=== PATIENT | male | born 1945 | race Caucasian/White ===

== ENCOUNTER → 2016-06-21 | Outpatient (CLI) | payer BC ==
[~2016-06-21] MED LIST: ADVIN25/60 INH; ALBU1AER9 INH; ASPI1TAB83 PO; CHOL20009 PO; EFFSR150 PO; LRS20 PO; METH-307 PO; MOME50SP5 NAE; MULT-506 PO; NATA1INJ IV.; OMEP20CA9 OR; OXYC-59 PO; QUET-205 PO; SENN-65 PO; TEMA15CA4 PO; [UNRECOGNIZED DRUG - CODE] PO; [UNRECOGNIZED DRUG - OTHER]
[2016-06-21 11:11] LABS: BASO % 0.4 %; BASO ABS # 0.04 K/uL (0-0.2); COMPLETE YES; EOS % 4.9 %; HEMATOCRIT 40.3 % (42-52); IG% 0.2 %; LYMPH % 46.8 %; LYMPH ABS # 4.19 K/uL (1.2-3.4); MEAN CELL VOLUME 86.1 fL (80-100); MEAN CORPUSCULAR HEMOGLOBIN 29.9 pg (25-34); MEAN CORPUSCULAR HGB CONC 34.7 g/dl (32-36); MEAN PLATELET VOLUME 10.3 fL (7.4-10.4); MONO % 6.8 %; NEUT % 40.9 %; PLATELET COUNT 178 K/uL (130-400); RED BLOOD COUNT 4.68 M/uL (4.7-6.1); WHITE BLOOD COUNT 8.96 K/uL (4.8-10.8)
[2016-06-21 11:43] LABS: BLOOD UREA NITROGEN 29 mg/dl (7-18); BUN/CREATININE RATIO 23.8 (10-20); CARBON DIOXIDE 31 mmol/L (21-32); CHLORIDE 100 mmol/L (98-107); GLUCOSE 161 mg/dl (70-99); POTASSIUM 3.3 mmol/L (3.5-5.1); SODIUM 140 mmol/L (136-145)
[2016-06-21 11:54] LABS: ALB/GLOB RATIO 1.1 (0.9-2); ALKALINE PHOSPHATASE 92 U/L (45-117); ALT/SGPT 22 U/L (12-78); AST/SGOT 18 U/L (15-37); THYROID STIMULATING HORMONE 0.806 uIu/ml (0.300-4.500)
== END | disposition home or self-care (01) ==
LOC: C.LAB1850 10:22
PROVIDERS: ATTEND Psychiatry & Neurology Neurology
DX: G35 Multiple sclerosis (principal); E55.9 Vitamin D deficiency, unspecified

== ENCOUNTER → 2016-07-03 | Outpatient (CLI) | payer BC ==
--- NOTE | 2016-07-03 15:18 | DIAGNOSTIC IMAGING REPORT ---
LUMBAR SPINE MRI HISTORY: LUMBAR RADICULOPATHY TECHNIQUE: Multiplanar multisequence MRI of the lumbar spine was performed without the use of contrast. COMPARISON: Lumbar spine MRI 11/03/2010. FINDINGS: For the purpose of the report the L5-S1 disc space will be located on axial image 27 of 30. Alignment is intact. No acute fractures within the visualized osseous structures. The conus terminates at the L1 level. Mild subcutaneous edema within the lumbar region. The T12-L1, L1-L2, and L4-L5 vertebral bodies are partially fused. This has progressed in the interval. Moderate disc space narrowing at L2-L3 and L3-L4 is not significantly changed. Mild to moderate facet degenerative changes throughout the lumbar spine are again noted. Large bridging osteophytes throughout the lumbar spine. Multiple scattered T1 and T2 hyperintense lesions within the lumbar spine with the largest at L4 measuring 2 cm. These remain unchanged and are consistent with hemangiomas. A 3.6 cm T2 hyperintense lesion within the right kidney. This likely represents a cyst. Paraspinal soft tissues are unremarkable. L1-L2: No significant central canal or neural foraminal narrowing. L2-L3: Broad-based posterior disc bulge resulting in mild central canal and mild bilateral neural foraminal narrowing. This is not significantly changed. L3-L4: Broad-based posterior disc bulge with a left extraforaminal annular tear. In conjunction with the ligamentum and facet hypertrophy this results in moderate central canal and moderate right neural foraminal narrowing. There is mild left neural foraminal narrowing. This is also similar to the prior study. L4-L5: No significant central canal narrowing. Mild bilateral neural foraminal narrowing, unchanged. L5-S1: No significant central canal or neural foraminal narrowing. IMPRESSION: 1. Overall, no significant change in the multilevel lumbar spondylosis as described above. This is most pronounced at the L3-L4 level where there is moderate central canal narrowing. 2. No acute fracture or subluxation. 3. Multiple partially fused vertebral bodies. Electronically signed by: Augie Fernandez M.D. 07/03/2016 3:17 PM Dictated Date/Time: 07/03/2016 3:08 PM
== END | disposition home or self-care (01) ==
LOC: C.OPENMRI 13:11
PROVIDERS: ATTEND Psychiatry & Neurology Neurology
DX: M54.16 Radiculopathy, lumbar region (principal); M43.16 Spondylolisthesis, lumbar region

== ENCOUNTER → 2016-08-23 | Outpatient (CLI) | payer BC | END | disposition home or self-care (01) | LOC: C.LAB1850 13:34 | PROVIDERS: ATTEND Internal Medicine Pulmonary Disease | DX: Z11.59 Encounter for screening for other viral diseases (principal) ==

== ENCOUNTER → 2017-01-26 | Outpatient (CLI) | payer BC ==
[2017-01-26 11:40] LABS: BASO % 0.4 %; BASO ABS # 0.04 K/uL (0-0.2); COMPLETE YES; EOS % 3.7 %; HEMATOCRIT 42.5 % (42-52); IG% 0.4 %; LYMPH % 40.4 %; LYMPH ABS # 3.91 K/uL (1.2-3.4); MEAN CELL VOLUME 87.3 fL (80-100); MEAN CORPUSCULAR HEMOGLOBIN 30.4 pg (25-34); MEAN CORPUSCULAR HGB CONC 34.8 g/dl (32-36); MEAN PLATELET VOLUME 10.5 fL (7.4-10.4); MONO % 8.3 %; NEUT % 46.8 %; PLATELET COUNT 175 K/uL (130-400); RED BLOOD COUNT 4.87 M/uL (4.7-6.1); WHITE BLOOD COUNT 9.67 K/uL (4.8-10.8)
[2017-01-26 11:59] LABS: ALT/SGPT 25 U/L (12-78); BLOOD UREA NITROGEN 24 mg/dl (7-18); BUN/CREATININE RATIO 22.1 (10-20); CALCIUM 8.9 mg/dl (8.5-10.1); CARBON DIOXIDE 29 mmol/L (21-32); CHLORIDE 105 mmol/L (98-107); GLUCOSE 126 mg/dl (70-99); POTASSIUM 3.9 mmol/L (3.5-5.1); SODIUM 140 mmol/L (136-145)
[2017-01-26 12:10] LABS: ALB/GLOB RATIO 1.1 (0.9-2); ALKALINE PHOSPHATASE 87 U/L (45-117); AST/SGOT 13 U/L (15-37)
== END | disposition home or self-care (01) ==
LOC: C.LAB1850 10:09
PROVIDERS: ATTEND Psychiatry & Neurology Neurology
DX: G35 Multiple sclerosis (principal); E55.9 Vitamin D deficiency, unspecified; R41.3 Other amnesia; R53.83 Other fatigue

== ENCOUNTER → 2017-02-13 | Outpatient (CLI) | payer BC ==
[~2017-02-13] MED LIST changes: +GADAVIST IV PRN
--- NOTE | 2017-02-13 13:43 | DIAGNOSTIC IMAGING REPORT ---
BRAIN COMBO FOR MS HISTORY: G35 Multiple sclerosis TECHNIQUE: Multiplanar multisequence MRI of the brain was performed both before and after the intravenous administration of contrast. COMPARISON STUDY: 02/28/2016 FINDINGS: Multiple foci of increased signal within the periventricular and deep white matter regions. Images are also seen in the left central pontine medullary region. All findings are similar compared to the prior study. There are no significant new or interval findings. There is no significant postcontrast enhancement. Ventricular system is midline. Internal auditory canals are unremarkable. There is again no abnormal postcontrast enhancement. Diffusion-weighted images are considered negative for an acute ischemic insult. IMPRESSION: 1. Multiple T2 hyperintense lesions unchanged from the prior study.. 2. No evidence for abnormal postcontrast enhancement. 3. The appearance is consistent with that of multiple sclerosis, unchanged from the prior exam. The above report was generated using voice recognition software. It may contain grammatical, syntax or spelling errors. Electronically signed by: Alex Evangelista M.D. 02/13/2017 1:42 PM Dictated Date/Time: 02/13/2017 1:37 PM
== END | disposition home or self-care (01) ==
LOC: C.MRI 12:25
PROVIDERS: ATTEND Psychiatry & Neurology Neurology
DX: G35 Multiple sclerosis (principal)

== ENCOUNTER → 2017-08-03 | Outpatient (CLI) | payer BC ==
[~2017-08-03] MED LIST changes: -GADAVIST IV PRN
[2017-08-03 12:03] LABS: BASO % 0.6 %; BASO ABS # 0.09 K/uL (0-0.2); EOS % 2.4 %; EOS ABS # 0.34 K/uL (0-0.5); HEMATOCRIT 40.3 % (42-52); HEMOGLOBIN 14.4 g/dL (14.0-18.0); IG# 0.32 K/uL (0.00-0.02); LYMPH % 32.3 %; MEAN CELL VOLUME 84.8 fL (80-100); MEAN CORPUSCULAR HEMOGLOBIN 30.3 pg (25-34); MEAN CORPUSCULAR HGB CONC 35.7 g/dl (32-36); MEAN PLATELET VOLUME 9.3 fL (7.4-10.4); MONO % 9.2 %; MONO ABS # 1.28 K/uL (0.11-0.59); NEUT % 53.2 %; NEUT ABS # 7.41 K/uL (1.4-6.5); NUCLEATED RED BLOOD CELL ABS 0.11 K/uL (0-0); PLATELET COUNT 255 K/uL (130-400); RED CELL DISTRIBUTION WIDTH CV 13.5 % (11.5-14.5); RED CELL DISTRIBUTION WIDTH SD 41.2 fL (36.4-46.3); WHITE BLOOD COUNT 13.94 K/uL (4.8-10.8)
[2017-08-03 12:33] LABS: ALBUMIN 3.3 gm/dl (3.4-5.0); ALT/SGPT 32 U/L (12-78); BLOOD UREA NITROGEN 26 mg/dl (7-18); CALCIUM 9.1 mg/dl (8.5-10.1); CARBON DIOXIDE 31 mmol/L (21-32); CREATININE 1.06 mg/dl (0.60-1.40); GLUCOSE 135 mg/dl (70-99); POTASSIUM 3.6 mmol/L (3.5-5.1); SODIUM 139 mmol/L (136-145)
[2017-08-03 12:44] LABS: ALKALINE PHOSPHATASE 95 U/L (45-117); AST/SGOT 13 U/L (15-37); TOTAL PROTEIN 7.6 gm/dl (6.4-8.2)
== END | disposition home or self-care (01) ==
LOC: C.LAB1850 11:12
PROVIDERS: ATTEND Psychiatry & Neurology Neurology
DX: G35 Multiple sclerosis (principal)

== ENCOUNTER → 2017-08-27 | Outpatient (CLI) | payer BC ==
--- NOTE | 2017-08-27 14:19 | DIAGNOSTIC IMAGING REPORT ---
CHEST 2 VIEWS ROUTINE CLINICAL HISTORY: R06.02 Shortness of [id number] dyspnea COMPARISON STUDY: No previous studies for comparison. FINDINGS: Mild emphysematous change. Mild basilar interstitial prominence. Mid and upper lungs are considered clear. Multiple old left-sided rib fractures. IMPRESSION: Mild emphysematous change. Mild basilar interstitial prominence most likely chronic. The above report was generated using voice recognition software. It may contain grammatical, syntax or spelling errors. Electronically signed by: Alex Evangelista M.D. 08/27/2017 2:18 PM Dictated Date/Time: 08/27/2017 2:16 PM
== END | disposition home or self-care (01) ==
LOC: C.RAD1850 13:25
PROVIDERS: ATTEND Internal Medicine Pulmonary Disease
DX: R06.02 Shortness of breath (principal)

== ENCOUNTER → 2018-01-22 | Outpatient (CLI) | payer BC ==
[~2018-01-22] MED LIST changes: -OXYC-59 PO; +OXYC10TA2 PO
[2018-01-22 13:15] LABS: BASO % 0.6 %; BASO ABS # 0.06 K/uL (0-0.2); EOS % 3.7 %; EOS ABS # 0.34 K/uL (0-0.5); HEMATOCRIT 41.4 % (42-52); HEMOGLOBIN 14.5 g/dL (14.0-18.0); IG# 0.05 K/uL (0.00-0.02); LYMPH % 45.5 %; LYMPH ABS # 4.21 K/uL (1.2-3.4); MEAN CELL VOLUME 85.7 fL (80-100); MONO % 7.6 %; NEUT % 42.1 %; NEUT ABS # 3.89 K/uL (1.4-6.5); NUCLEATED RED BLOOD CELL ABS 0.08 K/uL (0-0); PLATELET COUNT 165 K/uL (130-400); RED CELL DISTRIBUTION WIDTH SD 43.7 fL (36.4-46.3); WHITE BLOOD COUNT 9.25 K/uL (4.8-10.8)
[2018-01-22 14:46] LABS: ALBUMIN 3.8 gm/dl (3.4-5.0); ALKALINE PHOSPHATASE 79 U/L (45-117); ALT/SGPT 24 U/L (12-78); AST/SGOT 13 U/L (15-37); BLOOD UREA NITROGEN 26 mg/dl (7-18); CALCIUM 9.3 mg/dl (8.5-10.1); CARBON DIOXIDE 32 mmol/L (21-32); CREATININE 1.05 mg/dl (0.60-1.40); GLUCOSE 88 mg/dl (70-99); POTASSIUM 3.7 mmol/L (3.5-5.1); SODIUM 137 mmol/L (136-145); TOTAL PROTEIN 7.3 gm/dl (6.4-8.2)
== END | disposition home or self-care (01) ==
LOC: C.LAB1850 11:59
PROVIDERS: ATTEND Physician Assistant
DX: G35 Multiple sclerosis (principal)

== ENCOUNTER 2018-09-07 11:25 | Observation (INO) ==
[2018-09-07] MEDS ORDERED: SODIUM CHLORIDE 0.9% 500 ML IV SCH (12:15)
[2018-09-07] MEDS ORDERED: SODIUM CHLORIDE 0.9% 1000ML 1,000 ML IV SCH (12:15)
[2018-09-07 12:16] LABS: Basophils # (auto) 0.02 K/uL (0-0.2); Basophils % (auto) 0.2 %; Eosinophils # (auto) 0.18 K/uL (0-0.5); Eosinophils % (auto) 2.1 %; Hematocrit (blood only) 38.9 % (42-52); Hemoglobin 13.8 g/dL (14.0-18.0); Immature Granulocytes # (auto) 0.05 K/uL (0.00-0.02); Immature Granulocytes % (auto) 0.6 %; Lymphocytes # (auto) 2.21 K/uL (1.2-3.4); Lymphocytes % (auto) 26.1 %; Mean Corpuscular Hgb Conc 35.5 g/dL (32-36); Mean Corpuscular Volume 85.1 fL (80-100); Mean Platelet Volume 9.8 fL (7.4-10.4); Monocytes # (auto) 0.64 K/uL (0.11-0.59); Monocytes % (auto) 7.6 %; Neutrophils # (auto) 5.37 K/uL (1.4-6.5); Neutrophils % (auto) 63.4 %; Nucleated RBC % (auto) 1.2 %; Platelet Count 148 K/uL (130-400); RDW Coefficient of Variation 13.4 % (11.5-14.5); RDW Standard Deviation 41.4 fL (36.4-46.3); Red Blood Count 4.57 M/uL (4.7-6.1); White Blood Count 8.47 K/uL (4.8-10.8)
[2018-09-07 12:24] LABS: Alanine Aminotransferase 21 U/L (12-78); Albumin Level 3.4 gm/dl (3.4-5.0); Aspartate Aminotransferase 9 U/L (15-37); BUN Creatinine Ratio 17.4 (10-20); Blood Urea Nitrogen 24 mg/dl (7-18); Calcium 8.3 mg/dl (8.5-10.1); Carbon Dioxide 29 mmol/L (21-32); Chloride 105 mmol/L (98-107); Est GFR (African American) 58.2; Est GFR (Non-African American) 50.2; Glucose 215 mg/dl (70-99); Potassium 3.6 mmol/L (3.5-5.1); Sodium 140 mmol/L (136-145)
[2018-09-07 12:28] LABS: Albumin Globulin Ratio 1.1 (0.9-2); Alkaline Phosphatase 80 U/L (45-117); Bilirubin,Total 0.8 mg/dl (0.2-1); Globulin 3.2 gm/dl (2.5-4.0); Total Protein 6.6 gm/dl (6.4-8.2); Troponin I < 0.015 ng/ml (0-0.045)
--- NOTE | 2018-09-07 12:49 | CT Scan Report ---
CT head/brain wo con CLINICAL HISTORY: 72 years-old Male with AMS, slurred speech. Acutely altered mental status TECHNIQUE: Multiple axial CT images of the head were obtained without contrast. A dose lowering tech nique was utilized adhering to the principles of ALARA. CT DOSE: 709.48 mGy.cm COMPARISON: CT head and MRI brain 09/05/2018. FINDINGS: No acute intracranial hemorrhage, midline shift, intracranial mass, hydrocephalus, territorial ischem ia or abnormal extra-axial collection. Age-related involutional changes with unchanged white matter h ypodensities. Areas of remote lacunar infarction noted about the basal ganglia. Cerebral vascular frandy cifications also noted. The calvarium is intact. Rightward bowing and spurring of the nasal septum. Left melissa bullosa. Soft tissues and orbits are unremarkable. Postoperative changes suggest prior bilateral cataract repair. The paranasal sinuses, mastoid air cells, and middle ear cavities are clear. IMPRESSION: No acute intracranial abnormality. The above report was generated using voice recognition software. It may contain grammatical, syntax o r spelling errors. Electronically signed by: Adams Haney M.D. 09/07/2018 12:48 PM
--- NOTE | 2018-09-07 14:34 | History & Physical Report ---
Date of Service September 07, 2018 Assessment & Plan (1) Altered mental status: Appears to be medication-related as patient was in normal state of health, then took his AM meds, then was found to be obtunded. Similar episode on 09/05 with full work-up, including MRI brain was negative. - Outpatient records indicate venlafaxine was increased from 225mg to 300mg during last neurology visit on 08/22. - Will lower all sedating meds and monitor. If no further episodes of lethargy, can likely discharge with close neurology follow up (2) Multiple sclerosis: On natalizumab Qmonth. Concern for PML on original presentation, but MRI on 09/05 was normal and patient's mental status returned to normal after initial episode. - No major inpatient needs (3) COPD (chronic obstructive pulmonary disease): Breathing on exam is clear without wheezing. No shortness of breath or cough per patient. - Continue home meds (4) Hypertension: BP normal in the ED at 120/70. - Continue home meds (5) DVT prophylaxis: SCDs & early ambulation - Likely discharge in <24 hours History of Present Illness Primary Care Provider: Jude De La Rosa MD 72-year-old male with a history of multiple sclerosis who presents with 2 episodes of lethargy. First episode happened on . Family reports that the patient is normal state of health in the morning; however, later in the morning a family member found him tired, lethargic, and with slurred speech in bed. He is brought the emergency department where he had a full and infectious workup that was negative, including an MRI brain which did not show any new MS lesions. He was sent home at that time as he returned to his baseline state of health. A similar incident happened again this morning. His son reports that he spoke with him on the phone at 8:30 in the morning and the patient was in his normal state of health. At approximately 10:30 in the morning he called his daughter reporting that he was tired, lethargic, and could barely pull his phone of his pocket. He is brought to the emergency department once again where lab work, CT head imaging, and vital signs were all stable. At present time the patient is returning to his normal state of health. His voice is still slurred per his family, but improving. Patient has no focal complaints at this time. Denies any fevers, chills, lightheadedness, nausea, vomiting, diarrhea, constipation, shortness of breath, cough, or other focal complaints. Allergies Allergy/AdvReac Type Severity Reaction Status Date / Time latex Allergy Unknown unknown Verified 09/05/18 12:25 adhesive AdvReac Intermediate RASH UNDER Verified 09/05/18 12:25 TAPES Home Medications Home Medications Medication Instructions Recorded Confirmed Type albuterol sulfate 2.5 mg INHALATION QID PRN 09/05/18 09/07/18 History albuterol sulfate [ProAir HFA] 2 puff INHALATION Q4H PRN 09/05/18 09/07/18 History aspirin 81 mg PO DAILY 09/05/18 09/07/18 History budesonide-formoterol [Symbicort] 2 puff INHALATION BID 09/05/18 09/07/18 History cetirizine [Zyrtec] 10 mg PO DAILY 09/05/18 09/07/18 History cholecalciferol (vitamin D3) 4,000 unit PO DAILY 09/05/18 09/07/18 History [Vitamin D3] cyanocobalamin (vitamin B-12) 1,000 mcg PO DAILY 09/05/18 09/07/18 History [Vitamin B-12] gabapentin 300 mg PO BID 09/05/18 09/07/18 History gabapentin 600 mg PO HS 09/05/18 09/07/18 History losartan-hydrochlorothiazide 1 tab PO DAILY 09/05/18 09/07/18 History methocarbamol 750 mg PO BID 09/05/18 09/07/18 History multivitamin 1 tab PO DAILY 09/05/18 09/07/18 History natalizumab [Tysabri] 300 mg IV MONTHLY 09/05/18 09/07/18 History omeprazole 20 mg PO BID 09/05/18 09/07/18 History quetiapine [Seroquel] 200 mg PO HS 09/05/18 09/07/18 History temazepam 15 mg PO HS PRN 09/05/18 09/07/18 History tiotropium bromide [Spiriva with 1 cap INHALATION DAILY 09/05/18 09/07/18 History HandiHaler] venlafaxine 75 mg PO DAILY 09/05/18 09/07/18 History venlafaxine 150 mg PO DAILY 09/05/18 09/07/18 History Past Med/Surg History Medical History Multiple sclerosis (Chronic) Surgical History History of open heart surgery (Resolved) Family History Father Hypertension Social History Preferred Language: Citizen Of [place] marital status: Current Living Situation: Spouse Feels Safe at Home: Yes Smoking Status: Former smoker Review of Systems Constitutional: + fatigue and + weakness; no fever, no chills and no sweats Eyes: no diplopia Ear, Nose, Mouth, Throat: no ear trauma, no nasal discharge and no dental pain Respiratory: no cough, no chest congestion and no dyspnea Cardiovascular: no chest pain, no dyspnea on exertion, no palpitations and no syncope Gastrointestinal: no abdominal pain, no belching, no constipation, no diarrhea/loose stools, no blood in stools and no melena Musculoskeletal: no back pain, no joint pain and no muscle weakness Integumentary: no rash, no skin ulcer and no erythema Neurologic: no generalized weakness, no loss of sensation, no numbness and no paresthesia Psychiatric: no depression and no anxiety Endocrine: no fatigue, no polydipsia and no polyphagia Physical Exam Vital Signs (Past 24 Hours): Last Vital Signs Temp 36.4 C L 09/07/18 11:35 Pulse 79 09/07/18 12:30 Resp 18 09/07/18 12:30 BP 106/51 L 09/07/18 12:30 Pulse Ox 94 09/07/18 11:35 Constitutional: WD/WN, vitals as above well nourished and cooperative Eyes: EOM intact bilaterally; no conjunctival abnormality ENMT: external ear and nose normal, oropharynx normal Neck: trachea midline, no thyromegaly normal visual inspection Respiratory: normal respiratory effort, lungs clear to auscultation no respiratory distress Cardiovascular: RRR, no murmur, no edema Gastrointestinal (Abdomen): Inspection/Auscultation: abdomen normal to inspection; abdomen not distended Musculoskeletal: no cyanosis or clubbing, extremities motor strength 5/5 Skin: no rashes, warm and dry Neurologic: moves all extremities and awake Speech / Cognition: + abnormal speech (Slow, slurred) Psychiatric: Orientation: alert, oriented to person and cooperative (1) Altered mental status Altered mental status type: unspecified Qualified Code(s): R41.82 - Altered mental status, unspecified
--- NOTE | 2018-09-07 15:34 | Emergency Department Note ---
Entered by Rosa Mack acting as a scribe for History of Present Illness General Chief complaint: Neuro Symptoms/Deficit Stated complaint: LITHARGIC,NON COHERIENT, Source: patient and family History of Present Illness Onset (ago): day(s) (this morning) Location: head Pain Consistency: + other (episode) Quality: + other (fatigue and slurred speech) Associated symptoms: + chest pain, + shortness of breath, + weakness and + other (tingling in his extremities); no fever/chills The patient is a 72 year old male who presents to the Emergency Room with complaints of an episode of fatigue and slurred speech that started this morning. The patients son reports that the patient was at baseline this morning at 0830 when he spoke with the patient on the phone. The patient notes he got out of bed by himself and went about his normal morning routine but then suddenly felt very weak and could not get out of his chair. Patient's son is wondering if this could be related to his morning medication Robaxin. The patients daughter notes that the patient was not feeling at baseline yesterday but rested well over night. He states that he is short of breath and is experiencing chest pain along with tingling in his extremities. The patients family notes he has a history of MS. He notes he was last in the Emergency Room on (2 days ago) for similar issues. He reports that he has not taken his medications today as he usually takes them at night. Home Medications Home Medications Medication Instructions Recorded Confirmed Type albuterol sulfate 2.5 mg INHALATION QID PRN 09/05/18 09/07/18 History albuterol sulfate [ProAir HFA] 2 puff INHALATION Q4H PRN 09/05/18 09/07/18 History aspirin 81 mg PO DAILY 09/05/18 09/07/18 History budesonide-formoterol [Symbicort] 2 puff INHALATION BID 09/05/18 09/07/18 History cetirizine [Zyrtec] 10 mg PO DAILY 09/05/18 09/07/18 History cholecalciferol (vitamin D3) 4,000 unit PO DAILY 09/05/18 09/07/18 History [Vitamin D3] cyanocobalamin (vitamin B-12) 1,000 mcg PO DAILY 09/05/18 09/07/18 History [Vitamin B-12] gabapentin 300 mg PO BID 09/05/18 09/07/18 History gabapentin 600 mg PO HS 09/05/18 09/07/18 History losartan-hydrochlorothiazide 1 tab PO DAILY 09/05/18 09/07/18 History methocarbamol 750 mg PO BID 09/05/18 09/07/18 History multivitamin 1 tab PO DAILY 09/05/18 09/07/18 History natalizumab [Tysabri] 300 mg IV MONTHLY 09/05/18 09/07/18 History omeprazole 20 mg PO BID 09/05/18 09/07/18 History quetiapine [Seroquel] 200 mg PO HS 09/05/18 09/07/18 History temazepam 15 mg PO HS PRN 09/05/18 09/07/18 History tiotropium bromide [Spiriva with 1 cap INHALATION DAILY 09/05/18 09/07/18 History HandiHaler] venlafaxine 75 mg PO DAILY 09/05/18 09/07/18 History venlafaxine 150 mg PO DAILY 09/05/18 09/07/18 History Allergies Allergy/AdvReac Type Severity Reaction Status Date / Time latex Allergy Unknown unknown Verified 09/05/18 12:25 adhesive AdvReac Intermediate RASH UNDER Verified 09/05/18 12:25 TAPES Past Med/Surg History Medical History Multiple sclerosis (Chronic) Surgical History History of open heart surgery (Resolved) Family History Father Hypertension Social History Preferred Language: Bengali Communication Ability: Effective Floor Layer Required: No Beliefs That Will Affect Care: None marital status: Current Living Situation: Alone Feels Safe at Home: Yes Safety Concerns: Feels Safe At This Time Smoking Status: Former smoker Hx Alcohol Use: No Hx Substance Use: No Review of Systems See HPI for pertinent positives & negatives. and A total of 10 systems reviewed and were otherwise negative Physical Exam Vital Signs Vital Signs - 24 hr 09/07/18 11:35 09/07/18 12:30 09/07/18 14:33 Temperature 36.4 C L Temperature Source Oral Sepsis Recent Fever Within 48 Hours No Sepsis New/Unexplained Change in Mental Status No Sepsis Action Taken by Nursing No Action Required Pulse Rate 85 Pulse Rate [Apical] 79 70 Respiratory Rate 17 18 16 Respiratory Effort / Characteristics Non-Labored Respiratory Depth Normal Respiratory Pattern Regular Blood Pressure 95/53 L Blood Pressure [Right Arm] 106/51 L 121/70 Blood Pressure Mean 67 Blood Pressure Mean [Right Arm] 69 87 Blood Pressure Position Sitting Pulse Oximetry 94 Oxygen Delivery Method Room Air 09/07/18 14:54 Temperature Temperature Source Sepsis Recent Fever Within 48 Hours Sepsis New/Unexplained Change in Mental Status Sepsis Action Taken by Nursing Pulse Rate Pulse Rate [Apical] Respiratory Rate Respiratory Effort / Characteristics Respiratory Depth Respiratory Pattern Regular Blood Pressure Blood Pressure [Right Arm] Blood Pressure Mean Blood Pressure Mean [Right Arm] Blood Pressure Position Pulse Oximetry Oxygen Delivery Method Room Air Vital signs reviewed. General: Elderly, Obese, chronically-ill appearing male, in no significant distress. Slightly hypotensive. HEENT: No scleral icterus, PERRLA, neck supple. Atraumatic. Cardiovascular: Regular rate and rhythm, no extra sounds. Pulmonary: Clear to auscultation bilaterally, normal work of breathing. Abdomen: Soft, nontender, nondistended, positive bowel sounds. Musculoskeletal: Atraumatic, no peripheral edema. Neurologic: Patient somnolent but awake. Answers questions appropriately. Follows commands. Skin: Warm, dry, no rash Course 1150: The patient was evaluated in room A11B, and a complete history and physical examination were performed. 1334: I discussed the results and findings with Dr. Renny Russ [facility], who will evaluate the patient for further management and care 1400: I discussed today's findings with the patient. He verbalized agreement of the treatment plan. The patient will be evaluated for further management and care. Administered Medications Sodium Chloride (Nss 1000ml) 1,000 mls @ 125 mls/hr IV .Q8H [facility] Stop: 10/07/18 12:14 Last Admin: 09/07/18 12:34 Dose: 125 mls/hr Documented by: [id number] Discontinued Medications Sodium Chloride (Nss) 500 mls @ 999 mls/hr IV .Q31M [facility] Stop: 09/07/18 12:45 Last Infusion: 09/07/18 13:01 Dose: 0 mls/hr Documented by: [id number] Admin: 09/07/18 12:34 Dose: 999 mls/hr Documented by: [id number] Medical Decision Making Differential Diagnosis Differential diagnosis: Etiologies such as metabolic, infection, hypo/hyperglycemia, electrolyte abnormalities, cardiac sources, intracerebral event, toxicologic, neurologic, as well as others were entertained. Medical Records Attestation: I reviewed the patient's medical records. Home Medications Current Medication List: was personally reviewed by me Laboratory Data Attestation: I reviewed the patient's lab results. Result diagrams: 09/07/18 11:43 09/07/18 11:43 Lab Results 09/07/18 09/07/18 Range/Units 11:43 11:43 WBC 8.47 (4.8-10.8) K/uL RBC 4.57 L (4.7-6.1) M/uL Hgb 13.8 L (14.0-18.0) g/dL Hct 38.9 L (42-52) % MCV 85.1 (80-100) fL MCH 30.2 (25-34) pg MCHC 35.5 (32-36) g/dL RDW Std Deviation 41.4 (36.4-46.3) fL RDW Coeff of Lilia 13.4 (11.5-14.5) % Plt Count 148 (130-400) K/uL MPV 9.8 (7.4-10.4) fL Immature Gran % (Auto) 0.6 % Neut % (Auto) 63.4 % Lymph % (Auto) 26.1 % Waller % (Auto) 7.6 % Eos % (Auto) 2.1 % Baso % (Auto) 0.2 % Immature Gran # (Auto) 0.05 H (0.00-0.02) K/uL Neut # (Auto) 5.37 (1.4-6.5) K/uL Lymph # (Auto) 2.21 (1.2-3.4) K/uL Waller # (Auto) 0.64 H (0.11-0.59) K/uL Eos # (Auto) 0.18 (0-0.5) K/uL Baso # (Auto) 0.02 (0-0.2) K/uL Absolute Nucleated RBC 0.10 H (0-0) K/uL Nucleated RBC % (auto) 1.2 % Sodium 140 (136-145) mmol/L Potassium 3.6 (3.5-5.1) mmol/L Chloride 105 (98-107) mmol/L Carbon Dioxide 29 (21-32) mmol/L Anion Gap 6.0 (3-11) BUN 24 H (7-18) mg/dl Creatinine 1.40 (0.6-1.4) mg/dl Est Cr Clr Drug Dosing Not Reportable Est GFR ( Amer) 58.2 Est GFR (Non-Af Amer) 50.2 BUN/Creatinine Ratio 17.4 (10-20) Glucose 215 H (70-99) mg/dl Calcium 8.3 L (8.5-10.1) mg/dl Total Bilirubin 0.8 (0.2-1) mg/dl AST 9 L (15-37) U/L ALT 21 (12-78) U/L Alkaline Phosphatase 80 (45-117) U/L Troponin I < 0.015 (0-0.045) ng/ml Total Protein 6.6 (6.4-8.2) gm/dl Albumin 3.4 (3.4-5.0) gm/dl Globulin 3.2 (2.5-4.0) gm/dl Albumin/Globulin Ratio 1.1 (0.9-2) Imaging Data Radiologist's Impression: Radiology results as stated below per my review and the radiologist's interpretation: CT head/brain wo con CLINICAL HISTORY: 72 years-old Male with AMS, slurred speech. Acutely altered mental status TECHNIQUE: Multiple axial CT images of the head were obtained without contrast. A dose lowering technique was utilized adhering to the principles of ALARA. CT DOSE: 709.48 mGy.cm COMPARISON: CT head and MRI brain 09/05/2018. FINDINGS: No acute intracranial hemorrhage, midline shift, intracranial mass, hydrocephalus, territorial ischemia or abnormal extra-axial collection. Age- related involutional changes with unchanged white matter hypodensities. Areas of remote lacunar infarction noted about the basal ganglia. Cerebral vascular calcifications also noted. The calvarium is intact. Rightward bowing and spurring of the nasal septum. Left melissa bullosa. Soft tissues and orbits are unremarkable. Postoperative changes suggest prior bilateral cataract repair. The paranasal sinuses, mastoid air cells, and middle ear cavities are clear. IMPRESSION: No acute intracranial abnormality. The above report was generated using voice recognition software. It may contain grammatical, syntax or spelling errors. Electronically signed by: Adams Haney M.D. 09/07/2018 12:48 PM ECG Data Attestation: I personally reviewed and interpreted this ECG as follows: Indication: altered mental status Rate (beats per minute): 76 Rhythm: normal sinus Findings: + other (QTC is 456); no PAC, no PVC, no ST depression, no ST elevation, no acute ischemic change and no ectopy Blood Pressure Blood Pressure Findings: Low blood pressure MDM Narrative This patient was evaluated and appeared to be in no significant distress. Physical examination reveals slight generalized weakness however there is no focal neurologic deficit. He appears to be very similar as he did 2 days previous on my exam. We did a thorough workup including MRI brain combo at that time looking for complications of his MS medication/PML. There was no evidence of this on imaging. Patient did well yesterday but was slightly more fatigued than usual. A full workup was performed today including EKG, head CT and laboratory work. There is no acute abnormality noted with the exception of a mild hypotension. Patient was hydrated with normal saline solution. Given the patient's MS, age and the fact that he lives at home alone, I feel be in his best interest to be observed due to the mental status changes until we can definitively identify a medication reaction as the issue. Patient's family seems happy with this plan and agrees. Impression & Plan Altered mental status, Medication reaction, Hypotension Discharge Plan Visit Data Chief Complaint: Neuro Symptoms/Deficit Stated Complaint: LITHARGIC,NON COHERIENT, ED Provider: Cassandra Braga Discharge Problem: Altered mental status, Medication reaction, Hypotension Patient Disposition: Being Evaluated by Hospitalist Discharge Instructions Interventions: ED Discharge Assessment Last Done: 09/07/18 14:49 Forms Stand Alone Forms: My [employer] Prescriptions Prescriptions: No Action multivitamin Tablet 1 tab PO DAILY RF: 0 albuterol sulfate 2.5 mg /3 mL (0.083 %) Solution For Nebulization 2.5 mg INHALATION QID PRN (Reason: Shortness Of Breath) RF: 0 cetirizine [Zyrtec] 10 mg Tablet 10 mg PO DAILY RF: 0 quetiapine [Seroquel] 200 mg Tablet 200 mg PO HS RF: 0 venlafaxine 150 mg Capsule,Extended Release 24hr 150 mg PO DAILY RF: 0 cyanocobalamin (vitamin B-12) [Vitamin B-12] 1,000 mcg Tablet 1,000 mcg PO DAILY RF: 0 aspirin 81 mg Tablet,Delayed Release (Dr/Ec) 81 mg PO DAILY RF: 0 losartan-hydrochlorothiazide 100-25 mg Tablet 1 tab PO DAILY RF: 0 methocarbamol 750 mg Tablet 750 mg PO BID RF: 0 temazepam 15 mg Capsule 15 mg PO HS PRN (Reason: Sleep) RF: 0 gabapentin 300 mg Capsule 300 mg PO BID RF: 0 gabapentin 300 mg Capsule 600 mg PO HS RF: 0 omeprazole 20 mg Capsule,Delayed Release(Dr/Ec) 20 mg PO BID RF: 0 albuterol sulfate [ProAir HFA] 90 mcg/actuation Hfa Aerosol Inhaler 2 puff INHALATION Q4H PRN (Reason: Shortness Of Breath) RF: 0 Spiriva with HandiHaler 18 mcg Capsule, W/Inhalation Device 1 cap INHALATION DAILY RF: 0 Tysabri 300 mg/15 mL Solution 300 mg IV MONTHLY RF: 0 Symbicort 160-4.5 mcg/actuation Hfa Aerosol Inhaler 2 puff INHALATION BID RF: 0 cholecalciferol (vitamin D3) [Vitamin D3] 2,000 unit Capsule 4,000 unit PO DAILY RF: 0 venlafaxine 75 mg Tablet Extended Release 24hr 75 mg PO DAILY RF: 0 Referrals Referrals: Jude De La Rosa MD [Primary Care Provider] - Discharge Problem: Altered mental status Qualifiers: Altered mental status type: unspecified Qualified Code(s): R41.82 - Altered mental status, unspecified Medication reaction Qualifiers: Encounter type: initial encounter Qualified Code(s): T50.905A - Adverse effect of unspecified drugs, medicaments and biological substances, initial encounter Hypotension Qualifiers: Hypotension type: unspecified hypotension type Qualified Code(s): I95.9 - Hypotension, unspecified The scribe's documentation has been prepared under my direction and personally reviewed by me in its entirety. I confirm that the note above accurately reflects all work, treatment, procedures, and medical decision making performed by me.
[2018-09-07] MEDS ORDERED: ALBUTEROL 0.083% NEBU SOLN 3 ML VIAL INH PRN (17:01)
[2018-09-07] MEDS ORDERED: ACETAMINOPHEN 325 MG TAB PO PRN (17:01)
[2018-09-07] MEDS ORDERED: METHOCARBAMOL 750 MG TABLET PO PRN (17:01)
[2018-09-07] MEDS: BUDESONIDE/FORMOTEROL FUMARATE 160/4.5 60 PUFFS/INHALER INH SCH (20:25)
[2018-09-07] MEDS: PANTOprazole 40 MG TAB PO SCH (20:28)
[2018-09-07] MEDS ORDERED: GABAPENTIN 300 MG CAP PO SCH (21:00)
[2018-09-07] MEDS ORDERED: GABAPENTIN 600 MG TAB PO SCH (21:00)
[2018-09-07] MEDS ORDERED: QUETIAPINE FUMARATE 200 MG TAB PO SCH (21:00)
[2018-09-08 07:12] VITALS: PULSE 67; TEMP 98.1; O2SAT 94
[2018-09-08] MEDS ORDERED: ASPIRIN 81 MG ECTAB PO SCH (09:00)
[2018-09-08] MEDS ORDERED: LOSARTAN/HCTZ 50/12.5MG TAB PO SCH (09:00)
[2018-09-08] MEDS ORDERED: VENLAFAXINE HCL XR 150 MG CAPXR PO SCH (09:00)
[2018-09-08] MEDS ORDERED: TIOTROPIUM BROMIDE 5 PUFF/90 MCG INH INH SCH (09:00)
[2018-09-08] MEDS: BUDESONIDE/FORMOTEROL FUMARATE 160/4.5 60 PUFFS/INHALER INH SCH (09:17)
[2018-09-08] MEDS: PANTOprazole 40 MG TAB PO SCH (09:17)
[2018-09-08 09:22] VITALS: BP 153/77
--- NOTE | 2018-09-08 14:42 | Discharge Summary ---
Date of Service September 08, 2018 Admission HPI Per Admitting Provider 72-year-old male with a history of multiple sclerosis who presents with 2 episodes of lethargy. First episode happened on . Family reports that the patient is normal state of health in the morning; however, later in the morning a family member found him tired, lethargic, and with slurred speech in bed. He is brought the emergency department where he had a full and infectious workup that was negative, including an MRI brain which did not show any new MS lesions. He was sent home at that time as he returned to his baseline state of health. A similar incident happened again this morning. His son reports that he spoke with him on the phone at 8:30 in the morning and the patient was in his normal state of health. At approximately 10:30 in the morning he called his daughter reporting that he was tired, lethargic, and could barely pull his phone of his pocket. He is brought to the emergency department once again where lab work, CT head imaging, and vital signs were all stable. At present time the patient is returning to his normal state of health. His voice is still slurred per his family, but improving. Patient has no focal complaints at this time. Denies any fevers, chills, lightheadedness, nausea, vomiting, diarrhea, constipation, shortness of breath, cough, or other focal complaints. Admission Exam Per Admitting Provider Constitutional: WD/WN, vitals as above well nourished and cooperative Eyes: EOM intact bilaterally; no conjunctival abnormality ENMT: external ear and nose normal, oropharynx normal Neck: trachea midline, no thyromegaly normal visual inspection Respiratory: normal respiratory effort, lungs clear to auscultation no respiratory distress Cardiovascular: RRR, no murmur, no edema Gastrointestinal (Abdomen): Inspection/Auscultation: abdomen normal to inspection; abdomen not distended Musculoskeletal: no cyanosis or clubbing, extremities motor strength 5/5 Skin: no rashes, warm and dry Neurologic: moves all extremities and awake Speech / Cognition: + abnormal speech (Slow, slurred) Psychiatric: Orientation: alert, oriented to person and cooperative Principal Diagnosis Altered mental status secondary to medication side effects Discharge Exam Constitutional WD/WN, vitals as above Eyes PERRL, conjunctivae normal, anicteric sclerae ENMT external ear and nose normal, oropharynx normal Neck trachea midline, no thyromegaly Respiratory normal respiratory effort, lungs clear to auscultation Cardiovascular RRR, no murmur, no edema Gastrointestinal (Abdomen) normal bowel sounds, soft, nontender, no hepatosplenomegaly Musculoskeletal no cyanosis or clubbing, extremities motor strength 5/5 Skin no rashes, warm and dry Neurologic patellar DTR's 2+ bilat, sensation intact and PERRL, EOMI, accommodation nl, no face palsy, no dysarthria Psychiatric A+Ox3, euthymic affect Lymphatic no cervical or axillary lymphadenopathy Discharge Data Allergies Allergy/AdvReac Type Severity Reaction Status Date / Time latex Allergy Unknown unknown Verified 09/05/18 12:25 adhesive AdvReac Intermediate RASH UNDER Verified 09/05/18 12:25 TAPES Consultations 09/07/18 14:08 ED Decision to Admit Stat Ordered Studies 09/07/18 12:05 CT head/brain wo con Stat Hospital Course (1) Altered mental status: Appears to be medication-related as patient was in normal state of health, then took his AM meds, then was found to be obtunded. Similar episode on 09/05 with full work-up, including MRI brain was negative. - Outpatient records indicate venlafaxine was increased from 225mg to 300mg during last neurology visit on 08/22. discussed with neurology, will now give Venlafaxine at night instead of the mo rning also, will hold gabapentin during the day, only give 600mg at night follow up with Dr. De La Rosa tomorrow Dr. Jackson in 1-2 weeks in neurology clinic (2) Multiple sclerosis: On natalizumab Qmonth. Concern for PML on original presentation, but MRI on 09/05 was normal and patient's mental status returned to normal after initial episode. - No major inpatient needs (3) COPD (chronic obstructive pulmonary disease): Breathing on exam is clear without wheezing. No shortness of breath or cough per patient. - Continue home meds (4) Hypertension: BP normal in the ED at 120/70. - Continue home meds (5) DVT prophylaxis: SCDs & early ambulation - Likely discharge in <24 hours Total Time Total Time Spent Total Time Spent (In Minutes): 20 minutes Total Time Includes: Examination of the Patient, Discharge Planning and Medication Reconciliation Discharge Plan Discharge Items Patient Disposition: Home - Self-Care Reason For Visit: LETHARGY Discharge Diagnosis: Altered mental status, likely due to medications Condition: Good Discharge Goals: Improve disease control and Improve function Activity: Resume your previous activity Non-emergency contact: Primary Care Provider and Neurologist Call non-emergency contact if: you have any medication questions, your symptoms worsen and you have a fever Follow-up/Referrals: Jude De La Rosa MD [Primary Care Provider] - Diet: Heart Healthy Addtl Provider Instructions: Medications: - VENLAFAXINE: take 225mg at bedtime, you were previously taking this in the morning - GABAPENTIN: only take the 600mg at night, do not take the 300mg tablets during the day Lethargy, altered mental status likely medication induced extensive work up last time you were in the ED, did not show any cause Dr Jackson feels this is due to medications recommends taking the Venlafaxine at night instead of the morning recommends only taking Gabapentin at night FOLLOW UP - Dr. De La Rosa tomorrow as scheduled - call neurology clinic with Dr. Jackson tomorrow, he would like to see you in 1-2 weeks for follow up Prescriptions: Continued multivitamin Tablet 1 tab PO DAILY RF: 0 albuterol sulfate 2.5 mg /3 mL (0.083 %) Solution For Nebulization 2.5 mg INHALATION QID PRN (Reason: Shortness Of Breath) RF: 0 cetirizine [Zyrtec] 10 mg Tablet 10 mg PO DAILY RF: 0 quetiapine [Seroquel] 200 mg Tablet 200 mg PO HS RF: 0 cyanocobalamin (vitamin B-12) [Vitamin B-12] 1,000 mcg Tablet 1,000 mcg PO DAILY RF: 0 aspirin 81 mg Tablet,Delayed Release (Dr/Ec) 81 mg PO DAILY RF: 0 losartan-hydrochlorothiazide 100-25 mg Tablet 1 tab PO DAILY RF: 0 methocarbamol 750 mg Tablet 750 mg PO BID RF: 0 temazepam 15 mg Capsule 15 mg PO HS PRN (Reason: Sleep) RF: 0 gabapentin 300 mg Capsule 600 mg PO HS RF: 0 omeprazole 20 mg Capsule,Delayed Release(Dr/Ec) 20 mg PO BID RF: 0 albuterol sulfate [ProAir HFA] 90 mcg/actuation Hfa Aerosol Inhaler 2 puff INHALATION Q4H PRN (Reason: Shortness Of Breath) RF: 0 Spiriva with HandiHaler 18 mcg Capsule, W/Inhalation Device 1 cap INHALATION DAILY RF: 0 Tysabri 300 mg/15 mL Solution 300 mg IV MONTHLY RF: 0 Symbicort 160-4.5 mcg/actuation Hfa Aerosol Inhaler 2 puff INHALATION BID RF: 0 cholecalciferol (vitamin D3) [Vitamin D3] 2,000 unit Capsule 4,000 unit PO DAILY RF: 0 Changed venlafaxine 150 mg Capsule,Extended Release 24hr 150 mg PO QPM Qty: 0 RF: 0 venlafaxine 75 mg Tablet Extended Release 24hr 75 mg PO QPM Qty: 0 RF: 0 Discontinued gabapentin 300 mg Capsule 300 mg PO BID RF: 0 Stand-Alone Forms: [facility] Discharge Orders: Discharge Order (Routine); Ordered 09/08/18 Ordered By: Ayo Khan Admission Data Admit Date/Time: 09/07/18 14:26 Attending Provider: Ayo Khan Admit Provider: Renny Russ Primary Care Provider: Jude De La Rosa Other Providers: Renny Russ Service: Medical Other Interventions: Discharge Summary Assessment (RN) Last Done: 09/08/18 13:57 DC Date/Time DO NOT enter until pt leaves facility: 09/08/18 14:34
== END 2018-09-08 14:34 | disposition home or self-care (01) ==
LOC: ED 11:25 → 4W 11:25 → SUATTDRO 14:26 → 4W 14:49

== ENCOUNTER 2019-01-08 11:44 | Observation (INO) ==
[2019-01-08] MEDS ORDERED: SODIUM CHLORIDE 0.9% 1000ML 1,000 ML IV SCH (12:00)
[2019-01-08 12:08] LABS: Basophils # (auto) 0.02 K/uL (0-0.2); Basophils % (auto) 0.3 %; Eosinophils # (auto) 0.14 K/uL (0-0.5); Hematocrit (blood only) 36.6 % (42-52); Hemoglobin 12.7 g/dL (14.0-18.0); Immature Granulocytes # (auto) 0.03 K/uL (0.00-0.02); Immature Granulocytes % (auto) 0.4 %; Lymphocytes # (auto) 2.28 K/uL (1.2-3.4); Lymphocytes % (auto) 32.9 %; Mean Corpuscular Hgb Conc 34.7 g/dL (32-36); Mean Corpuscular Volume 85.9 fL (80-100); Mean Platelet Volume 10.1 fL (7.4-10.4); Monocytes # (auto) 0.81 K/uL (0.11-0.59); Monocytes % (auto) 11.7 %; Neutrophils # (auto) 3.65 K/uL (1.4-6.5); Neutrophils % (auto) 52.7 %; Nucleated RBC # (auto) 0.07 K/uL (0-0); Nucleated RBC % (auto) 1.1 %; Platelet Count 135 K/uL (130-400); RDW Coefficient of Variation 14.1 % (11.5-14.5); RDW Standard Deviation 43.8 fL (36.4-46.3); Red Blood Count 4.26 M/uL (4.7-6.1); White Blood Count 6.93 K/uL (4.8-10.8)
[2019-01-08 12:21] LABS: INR 1.1 (0.9-1.1); Partial Thromboplastin Time 27.1 Seconds (21.0-31.0); Prothrombin Time 11.3 Seconds (9.0-12.0)
[2019-01-08 12:23] LABS: Alanine Aminotransferase 20 U/L (12-78); Albumin Level 3.3 gm/dl (3.4-5.0); Aspartate Aminotransferase 12 U/L (15-37); BUN Creatinine Ratio 13.7 (10-20); Blood Urea Nitrogen 25 mg/dl (7-18); Calcium 8.4 mg/dl (8.5-10.1); Carbon Dioxide 28 mmol/L (21-32); Chloride 108 mmol/L (98-107); Creatinine Clr Calc Pharmacy 45.2 ml/min; Est GFR (African American) 41.5; Est GFR (Non-African American) 35.8; Glucose 176 mg/dl (70-99); Magnesium 2.2 mg/dl (1.8-2.4); Potassium 3.6 mmol/L (3.5-5.1); Sodium 142 mmol/L (136-145)
[2019-01-08 12:33] LABS: Albumin Globulin Ratio 1.2 (0.9-2); Alkaline Phosphatase 73 U/L (45-117); Bilirubin,Total 0.9 mg/dl (0.2-1); Globulin 2.7 gm/dl (2.5-4.0); Troponin I < 0.015 ng/ml (0-0.045)
--- NOTE | 2019-01-08 12:55 | CT Scan Report ---
CT head/brain wo con CLINICAL HISTORY: 73 years-old Male with syncope. Acute syncope TECHNIQUE: Multiple axial CT images of the head were obtained without contrast. A dose lowering tech nique was utilized adhering to the principles of ALARA. CT DOSE: 614.27 mGy.cm COMPARISON: Head CT 09/07/2018 FINDINGS: No acute intracranial hemorrhage, midline shift, intracranial mass, hydrocephalus, territorial ischem ia or abnormal extra-axial collection. Age-related involutional changes with patchy white matter hypo densities suggestive of chronic microvascular ischemic disease. Multiple remote lacunar infarctions a re again seen about the basal ganglia and payton radiata. Cerebral vascular calcifications noted. The calvarium is intact. The paranasal sinuses, mastoid air cells, and middle ear cavities are clear . IMPRESSION: No acute intracranial abnormality. The above report was generated using voice recognition software. It may contain grammatical, syntax o r spelling errors. Electronically signed by: Adams Haney M.D. 01/08/2019 12:53 PM
--- NOTE | 2019-01-08 12:56 | XRay Report ---
XR chest 1V portable HISTORY: 73 years-old Male syncope acute syncope COMPARISON: Chest radiograph 09/05/2018 TECHNIQUE: Portable AP view of the chest FINDINGS: Cardiac silhouette is enlarged, unchanged. Stable positioning of the right subclavian [id number] c atheter. Unchanged mild blunting of the costophrenic angles suggestion of trace effusions or atelecta sis. Pulmonary vascular congestion with mild chronic interstitial coarsening. Is no pneumothorax or l obar airspace consolidation. Degenerative changes of the shoulders and spine. IMPRESSION: Cardiomegaly with pulmonary vascular congestion. The above report was generated using voice recognition software. It may contain grammatical, syntax o r spelling errors. Electronically signed by: Adams Haney M.D. 01/08/2019 12:55 PM
--- NOTE | 2019-01-08 15:08 | Emergency Department Note ---
Entered by Sue Cheatham acting as a scribe for Blaise Caal MD History of Present Illness General Chief complaint: Syncope Stated complaint: lethargic Time Seen by Provider: 01/08/19 11:51 Source: patient History of Present Illness Provider complaint: Syncope Onset (ago): minute(s) (EQUIPMENT MONITOR PHOTOTYPESETTING) Location: face and upper extremity Pain Consistency: + other (episode ) Quality: + constant Associated symptoms: + syncope and + other (Positive: eyes rolled back to his head, slurred speech, facial droop, right shoulder pain, light headed. Negative: dizziness); no chest pain, no cough, no fever/chills and no shortness of breath The patient is a 73 year old white female w/ PMHx of DVT, AMS, COPD, HTN, who presents to the ED w/ CC of an episode of syncope that happened prior to arrival. The daughter notes the patient had an episode of syncope and when she attempted to wake him up, his eyes rolled up back to his head. She additionally notes the patients speech was slurred and had facial droop. The patient reports he has one recent medication change. He notes he does not have history of strokes or seizures. The patient states he is unsure whether he bit his tongue or not. He reports he felt light headed before passing out, but denies chest pain, shortness of breath, or dizziness. The patient notes he has right shoulder pain. He reports he has history of open heart surgery when he was 12 due to having bad valves. The patient denies cough, fever, or chills. Home Medications Home Medications Medication Instructions Recorded Confirmed Type Tysabri 300 mg IV MONTHLY 09/05/18 01/08/19 History albuterol sulfate 2.5 mg INHALATION .Q4-6H PRN 09/05/18 01/08/19 History aspirin 81 mg PO QAM 09/05/18 01/08/19 History cholecalciferol (vitamin D3) 4,000 unit PO QAM 09/05/18 01/08/19 History [Vitamin D3] cyanocobalamin (vitamin B-12) 1,000 mcg PO QAM 09/05/18 01/08/19 History [Vitamin B-12] gabapentin 300 mg PO BID 09/05/18 01/08/19 History losartan-hydrochlorothiazide 1 tab PO QAM 09/05/18 01/08/19 History methocarbamol 750 mg PO BID PRN 09/05/18 01/08/19 History multivitamin 1 tab PO QAM 09/05/18 01/08/19 History omeprazole 20 mg PO BID 09/05/18 01/08/19 History quetiapine [Seroquel] 200 mg PO HS 09/05/18 01/08/19 History temazepam 15 mg PO HS PRN 09/05/18 01/08/19 History budesonide-formoterol [Symbicort] 1 puff INHALATION UD 01/08/19 01/08/19 History docusate sodium [Stool Softener] 100 mg PO UD PRN 01/08/19 01/08/19 History fluticasone propion-salmeterol 1 inh INHALATION BID 01/08/19 01/08/19 History [Advair Diskus] ipratropium-albuterol [Combivent 1 puff INHALATION QID 01/08/19 01/08/19 History Respimat] sennosides-docusate sodium 0 tab PO UD PRN 01/08/19 01/08/19 History [Senokot-S] venlafaxine 150 mg PO HS 01/08/19 01/08/19 History Allergies Allergy/AdvReac Type Severity Reaction Status Date / Time latex Allergy Unknown unknown Verified 01/08/19 13:03 adhesive AdvReac Intermediate RASH UNDER Verified 01/08/19 13:03 TAPES Past Med/Surg History Medical History DVT prophylaxis Hypertension COPD (chronic obstructive pulmonary disease) Altered mental status (Acute) Medication reaction (Acute) Hypotension (Acute) Eyebrow laceration (Acute) Facial abrasion (Acute) Fall (Acute) Multiple sclerosis (Chronic) Surgical History History of open heart surgery (Resolved) Family History Father Hypertension Social History Preferred Language: Latvian Communication Ability: Effective Enrolled Agent Required: No Beliefs That Will Affect Care: None marital status: Current Living Situation: Alone Feels Safe at Home: Yes Smoking Status: Never smoker Hx Alcohol Use: No Hx Substance Use: No Review of Systems See HPI for pertinent positives & negatives. and A total of 10 systems reviewed and were otherwise negative Physical Exam Vital Signs Vital Signs - 24 hr 01/08/19 11:52 01/08/19 12:14 01/08/19 12:42 Temperature 36.3 C L Temperature Source Oral Sepsis Recent Fever Within 48 Hours No Sepsis Action Taken by Nursing No Action Required Pulse Rate 69 69 Pulse Rate [Apical] 69 Pulse Rate from SpO2 Sensor 65 66 Pulse Rhythm Regular Pulse Strength Normal Respiratory Rate 18 18 23 Respiratory Effort / Characteristics Non-Labored Respiratory Depth Normal Blood Pressure 97/59 L 104/54 L Blood Pressure Mean 71 70 Blood Pressure Position Sitting Pulse Oximetry 95 94 93 Oxygen Delivery Method Room Air Room Air 01/08/19 13:00 01/08/19 13:31 01/08/19 14:00 Temperature Temperature Source Sepsis Recent Fever Within 48 Hours Sepsis Action Taken by Nursing Pulse Rate 66 80 70 Pulse Rate [Apical] Pulse Rate from SpO2 Sensor 59 L 52 L Pulse Rhythm Pulse Strength Respiratory Rate 15 25 H 19 Respiratory Effort / Characteristics Respiratory Depth Blood Pressure 113/64 101/66 119/61 Blood Pressure Mean 80 77 80 Blood Pressure Position Pulse Oximetry 93 97 Oxygen Delivery Method 01/08/19 14:30 Temperature Temperature Source Sepsis Recent Fever Within 48 Hours Sepsis Action Taken by Nursing Pulse Rate 70 Pulse Rate [Apical] Pulse Rate from SpO2 Sensor 67 Pulse Rhythm Pulse Strength Respiratory Rate 16 Respiratory Effort / Characteristics Respiratory Depth Blood Pressure 125/66 Blood Pressure Mean 85 Blood Pressure Position Pulse Oximetry 97 Oxygen Delivery Method GENERAL: Well nourished, NAD, non-toxic. EYE EXAM: Normal conjunctiva. PERRL, no anisocoria and EOM's grossly intact w/o pain. OROPHARYNX: Dry mucous membranes. Grossly normal dentition. NECK: Supple, no nuchal rigidity, no adenopathy, non-tender. No signs of men ingismus. LUNGS: Clear to auscultation. Normal chest wall mechanics. HEART: NSR, no MRG. ABDOMEN: Abdomen soft, non-tender, normo-active bowel sounds, no masses, no rebound or guarding. BACK: No CVA TTP. CHEST: Port in right chest. SKIN: No rashes and no bruising. UPPER EXTREMITIES: Upper extremities are grossly normal. LOWER EXTREMITIES: No pitting edema. No calf pain. NEURO EXAM: A&O x3, cranial nerves II-XII grossly intact, normal speech, 5/5 strength throughout, no sensory deficits, no pronator drift, moves all 4 extremities on command w/o issue. Questionably slurred speech. Decreased right upper extremities strength secondary to pain. Course 1153: The patient was evaluated in room B4B. A complete history and physical exam was performed. 1333: Upon reevaluation, the patient is resting comfortably. I discussed laboratory and radiographic results with him. The patient verbalized agreement of the treatment plan. The patient will be evaluated for further management and care. 1407: I discussed the patient's case with Dr. Jackson, Neurology. He will evaluate the patient for further management. 1415: I discussed the patient's case with Dr. Bartlett, [facility] Hospitalist. She will evaluate the patient for further management. Consultations Consultation #1: I discussed the patient's case with Dr. Jackson, Neurology. He will evaluate the patient for further management. Time: 14:07 Consultation #2: I discussed the patient's case with Dr. Bartlett, [facility] Hospitalist. She will evaluate the patient for further management. Time: 14:15 Administered Medications Discontinued Medications Sodium Chloride (Nss 1000ml) 1,000 mls @ 999 mls/hr IV .Q1H1M MUKUL Stop: 01/08/19 13:00 Last Infusion: 01/08/19 14:33 Dose: 0 mls/hr Documented by: [id number] Admin: 01/08/19 12:16 Dose: 999 mls/hr Documented by: [id number] Medical Decision Making Differential Diagnosis Differential diagnosis: Etiologies such as vasovagal event, infection, anemia, hypoglycemia, hypovolemi a, electrolyte abnormalities, dysrhythmias, cardiac ischemia, cardiac tamponade, valvular heart disease, structural heart disease, seizure, vascular stenosis/dissection, pulmonary embolism, intracerebral event, toxicological process, neurologic event, as well as others were entertained. Medical Records Attestation: I reviewed the patient's medical records. Home Medications Current Medication List: was personally reviewed by me Laboratory Data Attestation: I reviewed the patient's lab results. Result diagrams: 01/08/19 11:55 01/08/19 11:55 Lab Results 01/08/19 01/08/19 01/08/19 Range/Units 11:55 11:55 11:55 WBC 6.93 (4.8-10.8) K/uL RBC 4.26 L (4.7-6.1) M/uL Hgb 12.7 L (14.0-18.0) g/dL Hct 36.6 L (42-52) % MCV 85.9 (80-100) fL MCH 29.8 (25-34) pg MCHC 34.7 (32-36) g/dL RDW Std Deviation 43.8 (36.4-46.3) fL RDW Coeff of Lilia 14.1 (11.5-14.5) % Plt Count 135 (130-400) K/uL MPV 10.1 (7.4-10.4) fL Immature Gran % (Auto) 0.4 % Neut % (Auto) 52.7 % Lymph % (Auto) 32.9 % [place] % (Auto) 11.7 % Eos % (Auto) 2.0 % Baso % (Auto) 0.3 % Immature Gran # (Auto) 0.03 H (0.00-0.02) K/uL Neut # (Auto) 3.65 (1.4-6.5) K/uL Lymph # (Auto) 2.28 (1.2-3.4) K/uL [place] # (Auto) 0.81 H (0.11-0.59) K/uL Eos # (Auto) 0.14 (0-0.5) K/uL Baso # (Auto) 0.02 (0-0.2) K/uL Absolute Nucleated RBC 0.07 H (0-0) K/uL Nucleated RBC % (auto) 1.1 % PT 11.3 (9.0-12.0) Seconds INR 1.1 (0.9-1.1) APTT 27.1 (21.0-31.0) Seconds PTT Ratio 1.0 Sodium 142 (136-145) mmol/L Potassium 3.6 (3.5-5.1) mmol/L Chloride 108 H (98-107) mmol/L Carbon Dioxide 28 (21-32) mmol/L Anion Gap 6.0 (3-11) BUN 25 H (7-18) mg/dl Creatinine 1.84 H (0.6-1.4) mg/dl Est Cr Clr Drug Dosing 45.2 ml/min Est GFR ( Amer) 41.5 Est GFR (Non-Af Amer) 35.8 BUN/Creatinine Ratio 13.7 (10-20) Glucose 176 H (70-99) mg/dl Calcium 8.4 L (8.5-10.1) mg/dl Magnesium 2.2 (1.8-2.4) mg/dl Total Bilirubin 0.9 (0.2-1) mg/dl AST 12 L (15-37) U/L ALT 20 (12-78) U/L Alkaline Phosphatase 73 (45-117) U/L Troponin I < 0.015 (0-0.045) ng/ml Total Protein 6.0 L (6.4-8.2) gm/dl Albumin 3.3 L (3.4-5.0) gm/dl Globulin 2.7 (2.5-4.0) gm/dl Albumin/Globulin Ratio 1.2 (0.9-2) TSH 0.987 (0.300-4.500) uIu/ml Imaging Data Radiologist's Impression: Radiology results as stated below per my review and the radiologist's interpretation: CT head/brain wo con CLINICAL HISTORY: 73 years-old Male with syncope. Acute syncope TECHNIQUE: Multiple axial CT images of the head were obtained without contrast. A dose lowering technique was utilized adhering to the principles of ALARA. CT DOSE: 614.27 mGy.cm COMPARISON: Head CT 09/07/2018 FINDINGS: No acute intracranial hemorrhage, midline shift, intracranial mass, hydrocephalus, territorial ischemia or abnormal extra-axial collection. Age- related involutional changes with patchy white matter hypodensities suggestive of chronic microvascular ischemic disease. Multiple remote lacunar infarctions are again seen about the basal ganglia and payton radiata. Cerebral vascular calcifications noted. The calvarium is intact. The paranasal sinuses, mastoid air cells, and middle ear cavities are clear. IMPRESSION: No acute intracranial abnormality. The above report was generated using voice recognition software. It may contain grammatical, syntax or spelling errors. Electronically signed by: Adams Haney M.D. 01/08/2019 12:53 PM XR chest 1V portable HISTORY: 73 years-old Male syncope acute syncope COMPARISON: Chest radiograph 09/05/2018 TECHNIQUE: Portable AP view of the chest FINDINGS: Cardiac silhouette is enlarged, unchanged. Stable positioning of the right subclavian [id number] catheter. Unchanged mild blunting of the costophrenic angles suggestion of trace effusions or atelectasis. Pulmonary vascular congestion with mild chronic interstitial coarsening. Is no pneumothorax or lobar airspace consolidation. Degenerative changes of the shoulders and spine. IMPRESSION: Cardiomegaly with pulmonary vascular congestion. The above report was generated using voice recognition software. It may contain grammatical, syntax or spelling errors. Electronically signed by: Adams Haney M.D. 01/08/2019 12:55 PM ECG Data Attestation: I personally reviewed and interpreted this ECG as follows: Indication: syncope Rate (beats per minute): 69 Rhythm: sinus rhythm Findings: + other (Normal intervals and axis ); no acute ischemic change Blood Pressure Blood Pressure Findings: Normal blood pressure Blood Pressure Disposition: did not require urgent referral MDM Narrative The patient is a 73 year old white female w/ PMHx of DVT, AMS, COPD, HTN, who presents to the ED w/ CC of an episode of syncope that happened prior to arrival. Patient was seen and evaluated the bedside. The patient's daughter who is the power of regulatory attorney is at bedside. The patient reportedly was found down today after syncopal event. Patient did state that he did get lightheaded. The patient does have a known history of MS and to see Dr. Jackson. Patient denies any acute pains. The patient does have some chronic right-sided shoulder pain but this is unchanged. The patient did have blood work completed along with CT of the head and EKG. Patient was also given some IV fluids as well as by my patient states that this does not necessarily feel consistent with an MS flare. The patient does not have any visual symptoms. The patient's blood work does show some mild COLEEN likely secondary to dehydration. I did briefly speak with the neurologist who said that he would want to rule out infectious or metabolic cause including dehydration and UTI. Urinalysis is still pending. Given the patient's age and risk factors I discussed the case with the hospitalist who was agreeable for an observation on telemetry given the syncope. Patient was admitted to the medicine service. Impression & Plan Syncope, Dehydration, Weakness, History of multiple sclerosis Discharge Plan Visit Data Chief Complaint: Syncope Stated Complaint: lethargic ED Provider: Blaise Caal Discharge Problem: Syncope, Dehydration, Weakness, History of multiple sclerosis Patient Disposition: Being Evaluated by Hospitalist Forms Stand Alone Forms: [facility] Prescriptions Prescriptions: No Action multivitamin Tablet 1 tab PO QAM RF: 0 albuterol sulfate 2.5 mg /3 mL (0.083 %) Solution For Nebulization 2.5 mg INHALATION .Q4-6H PRN (Reason: Shortness Of Breath) RF: 0 quetiapine [Seroquel] 200 mg Tablet 200 mg PO HS RF: 0 cyanocobalamin (vitamin B-12) [Vitamin B-12] 1,000 mcg Tablet 1,000 mcg PO QAM RF: 0 aspirin 81 mg Tablet,Delayed Release (Dr/Ec) 81 mg PO QAM RF: 0 losartan-hydrochlorothiazide 100-25 mg Tablet 1 tab PO QAM RF: 0 methocarbamol 750 mg Tablet 750 mg PO BID PRN (Reason: Muscle Spasms/Pain) RF: 0 temazepam 15 mg Capsule 15 mg PO HS PRN (Reason: Sleep) RF: 0 gabapentin 300 mg Capsule 300 mg PO BID RF: 0 omeprazole 20 mg Capsule,Delayed Release(Dr/Ec) 20 mg PO BID RF: 0 Tysabri 300 mg/15 mL Solution 300 mg IV MONTHLY RF: 0 cholecalciferol (vitamin D3) [Vitamin D3] 2,000 unit Capsule 4,000 unit PO QAM RF: 0 sennosides-docusate sodium [Senokot-S] 8.6-50 mg Tablet PO UD PRN (Reason: Constipation) RF: 0 fluticasone propion-salmeterol [Advair Diskus] 500-50 mcg/dose blister with device 1 inh inhalation BID RF: 0 docusate sodium [Stool Softener] 100 mg Capsule 100 mg PO UD PRN (Reason: constipation) RF: 0 Combivent Respimat 20-100 mcg/actuation mist 1 puff inhalation QID RF: 0 venlafaxine 150 mg capsule,extended release 24hr 150 mg PO HS RF: 0 Symbicort 160-4.5 mcg/actuation HFA aerosol inhaler 1 puff inhalation UD RF: 0 Referrals Referrals: Jude De La Rosa MD [Primary Care Provider] - Discharge Problem: Syncope Qualifiers: Syncope type: unspecified Qualified Code(s): R55 - Syncope and collapse The scribe's documentation has been prepared under my direction and personally reviewed by me in its entirety. I confirm that the note above accurately reflects all work, treatment, procedures, and medical decision making performed by me.
[2019-01-08] MEDS ORDERED: ONDANSETRON INJ 2 MG/ML 2 ML VIAL IV PRN (16:21)
[2019-01-08] MEDS ORDERED: POLYETHYLENE (MIRALAX) 17 GM PACK PO PRN (16:21)
[2019-01-08] MEDS ORDERED: ACETAMINOPHEN 325 MG TAB PO PRN (16:21)
[2019-01-08] MEDS ORDERED: DOCUSATE SODIUM/SENNA 50/8.6MG TAB PO PRN (17:27)
[2019-01-08] MEDS ORDERED: NATALIZUMAB 300 MG IV SCH (17:27)
[2019-01-08] MEDS ORDERED: DOCUSATE SODIUM 100 MG CAP PO PRN (17:27)
[2019-01-08] MEDS ORDERED: ALBUTEROL 0.083% NEBU SOLN 3 ML VIAL INH PRN (17:27)
[2019-01-08] MEDS: SODIUM CHLORIDE 0.9% 1000ML 1,000 ML IV SCH (17:57)
[2019-01-08] MEDS: SYMBICORT~ORDER AWAITING ACTION SCH ×2 (19:38→23:21)
[2019-01-08] MEDS: IPRATROPIUM BROMIDE/ALBUTEROL respimat INH INH SCH ×2 (20:05→20:12)
[2019-01-08] MEDS: FLUTICASONE/SALMETEROL (ADVAIR) 500/50 INH 14 PUFF INH SCH (20:06)
[2019-01-08] MEDS: QUETIAPINE FUMARATE 200 MG TAB PO SCH (20:07)
[2019-01-08] MEDS: VENLAFAXINE HCL XR 150 MG CAPXR PO SCH (20:07)
[2019-01-08] MEDS: GABAPENTIN 300 MG CAP PO SCH (20:07)
[2019-01-08] MEDS: HEPARIN SOD 5,000 UNIT/0.5 ML VIAL SQ SCH (20:08)
[2019-01-08 20:15] LABS: Appearance Urine Cloudy (Clear); Bacteria Urine Automated Negative (Negative); Bilirubin Urine Negative (Negative); Blood Urine Negative (Negative); Color Urine Yellow; Glucose Urine UA Negative (Negative); Ketones Urine Negative (Negative); Leukocyte Esterase Urine Negative (Negative); Nitrite Urine Negative (Negative); Protein Urine Negative (Negative); RBC Urine Automated 0-4 /hpf (0-4); Specific Gravity Urine 1.018 (1.000-1.030); Urobilinogen Urine Negative (Negative)
--- NOTE | 2019-01-08 23:50 | History & Physical Report ---
Date of Service January 08, 2019 Assessment & Plan (1) Syncope: Admit to medicine on telemetry for observation -Vital signs every 4 hours -Neurochecks every 4 hours for 24 hours. -Start IV fluids at 100 cc/h normal saline -ER physician discussed the case with Dr. Riley neurology and he will see the patient in a.m. -Daily labs CBC CMP and replenish electrolytes as needed -Echocardiogram in a.m. and if the results of normal consult cardiology. -BNP in a.m. -DVT prophylaxis heparin 5000 units every 8 -Full code Present on Admission?: Yes (2) Dehydration: As the above, monitor electrolytes and hydration. Present on Admission?: Yes (3) History of multiple sclerosis: Possible flareup. Will discuss with Dr. Jackson neurology tomorrow a.m. Continue Tysabri monthly. Present on Admission?: Yes (4) Hypertension: Patient's blood pressure was at the lower side today. Hold antihypertensive medication if blood pressure less than 120/80. Present on Admission?: Yes (5) COPD (chronic obstructive pulmonary disease): Stable, continue Advair 1 puff inhalation twice daily and ipratropium albuterol 1 puff inhalation 4 times daily Present on Admission?: Yes (6) Acute kidney injury: Creatinine 1.84 and GFR 45.2. Patient moderately dehydrated. -Start gentle IV fluids hydration. -Monitor creatinine and GFR daily -Avoid nephrotoxic agents - Present on Admission?: Yes History of Present Illness Chief Complaint: Syncope Primary Care Provider: Jude De La Rosa MD 73 years old male with past medical history of multiple sclerosis, COPD, hypertension frequent falls was brought by his daughter to the emergency room with a complaint that the patient had a syncopal episode prior to arrival to the hospital. Patient's daughter states that she lives next to her father's apartment and that he made a phone call in the morning stating that he passed out for 30 minutes after breakfast and it occurred approximately at 11 AM. Daughter said that she was not present at the scene when that happened and there was no weakness. Daughter reports that after that episode her father appears weak and not himself. During the interview and examination patient is alert and oriented and able to answer the questions. Patient states that he laid on the floor for approximately 30 minutes but he did not hit his head or injured any part of his body. He just felt very weak. Patient has complete memory of what happened before and after this event. Patient denies headache fever chills chest pain shortness of breath abdominal pain frequency urgency hemoptysis nausea vomiting or hematuria. Patient also complains of right shoulder pain and that was present after he woke up that event. EKG is reviewed and showed normal sinus rhythm with premature atrial complexes and nonspecific T wave abnormalities with prolonged QT interval no ST segment elevation or depression noted T wave abnormality mostly evident in the inferior leads. Labs: White blood cell count 6.93 hemoglobin 12.7 hematocrit 36.6 platelets 135. Chemistry sodium 142 potassium 3.6, chloride 108, BUN 25 creatinine 1.84 GFR 45.2, AST 12 ALT 20 total bilirubin 0.9 magnesium 2.2. POC glucose 143. CT had no intracranial abnormalities. Chest x-ray cardiomegaly with pulmonary vascular congestion. ER physician contacted Dr. Jackson neurology and the plan is to evaluate patient for the further management in the morning. Decision was made to admit patient to medicine on telemetry for observation. Allergies Allergy/AdvReac Type Severity Reaction Status Date / Time latex Allergy Unknown unknown Verified 01/08/19 13:03 adhesive AdvReac Intermediate RASH UNDER Verified 01/08/19 13:03 TAPES Home Medications Home Medications Medication Instructions Recorded Confirmed Type Tysabri 300 mg IV MONTHLY 09/05/18 01/08/19 History albuterol sulfate 2.5 mg INHALATION .Q4-6H PRN 09/05/18 01/08/19 History aspirin 81 mg PO QAM 09/05/18 01/08/19 History cholecalciferol (vitamin D3) 4,000 unit PO QAM 09/05/18 01/08/19 History [Vitamin D3] cyanocobalamin (vitamin B-12) 1,000 mcg PO QAM 09/05/18 01/08/19 History [Vitamin B-12] gabapentin 300 mg PO BID 09/05/18 01/08/19 History losartan-hydrochlorothiazide 1 tab PO QAM 09/05/18 01/08/19 History methocarbamol 750 mg PO BID PRN 09/05/18 01/08/19 History multivitamin 1 tab PO QAM 09/05/18 01/08/19 History omeprazole 20 mg PO BID 09/05/18 01/08/19 History quetiapine [Seroquel] 200 mg PO HS 09/05/18 01/08/19 History temazepam 15 mg PO HS PRN 09/05/18 01/08/19 History budesonide-formoterol [Symbicort] 1 puff INHALATION UD 01/08/19 01/08/19 History docusate sodium [Stool Softener] 100 mg PO UD PRN 01/08/19 01/08/19 History fluticasone propion-salmeterol 1 inh INHALATION BID 01/08/19 01/08/19 History [Advair Diskus] ipratropium-albuterol [Combivent 1 puff INHALATION QID 01/08/19 01/08/19 History Respimat] sennosides-docusate sodium 0 tab PO UD PRN 01/08/19 01/08/19 History [Senokot-S] venlafaxine 150 mg PO HS 01/08/19 01/08/19 History Past Med/Surg History Medical History DVT prophylaxis Hypertension COPD (chronic obstructive pulmonary disease) Altered mental status (Acute) Medication reaction (Acute) Hypotension (Acute) Eyebrow laceration (Acute) Facial abrasion (Acute) Fall (Acute) Multiple sclerosis (Chronic) Surgical History History of open heart surgery (Resolved) Family History Father Hypertension Social History Preferred Language: [place] Leonean Communication Ability: Effective Cable Tender Required: No Beliefs That Will Affect Care: None marital status: Current Living Situation: Alone Other Information That Helps Us Care for You: No Feels Safe at Home: Yes Safety Concerns: Feels Safe At This Time Smoking Status: Former smoker Do You Dip or Chew Tobacco: No ; Smoking End Date: > 25 years ago in early ; Second Hand Exposure: No ; Hx Alcohol Use: No Hx Substance Use: No Review of Systems Review of Systems: All systems reviewed & are unremarkable except as noted in HPI & below Neurologic: + syncope Per daughter patient is more more withdrawal while during the exam he is alert oriented answering to questions but little bit slow in his motions and movements which could be his baseline and could be related to his multiple sclerosis. Daughter also emphasized that patient has flareups of multiple sclerosis and they are more common in the summertime. Patient has a port located in the left chest for administration of Tysabri every month. Port appears clean dry and intact Physical Exam Constitutional: WD/WN, vitals as above well developed, well nourished and + obese Eyes: PERRL, conjunctivae normal, anicteric sclerae ENMT: external ear and nose normal, oropharynx normal Neck: trachea midline, no thyromegaly Respiratory: normal respiratory effort, lungs clear to auscultation Cardiovascular: Heart Sounds: normal S1, normal S2 and + murmur Palpation: + palpable S3 Chest (Breasts): normal inspection/palpation of breasts Gastrointestinal (Abdomen): normal bowel sounds, soft, nontender, no hepatosplenomegaly Musculoskeletal: no cyanosis or clubbing, extremities motor strength 5/5 Skin: no rashes, warm and dry Neurologic: PERRL, EOMI, accommodation nl, no face palsy, no dysarthria awake Cranial Nerves: normal gag reflex Gait: + shuffling gait Coordination: + abnormal [id number] test Psychiatric: A+Ox3, euthymic affect Genitourinary: no testicular masses, no penis abnormality Lymphatic: no cervical or axillary lymphadenopathy Results & Data Vital Signs (Past 12 Hours) Vital Signs Temp Pulse Pulse Resp BP BP Pulse Ox 01/08/19 19:29 36.4 C L 62 16 120/62 92 01/08/19 17:27 61 01/08/19 17:24 36.5 C 62 22 133/77 97 01/08/19 16:30 61 19 114/78 94 01/08/19 16:00 63 17 119/62 95 01/08/19 15:30 60 17 111/59 L 94 01/08/19 15:19 63 18 96 01/08/19 15:18 66 16 100/55 L 96 01/08/19 15:00 68 20 101/51 L 94 01/08/19 14:30 70 16 125/66 97 01/08/19 14:00 70 19 119/61 97 01/08/19 13:31 80 25 H 101/66 01/08/19 13:00 66 15 113/64 93 01/08/19 12:42 69 23 104/54 L 93 01/08/19 12:14 69 18 94 01/08/19 11:52 36.3 C L 69 18 97/59 L 95 Code Status & VTE Plan Code Status Full code VTE Prophylaxis Plan VTE Prophylaxis will be ordered: Yes PG Care Time/CCT Total # of Minutes Spent Total Time Spent with Patient: Total time spent is greater than 50% in coordination of care (as documented) at patient's floor/unit and/or counseling patient: (1) Syncope Syncope type: unspecified Qualified Code(s): R55 - Syncope and collapse
[2019-01-09] MEDS: HEPARIN SOD 5,000 UNIT/0.5 ML VIAL SQ SCH ×2 (05:36→16:14)
[2019-01-09] MEDS: SODIUM CHLORIDE 0.9% 1000ML 1,000 ML IV SCH ×2 (05:36→14:10)
[2019-01-09 06:22] LABS: Basophils # (auto) 0.04 K/uL (0-0.2); Basophils % (auto) 0.4 %; Eosinophils # (auto) 0.37 K/uL (0-0.5); Eosinophils % (auto) 3.9 %; Hematocrit (blood only) 37.8 % (42-52); Hemoglobin 13.2 g/dL (14.0-18.0); Immature Granulocytes # (auto) 0.05 K/uL (0.00-0.02); Immature Granulocytes % (auto) 0.5 %; Lymphocytes # (auto) 4.51 K/uL (1.2-3.4); Lymphocytes % (auto) 47.7 %; Mean Corpuscular Hgb Conc 34.9 g/dL (32-36); Mean Corpuscular Volume 87.5 fL (80-100); Mean Platelet Volume 10.3 fL (7.4-10.4); Monocytes # (auto) 0.89 K/uL (0.11-0.59); Monocytes % (auto) 9.4 %; Neutrophils # (auto) 3.59 K/uL (1.4-6.5); Neutrophils % (auto) 38.1 %; Nucleated RBC # (auto) 0.02 K/uL (0-0); Nucleated RBC % (auto) 0.2 %; Platelet Count 149 K/uL (130-400); RDW Standard Deviation 45.2 fL (36.4-46.3); Red Blood Count 4.32 M/uL (4.7-6.1); White Blood Count 9.45 K/uL (4.8-10.8)
[2019-01-09 06:55] LABS: Albumin Globulin Ratio 1.2 (0.9-2); Albumin Level 3.3 gm/dl (3.4-5.0); BUN Creatinine Ratio 17.6 (10-20); Bilirubin,Total 0.8 mg/dl (0.2-1); Calcium 8.5 mg/dl (8.5-10.1); Creatinine Clr Calc Pharmacy 74.3 ml/min; Est GFR (African American) 76.5; Globulin 2.8 gm/dl (2.5-4.0); Potassium 3.5 mmol/L (3.5-5.1); Total Protein 6.1 gm/dl (6.4-8.2)
[2019-01-09] MEDS ORDERED: LOSARTAN/HCTZ 50/12.5MG TAB PO SCH (09:00)
[2019-01-09] MEDS: FLUTICASONE/SALMETEROL (ADVAIR) 500/50 INH 14 PUFF INH SCH ×2 (09:46→19:37)
[2019-01-09] MEDS: IPRATROPIUM BROMIDE/ALBUTEROL respimat INH INH SCH ×4 (09:46→19:36)
[2019-01-09] MEDS: CHOLECALCIFEROL 1,000 UNITS TAB PO SCH (09:47)
[2019-01-09] MEDS: ASPIRIN 81 MG ECTAB PO SCH (09:47)
[2019-01-09] MEDS: MULTIVITAMIN TAB PO SCH (09:47)
[2019-01-09] MEDS: CYANOCOBALAMIN 500 MCG TABLET (VITAMIN B-12) PO SCH (09:47)
[2019-01-09] MEDS: GABAPENTIN 300 MG CAP PO SCH ×2 (09:47→19:38)
--- NOTE | 2019-01-09 12:06 | Neurology Consultation ---
Date of Consultation January 09, 2019 Assessment & Plan (1) Syncope: (2) Dehydration: (3) Hypotension: (4) History of multiple sclerosis: (5) Depression with anxiety: (6) Shoulder pain, right: This patient was admitted with a syncopal episodes associated with dehydration and significant hypotension. This has happened to him before. I do not believe this is a seizure disorder. His symptoms are improved and he feels back to baseline. He is not dehydrated by lab testing this morning and his blood pressure is improved. On examination he has no focal findings (except for giveaway weakness secondary to pain in his right shoulder), meningeal signs, or encephalopathy. Patient has a history of multiple sclerosis since the 1980s. He is very stable on Tysabri and there is no evidence of a flare-up or deterioration in multiple sclerosis today. He has had an MRI in September of 2018 which was stable. He has severe depression with anxiety on significant medication. Unfortunately, the higher doses tend to make him fatigued but lowering the doses creates worse mood. He has had chronic right shoulder pain worse over the last few weeks and were still since yesterday. He has decreased strength referable to the shoulder and I suspect a rotator injury. Recommendations: 1. X-ray right shoulder. He will likely need an orthopedic evaluation as an outpatient. 2. Keep blood pressure with a mean arterial pressure of approximately 95-100. We need to avoid over-correction. 3. Continue to encourage p.o. fluids and hydration. 4. Continue monthly Tysabri, as usual. 5. Continue current anti depressants, Seroquel and venlafaxine at their usual doses. He should also continue gabapentin at his usual doses. 6. I see no reason for additional neurologic testing or treatment at this time. I would be happy to follow as an outpatient. Overall, I spent a total of 75 minutes with this case including review of records, review of MRI films from September 20, direct evaluation the patient bedside, and discussing the case with patient at bedside, nursing staff at bedside, and Dr. Russ, including differential diagnosis and treatment options. History of Present Illness Reason for Consultation: The patient is a 73-year-old, who I was asked to see the request of Dr. Byrd, for neurologic consultation regarding recent syncope and history of multiple sclerosis. Requesting Physician: Dr. Byrd Attending Physician: Renny Russ MD History of Present Illness This patient has had problems with multiple sclerosis since 1985 when he had the onset of numbness and weakness in his limbs. He had been on Avonex up until the early but stopped due to side effects. He was then put on Copaxone up until 2005. His MS was progressing with lesions and clinical issues and he was switched in 2005 to Rebif. Review if gave him side effects and this was discontinued early in 2006. Patient then initiated Tysabri in September of 2006 and has been on this monthly ever since. This is despite having and COLLEEN positive viral antibody titer. Over the years, he has understood that his risk of PML is great given his high titer and his use of Tysabri. Interestingly, however, when you been on Tysabri for his many years as he has been, the risk of PML actually goes down. He has had multiple MRIs over the years, most recently in September of 2018. These MRI showed stable lesions and no increase. Clinically he has not had any significant flare-ups or deterioration since he has been on Tysabri particularly over the last 5 years. He last saw Neurology in clinic in October of 2018 and he was stable. Chronically he has fatigue, restlessness, dry mouth, and mood issues. Unfortunately, the patient has had severe depression and has been on a number of agents. Most recently he has been on venlafaxine and Seroquel. Higher doses of venlafaxine gave him side effects and he is currently taking 150 milligrams each evening and 200 milligrams of Seroquel each evening. Although his mood is variable with good and bad days he has been fairly stable on this regimen. The patient has had chronic low back pain helped with gabapentin. He has had right shoulder pain for months, increasing over the last 3 or 4 weeks. He has a history of hypertension on losartan/hydrochlorothiazide. This has been fairly well controlled over time. Patient woke up at 0900 on the morning of January 08 feeling fairly well. He ate breakfast and was sitting doing a crossword and the next thing he knew he was waking up on the floor. He was not in pain and he did not hit his head. He was not incontinent of urine or had bit his tongue. He used to cell phone to call his daughter helped him get up. He did have some increased right shoulder pain. He was described as having some slurred speech, having a facial droop (uncertain side) and was out of it. Patient remembers what happened prior and after to his passing out and thinks he was just tired as opposed to confused. He arrived to the emergency room January 08 at 1152, with a temperature of 36.3, pulse 69 regular, respiratory rate 18, blood pressure 97/59, and O2 saturation 95 percent. He was he has some right upper extremity pain with weakness at the shoulder due to pain and some possible slurred speech. Otherwise his exam was unremarkable. CBC showed a normal white count with a hemoglobin of 12.7 hematocrit of 36.6. Chem profile revealed a glucose of 176, BUN 25, and creatinine of 1.84. Urinalysis and TSH were unremarkable. Hemoglobin A1c was 6.4. Echocardiogram revealed some [id number] mitral regurgitation and mild aortic regurgitation. This morning, CBC showed a hemoglobin of 13.2 and hematocrit 37.8. BUN was 20 and creatinine 1.1. He feels much better this morning except for his right shoulder pain. His left hand had some swelling due to an IV site from yesterday. He denies headaches or confusion, new weakness or numbness in the arms or legs speech or vision problems. He does have significant fatigue. 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 He has not had any heart disease since. Allergies Allergy/AdvReac Type Severity Reaction Status Date / Time latex Allergy Unknown unknown Verified 01/08/19 13:03 adhesive AdvReac Intermediate RASH UNDER Verified 01/08/19 13:03 TAPES Home Medications Home Medications Medication Instructions Recorded Confirmed Type Tysabri 300 mg IV MONTHLY 09/05/18 01/08/19 History albuterol sulfate 2.5 mg INHALATION .Q4-6H PRN 09/05/18 01/08/19 History aspirin 81 mg PO QAM 09/05/18 01/08/19 History cholecalciferol (vitamin D3) 4,000 unit PO QAM 09/05/18 01/08/19 History [Vitamin D3] cyanocobalamin (vitamin B-12) 1,000 mcg PO QAM 09/05/18 01/08/19 History [Vitamin B-12] gabapentin 300 mg PO BID 09/05/18 01/08/19 History losartan-hydrochlorothiazide 1 tab PO QAM 09/05/18 01/08/19 History methocarbamol 750 mg PO BID PRN 09/05/18 01/08/19 History multivitamin 1 tab PO QAM 09/05/18 01/08/19 History omeprazole 20 mg PO BID 09/05/18 01/08/19 History quetiapine [Seroquel] 200 mg PO HS 09/05/18 01/08/19 History temazepam 15 mg PO HS PRN 09/05/18 01/08/19 History docusate sodium [Stool Softener] 100 mg PO UD PRN 01/08/19 01/08/19 History fluticasone propion-salmeterol 1 inh INHALATION BID 01/08/19 01/08/19 History [Advair Diskus] ipratropium-albuterol [Combivent 1 puff INHALATION QID 01/08/19 01/08/19 History Respimat] sennosides-docusate sodium 0 tab PO UD PRN 01/08/19 01/08/19 History [Senokot-S] venlafaxine 150 mg PO HS 01/08/19 01/08/19 History Patient History Medical History Syncope (Acute) Dehydration (Acute) History of multiple sclerosis (Acute) DVT prophylaxis Hypertension COPD (chronic obstructive pulmonary disease) Altered mental status (Acute) Medication reaction (Acute) Hypotension (Acute) Eyebrow laceration (Acute) Facial abrasion (Acute) Fall (Acute) Multiple sclerosis (Chronic) Surgical History S/P cataract surgery S/P tonsillectomy History of open heart surgery (Resolved) Family History Father , age 78 of cancer (uncertain type) Hypertension Cancer Mother , age 81 of cancer (uncertain type) Cancer Diabetes Social History Preferred Language: [place] Communication Ability: Effective Plastic Mixer Required: No Beliefs That Will Affect Care: None marital status: Current Living Situation: Alone current occupational status: retired and disabled 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 Other Information That Helps Us Care for You: No Feels Safe at Home: Yes Safety Concerns: Feels Safe At This Time Smoking Status: Former smoker Do You Dip or Chew Tobacco: No ; Smoking End Date: > 25 years ago in early ; Number of Years Since Quit: 30 ; Second Hand Exposure: No ; Hx Alcohol Use: No Hx Substance Use: No Review of Systems Constitutional: + fatigue and + weakness; no fever Eyes: no diplopia, no eye pain and no worsening vision Ear, Nose, Mouth, Throat: no ear pain, no tinnitus, no hearing loss, no dizziness, no snoring, no hoarseness and no dysphagia Respiratory: no cough and no dyspnea Cardiovascular: no chest pain, no palpitations and no lightheadedness Gastrointestinal: no abdominal pain, no nausea and no vomiting Genitourinary: no dysuria and no urinary incontinence Musculoskeletal: + joint pain (Right shoulder pain); no back pain, no neck pain, no radicular pain and no myalgia Integumentary: no rash and no lesions Neurologic: + localized weakness (Right shoulder); no gait abnormality, no generalized weakness, no tingling, no numbness, no tremor(s), no abnormal movements, no headache(s), no abnormal speech, no confusion and no memory loss Psychiatric: + depression and + anxiety; no irritability, no difficulty concentrating, no confusion and no hallucinations Endocrine: + fatigue; no flushing Hematologic / Lymphatic: no easy bleeding and no easy bruising Allergy / Immunological: no urticaria and no problem reported Physical Exam Physical Exam: The patient is right-handed. The patient is awake, alert, and attentive. Speech is normal without any aphasia or dysarthria. he can name objects, repeat phrases, and has normal spontaneous speech. Mentation and thought processes are intact, with orientation to person, place and time, and normal fund of knowledge. Attention and concentration are normal. Mood and affect are reasonable and appropriate. General appearance and grooming are normal. Short and long-term memory are intact. The discs are sharp with positive venous pulsations bilaterally. There are no exudates, hemorrhages, or blood vessel changes seen. Pupils are 3 mm bilaterally and reactive to light. Extraocular eye muscles are intact without nystagmus. Visual acuity and visual glover seem normal grossly to confrontation. There are no deficits to sensation in the face in all 3 distributions of the fifth cranial nerve bilaterally. Corneal reflexes are positive bilaterally. Facial strength and symmetry was normal bilaterally. Hearing seems normal to whisper and finger rub bilaterally. Palate moves well without asymmetry. There is normal sternocleidomastoid and trapezius (shoulder shrug) strength bilaterally. Tongue is midline with good strength bilaterally. Neck has a full range of motion without discomfort. There are no cervical bruits bilaterally. There are no cranial or ocular bruits. Heart is without murmur. There is a regular rhythm and rate. Cervical, thoracic, and lumbar spine are nontender to palpation. Gait is not tested but stance sitting up in bed is reasonable. With outstretched arms there is no drift. There are no resting, postural, or action tremors. There is no ataxia with finger to nose testing. There is good facility in the hands. No other abnormal involuntary movements are noted. Motor strength is 5/5 diffusely in the arms bilaterally including deltoids, biceps, triceps, brachioradialis, wrist flexors and extensors, substation technician, and intrinsic hand muscles. Motor strength is 5/5 diffusely in the legs bilaterally including hip flexors, quadriceps, hamstrings, gastrocnemius, tibialis anterior, tibialis posterior, and Peroneii muscles. Toe extensors are normal and there is good bulk in the extensor digitorum brevis muscles bilaterally. The limbs have good tone without rigidity or spasticity. There is no atrophy noted in the muscles. Muscle bulk is normal, there is no tenderness to palpation, no myotonia to percussion, and no fasciculations seen. Sensory examination is intact to touch and pin throughout all 4 limbs diffusely. Vibratory and position sense testing is normal bilaterally as well. There is normal sensation to temperature. Reflexes are 1/4 in the biceps, triceps, brachioradialis, quadriceps, and Achilles tendons bilaterally. There is no clonus bilaterally. Toes are downgoing with plantar stimulation bilaterally. Peripheral pulses are present and of normal quality distally in all 4 limbs. There is no peripheral edema noted in the limbs. Results & Data Vital Signs (Past 12 Hours) Vital Signs Temp Pulse Pulse Pulse Resp BP BP 01/09/19 10:57 36.6 C 72 22 167/86 H 01/09/19 07:14 63 01/09/19 06:57 36.6 C 67 16 145/87 H 01/09/19 03:13 36.4 C L 65 16 111/65 01/09/19 00:08 36.1 C L 71 16 128/70 Pulse Ox 01/09/19 10:57 99 01/09/19 07:14 01/09/19 06:57 96 01/09/19 03:13 93 01/09/19 00:08 91 PG Care Time/CCT Total # of Minutes Spent Total Time Spent with Patient: 75 minutes Total time spent is greater than 50% in coordination of care (as documented) at patient's floor/unit and/or counseling patient: (1) Syncope Syncope type: unspecified Qualified Code(s): R55 - Syncope and collapse (2) Hypotension Hypotension type: unspecified hypotension type Qualified Code(s): I95.9 - Hypotension, unspecified
--- NOTE | 2019-01-09 14:44 | XRay Report ---
RIGHT SHOULDER 3 VIEWS HISTORY: Prior fall on shoulder; shoulder pain. COMPARISON: None. FINDINGS: There is no fracture or dislocation. Soft tissues are unremarkable. Right subclavian Port-A -Cath terminates at the SVC. The right clavicle is intact. Moderate AC joint arthrosis. Mild cartilag e space narrowing and small marginal osteophytes at the glenohumeral joint consistent with degenerati ve change. IMPRESSION: 1. No fracture or dislocation within the right shoulder. 2. Mild to moderate degenerative changes as described above. Electronically signed by: Augie Fernandez M.D. 01/09/2019 2:43 PM
--- NOTE | 2019-01-09 15:28 | Hospitalist Progress Note ---
Date of Service January 09, 2019 Assessment & Plan (1) Syncope: Multiple admission with unclear causes of temporary weakness and loss of consciousness. - Seen by Dr. Jackson who feels this may be medication-related. - Will minimize medications as able. - Will stop HCTZ on discharge - Monitor BP and HR overnight - Likely discharge tomorrow (2) Acute kidney injury: On admission, creatinine was1.84 and GFR 45.2, from baseline of ~1.3. Patient moderately dehydrated. - Started gentle IV fluids hydration. - Cr back to 1.1 on 01/09. Likely due to dehydration. (3) Dehydration: As the above, monitor electrolytes and hydration. (4) History of multiple sclerosis: Discussed with Dr. Jackson today. Low likelihood this is MS-related. - Continue Tysabri monthly. (5) Hypertension: Patient's blood pressure was at the lower side today. Hold antihypertensive medication if blood pressure less than 120/80. - Restart losartan tomorrow - Hold HCTZ (6) COPD (chronic obstructive pulmonary disease): Stable. No shortness of breath. - Continue Advair 1 puff inhalation twice daily and ipratropium albuterol 1 puff inhalation 4 times daily (7) DVT prophylaxis: Heparin 5000 units Q12h Subjective Feels at baseline today. No major changes in his strength. Considering PT/OT. Review of Systems Review of Systems: All systems reviewed & are unremarkable except as noted in HPI & below Physical Exam Constitutional: WD/WN, vitals as above Eyes: EOM intact bilaterally; no conjunctival abnormality ENMT: external ear and nose normal, oropharynx normal Neck: trachea midline, no thyromegaly normal visual inspection Respiratory: normal respiratory effort, lungs clear to auscultation no respiratory distress Cardiovascular: RRR, no murmur, no edema Gastrointestinal (Abdomen): Inspection/Auscultation: abdomen normal to inspection; abdomen not distended Musculoskeletal: no cyanosis or clubbing, extremities motor strength 5/5 Skin: no rashes, warm and dry Neurologic: moves all extremities and awake Psychiatric: Orientation: alert, oriented to person and cooperative Results & Data Vital Signs (Past 12 Hours) Vital Signs Temp Pulse Pulse Pulse Resp BP BP 01/09/19 10:57 36.6 C 72 22 167/86 H 01/09/19 07:14 63 01/09/19 06:57 36.6 C 67 16 145/87 H Pulse Ox 01/09/19 10:57 99 01/09/19 07:14 01/09/19 06:57 96 PG Care Time/CCT Total # of Minutes Spent Total Time Spent with Patient: Total time spent is greater than 50% in coordination of care (as documented) at patient's floor/unit and/or counseling patient: (1) Syncope Syncope type: unspecified Qualified Code(s): R55 - Syncope and collapse
[2019-01-09] MEDS: QUETIAPINE FUMARATE 200 MG TAB PO SCH (19:38)
[2019-01-09] MEDS: VENLAFAXINE HCL XR 150 MG CAPXR PO SCH (19:38)
[2019-01-10] MEDS: HEPARIN SOD 5,000 UNIT/0.5 ML VIAL SQ SCH (05:48)
[2019-01-10 06:32] LABS: Hematocrit (blood only) 34.6 % (42-52); Hemoglobin 12.2 g/dL (14.0-18.0); Mean Corpuscular Hgb Conc 35.3 g/dL (32-36); Mean Corpuscular Volume 84.8 fL (80-100); Mean Platelet Volume 10.6 fL (7.4-10.4); Platelet Count 142 K/uL (130-400); RDW Coefficient of Variation 13.8 % (11.5-14.5); RDW Standard Deviation 42.4 fL (36.4-46.3); Red Blood Count 4.08 M/uL (4.7-6.1); White Blood Count 6.12 K/uL (4.8-10.8)
[2019-01-10 07:09] LABS: Albumin Level 3.1 gm/dl (3.4-5.0); BUN Creatinine Ratio 18.2 (10-20); Calcium 8.1 mg/dl (8.5-10.1); Creatinine Clr Calc Pharmacy 72.7 ml/min; Est GFR (African American) 74.8; Est GFR (Non-African American) 64.6; Potassium 3.5 mmol/L (3.5-5.1)
[2019-01-10 07:12] LABS: Albumin Globulin Ratio 1.1 (0.9-2); Bilirubin,Total 0.8 mg/dl (0.2-1); Globulin 2.7 gm/dl (2.5-4.0); Total Protein 5.8 gm/dl (6.4-8.2)
[2019-01-10 07:32] LABS: Basophils # (auto) 0.02 K/uL (0-0.2); Basophils % (auto) 0.3 %; Eosinophils # (auto) 0.28 K/uL (0-0.5); Eosinophils % (auto) 4.6 %; Immature Granulocytes # (auto) 0.02 K/uL (0.00-0.02); Immature Granulocytes % (auto) 0.3 %; Lymphocytes # (auto) 3.13 K/uL (1.2-3.4); Lymphocytes % (auto) 51.1 %; Monocytes # (auto) 0.57 K/uL (0.11-0.59); Monocytes % (auto) 9.3 %; Neutrophils % (auto) 34.4 %
[2019-01-10] MEDS: FLUTICASONE/SALMETEROL (ADVAIR) 500/50 INH 14 PUFF INH SCH (08:23)
[2019-01-10] MEDS: MULTIVITAMIN TAB PO SCH (08:24)
[2019-01-10] MEDS: IPRATROPIUM BROMIDE/ALBUTEROL respimat INH INH SCH (08:24)
[2019-01-10] MEDS: CHOLECALCIFEROL 1,000 UNITS TAB PO SCH (08:24)
[2019-01-10] MEDS: CYANOCOBALAMIN 500 MCG TABLET (VITAMIN B-12) PO SCH (08:24)
[2019-01-10] MEDS: GABAPENTIN 300 MG CAP PO SCH (08:24)
[2019-01-10] MEDS: ASPIRIN 81 MG ECTAB PO SCH (08:24)
--- NOTE | 2019-01-10 09:13 | Neurology Progress Note ---
Date of Service January 10, 2019 Assessment & Plan (1) Syncope: (2) Dehydration: (3) Hypotension: (4) History of multiple sclerosis: (5) Depression with anxiety: (6) Shoulder pain, right: This patient was admitted 8-7, with a syncopal episode associated with dehydration and significant hypotension. This has happened to him before in the past. I do not believe this was a seizure disorder. His symptoms are improved and he feels back to baseline. He is not dehydrated by lab testing this morning and his blood pressure is improved. On examination he has no focal findings (except for giveaway weakness secondary to pain in his right shoulder), meningeal signs, or encephalopathy. Patient has a history of multiple sclerosis since the 1980s. He is very stable on Tysabri and there is no evidence of a flare-up or deterioration in multiple sclerosis today. He has had an MRI in September of 2018 which was stable. He has severe depression with anxiety on significant medication. Unfortunately, the higher doses tend to make him fatigued but lowering the doses creates worse mood. Currently his mood is doing very well. He has had chronic right shoulder pain worse over the last few weeks and were still since yesterday. He has decreased strength referable to the shoulder and I suspect a rotator injury. The x-ray showed no fracture or dislocation. Recommendations: 1. He will likely need an orthopedic evaluation as an outpatient. 2. Keep blood pressure with a mean arterial pressure of approximately 95-100, as you are doing. We need to avoid over-correction. 3. Continue to encourage p.o. fluids and hydration. 4. Continue monthly Tysabri, as usual. 5. Continue current anti depressants, Seroquel and venlafaxine at their usual doses. I may be able to lower 1 of these as an outpatient, and this may improve fatigue. He should also continue gabapentin at his usual doses. 6. I see no reason for additional neurologic testing or treatment at this time. I will follow as an outpatient. Overall, I spent a total of 25 minutes with this case including review of records, direct evaluation the patient bedside, and discussion the case with patient at bedside, and Dr. Russ, including differential diagnosis and treatment options. Subjective Feels much better today. He has no headache, dizziness, chest pain, lightheadedness, weakness or numbness. X-ray of the right shoulder showed no fracture and some degenerative changes. CBC shows anemia as before and Chem profile was unremarkable. Blood pressure today was 107/64. Physical Exam Physical Exam: He is awake and alert. Speech is without aphasia or dysarthria. Mood is good and affect is appropriate. Thought processes are intact. He has common cooperative. Extraocular eye muscles are intact without nystagmus. He has no facial droop. With outstretched arms there is no drift and no tremor of a resting, postural, or action nature. There is no ataxia with [id number] testing and strength is symmetrical in the limbs. Stance is normal sitting up bed. Results & Data Vital Signs (Past 12 Hours) Vital Signs Temp Pulse Pulse Resp BP Pulse Ox 01/10/19 07:56 66 01/10/19 07:00 36.7 C 69 18 142/86 H 96 01/10/19 03:49 36.7 C 65 16 107/64 93 01/10/19 00:01 36.5 C 74 16 156/88 H 94 PG Care Time/CCT Total # of Minutes Spent Total Time Spent with Patient: 25 min. Total time spent is greater than 50% in coordination of care (as documented) at patient's floor/unit and/or counseling patient: (1) Syncope Syncope type: unspecified Qualified Code(s): R55 - Syncope and collapse (2) Hypotension Hypotension type: unspecified hypotension type Qualified Code(s): I95.9 - Hypotension, unspecified
--- NOTE | 2019-01-10 13:51 | Discharge Summary ---
Date of Service January 10, 2019 Admission HPI Per Admitting Provider 73 years old male with past medical history of multiple sclerosis, COPD, hypertension frequent falls was brought by his daughter to the emergency room with a complaint that the patient had a syncopal episode prior to arrival to the hospital. Patient's daughter states that she lives next to her father's apartment and that he made a phone call in the morning stating that he passed out for 30 minutes after breakfast and it occurred approximately at 11 AM. Daughter said that she was not present at the scene when that happened and there was no weakness. Daughter reports that after that episode her father appears weak and not himself. During the interview and examination patient is alert and oriented and able to answer the questions. Patient states that he laid on the floor for approximately 30 minutes but he did not hit his head or injured any part of his body. He just felt very weak. Patient has complete memory of what happened before and after this event. Patient denies headache fever chills chest pain shortness of breath abdominal pain frequency urgency hemoptysis nausea vomiting or hematuria. Patient also complains of right shoulder pain and that was present after he woke up that event. EKG is reviewed and showed normal sinus rhythm with premature atrial complexes and nonspecific T wave abnormalities with prolonged QT interval no ST segment elevation or depression noted T wave abnormality mostly evident in the inferior leads. Labs: White blood cell count 6.93 hemoglobin 12.7 hematocrit 36.6 platelets 135. Chemistry sodium 142 potassium 3.6, chloride 108, BUN 25 creatinine 1.84 GFR 45.2, AST 12 ALT 20 total bilirubin 0.9 magnesium 2.2. POC glucose 143. CT had no intracranial abnormalities. Chest x-ray cardiomegaly with pulmonary vascular congestion. ER physician contacted Dr. Jackson neurology and the plan is to evaluate patient for the further management in the morning. Decision was made to admit patient to medicine on telemetry for observation. Principal Diagnosis Weakness, fall, syncope Discharge Exam Constitutional WD/WN, vitals as above Eyes EOM intact bilaterally; no conjunctival abnormality ENMT external ear and nose normal, oropharynx normal Neck trachea midline, no thyromegaly normal visual inspection Respiratory normal respiratory effort, lungs clear to auscultation no respiratory distress Cardiovascular RRR, no murmur, no edema Gastrointestinal (Abdomen) Inspection/Auscultation: abdomen normal to inspection; abdomen not distended Musculoskeletal no cyanosis or clubbing, extremities motor strength 5/5 Skin no rashes, warm and dry Neurologic moves all extremities and awake Psychiatric Orientation: alert, oriented to person and cooperative Discharge Data Allergies Allergy/AdvReac Type Severity Reaction Status Date / Time latex Allergy Unknown unknown Verified 01/08/19 13:03 adhesive AdvReac Intermediate RASH UNDER Verified 01/08/19 13:03 TAPES Consultations 01/08/19 13:59 ED Decision to Admit Stat 01/08/19 23:53 Consult Neurology Routine Ordered Studies 01/08/19 12:01 CT head/brain wo con Stat Hospital Course (1) Syncope: Multiple admission with unclear causes of temporary weakness and loss of consciousness. - Seen by Dr. Jackson who feels this may be medication-related. - Will minimize medications as able. - Will stop HCTZ on discharge - Restarted losartan on discharge at lower dose. He was as low as 105/60 in the morning, so he may have been getting overtreated. His MS may be playing a role in fairly variable blood pressures. (2) Acute kidney injury: On admission, creatinine was 1.84 and GFR 45.2, from baseline of ~1.3. Patient moderately dehydrated. - Started gentle IV fluids hydration. - Cr back to 1.1 on 01/09. Likely due to dehydration. (3) Dehydration: As the above, monitor electrolytes and hydration. (4) History of multiple sclerosis: Discussed with Dr. Jackson today. Low likelihood this is MS-related. - Continue Tysabri monthly. (5) Hypertension: Patient's blood pressure was at the lower side today. Hold antihypertensive medication if blood pressure less than 120/80. - Restarted losartan 25mg daily on discharge. - Held HCTZ on discharge. (6) COPD (chronic obstructive pulmonary disease): Stable. No shortness of breath. - Continue Advair 1 puff inhalation twice daily and ipratropium albuterol 1 puff inhalation 4 times daily (7) DVT prophylaxis: Heparin 5000 units Q12h Total Time Total Time Spent Total Time Spent (In Minutes): 34 Discharge Plan Discharge Items Patient Disposition: Home - Self-Care Reason For Visit: SYNCOPE Discharge Diagnosis: Weakness, falls, loss of consciousness (fainting) Discharge Goals: Diagnostic testing, Improve function and Increase independence Activity: Resume your previous activity Exercise/Sports: Gradually increase as tolerated Non-emergency contact: Primary Care Provider and Neurologist Call non-emergency contact if: your symptoms worsen Follow-up/Referrals: Jude De La Rosa MD [Primary Care Provider] - Diet: Regular Addtl Provider Instructions: We are worried your blood pressure is getting too low with the combination blood pressure medication. We are stopping one of the medications in your combo pill and lowering the dose of the remaining medication. Please check your blood pressure once per day around the same time each day. (For example, every morning or every evening before bed). If you are getting reading lower than 100/60, please stop your blood pressure medication (losartan) until you see Dr. De La Rosa or Dr. Jackson. Please start working out at the [facility] if you can to help build strength and endurance. If you want to reconsider physical therapy, please ask Dr. De La Rosa or Dr. Jackson to give you a prescription for it. Prescriptions: New losartan 25 mg tablet 25 mg PO DAILY Qty: 30 RF: 0 Continued multivitamin Tablet 1 tab PO QAM RF: 0 albuterol sulfate 2.5 mg /3 mL (0.083 %) Solution For Nebulization 2.5 mg INHALATION .Q4-6H PRN (Reason: Shortness Of Breath) RF: 0 quetiapine [Seroquel] 200 mg Tablet 200 mg PO HS RF: 0 cyanocobalamin (vitamin B-12) [Vitamin B-12] 1,000 mcg Tablet 1,000 mcg PO QAM RF: 0 aspirin 81 mg Tablet,Delayed Release (Dr/Ec) 81 mg PO QAM RF: 0 temazepam 15 mg Capsule 15 mg PO HS PRN (Reason: Sleep) RF: 0 gabapentin 300 mg Capsule 300 mg PO BID RF: 0 omeprazole 20 mg Capsule,Delayed Release(Dr/Ec) 20 mg PO BID RF: 0 Tysabri 300 mg/15 mL Solution 300 mg IV MONTHLY RF: 0 cholecalciferol (vitamin D3) [Vitamin D3] 2,000 unit Capsule 4,000 unit PO QAM RF: 0 sennosides-docusate sodium [Senokot-S] 8.6-50 mg Tablet PO UD PRN (Reason: Constipation) RF: 0 fluticasone propion-salmeterol [Advair Diskus] 500-50 mcg/dose blister with device 1 inh inhalation BID RF: 0 docusate sodium [Stool Softener] 100 mg Capsule 100 mg PO UD PRN (Reason: constipation) RF: 0 Combivent Respimat 20-100 mcg/actuation mist 1 puff inhalation QID RF: 0 venlafaxine 150 mg capsule,extended release 24hr 150 mg PO HS RF: 0 Discontinued losartan-hydrochlorothiazide 100-25 mg Tablet 1 tab PO QAM RF: 0 methocarbamol 750 mg Tablet 750 mg PO BID PRN (Reason: Muscle Spasms/Pain) RF: 0 Stand-Alone Forms: [facility] Discharge Orders: Discharge Order (Routine); Ordered 01/10/19 Ordered By: Renny Russ Admission Data Admit Date/Time: 01/08/19 16:17 Attending Provider: Renny Russ Admit Provider: Burak Byrd Primary Care Provider: Jude De La Rosa Other Providers: Brandon Jackson III ; Renny Russ Service: Telemetry Other Interventions: Discharge Summary Assessment (RN) Last Done: 01/10/19 09:00 DC Date/Time DO NOT enter until pt leaves facility: 01/10/19 11:46
== END 2019-01-10 11:46 | disposition home or self-care (01) ==
LOC: ED 11:44 → 2S 11:44 → SUATTDRO 16:17 → 2S 16:58

== ENCOUNTER 2020-02-20 14:02 | Observation (INO) ==
--- NOTE | 2020-02-20 14:31 | Emergency Department Note ---
Impression & Plan Acute CVA (cerebrovascular accident) ED Provider Note NAME: JEANIE PARIS AGE: 74 SEX: M : 1945 ARRIVES VIA: Walk-In INFORMANT: Patient, the patient significant other ED PROVIDER(S): Darryn Ramires DO CHIEF COMPLAINT: Weakness HPI: The patient is a 74-year-old male who presented to the emergency department for left-sided weakness. The patient started having intermittent episodes of left-sided weakness over the last few weeks. He was scheduled for an MRI which he did have recently that showed he was having "mini strokes" according to his significant other. The patient states he was feeling in his usual state of hea lth. He was at home alone. He was mowing the grass at approximately 11 AM. He started noticing he was having significant symptoms and felt as though he was "falling to the left". 911 was called and the patient was evaluated. His blood sugar was noted to be in the low 60s. He was treated for hypoglycemia. He states his symptoms improved. The patient refused transport at that time along with his significant other. They tried to call the primary care physician but instead talk to his primary neurologist. At his request they presented to the emergency department for further evaluation. The patient continues to have left-sided weakness. His significant other states that he is having difficulty with slow speech but otherwise appears to be near or at his baseline. The patient states that he has been having intermittent symptoms over the last few weeks. The patient denies having any headache. He denies having any nausea or vomiting. He denies having any chest pain. The patient is never had a history of stroke in the past. ROS: See above HPI for pertinent positives & negatives. A total of 10 systems reviewed and were otherwise negative. PAST MEDICAL HISTORY: See Below PAST SURGICAL HISTORY: See Below FAMILY HISTORY: See Below SOCIAL HISTORY: See Below HOME MEDICATIONS: See Below ALLERGIES: See Below VITALS: See Below PHYSICAL EXAMINATION: GENERAL: The patient is awake and responding to questions appropriately. He responds normally. He does not appear to be uncomfortable. EYES: The conjunctivae are clear. The pupils are round and reactive. EARS, NOSE, MOUTH AND THROAT: The nose is without any evidence of any deformity. NECK: The neck is nontender and supple. RESPIRATORY: Normal respiratory effort is noted there is no evidence of wheezing rhonchi or rales CARDIOVASCULAR: Regular rate and rhythm was noted to auscultation. Systolic murmur was suggested. GASTROINTESTINAL: The abdomen is soft. Abdomen is nontender. MUSCULOSKELETAL/EXTREMITIES: There is no evidence of gross deformity full range of motion is noted in the hips and shoulders. SKIN: There is no obvious evidence of any rash. Trace pedal edema was noted bilaterally. NEUROLOGIC: Patient is awake alert and oriented x3. There is a slight facial droop on the left side of the face. The forehead is spared. It appears to only involve the corner of the mouth. Speech is slow but understandable. Asset Protection Specialist strength is symmetric. There is no drift in the upper extremities. Patient is able to hold each leg off the bed for greater than 5 seconds however there is some diminished strength against the examiner strength in the left lower extremity compared to the right. MEDICAL DECISION MAKING: The patient is a 74-year-old male who presented to the emergency department for an evaluation of left-sided weakness. The patient's had intermittent episodes over the last few weeks but also had an MRI in December that showed a questionable area that could be consistent with a stroke. The patient presented to the emergency department today after initially refusing treatment by the prehospital personnel for acute left-sided weakness. The patient was not made a stroke alert because he presented to the emergency department greater than 3 hours after the onset of symptoms. He also had improving symptoms while he was in the emergency department. I discussed the patient's laboratory and radiographic studies with him. I do feel the patient's condition at this point could be consistent with a new stroke versus an exacerbation of his MS. I discussed his case with the covering [facility] neurologist. At this time I will discuss the case with the on-call [facility] hospitalist. The patient was reevaluated multiple times. Triage Nursing notes reviewed. Prior medical records reviewed Vital Signs: reviewed and remarkable for no significant abnormalities Differential diagnosis: Infection, dehydration, metabolic abnormality, hypo/hyperglycemia, electrolyte disturbance, anemia, hypoxia, cardiac sources, intracerebral event, toxicologic, neurologic, as well as other pathologies. ER treatment provided: See below Diagnostics interpreted by me: ECG: EKG was obtained in the emergency department. My interpretation is normal sinus rhythm at 76 bpm. There was no ectopy. Inferior and lateral ST d epressions were noted. This was compared to a tracing from January 08, 2019. No significant changes were noted. Cardiac Monitoring: An order was placed for continuous cardiac monitoring. The monitor shows a rate of 82 bpm with sinus rhythm. Laboratory studies: As stated above and show below. Imaging studies: See below Consultation(s): 1530: I discussed this case with harsha Kelly neurology, Dr. Erwin. She recommends further inpatient work-up as well as urinalysis and chest x-ray to rule out infectious process. Past Med/Surg History Medical History Acute foreign body of left ear canal Altered mental status COPD (chronic obstructive pulmonary disease) Depression with anxiety Eyebrow laceration Facial abrasion Fall Lumbar radiculopathy Multiple sclerosis Syncope Tinnitus, bilateral Surgical History History of colonoscopy History of open heart surgery S/P cataract surgery S/P tonsillectomy Family History Father , age 78 of cancer (uncertain type) Hypertension Hearing loss Colorectal cancer Mother , age 81 of cancer (uncertain type) Diabetes Hypertension Hearing loss Stroke Breast cancer Sister Hypertension Hearing loss Breast cancer Grandmother (Paternal) Hypertension Brother Hearing loss Social History Smoking Status: Former smoker packs per day: 2; Number of Years Since Quit: 30; Second Hand Exposure: No; Hx Alcohol Use: No Preferred Language: Turkish Communication Ability: Effective Management Advisor Required: No Beliefs That Will Affect Care: None marital status: / Current Living Situation: Alone current occupational status: retired and disabled current occupation: Retired maintenance department @ [employer] Feels Safe at Home: Yes Allergies Allergies Allergy/AdvReac Type Severity Reaction Status Date / Time latex Allergy Unknown unknown Verified 02/20/20 16:19 adhesive AdvReac Intermediate RASH UNDER Verified 02/20/20 16: TAPES Home Meds Home Medications Medication Instructions Recorded Confirmed albuterol sulfate 2.5 mg INHALATION .Q4-6H PRN 09/05/18 02/20/20 cyanocobalamin (vitamin B-12) 1,000 mcg PO QAM 09/05/18 02/20/20 [Vitamin B-12] multivitamin 1 tab PO QAM 09/05/18 02/20/20 docusate sodium [Stool Softener] 100 mg PO UD PRN 01/08/19 02/20/20 sennosides-docusate sodium 0 tab PO QPM PRN 01/08/19 02/20/20 [Senokot-S] cholecalciferol (vitamin D3) 125 5,000 units PO DAILY 03/17/19 02/20/20 mcg (5,000 unit) capsule omeprazole 20 mg PO BID 02/20/20 02/20/20 quetiapine 200 mg PO HS 02/20/20 02/20/20 Previous Rx's Medication Instructions Recorded fluticasone 500 mcg-salmeterol 50 See Rx Instructions .ROUTE 06/23/19 mcg/dose blistr powdr for .COMPLEX #180 each inhalation losartan 25 mg tablet 25 mg PO DAILY #90 tab 06/30/19 ipratropium 20 mcg-albuterol 100 1 puff INHALATION QID #4 gm 08/11/19 mcg/actuation mist for inhalation polyethylene glycol 3350 17 17 gm PO DAILY PRN #119 gm 10/14/19 gram/dose oral powder clopidogrel 75 mg tablet 75 mg PO DAILY #30 tab 01/14/20 gabapentin 300 mg capsule 300 mg PO BID #180 cap 01/14/20 naproxen 500 mg tablet,delayed 500 mg PO BID PRN #60 tab 01/14/20 release temazepam 15 mg capsule 15 mg PO HS PRN #90 ea 01/14/20 venlafaxine 150 mg 150 mg PO HS 90 Days #90 cap 01/14/20 capsule,extended release 24 hr natalizumab 300 mg/15 mL 300 mg IV MONTHLY 28 Days #15 ml 01/21/20 intravenous solution albuterol sulfate 90 mcg/actuation 2 puff INHALATION Q4H PRN #1 01/26/20 aerosol inhaler inhaler Results & Data (ED) Vital Signs Vital Signs - 24 hr 02/20/20 14:04 02/20/20 14:22 02/20/20 14:30 Temperature 36.8 C Temperature Source Oral Pulse Rate 84 79 78 Pulse Rate from SpO2 Sensor Respiratory Rate 22 22 23 Respiratory Effort / Characteristics Non-Labored Spontaneous Respiratory Depth Normal Respiratory Pattern Regular Blood Pressure 169/69 H Blood Pressure Mean 102 Pulse Oximetry 94 Oxygen Delivery Method Room Air Sepsis Recent Fever Within 48 Hours No Sepsis New/Unexplained Change in Mental Status N/A Sepsis Action Taken by Nursing No Action Required 02/20/20 14:53 02/20/20 15:00 02/20/20 15:10 Temperature Temperature Source Pulse Rate 74 73 71 Pulse Rate from SpO2 Sensor 73 71 Respiratory Rate 22 20 Respiratory Effort / Characteristics Respiratory Depth Respiratory Pattern Blood Pressure Blood Pressure Mean Pulse Oximetry 95 95 Oxygen Delivery Method Sepsis Recent Fever Within 48 Hours Sepsis New/Unexplained Change in Mental Status Sepsis Action Taken by Nursing 02/20/20 15:20 Temperature Temperature Source Pulse Rate 72 Pulse Rate from SpO2 Sensor Respiratory Rate 23 Respiratory Effort / Characteristics Respiratory Depth Respiratory Pattern Blood Pressure Blood Pressure Mean Pulse Oximetry Oxygen Delivery Method Sepsis Recent Fever Within 48 Hours Sepsis New/Unexplained Change in Mental Status Sepsis Action Taken by [facility] Medications Current Medication List: was personally reviewed by me Laboratory Data Attestation: I reviewed the patient's lab results. Result diagrams: 02/20/20 14:30 02/20/20 14:30 Lab Results 02/20/20 02/20/20 02/20/20 Range/Units 14:13 14:30 14:30 WBC 7.29 (4.8-10.8) K/uL RBC 4.75 (4.7-6.1) M/uL Hgb 14.1 (14.0-18.0) g/dL POC Hgb (14.0-18.0) g/dl Hct 40.2 L (42-52) % POC Hct (42-52) % MCV 84.6 (80-100) fL MCH 29.7 (25-34) pg MCHC 35.1 (32-36) g/dL RDW Std Deviation 43.1 (36.4-46.3) fL RDW Coeff of Lilia 14.0 (11.5-14.5) % Plt Count 160 (130-400) K/uL MPV 10.3 (7.4-10.4) fL Immature Gran % (Auto) 0.3 % Neut % (Auto) 53.5 % Lymph % (Auto) 32.6 % [place] % (Auto) 9.2 % Eos % (Auto) 4.0 % Baso % (Auto) 0.4 % Neut # (Auto) 3.90 (1.4-6.5) K/uL Lymph # (Auto) 2.38 (1.2-3.4) K/uL [place] # (Auto) 0.67 H (0.11-0.59) K/uL Eos # (Auto) 0.29 (0-0.5) K/uL Baso # (Auto) 0.03 (0-0.2) K/uL Immature Gran # (Auto) 0.02 (0.00-0.02) K/uL Absolute Nucleated RBC 0.03 H (0-0) K/uL Nucleated RBC % (auto) 0.4 % PT 11.3 (9.0-12.0) Seconds INR 1.1 (0.9-1.1) APTT 26.2 (21.0-31.0) Seconds PTT Ratio 0.9 POC Sodium (135-144) mmol/L Sodium (136-145) mmol/L POC Potassium (3.3-5.0) mmol/L Potassium (3.5-5.1) mmol/L POC Chloride (101-112) mmol/L Chloride (98-107) mmol/L Carbon Dioxide (21-32) mmol/L POC Total CO2 (24-31) mmol/L Anion Gap (3-11) POC Anion Gap (16-25) mmol/L POC BUN (7-18) mg/dl BUN (7-18) mg/dl Creatinine (0.6-1.4) mg/dl POC Creatinine (0.6-1.3) mg/dl Est Cr Clr Drug Dosing ml/min Est GFR ( Amer) Est GFR (Non-Af Amer) BUN/Creatinine Ratio (10-20) Glucose (70-99) mg/dl POC Glucose 160 H (70-99) mg/dl POC Glucose (other) (70-99) mg/dl Calcium (8.5-10.1) mg/dl POC Ioniz Calcium Michael (1.12-1.32) mmol/l Magnesium (1.8-2.4) mg/dl Total Bilirubin (0.2-1) mg/dl AST (15-37) U/L ALT (12-78) U/L Alkaline Phosphatase (45-117) U/L Troponin I (0-0.045) ng/ml Total Protein (6.4-8.2) gm/dl Albumin (3.4-5.0) gm/dl Globulin (2.5-4.0) gm/dl Albumin/Globulin Ratio (0.9-2) 02/20/20 02/20/20 Range/Units 14:30 14:33 WBC (4.8-10.8) K/uL RBC (4.7-6.1) M/uL Hgb (14.0-18.0) g/dL POC Hgb 13.3 L (14.0-18.0) g/dl Hct (42-52) % POC Hct 39 L (42-52) % MCV (80-100) fL MCH (25-34) pg MCHC (32-36) g/dL RDW Std Deviation (36.4-46.3) fL RDW Coeff of Lilia (11.5-14.5) % Plt Count (130-400) K/uL MPV (7.4-10.4) fL Immature Gran % (Auto) % Neut % (Auto) % Lymph % (Auto) % [place] % (Auto) % Eos % (Auto) % Baso % (Auto) % Neut # (Auto) (1.4-6.5) K/uL Lymph # (Auto) (1.2-3.4) K/uL [place] # (Auto) (0.11-0.59) K/uL Eos # (Auto) (0-0.5) K/uL Baso # (Auto) (0-0.2) K/uL Immature Gran # (Auto) (0.00-0.02) K/uL Absolute Nucleated RBC (0-0) K/uL Nucleated RBC % (auto) % PT (9.0-12.0) Seconds INR (0.9-1.1) APTT (21.0-31.0) Seconds PTT Ratio POC Sodium 142 (135-144) mmol/L Sodium 142 (136-145) mmol/L POC Potassium 3.6 (3.3-5.0) mmol/L Potassium 3.7 (3.5-5.1) mmol/L POC Chloride 104 (101-112) mmol/L Chloride 109 H (98-107) mmol/L Carbon Dioxide 27 (21-32) mmol/L POC Total CO2 24 (24-31) mmol/L Anion Gap 6.0 (3-11) POC Anion Gap 19.0 (16-25) mmol/L POC BUN 16 (7-18) mg/dl BUN 16 (7-18) mg/dl Creatinine 1.01 (0.6-1.4) mg/dl POC Creatinine 0.8 (0.6-1.3) mg/dl Est Cr Clr Drug Dosing 82.2 ml/min Est GFR ( Amer) 85.1 Est GFR (Non-Af Amer) 73.4 BUN/Creatinine Ratio 15.9 (10-20) Glucose 147 H (70-99) mg/dl POC Glucose (70-99) mg/dl POC Glucose (other) 149 H (70-99) mg/dl Calcium 8.7 (8.5-10.1) mg/dl POC Ioniz Calcium Michael 1.19 (1.12-1.32) mmol/l Magnesium 2.3 (1.8-2.4) mg/dl Total Bilirubin 0.9 (0.2-1) mg/dl AST 13 L (15-37) U/L ALT 19 (12-78) U/L Alkaline Phosphatase 100 (45-117) U/L Troponin I < 0.015 (0-0.045) ng/ml Total Protein 6.9 (6.4-8.2) gm/dl Albumin 3.6 (3.4-5.0) gm/dl Globulin 3.3 (2.5-4.0) gm/dl Albumin/Globulin Ratio 1.1 (0.9-2) Administered Medications Sodium Chloride (Nss 1000ml) 1,000 mls @ 50 mls/hr IV .Q20H MUKUL Stop: 03/21/20 14:29 Last Admin: 02/20/20 14:48 Dose: 50 mls/hr Documented by: [id number] Discontinued Medications Aspirin (Aspirin Chew 324 Mg) 324 mg PO NOW STA Stop: 02/20/20 15:36 Last Admin: 02/20/20 15:38 Dose: 324 mg Documented by: [id number] Lorazepam (Ativan) 1 mg in 2 mls @ 2 mls/min IV NOW STA Stop: 02/20/20 15:36 Last Admin: 02/20/20 16:10 Dose: 2 mls/min Documented by: [id number] Ioversol (Ioversol 100ml) 120 ml IV ONCE ONE Stop: 02/20/20 14:43 Last Admin: 02/20/20 14:43 Dose: 120 ml Documented by: [id number] Imaging Data Radiologist's Impression: HEAD & NECK CTA HISTORY: Stroke symptoms. Stroke evaluation TECHNIQUE: Multiaxial CT images of the head were performed following the intravenous administration of contrast to evaluate the major cerebral vessels. Multiaxial CT images of the neck were also performed following the intravenous administration of contrast to evaluate the major cervical vessels. Maximum intensity projection images were also obtained. A dose lowering technique was utilized adhering to the principles of ALARA. COMPARISON: Brain MRI 12/29/[address] 01/18/2019. FINDINGS: Visualized intracranial internal carotid arteries, distal vertebral arteries, and basilar artery are widely patent. There is no significant stenosis or o cclusion seen within the bilateral ACAs, MCAs, or left RIP SAW OPERATOR. Moderate focal narrowing within the mid right RIP SAW OPERATOR best seen on axial image 102. No occlusion identified. Mild calcified plaque within the bilateral carotid siphons. There is a 3 mm anterior communicating artery aneurysm best seen on axial image 107. The major dural venous sinuses appear patent. The aortic arch and proximal great vessels are widely patent. There is no significant stenosis, occlusion, or dissection identified within the bilateral common carotid, left internal carotid, or vertebral arteries. Up to 70% narrowing within the proximal right ICA due to the moderate noncalcified atherosclerotic plaque at the carotid bulb. IMPRESSION: 1. 1. A 3 mm anterior communicating artery aneurysm. 2. Moderate focal narrowing within the mid right RIP SAW OPERATOR. No arterial occlusion identified within the [place] of [place]. 3. Up to 70% narrowing within the proximal right ICA due to the moderate noncalcified up sclerotic plaque at the carotid bulb. ACT 112: Negative or not required by law. Electronically signed by: Augie Fernandez M.D. 02/20/2020 3:03 PM Dictated: 02/20/20 1454 Transcribed: 02/20/[address] head/brain wo con CLINICAL HISTORY: 74 years-old Male with Stroke evaluation . Acute strokelike symptoms TECHNIQUE: Multiple axial CT images of the head were obtained without contrast. A dose lowering technique was utilized adhering to the principles of ALARA. COMPARISON: CTA head neck of same day, brain MRI 12/29/2019, head CT 01/08/2019. FINDINGS: No acute intracranial hemorrhage, midline shift, intracranial mass, hydrocephalus, territorial ischemia or abnormal extra-axial collection. Age-related involutional changes with patchy white matter hypodensities. Numerous remote lacunar infarcts within the payton radiata and basal ganglia. Cerebral vascular calcifications. The calvarium is intact. The paranasal sinuses, mastoid air cells, and middle ear cavities are clear. IMPRESSION: No acute intracranial abnormality. ACT 112: Negative or not required by law. The above report was generated using voice recognition software. It may contain grammatical, syntax or spelling errors. Electronically signed by: Adams Haney M.D. 02/20/2020 2:56 PM Dictated: 02/20/20 1452 Transcribed: 02/20/20 1452 XR chest 1V portable HISTORY: Weakness. COMPARISON: Chest 01/08/2019. FINDINGS: No pneumothorax. Trace bilateral pleural effusions. The heart is normal in size. Mild central pulmonary vascular congestion without overt edema. No new focal lung consolidations to suggest pneumonia. Right subclavian Port-A-Cath terminates at the SVC. IMPRESSION: 1. Mild central pulmonary vascular congestion without overt edema. 2. Trace bilateral pleural effusions. ACT 112: Negative or not required by law. Electronically signed by: Augie Fernandez M.D. 02/20/2020 2:47 PM Dictated: 02/20/20 1444 Transcribed: 02/20/20 1444 Brain MRI WITHOUT CONTRAST HISTORY: Left-sided weakness. Assess for stroke. TECHNIQUE: Multiplanar multisequence MRI of the brain was performed without the use of contrast. COMPARISON STUDY: Head CT 02/20/2020. Brain MRI 12/29/2019. FINDINGS: Questionable punctate focus of restricted diffusion to within the left frontal payton radiata on image 19. The midline structures are intact. The major vascular flow voids at the skull base are well-maintained. The ventricles and sulci demonstrate mild age-related involutional changes. Evidence for prior bilateral lens replacement. Paranasal sinuses and left mastoid air cells are clear. Few opacified right inferior mastoid air cells. There is no mass, hematoma, midline shift. Extensive paravertebral white matter T2 hyperintensity is nonspecific and probably change. Scattered periventricular and basal ganglia small cystic foci are again noted. This could be due to old lacunar infarcts, prominent perivascular spaces, or related to multiple sclerosis. IMPRESSION: 1. Questionable punctate focus of restricted diffusion within the left frontal payton radiata. This could represent a punctate acute infarct. 2. No significant change in the extensive periventricular white matter T2 hyperintensity. This could be due to microvascular ischemic change or a demyelinating disease. ACT 112: Negative or not required by law. Electronically signed by: Augie Fernandez M.D. 02/20/2020 4:51 PM Dictated: 02/20/20 164 Transcribed: 02/20/201645 Blood Pressure Blood Pressure Findings: Elevated blood pressure Discharge Plan Visit Data Chief Complaint: Hypoglycemia Stated Complaint: HYPOGLYCEMIA ED Provider: Darryn Ramires Discharge Problem: Acute CVA (cerebrovascular accident) Patient Disposition: Being Evaluated by Hospitalist Condition: Good Forms Stand Alone Forms: My [facility] Prescriptions Prescriptions: No Action fluticasone propion-salmeterol 500-50 mcg/dose blister with device See Rx Instructions .ROUTE .COMPLEX Qty: 180 RF: 3 losartan 25 mg tablet 25 mg PO DAILY Qty: 90 RF: 3 Combivent Respimat 20-100 mcg/actuation mist 1 puff inhalation QID Qty: 4 RF: 5 polyethylene glycol 3350 [Miralax] 17 gram/dose powder 17 gm PO DAILY PRN (Reason: constipation) Qty: 119 RF: 2 Tysabri 300 mg/15 mL solution 300 mg IV MONTHLY 28 Days Qty: 15 RF: 10 albuterol sulfate [Ventolin HFA] 90 mcg/actuation HFA aerosol inhaler 2 puff inhalation Q4H PRN (Reason: shortness of breath or wheezing) Qty: 1 RF: 11 cholecalciferol (vitamin D3) 5,000 unit capsule 5,000 units PO DAILY RF: 0 venlafaxine 150 mg capsule,extended release 24hr 150 mg PO HS 90 Days Qty: 90 RF: 1 temazepam 15 mg capsule 15 mg PO HS PRN (Reason: insomnia) Qty: 90 RF: 1 gabapentin 300 mg capsule 300 mg PO BID Qty: 180 RF: 1 clopidogrel 75 mg tablet 75 mg PO DAILY Qty: 30 RF: 2 naproxen [EC-Naproxen] 500 mg tablet,delayed release (DR/EC) 500 mg PO BID PRN (Reason: pain) Qty: 60 RF: 0 multivitamin Tablet 1 tab PO QAM RF: 0 albuterol sulfate 2.5 mg /3 mL (0.083 %) Solution For Nebulization 2.5 mg INHALATION .Q4-6H PRN (Reason: Shortness Of Breath) RF: 0 cyanocobalamin (vitamin B-12) [Vitamin B-12] 1,000 mcg Tablet 1,000 mcg PO QAM RF: 0 sennosides-docusate sodium [Senokot-S] 8.6-50 mg Tablet 0 tab PO QPM PRN (Reason: Constipation) RF: 0 docusate sodium [Stool Softener] 100 mg Capsule 100 mg PO UD PRN (Reason: constipation) RF: 0 omeprazole 20 mg capsule,delayed release(DR/EC) 20 mg PO BID RF: 0 quetiapine 200 mg tablet 200 mg PO HS RF: 0 Referrals Referrals: Jude De La Rosa MD [Primary Care Provider] -
[2020-02-20] MEDS ORDERED: IOVERSOL 100ml IV ONE (14:42)
[2020-02-20 14:43] LABS: Basophils # (auto) 0.03 K/uL (0-0.2); Basophils % (auto) 0.4 %; Eosinophils # (auto) 0.29 K/uL (0-0.5); Hematocrit (blood only) 40.2 % (42-52); Hemoglobin 14.1 g/dL (14.0-18.0); Immature Granulocytes # (auto) 0.02 K/uL (0.00-0.02); Immature Granulocytes % (auto) 0.3 %; Lymphocytes # (auto) 2.38 K/uL (1.2-3.4); Lymphocytes % (auto) 32.6 %; Mean Corpuscular Hemoglobin 29.7 pg (25-34); Mean Corpuscular Hgb Conc 35.1 g/dL (32-36); Mean Corpuscular Volume 84.6 fL (80-100); Mean Platelet Volume 10.3 fL (7.4-10.4); Monocytes # (auto) 0.67 K/uL (0.11-0.59); Monocytes % (auto) 9.2 %; Neutrophils % (auto) 53.5 %; Nucleated RBC # (auto) 0.03 K/uL (0-0); Nucleated RBC % (auto) 0.4 %; Platelet Count 160 K/uL (130-400); RDW Standard Deviation 43.1 fL (36.4-46.3); Red Blood Count 4.75 M/uL (4.7-6.1); White Blood Count 7.29 K/uL (4.8-10.8)
[2020-02-20 14:45] LABS: iSTAT Creatinine 0.8 mg/dl (0.6-1.3); iSTAT Hemoglobin 13.3 g/dl (14.0-18.0); iSTAT Ionized Calcium 1.19 mmol/l (1.12-1.32); iSTAT Potassium 3.6 mmol/L (3.3-5.0)
[2020-02-20] MEDS: SODIUM CHLORIDE 0.9% 1000ML 1,000 ML IV SCH (14:48)
--- NOTE | 2020-02-20 14:48 | XRay Report ---
XR chest 1V portable HISTORY: Weakness. COMPARISON: Chest 01/08/2019. FINDINGS: No pneumothorax. Trace bilateral pleural effusions. The heart is normal in size. Mild centr al pulmonary vascular congestion without overt edema. No new focal lung consolidations to suggest pne umonia. Right subclavian Port-A-Cath terminates at the SVC. IMPRESSION: 1. Mild central pulmonary vascular congestion without overt edema. 2. Trace bilateral pleural effusions. ACT 112: Negative or not required by law. Electronically signed by: Augie Fernandez M.D. 02/20/2020 2:47 PM
--- NOTE | 2020-02-20 14:57 | CT Scan Report ---
CT head/brain wo con CLINICAL HISTORY: 74 years-old Male with Stroke evaluation . Acute strokelike symptoms TECHNIQUE: Multiple axial CT images of the head were obtained without contrast. A dose lowering tech nique was utilized adhering to the principles of ALARA. COMPARISON: CTA head neck of same day, brain MRI 12/29/2019, head CT 01/08/2019. FINDINGS: No acute intracranial hemorrhage, midline shift, intracranial mass, hydrocephalus, territorial ischem ia or abnormal extra-axial collection. Age-related involutional changes with patchy white matter hypo densities. Numerous remote lacunar infarcts within the [place] radiata and basal ganglia. Cerebral vas cular calcifications. The calvarium is intact. The paranasal sinuses, mastoid air cells, and middle ear cavities are clear . IMPRESSION: No acute intracranial abnormality. ACT 112: Negative or not required by law. The above report was generated using voice recognition software. It may contain grammatical, syntax o r spelling errors. Electronically signed by: Adasm Haney M.D. 02/20/2020 2:56 PM
[2020-02-20 14:58] LABS: INR 1.1 (0.9-1.1); Partial Thromboplastin Ratio 0.9; Partial Thromboplastin Time 26.2 Seconds (21.0-31.0); Prothrombin Time 11.3 Seconds (9.0-12.0)
--- NOTE | 2020-02-20 15:05 | CT Scan Report ---
HEAD & NECK CTA HISTORY: Stroke symptoms. Stroke evaluation TECHNIQUE: Multiaxial CT images of the head were performed following the intravenous administration o f contrast to evaluate the major cerebral vessels. Multiaxial CT images of the neck were also perform ed following the intravenous administration of contrast to evaluate the major cervical vessels. Maxim um intensity projection images were also obtained. A dose lowering technique was utilized adhering to the principles of ALARA. COMPARISON: Brain MRI 12/29/[address] 01/18/2019. FINDINGS: Visualized intracranial internal carotid arteries, distal vertebral arteries, and basilar artery are widely patent. There is no significant stenosis or occlusion seen within the bilateral ACAs, MCAs, or left SUPERVISOR [employer]. Moderate focal narrowing within the mid right [employer] best seen on axial image 102. No occlusi on identified. Mild calcified plaque within the bilateral carotid siphons. There is a 3 mm anterior c ommunicating artery aneurysm best seen on axial image 107. The major dural venous sinuses appear gonzalez nt. The aortic arch and proximal great vessels are widely patent. There is no significant stenosis, occ lusion, or dissection identified within the bilateral common carotid, left internal carotid, or verte bral arteries. Up to 70% narrowing within the proximal right ICA due to the moderate noncalcified ath erosclerotic plaque at the carotid bulb. IMPRESSION: 1. 1. A 3 mm anterior communicating artery aneurysm. 2. Moderate focal narrowing within the mid right [employer]. No arterial occlusion identified within the [place]. 3. Up to 70% narrowing within the proximal right ICA due to the moderate noncalcified up sclerotic pl aque at the carotid bulb. ACT 112: Negative or not required by law. Electronically signed by: Augie Fernandez M.D. 02/20/2020 3:03 PM
--- NOTE | 2020-02-20 15:05 | CT Scan Report ---
HEAD & NECK CTA HISTORY: Stroke symptoms. Stroke evaluation TECHNIQUE: Multiaxial CT images of the head were performed following the intravenous administration o f contrast to evaluate the major cerebral vessels. Multiaxial CT images of the neck were also perform ed following the intravenous administration of contrast to evaluate the major cervical vessels. Maxim um intensity projection images were also obtained. A dose lowering technique was utilized adhering to the principles of ALARA. COMPARISON: Brain MRI 12/29/[address] 01/18/2019. FINDINGS: Visualized intracranial internal carotid arteries, distal vertebral arteries, and basilar artery are widely patent. There is no significant stenosis or occlusion seen within the bilateral ACAs, MCAs, or left FAMILY COUNSELOR. Moderate focal narrowing within the mid right FAMILY COUNSELOR best seen on axial image 102. No occlusi on identified. Mild calcified plaque within the bilateral carotid siphons. There is a 3 mm anterior c ommunicating artery aneurysm best seen on axial image 107. The major dural venous sinuses appear gonzalez nt. The aortic arch and proximal great vessels are widely patent. There is no significant stenosis, occ lusion, or dissection identified within the bilateral common carotid, left internal carotid, or verte bral arteries. Up to 70% narrowing within the proximal right ICA due to the moderate noncalcified ath erosclerotic plaque at the carotid bulb. IMPRESSION: 1. 1. A 3 mm anterior communicating artery aneurysm. 2. Moderate focal narrowing within the mid right FAMILY COUNSELOR. No arterial occlusion identified within the cir [place] of [place]. 3. Up to 70% narrowing within the proximal right ICA due to the moderate noncalcified up sclerotic pl aque at the carotid bulb. ACT 112: Negative or not required by law. Electronically signed by: Augie Fernandez M.D. 02/20/2020 3:03 PM
[2020-02-20 15:23] LABS: Alanine Aminotransferase 19 U/L (12-78); Albumin Globulin Ratio 1.1 (0.9-2); Albumin Level 3.6 gm/dl (3.4-5.0); Alkaline Phosphatase 100 U/L (45-117); Aspartate Aminotransferase 13 U/L (15-37); BUN Creatinine Ratio 15.9 (10-20); Bilirubin,Total 0.9 mg/dl (0.2-1); Blood Urea Nitrogen 16 mg/dl (7-18); Calcium 8.7 mg/dl (8.5-10.1); Carbon Dioxide 27 mmol/L (21-32); Chloride 109 mmol/L (98-107); Creatinine Clr Calc Pharmacy 82.2 ml/min; Est GFR (African American) 85.1; Est GFR (Non-African American) 73.4; Glucose 147 mg/dl (70-99); Magnesium 2.3 mg/dl (1.8-2.4); Potassium 3.7 mmol/L (3.5-5.1); Sodium 142 mmol/L (136-145); Total Protein 6.9 gm/dl (6.4-8.2); Troponin I < 0.015 ng/ml (0-0.045)
[2020-02-20 15:24] LABS: Globulin 3.3 gm/dl (2.5-4.0)
[2020-02-20] MEDS ORDERED: LORazepam 1 MG/2 ML VIAL IV STA (15:35)
[2020-02-20] MEDS ORDERED: ASPIRIN CHEW 324 MG PO STA (15:35)
--- NOTE | 2020-02-20 16:53 | Magnetic Resonance Report ---
Brain MRI WITHOUT CONTRAST HISTORY: Left-sided weakness. Assess for stroke. TECHNIQUE: Multiplanar multisequence MRI of the brain was performed without the use of contrast. COMPARISON STUDY: Head CT 02/20/2020. Brain MRI 12/29/2019. FINDINGS: Questionable punctate focus of restricted diffusion to within the left frontal payton radia ta on image 19. The midline structures are intact. The major vascular flow voids at the skull base ar e well-maintained. The ventricles and sulci demonstrate mild age-related involutional changes. Eviden ce for prior bilateral lens replacement. Paranasal sinuses and left mastoid air cells are clear. Few opacified right inferior mastoid air cells. There is no mass, hematoma, midline shift. Extensive para vertebral white matter T2 hyperintensity is nonspecific and probably change. Scattered periventricula r and basal ganglia small cystic foci are again noted. This could be due to old lacunar infarcts, pro minent perivascular spaces, or related to multiple sclerosis. IMPRESSION: 1. Questionable punctate focus of restricted diffusion within the left frontal payton radiata. This c ould represent a punctate acute infarct. 2. No significant change in the extensive periventricular white matter T2 hyperintensity. This could be due to microvascular ischemic change or a demyelinating disease. ACT 112: Negative or not required by law. Electronically signed by: Augie Fernandez M.D. 02/20/2020 4:51 PM
[2020-02-20] MEDS ORDERED: TEMAZEPAM 15 MG CAPSULE PO PRN (18:15)
[2020-02-20] MEDS ORDERED: PHARMACIST DISCHARGE MED REC CONSULT PRN (18:15)
[2020-02-20] MEDS ORDERED: ACETAMINOPHEN 325 MG TAB PO PRN (18:15)
[2020-02-20] MEDS ORDERED: ONDANSETRON INJ 2 MG/ML 2 ML VIAL IV PRN (18:15)
[2020-02-20] MEDS ORDERED: ALBUT/IPRATROP 3MG/0.5MG NEB 3 ML VIAL NEB PRN (18:15)
[2020-02-20] MEDS ORDERED: GLUCAGON FOR INJ 1 MG VIAL IM PRN (18:30)
[2020-02-20] MEDS ORDERED: GLUCOSE 10 TABS/TUBE PO PRN (18:30)
[2020-02-20] MEDS ORDERED: GLUCOSE 40% GEL 15 GM TUBE PO PRN (18:30)
[2020-02-20] MEDS ORDERED: CARBOHYDRATES FOR HYPOGLYCEMIA PO PRN (18:30)
[2020-02-20] MEDS ORDERED: DEXTROSE 50% 50 ML SYRINGE IV PRN (18:30)
[2020-02-20] MEDS ORDERED: QUETIAPINE FUMARATE 200 MG TAB PO SCH (21:00)
[2020-02-20] MEDS ORDERED: VENLAFAXINE HCL XR 150 MG CAPXR PO SCH (21:00)
--- NOTE | 2020-02-20 21:42 | History & Physical Report ---
Date of Service February 20, 2020 Assessment & Plan (1) Acute CVA (cerebrovascular accident): left payton radiata small infarct on MRI CTA neck with right sided ICA stenosis will place on monitor, recently completed Holter check Echo continue Plavix 75mg daily permissive HTN check lipid panel and HbA1c consult neurology PT/OT evaluations (2) Gait disturbance: stroke vs MS flare consult neurology for their opinion (3) Hypertension: permissive HTN for now hold home medications (Losartan 25mg daily) BP goal will be 140/90 (4) Multiple sclerosis: on natalizumab monthly consult neuro (5) COPD (chronic obstructive pulmonary disease): (6) Depression with anxiety: (7) Hypoglycemia: unclear why this would happen he ate breakfast of complex carbs with bread and peanut butter not on any medications will monitor sugars ACHS Novolog with correction factor 40, no carb ratio Admission and Anticipated Discharge Date Admission Date: February 20, 2020 History of Present Illness Chief Complaint: slumped over to the left Primary Care Provider: Jude De La Rosa MD 74 yo male with history of multiple sclerosis, follows with Dr. Jackson, with recent finding of possible stroke in December 2019 who was brought to the ED due to lethargy, falling to the left and hypoglycemia prior to admission. The history was obtained from his daughter at the bedside. The patient has been "off" for a few months. His gait, his strength have been diminished. He had an MRI of the brain in December per Dr. Jackson that showed 1.2 x 0.6 cm focus of signal abnormality within the left basal ganglia which is new since previous MRI. This demonstrates mild enhancement. The appearance favors a small subacute infarct. However, activ e demyelination could appear similar. He also had a cervical MRI that showed enhancement in C2, C4 and C5 level. Considered possible stroke in basal ganglia vs MS flare. He completed a Holter monitor and was scheduled for echocardiogram as outpatient. He has continued to have weakness and ambulatory difficulties. He has been under a great deal of stress recently with foreclosure on his home, he had to move out, his children have been arguing over property. Today he was riding a water quality manager and was noted to be slumped to the left. His sugar was 64, he was given dextrose and ate a sandwich. His daughter says he is not on any medications for diabetes, was told he was pre-diabetic and he has been trying to eat less carbohydrates. He eats two peanut butter sandwiches in the morning instead of four, eats less sweets, cut out his 11pm snack. In the morning his sugars are 160-180 despite making these changes. In the ED he had CTA head and neck and MRI brain. MRI with new acute stroke in left payton radiata. Asked to admit for stroke work up. Allergies Allergy/AdvReac Type Severity Reaction Status Date / Time latex Allergy Unknown unknown Verified 02/20/20 16:19 adhesive AdvReac Intermediate RASH UNDER Verified 02/20/20 16:20 TAPES Home Medications Home Medications Medication Instructions Recorded Confirmed Type albuterol sulfate 2.5 mg INHALATION .Q4-6H PRN 09/05/18 02/20/20 History cyanocobalamin (vitamin B-12) 1,000 mcg PO QAM 09/05/18 02/20/20 History [Vitamin B-12] multivitamin 1 tab PO QAM 09/05/18 02/20/20 History docusate sodium [Stool Softener] 100 mg PO UD PRN 01/08/19 02/20/20 History sennosides-docusate sodium 0 tab PO QPM PRN 01/08/19 02/20/20 History [Senokot-S] cholecalciferol (vitamin D3) 125 5,000 units PO DAILY 03/17/19 02/20/20 History mcg (5,000 unit) capsule fluticasone 500 mcg-salmeterol 50 See Rx Instructions .ROUTE 06/23/19 02/20/20 Rx mcg/dose blistr powdr for .COMPLEX #180 each inhalation losartan 25 mg tablet 25 mg PO DAILY #90 tab 06/30/19 02/20/20 Rx ipratropium 20 mcg-albuterol 100 1 puff INHALATION QID #4 gm 08/11/19 02/20/20 Rx mcg/actuation mist for inhalation polyethylene glycol 3350 17 17 gm PO DAILY PRN #119 gm 10/14/19 02/20/20 Rx gram/dose oral powder clopidogrel 75 mg tablet 75 mg PO DAILY #30 tab 01/14/20 02/20/20 Rx gabapentin 300 mg capsule 300 mg PO BID #180 cap 01/14/20 02/20/20 Rx naproxen 500 mg tablet,delayed 500 mg PO BID PRN #60 tab 01/14/20 02/20/20 Rx release temazepam 15 mg capsule 15 mg PO HS PRN #90 ea 01/14/20 02/20/20 Rx venlafaxine 150 mg 150 mg PO HS 90 Days #90 cap 01/14/20 02/20/20 Rx capsule,extended release 24 hr natalizumab 300 mg/15 mL 300 mg IV MONTHLY 28 Days #15 ml 01/21/20 02/20/20 Rx intravenous solution albuterol sulfate 90 mcg/actuation 2 puff INHALATION Q4H PRN #1 01/26/20 02/20/20 Rx aerosol inhaler inhaler omeprazole 20 mg PO BID 02/20/20 02/20/20 History quetiapine 200 mg PO HS 02/20/20 02/20/20 History Past Med/Surg History Medical History Acute foreign body of left ear canal Altered mental status COPD (chronic obstructive pulmonary disease) Depression with anxiety Eyebrow laceration Facial abrasion Fall Lumbar radiculopathy Multiple sclerosis Syncope Tinnitus, bilateral Surgical History History of colonoscopy History of open heart surgery S/P cataract surgery S/P tonsillectomy Family History Father , age 78 of cancer (uncertain type) Hypertension Hearing loss Colorectal cancer Mother , age 81 of cancer (uncertain type) Diabetes Hypertension Hearing loss Stroke Breast cancer Sister Hypertension Hearing loss Breast cancer Grandmother (Paternal) Hypertension Brother Hearing loss Social History Smoking Status: Former smoker packs per day: 2; Number of Years Since Quit: 30; Second Hand Exposure: No; Hx Alcohol Use: Yes Alcohol type: beer Hx Substance Use: No Preferred Language: Panamanian Communication Ability: Effective Security Systems Sales Representative Required: No Beliefs That Will Affect Care: None marital status: / Current Living Situation: Family current occupational status: retired and disabled current occupation: Retired maintenance department @ [employer] Feels Safe at Home: Yes Safety Concerns: Feels Safe At This Time Review of Systems Review of Systems: All systems reviewed & are unremarkable except as noted in Subjective Physical Exam Constitutional: WD/WN, vitals as above Eyes: PERRL, conjunctivae normal, anicteric sclerae ENMT: external ear and nose normal, oropharynx normal Neck: trachea midline, no thyromegaly Respiratory: normal respiratory effort, lungs clear to auscultation Cardiovascular: RRR, no murmur, no edema Gastrointestinal (Abdomen): normal bowel sounds, soft, nontender, no hepatosplenomegaly Musculoskeletal: no cyanosis or clubbing, extremities motor strength 5/5 Skin: no rashes, warm and dry Neurologic: normal touch/pain/proprioception, CN's II-XI intact bilaterally, deep tendon reflexes 2+ bilaterally, moves all extremities and awake; no focal motor deficits Psychiatric: A+Ox3, euthymic affect Lymphatic: no cervical or axillary lymphadenopathy Results & Data Results & [facility] ([facility]) Vital Signs (Past 12 Hours) Vital Signs Temp Pulse Pulse Resp BP BP Pulse Ox 02/20/20 18:56 36.4 C L 73 18 187/108 H 95 02/20/20 18:36 68 02/20/20 18:15 36.4 C L 69 18 201/115 H 96 02/20/20 17:20 67 21 94 02/20/20 17:10 70 17 94 02/20/20 17:01 68 22 181/84 H 96 02/20/20 17:00 68 21 96 02/20/20 16:51 71 16 96 02/20/20 16:10 68 21 02/20/20 16:01 67 20 94 02/20/20 16:00 66 20 182/102 H 93 02/20/20 15:50 70 18 93 02/20/20 15:40 72 19 94 02/20/20 15:30 69 22 02/20/20 15:29 70 23 172/97 H 02/20/20 15:20 72 23 02/20/20 15:10 71 20 95 02/20/20 15:00 73 22 95 02/20/20 14:53 74 02/20/20 14:30 78 23 02/20/20 14:22 79 22 02/20/20 14:04 36.8 C 84 22 169/69 H 94 Laboratory Results Laboratory Results - last 24 hr 02/20/20 02/20/20 02/20/20 14:13 14:30 14:30 WBC 7.29 RBC 4.75 Hgb 14.1 POC Hgb Hct 40.2 L POC Hct MCV 84.6 MCH 29.7 MCHC 35.1 RDW Std Deviation 43.1 RDW Coeff of Lilia 14.0 Plt Count 160 MPV 10.3 Immature Gran % (Auto) 0.3 Neut % (Auto) 53.5 Lymph % (Auto) 32.6 [place] % (Auto) 9.2 Eos % (Auto) 4.0 Baso % (Auto) 0.4 Neut # (Auto) 3.90 Lymph # (Auto) 2.38 [place] # (Auto) 0.67 H Eos # (Auto) 0.29 Baso # (Auto) 0.03 Immature Gran # (Auto) 0.02 Absolute Nucleated RBC 0.03 H Nucleated RBC % (auto) 0.4 PT 11.3 INR 1.1 APTT 26.2 PTT Ratio 0.9 POC Sodium Sodium POC Potassium Potassium POC Chloride Chloride Carbon Dioxide POC Total CO2 Anion Gap POC Anion Gap POC BUN BUN Creatinine POC Creatinine Est Cr Clr Drug Dosing Est GFR ( Amer) Est GFR (Non-Af Amer) BUN/Creatinine Ratio Glucose POC Glucose 160 H POC Glucose (other) Estimat Average Glucose Hemoglobin A1c Calcium POC Ioniz Calcium Michael Magnesium Total Bilirubin AST ALT Alkaline Phosphatase Troponin I Total Protein Albumin Globulin Albumin/Globulin Ratio 02/20/20 02/20/20 02/20/20 14:30 14:30 14:33 WBC RBC Hgb POC Hgb 13.3 L Hct POC Hct 39 L MCV MCH MCHC RDW Std Deviation RDW Coeff of Lilia Plt Count MPV Immature Gran % (Auto) Neut % (Auto) Lymph % (Auto) [place] % (Auto) Eos % (Auto) Baso % (Auto) Neut # (Auto) Lymph # (Auto) [place] # (Auto) Eos # (Auto) Baso # (Auto) Immature Gran # (Auto) Absolute Nucleated RBC Nucleated RBC % (auto) PT INR APTT PTT Ratio POC Sodium 142 Sodium 142 POC Potassium 3.6 Potassium 3.7 POC Chloride 104 Chloride 109 H Carbon Dioxide 27 POC Total CO2 24 Anion Gap 6.0 POC Anion Gap 19.0 POC BUN 16 BUN 16 Creatinine 1.01 POC Creatinine 0.8 Est Cr Clr Drug Dosing 82.2 Est GFR ( Amer) 85.1 Est GFR (Non-Af Amer) 73.4 BUN/Creatinine Ratio 15.9 Glucose 147 H POC Glucose POC Glucose (other) 149 H Estimat Average Glucose Pending Hemoglobin A1c Pending Calcium 8.7 POC Ioniz Calcium Michael 1.19 Magnesium 2.3 Total Bilirubin 0.9 AST 13 L ALT 19 Alkaline Phosphatase 100 Troponin I < 0.015 Total Protein 6.9 Albumin 3.6 Globulin 3.3 Albumin/Globulin Ratio 1.1 Diagnostic Findings MRI brain IMPRESSION: 1. Questionable punctate focus of restricted diffusion within the left frontal payton radiata. This could represent a punctate acute infarct. 2. No significant change in the extensive periventricular white matter T2 hyperintensity. This could be due to microvascular ischemic change or a demyelinating disease. CTA head and neck IMPRESSION: 1. 1. A 3 mm anterior communicating artery aneurysm. 2. Moderate focal narrowing within the mid right STRIPE MARKER. No arterial occlusion identified within the [place]. 3. Up to 70% narrowing within the proximal right ICA due to the moderate noncalcified up sclerotic plaque at the carotid bulb. Code Status & VTE Plan VTE Prophylaxis Plan VTE Prophylaxis will be ordered: Yes PG Care Time/CCT Total # of Minutes Spent Total Time Spent with Patient: Total time spent is greater than 50% in coordination of care (as documented) at patient's floor/unit and/or counseling patient: Coding Level of Care Code 30299 Initial Inpt Care Lvl 3 Diagnoses Acute CVA (cerebrovascular accident) I63.9 Gait disturbance R26.9 Hypertension I10 Multiple sclerosis G35 COPD (chronic obstructive pulmonary disease) J44.9 Depression with anxiety F41.8 Hypoglycemia E16.2
[2020-02-20] MEDS: INSULIN ASPART 100 UNITS/ML 3 ML PEN SC SCH (22:07)
[2020-02-20] MEDS: HEPARIN SOD 5,000 UNIT/0.5 ML VIAL SQ SCH (22:12)
[2020-02-20] MEDS: GABAPENTIN 300 MG CAP PO SCH (22:13)
[2020-02-20] MEDS: PANTOprazole 40 MG TAB PO SCH (22:13)
[2020-02-21] MEDS: HEPARIN SOD 5,000 UNIT/0.5 ML VIAL SQ SCH ×2 (05:39→14:54)
[2020-02-21 07:09] LABS: Estimated Average Glucose 123 mg/dl; Hemoglobin A1C 5.9 % (4.5-5.6)
[2020-02-21 07:33] LABS: Basophils # (auto) 0.02 K/uL (0-0.2); Basophils % (auto) 0.3 %; Eosinophils # (auto) 0.29 K/uL (0-0.5); Eosinophils % (auto) 4.7 %; Hematocrit (blood only) 37.8 % (42-52); Hemoglobin 13.1 g/dL (14.0-18.0); Immature Granulocytes # (auto) 0.02 K/uL (0.00-0.02); Immature Granulocytes % (auto) 0.3 %; Lymphocytes # (auto) 2.82 K/uL (1.2-3.4); Lymphocytes % (auto) 45.7 %; Mean Corpuscular Hemoglobin 29.5 pg (25-34); Mean Corpuscular Hgb Conc 34.7 g/dL (32-36); Mean Corpuscular Volume 85.1 fL (80-100); Mean Platelet Volume 9.8 fL (7.4-10.4); Monocytes # (auto) 0.64 K/uL (0.11-0.59); Monocytes % (auto) 10.4 %; Neutrophils # (auto) 2.38 K/uL (1.4-6.5); Neutrophils % (auto) 38.6 %; Nucleated RBC # (auto) 0.04 K/uL (0-0); Nucleated RBC % (auto) 0.7 %; Platelet Count 128 K/uL (130-400); RDW Standard Deviation 43.3 fL (36.4-46.3); Red Blood Count 4.44 M/uL (4.7-6.1); White Blood Count 6.17 K/uL (4.8-10.8)
[2020-02-21] MEDS: PANTOprazole 40 MG TAB PO SCH (08:03)
[2020-02-21] MEDS: GABAPENTIN 300 MG CAP PO SCH (08:03)
[2020-02-21 08:04] LABS: BUN Creatinine Ratio 19.2 (10-20); Calcium 8.5 mg/dl (8.5-10.1); Creatinine Clr Calc Pharmacy 94.8 ml/min; Est GFR (African American) 99.2; Est GFR (Non-African American) 85.6; Potassium 3.4 mmol/L (3.5-5.1)
--- NOTE | 2020-02-21 08:39 | Hospitalist Progress Note ---
Date of Service February 21, 2020 Assessment & Plan Admission and Anticipated Discharge Date Admission Date: February 20, 2020 Results & Data Results & Data ([facility]) Vital Signs (Past 12 Hours) Vital Signs Temp Pulse Pulse Pulse Resp BP BP 02/21/20 08:06 36.8 C 67 18 145/80 H 02/21/20 07:40 64 02/21/20 04:00 36.6 C 65 20 132/73 02/21/20 00:12 75 02/20/20 22:54 36.8 C 70 18 184/99 H Pulse Ox 02/21/20 08:06 96 02/21/20 07:40 02/21/20 04:00 92 02/21/20 00:12 02/20/20 22:54 95
[2020-02-21] MEDS: INSULIN ASPART 100 UNITS/ML 3 ML PEN SC SCH ×2 (08:57→12:09)
[2020-02-21] MEDS ORDERED: FLUTICASONE/VILANTEROL 100/25MCG 14 PUFFS/INHALER INH SCH (09:00)
[2020-02-21] MEDS ORDERED: CLOPIDOGREL BISULFATE 75 MG TAB PO SCH (09:00)
[2020-02-21] MEDS ORDERED: POTASSIUM CHLORIDE 20 MEQ TABCR PO STA (10:19)
[2020-02-21] MEDS: SODIUM CHLORIDE 0.9% 1000ML 1,000 ML IV SCH (10:57)
[2020-02-21 11:10] LABS: Appearance Urine Clear (Clear); Bilirubin Urine Negative (Negative); Blood Urine Negative (Negative); Color Urine Yellow; Glucose Urine UA Negative (Negative); Ketones Urine Negative (Negative); Leukocyte Esterase Urine Negative (Negative); Nitrite Urine Negative (Negative); Protein Urine Negative (Negative); Urobilinogen Urine Negative (Negative)
--- NOTE | 2020-02-21 11:40 | Neurology Consultation ---
Date of Consultation February 21, 2020 Assessment & Plan (1) Multiple sclerosis: (2) Transient neurological symptoms: Hammad Ornelas is a 74 yo man w/ PMH of MS on tysabri, depression/anxiety, COPD, HTN, and prediabetes who p/t [facility] with acute onset of L-sided weakness in the setting of hypoglycemia (symptoms improved with glucose treatment). TIA WorkUp: (since symptoms improved with glucose administration, does not technically meet criteria for TIA; most likely represents transient neurological symptoms 2/2 hypoglycemia) - CT head: no hemorrhage, there are hypodensities and bilateral basal ganglia with an area of encephalomalacia noted along the left centrum semiovale and abutting the left caudate head - CTA head/neck: notable for moderate stenosis in the right ICA proximally, moderate focal stenosis of the right P2, 3 mm A-comm aneurysm. - MRI brain: no acute infarct, multiple chronic lacunar infarcts bilaterally, stable MS plaque load. - TTE: pending (can be done as an outpatient as this was pending from Dr Jackson) - Telemetry: pending - A1c: 5.9 - FLP: 112 - Troponin: negative Stroke Management: - Acute treatment: glucose - Continuous cardiac monitoring. Had recent Holter in 01/2020 that showed atrial tachycardia and non-sustained VT. - Vitals, Neurochecks, NIHSS per unit routine - BP parameters: SBP CAP 180, restart home anti-hypertensives - Complete ischemic stroke workup with TTE without bubble - Consult speech, PT, OT for supportive management - Will senior genetic counselor concerning stroke education, smoking cessation, healthy diet, physical activity, weight loss - Follow up with PCP for assistance with outpatient goals (BP <130/80, LDL <70, A1c <7) - Follow up in neurology clinic in 6-8 weeks with MARION Lpoez Secondary Stroke Prevention: - Antiplatelet: continue plavix 75mg daily - Anticoagulation: Not indicated at this time - Statin: Atorvastatin 40mg daily HTN: - BP parameters, as above - Restart home medications with goal of lowering BP to normotension over next 3- 4 days FEN/GI: - Diet: Cardiac HH diet and PO meds given absence of bulbar signs or symptoms - Monitor lytes and replete PRN Glucose Control: - Sliding scale insulin and accuchecks per primary team to avoid hyperglycemia Thank you for this interesting consult. Plan of care was discussed with primary team. Please call with any questions. He is stable for discharge from a neurological standpoint. Advised him to take his BG level if he should have another one of these events in the future. (3) Left-sided weakness: History of Present Illness Attending Physician: Faustino Mccoy DO History of Present Illness Hammad Ornelas is a 74 yo man w/ PMH of MS on tysabri, depression/anxiety, COPD, HTN, and prediabetes who p/t [facility] with acute onset of L-sided weakness in the setting of hypoglycemia (symptoms improved with glucose treatment). TUG HAND ~11am on 02/20/20. In the ED, he reported having similar episodes of intermittent, transient L- sided weakness that has been occurring over the last few weeks. Vitals showed that he was afebrile, BP 169/69, heart rate 84, respiratory rate 22, satting 94% room air. Labs show WBC 7.29, hemoglobin 40.1, platelets 160, electrolytes within normal, creatinine 1.01, glucose 147, INR 1.1, LFTs within normal, troponin negative, UA no infection. Images independently reviewed. CT head shows no hemorrhage, there are hypodensities and bilateral basal ganglia with an area of encephalomalacia noted along the left centrum semiovale and abutting the left caudate head. CTA head and neck notable for moderate stenosis in the right ICA proximally, moderate focal stenosis of the right P2, 3 mm A-comm aneurysm. MRI brain shows no acute infarct, multiple chronic lacunar infarcts bilaterally, stable MS plaque load. On examination today, he reports that he was in his normal state of health until he was out mowing the lawn yesterday and noticed that his tractor Veering to the right. He got up and noticed left-sided weakness. His buddies helped him out and called an ambulance. He was found to have low blood sugar as above and reports that his symptoms got better after getting some sugar. He reports he has had several similar symptoms in the last few weeks. Monitors his blood sugars at home twice a day but does not consistently monitor blood pressure. Reports that he has changed from his aspirin to Plavix as directed by Dr. Jackson. He is not on a statin per his medication list here. Patient Features: Admission NIHSS: 0 Admission Modified [place] Scale: 1 Time patient last seen well: 11am on 02/20/20 Wake up stroke: No Intubation status: Not intubated Stroke Risk Factors: Hypertension: Y Hyperlipidemia: N Atrial Fib: N Tobacco: Y, prior Diabetes: Y Taking NOAC or warfarin: N Allergies Allergy/AdvReac Type Severity Reaction Status Date / Time latex Allergy Unknown unknown Verified 02/20/20 16:19 adhesive AdvReac Intermediate RASH UNDER Verified 02/20/20 16:20 TAPES Home Medications Home Medications Medication Instructions Recorded Confirmed Type albuterol sulfate 2.5 mg INHALATION .Q4-6H PRN 09/05/18 02/20/20 History cyanocobalamin (vitamin B-12) 1,000 mcg PO QAM 09/05/18 02/20/20 History [Vitamin B-12] multivitamin 1 tab PO QAM 09/05/18 02/20/20 History docusate sodium [Stool Softener] 100 mg PO UD PRN 01/08/19 02/20/20 History sennosides-docusate sodium 0 tab PO QPM PRN 01/08/19 02/20/20 History [Senokot-S] cholecalciferol (vitamin D3) 125 5,000 units PO DAILY 03/17/19 02/20/20 History mcg (5,000 unit) capsule fluticasone 500 mcg-salmeterol 50 See Rx Instructions .ROUTE 06/23/19 02/20/20 Rx mcg/dose blistr powdr for .COMPLEX #180 each inhalation losartan 25 mg tablet 25 mg PO DAILY #90 tab 06/30/19 02/20/20 Rx ipratropium 20 mcg-albuterol 100 1 puff INHALATION QID #4 gm 08/11/19 02/20/20 Rx mcg/actuation mist for inhalation polyethylene glycol 3350 17 17 gm PO DAILY PRN #119 gm 10/14/19 02/20/20 Rx gram/dose oral powder clopidogrel 75 mg tablet 75 mg PO DAILY #30 tab 01/14/20 02/20/20 Rx gabapentin 300 mg capsule 300 mg PO BID #180 cap 01/14/20 02/20/20 Rx naproxen 500 mg tablet,delayed 500 mg PO BID PRN #60 tab 01/14/20 02/20/20 Rx release temazepam 15 mg capsule 15 mg PO HS PRN #90 ea 01/14/20 02/20/20 Rx venlafaxine 150 mg 150 mg PO HS 90 Days #90 cap 01/14/20 02/20/20 Rx capsule,extended release 24 hr natalizumab 300 mg/15 mL 300 mg IV MONTHLY 28 Days #15 ml 01/21/20 02/20/20 Rx intravenous solution albuterol sulfate 90 mcg/actuation 2 puff INHALATION Q4H PRN #1 01/26/20 02/20/20 Rx aerosol inhaler inhaler omeprazole 20 mg PO BID 02/20/20 02/20/20 History quetiapine 200 mg PO HS 02/20/20 02/20/20 History Patient History Medical History Acute foreign body of left ear canal Altered mental status COPD (chronic obstructive pulmonary disease) Depression with anxiety Eyebrow laceration Facial abrasion Fall Lumbar radiculopathy Multiple sclerosis Syncope Tinnitus, bilateral Surgical History History of colonoscopy History of open heart surgery S/P cataract surgery S/P tonsillectomy Family History Father , age 78 of cancer (uncertain type) Hypertension Hearing loss Colorectal cancer Mother , age 81 of cancer (uncertain type) Diabetes Hypertension Hearing loss Stroke Breast cancer Sister Hypertension Hearing loss Breast cancer Grandmother (Paternal) Hypertension Brother Hearing loss Social History Smoking Status: Former smoker packs per day: 2; Number of Years Since Quit: 30; Second Hand Exposure: No; Hx Alcohol Use: Yes Alcohol type: beer Hx Substance Use: No Preferred Language: Hungarian Communication Ability: Effective Construction Project Mgr Required: No Beliefs That Will Affect Care: None marital status: / Current Living Situation: Family current occupational status: retired and disabled current occupation: Retired maintenance department @ [employer] Feels Safe at Home: Yes Safety Concerns: Feels Safe At This Time Review of Systems Review of Systems: 14 point review of systems completed and negative except as in HPI. Exam (Neuro) Physical Exam: General Exam: GEN: NAD, sitting/lying down in examination bed. HEENT: No conjunctival injection, no rhinorrhea, moist mucus membranes. CV: RRR on monitor, peripheral pulses 2+ bilaterally, no significant edema. PULM: Nonlabored respirations on room air. Neuro Exam: MS: Awake and Alert. Oriented to person, place, and date. Speech fluent and appropriate without dysarthria or paraphasic errors. Language intact including naming, comprehension, repetition. Cognition and memory grossly intact. Attention intact. No neglect. 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 Normal fundoscopic exam in left eye, unable to fully visualize fundi in right eye. Pupils equal, only left eye reactive. EOMI without nystagmus. Facial sensation intact to LT. Facial muscles full and symmetric. Hearing intact to conversation. Uvula midline with symmetric palatal elevation. Shoulder shrug normal. Tongue midline. MOTOR: Normal bulk and tone. No pronator drift. BUE strength 5/5 at deltoids, biceps, triceps, wrist flexors and extensors, and finger flexors bilaterally. BLE strength 4+/5 at iliopsoas, hamstrings, quadriceps, 5-/5 tibialis anterior, and 5/5 gastrocnemius bilaterally. +tardive dyskinesia noted with his tongue, subtle fine tremor in hands bilaterally. REFLEXES: 1+ at biceps, triceps, brachioradialis, trace patella, and absent Achilles bilaterally. Flexor plantar responses bilaterally. SENSORY: Intact to LT throughout, no extinction to double simultaneous stimuli. Vibration normal in BUEs, diminished in BLEs up to the knees. COORDINATION: No dysmetria or ataxia on [id number] bilaterally. Normal Denisse bilaterally. GAIT: Deferred due to physical status. NIH STROKE SCALE 1A. Level of Consciousness (0-3) = 0 1B. LOC Questions (0-2) = 0 1C. LOC Commands (0-2) = 0 2. Best Horizontal Gaze (0-2) = 0 3. Visual Herzog (0-3) = 0 4. Facial Palsy (0-3) = 0 5. Motor Arm Right (0-4) = 0 Left (0-4) = 0 6. Motor Leg Right (0-4) = 0 Left (0-4) = 0 7. Limb Ataxia (0-2) = 0 8. Sensory (0-2) = 0 9. Best Language (0-3) = 0 10. Dysarthria (0-2) = 0 11. Extinction and Inattention (0-2) = 0 NIHSS TOTAL = 0 Results & Data ([facility]) Vital Signs (Past 12 Hours) Vital Signs Temp Pulse Pulse Resp BP Pulse Ox 02/21/20 11:32 36.8 C 71 20 173/100 H 94 02/21/20 08:06 36.8 C 67 18 145/80 H 96 02/21/20 07:40 64 02/21/20 04:00 36.6 C 65 20 132/73 92 02/21/20 00:12 75 PG Care Time/CCT Total # of Minutes Spent Total Time Spent with Patient: Total time spent is greater than 50% in coordination of care (as documented) at patient's floor/unit and/or counseling patient: Coding Level of Care Code 97082 Initial Inpt Care Lvl 3 Diagnoses Multiple sclerosis G35 Transient neurological symptoms R29.818 Left-sided weakness R53.1
--- NOTE | 2020-02-21 16:26 | Discharge Summary ---
Date of Service February 21, 2020 Admission HPI Per Admitting Provider 74 yo male with history of multiple sclerosis, follows with Dr. Jackson, with recent finding of possible stroke in December 2019 who was brought to the ED due to lethargy, falling to the left and hypoglycemia prior to admission. The history was obtained from his daughter at the bedside. The patient has been "off" for a few months. His gait, his strength have been diminished. He had an MRI of the brain in December per Dr. Jackson that showed 1.2 x 0.6 cm focus of signal abnormality within the left basal ganglia which is new since previous MRI. This demonstrates mild enhancement. The appearance favors a small subacute infarct. However, active demyelination could appear similar. He also had a cervical MRI that showed enhancement in C2, C4 and C5 level. Considered possible stroke in basal ganglia vs MS flare. He completed a Holter monitor and was scheduled for echocardiogram as outpatient. He has continued to have weakness and ambulatory difficulties. He has been under a great deal of stress recently with forec losure on his home, he had to move out, his children have been arguing over property. Today he was riding a cotton ball bagger and was noted to be slumped to the left. His sugar was 64, he was given dextrose and ate a sandwich. His daughter says he is not on any medications for diabetes, was told he was pre-diabetic and he has been trying to eat less carbohydrates. He eats two peanut butter sandwiches in the morning instead of four, eats less sweets, cut out his 11pm snack. In the morning his sugars are 160-180 despite making these changes. In the ED he had CTA head and neck and MRI brain. MRI with new acute stroke in left payton radiata. Asked to admit for stroke work up. Admission Exam Per Admitting Provider Constitutional: WD/WN, vitals as above Eyes: PERRL, conjunctivae normal, anicteric sclerae ENMT: external ear and nose normal, oropharynx normal Neck: trachea midline, no thyromegaly Respiratory: normal respiratory effort, lungs clear to auscultation Cardiovascular: RRR, no murmur, no edema Gastrointestinal (Abdomen): normal bowel sounds, soft, nontender, no hepatosplenomegaly Musculoskeletal: no cyanosis or clubbing, extremities motor strength 5/5 Skin: no rashes, warm and dry Neurologic: normal touch/pain/proprioception, CN's II-XI intact bilaterally, deep tendon reflexes 2+ bilaterally, moves all extremities and awake; no focal motor deficits Psychiatric: A+Ox3, euthymic affect Lymphatic: no cervical or axillary lymphadenopathy Principal Diagnosis hypoglycemia Discharge Exam Constitutional WD/WN, vitals as above Eyes PERRL, conjunctivae normal, anicteric sclerae Respiratory normal respiratory effort, lungs clear to auscultation Cardiovascular RRR, no murmur, no edema Gastrointestinal (Abdomen) normal bowel sounds, soft, nontender, no hepatosplenomegaly Musculoskeletal Slight weakness of LUE vs RUE, but 5/5 over all Neurologic CN's II-XI intact bilaterally (though blind in R eye ) Psychiatric A+Ox3, euthymic affect Discharge Data Allergies Allergy/AdvReac Type Severity Reaction Status Date / Time latex Allergy Unknown unknown Verified 02/20/20 16:19 adhesive AdvReac Intermediate RASH UNDER Verified 02/20/20 16:20 TAPES Consultations 02/20/20 15:17 ED Decision to Admit Stat 02/20/20 18:15 Consult Case Management - Discharge Planning Routine Consult Neurology Routine Ordered Studies 02/20/20 14:22 CT angio head w con Stat CT angio neck with con Stat CT head/brain wo con Stat 02/20/20 15:18 MR brain wo con Stat Hospital Course (1) Left-sided weakness: 74 yo male with history of multiple sclerosis, follows with Dr. Jackson, with recent finding of possible stroke in December 2019 who was brought to the ED due to lethargy, falling to the left and hypoglycemia prior to admission. Weakness, likely secondary to Hypoglycemia -Patient had event the day prior where had noted L sided weakness that resolved with glucose administration -Some concerns for punctate infarcts on L frontal payton radiate on MRI -Neurology Consulted, felt that symptoms more likely secondary to hypoglycemic event -Continued home Plavix -Symptoms of weakness resolved, patient noting that he is at baseline currently. -Patient to follow up with Neurology and PCP after discharge. HTN -Held losartan while inpatient initially to allow for permissive HTN during stroke work up -Continue Losartan upon DC MS -Natalizumab monthly -Continue f/u with Dr. Jackson Depression -Continued Venlafaxine and Seroquel (2) Hypoglycemia: Total Time Total Time Spent Total Time Spent (In Minutes): <30 Discharge Plan Discharge Items Patient Disposition: Home - Self-Care Reason For Visit: STROKE Discharge Diagnosis: Hypoglycemic event Condition on Discharge: Good Activity: Per Instructions section Non-emergency contact: Primary Care Provider and Neurologist Call non-emergency contact if: you have any medication questions and your symptoms worsen Follow-up/Referrals: Jude De La Rosa MD [Primary Care Provider] - Diet: Regular Addtl Attending Provider Instructions: Mr. Ornelas, It was our pleasure caring for you at [facility] from 02/19- 02/21/20 for your TIA vs Hypoglycemic event. Although there was initial concern for a stroke vs TIA in regards to your weakness and symptoms, you were evaluated by our Neurologist and after discussion with them, we believe your symptoms were more likely secondary to a hypoglycemic event giving that your symptoms improved after glucose administration. No acute infarcts were noted on your brain MRI. Please continue to take your home medications as prescribed. Please also follow up with your PCP in the next 2-3 days for assistance with your outpatient goals (BP <130/80, LDL <70, A1c <7). Continue follow up with Dr. Jackson or Viola Hernandez in the neurology clinic. If you have any further questions, please call your PCP or Neurologist. Pending Studies at Discharge: No Stand-Alone Forms: My [facility], Smoking Cessation Medications and DC Order Prescriptions: Continued fluticasone propion-salmeterol 500-50 mcg/dose blister with device See Rx Instructions .ROUTE .COMPLEX Qty: 180 RF: 3 losartan 25 mg tablet 25 mg PO DAILY Qty: 90 RF: 3 Combivent Respimat 20-100 mcg/actuation mist 1 puff inhalation QID Qty: 4 RF: 5 polyethylene glycol 3350 [Miralax] 17 gram/dose powder 17 gm PO DAILY PRN (Reason: constipation) Qty: 119 RF: 2 Tysabri 300 mg/15 mL solution 300 mg IV MONTHLY 28 Days Qty: 15 RF: 10 albuterol sulfate [Ventolin HFA] 90 mcg/actuation HFA aerosol inhaler 2 puff inhalation Q4H PRN (Reason: shortness of breath or wheezing) Qty: 1 RF: 11 cholecalciferol (vitamin D3) 5,000 unit capsule 5,000 units PO DAILY RF: 0 venlafaxine 150 mg capsule,extended release 24hr 150 mg PO HS 90 Days Qty: 90 RF: 1 temazepam 15 mg capsule 15 mg PO HS PRN (Reason: insomnia) Qty: 90 RF: 1 gabapentin 300 mg capsule 300 mg PO BID Qty: 180 RF: 1 clopidogrel 75 mg tablet 75 mg PO DAILY Qty: 30 RF: 2 naproxen [EC-Naproxen] 500 mg tablet,delayed release (DR/EC) 500 mg PO BID PRN (Reason: pain) Qty: 60 RF: 0 multivitamin Tablet 1 tab PO QAM RF: 0 albuterol sulfate 2.5 mg /3 mL (0.083 %) Solution For Nebulization 2.5 mg INHALATION .Q4-6H PRN (Reason: Shortness Of Breath) RF: 0 cyanocobalamin (vitamin B-12) [Vitamin B-12] 1,000 mcg Tablet 1,000 mcg PO QAM RF: 0 sennosides-docusate sodium [Senokot-S] 8.6-50 mg Tablet 0 tab PO QPM PRN (Reason: Constipation) RF: 0 docusate sodium [Stool Softener] 100 mg Capsule 100 mg PO UD PRN (Reason: constipation) RF: 0 omeprazole 20 mg capsule,delayed release(DR/EC) 20 mg PO BID RF: 0 quetiapine 200 mg tablet 200 mg PO HS RF: 0 Discharge Orders: Discharge Order (Routine); Ordered 02/21/20 Ordered By: Bill Dickens/Other Patient Handouts: Hypoglycemia (Low Blood Sugar), Hypertension Stroke Link Admission Data Admit Date/Time: 02/20/20 16:54 Attending Provider: Faustino Mccoy Admit Provider: Ayo Khan Primary Care Provider: Jude De La Rosa Other Providers: Ladarius Fulton ; Ne Erwin ; Ayo Khan Other Interventions: Discharge Summary Assessment (RN) Last Done: 02/21/20 16:31 Supervising Physician Co-Signing Physician Notes I personally examined the patient and verified all marquez points of history and exam, discussed case, and agree with decision making with Dr Brand feeling fine wants to go home neuro input appreciated vitals noted nad heent nc at mmm breathing unlabored no accessory muscles good effort skin no rashes no pallor or icterus symptoms apparently resolved after correcting sugar, neuro reviewed situation and did not feel CVA at play. pt w secondary risk reduction for cerebravascular disease as part of normal plan anyway. stable for home otherwise as above Resident Activity Tracking Resident Involvement: Resident Care Provided Care Provided: Adult Hospital Medicine
--- NOTE | 2020-02-21 16:42 | Electrocardiogram Report ---
Test Reason : Blood Pressure : / mmHG Vent. Rate : 076 BPM Atrial Rate : 076 BPM P-R Int : 174 ms QRS Dur : 102 ms QT Int : 398 ms P-R-T Axes : 045 016 078 degrees QTc Int : 447 ms Normal sinus rhythm Nonspecific ST abnormality Normal ECG When compared with ECG of 08-JAN-2019 11:52, Premature atrial complexes are no longer Present Nonspecific T wave abnormality no longer evident in Inferior leads Confirmed by Marino Larsen ([id number]) on 02/21/2020 4:42:17 PM Referred By: REFERRED SELF Confirmed By:oRn Larsen
--- NOTE | 2020-02-21 20:10 | Billing Data ---
Date of Service February 21, 2020 Coding Level of Care Code D/C Day Management <30 mins
== END 2020-02-21 17:51 | disposition home or self-care (01) ==
LOC: ED 14:02 → INTOOBSV 16:54 → 2W 16:54 → SUATTDRO 16:54 → 2W 17:36

== ENCOUNTER 2020-09-01 20:00 | Inpatient (IN) ==
--- NOTE | 2020-09-01 20:28 | Emergency Department Note ---
Impression & Plan Weakness, Acute dehydration, Fall, CHI (closed head injury) ED Provider Note NAME: JEANIE PARIS AGE: 74 SEX: M : 1945 ARRIVES VIA: Walk-In INFORMANT: Patient, ED PROVIDER(S): Blaise Caal MD Chief Complaint: Fall, weakness HPI: Patient does present from home with whom he lives with his grandson. The p atient does have a history of MS and is followed with Dr. Jackson in [facility]. During this most recent visit the patient has had increasing incontinence and thus was placed on a medication to help with the incontinence. The patient denies fevers, chills, chest pains or shortness of breath. He has had some lightheadedness and dizziness. The patient states he has some associated frontal headache after the fall which was ground-level striking the floor. No LOC. Patient does take Plavix. The daughter at bedside states that the patient has had increasing weakness to where the patient cannot get around even his own trailer. He has been requiring the use of a wheelchair to get around and is not very mobile within the trailer. No cough. Patient's weakness is described as general and not with any focal numbness tingling or weakness. Patient is unsure as to whether or not he has symptoms consistent with an MS flare but denies any visual symptoms. ROS: See HPI for pertinent positives and negatives. A total of 10 systems were reviewed and otherwise negative. Past medical history: See below Surgical history: See below Social history: See below Physical Exam: GENERAL: Fatigued in appearance, wearing mask. NAD, non-toxic. EYE EXAM: Normal conjunctiva. PERRL, no anisocoria and EOM's grossly intact w/o pain. Head: Abrasion of the forehead without obvious contusion or swelling. No obvious deformity. Face: No malocclusion mandibular or maxillary pain. NECK: Supple, no nuchal rigidity, no adenopathy, mild midline discomfort without obvious step-offs. No signs of meningismus. LUNGS: Clear to auscultation. Normal chest wall mechanics. HEART: NSR, no MRG. ABDOMEN: Abdomen soft, non-tender, normo-active bowel sounds, no masses, no rebound or guarding. BACK: No CVA TTP. SKIN: Abrasion noted to the forehead. UPPER EXTREMITIES: Upper extremities are grossly normal. No pain to palpation. No obvious deformity. LOWER EXTREMITIES: Grossly normal, no edema. No pain to palpation. No obvious deformity. NEURO EXAM: A&O x3, cranial nerves II-XII grossly intact, normal speech, moves all 4 extremities on command w/o issue. Differential diagnoses: Infection, dehydration, metabolic abnormality, hypo/hyperglycemia, electrolyte disturbance, anemia, hypoxia, cardiac sources, intracerebral event, toxicologic, neurologic, as well as other pathologies. Course: Patient was seen and evaluated the bedside. Full history physical exam was performed. EKG: Indication: Fall Normal sinus rhythm, rate of 78, normal intervals, normal axis, T wave inversion in aVL. No obvious ST changes. No significant change from comparison EKG February 20, 2020. Imaging Studies: 1 view chest x-ray Port in right chest, no obvious consolidation, pneumothorax or pleural effusion. CT head: No ICH, mass-effect, or edema. Chronic microvascular ischemic changes and multiple chronic appearing lacunar infarcts. CT cervical spine: No fracture. Bulky flowing anterior osteophytes. Moderate degenerative changes. Cardiac monitoring: An order was placed for continuous cardiac monitoring. The monitor shows a rate of 76 with sinus rhythm. MDM: Patient does present concern for weakness and fall. Blood work is obtained along with an EKG troponin CT of the head and cervical spine. Patient does have a white count of 10.8 with virtually normal hemoglobin and platelet count. Patient does have prerenal azotemia. The patient was given IV fluids. Troponin is not detectable. Urine pending. Covid RSV and flu negative. Upon reassessment the patient still has some mild headache and l ightheadedness. Additional IV fluids and medications were ordered. Given the patient's inability to care for self and weakness I did speak with the on-call hospitalist and patient was admitted by Dr. Barrera. Past Med/Surg History Medical History (Updated 09/02/20 @ 00:34 by Blaise Caal MD) Acute foreign body of left ear canal Altered mental status COPD (chronic obstructive pulmonary disease) Depression with anxiety Eyebrow laceration Facial abrasion Fall Lumbar radiculopathy Multiple sclerosis Syncope Tinnitus, bilateral Surgical History History of colonoscopy History of open heart surgery S/P cataract surgery S/P tonsillectomy Family History Father , age 78 of cancer (uncertain type) Hypertension Hearing loss Colorectal cancer Mother , age 81 of cancer (uncertain type) Diabetes Hypertension Hearing loss Stroke Breast cancer Sister Hypertension Hearing loss Breast cancer Grandmother (Paternal) Hypertension Brother Hearing loss Social History Smoking Status: Never smoker packs per day: 2; Years Smoked: 30; Number of Years Since Quit: 30; Second Hand Exposure: No; Hx Alcohol Use: Yes Alcohol type: beer Alcohol Intake Frequency: Monthly or Less Hx Substance Use: No Preferred Language: Ukrainian Communication Ability: Effective Visual Impairment: Limited Hearing Ability: Use of Hearing Aid Assistant Mechanic Required: No Beliefs That Will Affect Care: None marital status: / Current Living Situation: Family current occupational status: retired and disabled current occupation: Retired maintenance department @ [employer] How many Children do You have: 3 Feels Safe at Home: Yes Seatbelt Use: never Sunscreen Use: No Assistive Devices: Cane, Denture - Upper, Glasses, Hearing Aid - Left and Hearing Aid - Right Allergies Allergies Allergy/AdvReac Type Severity Reaction Status Date / Time latex Allergy Unknown unknown Verified 09/01/20 23:12 adhesive AdvReac Intermediate RASH UNDER Verified 09/01/20 23:12 TAPES Home Meds Home Medications Medication Instructions Recorded Confirmed albuterol sulfate 2.5 mg INHALATION .Q4-6H PRN 09/05/18 09/01/20 cyanocobalamin (vitamin B-12) 1,000 mcg PO QAM 09/05/18 09/01/20 [Vitamin B-12] multivitamin 1 tab PO QAM 09/05/18 09/01/20 docusate sodium [Stool Softener] 100 mg PO UD PRN 01/08/19 09/01/20 sennosides-docusate sodium 0 tab PO QPM PRN 01/08/19 09/01/20 [Senokot-S] cholecalciferol (vitamin D3) 125 5,000 unit PO DAILY 09/01/20 09/01/20 mcg (5,000 unit) capsule cholecalciferol (vitamin D3) 25 25 mcg PO DAILY 09/01/20 09/01/20 mcg (1,000 unit) capsule Previous Rx's Medication Instructions Recorded fluticasone 500 mcg-salmeterol 50 See Rx Instructions .ROUTE 06/23/19 mcg/dose blistr powdr for .COMPLEX #180 each inhalation ipratropium 20 mcg-albuterol 100 1 puff INHALATION QID #4 gm 08/11/19 mcg/actuation mist for inhalation polyethylene glycol 3350 17 17 gm PO DAILY PRN #119 gm 10/14/19 gram/dose oral powder albuterol sulfate 90 mcg/actuation 2 puff INHALATION Q4H PRN #1 01/26/20 aerosol inhaler inhaler lansoprazole 30 mg capsule,delayed 30 mg PO DAILY #30 cap 03/03/20 release quetiapine 200 mg tablet 200 mg PO HS 30 Days #30 tab 03/03/20 losartan 50 mg tablet 50 mg PO DAILY #90 tab 04/05/20 atorvastatin 40 mg tablet 40 mg PO QPM #90 tab 05/10/20 natalizumab 300 mg/15 mL 300 mg IV MONTHLY 28 Days #15 ml 05/21/20 intravenous solution temazepam 15 mg capsule 15 mg PO HS PRN #90 cap 06/02/20 venlafaxine 150 mg 150 mg PO HS 90 Days #90 cap 07/14/20 capsule,extended release 24 hr gabapentin 300 mg capsule 300 mg PO BID #180 cap 08/20/20 clopidogrel 75 mg tablet 75 mg PO DAILY #30 tab 08/26/20 tolterodine 4 mg capsule,extended 4 mg PO DAILY 30 Days #30 cap 08/26/20 release 24 hr Results & Data (ED) Vital Signs Vital Signs - 24 hr 09/01/20 20:10 09/01/20 21:30 09/01/20 22:00 Temperature 36.4 C L Temperature Source Temporal Artery Scan Pulse Rate 84 78 76 Respiratory Rate 18 20 22 Respiratory Effort / Characteristics Non-Labored Respiratory Depth Normal Blood Pressure 146/80 H 153/78 H Blood Pressure Mean 102 103 Pulse Oximetry 94 95 100 Oxygen Delivery Method Room Air Room Air Sepsis Recent Fever Within 48 Hours No Sepsis New/Unexplained Change in Mental Status No Sepsis Action Taken by Nursing No Action Required 09/01/20 22:30 09/01/20 23:01 09/01/20 23:30 Temperature Temperature Source Pulse Rate 78 79 83 Respiratory Rate 24 24 21 Respiratory Effort / Characteristics Respiratory Depth Blood Pressure 172/82 H 158/72 H Blood Pressure Mean 112 100 Pulse Oximetry 95 93 96 Oxygen Delivery Method Sepsis Recent Fever Within 48 Hours Sepsis New/Unexplained Change in Mental Status Sepsis Action Taken by Nursing 09/02/20 00:00 Temperature Temperature Source Pulse Rate 76 Respiratory Rate 22 Respiratory Effort / Characteristics Respiratory Depth Blood Pressure 160/80 H Blood Pressure Mean 106 Pulse Oximetry 94 Oxygen Delivery Method Sepsis Recent Fever Within 48 Hours Sepsis New/Unexplained Change in Mental Status Sepsis Action Taken by Nursing Laboratory Data Result diagrams: 09/01/20 21:17 09/01/20 21:17 Lab Results 09/01/20 09/01/20 09/01/20 Range/Units 21:17 21:17 21:17 WBC 10.89 H (4.8-10.8) K/uL RBC 4.58 L (4.7-6.1) M/uL Hgb 13.9 L (14.0-18.0) g/dL Hct 38.8 L (42-52) % MCV 84.7 (80-100) fL MCH 30.3 (25-34) pg MCHC 35.8 (32-36) g/dL RDW Std Deviation 42.8 (36.4-46.3) fL RDW Coeff of Lilia 13.9 (11.5-14.5) % Plt Count 188 (130-400) K/uL MPV 9.3 (7.4-10.4) fL Immature Gran % (Auto) 0.6 % Neut % (Auto) 61.4 % Lymph % (Auto) 21.9 % [place] % (Auto) 13.9 % Eos % (Auto) 1.9 % Baso % (Auto) 0.3 % Neut # (Auto) 6.69 H (1.4-6.5) K/uL Lymph # (Auto) 2.39 (1.2-3.4) K/uL [place] # (Auto) 1.51 H (0.11-0.59) K/uL Eos # (Auto) 0.21 (0-0.5) K/uL Baso # (Auto) 0.03 (0-0.2) K/uL Immature Gran # (Auto) 0.06 H (0.00-0.02) K/uL PT 10.5 (9.0-12.0) Seconds INR 1.0 (0.9-1.1) Sodium 139 (136-145) mmol/L Potassium 4.1 (3.5-5.1) mmol/L Chloride 105 (98-107) mmol/L Carbon Dioxide 31 (21-32) mmol/L Anion Gap 3.0 (3-11) BUN 27 H (7-18) mg/dl Creatinine 1.08 (0.6-1.4) mg/dl Est Cr Clr Drug Dosing Not Reportable Est GFR ( Amer) 78.5 Est GFR (Non-Af Amer) 67.7 BUN/Creatinine Ratio 24.7 H (10-20) Glucose 153 H (70-99) mg/dl Calcium 8.7 (8.5-10.1) mg/dl Magnesium 2.5 H (1.8-2.4) mg/dl Total Bilirubin 1.1 H (0.2-1) mg/dl AST 25 (15-37) U/L ALT 37 (12-78) U/L Alkaline Phosphatase 104 (45-117) U/L Troponin I < 0.015 (0-0.045) ng/ml Total Protein 6.7 (6.4-8.2) gm/dl Albumin 3.2 L (3.4-5.0) gm/dl Globulin 3.5 (2.5-4.0) gm/dl Albumin/Globulin Ratio 0.9 (0.9-2) TSH 1.470 (0.300-4.500) uIu/ml COVID-19 Eval Order SARS-CoV-2 (PCR) (Negative) Influenza Type A (PCR) (Neg) Influenza Type B (PCR) (Neg) RSV (RT-PCR) (Neg) 09/01/20 09/01/20 Range/Units 21:17 21:17 WBC (4.8-10.8) K/uL RBC (4.7-6.1) M/uL Hgb (14.0-18.0) g/dL Hct (42-52) % MCV (80-100) fL MCH (25-34) pg MCHC (32-36) g/dL RDW Std Deviation (36.4-46.3) fL RDW Coeff of Lilia (11.5-14.5) % Plt Count (130-400) K/uL MPV (7.4-10.4) fL Immature Gran % (Auto) % Neut % (Auto) % Lymph % (Auto) % [place] % (Auto) % Eos % (Auto) % Baso % (Auto) % Neut # (Auto) (1.4-6.5) K/uL Lymph # (Auto) (1.2-3.4) K/uL [place] # (Auto) (0.11-0.59) K/uL Eos # (Auto) (0-0.5) K/uL Baso # (Auto) (0-0.2) K/uL Immature Gran # (Auto) (0.00-0.02) K/uL PT (9.0-12.0) Seconds INR (0.9-1.1) Sodium (136-145) mmol/L Potassium (3.5-5.1) mmol/L Chloride (98-107) mmol/L Carbon Dioxide (21-32) mmol/L Anion Gap (3-11) BUN (7-18) mg/dl Creatinine (0.6-1.4) mg/dl Est Cr Clr Drug Dosing Est GFR ( Amer) Est GFR (Non-Af Amer) BUN/Creatinine Ratio (10-20) Glucose (70-99) mg/dl Calcium (8.5-10.1) mg/dl Magnesium (1.8-2.4) mg/dl Total Bilirubin (0.2-1) mg/dl AST (15-37) U/L ALT (12-78) U/L Alkaline Phosphatase (45-117) U/L Troponin I (0-0.045) ng/ml Total Protein (6.4-8.2) gm/dl Albumin (3.4-5.0) gm/dl Globulin (2.5-4.0) gm/dl Albumin/Globulin Ratio (0.9-2) TSH (0.300-4.500) uIu/ml COVID-19 Eval Order CovFluRsv at [facility] SARS-CoV-2 (PCR) NEGATIVE (Negative) Influenza Type A (PCR) Negative (Neg) Influenza Type B (PCR) Negative (Neg) RSV (RT-PCR) Negative (Neg) Administered Medications Discontinued Medications Acetaminophen (Acetaminophen 325 Mg Tab) 650 mg PO NOW STA Stop: 09/01/20 20:49 Last Admin: 09/01/20 21:29 Dose: 650 mg Documented by: [id number] Diphenhydramine HCl (Diphenhydramine 50 Mg/Ml Vial) 12.5 mg IV NOW STA Stop: 09/01/20 23:13 Last Admin: 09/01/20 23:26 Dose: 12.5 mg Documented by: [id number] Sodium Chloride (Nss 1000ml) 1,000 mls @ 999 mls/hr IV .Q1H1M MUKUL Stop: 09/01/20 22:00 Last Infusion: 09/01/20 22:30 Dose: 0 mls/hr Documented by: [id number] Admin: 09/01/20 21:29 Dose: 999 mls/hr Documented by: [id number] Sodium Chloride (Nss 1000ml) 1,000 mls @ 999 mls/hr IV .Q1H1M ONE Stop: 09/02/20 00:12 Last Admin: 09/01/20 23:27 Dose: 999 mls/hr Documented by: [id number] Prochlorperazine (Compazine) 1 mls @ 1 mls/min IV ONE ONE Stop: 09/01/20 23:13 Last Admin: 09/01/20 23:27 Dose: 1 mls/min Documented by: [id number] Morphine Sulfate (Morphine Sulfate 2 Mg/Ml Carp) 2 mg IV NOW STA Stop: 09/01/20 20:49 Last Admin: 09/01/20 21:29 Dose: 2 mg Documented by: [id number] Ondansetron HCl (Ondansetron Inj 2 Mg/Ml 2 Ml Vial) 4 mg IV NOW STA Stop: 09/01/20 20:49 Last Admin: 09/01/20 21:29 Dose: 4 mg Documented by: [id number] Discharge Plan Visit Data Chief Complaint: Fall Stated Complaint: FALL, HEADACHE, PAINS ED Provider: Blaise Caal Discharge Problem: Weakness, Acute dehydration, Fall, CHI (closed head injury) Forms Stand Alone Forms: [facility] Prescriptions Prescriptions: No Action fluticasone propion-salmeterol 500-50 mcg/dose blister with device See Rx Instructions .ROUTE .COMPLEX Qty: 180 RF: 3 Combivent Respimat 20-100 mcg/actuation mist 1 puff inhalation QID Qty: 4 RF: 5 polyethylene glycol 3350 [Miralax] 17 gram/dose powder 17 gm PO DAILY PRN (Reason: constipation) Qty: 119 RF: 2 albuterol sulfate [Ventolin HFA] 90 mcg/actuation HFA aerosol inhaler 2 puff inhalation Q4H PRN (Reason: shortness of breath or wheezing) Qty: 1 RF: 11 quetiapine 200 mg tablet 200 mg PO HS 30 Days Qty: 30 RF: 5 atorvastatin 40 mg tablet 40 mg PO QPM Qty: 90 RF: 3 Tysabri 300 mg/15 mL solution 300 mg IV MONTHLY 28 Days Qty: 15 RF: 10 temazepam 15 mg capsule 15 mg PO HS PRN (Reason: sleep) Qty: 90 RF: 1 venlafaxine 150 mg capsule,extended release 24hr 150 mg PO HS 90 Days Qty: 90 RF: 1 gabapentin 300 mg capsule 300 mg PO BID Qty: 180 RF: 1 clopidogrel 75 mg tablet 75 mg PO DAILY Qty: 30 RF: 5 tolterodine 4 mg capsule,extended release 24hr 4 mg PO DAILY 30 Days Qty: 30 RF: 3 cholecalciferol (vitamin D3) 125 mcg (5,000 unit) capsule 5,000 unit PO DAILY RF: 0 losartan 50 mg tablet 50 mg PO DAILY Qty: 90 RF: 3 cholecalciferol (vitamin D3) 25 mcg (1,000 unit) capsule 25 mcg PO DAILY RF: 0 lansoprazole [Prevacid] 30 mg capsule,delayed release(DR/EC) 30 mg PO DAILY Qty: 30 RF: 11 multivitamin Tablet 1 tab PO QAM RF: 0 albuterol sulfate 2.5 mg /3 mL (0.083 %) Solution For Nebulization 2.5 mg INHALATION .Q4-6H PRN (Reason: Shortness Of Breath) RF: 0 cyanocobalamin (vitamin B-12) [Vitamin B-12] 1,000 mcg Tablet 1,000 mcg PO QAM RF: 0 sennosides-docusate sodium [Senokot-S] 8.6-50 mg Tablet 0 tab PO QPM PRN (Reason: Constipation) RF: 0 docusate sodium [Stool Softener] 100 mg Capsule 100 mg PO UD PRN (Reason: constipation) RF: 0 Discharge Problem: Fall Qualifiers: Encounter type: initial encounter Qualified Code(s): W19.XXXA - Unspecified fall, initial encounter CHI (closed head injury) Qualifiers: Encounter type: initial encounter Qualified Code(s): S09.90XA - Unspecified injury of head, initial encounter
[2020-09-01] MEDS ORDERED: ONDANSETRON INJ 2 MG/ML 2 ML VIAL IV STA (20:48)
[2020-09-01] MEDS ORDERED: MoRPHine SULFATE 2 MG/ML CARP IV STA (20:48)
[2020-09-01] MEDS ORDERED: ACETAMINOPHEN 325 MG TAB PO STA (20:48)
[2020-09-01] MEDS ORDERED: SODIUM CHLORIDE 0.9% 1000ML 1,000 ML IV SCH (21:00)
[2020-09-01 21:33] LABS: Basophils # (auto) 0.03 K/uL (0-0.2); Basophils % (auto) 0.3 %; Eosinophils # (auto) 0.21 K/uL (0-0.5); Eosinophils % (auto) 1.9 %; Hematocrit (blood only) 38.8 % (42-52); Hemoglobin 13.9 g/dL (14.0-18.0); Immature Granulocytes # (auto) 0.06 K/uL (0.00-0.02); Immature Granulocytes % (auto) 0.6 %; Lymphocytes # (auto) 2.39 K/uL (1.2-3.4); Lymphocytes % (auto) 21.9 %; Mean Corpuscular Hemoglobin 30.3 pg (25-34); Mean Corpuscular Hgb Conc 35.8 g/dL (32-36); Mean Corpuscular Volume 84.7 fL (80-100); Mean Platelet Volume 9.3 fL (7.4-10.4); Monocytes # (auto) 1.51 K/uL (0.11-0.59); Monocytes % (auto) 13.9 %; Neutrophils # (auto) 6.69 K/uL (1.4-6.5); Neutrophils % (auto) 61.4 %; Platelet Count 188 K/uL (130-400); RDW Coefficient of Variation 13.9 % (11.5-14.5); RDW Standard Deviation 42.8 fL (36.4-46.3); Red Blood Count 4.58 M/uL (4.7-6.1); White Blood Count 10.89 K/uL (4.8-10.8)
[2020-09-01 21:41] LABS: Prothrombin Time 10.5 Seconds (9.0-12.0)
[2020-09-01 21:50] LABS: Alanine Aminotransferase 37 U/L (12-78); Albumin Level 3.2 gm/dl (3.4-5.0); Aspartate Aminotransferase 25 U/L (15-37); BUN Creatinine Ratio 24.7 (10-20); Blood Urea Nitrogen 27 mg/dl (7-18); Calcium 8.7 mg/dl (8.5-10.1); Carbon Dioxide 31 mmol/L (21-32); Chloride 105 mmol/L (98-107); Est GFR (African American) 78.5; Est GFR (Non-African American) 67.7; Glucose 153 mg/dl (70-99); Magnesium 2.5 mg/dl (1.8-2.4); Potassium 4.1 mmol/L (3.5-5.1); Sodium 139 mmol/L (136-145)
[2020-09-01 22:00] LABS: Albumin Globulin Ratio 0.9 (0.9-2); Alkaline Phosphatase 104 U/L (45-117); Bilirubin,Total 1.1 mg/dl (0.2-1); Globulin 3.5 gm/dl (2.5-4.0); Total Protein 6.7 gm/dl (6.4-8.2); Troponin I < 0.015 ng/ml (0-0.045)
[2020-09-01 22:46] LABS: Influenza A virus by PCR Negative (Neg); Influenza B virus by PCR Negative (Neg); RSV by PCR Negative (Neg); SARS CoV2 RNA(COVID-19) InHosp NEGATIVE (Negative)
[2020-09-01] MEDS ORDERED: SODIUM CHLORIDE 0.9% 1000ML 1,000 ML IV ONE (23:12)
[2020-09-01] MEDS ORDERED: diphenhydrAMINE 50 MG/ML VIAL IV STA (23:12)
[2020-09-01] MEDS ORDERED: PROCHLORPERAZINE 1 ML IV ONE (23:12)
--- NOTE | 2020-09-02 01:02 | History & Physical Report ---
Date of Service September 02, 2020 Assessment & Plan (1) Fall: Patient with progressive functional decline. Most likely multifactorial including effects of grief, possible effects of Covid-19 vaccination. Leukocytosis with neutrophil predominance raises concern for infectious process - UA has not yet been collected. ?Progression of MS, ?COLLEEN Virus - patient has history of this. Fall with head trauma - patient is on Plavix. He is complaining of mild PRESCOTT and photophobia. Neurological exam is unremarkable. CT head is WNL -Admit to medical -Check UA -check MRI Brain -Will hold off on steroids for now until results from above studies -Neurology consultation appreciated -Neuro checks with [facility] q 4 hours Present on Admission?: Yes (2) Weakness: Patient reports diffuse weakness. Possiblyl secondary to MS flare vs infectious process. Remainder of laboratory workup is unremarkable - electrolytes, renal function and liver studies are WNL -Check UA -MRI as above Present on Admission?: Yes (3) Hypertension: Chronic. Stable -Continue Losartan 50mg po daily Present on Admission?: Yes (4) COPD (chronic obstructive pulmonary disease): Chronic. Stable. No SOB, Cough or wheeze. Adequate oxygenation on room air -Continue Albuterol PRN -Continue Combivent Present on Admission?: Yes (5) Multiple sclerosis: Patient on Natalizumab monthly. He follows with [facility] Neurology - last seen in clinic yesterday 09/01/20 -Continue Tolterodine -Continue Gabapentin Present on Admission?: Yes (6) Depression with anxiety: Chronic. Stable -Continue Venlafaxine -Continue Seroquel qHS -Continue Temazepam qHS Present on Admission?: Yes (7) Gastro-esophageal reflux: Chronic. Stable -Pepcid while inpatient -May resume Prevacid on discharge Present on Admission?: Yes (8) Hemiparesis affecting right side as late effect of cerebrovascular accident: Patient with chronic left sided deficit following CVA. Stable and unchanged -Continue Atorvastatin -Continue Plavix F/E/N - Heplock. Encourage PO intake. Regular diet as tolerated. Bowel regimen Ppx - SCDs Code - Full Dispo - Observation to medical Present on Admission?: Yes History of Present Illness Chief Complaint: Fall Primary Care Provider: Jude De La Rosa MD Hammad Ornelas is a 74yo C male with history of MS on Natalizumab infusion q monthly presenting from home after a fall. Patient's daughter is at bedside and provides majority of the history. She reports that patient has had a fairly steady functional decline over the last 2-3 weeks. He has had increased fatigue as well as gait instability. He has had several falls. He has also had urinary incontinence and was recently started on tolterodine. Patient lives in a trailer with his grandson. He has been needing to use his wheelchair more often lately. Patient was seen in Neurology clinic today with the above complaints. Lab studies were recommended to rule out metabolic cause for functional decline. Patient returned home after his visit and around 19:00 he had a fall in his home. He reports he simply lost his balance and fell on his face. He does not think he lost consciousness. No report of chest pain, palpitations, incontinence, nausea or dizziness. Patient with prior CVA with left sided deficit - he denies new or worsening numbness, tingling or weakness. He has a mild headache with photophobia. Patient received his second Covid shot on 08/20. His son recently secondary to aggressive Head and Neck cancer Allergies Allergy/AdvReac Type Severity Reaction Status Date / Time latex Allergy Unknown unknown Verified 09/01/20 23:12 adhesive AdvReac Intermediate RASH UNDER Verified 09/01/20 23:12 TAPES Home Medications Medication Instructions Recorded Confirmed Type albuterol sulfate 2.5 mg INHALATION .Q4-6H PRN 09/05/18 09/01/20 History cyanocobalamin (vitamin B-12) 1,000 mcg PO QAM 09/05/18 09/01/20 History [Vitamin B-12] multivitamin 1 tab PO QAM 09/05/18 09/01/20 History docusate sodium [Stool Softener] 100 mg PO UD PRN 01/08/19 09/01/20 History sennosides-docusate sodium 0 tab PO QPM PRN 01/08/19 09/01/20 History [Senokot-S] fluticasone 500 mcg-salmeterol 50 See Rx Instructions .ROUTE 06/23/19 09/01/20 Rx mcg/dose blistr powdr for .COMPLEX #180 each inhalation ipratropium 20 mcg-albuterol 100 1 puff INHALATION QID #4 gm 08/11/19 09/01/20 Rx mcg/actuation mist for inhalation polyethylene glycol 3350 17 17 gm PO DAILY PRN #119 gm 10/14/19 09/01/20 Rx gram/dose oral powder albuterol sulfate 90 mcg/actuation 2 puff INHALATION Q4H PRN #1 01/26/20 09/01/20 Rx aerosol inhaler inhaler lansoprazole 30 mg capsule,delayed 30 mg PO DAILY #30 cap 03/03/20 09/01/20 Rx release quetiapine 200 mg tablet 200 mg PO HS 30 Days #30 tab 03/03/20 09/01/20 Rx losartan 50 mg tablet 50 mg PO DAILY #90 tab 04/05/20 09/01/20 Rx atorvastatin 40 mg tablet 40 mg PO QPM #90 tab 05/10/20 09/01/20 Rx natalizumab 300 mg/15 mL 300 mg IV MONTHLY 28 Days #15 ml 05/21/20 09/01/20 Rx intravenous solution temazepam 15 mg capsule 15 mg PO HS PRN #90 cap 06/02/20 09/01/20 Rx venlafaxine 150 mg 150 mg PO HS 90 Days #90 cap 07/14/20 09/01/20 Rx capsule,extended release 24 hr gabapentin 300 mg capsule 300 mg PO BID #180 cap 08/20/20 09/01/20 Rx clopidogrel 75 mg tablet 75 mg PO DAILY #30 tab 08/26/20 09/01/20 Rx tolterodine 4 mg capsule,extended 4 mg PO DAILY 30 Days #30 cap 08/26/20 09/01/20 Rx release 24 hr cholecalciferol (vitamin D3) 125 5,000 unit PO DAILY 09/01/20 09/01/20 History mcg (5,000 unit) capsule cholecalciferol (vitamin D3) 25 25 mcg PO DAILY 09/01/20 09/01/20 History mcg (1,000 unit) capsule Past Med/Surg History Medical History (Updated 09/02/20 @ 00:56 by Thea Barrera DO) Acute foreign body of left ear canal Altered mental status COPD (chronic obstructive pulmonary disease) Depression with anxiety Eyebrow laceration Facial abrasion Fall Lumbar radiculopathy Multiple sclerosis Syncope Tinnitus, bilateral Surgical History History of colonoscopy History of open heart surgery S/P cataract surgery S/P tonsillectomy Family History Father , age 78 of cancer (uncertain type) Hypertension Hearing loss Colorectal cancer Mother , age 81 of cancer (uncertain type) Diabetes Hypertension Hearing loss Stroke Breast cancer Sister Hypertension Hearing loss Breast cancer Grandmother (Paternal) Hypertension Brother Hearing loss Social History Smoking Status: Never smoker packs per day: 2; Years Smoked: 30; Number of Years Since Quit: 30; Second Hand Exposure: No; Hx Alcohol Use: Yes Alcohol type: beer Alcohol Intake Frequency: Monthly or Less Hx Substance Use: No Preferred Language: Urdu Communication Ability: Effective Visual Impairment: Limited Hearing Ability: Use of Hearing Aid Biology Professor Required: No Beliefs That Will Affect Care: None marital status: / Current Living Situation: Family current occupational status: retired and disabled current occupation: Retired maintenance department @ [employer] How many Children do You have: 3 Feels Safe at Home: Yes Seatbelt Use: never Sunscreen Use: No Assistive Devices: Cane, Denture - Upper, Glasses, Hearing Aid - Left and Hearing Aid - Right Review of Systems Review of Systems: All systems reviewed & are unremarkable except as noted in HPI & below Physical Exam Physical Exam: General: patient resting comfortably, NAD, chronically ill in appearance, AA&O x 4 Skin: warm, dry HEENT: Abrasion on right forehead as well as older appearing bruise on right forehead, PERRL, EOMI, anicteric sclera, conjunctiva without injection, external ear normal to inspection and nontender, nares patent, moist mucus membranes, dentition intact, no oropharyngeal lesions, neck supple, trachea midline, no LAD, no thyromegaly, no JVD Heart: +S1/S2, regular, 3/6 MARA across precordium Lungs: equal air entry bilaterally, no rales/rhonchi/wheezes Abd: +BS, soft, NT, distended and tympanic to percussion, no masses/organomegaly/ascites Ext: warm, 2+ pulses in UE/LE bilaterally, no clubbing/cyanosis or edema Neuro: nonfocal, patient AA&O x 4, speech intact, no facial droop, weakness LUE and LLE 4/5 Results & Data Results & Data ([facility]) Vital Signs (Past 12 Hours) Vital Signs Temp Pulse Resp BP Pulse Ox 09/02/20 00:00 76 22 160/80 H 94 09/01/20 23:30 83 21 158/72 H 96 09/01/20 23:01 79 24 172/82 H 93 09/01/20 22:30 78 24 95 09/01/20 22:00 76 22 100 09/01/20 21:30 78 20 153/78 H 95 09/01/20 20:10 36.4 C L 84 18 146/80 H 94 PG Care Time/CCT Total # of Minutes Spent Total Time Spent with Patient: Total time spent is greater than 50% in coordination of care (as documented) at patient's floor/unit and/or counseling patient: Coding Level of Care Code 87794 OBS Care - Level 3 Diagnoses Fall W19.XXXA Encounter type: initial encounter Weakness R53.1 Hypertension I10 Hypertension type: essential hypertension COPD (chronic obstructive pulmonary disease) J44.9 COPD type: unspecified COPD Multiple sclerosis G35 Depression with anxiety F41.8 Gastro-esophageal reflux K21.9 Esophagitis presence: esophagitis presence not specified Hemiparesis affecting right side as late effect of cerebrovascular accident I69.351 (1) Fall Encounter type: initial encounter Qualified Code(s): W19.XXXA - Unspecified fall, initial encounter (2) Hypertension Hypertension type: essential hypertension Qualified Code(s): I10 - Essential (primary) hypertension (3) COPD (chronic obstructive pulmonary disease) COPD type: unspecified COPD Qualified Code(s): J44.9 - Chronic obstructive pulmonary disease, unspecified (4) Gastro-esophageal reflux Esophagitis presence: esophagitis presence not specified Qualified Code(s): K21.9 - Gastro-esophageal reflux disease without esophagitis
[2020-09-02] MEDS ORDERED: TEMAZEPAM 15 MG CAPSULE PO PRN (01:44)
[2020-09-02] MEDS ORDERED: ALBUTEROL 0.083% NEBU SOLN 3 ML VIAL INH PRN (01:44)
[2020-09-02] MEDS ORDERED: POLYETHYLENE (MIRALAX) 17 GM PACK PO PRN (01:44)
[2020-09-02] MEDS ORDERED: LORazepam 1 MG/2 ML VIAL IV STA (02:32)
[2020-09-02 03:31] LABS: Appearance Urine Cloudy (Clear); Bacteria Urine Automated 4+ (Negative); Bilirubin Urine Negative (Negative); Blood Urine 2+ (Negative); Color Urine Yellow; Glucose Urine UA Negative (Negative); Ketones Urine Negative (Negative); Leukocyte Esterase Urine 2+ (Negative); Nitrite Urine Positive (Negative); Protein Urine 1+ (Negative); RBC Urine Automated 0-4 /hpf (0-4); Specific Gravity Urine 1.018 (1.000-1.030); Urobilinogen Urine Negative (Negative); WBC Urine Automated >30 /hpf (0-5)
[2020-09-02] MEDS ORDERED: GADOBUTROL 65ML VIAL IV ONE ×2 (04:22→22:48)
--- NOTE | 2020-09-02 07:23 | CT Scan Report ---
HEAD CT NONCONTRAST CT DOSE: HISTORY: fall TECHNIQUE: Multiaxial CT images of the head were performed without the use of intravenous contrast. A utomated exposure control was utilized for this study. A dose lowering technique was utilized adheri ng to the principles of ALARA. Comparison: Head CT 02/20/2020. Findings: The paranasal sinuses and mastoid air cells are clear. The calvarium and skull base are int act. There is no mass, hematoma, midline shift, acute infarct. White matter hypodensity is nonspecifi c but suggestive of microvascular ischemic change. The ventricles and sulci demonstrate mild age-rela debi involutional changes. Mild frontal scalp swelling. Old lacunar infarct seen within the periventri cular white matter and bilateral basal ganglia. There are also old lacunar infarct seen within the bi lateral thalami. This remains unchanged. Impression: 1. No acute intracranial abnormality. 2. Mild frontal scalp swelling. 3. Old infarcts are again noted. ACT 112: Negative or not required by law. Electronically signed by: Augie Fernandez M.D. 09/02/2020 7:21 AM
--- NOTE | 2020-09-02 07:28 | CT Scan Report ---
CT SCAN OF THE CERVICAL SPINE CLINICAL HISTORY: Fall. COMPARISON STUDY: CT of the cervical spine dated 09/30/2009. CT angiogram of the neck dated 02/20/2020 . TECHNIQUE: CT scan of the cervical spine is performed from the skull base to the upper thoracic spine . Images are reviewed in the axial, sagittal, and coronal planes. IV contrast was not administered fo r this examination. A dose lowering technique was utilized adhering to the principles of ALARA. CT DOSE: 1512.52 mGy.cm FINDINGS: Skeletal structures: The skeletal structures are osteopenic. There is no evidence of fracture or subl uxation involving the cervical spine. Vertebral body height and alignment are maintained. There are l arge flowing anterior osteophytes throughout the cervical spine as well as straightening of cervical lordosis. The odontoid process and lateral masses are intact. The atlantoaxial articulation is preser ronda noting productive degenerative change. The spinous processes appear intact. There is moderate mul tilevel cervical spondylosis. Uncovertebral and facet arthropathy contribute to neural foraminal sten osis at several levels. Intervertebral discs: There is mild to moderate disc space narrowing at most cervical levels with par tial ossification of the discs. Central canal: Grossly patent. Soft tissues: The prevertebral and paraspinous soft tissues are within normal limits. Calvarium: The visualized calvarium at the skull base appears intact. Brain parenchyma: Partially visualized brain parenchyma at the skull base is within normal limits. Sinuses and mastoids: The visualized paranasal sinuses are clear. The mastoid air cells are well pneu matized. Lung apices: Clear as visualized. IMPRESSION: 1. There is no evidence of fracture or subluxation involving the cervical spine. 2. Large flowing anterior osteophytes and spondylotic change as above. ACT 112: Negative or not required by law. Electronically signed by: Ralf Chance M.D. 09/02/2020 7:27 AM
--- NOTE | 2020-09-02 08:15 | XRay Report ---
XR chest 1V portable HISTORY: weakness COMPARISON: Chest 02/20/2020. FINDINGS: No pneumothorax. No pleural effusions. There is a right subclavian Port-A-Cath which termin ates in the SVC. The heart is normal in size. There is mild diffuse interstitial thickening, unchange d. This is likely chronic. Left basilar linear densities favor subsegmental atelectasis. No new focal lung consolidations to suggest pneumonia. IMPRESSION: Stable mild diffuse interstitial thickening. This is likely chronic. No new focal lung consolidations to suggest pneumonia. ACT 112: Negative or not required by law. Electronically signed by: Augie Fernandez M.D. 09/02/2020 8:14 AM
[2020-09-02] MEDS: IPRATROPIUM BROMIDE HFA INHALER INH SCH ×4 (08:55→20:28)
[2020-09-02] MEDS: ALBUTEROL HFA 8 GM INHALER INH SCH ×4 (08:55→20:28)
[2020-09-02] MEDS: LOSARTAN POTASSIUM 50 MG TAB PO SCH (08:59)
[2020-09-02] MEDS: GABAPENTIN 300 MG CAP PO SCH ×2 (08:59→20:02)
[2020-09-02] MEDS: FAMOTIDINE 40 MG TABLET PO SCH (09:00)
[2020-09-02] MEDS: TOLTERODINE TARTRATE LA 4 MG CAPCR PO SCH (09:00)
[2020-09-02] MEDS: CLOPIDOGREL BISULFATE 75 MG TAB PO SCH (09:00)
--- NOTE | 2020-09-02 09:01 | Magnetic Resonance Report ---
Brain MRI WITH AND WITHOUT CONTRAST HISTORY: worsening balance TECHNIQUE: Multiplanar multisequence MRI of the brain was performed both before and after the intrave nous administration of contrast. COMPARISON STUDY: Head CT 09/01/2020. Brain MRI 12/29/2019. FINDINGS: No areas of restricted diffusion to suggest acute infarction. The midline structures are in tact. The paranasal sinuses and left mastoid air cells are clear. Trace right mastoid effusion. The m ajor vascular flow-voids at the skull base are maintained. Mild frontal scalp swelling is again noted . There is no mass, hematoma, midline shift. Multiple old periventricular, bilateral basal ganglia, b ilateral thalami lacunar infarcts are again noted. No change in the patchy periventricular white babatunde er T2 hyperintensity. This favors moderate microvascular ischemic change. A demyelinating disease cou ld also have a similar appearance. Postcontrast sequences show no areas of abnormal enhancement. IMPRESSION: 1. No acute infarct. 2. Multiple old lacunar infarcts seen within the periventricular white matter, bilateral basal gangli a, and bilateral thalami. 3. No change in the patchy periventricular white matter T2 hyperintensity.. 4. Mild frontal scalp swelling. ACT 112: Negative or not required by law. Electronically signed by: Augie Fernandez M.D. 09/02/2020 8:59 AM
[2020-09-02] MEDS: FLUTICASONE/VILANTEROL 100/25MCG 14 PUFFS/INHALER INH SCH (09:02)
[2020-09-02] MEDS: cefTRIAXone SODIUM 1,000 MG in DEXTROSE 5% 50 ML IV SCH (10:17)
--- NOTE | 2020-09-02 10:27 | Neurology Consultation ---
Date of Consultation September 02, 2020 Assessment & Plan (1) Multiple sclerosis: (2) H/O: stroke: Longstanding history of multiple sclerosis, could be primary progressive type. No evidence of true relapse, or new or active lesion on brain MRI. Patient is probably experiencing pseudoprogression of his chronic demyelinating disease. It looks like he has a urinary tract infection. I would not recommend treatment with corticosteroids for an MS relapse at this point in time. I will order an MRI of the cervical and thoracic spine to further assess the status of his demyelinating disease. It looks like the patient has been started on an antibiotic which is appropriate. As he has been on Tysabri for many years and is reportedly COLLEEN virus antibody positive, it may be worthwhile to consider switching from Tysabri to Ocrevus. This determination can be made in the outpatient setting. He should continue with his other medications including tolterodine for urge incontinence, Effexor and Seroquel for mood, gabapentin for chronic pain, and temazepam for chronic insomnia. Should also continue with Plavix for secondary stroke risk reduction. History of Present Illness Reason for Consultation: Multiple sclerosis, frequent falls Requesting Physician: Thea Barrera Attending Physician: Malik Moreno MD History of Present Illness The patient is a 74-year-old male with a history of multiple sclerosis diagnosed about 15 years ago who has been following with Dr. Jackson and January Hernandez. He has been on Tysabri for 10 years, he is COLLEEN virus antibody positive. His MS has been characterized by slow progressive decline in ambulatory function, essentially wheelchair-bound, and neurogenic bladder. No history of optic neuritis, at least as far as patient can recall. He has complained of some mild memory difficulty previously but did do well on a mini cognitive test this past April. He was evaluated by January Hernandez in neurology clinic yesterday for ongoing functional decline in the context of his multiple sclerosis, progressive leg weakness, falls as well as poor p.o. intake and perhaps some changes in mood as well. He received his second Covid vaccination 2 weeks ago. He has also complained of low energy and weight loss. He was recently started on tolterodine for urge incontinence. He is also prescribed Effexor and Seroquel for mood, gabapentin for chronic pain, and temazepam for insomnia. He receives monthly Tysabri infusions, last infusion was on August 11, 2020. The patient presented to the emergency department yesterday after a fall at home, that occurred after his evaluation with January Hernandez in neurology clinic. He did strike the right frontal area of his head and has some mild associated bruising. There was no associated loss of consciousness. In addition to the above history, he is also prescribed Plavix given a history of small left frontal ischemic infarct identified on MRI this past February. A CT of the head was negative for hemorrhage. A CT of the cervical spine was negative for fracture or subluxation. A contrast-enhanced MRI of the brain was negative for acute or subacute infarct. No abnormal postcontrast enhancement or evidence of active demyelination. There are multiple old lacunar infarcts within the periventricular white matter, bilateral basal ganglia, and bilateral thalami. These findings were observed by the interpreting radiologist. I reviewed the images as well and agree. Some of the observed chronic lacunar infarcts could be consistent with chronic MS lesions or "black holes." Allergies Allergy/AdvReac Type Severity Reaction Status Date / Time latex Allergy Unknown unknown Verified 09/01/20 23:12 adhesive AdvReac Intermediate RASH UNDER Verified 09/01/20 23:12 TAPES Home Medications Medication Instructions Recorded Confirmed Type albuterol sulfate 2.5 mg INHALATION .Q4-6H PRN 09/05/18 09/01/20 History cyanocobalamin (vitamin B-12) 1,000 mcg PO QAM 09/05/18 09/01/20 History [Vitamin B-12] multivitamin 1 tab PO QAM 09/05/18 09/01/20 History docusate sodium [Stool Softener] 100 mg PO UD PRN 01/08/19 09/01/20 History sennosides-docusate sodium 0 tab PO QPM PRN 01/08/19 09/01/20 History [Senokot-S] fluticasone 500 mcg-salmeterol 50 See Rx Instructions .ROUTE 06/23/19 09/01/20 Rx mcg/dose blistr powdr for .COMPLEX #180 each inhalation ipratropium 20 mcg-albuterol 100 1 puff INHALATION QID #4 gm 08/11/19 09/01/20 Rx mcg/actuation mist for inhalation polyethylene glycol 3350 17 17 gm PO DAILY PRN #119 gm 10/14/19 09/01/20 Rx gram/dose oral powder albuterol sulfate 90 mcg/actuation 2 puff INHALATION Q4H PRN #1 01/26/20 09/01/20 Rx aerosol inhaler inhaler lansoprazole 30 mg capsule,delayed 30 mg PO DAILY #30 cap 03/03/20 09/01/20 Rx release quetiapine 200 mg tablet 200 mg PO HS 30 Days #30 tab 03/03/20 09/01/20 Rx losartan 50 mg tablet 50 mg PO DAILY #90 tab 04/05/20 09/01/20 Rx atorvastatin 40 mg tablet 40 mg PO QPM #90 tab 05/10/20 09/01/20 Rx natalizumab 300 mg/15 mL 300 mg IV MONTHLY 28 Days #15 ml 05/21/20 09/01/20 Rx intravenous solution temazepam 15 mg capsule 15 mg PO HS PRN #90 cap 06/02/20 09/01/20 Rx venlafaxine 150 mg 150 mg PO HS 90 Days #90 cap 07/14/20 09/01/20 Rx capsule,extended release 24 hr gabapentin 300 mg capsule 300 mg PO BID #180 cap 08/20/20 09/01/20 Rx clopidogrel 75 mg tablet 75 mg PO DAILY #30 tab 08/26/20 09/01/20 Rx tolterodine 4 mg capsule,extended 4 mg PO DAILY 30 Days #30 cap 08/26/20 09/01/20 Rx release 24 hr cholecalciferol (vitamin D3) 125 5,000 unit PO DAILY 09/01/20 09/01/20 History mcg (5,000 unit) capsule cholecalciferol (vitamin D3) 25 25 mcg PO DAILY 09/01/20 09/01/20 History mcg (1,000 unit) capsule Patient History Medical History (Updated 09/02/20 @ 10:21 by Miguel Marsh MD) Acute foreign body of left ear canal Altered mental status COPD (chronic obstructive pulmonary disease) Depression with anxiety Eyebrow laceration Facial abrasion Fall Lumbar radiculopathy Multiple sclerosis Syncope Tinnitus, bilateral Surgical History History of colonoscopy History of open heart surgery S/P cataract surgery S/P tonsillectomy Family History Father , age 78 of cancer (uncertain type) Hypertension Hearing loss Colorectal cancer Mother , age 81 of cancer (uncertain type) Diabetes Hypertension Hearing loss Stroke Breast cancer Sister Hypertension Hearing loss Breast cancer Grandmother (Paternal) Hypertension Brother Hearing loss Social History Smoking Status: Former smoker packs per day: 2; Years Smoked: 30; Number of Years Since Quit: 30; Second Hand Exposure: No; Hx Alcohol Use: Yes Alcohol type: beer Alcohol Intake Frequency: Monthly or Less Hx Substance Use: No Preferred Language: Maori Communication Ability: Effective Visual Impairment: Limited Hearing Ability: Use of Hearing Aid Wooden Frame Builder Required: No Beliefs That Will Affect Care: None marital status: / Current Living Situation: Family Current Living Situation Comment: lives with grandson current occupational status: retired and disabled current occupation: Retired maintenance department @ [employer] How many Children do You have: 3 Feels Safe at Home: Yes Seatbelt Use: never Sunscreen Use: No Assistive Devices: Wheelchair Review of Systems Constitutional: + fatigue; no fever and no chills Eyes: no blind spots, no diplopia and no eye pain Ear, Nose, Mouth, Throat: no ear pain Respiratory: no cough and no dyspnea Cardiovascular: no chest pain and no palpitations Gastrointestinal: no nausea and no vomiting Genitourinary: + dysuria, + urinary incontinence and + urinary urgency Musculoskeletal: no myalgia Integumentary: no rash and no lesions Neurologic: as per Subjective / HPI, + gait abnormality and + lack of coordination; no headache(s) Psychiatric: no depression and no anxiety Hematologic / Lymphatic: no easy bleeding and no easy bruising Exam (Neuro) Constitutional: well developed and well nourished; no acute distress Eyes: normal visual glover by confrontation, PERRL, normal accommodation and EOM intact bilaterally; no fundoscopic abnormality, no nystagmus and no papilledema Cardiovascular: Vessels: normal carotid upstroke; no carotid bruit Neurologic: Oriented to:: Person and Place; negative Time Memory: Short Term Intact and Remote Intact Attention: Span Intact; negative Concentration Intact Language: Naming Objects and Repeating Phrases Speech Fluency: Slowed Speech Aphasia: negative Aphasia Fund of Knowledge: Current Events, Past History and Vocabulary Cranial Nerves: Normal II (Visual glover full to confrontation, visual acuity normal), III, IV, (Pupils equal round reactive to light and accommodation, eye movements normal), V (Facial sensation intact), VII (There is no facial droop or weakness), VIII (Hearing intact), IX, X (Palate elevates to midline), XI (Shoulder shrug intact) and XII (Tongue protrudes to midline) Motor Strength: negative Normal Lower Extremities, Normal Upper Extremities and Pronator Drift Motor Tone: Normal Lower Extremities and Normal Upper Extremities Muscle Bulk/Involuntary Movements: No Involuntary Movements; negative Muscle Atrophy Sensation: Light Touch Intact, Pain/Temperature Intact, Vibration Intact and Proprioception Intact Coordination: Normal, Finger-Nose Abnormal and Heel-Hemphill Abnormal; negative Dysdiadochokinesia Deep Tendon Reflexes: Rt Triceps: 2+, Lt Triceps: 2+, Rt Biceps: 2+, Lt Biceps: 2+, Rt Brachioradialis: 2+, Lt Brachioradialis: 2+, Rt Patellar: 2+, Lt Patellar: 2+, Rt Ankle: 1+ and Lt Ankle: 1+ Special Tests: negative Babinski Present Details: Gait and station cannot be tested in the context of patient's current neurological/medical status. Results & Data ([facility]) Vital Signs (Past 12 Hours) Vital Signs Temp Pulse Pulse Resp BP BP Pulse Ox 09/02/20 08:58 80 176/91 H 09/02/20 07:42 36.9 C 77 16 170/84 H 95 09/02/20 01:44 37.0 C 75 16 185/96 H 94 09/02/20 01:20 37.0 C 75 16 185/96 H 94 09/02/20 01:01 77 23 97 09/02/20 01:00 77 23 159/85 H 95 09/02/20 00:00 76 22 160/80 H 94 09/01/20 23:30 83 21 158/72 H 96 09/01/20 23:01 79 24 172/82 H 93 09/01/20 22:30 78 24 95 09/01/20 22:00 76 22 100 Laboratory Results WBC 10.89, hemoglobin 13.9, hematocrit 38.8, platelet count 188, sodium 139, potassium 4.1, BUN 27, creatinine 1.08, glucose 153, AST 25, ALT 37, ammonia 17.3, troponin less than 0.015, vitamin B12 877, TSH 1.470, urinalysis cloudy, greater than 30 WBCs, 2+ leukocyte esterase, 4+ bacteria Diagnostic Findings CT of the head and cervical spine as well as recent brain MRI are as described in the history of present illness. 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 Electrocardiogram completed yesterday revealed a normal sinus rhythm, 78 bpm. An echocardiogram completed this past March revealed normal left ventricular size, wall motion, and systolic function. Ejection fraction 65 to 70%. Intact interatrial septum, no ASD. Left atrial size normal. A 2-day Holter monitor completed last January revealed a sinus rhythm with frequent isolated and couplet APD's as well as isolated nonsustained episodes of SVT/atrial tachycardia. Coding Level of Care Code 65325 Initial Inpt Care Lvl 3 Diagnoses Multiple sclerosis G35 H/O: stroke Z86.73
--- NOTE | 2020-09-02 10:45 | Electrocardiogram Report ---
Test Reason : Blood Pressure : / mmHG Vent. Rate : 078 BPM Atrial Rate : 078 BPM P-R Int : 168 ms QRS Dur : 100 ms QT Int : 404 ms P-R-T Axes : 061 038 073 degrees QTc Int : 460 ms Normal sinus rhythm Normal ECG When compared with ECG of 20-FEB-2020 14:36, No significant change was found Confirmed by Marino Larsen ([id number]) on 09/02/2020 10:44:48 AM Referred By: REFERRED SELF Confirmed By:Ron Larsen
--- NOTE | 2020-09-02 13:55 | Hospitalist Progress Note ---
Date of Service September 02, 2020 Assessment & Plan (1) Fall: Patient with progressive functional decline. Most likely multifactorial including effects of grief, possible effects of Covid-19 vaccination. He also appears to have a UTI present on admission which could be contributing. Fall with head trauma - patient is on Plavix. CT head is WNL Neurology consultation appreciated. Continue OT and PT. Treat UTI (2) Weakness: Patient reports diffuse weakness. Possiblyl secondary to MS flare vs infectious process. Remainder of laboratory workup is unremarkable - electrolytes, renal function and liver studies are WNL Treat UTI. Await neurology evaluation. MRI as above (3) UTI (urinary tract infection): Present on admission. Currently on intravenous Rocephin, day 1. Await urine culture results and tailor antibiotics accordingly. Present on Admission?: Yes (4) Hypertension: Chronic. Stable -Continue Losartan 50mg po daily (5) COPD (chronic obstructive pulmonary disease): Chronic. Stable. No SOB, Cough or wheeze. Adequate oxygenation on room air -Continue Albuterol PRN -Continue Combivent (6) Multiple sclerosis: Patient on Natalizumab monthly. He follows with [facility] Neurology - last seen in clinic yesterday 09/01/20. Neurology consultation requested -Continue Tolterodine -Continue Gabapentin (7) Depression with anxiety: Chronic. Stable -Continue Venlafaxine -Continue Seroquel qHS -Continue Temazepam qHS (8) Gastro-esophageal reflux: Chronic. Stable -Pepcid while inpatient -May resume Prevacid on discharge (9) Hemiparesis affecting right side as late effect of cerebrovascular accident: Patient with chronic left sided deficit following CVA. Stable and unchanged -Continue Atorvastatin -Continue Plavix F/E/N - Heplock. Encourage PO intake. Regular diet as tolerated. Bowel regimen Ppx - SCDs Code - Full Dispo -to be determined Admission and Anticipated Discharge Date Admission Date: September 02, 2020 Subjective Alert and pleasant. He is now aware that he apparently has a UTI present on admission. Brain MRI scan report is pending. Neurology consultation pending. He is now on Rocephin. OT and PT assessments requested. Review of Systems Review of Systems: All systems reviewed & are unremarkable except as noted in HPI & below Physical Exam Physical Exam: General-alert and oriented x3, no fevers, no chills HEENT-head normocephalic, pupils equal and reactive to light, extraocular muscles intact Neck-no lymphadenopathy or thyromegaly, trachea midline Chest-clear to auscultation percussion. No rales wheezing or rhonchi Cardiac-regular rate and rhythm, normal S1 and S2, no murmurs Abdomen-normal bowel sounds, nontender, no hepatosplenomegaly Extremities-no cyanosis, clubbing, or edema Neuro-cranial nerves II through XII intact, motor and sensory function within normal limits, strength symmetrical , no focal deficits Psych-normal affect, normal mood Skinabrasions noted across the forehead and bridge of the nose Results & Data Results & Data ([facility]) Vital Signs (Past 12 Hours) Vital Signs Temp Pulse Resp BP Pulse Ox 09/02/20 11:17 83 18 94 09/02/20 10:15 78 168/87 H 95 09/02/20 08:58 80 176/91 H 09/02/20 07:42 36.9 C 77 16 170/84 H 95 Laboratory Results 09/01/20 21:17 09/01/20 21:17 PG Care Time/CCT Total # of Minutes Spent Total Time Spent with Patient: Total time spent is greater than 50% in coordination of care (as documented) at patient's floor/unit and/or counseling patient: Coding Level of Care Code 36716 Subseq Hosp Care Lvl 3 Diagnoses Fall W19.XXXA Encounter type: initial encounter Weakness R53.1 UTI (urinary tract infection) N39.0 Hypertension I10 Hypertension type: essential hypertension COPD (chronic obstructive pulmonary disease) J44.9 COPD type: unspecified COPD Multiple sclerosis G35 Depression with anxiety F41.8 Gastro-esophageal reflux K21.9 Esophagitis presence: esophagitis presence not specified Hemiparesis affecting right side as late effect of cerebrovascular accident I69.351 (1) Fall Encounter type: initial encounter Qualified Code(s): W19.XXXA - Unspecified fall, initial encounter (2) Hypertension Hypertension type: essential hypertension Qualified Code(s): I10 - Essential (primary) hypertension (3) COPD (chronic obstructive pulmonary disease) COPD type: unspecified COPD Qualified Code(s): J44.9 - Chronic obstructive pulmonary disease, unspecified (4) Gastro-esophageal reflux Esophagitis presence: esophagitis presence not specified Qualified Code(s): K21.9 - Gastro-esophageal reflux disease without esophagitis
[2020-09-02] MEDS: QUEtiapine FUMARATE 200 MG TAB PO SCH (20:02)
[2020-09-02] MEDS: ATORVASTATIN 40 MG TAB PO SCH (20:02)
[2020-09-02] MEDS: VENLAFAXINE HCL XR 150 MG CAPXR PO SCH (20:02)
[2020-09-03 07:44] LABS: Basophils # (auto) 0.02 K/uL (0-0.2); Basophils % (auto) 0.2 %; Eosinophils # (auto) 0.22 K/uL (0-0.5); Eosinophils % (auto) 1.9 %; Hematocrit (blood only) 36.4 % (42-52); Hemoglobin 12.9 g/dL (14.0-18.0); Immature Granulocytes # (auto) 0.08 K/uL (0.00-0.02); Immature Granulocytes % (auto) 0.7 %; Lymphocytes % (auto) 28.9 %; Mean Corpuscular Hemoglobin 29.7 pg (25-34); Mean Corpuscular Hgb Conc 35.4 g/dL (32-36); Mean Corpuscular Volume 83.9 fL (80-100); Mean Platelet Volume 9.5 fL (7.4-10.4); Monocytes # (auto) 1.39 K/uL (0.11-0.59); Monocytes % (auto) 11.8 %; Neutrophils # (auto) 6.64 K/uL (1.4-6.5); Neutrophils % (auto) 56.5 %; Platelet Count 200 K/uL (130-400); RDW Coefficient of Variation 13.4 % (11.5-14.5); RDW Standard Deviation 40.9 fL (36.4-46.3); Red Blood Count 4.34 M/uL (4.7-6.1); White Blood Count 11.75 K/uL (4.8-10.8)
[2020-09-03] MEDS: IPRATROPIUM BROMIDE HFA INHALER INH SCH ×4 (07:54→19:28)
[2020-09-03] MEDS: ALBUTEROL HFA 8 GM INHALER INH SCH ×4 (07:54→19:29)
--- NOTE | 2020-09-03 08:14 | Magnetic Resonance Report ---
MRI OF THE CERVICAL SPINE WITH AND WITHOUT CONTRAST CLINICAL HISTORY: Multiple sclerosis. Fall. Loss of balance. COMPARISON: MRI of the cervical spine December 29, 2019. CT of the cervical spine September 01, 2020. TECHNIQUE: Utilizing a 1.5 Aleyda magnet and dedicated coil, multiplanar, multiecho imaging of the ce rvical spine was performed before and after intravenous administration of 6.3 of Gadavist. FINDINGS: This exam is mildly compromised by motion artifact, particularly affecting the postcontrast images. M ultiple foci of increased T2 signal within the cervical cord are noted. Conspicuity has slightly incr eased since MRI of December 29, 2019 and are most evident at the C2 and C4 levels. No new foci of abnorma l cord signal are identified on this examination. No intracanalicular mass or fluid collection is pre sent. There is no acute fracture. Slight loss of height of the superior plate of T1 is chronic. Incre ased T2 signal within the C7-T1 disc is unchanged. There is minimal prevertebral edema at the C5-T1 l evels. This was not present on previous MRI. Otherwise, the appearance of the cervical spine is simil ar to MRI of December 29, 2019. Note is again made of extensive osteophytosis of the cervical spine with partial fusion of C5-C7. C2-C3: The central canal and neural foramen are patent. C3-C4: The central canal is patent. There is severe bilateral neural foraminal stenosis due to facet arthrosis and uncovertebral hypertrophy. C4-C5: The central canal is patent. There is moderate to severe bilateral neural foraminal stenosis. C5-C6: The central canal is patent. There is moderate to severe bilateral neural foraminal stenosis. C6-C7: Ventral thecal sac is slightly effaced. There is no significant central canal stenosis. Moder ate right neural foraminal stenosis is present. C7-T1: Central canal and neural foramen are patent. IMPRESSION: 1. Mild increased in conspicuity of several T2 hyperintense foci within the cord since MRI of December, possibly technical. These reflect sites of demyelination. No new foci identified. Post contra st images compromised by motion artifact but no definite cord enhancement to suggest active demyelina tion. 2. Mild prevertebral edema at the C5-T1. This is nonspecific and mild ligamentous injury cannot be e xcluded. Otherwise, no significant change in appearance of the cervical spine. 3. Extensive osteophytosis of the cervical spine with partial fusion of C5-C7. Severe multilevel neur al foraminal stenosis, as described above. ACT 112: Negative or not required by law. Electronically signed by: Gera Medina M.D. 09/03/2020 8:13 AM
[2020-09-03 08:16] LABS: BUN Creatinine Ratio 16.8 (10-20); Calcium 8.6 mg/dl (8.5-10.1); Creatinine Clr Calc Pharmacy 61.5 ml/min; Est GFR (African American) 90.5; Est GFR (Non-African American) 78.1; Potassium 3.5 mmol/L (3.5-5.1)
--- NOTE | 2020-09-03 08:27 | Magnetic Resonance Report ---
MR thoracic spine wo/w con HISTORY: 74 years-old Male MS follow-up study in a patient with multiple sclerosis. COMPARISON: MRI cervical spine of same day, MRI thoracic spine 11/20/2011, MRI cervical spine 0. TECHNIQUE: Multiplanar multisequence MRI of the thoracic spine was obtained both with and without the use of 6.3 mL Gadavist FINDINGS: The file clerk localizer images demonstrate no gross extraspinal abnormality. Tortuosity of the descending thoracic aorta. Motion degraded exam. The axial postcontrast images are nondiagnostic. Advanced mult ilevel intervertebral disc space narrowing and facet arthrosis is noted extending from the cervical t hrough the lumbar spine. There is prevertebral edema of the lower cervical spine extending to the lev el of T1-T2. Fluid signal is noted within the C7-T1 disc space, unchanged from the 12/29/2019 exam wit hout endplate erosive change. Degenerative partial bony fusion at C6-C7, T7-T8 and T10-T11. No high-g rade central canal or neuroforaminal narrowing identified. Flattening of the ventral thecal sac at T1 1-T12 secondary to spondylitic spurring and posterior disc bulge. There is normal signal of the thoracic spinal cord. No lesions identified to suggest demyelinating pl aques. There is no abnormal enhancement. IMPRESSION: 1. Normal signal of the thoracic spinal cord. No demyelinating plaques identified. 2. No abnormal enhancement. 3. Nonspecific mild prevertebral edema of the lower cervical spine extending to the level of T1-T2, p ossibly on a posttraumatic basis. 4. Multilevel degenerative changes as above. ACT 112: Negative or not required by law. The above report was generated using voice recognition software. It may contain grammatical, syntax o r spelling errors. Electronically signed by: Adams Haney M.D. 09/03/2020 8:26 AM
[2020-09-03] MEDS: FAMOTIDINE 40 MG TABLET PO SCH (09:06)
[2020-09-03] MEDS: LOSARTAN POTASSIUM 50 MG TAB PO SCH (09:06)
[2020-09-03] MEDS: TOLTERODINE TARTRATE LA 4 MG CAPCR PO SCH (09:06)
[2020-09-03] MEDS: GABAPENTIN 300 MG CAP PO SCH ×2 (09:06→20:01)
[2020-09-03] MEDS: cefTRIAXone SODIUM 1,000 MG in DEXTROSE 5% 50 ML IV SCH (09:07)
[2020-09-03] MEDS: FLUTICASONE/VILANTEROL 100/25MCG 14 PUFFS/INHALER INH SCH (09:07)
[2020-09-03] MEDS: CLOPIDOGREL BISULFATE 75 MG TAB PO SCH (09:07)
--- NOTE | 2020-09-03 09:47 | Neurology Progress Note ---
Date of Service September 03, 2020 Assessment & Plan (1) Multiple sclerosis: Multiple sclerosis, progressive type. (Primary progressive?) No evidence of new lesions or abnormal postcontrast enhancement on recently completed MRI of the brain, cervical spine, and thoracic spine. Patient has probably been experiencing subacute pseudoprogression in the context of a urinary tract infection. Continue with antibiotic therapy. I have not recommended making any changes in this patient's other medications including Detrol LA, Plavix, Neurontin, Seroquel, or Effexor. However, he has been on Tysabri for many years and is reportedly COLLEEN virus antibody positive. Although Tysabri appears to be controlling his MS, it may be reasonable to consider switching from Tysabri to Ocrevus in light of his reported COLLEEN virus positivity and prolonged length of time on Tysabri therapy. I will order an up-to-date COLLEEN virus antibody test. Patient will follow up with either Dr. Jackson or January Hernandez in neurology clinic for further evaluation and management of his MS. Admission and Anticipated Discharge Date Admission Date: September 02, 2020 Subjective Follow-up for multiple sclerosis No significant change in patient's neurologic status. History of longstanding multiple sclerosis, progressive type, on Tysabri for the past 10 years, reportedly COLLEEN virus antibody positive, presenting with subacute decline in functional status, increased weakness and falls. History of neurogenic bladder. Contrast-enhanced brain MRI completed yesterday suggested stability of this patient's demyelinating disease compared with a previous MRI done in December 2019. Evidence of chronic infarcts and/or chronic MS lesions,"black holes." Cervical spine MRI reveals chronic foci of demyelination within the cervical spinal cord, not likely different compared with the previous MRI done in December 2019. No new or active lesions. Thoracic spine MRI negative for lesions or demyelinating plaques. Review of Systems Genitourinary: + urinary incontinence and + urinary urgency Neurologic: + gait abnormality and + localized weakness; no headache(s) Results & Data ([facility]) Vital Signs (Past 12 Hours) Vital Signs Temp Pulse Resp BP Pulse Ox 09/03/20 08:00 37.0 C 74 18 153/83 H 93 09/03/20 07:54 72 16 95 09/02/20 23:38 36.6 C 92 H 18 179/94 H 92 Exam (Neuro) Neurologic: Oriented to:: Person and Place; negative Time Memory: Short Term Intact and Remote Intact Attention: Span Intact; negative Concentration Intact Speech Fluency: negative Dysarthria Speech Aphasia: negative Aphasia Fund of Knowledge: Past History and Vocabulary Cranial Nerves: Normal II, III, IV, and VII Motor Strength: Normal Upper Extremities; negative Normal Lower Extremities Coding Level of Care Code 43881 Subseq Hosp Care Lvl 2 Diagnoses Multiple sclerosis G35
--- NOTE | 2020-09-03 13:49 | Hospitalist Progress Note ---
Date of Service September 03, 2020 Assessment & Plan (1) Fall: Patient with progressive functional decline. Most likely multifactorial including effects of grief, possible effects of Covid-19 vaccination. UTI present on admission is contributing. Fall with head trauma - patient is on Plavix. CT head is WNL. Brain MRI scan unchanged Neurology consultation appreciated. Continue OT and PT. Treat UTI (2) Weakness: Patient reports diffuse weakness. Brain MRI, cervical spine MRI, thoracic spine MRI all reveal chronic changes. Nothing new. He does not appear to have a multiple sclerosis flare at this time and steroid therapy is not recommended. Appreciate neurology consultation. Continue occupational therapy and physical therapy. Supportive care. Treat underlying UTI. (3) UTI (urinary tract infection): Present on admission. Currently on intravenous Rocephin, day 2. Gram- negative's isolated.. Await final results and tailor antibiotics accordingly. (4) Hypertension: Chronic. Stable -Continue Losartan 50mg po daily (5) COPD (chronic obstructive pulmonary disease): Chronic. Stable. No SOB, Cough or wheeze. Adequate oxygenation on room air -Continue Albuterol PRN -Continue Combivent (6) Multiple sclerosis: Patient on Natalizumab monthly. He follows with [facility] [place] [facility]rology - last seen in clinic yesterday 09/01/20. Neurology consultation appreciated. No indication for steroid therapy now. No indication of MS flare -Continue Tolterodine -Continue Gabapentin (7) Depression with anxiety: Chronic. Stable -Continue Venlafaxine -Continue Seroquel qHS -Continue Temazepam qHS (8) Gastro-esophageal reflux: Chronic. Stable -Pepcid while inpatient -May resume Prevacid on discharge (9) Hemiparesis affecting right side as late effect of cerebrovascular accident: Patient with chronic left sided deficit following CVA. Stable and unchanged -Continue Atorvastatin -Continue Plavix F/E/N - Heplock. Encourage PO intake. Regular diet as tolerated. Bowel regimen Ppx - SCDs Code - Full Dispo -probable SNF placement at discharge Admission and Anticipated Discharge Date Admission Date: September 02, 2020 Subjective Alert and oriented. Gram-negative rods isolated in the urine culture. Sensitivities and identification pending. Continue Rocephin for now, day 2. Neurology consultation noted. No new findings on brain MRI, cervical spine MRI, thoracic spine MRI. Continue current medications. Continue OT and PT evaluations. He probably will need placement at discharge. Review of Systems Review of Systems: All systems reviewed & are unremarkable except as noted in HPI & below Physical Exam Physical Exam: General-alert and oriented x3, no fevers, no chills HEENT-head atraumatic and normocephalic, pupils equal and reactive to light, extraocular muscles intact Neck-no lymphadenopathy or thyromegaly, trachea midline Chest-clear to auscultation percussion. No rales wheezing or rhonchi Cardiac-regular rate and rhythm, normal S1 and S2 Abdomen-normal bowel sounds, nontender, no hepatosplenomegaly Extremities-no cyanosis, clubbing, or edema Neuro-cranial nerves II through XII intact, motor and sensory function within normal limits, strength symmetrical with generalized weakness , no focal deficits Psych-flat affect Results & Data Results & Data ([facility]) Vital Signs (Past 12 Hours) Vital Signs Temp Pulse Resp BP Pulse Ox 09/03/20 11:14 74 16 95 09/03/20 08:00 37.0 C 74 18 153/83 H 93 09/03/20 07:54 72 16 95 Laboratory Results 09/03/20 07:15 09/03/20 07:15 PG Care Time/CCT Total # of Minutes Spent Total Time Spent with Patient: Total time spent is greater than 50% in coordination of care (as documented) at patient's floor/unit and/or counseling patient: Coding Level of Care Code 41702 Subseq Hosp Care Lvl 3 Diagnoses Fall W19.XXXA Encounter type: initial encounter Weakness R53.1 UTI (urinary tract infection) N39.0 Hypertension I10 Hypertension type: essential hypertension COPD (chronic obstructive pulmonary disease) J44.9 COPD type: unspecified COPD Multiple sclerosis G35 Depression with anxiety F41.8 Gastro-esophageal reflux K21.9 Esophagitis presence: esophagitis presence not specified Hemiparesis affecting right side as late effect of cerebrovascular accident I69.351 (1) Fall Encounter type: initial encounter Qualified Code(s): W19.XXXA - Unspecified fall, initial encounter (2) Hypertension Hypertension type: essential hypertension Qualified Code(s): I10 - Essential (primary) hypertension (3) COPD (chronic obstructive pulmonary disease) COPD type: unspecified COPD Qualified Code(s): J44.9 - Chronic obstructive pulmonary disease, unspecified (4) Gastro-esophageal reflux Esophagitis presence: esophagitis presence not specified Qualified Code(s): K21.9 - Gastro-esophageal reflux disease without esophagitis
[2020-09-03] MEDS: ATORVASTATIN 40 MG TAB PO SCH (20:01)
[2020-09-03] MEDS: QUEtiapine FUMARATE 200 MG TAB PO SCH (20:01)
[2020-09-03] MEDS: VENLAFAXINE HCL XR 150 MG CAPXR PO SCH (20:01)
[2020-09-04] MEDS: IPRATROPIUM BROMIDE HFA INHALER INH SCH ×3 (08:04→19:56)
[2020-09-04] MEDS: ALBUTEROL HFA 8 GM INHALER INH SCH ×3 (08:05→19:57)
[2020-09-04] MEDS: FLUTICASONE/VILANTEROL 100/25MCG 14 PUFFS/INHALER INH SCH (09:34)
[2020-09-04] MEDS: LOSARTAN POTASSIUM 50 MG TAB PO SCH (09:34)
[2020-09-04] MEDS: CLOPIDOGREL BISULFATE 75 MG TAB PO SCH (09:34)
[2020-09-04] MEDS: TOLTERODINE TARTRATE LA 4 MG CAPCR PO SCH (09:34)
[2020-09-04] MEDS: FAMOTIDINE 40 MG TABLET PO SCH (09:35)
[2020-09-04] MEDS: cefTRIAXone SODIUM 1,000 MG in DEXTROSE 5% 50 ML IV SCH (09:35)
[2020-09-04] MEDS: GABAPENTIN 300 MG CAP PO SCH ×2 (09:35→19:50)
[2020-09-04] MEDS: QUEtiapine FUMARATE 200 MG TAB PO SCH (19:50)
[2020-09-04] MEDS: cephALEXin 500 MG CAP PO SCH (19:50)
[2020-09-04] MEDS: ATORVASTATIN 40 MG TAB PO SCH (19:51)
[2020-09-04] MEDS: VENLAFAXINE HCL XR 150 MG CAPXR PO SCH (19:51)
--- NOTE | 2020-09-04 20:18 | Hospitalist Progress Note ---
Date of Service September 04, 2020 Assessment & Plan (1) Fall: Suspect 2nd to UTI and recent COVID-19 vaccination in setting of advanced MS. PT, OT. Both advising rehab. Spoke to patient about [facility] stay - he will "let me know tomorrow." (2) UTI (urinary tract infection): 2nd e.coli, pansens. stop rocephin. change to keflex 500mg BID. needs REUBEN to r/o prostatitis. (3) Hypertension: Controlled. Continue Losartan 50mg po daily. (4) COPD (chronic obstructive pulmonary disease): Chronic. Stable. Cont inhalers (5) Multiple sclerosis: Patient on Natalizumab monthly. He follows with [facility] [place] Neurology - last seen in clinic 09/01/20. Neurology consultation appreciated. No indication for steroid therapy now as there is no MS flare based on imaging. Continue Tolterodine Continue Gabapentin (6) Depression with anxiety: Chronic. Stable Continue Venlafaxine Continue Seroquel qHS Continue Temazepam qHS (7) Gastro-esophageal reflux: Chronic. Stable Cont H2 marcus (8) Hemiparesis affecting right side as late effect of cerebrovascular accident: Patient with chronic left sided deficit following CVA. Continue Atorvastatin. Continue Plavix for secondary prevention. (9) DVT prophylaxis: lovenox 40mg daily patient needing rehab - uncertain if he wishes to do so Admission and Anticipated Discharge Date Admission Date: September 03, 2020 Subjective patient w/o complaints today watching [employer] baseball eating ok just weak he is unsure if he wants to go to rehab Review of Systems Constitutional: no fever Respiratory: no dyspnea Cardiovascular: no chest pain Gastrointestinal: no abdominal pain Genitourinary: no dysuria and no difficulty urinating Physical Exam Constitutional: + thin; no acute distress and no altered mental status ENMT: external ear and nose normal, oropharynx normal Respiratory: normal respiratory effort, lungs clear to auscultation Cardiovascular: Rate/Rhythm: regular rate and regular rhythm Heart Sounds: normal S1 and normal S2; no murmur Vessels: posterior tibial pulses present and dorsalis pedis pulses present; no JVD Extremities: no edema Gastrointestinal (Abdomen): normal bowel sounds, soft, nontender, no hepatosplenomegaly Psychiatric: Orientation: alert and oriented x 3 Results & Data Results & Data ([facility]) Vital Signs (Past 12 Hours) Vital Signs Temp Pulse Resp BP Pulse Ox 09/04/20 19:57 83 16 95 09/04/20 14:59 36.4 C L 74 16 153/80 H 93 09/04/20 11:45 77 16 96 PG Care Time/CCT Total # of Minutes Spent Total Time Spent with Patient: Total time spent is greater than 50% in coordination of care (as documented) at patient's floor/unit and/or counseling patient: Coding Level of Care Code 56185 Subseq Hosp Care Lvl 2 Diagnoses Fall W19.XXXA Encounter type: initial encounter UTI (urinary tract infection) N39.0 Hypertension I10 Hypertension type: essential hypertension COPD (chronic obstructive pulmonary disease) J44.9 COPD type: unspecified COPD Multiple sclerosis G35 Depression with anxiety F41.8 Gastro-esophageal reflux K21.9 Esophagitis presence: esophagitis presence not specified Hemiparesis affecting right side as late effect of cerebrovascular accident I69.351 DVT prophylaxis Z29.9 (1) COPD (chronic obstructive pulmonary disease) COPD type: unspecified COPD Qualified Code(s): J44.9 - Chronic obstructive pulmonary disease, unspecified (2) Gastro-esophageal reflux Esophagitis presence: esophagitis presence not specified Qualified Code(s): K21.9 - Gastro-esophageal reflux disease without esophagitis (3) Hypertension Hypertension type: essential hypertension Qualified Code(s): I10 - Essential (primary) hypertension (4) Fall Encounter type: initial encounter Qualified Code(s): W19.XXXA - Unspecified fall, initial encounter
[2020-09-05] MEDS: FLUTICASONE/VILANTEROL 100/25MCG 14 PUFFS/INHALER INH SCH (07:39)
[2020-09-05] MEDS: LOSARTAN POTASSIUM 50 MG TAB PO SCH (07:40)
[2020-09-05] MEDS: cephALEXin 500 MG CAP PO SCH ×2 (07:40→20:07)
[2020-09-05] MEDS: CLOPIDOGREL BISULFATE 75 MG TAB PO SCH (07:40)
[2020-09-05] MEDS: FAMOTIDINE 40 MG TABLET PO SCH (07:40)
[2020-09-05] MEDS: TOLTERODINE TARTRATE LA 4 MG CAPCR PO SCH (07:42)
[2020-09-05] MEDS: GABAPENTIN 300 MG CAP PO SCH ×2 (07:42→20:06)
[2020-09-05] MEDS: IPRATROPIUM BROMIDE HFA INHALER INH SCH ×2 (08:02→19:49)
[2020-09-05] MEDS: ALBUTEROL HFA 8 GM INHALER INH SCH ×2 (08:02→19:49)
[2020-09-05] MEDS: ATORVASTATIN 40 MG TAB PO SCH (20:07)
[2020-09-05] MEDS: QUEtiapine FUMARATE 200 MG TAB PO SCH (20:07)
[2020-09-05] MEDS: VENLAFAXINE HCL XR 150 MG CAPXR PO SCH (20:07)
--- NOTE | 2020-09-05 22:02 | Hospitalist Progress Note ---
Date of Service September 05, 2020 Assessment & Plan (1) Fall: Suspect 2nd to UTI and recent COVID-19 vaccination in setting of advanced MS. PT, OT. Both advising rehab. Agreeable to [facility] referral. (2) UTI (urinary tract infection): 2nd e.coli, pansens. stopped rocephin. now on keflex 500mg BID. today is day #4 of abx. if no prostatitis plan 7 days in total. needs REUBEN to r/o prostatitis. if such is present - then 4-week course. (3) Hypertension: Controlled. Continue Losartan 50mg po daily. (4) COPD (chronic obstructive pulmonary disease): Chronic. Stable. Cont inhalers (5) Multiple sclerosis: Patient on Natalizumab monthly. He follows with [facility] [place] Neurology - last seen in clinic 09/01/20. Neurology consultation appreciated. No indication for steroid therapy now as there is no MS flare based on imaging. Continue Tolterodine & Gabapentin. (6) Depression with anxiety: Chronic. Stable Continue Venlafaxine Continue Seroquel qHS Continue Temazepam qHS (7) Gastro-esophageal reflux: Chronic. Stable Cont H2 marcus (8) Hemiparesis affecting right side as late effect of cerebrovascular accident: Continue Atorvastatin. Continue Plavix for secondary prevention. recent MRI brain with old CVAs but no new CVA ("Multiple old periventricular, bilateral basal ganglia, bilateral thalami lacunar infarcts" on MRI). (9) DVT prophylaxis: lovenox 40mg daily patient needing rehab - [facility] is first choice updated his daughter, Chanell, today by phone Admission and Anticipated Discharge Date Admission Date: September 03, 2020 Subjective patient w/ uneventful day feels ok willing to go to rehab his daughter spoke w/ him yesterday -- he would prefer [facility] does NOT want [facility] - his there and he just doesn't feel he could go there because of that no new complaints eating well Review of Systems Constitutional: no fever Respiratory: no cough and no dyspnea Cardiovascular: no chest pain Gastrointestinal: no abdominal pain Physical Exam Constitutional: + thin; no acute distress and no altered mental status ENMT: external ear and nose normal, oropharynx normal Respiratory: normal respiratory effort, lungs clear to auscultation Cardiovascular: Rate/Rhythm: regular rate and regular rhythm Heart Sounds: normal S1 and normal S2; no murmur Vessels: posterior tibial pulses present and dorsalis pedis pulses present; no JVD Extremities: no edema Gastrointestinal (Abdomen): normal bowel sounds, soft, nontender, no hepatosplenomegaly Skin: abrasions w/ blood right forehead x 1; 2 areas on nose; no laceration Psychiatric: Orientation: alert and oriented x 3 Results & Data Results & Data ([facility]) Vital Signs (Past 12 Hours) Vital Signs Temp Pulse Resp BP Pulse Ox 09/05/20 19:50 84 16 94 09/05/20 14:56 36.4 C L 77 16 154/95 H 93 PG Care Time/CCT Total # of Minutes Spent Total Time Spent with Patient: Total time spent is greater than 50% in coordination of care (as documented) at patient's floor/unit and/or counseling patient: Coding Level of Care Code 39438 Subseq Hosp Care Lvl 2 Diagnoses Fall W19.XXXA Encounter type: initial encounter UTI (urinary tract infection) N39.0 Hypertension I10 Hypertension type: essential hypertension COPD (chronic obstructive pulmonary disease) J44.9 COPD type: unspecified COPD Multiple sclerosis G35 Depression with anxiety F41.8 Gastro-esophageal reflux K21.9 Esophagitis presence: esophagitis presence not specified Hemiparesis affecting right side as late effect of cerebrovascular accident I69.351 DVT prophylaxis Z29.9 (1) COPD (chronic obstructive pulmonary disease) COPD type: unspecified COPD Qualified Code(s): J44.9 - Chronic obstructive pulmonary disease, unspecified (2) Gastro-esophageal reflux Esophagitis presence: esophagitis presence not specified Qualified Code(s): K21.9 - Gastro-esophageal reflux disease without esophagitis (3) Hypertension Hypertension type: essential hypertension Qualified Code(s): I10 - Essential (primary) hypertension (4) Fall Encounter type: initial encounter Qualified Code(s): W19.XXXA - Unspecified fall, initial encounter
[2020-09-06 06:03] LABS: Hematocrit (blood only) 40.2 % (42-52); Mean Corpuscular Hemoglobin 29.7 pg (25-34); Mean Corpuscular Hgb Conc 34.8 g/dL (32-36); Mean Corpuscular Volume 85.4 fL (80-100); Mean Platelet Volume 9.6 fL (7.4-10.4); Nucleated RBC # (auto) 0.08 K/uL (0-0); Nucleated RBC % (auto) 0.6 %; Platelet Count 273 K/uL (130-400); RDW Coefficient of Variation 13.5 % (11.5-14.5); RDW Standard Deviation 41.9 fL (36.4-46.3); Red Blood Count 4.71 M/uL (4.7-6.1); White Blood Count 12.83 K/uL (4.8-10.8)
[2020-09-06 06:39] LABS: BUN Creatinine Ratio 26.4 (10-20); Calcium 8.6 mg/dl (8.5-10.1); Creatinine Clr Calc Pharmacy 65.6 ml/min; Est GFR (African American) 97.9; Est GFR (Non-African American) 84.4; Potassium 3.8 mmol/L (3.5-5.1)
[2020-09-06] MEDS: FLUTICASONE/VILANTEROL 100/25MCG 14 PUFFS/INHALER INH SCH (07:26)
[2020-09-06] MEDS: CLOPIDOGREL BISULFATE 75 MG TAB PO SCH (07:26)
[2020-09-06] MEDS: FAMOTIDINE 40 MG TABLET PO SCH (07:26)
[2020-09-06] MEDS: LOSARTAN POTASSIUM 50 MG TAB PO SCH (07:26)
[2020-09-06] MEDS: TOLTERODINE TARTRATE LA 4 MG CAPCR PO SCH (07:26)
[2020-09-06] MEDS: cephALEXin 500 MG CAP PO SCH ×2 (07:26→20:18)
[2020-09-06] MEDS: GABAPENTIN 300 MG CAP PO SCH ×2 (07:26→20:18)
[2020-09-06] MEDS: ALBUTEROL HFA 8 GM INHALER INH SCH ×2 (07:55→19:50)
[2020-09-06] MEDS: IPRATROPIUM BROMIDE HFA INHALER INH SCH ×2 (07:56→19:50)
--- NOTE | 2020-09-06 09:01 | Hospitalist Progress Note ---
Date of Service September 06, 2020 Assessment & Plan (1) Fall: Suspect 2nd to UTI and recent COVID-19 vaccination in setting of advanced MS. PT, OT. Both advising rehab. Patient open this senior care facility rehab but not [facility] due to the of his and [facility] [place] (2) UTI (urinary tract infection): 2nd e.coli, shepard sens. Rocephin. changed to keflex 500mg BID. consider treating for prostatitis minimum of 2 weeks. (3) Hypertension: Losartan 50mg po daily. (4) COPD (chronic obstructive pulmonary disease): Chronic. Stable. Cont inhalers (5) Multiple sclerosis: Patient on Natalizumab monthly. He follows with [facility] [place] [facility] - last seen in clinic 09/01/20. Neurology consultation appreciated. No indication for steroid therapy now as there is no MS flare based on imaging. Continue Tolterodine Continue Gabapentin (6) Depression with anxiety: Chronic. Stable Continue Venlafaxine Continue Seroquel qHS Continue Temazepam qHS (7) Gastro-esophageal reflux: Chronic. Stable Cont H2 marcus (8) Hemiparesis affecting right side as late effect of cerebrovascular accident: Patient with chronic left sided deficit following CVA. Continue Atorvastatin. Continue Plavix for secondary prevention. (9) DVT prophylaxis: lovenox 40mg daily patient needing rehab -patient in agreement 5 Admission and Anticipated Discharge Date Admission Date: September 03, 2020 Subjective pt is doing well, very weak, is supportive of rehab, does not want to go to [facility], as his there. he did walk in the halls with PT today Review of Systems Review of Systems: Mild distress and fatigue no headache, blurry or double vision no speech or swallowing issues no chest pain, pressure or palpitations no shortness of breath, cough or wheezes no abdominal pain, nausea or vomiting, diarrhea or constipation no dysuria, hematuria or frequency no back pain, CVA tenderness or radicular pain He has crusted bruising across his forehead and nose Baseline hemiparesis due to previous stroke no complaints of anxiety or depression.. Physical Exam Physical Exam: The patient appeared well nourished and normally developed. Vital signs as documented. Head exam is normocephalic resting eschars on right forehead and bridge of nose Neck is without JVD, thyromegaly, or carotid bruits. Lungs are clear to auscultation, no focal loss of breath sounds Cardiac exam, Rhythm is regular.. No murmurs, rubs or gallops. Abdominal exam reveals normal bowel sounds, soft non tender, no masses Extremities are various healed bruises of different ages. Right-sided weakness/hemiparesis Neurologic exam is alert and oriented, no focal loss of strength or sensation Skin is with bruises Psychologically is without concerns for anxiety or depression Results & Data Results & Data ([facility]) Vital Signs (Past 12 Hours) Vital Signs Temp Pulse Resp BP BP Pulse Ox 09/06/20 07:59 71 16 94 09/06/20 07:40 97.3 F L 76 18 183/93 H 95 09/05/20 22:58 98.8 F 90 16 170/85 H 93 PG Care Time/CCT Total # of Minutes Spent Total Time Spent with Patient: Total time spent is greater than 50% in coordination of care (as documented) at patient's floor/unit and/or counseling patient: Coding Level of Care Code 47422 Subseq Hosp Care Lvl 2 Diagnoses Fall W19.XXXA Encounter type: initial encounter UTI (urinary tract infection) N39.0 Hypertension I10 Hypertension type: essential hypertension COPD (chronic obstructive pulmonary disease) J44.9 COPD type: unspecified COPD Multiple sclerosis G35 Depression with anxiety F41.8 Gastro-esophageal reflux K21.9 Esophagitis presence: esophagitis presence not specified Hemiparesis affecting right side as late effect of cerebrovascular accident I69.351 DVT prophylaxis Z29.9 (1) COPD (chronic obstructive pulmonary disease) COPD type: unspecified COPD Qualified Code(s): J44.9 - Chronic obstructive pulmonary disease, unspecified (2) Gastro-esophageal reflux Esophagitis presence: esophagitis presence not specified Qualified Code(s): K21.9 - Gastro-esophageal reflux disease without esophagitis (3) Hypertension Hypertension type: essential hypertension Qualified Code(s): I10 - Essential (primary) hypertension (4) Fall Encounter type: initial encounter Qualified Code(s): W19.XXXA - Unspecified fall, initial encounter
[2020-09-06] MEDS: ATORVASTATIN 40 MG TAB PO SCH (20:18)
[2020-09-06] MEDS: QUEtiapine FUMARATE 200 MG TAB PO SCH (20:18)
[2020-09-06] MEDS: VENLAFAXINE HCL XR 150 MG CAPXR PO SCH (20:18)
[2020-09-07] MEDS: ALBUTEROL HFA 8 GM INHALER INH SCH ×2 (07:59→20:23)
[2020-09-07] MEDS: IPRATROPIUM BROMIDE HFA INHALER INH SCH ×2 (07:59→20:23)
[2020-09-07] MEDS: FAMOTIDINE 40 MG TABLET PO SCH (08:23)
[2020-09-07] MEDS: TOLTERODINE TARTRATE LA 4 MG CAPCR PO SCH (08:23)
[2020-09-07] MEDS: CLOPIDOGREL BISULFATE 75 MG TAB PO SCH (08:23)
[2020-09-07] MEDS: GABAPENTIN 300 MG CAP PO SCH ×2 (08:23→20:56)
[2020-09-07] MEDS: cephALEXin 500 MG CAP PO SCH ×2 (08:23→20:56)
[2020-09-07] MEDS: LOSARTAN POTASSIUM 50 MG TAB PO SCH (08:23)
[2020-09-07] MEDS: FLUTICASONE/VILANTEROL 100/25MCG 14 PUFFS/INHALER INH SCH (08:23)
--- NOTE | 2020-09-07 08:57 | Hospitalist Progress Note ---
Date of Service September 07, 2020 Assessment & Plan (1) Fall: Suspect 2nd to UTI and recent COVID-19 vaccination in setting of advanced MS. deconditioning and some component for possible depresison from wifes some metabolic encephalopathy frmo uti poa PT, OT. Both advising rehab. Patient open this senior care facility rehab but not [facility] due to the of his and [facility] [place] (2) UTI (urinary tract infection): 2nd e.coli, shepard sens. Rocephin. changed to keflex 500mg BID. consider treating for prostatitis minimum of 2 weeks. (3) Hypertension: Losartan 50mg po daily. (4) COPD (chronic obstructive pulmonary disease): Chronic. Stable. Cont inhalers (5) Multiple sclerosis: Patient on Natalizumab monthly. He [place] [facility] - last seen in clinic 09/01/20. Neurology consultation appreciated. No indication for steroid therapy now as there is no MS flare based on imaging. Continue Tolterodine & Gabapentin. (6) Depression with anxiety: Chronic. Stable Continue Venlafaxine Continue Seroquel qHS Continue Temazepam qHS (7) Gastro-esophageal reflux: Chronic. Stable Cont H2 marcus (8) Hemiparesis affecting right side as late effect of cerebrovascular accident: Continue Atorvastatin. Continue Plavix for secondary prevention. recent MRI brain with old CVAs but no new CVA ("Multiple old periventricular, bilateral basal ganglia, bilateral thalami lacunar infarcts" on MRI). (9) DVT prophylaxis: lovenox 40mg daily patient needing rehab -patient in agreement 4/5 Admission and Anticipated Discharge Date Admission Date: September 03, 2020 Subjective pt is doing well, continues to be very weak, is supportive of rehab, does not want to go to [facility], as his there. he did walk in the halls with PT today not a MS flare according to neurology Review of Systems Review of Systems: Mild distress and fatigue no headache, blurry or double vision no speech or swallowing issues no chest pain, pressure or palpitations no shortness of breath, cough or wheezes no abdominal pain, nausea or vomiting, diarrhea or constipation no dysuria, hematuria or frequency no back pain, CVA tenderness or radicular pain He has crusted bruising across his forehead and nose Baseline hemiparesis due to previous stroke no complaints of anxiety or depression.. Physical Exam Physical Exam: The patient appeared well nourished and normally developed. Vital signs as documented. Head exam is normocephalic resting eschars on right forehead and bridge of nose Neck is without JVD, thyromegaly, or carotid bruits. Lungs are clear to auscultation, no focal loss of breath sounds Cardiac exam, Rhythm is regular.. No murmurs, rubs or gallops. Abdominal exam reveals normal bowel sounds, soft non tender, no masses Extremities are various healed bruises of different ages. Right-sided weakness/hemiparesis Neurologic exam is alert and oriented, no focal loss of strength or sensation Skin is with bruises Psychologically is without concerns for anxiety or depression Results & Data Results & Data ([facility]) Vital Signs (Past 12 Hours) Vital Signs Temp Pulse Resp BP BP Pulse Ox 09/07/20 08:22 75 160/84 H 09/07/20 08:01 74 17 96 09/07/20 07:29 97.9 F 74 18 162/89 H 93 09/06/20 22:58 98.8 F 77 16 133/77 94 PG Care Time/CCT Total # of Minutes Spent Total Time Spent with Patient: Total time spent is greater than 50% in coordination of care (as documented) at patient's floor/unit and/or counseling patient: Coding Level of Care Code 54979 Subseq Hosp Care Lvl 2 Diagnoses Fall W19.XXXA Encounter type: initial encounter UTI (urinary tract infection) N39.0 Hypertension I10 Hypertension type: essential hypertension COPD (chronic obstructive pulmonary disease) J44.9 COPD type: unspecified COPD Multiple sclerosis G35 Depression with anxiety F41.8 Gastro-esophageal reflux K21.9 Esophagitis presence: esophagitis presence not specified Hemiparesis affecting right side as late effect of cerebrovascular accident I69.351 DVT prophylaxis Z29.9 (1) COPD (chronic obstructive pulmonary disease) COPD type: unspecified COPD Qualified Code(s): J44.9 - Chronic obstructive pulmonary disease, unspecified (2) Gastro-esophageal reflux Esophagitis presence: esophagitis presence not specified Qualified Code(s): K21.9 - Gastro-esophageal reflux disease without esophagitis (3) Hypertension Hypertension type: essential hypertension Qualified Code(s): I10 - Essential (primary) hypertension (4) Fall Encounter type: initial encounter Qualified Code(s): W19.XXXA - Unspecified fall, initial encounter
[2020-09-07] MEDS: VENLAFAXINE HCL XR 150 MG CAPXR PO SCH (20:57)
[2020-09-07] MEDS: QUEtiapine FUMARATE 200 MG TAB PO SCH (20:57)
[2020-09-07] MEDS: ATORVASTATIN 40 MG TAB PO SCH (20:57)
[2020-09-08] MEDS: IPRATROPIUM BROMIDE HFA INHALER INH SCH ×2 (07:49→19:37)
[2020-09-08] MEDS: ALBUTEROL HFA 8 GM INHALER INH SCH ×2 (07:50→19:37)
[2020-09-08] MEDS: LOSARTAN POTASSIUM 50 MG TAB PO SCH (08:41)
[2020-09-08] MEDS: FLUTICASONE/VILANTEROL 100/25MCG 14 PUFFS/INHALER INH SCH (08:41)
[2020-09-08] MEDS: TOLTERODINE TARTRATE LA 4 MG CAPCR PO SCH (08:41)
[2020-09-08] MEDS: cephALEXin 500 MG CAP PO SCH ×2 (08:41→19:59)
[2020-09-08] MEDS: FAMOTIDINE 40 MG TABLET PO SCH (08:42)
[2020-09-08] MEDS: CLOPIDOGREL BISULFATE 75 MG TAB PO SCH (08:42)
[2020-09-08] MEDS: GABAPENTIN 300 MG CAP PO SCH ×2 (08:42→19:59)
--- NOTE | 2020-09-08 16:11 | Hospitalist Progress Note ---
Date of Service September 08, 2020 Assessment & Plan (1) Fall: Suspect 2nd to UTI and recent COVID-19 vaccination in setting of advanced MS. Neurology did feel this was an active ms flare deconditioning and some component for possible depression from wifes some metabolic encephalopathy from uti poa PT, OT. Both advising rehab. Patient open this custodial facility rehab but not [facility] due to the of his and [facility] [place] (2) UTI (urinary tract infection): 2nd e.coli, shepard sens. Rocephin. changed to keflex 500mg BID. consider treating for prostatitis minimum of 2 weeks. (3) Hypertension: Losartan 50mg po daily. (4) COPD (chronic obstructive pulmonary disease): Chronic. Stable. Cont inhalers (5) Multiple sclerosis: Patient on Natalizumab monthly. He follows with [facility] [place] - last seen in clinic 09/01/20. Neurology consultation appreciated. No indication for steroid therapy now as there is no MS flare based on imaging. Continue Tolterodine & Gabapentin. (6) Depression with anxiety: Chronic. Stable Continue Venlafaxine Continue Seroquel qHS Continue Temazepam qHS (7) Gastro-esophageal reflux: Chronic. Stable Cont H2 marcus (8) Hemiparesis affecting right side as late effect of cerebrovascular accident: Continue Atorvastatin. Continue Plavix for secondary prevention. recent MRI brain with old CVAs but no new CVA ("Multiple old periventricular, bilateral basal ganglia, bilateral thalami lacunar infarcts" on MRI). (9) DVT prophylaxis: lovenox 40mg daily patient needing rehab -patient in agreement 09/06 Admission and Anticipated Discharge Date Admission Date: September 03, 2020 Subjective pt is doing well, continues to be very weak, is supportive of rehab, does not want to go to [facility], as his there. He continues to participate in physical therapy, for rehab not a MS flare according to neurology Review of Systems Review of Systems: Mild distress and fatigue no headache, blurry or double vision no speech or swallowing issues no chest pain, pressure or palpitations no shortness of breath, cough or wheezes no abdominal pain, nausea or vomiting, diarrhea or constipation no dysuria, hematuria or frequency no back pain, CVA tenderness or radicular pain He has crusted bruising across his forehead and nose Baseline hemiparesis due to previous stroke no complaints of anxiety or depression.. Physical Exam Physical Exam: The patient appeared well nourished and normally developed. Vital signs as documented. Head exam is normocephalic resting eschars on right forehead and bridge of nose Neck is without JVD, thyromegaly, or carotid bruits. Lungs are clear to auscultation, no focal loss of breath sounds Cardiac exam, Rhythm is regular.. No murmurs, rubs or gallops. Abdominal exam reveals normal bowel sounds, soft non tender, no masses Extremities are various healed bruises of different ages. Right-sided weakness/hemiparesis Neurologic exam is alert and oriented, no focal loss of strength or sensation Skin is with bruises Psychologically is without concerns for anxiety or depression Results & Data Results & Data ([facility]) Vital Signs (Past 12 Hours) Vital Signs Temp Pulse Pulse Resp BP BP Pulse Ox 09/08/20 15:39 97.9 F 73 22 157/89 H 95 09/08/20 07:24 97.7 F 73 20 152/84 H 93 PG Care Time/CCT Total # of Minutes Spent Total Time Spent with Patient: Total time spent is greater than 50% in coordination of care (as documented) at patient's floor/unit and/or counseling patient: Coding Level of Care Code 05227 Subseq Hosp Care Lvl 2 Diagnoses Fall W19.XXXA Encounter type: initial encounter UTI (urinary tract infection) N39.0 Hypertension I10 Hypertension type: essential hypertension COPD (chronic obstructive pulmonary disease) J44.9 COPD type: unspecified COPD Multiple sclerosis G35 Depression with anxiety F41.8 Gastro-esophageal reflux K21.9 Esophagitis presence: esophagitis presence not specified Hemiparesis affecting right side as late effect of cerebrovascular accident I69.351 DVT prophylaxis Z29.9 (1) COPD (chronic obstructive pulmonary disease) COPD type: unspecified COPD Qualified Code(s): J44.9 - Chronic obstructive pulmonary disease, unspecified (2) Gastro-esophageal reflux Esophagitis presence: esophagitis presence not specified Qualified Code(s): K21.9 - Gastro-esophageal reflux disease without esophagitis (3) Hypertension Hypertension type: essential hypertension Qualified Code(s): I10 - Essential (primary) hypertension (4) Fall Encounter type: initial encounter Qualified Code(s): W19.XXXA - Unspecified fall, initial encounter
[2020-09-08] MEDS: VENLAFAXINE HCL XR 150 MG CAPXR PO SCH (19:59)
[2020-09-08] MEDS: ATORVASTATIN 40 MG TAB PO SCH (19:59)
[2020-09-08] MEDS: QUEtiapine FUMARATE 200 MG TAB PO SCH (19:59)
[2020-09-09] MEDS: ALBUTEROL HFA 8 GM INHALER INH SCH ×2 (07:09→19:51)
[2020-09-09] MEDS: IPRATROPIUM BROMIDE HFA INHALER INH SCH ×2 (07:10→19:51)
[2020-09-09] MEDS: FLUTICASONE/VILANTEROL 100/25MCG 14 PUFFS/INHALER INH SCH (08:17)
[2020-09-09] MEDS: FAMOTIDINE 40 MG TABLET PO SCH (08:18)
[2020-09-09] MEDS: CLOPIDOGREL BISULFATE 75 MG TAB PO SCH (08:18)
[2020-09-09] MEDS: TOLTERODINE TARTRATE LA 4 MG CAPCR PO SCH (08:18)
[2020-09-09] MEDS: cephALEXin 500 MG CAP PO SCH (08:18)
[2020-09-09] MEDS: GABAPENTIN 300 MG CAP PO SCH ×2 (08:18→20:31)
[2020-09-09] MEDS: LOSARTAN POTASSIUM 50 MG TAB PO SCH (08:18)
[2020-09-09 17:57] LABS: Appearance Urine Clear (Clear); Bilirubin Urine Negative (Negative); Blood Urine Negative (Negative); Color Urine Yellow; Glucose Urine UA Negative (Negative); Ketones Urine Negative (Negative); Leukocyte Esterase Urine Negative (Negative); Nitrite Urine Negative (Negative); Protein Urine Negative (Negative); Specific Gravity Urine 1.021 (1.000-1.030); Urobilinogen Urine Negative (Negative); pH Urine 6.5 (4.5-7.5)
--- NOTE | 2020-09-09 19:11 | Hospitalist Progress Note ---
Date of Service September 09, 2020 Assessment & Plan (1) Fall: Suspect 2nd to UTI and recent COVID-19 vaccination in setting of advanced MS. Neurology did feel this was an active ms flare deconditioning and some component for possible depression from wifes some metabolic encephalopathy from uti poa PT, OT. Both advising rehab. now weakness is worsened, will discuss with neurology in the am (2) UTI (urinary tract infection): 2nd e.coli, shepard sens. Rocephin. changed to keflex 500mg BID. consider treating for prostatitis minimum of 2 weeks. (3) Hypertension: Losartan 50mg po daily. (4) COPD (chronic obstructive pulmonary disease): Chronic. Stable. Cont inhalers (5) Multiple sclerosis: Patient on Natalizumab monthly. this maybe the fact that we are late on the Natalizumab. He follows with [facility] - last seen in clinic 09/01/20. Neurology consultation appreciated. No indication for steroid therapy now as there is no MS flare based on imaging. Continue Tolterodine & Gabapentin. (6) Depression with anxiety: Chronic. Stable Continue Venlafaxine Continue Seroquel qHS Continue Temazepam qHS (7) Gastro-esophageal reflux: Chronic. Stable Cont H2 marcus (8) Hemiparesis affecting right side as late effect of cerebrovascular accident: Continue Atorvastatin. Continue Plavix for secondary prevention. recent MRI brain with old CVAs but no new CVA ("Multiple old periventricular, bilateral basal ganglia, bilateral thalami lacunar infarcts" on MRI). (9) DVT prophylaxis: lovenox 40mg daily patient needing rehab -patient in agreement 09/06 Admission and Anticipated Discharge Date Admission Date: September 03, 2020 Subjective pt is weak today and will recheck labs did update family, continues to be very weak, is supportive of rehab, He continues to participate in physical therapy, for rehab not a MS flare according to neurology, with weakness consider if now changing will re evaluate in the am Review of Systems Review of Systems: Mild distress and fatigue no headache, blurry or double vision no speech or swallowing issues no chest pain, pressure or palpitations no shortness of breath, cough or wheezes no abdominal pain, nausea or vomiting, diarrhea or constipation no dysuria, hematuria or frequency no back pain, CVA tenderness or radicular pain no further issues with his face Baseline hemiparesis due to previous stroke no complaints of anxiety or depression.. Physical Exam Physical Exam: The patient appeared well nourished and normally developed. Vital signs as documented. Head exam is normocephalic resting eschars on right forehead and bridge of nose Neck is without JVD, thyromegaly, or carotid bruits. Lungs are clear to auscultation, no focal loss of breath sounds Cardiac exam, Rhythm is regular.. No murmurs, rubs or gallops. Abdominal exam reveals normal bowel sounds, soft non tender, no masses Extremities are various healed bruises of different ages. Right-sided weakness/hemiparesis Neurologic exam is alert and oriented, no focal loss of strength or sensation Skin is with bruises Psychologically is without concerns for anxiety or depression Results & Data Results & Data ([facility]) Vital Signs (Past 12 Hours) Vital Signs Temp Pulse Resp BP Pulse Ox 09/09/20 16:00 97.9 F 71 22 164/79 H 95 09/09/20 07:57 98.2 F 72 16 151/76 H 93 PG Care Time/CCT Total # of Minutes Spent Total Time Spent with Patient: Total time spent is greater than 50% in coordination of care (as documented) at patient's floor/unit and/or counseling patient: Coding Level of Care Code 07804 Subseq Hosp Care Lvl 3 Diagnoses Fall W19.XXXA Encounter type: initial encounter UTI (urinary tract infection) N39.0 Hypertension I10 Hypertension type: essential hypertension COPD (chronic obstructive pulmonary disease) J44.9 COPD type: unspecified COPD Multiple sclerosis G35 Depression with anxiety F41.8 Gastro-esophageal reflux K21.9 Esophagitis presence: esophagitis presence not specified Hemiparesis affecting right side as late effect of cerebrovascular accident I69.351 DVT prophylaxis Z29.9 (1) Fall Encounter type: initial encounter Qualified Code(s): W19.XXXA - Unspecified fall, initial encounter (2) Hypertension Hypertension type: essential hypertension Qualified Code(s): I10 - Essential (primary) hypertension (3) COPD (chronic obstructive pulmonary disease) COPD type: unspecified COPD Qualified Code(s): J44.9 - Chronic obstructive pulmonary disease, unspecified (4) Gastro-esophageal reflux Esophagitis presence: esophagitis presence not specified Qualified Code(s): K21.9 - Gastro-esophageal reflux disease without esophagitis
[2020-09-09 19:48] LABS: Hematocrit (blood only) 41.1 % (42-52); Hemoglobin 14.7 g/dL (14.0-18.0); Mean Corpuscular Hemoglobin 30.2 pg (25-34); Mean Corpuscular Hgb Conc 35.8 g/dL (32-36); Mean Corpuscular Volume 84.6 fL (80-100); Nucleated RBC # (auto) 0.03 K/uL (0-0); Nucleated RBC % (auto) 0.3 %; Platelet Count 305 K/uL (130-400); Red Blood Count 4.86 M/uL (4.7-6.1); White Blood Count 12.03 K/uL (4.8-10.8)
[2020-09-09 20:04] LABS: Albumin Level 3.2 gm/dl (3.4-5.0); Calcium 8.6 mg/dl (8.5-10.1); Creatinine Clr Calc Pharmacy 52.2 ml/min; Est GFR (African American) 74.3; Est GFR (Non-African American) 64.1; Potassium 4.4 mmol/L (3.5-5.1)
[2020-09-09 20:06] LABS: Albumin Globulin Ratio 0.8 (0.9-2); Bilirubin,Total 0.7 mg/dl (0.2-1); Globulin 4.2 gm/dl (2.5-4.0); Total Protein 7.4 gm/dl (6.4-8.2)
[2020-09-09] MEDS: VENLAFAXINE HCL XR 150 MG CAPXR PO SCH (20:29)
[2020-09-09] MEDS: QUEtiapine FUMARATE 200 MG TAB PO SCH (20:29)
[2020-09-09] MEDS: ATORVASTATIN 40 MG TAB PO SCH (20:31)
[2020-09-10 07:41] LABS: Hematocrit (blood only) 39.9 % (42-52); Hemoglobin 13.8 g/dL (14.0-18.0); Mean Corpuscular Hemoglobin 29.6 pg (25-34); Mean Corpuscular Hgb Conc 34.6 g/dL (32-36); Mean Corpuscular Volume 85.6 fL (80-100); Mean Platelet Volume 9.4 fL (7.4-10.4); Platelet Count 259 K/uL (130-400); RDW Coefficient of Variation 13.6 % (11.5-14.5); RDW Standard Deviation 42.3 fL (36.4-46.3); Red Blood Count 4.66 M/uL (4.7-6.1)
[2020-09-10] MEDS: ALBUTEROL HFA 8 GM INHALER INH SCH ×2 (07:48→19:35)
[2020-09-10] MEDS: IPRATROPIUM BROMIDE HFA INHALER INH SCH ×2 (07:48→19:35)
[2020-09-10 08:13] LABS: BUN Creatinine Ratio 27.3 (10-20); Calcium 8.7 mg/dl (8.5-10.1); Creatinine Clr Calc Pharmacy 59.6 ml/min; Est GFR (African American) 87.2; Est GFR (Non-African American) 75.2
--- NOTE | 2020-09-10 08:14 | Neurology Progress Note ---
Date of Service September 10, 2020 Assessment & Plan (1) Multiple sclerosis: (2) H/O: stroke: (3) Weakness: (4) Gait disturbance: (5) Fall: (6) Carotid stenosis, left: (7) Depression with anxiety: This patient has a longstanding history of multiple sclerosis, initially relapsing remitting and now with secondary progression. He has deteriorated significantly over the last year. He has lesions in his brain and cervical spine. He was admitted for weakness and falling with the urinary tract infection. Urinary tract infection has been treated. He was doing very well until the last 24 hours when he became "weaker". On neurologic examination he is remarkable for ataxia of the right arm and leg greater than the left arm and leg. He does have residual right upper extremity weakness ( from his left basal ganglia stroke last summer). Interestingly, he does not have any weakness of the legs. His gait is cautious and ataxic. Recent MRIs have shown no new MS lesions in the brain but possibly some extension in the cervical cord. The upper cord lesions may explain this. I do note on sagittal cube flare that he has mid brain and pontine lesions. He has been on Tysabri monthly, over 10 years, and has been COLLEEN positive. He knows the higher risk of PML but never has wanted to switch are changed because he "did so well over the years" on the Tysabri patient has 70 percent stenosis in the right internal carotid artery. He has an incidental 3 millimeter CIERRA aneurysm and some stenosis in the right posterior cerebral artery on CT angiography. 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 He is on multiple medications which have helped considerably. He no longer has an anger issue but has depression particularly increased since his has and earlier in August, his son. Recommendations: 1. Continue physical and occupational therapy. increase activity as able but he is a significant fall risk and needs supervision and an assistive device. 2. He really cannot live alone and will be [facility] a [facility] care. 3. Consider switching Tysabri to Ocrevus since he is progressing now on Tysabri ( and has longstanding high COLLEEN virus titer). We can make this switch as an outpatient. 4. Consider 1 gram IV Solu-Medrol to see if this improves his condition. Typically I would give 1 gram per day x3 days followed by a Medrol Dosepak. 5. Continue clopidogrel 75 milligrams daily for small vessel ischemic stroke prevention. 6. Continue Seroquel and venlafaxine for his mood disorder. There does not need to be any changes currently. 7. Continue gabapentin 300 milligrams twice daily for his limb discomfort and spasticity which has improved him. 8. Continue tolterodine long-acting 4 milligrams daily for his urinary incontinence. Overall, I spent a total of 75 minutes with this case, including review of records, review of all MRI films recently, direct evaluation the patient at bedside, and discussion of the case with the patient and RN at bedside, and Dr. Dhaliwal, including differential diagnosis and treatment options. Admission and Anticipated Discharge Date Admission Date: September 03, 2020 Subjective patient was admitted September 01 increasing falls and weakness. he struck his right forehead but had no loss of consciousness. There were no fractures. CT scan of the head was unremarkable. He was discovered to have an E coli UTI treated with antibiotics. He has some history of COPD, hypertension, and significant depression and anxiety on multiple medications. Back in the summer an MRI noted incidental left basal ganglia lesion that looked like a stroke. He had some right-sided weakness as well. he was switched from aspirin to clopidogrel. In February, he was admitted with left- sided weakness but The MRI showed a punctate left frontal acute lesion but no right-sided acute lesion. His left-sided weakness improved. He still has right upper extremity weakness. In February, CT angiography showed 70 percent stenosis in the right internal carotid artery. There was stenosis in the right posterior cerebral artery and a 3 millimeter incidental aneurysm in the anterior communicating artery. MRI September 02 of the brain with without contrast showed no acute infarcts, patchy white matter changes that were unchanged from previous and multiple old lacunes. MRI of the cervical spine showed multiple T2 lesions within the cord increased in conspicuity compared to December of 2019. there are no new lesions. He had osteoarthritic changes particularly at C5 through C7. MRI of the thoracic spine was largely unremarkable. Patient was doing very well and was about to be transferred to [facility] but he started getting weaker and less able to walk over the last 24 hours. Patient has no complaint of pain or headache. He has no neck pain. He is not dizzy. He does have a little bit of blurry vision and has a general sense of weakness and fatigue. His mood is not doing very well either. He has no new numbness but does have incontinence of urine. He thinks the weakness is in his legs and both of the same. He is not sure of his arms. Recent laboratory studies reveal very mild anemia on CBC and Chem profile which shows a very mild elevated BUN. Yesterday ALT was 83 and alk-phos 126. TSH is 2.0. On September 01, a B12 was 877 and a B1 level was 11. also in August a vitamin-D level was 51 Today blood pressure is 152/89. Results & Data ([facility]) Vital Signs (Past 12 Hours) Vital Signs Temp Pulse Resp BP Pulse Ox 09/10/20 07:48 80 20 92 09/09/20 22:45 36.6 C 75 17 158/82 H 92 Exam (Neuro) Physical Exam: The patient is right-handed. The patient is awake, alert, and attentive. Speech was not technically aphasic or dysarthric, but he did seem slow to respond ( although he was accurate). He was oriented to name, place, age, day, month, year, and president. He was a little slow to answer (but again accurate). Mood seem reasonable but affect was flat. He followed commands well and was otherwise cooperative. Pupils are 3 mm bilaterally and reactive to light. Extraocular eye muscles are intact without nystagmus. Visual acuity and visual glover seem normal grossly to confrontation. There are no deficits to sensation in the face in all 3 distributions of the fifth cranial nerve bilaterally. Corneal reflexes are positive bilaterally. Facial strength and symmetry was normal bilaterally. Hearing seems normal to whisper and finger rub bilaterally. Palate moves well without asymmetry. There is normal sternocleidomastoid and trapezius (shoulder shrug) strength bilaterally. Tongue is midline with good strength bilaterally. Neck has a full range of motion without discomfort. There are no cervical bruits bilaterally. There are no cranial or ocular bruits. Heart is without murmur. There is a regular rhythm and rate. Cervical, thoracic, and lumbar spine are nontender to palpation. Gait is wide based and seems ataxic walking and with turns. With outstretched arms there is a mild drift on the right. There are no resting tremors, but there may have been some mild action tremor in the left upper extremity only. There was ataxia with finger to nose testing in both arms right much greater than legs. There was dysmetria and clumsiness in both hands right greater than left side. There was ataxia left greater than right with heel to varma testing and dysmetria with the feet right greater than left side. Motor strength is 5/5 diffusely in the Left upper extremity including deltoids, biceps, triceps, brachioradialis, wrist flexors and extensors, property utilization officer, and intrinsic hand muscles. the right upper extremity was 4/5 Approximately and closer to 5/5 distally. Motor strength is 5/5 diffusely in the legs bilaterally including hip flexors, quadriceps, hamstrings, gastrocnemius, tibialis anterior, tibialis posterior, and Peroneii muscles. Toe extensors are normal and there is good bulk in the extensor digitorum brevis muscles bilaterally. The limbs have good tone without rigidity or spasticity. There is no atrophy noted in the muscles. Muscle bulk is normal, there is no tenderness to palpation, no myotonia to percussion, and no fasciculations seen. Sensory examination is intact to touch and pin throughout all 4 limbs diffusely. Reflexes are 2/4 in the biceps, triceps, brachioradialis, quadriceps, and Achilles tendons bilaterally. There is no clonus bilaterally. Toes are downgoing with plantar stimulation bilaterally. Peripheral pulses are present and of normal quality distally in all 4 limbs. There is no peripheral edema noted in the limbs. PG Care Time/CCT Total # of Minutes Spent Total Time Spent with Patient: Total time spent is greater than 50% in coordination of care (as documented) at patient's floor/unit and/or counseling patient: Coding Level of Care Code 45734 Subseq Hosp Care Lvl 3 Diagnoses Multiple sclerosis G35 H/O: stroke Z86.73 Weakness R53.1 Gait disturbance R26.9 Fall W19.XXXA Encounter type: initial encounter Carotid stenosis, left I65.22 Depression with anxiety F41.8 Time Spent (min) 75 Comment Add extenders as able (1) Fall Encounter type: initial encounter Qualified Code(s): W19.XXXA - Unspecified fall, initial encounter
[2020-09-10 08:24] LABS: Thyroid Stimulating Hormone 2.05 uIu/ml (0.300-4.500)
[2020-09-10] MEDS: GABAPENTIN 300 MG CAP PO SCH ×2 (09:05→20:29)
[2020-09-10] MEDS: FLUTICASONE/VILANTEROL 100/25MCG 14 PUFFS/INHALER INH SCH (09:05)
[2020-09-10] MEDS: LOSARTAN POTASSIUM 50 MG TAB PO SCH (09:05)
[2020-09-10] MEDS: TOLTERODINE TARTRATE LA 4 MG CAPCR PO SCH (09:06)
[2020-09-10] MEDS: CLOPIDOGREL BISULFATE 75 MG TAB PO SCH (09:06)
[2020-09-10] MEDS: FAMOTIDINE 40 MG TABLET PO SCH (09:06)
[2020-09-10] MEDS ORDERED: methylPREDNISolone 1,000 MG in DEXTROSE 5% 250 ML IV STA (09:22)
[2020-09-10] MEDS ORDERED: hydrALAZINE HCL 20 MG/ML VIAL IV PRN (17:44)
--- NOTE | 2020-09-10 17:51 | Hospitalist Progress Note ---
Date of Service September 10, 2020 Assessment & Plan (1) Fall: Suspect 2nd to UTI and recent COVID-19 vaccination in setting of advanced MS. Neurology did feel this was an active ms flare deconditioning and some component for possible depression from wifes some metabolic encephalopathy from uti poa now concern of MS flare and progression that was not present earlier in stay neurology recommended high dose pulse steroids (2) UTI (urinary tract infection): 2nd e.coli, shepard sens. Rocephin. changed to keflex 500mg BID. consider treating for prostatitis minimum of 2 weeks. (3) Hypertension: Losartan 50mg po daily. since steroids added elevated bp will add hydralazine prn (4) COPD (chronic obstructive pulmonary disease): Chronic. Stable. Cont inhalers (5) Multiple sclerosis: Patient on Natalizumab monthly. this maybe the fact that we are late on the Natalizumab. He follows with [facility] - last seen in clinic 09/01/20. Neurology consultation appreciated. now will provide pulse steroids Continue Gabapentin. consider switching tolterodine to Ocrevus (6) Depression with anxiety: Chronic. Stable Continue Venlafaxine Continue Seroquel qHS Continue Temazepam qHS (7) Gastro-esophageal reflux: Chronic. Stable Cont H2 marcus (8) Hemiparesis affecting right side as late effect of cerebrovascular accident: Continue Atorvastatin. Continue Plavix for secondary prevention. recent MRI brain with old CVAs but no new CVA ("Multiple old periventricular, bilateral basal ganglia, bilateral thalami lacunar infarcts" on MRI). (9) DVT prophylaxis: lovenox 40mg daily patient needing rehab -patient in agreement /5 Admission and Anticipated Discharge Date Admission Date: September 03, 2020 Subjective Patient is having some ataxia and tremulousness. Neurology saw the patient feels he in an MS flare. He recommends pulse dosing with Solu-Medrol. Patient is in agreement with this. There was also consideration of changing his outpatient MS treatment to possible mild progression of disease Review of Systems Review of Systems: Mild distress and fatigue no headache, blurry or double vision no speech or swallowing issues no chest pain, pressure or palpitations no shortness of breath, cough or wheezes no abdominal pain, nausea or vomiting, diarrhea or constipation no dysuria, hematuria or frequency no focal joint pain or swelling no back pain, CVA tenderness or radicular pain no bruising, bleeding or rashes no focal signs of weakness she has some tremulousness and coordination difficulties no complaints of anxiety or depression.. Physical Exam Physical Exam: The patient appeared well nourished and normally developed. Vital signs as documented. Head exam is normocephalic healing well almost gone Neck is without JVD, thyromegaly, or carotid bruits. Lungs are clear to auscultation, no focal loss of breath sounds Cardiac exam, Rhythm is regular.. Systolic ejection murmur is present Abdominal exam reveals normal bowel sounds, soft non tender, no masses Extremities are nonedematous and both pedal pulses are present Neurologic exam is alert and oriented, patient now has lost ability to walk due to some ataxia he has some peripheral neuropathy also present Skin is without bruises or rashes Psychologically is without concerns for anxiety or depression Results & Data Results & Data ([facility]) Vital Signs (Past 12 Hours) Vital Signs Temp Pulse Pulse Resp BP Pulse Ox 09/10/20 16:47 98.4 F 88 18 185/93 H 92 09/10/20 07:55 97.7 F 70 18 152/89 H 96 09/10/20 07:48 80 20 92 PG Care Time/CCT Total # of Minutes Spent Total Time Spent with Patient: Total time spent is greater than 50% in coordination of care (as documented) at patient's floor/unit and/or counseling patient: Coding Level of Care Code 48921 Subseq Hosp Care Lvl 3 Diagnoses Fall W19.XXXA Encounter type: initial encounter UTI (urinary tract infection) N39.0 Hypertension I10 Hypertension type: essential hypertension COPD (chronic obstructive pulmonary disease) J44.9 COPD type: unspecified COPD Multiple sclerosis G35 Depression with anxiety F41.8 Gastro-esophageal reflux K21.9 Esophagitis presence: esophagitis presence not specified Hemiparesis affecting right side as late effect of cerebrovascular accident I69.351 DVT prophylaxis Z29.9 (1) Fall Encounter type: initial encounter Qualified Code(s): W19.XXXA - Unspecified fall, initial encounter (2) Hypertension Hypertension type: essential hypertension Qualified Code(s): I10 - Essential (primary) hypertension (3) COPD (chronic obstructive pulmonary disease) COPD type: unspecified COPD Qualified Code(s): J44.9 - Chronic obstructive pulmonary disease, unspecified (4) Gastro-esophageal reflux Esophagitis presence: esophagitis presence not specified Qualified Code(s): K21.9 - Gastro-esophageal reflux disease without esophagitis
[2020-09-10] MEDS: VENLAFAXINE HCL XR 150 MG CAPXR PO SCH (20:29)
[2020-09-10] MEDS: QUEtiapine FUMARATE 200 MG TAB PO SCH (20:29)
[2020-09-10] MEDS: ATORVASTATIN 40 MG TAB PO SCH (20:30)
[2020-09-10 20:49] LABS: JCV Antibody POSITIVE
[2020-09-11 06:14] LABS: Hematocrit (blood only) 39.1 % (42-52); Hemoglobin 13.6 g/dL (14.0-18.0); Mean Corpuscular Hemoglobin 29.3 pg (25-34); Mean Corpuscular Hgb Conc 34.8 g/dL (32-36); Mean Corpuscular Volume 84.3 fL (80-100); Mean Platelet Volume 9.8 fL (7.4-10.4); Platelet Count 276 K/uL (130-400); RDW Coefficient of Variation 13.4 % (11.5-14.5); RDW Standard Deviation 40.4 fL (36.4-46.3); Red Blood Count 4.64 M/uL (4.7-6.1); White Blood Count 13.94 K/uL (4.8-10.8)
[2020-09-11 06:46] LABS: BUN Creatinine Ratio 29.1 (10-20); Calcium 8.7 mg/dl (8.5-10.1); Creatinine Clr Calc Pharmacy 70.2 ml/min; Est GFR (African American) 100.7; Est GFR (Non-African American) 86.9; Potassium 3.9 mmol/L (3.5-5.1)
[2020-09-11] MEDS: ALBUTEROL HFA 8 GM INHALER INH SCH ×2 (08:02→20:09)
[2020-09-11] MEDS: IPRATROPIUM BROMIDE HFA INHALER INH SCH ×2 (08:03→20:09)
[2020-09-11] MEDS: LOSARTAN POTASSIUM 50 MG TAB PO SCH (08:34)
[2020-09-11] MEDS: GABAPENTIN 300 MG CAP PO SCH ×2 (08:34→20:04)
[2020-09-11] MEDS: FAMOTIDINE 40 MG TABLET PO SCH (08:35)
[2020-09-11] MEDS: TOLTERODINE TARTRATE LA 4 MG CAPCR PO SCH (08:35)
[2020-09-11] MEDS: CLOPIDOGREL BISULFATE 75 MG TAB PO SCH (08:35)
[2020-09-11] MEDS: FLUTICASONE/VILANTEROL 100/25MCG 14 PUFFS/INHALER INH SCH (08:35)
--- NOTE | 2020-09-11 09:33 | Neurology Progress Note ---
Date of Service September 11, 2020 Assessment & Plan (1) Weakness: (2) Gait disturbance: (3) Fall: (4) Carotid stenosis, left: (5) Depression with anxiety: This patient has a longstanding history of multiple sclerosis, initially relapsing remitting and now with secondary progression. He has deteriorated significantly over the last year. He has lesions in his brain and cervical spine. He was admitted for weakness and falling with the urinary tract infection. Urinary tract infection has been treated. He was doing very well until the last 24 hours when he became "weaker". On neurologic examination he is remarkable for ataxia of the right arm and leg greater than the left arm and leg. He does have residual right upper extremity weakness ( from his left basal ganglia stroke last summer). Interestingly, he does not have any weakness of the legs. His gait is cautious and ataxic. Recent MRIs have shown no new MS lesions in the brain but possibly some extension in the cervical cord. The upper cord lesions may explain this. I do note on the sagittal cube flare (of the brain MRI) that he has mid brain and pontine lesions. He has been on Tysabri monthly, over 10 years, and has been COLLEEN positive. He knows the higher risk of PML but never has wanted to switch are changed because he "did so well over the years" on the Tysabri Patient has 70 percent stenosis in the right internal carotid artery. He has an incidental 3 millimeter CIERRA aneurysm and some stenosis in the right posterior cerebral artery on CT angiography. 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 He is on multiple medications which have helped considerably. He no longer has an anger issue but has depression particularly increased since his has and earlier in August, his son. Recommendations: 1. Continue physical and occupational therapy. increase activity as able but he is a significant fall risk and needs supervision and an assistive device. 2. He really cannot live alone and will be sent to a [facility] for ongoing care. 3. Consider switching Tysabri to Ocrevus since he is progressing now on Tysabri ( and has longstanding high COLLEEN virus titer). We can make this switch as an outpatient. 4. Give 1 gram IV Solu-Medrol today and repeat tomorrow (for a total of 1 gram per day x3 days) followed by a Medrol Dosepak. 5. Continue clopidogrel 75 milligrams daily for small vessel ischemic stroke prevention. 6. Continue Seroquel and venlafaxine for his mood disorder. There does not need to be any changes currently. 7. Continue gabapentin 300 milligrams twice daily for his limb discomfort and spasticity which has improved him. 8. Continue tolterodine long-acting 4 milligrams daily for his urinary incontinence. Overall, I spent a total of 25 minutes with this case, including review of records, review of all MRI films recently, direct evaluation the patient at bedside, and discussion of the case with the patient and RN at bedside, and Dr. Dhaliwal, including differential diagnosis and treatment options. Admission and Anticipated Discharge Date Admission Date: September 03, 2020 Subjective Patient feels about the same today as he did yesterday. He has no new symptoms. He feels "a little shaky" when he tries to use his limbs or walk. He has no pain or headache. He received 1 gram IV Solu-Medrol yesterday. Blood pressure is 153/81 this morning. CBC shows mildly elevated white count and very mild anemia. Chem profile was unremarkable glucose was 99. Results & Data ([facility]) Vital Signs (Past 12 Hours) Vital Signs Temp Pulse Resp BP BP Pulse Ox 09/11/20 08:04 71 16 96 09/11/20 07:15 36.4 C L 70 16 153/81 H 95 09/11/20 02:30 86 119/86 09/10/20 22:06 37 C 92 H 16 161/91 H 93 Exam (Neuro) Physical Exam: he is awake and alert. Speech is without aphasia or dysarthria. Mood is reasonable affect is appropriate and thought processes are reasonable to conversation. He has ataxia of the limbs as he did yesterday although they seem slightly less prominent today. There is some tremor in the left upper extremity. Strength is symmetrical and normal in all 4 limbs. Extraocular eye muscles are intact without nystagmus and there is no obvious facial droop. PG Care Time/CCT Total # of Minutes Spent Total Time Spent with Patient: Total time spent is greater than 50% in coordination of care (as documented) at patient's floor/unit and/or counseling patient: Coding Level of Care Code 56264 Subseq Hosp Care Lvl 2 Diagnoses Weakness R53.1 Gait disturbance R26.9 Fall W19.XXXA Encounter type: initial encounter Carotid stenosis, left I65.22 Depression with anxiety F41.8 Time Spent (min) 25 (1) Fall Encounter type: initial encounter Qualified Code(s): W19.XXXA - Unspecified fall, initial encounter
--- NOTE | 2020-09-11 19:18 | Hospitalist Progress Note ---
Date of Service September 11, 2020 Assessment & Plan (1) Multiple sclerosis: Now with increased ataxia and some weakness neurology consultation feels this may be an MS flare. There is some changes on imaging once reviewed retrospectively. Pulse steroids over 1000 mg of Solu-Medrol daily for 3 days. Continue Gabapentin. consider switching tolterodine to Ocrevus We will consider if this affects his fitness to go to subacute rehab versus acute rehab once case management returns on Sunday (2) UTI (urinary tract infection): 2nd e.coli, shepard sens. Rocephin. changed to keflex 500mg BID. consider treating for prostatitis minimum of 2 weeks. (3) Fall: Suspect 2nd to UTI and recent COVID-19 vaccination in setting of advanced MS. Neurology did feel this was an active ms flare deconditioning and some component for possible depression from wifes some metabolic encephalopathy from uti poa now concern of MS flare and progression that was not present earlier in stay neurology recommended high dose pulse steroids (4) Hypertension: Losartan 50mg po daily. since steroids added elevated bp will add hydralazine prn (5) COPD (chronic obstructive pulmonary disease): Chronic. Stable. Cont inhalers (6) Depression with anxiety: Chronic. Stable Continue Venlafaxine Continue Seroquel qHS Continue Temazepam qHS (7) Gastro-esophageal reflux: Chronic. Stable Cont H2 marcus (8) Hemiparesis affecting right side as late effect of cerebrovascular accident: Continue Atorvastatin. Continue Plavix for secondary prevention. recent MRI brain with old CVAs but no new CVA ("Multiple old periventricular, bilateral basal ganglia, bilateral thalami lacunar infarcts" on MRI). (9) DVT prophylaxis: lovenox 40mg daily patient needing rehab -patient in agreement 4/5 Admission and Anticipated Discharge Date Admission Date: September 03, 2020 Subjective Patient feels about the same today as he did yesterday. Actively he does look so much better He received 1 gram IV Solu-Medrol will continue with Solu-Medrol 1 g daily for 3 doses total Review of Systems Review of Systems: Mild distress and fatigue no headache, blurry or double vision no speech or swallowing issues no chest pain, pressure or palpitations no shortness of breath, cough or wheezes no abdominal pain, nausea or vomiting, diarrhea or constipation no dysuria, hematuria or frequency no focal joint pain or swelling no back pain, CVA tenderness or radicular pain no bruising, bleeding or rashes no focal signs of weakness she has some tremulousness and coordination difficulties no complaints of anxiety or depression.. Physical Exam Physical Exam: The patient appeared well nourished and normally developed. Vital signs as documented. Head exam is normocephalic healing well almost gone Neck is without JVD, thyromegaly, or carotid bruits. Lungs are clear to auscultation, no focal loss of breath sounds Cardiac exam, Rhythm is regular.. Systolic ejection murmur is present Abdominal exam reveals normal bowel sounds, soft non tender, no masses Extremities are nonedematous and both pedal pulses are present Neurologic exam is alert and oriented, patient now has lost ability to walk due to some ataxia he has some peripheral neuropathy also present Skin is without bruises or rashes Psychologically is without concerns for anxiety or depression Results & Data Results & Data ([facility]) Vital Signs (Past 12 Hours) Vital Signs Temp Pulse Resp BP Pulse Ox 09/11/20 16:05 97.9 F 72 18 150/79 H 94 09/11/20 08:04 71 16 96 PG Care Time/CCT Total # of Minutes Spent Total Time Spent with Patient: Total time spent is greater than 50% in coordination of care (as documented) at patient's floor/unit and/or counseling patient: Coding Level of Care Code 35393 Subseq Hosp Care Lvl 3 Diagnoses Multiple sclerosis G35 UTI (urinary tract infection) N39.0 Fall W19.XXXA Encounter type: initial encounter Hypertension I10 Hypertension type: essential hypertension COPD (chronic obstructive pulmonary disease) J44.9 COPD type: unspecified COPD Depression with anxiety F41.8 Gastro-esophageal reflux K21.9 Esophagitis presence: esophagitis presence not specified Hemiparesis affecting right side as late effect of cerebrovascular accident I69.351 DVT prophylaxis Z29.9 (1) Fall Encounter type: initial encounter Qualified Code(s): W19.XXXA - Unspecified fall, initial encounter (2) Hypertension Hypertension type: essential hypertension Qualified Code(s): I10 - Essential (primary) hypertension (3) COPD (chronic obstructive pulmonary disease) COPD type: unspecified COPD Qualified Code(s): J44.9 - Chronic obstructive pulmonary disease, unspecified (4) Gastro-esophageal reflux Esophagitis presence: esophagitis presence not specified Qualified Code(s): K21.9 - Gastro-esophageal reflux disease without esophagitis
[2020-09-11] MEDS: ATORVASTATIN 40 MG TAB PO SCH (20:04)
[2020-09-11] MEDS: QUEtiapine FUMARATE 200 MG TAB PO SCH (20:04)
[2020-09-11] MEDS: VENLAFAXINE HCL XR 150 MG CAPXR PO SCH (20:05)
[2020-09-12] MEDS ORDERED: IBUPROFEN 200 MG TAB PO PRN (05:04)
[2020-09-12 06:27] LABS: Hematocrit (blood only) 40.1 % (42-52); Hemoglobin 14.1 g/dL (14.0-18.0); Mean Corpuscular Hemoglobin 30.1 pg (25-34); Mean Corpuscular Hgb Conc 35.2 g/dL (32-36); Mean Corpuscular Volume 85.5 fL (80-100); Platelet Count 275 K/uL (130-400); RDW Coefficient of Variation 13.8 % (11.5-14.5); RDW Standard Deviation 42.9 fL (36.4-46.3); Red Blood Count 4.69 M/uL (4.7-6.1)
[2020-09-12 06:55] LABS: BUN Creatinine Ratio 31.2 (10-20); Calcium 8.8 mg/dl (8.5-10.1); Creatinine Clr Calc Pharmacy 86.2 ml/min; Est GFR (African American) 95.3; Est GFR (Non-African American) 82.2; Potassium 3.9 mmol/L (3.5-5.1)
[2020-09-12] MEDS: ALBUTEROL HFA 8 GM INHALER INH SCH ×2 (06:59→19:12)
[2020-09-12] MEDS: IPRATROPIUM BROMIDE HFA INHALER INH SCH ×2 (06:59→19:12)
[2020-09-12] MEDS: FLUTICASONE/VILANTEROL 100/25MCG 14 PUFFS/INHALER INH SCH (08:10)
[2020-09-12] MEDS: TOLTERODINE TARTRATE LA 4 MG CAPCR PO SCH (08:11)
[2020-09-12] MEDS: FAMOTIDINE 40 MG TABLET PO SCH (08:11)
[2020-09-12] MEDS: CLOPIDOGREL BISULFATE 75 MG TAB PO SCH (08:11)
[2020-09-12] MEDS: GABAPENTIN 300 MG CAP PO SCH ×2 (08:11→20:07)
[2020-09-12] MEDS: LOSARTAN POTASSIUM 50 MG TAB PO SCH (08:11)
[2020-09-12] MEDS ORDERED: methylPREDNISolone 1,000 MG in DEXTROSE 5% 250 ML IV ONE (11:30)
--- NOTE | 2020-09-12 17:58 | Hospitalist Progress Note ---
Date of Service September 12, 2020 Assessment & Plan (1) Multiple sclerosis: Now with increased ataxia and some weakness neurology consultation feels this may be an MS flare. There is some changes on imaging once reviewed retrospectively. Pulse steroids over 1000 mg of Solu-Medrol daily for 3 days. Continue Gabapentin. consider switching tolterodine to Ocrevus We will consider if this affects his fitness to go to subacute rehab versus acute rehab once case management returns on Sunday (2) UTI (urinary tract infection): 2nd e.coli, shepard sens. Rocephin. changed to keflex 500mg BID. consider treating for prostatitis minimum of 2 weeks. (3) Fall: Suspect 2nd to UTI and recent COVID-19 vaccination in setting of advanced MS. Neurology did feel this was an active ms flare deconditioning and some component for possible depression from wifes some metabolic encephalopathy from uti poa now concern of MS flare and progression that was not present earlier in stay neurology recommended high dose pulse steroids (4) Hypertension: Losartan 50mg po daily. since steroids added elevated bp will add hydralazine prn (5) COPD (chronic obstructive pulmonary disease): Chronic. Stable. Cont inhalers (6) Depression with anxiety: Chronic. Stable Continue Venlafaxine Continue Seroquel qHS Continue Temazepam qHS (7) Gastro-esophageal reflux: Chronic. Stable Cont H2 marcus (8) Hemiparesis affecting right side as late effect of cerebrovascular accident: Continue Atorvastatin. Continue Plavix for secondary prevention. recent MRI brain with old CVAs but no new CVA ("Multiple old periventricular, bilateral basal ganglia, bilateral thalami lacunar infarcts" on MRI). (9) DVT prophylaxis: lovenox 40mg daily patient needing rehab -patient in agreement 4/5 Admission and Anticipated Discharge Date Admission Date: September 03, 2020 Subjective Patient feels about the same today as he did yesterday. Actively he does look so much better He received 1 gram IV Solu-Medrol will continue with Solu-Medrol 1 g daily for 3 doses total last dose 09/13/20 Review of Systems Review of Systems: Mild distress and fatigue no headache, blurry or double vision no speech or swallowing issues no chest pain, pressure or palpitations no shortness of breath, cough or wheezes no abdominal pain, nausea or vomiting, diarrhea or constipation no dysuria, hematuria or frequency no focal joint pain or swelling no back pain, CVA tenderness or radicular pain no bruising, bleeding or rashes no focal signs of weakness she has some tremulousness and coordination difficulties no complaints of anxiety or depression.. Physical Exam Physical Exam: The patient appeared well nourished and normally developed. Vital signs as documented. Head exam is normocephalic healing well almost gone Neck is without JVD, thyromegaly, or carotid bruits. Lungs are clear to auscultation, no focal loss of breath sounds Cardiac exam, Rhythm is regular.. Systolic ejection murmur is present Abdominal exam reveals normal bowel sounds, soft non tender, no masses Extremities are nonedematous and both pedal pulses are present Neurologic exam is alert and oriented, patient now has lost ability to walk due to some ataxia he has some peripheral neuropathy also present Skin is without bruises or rashes Psychologically is without concerns for anxiety or depression Results & Data Results & Data ([facility]) Vital Signs (Past 12 Hours) Vital Signs Temp Pulse Resp BP BP Pulse Ox 09/12/20 15:30 97.7 F 80 18 166/89 H 92 09/12/20 07:45 97.5 F L 68 16 174/91 H 95 09/12/20 06:59 72 16 93 PG Care Time/CCT Total # of Minutes Spent Total Time Spent with Patient: Total time spent is greater than 50% in coordination of care (as documented) at patient's floor/unit and/or counseling patient: Coding Level of Care Code 99871 Subseq Hosp Care Lvl 2 Diagnoses Multiple sclerosis G35 UTI (urinary tract infection) N39.0 Fall W19.XXXA Encounter type: initial encounter Hypertension I10 Hypertension type: essential hypertension COPD (chronic obstructive pulmonary disease) J44.9 COPD type: unspecified COPD Depression with anxiety F41.8 Gastro-esophageal reflux K21.9 Esophagitis presence: esophagitis presence not specified Hemiparesis affecting right side as late effect of cerebrovascular accident I69.351 DVT prophylaxis Z29.9 (1) Fall Encounter type: initial encounter Qualified Code(s): W19.XXXA - Unspecified fall, initial encounter (2) Hypertension Hypertension type: essential hypertension Qualified Code(s): I10 - Essential (primary) hypertension (3) COPD (chronic obstructive pulmonary disease) COPD type: unspecified COPD Qualified Code(s): J44.9 - Chronic obstructive pulmonary disease, unspecified (4) Gastro-esophageal reflux Esophagitis presence: esophagitis presence not specified Qualified Code(s): K21.9 - Gastro-esophageal reflux disease without esophagitis
[2020-09-12] MEDS: VENLAFAXINE HCL XR 150 MG CAPXR PO SCH (20:06)
[2020-09-12] MEDS: ATORVASTATIN 40 MG TAB PO SCH (20:07)
[2020-09-12] MEDS: QUEtiapine FUMARATE 200 MG TAB PO SCH (20:07)
[2020-09-13 07:05] LABS: Hematocrit (blood only) 40.2 % (42-52); Hemoglobin 14.3 g/dL (14.0-18.0); Mean Corpuscular Hemoglobin 29.6 pg (25-34); Mean Corpuscular Hgb Conc 35.6 g/dL (32-36); Mean Corpuscular Volume 83.2 fL (80-100); Mean Platelet Volume 9.9 fL (7.4-10.4); Nucleated RBC # (auto) 0.02 K/uL (0-0); Nucleated RBC % (auto) 0.2 %; Platelet Count 286 K/uL (130-400); RDW Coefficient of Variation 13.3 % (11.5-14.5); Red Blood Count 4.83 M/uL (4.7-6.1); White Blood Count 12.63 K/uL (4.8-10.8)
[2020-09-13 07:33] LABS: Calcium 8.8 mg/dl (8.5-10.1); Creatinine Clr Calc Pharmacy 97.9 ml/min; Est GFR (African American) 102.2; Est GFR (Non-African American) 88.2
[2020-09-13] MEDS: IPRATROPIUM BROMIDE HFA INHALER INH SCH ×2 (07:46→19:26)
[2020-09-13] MEDS: ALBUTEROL HFA 8 GM INHALER INH SCH ×2 (07:46→19:26)
[2020-09-13] MEDS ORDERED: methylPREDNISolone 1,000 MG in DEXTROSE 5% 250 ML IV ONE (08:00)
[2020-09-13] MEDS: TOLTERODINE TARTRATE LA 4 MG CAPCR PO SCH (08:12)
[2020-09-13] MEDS: CLOPIDOGREL BISULFATE 75 MG TAB PO SCH (08:12)
[2020-09-13] MEDS: FAMOTIDINE 40 MG TABLET PO SCH (08:12)
[2020-09-13] MEDS: FLUTICASONE/VILANTEROL 100/25MCG 14 PUFFS/INHALER INH SCH (08:12)
[2020-09-13] MEDS: GABAPENTIN 300 MG CAP PO SCH ×2 (08:12→20:47)
[2020-09-13] MEDS: LOSARTAN POTASSIUM 50 MG TAB PO SCH (08:12)
--- NOTE | 2020-09-13 13:07 | Hospitalist Progress Note ---
Date of Service September 13, 2020 Assessment & Plan (1) Multiple sclerosis: Now with increased ataxia and some weakness neurology consultation feels this may be an MS flare. - Finished Solu-Medrol 1,000 mg IV daily x 3 days (Last dose: 09/13/2020) - Continue gabapentin. - Consider switching tolterodine to Ocrevus as outpatient. - Per neurology, transition to Medrol dosepak steroid taper. - Rehab per PT/OT (2) UTI (urinary tract infection): 2nd e.coli, shepard sensitive. - Was on Rocephin. Changed to keflex 500mg BID on 09/04/2020. Finished abx on 09/09/2020. - No present symptoms. (3) Fall: Suspect 2nd to UTI and recent COVID-19 vaccination in setting of advanced MS. Neurology did feel this was an active MS flare. - PT/OT -> Plan for rehab (4) Hypertension: BP today is 155/95. - Continue losartan 50mg po daily. - Hydralazine PRN (5) COPD (chronic obstructive pulmonary disease): Chronic. Stable. - Continue inhalers Breo (maintenance) - DuoNebs standing BID & PRN (6) Depression with anxiety: Chronic. Stable. - Continue venlafaxine, Seroquel qHS, and temazepam qHS (7) Gastro-esophageal reflux: Chronic. Stable. - Continue H2 marcus (8) Hemiparesis affecting right side as late effect of cerebrovascular accident: MRI brain on 09/02/2020 with old CVAs but no new CVA ("Multiple old periventricular, bilateral basal ganglia, bilateral thalami lacunar infarcts" on MRI). - Continue atorvastatin. - Continue Plavix (9) DVT prophylaxis: Lovenox 40 mg SQ daily Admission and Anticipated Discharge Date Admission Date: September 03, 2020 Subjective Stable today. He reports possibly a little less unsteadiness, but no other major issues. Reports no fevers/chills, chest pain, shortness of breath, abdominal pain, nausea, or vomiting. Physical Exam Constitutional: WD/WN, vitals as above Eyes: EOM intact bilaterally; no conjunctival abnormality ENMT: external ear and nose normal, oropharynx normal Neck: trachea midline, no thyromegaly normal visual inspection Respiratory: normal respiratory effort, lungs clear to auscultation no respiratory distress Cardiovascular: RRR, no murmur, no edema Gastrointestinal (Abdomen): Inspection/Auscultation: abdomen normal to inspection; abdomen not distended Musculoskeletal: no cyanosis or clubbing, extremities motor strength 5/5 Skin: no rashes, warm and dry Neurologic: moves all extremities and awake Psychiatric: Orientation: alert, oriented to person and cooperative Results & Data Results & Data ([facility]) Vital Signs (Past 12 Hours) Vital Signs Temp Pulse Resp BP Pulse Ox 09/13/20 07:46 83 16 95 09/13/20 07:45 36.9 C 82 16 155/96 H 93 PG Care Time/CCT Total # of Minutes Spent Total Time Spent with Patient: Total time spent is greater than 50% in coordination of care (as documented) at patient's floor/unit and/or counseling patient: Coding Level of Care Code 05687 Subseq Hosp Care Lvl 3 Diagnoses Multiple sclerosis G35 UTI (urinary tract infection) N39.0 Fall W19.XXXA Encounter type: initial encounter Hypertension I10 Hypertension type: essential hypertension COPD (chronic obstructive pulmonary disease) J44.9 COPD type: unspecified COPD Depression with anxiety F41.8 Gastro-esophageal reflux K21.9 Esophagitis presence: esophagitis presence not specified Hemiparesis affecting right side as late effect of cerebrovascular accident I69.351 DVT prophylaxis Z29.9 (1) Fall Encounter type: initial encounter Qualified Code(s): W19.XXXA - Unspecified fall, initial encounter (2) Hypertension Hypertension type: essential hypertension Qualified Code(s): I10 - Essential (primary) hypertension (3) COPD (chronic obstructive pulmonary disease) COPD type: unspecified COPD Qualified Code(s): J44.9 - Chronic obstructive pulmonary disease, unspecified (4) Gastro-esophageal reflux Esophagitis presence: esophagitis presence not specified Qualified Code(s): K21.9 - Gastro-esophageal reflux disease without esophagitis
[2020-09-13] MEDS: VENLAFAXINE HCL XR 150 MG CAPXR PO SCH (20:47)
[2020-09-13] MEDS: ATORVASTATIN 40 MG TAB PO SCH (20:47)
[2020-09-13] MEDS: QUEtiapine FUMARATE 200 MG TAB PO SCH (20:48)
[2020-09-14] MEDS: methylPREDNISolone 4 MG TAB PO SCH ×4 (06:17→21:23)
[2020-09-14 06:45] LABS: Hemoglobin 14.5 g/dL (14.0-18.0); Mean Corpuscular Hgb Conc 36.3 g/dL (32-36); Mean Corpuscular Volume 82.6 fL (80-100); Nucleated RBC # (auto) 0.03 K/uL (0-0); Nucleated RBC % (auto) 0.2 %; Platelet Count 290 K/uL (130-400); RDW Coefficient of Variation 13.5 % (11.5-14.5); RDW Standard Deviation 40.5 fL (36.4-46.3); Red Blood Count 4.84 M/uL (4.7-6.1); White Blood Count 17.91 K/uL (4.8-10.8)
[2020-09-14 07:24] LABS: Albumin Level 3.2 gm/dl (3.4-5.0); BUN Creatinine Ratio 39.8 (10-20); Calcium 8.5 mg/dl (8.5-10.1); Creatinine Clr Calc Pharmacy 99.1 ml/min; Est GFR (African American) 102.7; Est GFR (Non-African American) 88.6; Magnesium 2.5 mg/dl (1.8-2.4); Potassium 3.8 mmol/L (3.5-5.1)
[2020-09-14 07:26] LABS: Albumin Globulin Ratio 0.9 (0.9-2); Bilirubin,Total 0.6 mg/dl (0.2-1); Globulin 3.4 gm/dl (2.5-4.0); Total Protein 6.6 gm/dl (6.4-8.2)
[2020-09-14] MEDS: ALBUTEROL HFA 8 GM INHALER INH SCH ×2 (07:28→19:48)
[2020-09-14] MEDS: IPRATROPIUM BROMIDE HFA INHALER INH SCH ×2 (07:29→19:48)
[2020-09-14] MEDS: LOSARTAN POTASSIUM 50 MG TAB PO SCH (08:36)
[2020-09-14] MEDS: FAMOTIDINE 40 MG TABLET PO SCH (08:36)
[2020-09-14] MEDS: CLOPIDOGREL BISULFATE 75 MG TAB PO SCH (08:36)
[2020-09-14] MEDS: GABAPENTIN 300 MG CAP PO SCH ×2 (08:36→21:24)
[2020-09-14] MEDS: TOLTERODINE TARTRATE LA 4 MG CAPCR PO SCH (08:37)
[2020-09-14] MEDS: ENOXAPARIN INJ 40 MG/0.4 ML SYR SQ SCH (08:37)
[2020-09-14] MEDS: FLUTICASONE/VILANTEROL 100/25MCG 14 PUFFS/INHALER INH SCH (08:37)
--- NOTE | 2020-09-14 14:57 | Hospitalist Progress Note ---
Date of Service September 14, 2020 Assessment & Plan (1) Multiple sclerosis: Now with increased ataxia and some weakness neurology consultation feels this may be an MS flare. - Finished Solu-Medrol 1,000 mg IV daily x 3 days (Last dose: 09/13/2020) - Continue gabapentin. - Consider switching tolterodine to Ocrevus as outpatient. - Per neurology, transitioned to Medrol dosepak steroid taper starting on 09/14. - Rehab per PT/OT -> Working toward [facility] or possibly [facility]. (2) UTI (urinary tract infection): 2nd e.coli, shepard sensitive. - Was on Rocephin. Changed to keflex 500mg BID on 09/04/2020. Finished abx on 09/09/2020. - No present symptoms. (3) Fall: Suspect 2nd to UTI and recent COVID-19 vaccination in setting of advanced MS. Neurology did feel this was an active MS flare. - PT/OT -> Plan for rehab (4) Hypertension: BP today is 155/80. - Continue losartan 50mg po daily. - Hydralazine PRN (5) COPD (chronic obstructive pulmonary disease): Chronic. Stable. - Continue inhalers Breo (maintenance) - DuoNebs standing BID & PRN (6) Depression with anxiety: Chronic. Stable. - Continue venlafaxine, Seroquel qHS, and temazepam qHS (7) Gastro-esophageal reflux: Chronic. Stable. - Continue H2 marcus (8) Hemiparesis affecting right side as late effect of cerebrovascular accident: MRI brain on 09/02/2020 with old CVAs but no new CVA ("Multiple old periventricular, bilateral basal ganglia, bilateral thalami lacunar infarcts" on MRI). - Continue atorvastatin. - Continue Plavix (9) DVT prophylaxis: Lovenox 40 mg SQ daily Admission and Anticipated Discharge Date Admission Date: September 03, 2020 Subjective Stable today. No new symptoms. Reports no fevers/chills, chest pain, shortness of breath, abdominal pain, nausea, or vomiting. Physical Exam Constitutional: WD/WN, vitals as above Eyes: EOM intact bilaterally; no conjunctival abnormality ENMT: external ear and nose normal, oropharynx normal Neck: trachea midline, no thyromegaly normal visual inspection Respiratory: normal respiratory effort, lungs clear to auscultation no respiratory distress Cardiovascular: RRR, no murmur, no edema Gastrointestinal (Abdomen): Inspection/Auscultation: abdomen normal to inspection; abdomen not distended Musculoskeletal: no cyanosis or clubbing, extremities motor strength 5/5 Skin: no rashes, warm and dry Neurologic: moves all extremities and awake Psychiatric: Orientation: alert, oriented to person and cooperative Results & Data Results & Data ([facility]) Vital Signs (Past 12 Hours) Vital Signs Temp Pulse Resp BP Pulse Ox 09/14/20 07:45 36.4 C L 70 20 153/81 H 96 09/14/20 07:29 86 16 95 PG Care Time/CCT Total # of Minutes Spent Total Time Spent with Patient: Total time spent is greater than 50% in coordination of care (as documented) at patient's floor/unit and/or counseling patient: Coding Level of Care Code 43518 Subseq Hosp Care Lvl 2 Diagnoses Multiple sclerosis G35 UTI (urinary tract infection) N39.0 Fall W19.XXXA Encounter type: initial encounter Hypertension I10 Hypertension type: essential hypertension COPD (chronic obstructive pulmonary disease) J44.9 COPD type: unspecified COPD Depression with anxiety F41.8 Gastro-esophageal reflux K21.9 Esophagitis presence: esophagitis presence not specified Hemiparesis affecting right side as late effect of cerebrovascular accident I69.351 DVT prophylaxis Z29.9 (1) COPD (chronic obstructive pulmonary disease) COPD type: unspecified COPD Qualified Code(s): J44.9 - Chronic obstructive pulmonary disease, unspecified (2) Gastro-esophageal reflux Esophagitis presence: esophagitis presence not specified Qualified Code(s): K21.9 - Gastro-esophageal reflux disease without esophagitis (3) Hypertension Hypertension type: essential hypertension Qualified Code(s): I10 - Essential (primary) hypertension (4) Fall Encounter type: initial encounter Qualified Code(s): W19.XXXA - Unspecified fall, initial encounter
[2020-09-14] MEDS ORDERED: hydrALAZINE HCL 20 MG/ML VIAL IV PRN (15:10)
[2020-09-14] MEDS: ATORVASTATIN 40 MG TAB PO SCH (21:23)
[2020-09-14] MEDS: QUEtiapine FUMARATE 200 MG TAB PO SCH (21:24)
[2020-09-14] MEDS: VENLAFAXINE HCL XR 150 MG CAPXR PO SCH (21:25)
[2020-09-15] MEDS: methylPREDNISolone 4 MG TAB PO SCH ×2 (06:12→12:39)
[2020-09-15] MEDS: ALBUTEROL HFA 8 GM INHALER INH SCH (07:10)
[2020-09-15] MEDS: IPRATROPIUM BROMIDE HFA INHALER INH SCH (07:10)
[2020-09-15 07:18] LABS: Hematocrit (blood only) 39.3 % (42-52); Hemoglobin 13.8 g/dL (14.0-18.0); Mean Corpuscular Hemoglobin 29.6 pg (25-34); Mean Corpuscular Hgb Conc 35.1 g/dL (32-36); Mean Corpuscular Volume 84.3 fL (80-100); Mean Platelet Volume 10.2 fL (7.4-10.4); Nucleated RBC # (auto) 0.02 K/uL (0-0); Nucleated RBC % (auto) 0.2 %; Platelet Count 242 K/uL (130-400); RDW Coefficient of Variation 13.7 % (11.5-14.5); RDW Standard Deviation 41.6 fL (36.4-46.3); Red Blood Count 4.66 M/uL (4.7-6.1); White Blood Count 13.01 K/uL (4.8-10.8)
[2020-09-15 07:49] LABS: BUN Creatinine Ratio 34.5 (10-20); Calcium 8.5 mg/dl (8.5-10.1); Creatinine Clr Calc Pharmacy 92.2 ml/min; Est GFR (African American) 99.7; Magnesium 2.5 mg/dl (1.8-2.4); Potassium 4.4 mmol/L (3.5-5.1)
[2020-09-15] MEDS: CLOPIDOGREL BISULFATE 75 MG TAB PO SCH (08:42)
[2020-09-15] MEDS: FLUTICASONE/VILANTEROL 100/25MCG 14 PUFFS/INHALER INH SCH (08:42)
[2020-09-15] MEDS: LOSARTAN POTASSIUM 50 MG TAB PO SCH (08:42)
[2020-09-15] MEDS: FAMOTIDINE 40 MG TABLET PO SCH (08:43)
[2020-09-15] MEDS: GABAPENTIN 300 MG CAP PO SCH (08:43)
[2020-09-15] MEDS: ENOXAPARIN INJ 40 MG/0.4 ML SYR SQ SCH (08:43)
[2020-09-15] MEDS: TOLTERODINE TARTRATE LA 4 MG CAPCR PO SCH (08:43)
--- NOTE | 2020-09-15 17:53 | Discharge Summary ---
Date of Service September 15, 2020 Admission HPI Per Admitting Provider Hammad Ornelas is a 74yo C male with history of MS on Natalizumab infusion q monthly presenting from home after a fall. Patient's daughter is at bedside and provides majority of the history. She reports that patient has had a fairly steady functional decline over the last 2-3 weeks. He has had increased fatigue as well as gait instability. He has had several falls. He has also had urinary incontinence and was recently started on tolterodine. Patient lives in a trailer with his grandson. He has been needing to use his wheelchair more often lately. Patient was seen in Neurology clinic today with the above complaints. Lab studies were recommended to rule out metabolic cause for functional decline. Patient returned home after his visit and around 19:00 he had a fall in his home. He reports he simply lost his balance and fell on his face. He does not think he lost consciousness. No report of chest pain, palpitations, incontinence, nausea or dizziness. Patient with prior CVA with left sided deficit - he denies new or worsening numbness, tingling or weakness. He has a mild headache with photophobia. Patient received his second Covid shot on 08/20. His son recently secondary to aggressive Head and Neck cancer Principal Diagnosis MS exacerbation Discharge Exam Constitutional WD/WN, vitals as above Eyes EOM intact bilaterally; no conjunctival abnormality ENMT external ear and nose normal, oropharynx normal Neck trachea midline, no thyromegaly normal visual inspection Respiratory normal respiratory effort, lungs clear to auscultation no respiratory distress Cardiovascular RRR, no murmur, no edema Gastrointestinal (Abdomen) Inspection/Auscultation: abdomen normal to inspection; abdomen not distended Musculoskeletal no cyanosis or clubbing, extremities motor strength 5/5 Skin no rashes, warm and dry Neurologic moves all extremities and awake Psychiatric Orientation: alert, oriented to person and cooperative Discharge Data Allergies Allergy/AdvReac Type Severity Reaction Status Date / Time latex Allergy Unknown unknown Verified 09/01/20 23:12 adhesive AdvReac Intermediate RASH UNDER Verified 09/01/20 23:12 TAPES Consultations 09/01/20 23:43 ED Decision to Admit Stat 09/02/20 01:44 Consult Neurology Routine Ordered Studies 09/01/20 20:48 CT head/brain wo con Urgent 09/01/20 20:49 CT cervical spine wo con Urgent 09/02/20 01:44 MR brain MS wo/w con Routine 09/02/20 10:36 MR cervical spine wo/w con Routine MR thoracic spine wo/w con Routine Hospital Course (1) Multiple sclerosis: Now with increased ataxia and some weakness neurology consultation feels this may be an MS flare. - Finished Solu-Medrol 1,000 mg IV daily x 3 days (Last dose: 09/13/2020) - Continue gabapentin. - Consider switching tolterodine to Ocrevus as outpatient. - Per neurology, transitioned to Medrol dosepak steroid taper starting on 09/14. Instructions included in discharge packet. (2) UTI (urinary tract infection): 2nd e.coli, shepard sensitive. - Was on Rocephin. Changed to keflex 500mg BID on 09/04/2020. Finished abx on 09/09/2020. - No present symptoms. (3) Fall: Suspect 2nd to UTI and recent COVID-19 vaccination in setting of advanced MS. Neurology did feel this was an active MS flare. - PT/OT -> Plan for rehab (4) Hypertension: BP today is 155/80. - Continue losartan 50mg po daily. - Hydralazine PRN (5) COPD (chronic obstructive pulmonary disease): Chronic. Stable. - Continue inhalers Breo (maintenance) - DuoNebs standing BID & PRN (6) Depression with anxiety: Chronic. Stable. - Continue venlafaxine, Seroquel qHS, and temazepam qHS (7) Gastro-esophageal reflux: Chronic. Stable. - Continue H2 marcus (8) Hemiparesis affecting right side as late effect of cerebrovascular accident: MRI brain on 09/02/2020 with old CVAs but no new CVA ("Multiple old periventricular, bilateral basal ganglia, bilateral thalami lacunar infarcts" on MRI). - Continue atorvastatin. - Continue Plavix (9) DVT prophylaxis: Lovenox 40 mg SQ daily Total Time Total Time Spent Total Time Spent (In Minutes): 35 Discharge Plan Discharge Items Patient Disposition: Transfer [facility] Reason For Visit: FALL, GAIT INSTABILITY, H/O MS Discharge Diagnosis: Fall gait instability Facial abrasion Activity: Per Instructions section Activity Comment: PT /OT evaluation Non-emergency contact: Primary Care Provider Call non-emergency contact if: you have any medication questions and your symptoms worsen Follow-up/Referrals: Brandon Jackson MD [Family Provider] - (Please follow up with Dr. Jackson in 1-2 weeks post-discharge.) Jude De La Rosa MD [Primary Care Provider] - Diet: Regular Addtl Attending Provider Instructions: pt admitted after a Fall: Suspect 2nd to UTI and recent COVID-19 vaccination in setting of advanced MS. Neurology did feel this was an active ms flare deconditioning and some component for possible depression from 's some metabolic encephalopathy from uti poa PT, OT. Both advising rehab. UTI (urinary tract infection):2nd e.coli, shepard sens. Rocephin. changed to Keflex 500mg BID. Finished before discharge. Multiple sclerosis: Patient on Natalizumab monthly. Tolterodine & Gabapentin. - Plan to switch to new agent as outpatient. - Finish Medrol dosepak per neurology. This was started on 09/14/2020 in the morning, so he will continue the usual taper of: Day 2 (09/15): 4 mg PO before breakfast, after lunch, and after dinner and 8 mg at bedtime Day 3 (09/16): 4 mg PO before breakfast, after lunch, after dinner, and at bedtime Day 4 (09/17): 4 mg PO before breakfast, after lunch, and at bedtime Day 5 (09/18): 4 mg PO before breakfast and at bedtime Day 6 (09/19): 4 mg PO before breakfast Recent MRI brain with old CVAs but no new CVA ("Multiple old periventricular, bilateral basal ganglia, bilateral thalami lacunar infarcts" on MRI. Pending Studies at Discharge: No Stand-Alone Forms: [facility] [employer] Skilled Items Patient informed of condition?: Yes DNR: No Discharge Level of Care: Skilled Communicable Disease: No Discharge Prognosis: Stable Lines: None Urinary Catheter: No Medications and DC Order Prescriptions: New cephalexin 500 mg Capsule 500 mg PO BID Qty: 16 RF: 0 Continued fluticasone propion-salmeterol 500-50 mcg/dose blister with device See Rx Instructions .ROUTE .COMPLEX Qty: 180 RF: 3 Combivent Respimat 20-100 mcg/actuation mist 1 puff inhalation QID Qty: 4 RF: 5 polyethylene glycol 3350 [Miralax] 17 gram/dose powder 17 gm PO DAILY PRN (Reason: constipation) Qty: 119 RF: 2 quetiapine 200 mg tablet 200 mg PO HS 30 Days Qty: 30 RF: 5 atorvastatin 40 mg tablet 40 mg PO QPM Qty: 90 RF: 3 temazepam 15 mg capsule 15 mg PO HS PRN (Reason: sleep) Qty: 90 RF: 1 venlafaxine 150 mg capsule,extended release 24hr 150 mg PO HS 90 Days Qty: 90 RF: 1 gabapentin 300 mg capsule 300 mg PO BID Qty: 180 RF: 1 clopidogrel 75 mg tablet 75 mg PO DAILY Qty: 30 RF: 5 tolterodine 4 mg capsule,extended release 24hr 4 mg PO DAILY 30 Days Qty: 30 RF: 3 cholecalciferol (vitamin D3) 125 mcg (5,000 unit) capsule 5,000 unit PO DAILY RF: 0 losartan 50 mg tablet 50 mg PO DAILY Qty: 90 RF: 3 cholecalciferol (vitamin D3) 25 mcg (1,000 unit) capsule 25 mcg PO DAILY RF: 0 lansoprazole [Prevacid] 30 mg capsule,delayed release(DR/EC) 30 mg PO DAILY Qty: 30 RF: 11 multivitamin Tablet 1 tab PO QAM RF: 0 albuterol sulfate 2.5 mg /3 mL (0.083 %) Solution For Nebulization 2.5 mg INHALATION .Q4-6H PRN (Reason: Shortness Of Breath) RF: 0 cyanocobalamin (vitamin B-12) [Vitamin B-12] 1,000 mcg Tablet 1,000 mcg PO QAM RF: 0 docusate sodium [Stool Softener] 100 mg Capsule 100 mg PO UD PRN (Reason: constipation) RF: 0 Tysabri 300 mg/15 mL solution 300 mg IV MONTHLY 28 Days Qty: 15 RF: 10 Discontinued albuterol sulfate [Ventolin HFA] 90 mcg/actuation HFA aerosol inhaler 2 puff inhalation Q4H PRN (Reason: shortness of breath or wheezing) Qty: 1 RF: 11 sennosides-docusate sodium [Senokot-S] 8.6-50 mg Tablet 0 tab PO QPM PRN (Reason: Constipation) RF: 0 Discharge Orders: Discharge Order (Routine); Ordered 09/15/20 Ordered By: Renny Russ Admission Data Admit Date/Time: 09/03/20 18:06 Attending Provider: Renny Russ Admit Provider: Thea Barrera Primary Care Provider: Jude De La Rosa Other Providers: Miguel Marsh ; Jillian, ; Augusta Mujica at [place] ; Renny Russ ; [place] Other Interventions: Discharge Summary Assessment (RN) Last Done: 09/15/20 12:23 Coding Level of Care Code D/C Day Management >30 mins Diagnoses Multiple sclerosis G35 UTI (urinary tract infection) N39.0 Fall W19.XXXA Encounter type: initial encounter Hypertension I10 Hypertension type: essential hypertension COPD (chronic obstructive pulmonary disease) J44.9 COPD type: unspecified COPD Depression with anxiety F41.8 Gastro-esophageal reflux K21.9 Esophagitis presence: esophagitis presence not specified Hemiparesis affecting right side as late effect of cerebrovascular accident I69.351 DVT prophylaxis Z29.9
[2020-09-15] MEDS ORDERED: methylPREDNISolone 4 MG TAB PO SCH (21:00)
[2020-09-16] MEDS ORDERED: methylPREDNISolone 4 MG TAB PO SCH (07:00)
[2020-09-17] MEDS ORDERED: methylPREDNISolone 4 MG TAB PO SCH (07:00)
[2020-09-18] MEDS ORDERED: methylPREDNISolone 4 MG TAB PO SCH (07:00)
[2020-09-19] MEDS ORDERED: methylPREDNISolone 4 MG TAB PO SCH (07:00)
== END 2020-09-15 14:33 | DRG 58 ==
LOC: ED 20:00 → 3N 20:00 → SUATTDRO 09-02 00:37 → 3N 09-02 01:15 → SUATTDRO 09-03 18:06

== ENCOUNTER 2021-03-09 10:31 | Inpatient (IN) ==
[2021-03-09] MEDS ORDERED: OPTIRAY 320 125ml IV ONE (10:49)
--- NOTE | 2021-03-09 10:56 | Emergency Department Note ---
Impression & Plan Slurring of speech, Facial droop ED Provider Note Provider: Cyril Erwin MD DATE OF SERVICE: 03/09/2021 CHIEF COMPLAINT: Right-sided weakness, speech changes HISTORY OF PRESENT ILLNESS: Patient is a 75-year-old gentleman history of CVA, TIA, COPD, MS, and hypertension presenting here today via ambulance from home with concerns for stroke. Patient relays around 830am he was sitting at the table doing some bills and felt like he became weak on his right side. Patient states he had some weakness in the side over the past week or so and has had some chronic issues with weakness on the right side as well this was a bit different. Alerted his grandson this morning whom he lives with who called 911. Patient was reported per the initial EMS evaluation with significantly slurred speech and some right facial droop that has improved some since their initial contact. No trauma or falls reported. The patient has any headache, acute visual changes, or nausea. Patient states he is not had symptoms like this before. Daughter is present states that her son who the patient lives with was alerted by the patient about this just this morning and thus prompted medical evaluation. There was some question if he was having some difficulty chewing last night. Last known well is a little bit unclear given this. Patient does have reported history of aneurysm and is on Plavix. Daughter reports that she did have a little bit of difficulty getting in touch with me yesterday so unsure if he may have had started some symptoms yesterday. REVIEW OF SYSTEMS: A total of 10 review of systems was obtained and negative except as stated above in the HPI. PAST MEDICAL HISTORY: As noted above MEDICATIONS: Reviewed home medications SOCIAL HISTORY: Lives at home with grandson PHYSICAL EXAM: GENERAL: alert and oriented in no acute distress on stretcher Head: normocephalic and atraumatic EYES: No injection, discharge or icterus. PERRL NECK: Trachea midline. Supple. ENT: Mucous membranes pink and moist. Pharynx without erythema or exudate. LUNGS: Airway patent. No retractions. Breath sounds clear with good air entry bilaterally. HEART: Regular rate and rhythm. No chest wall tenderness ABDOMEN: Soft and non-tender, without guarding or rebound. SKIN: Acyanotic, warm, dry EXTREMITIES: Without swelling, tenderness or deformity NEUROLOGICAL: No aphasia. Mildly slurred speech with some slight right facial droop. Moving all extremities with grossly intact strength and motor weakness in the arms and legs. Tongue is midline. EK bpm normal sinus rhythm. No PVC or PAC. No acute ST segment elevation or depression. QTC 466. CONTINUOUS CARDIAC MONITORING: was ordered and showed a heart rate of 60s to 70s bpm in normal sinus rhythm Patient's laboratory studies and imaging reviewed. Differential includes Infection, dehydration, metabolic abnormality, hypo/hyperglycemia, electrolyte disturbance, anemia, hypoxia, cardiac sources, intracerebral event, toxicologic, neurologic, as well as other pathologies. IMPRESSION/MEDICAL DECISION MAKING: Given the unclear exactly last known well as well as a history of aneurysm patient is not a candidate for TPA. Made a stroke alert upon arrival over to further reduce this as well as to expedite imaging. No evidence of acute intracranial bleed. Stenoses and aneurysms appear present but no significant lesion to explain symptoms today on this. Blood work obtained here with mildly elevated glucose but no other significant electrolyte abnormalities noted. No evidence of Lyme disease or Covid. EKG without severe arrhythmia. No significant leukocytosis is noted. Doubt this represents meningitis. Patient is not having significant hemiplegia at this time though with some mild right facial droop and slurred speech. Question if he is having exacerbation of his underlying MS symptomatologies versus TIA/stroke symptoms. We will discussed with the hospitalist and plan to proceed with MRI to evaluate further his complaints. DIAGNOSIS: Slurred speech, facial droop DISPOSITION: Hospitalist will evaluate Patient was agreeable with this plan. Past Med/Surg History Medical History (Updated 03/09/21 @ 13:04 by Cyril Erwin M.D.) Acute foreign body of left ear canal Altered mental status COPD (chronic obstructive pulmonary disease) Depression with anxiety Eyebrow laceration Facial abrasion Fall Lumbar radiculopathy Multiple sclerosis Syncope Tinnitus, bilateral Surgical History History of colonoscopy History of open heart surgery S/P cataract surgery S/P tonsillectomy Family History Father , age 78 of cancer (uncertain type) Hypertension Hearing loss Colorectal cancer Mother , age 81 of cancer (uncertain type) Diabetes Hypertension Hearing loss Stroke Breast cancer Sister Hypertension Hearing loss Breast cancer Grandmother (Paternal) Hypertension Brother Hearing loss Social History Smoking Status: Former smoker packs per day: 2; Years Smoked: 30; Number of Years Since Quit: 30; Second Hand Exposure: No; Hx Alcohol Use: Yes Alcohol type: beer Alcohol Intake Frequency: Monthly or Less Hx Substance Use: No Preferred Language: Malawian Communication Ability: Effective Visual Impairment: Limited Hearing Ability: Use of Hearing Aid Training Administrator Required: No Beliefs That Will Affect Care: None marital status: / Current Living Situation: Family Current Living Situation Comment: lives with grandson current occupational status: retired and disabled current occupation: Retired maintenance department @ [employer] How many Children do You have: 3 Feels Safe at Home: Yes Seatbelt Use: never Sunscreen Use: No Assistive Devices: Walker Allergies Allergies Allergy/AdvReac Type Severity Reaction Status Date / Time latex Allergy Unknown unknown Verified 03/09/21 12:12 adhesive AdvReac Intermediate RASH UNDER Verified 03/09/21 12:12 TAPES Home Meds Home Medications Medication Instructions Recorded Confirmed albuterol sulfate 2.5 mg INHALATION Q4H PRN 09/05/18 03/09/21 cyanocobalamin (vitamin B-12) 1,000 mcg PO QAM 09/05/18 03/09/21 1,000 mcg tablet (Vitamin B-12) docusate sodium 100 mg capsule 100 mg PO UD PRN 01/08/19 03/09/21 (Stool Softener) cholecalciferol (vitamin D3) 125 5,000 unit PO DAILY 09/01/20 03/09/21 mcg (5,000 unit) capsule fluticasone 500 mcg-salmeterol 50 1 inh INHALATION BID 03/09/21 03/09/21 mcg/dose blistr powdr for inhalation Previous Rx's Medication Instructions Recorded polyethylene glycol 3350 17 17 gm PO DAILY PRN #119 gm 10/14/19 gram/dose oral powder (Miralax) lansoprazole 30 mg capsule,delayed 30 mg PO DAILY #30 cap 03/03/20 release (Prevacid) losartan 50 mg tablet 50 mg PO DAILY #90 tab 04/05/20 atorvastatin 40 mg tablet 40 mg PO QPM #90 tab 05/10/20 clopidogrel 75 mg tablet 75 mg PO DAILY #30 tab 08/26/20 gabapentin 300 mg capsule 300 mg PO BID #180 cap 10/07/20 temazepam 15 mg capsule 15 mg PO HS PRN #90 cap 12/10/20 ocrelizumab 30 mg/mL intravenous 600 mg IV Q6MO #20 ml 12/29/20 solution (Ocrevus) quetiapine 200 mg tablet 200 mg PO HS 90 Days #90 tab 01/03/21 venlafaxine 150 mg 150 mg PO HS 90 Days #90 cap 01/03/21 capsule,extended release 24 hr ipratropium 20 mcg-albuterol 100 1 puff INHALATION QID #4 gm 01/04/21 mcg/actuation mist for inhalation (Combivent Respimat) tolterodine 4 mg capsule,extended 4 mg PO DAILY 30 Days #30 cap 03/02/21 release 24 hr Results & Data (ED) Vital Signs Vital Signs - 24 hr 03/09/21 10:32 03/09/21 10:43 03/09/21 10:48 Temperature 36.9 C 36.9 C Temperature Source Oral Oral Pulse Rate 68 Pulse Rate [Apical] 68 Pulse Rate from SpO2 Sensor Pulse Rhythm [Apical] Regular Respiratory Rate 18 21 Respiratory Effort / Characteristics Non-Labored Spontaneous Respiratory Depth Normal Blood Pressure Blood Pressure [Right Arm] 138/78 Blood Pressure Mean Blood Pressure Mean [Right Arm] 98 Blood Pressure Position [Right Arm] Lying Pulse Oximetry 95 95 Oxygen Delivery Method Room Air Sepsis Recent Fever Within 48 Hours No Sepsis New/Unexplained Change in Mental Status N/A Sepsis Action Taken by Nursing No Action Required 03/09/21 10:50 03/09/21 11:00 03/09/21 11:10 Temperature Temperature Source Pulse Rate 68 63 63 Pulse Rate [Apical] Pulse Rate from SpO2 Sensor 68 63 63 Pulse Rhythm [Apical] Respiratory Rate 16 17 18 Respiratory Effort / Characteristics Respiratory Depth Blood Pressure 140/78 130/75 Blood Pressure [Right Arm] Blood Pressure Mean 98 93 Blood Pressure Mean [Right Arm] Blood Pressure Position [Right Arm] Pulse Oximetry 95 97 97 Oxygen Delivery Method Room Air Room Air Sepsis Recent Fever Within 48 Hours Sepsis New/Unexplained Change in Mental Status Sepsis Action Taken by Nursing 03/09/21 12:39 Temperature Temperature Source Pulse Rate Pulse Rate [Apical] 63 Pulse Rate from SpO2 Sensor Pulse Rhythm [Apical] Respiratory Rate 15 Respiratory Effort / Characteristics Respiratory Depth Normal Blood Pressure Blood Pressure [Right Arm] Blood Pressure Mean Blood Pressure Mean [Right Arm] Blood Pressure Position [Right Arm] Pulse Oximetry 97 Oxygen Delivery Method Sepsis Recent Fever Within 48 Hours Sepsis New/Unexplained Change in Mental Status Sepsis Action Taken by Nursing Laboratory Data Result diagrams: 03/09/21 10:51 03/09/21 10:51 Lab Results 03/09/21 03/09/21 03/09/21 Range/Units 10:46 10:51 10:51 WBC 5.78 (4.8-10.8) K/uL RBC 4.24 L (4.7-6.1) M/uL Hgb 12.8 L (14.0-18.0) g/dL Hct 37.2 L (42-52) % MCV 87.7 (80-100) fL MCH 30.2 (25-34) pg MCHC 34.4 (32-36) g/dL RDW Std Deviation 44.7 (36.4-46.3) fL RDW Coeff of Lilia 13.9 (11.5-14.5) % Plt Count 144 (130-400) K/uL MPV 10.1 (7.4-10.4) fL Immature Gran % (Auto) 0.0 % Neut % (Auto) 65.6 % Lymph % (Auto) 22.8 % [place] % (Auto) 9.3 % Eos % (Auto) 2.1 % Baso % (Auto) 0.2 % Neut # (Auto) 3.79 (1.4-6.5) K/uL Lymph # (Auto) 1.32 (1.2-3.4) K/uL [place] # (Auto) 0.54 (0.11-0.59) K/uL Eos # (Auto) 0.12 (0-0.5) K/uL Baso # (Auto) 0.01 (0-0.2) K/uL Immature Gran # (Auto) 0.00 (0.00-0.02) K/uL PT (9.0-12.0) Seconds INR (0.9-1.1) APTT (21.0-31.0) Seconds PTT Ratio Sodium (136-145) mmol/L Potassium (3.5-5.1) mmol/L Chloride (98-107) mmol/L Carbon Dioxide (21-32) mmol/L Anion Gap (3-11) BUN (7-18) mg/dl Creatinine (0.6-1.4) mg/dl Est Cr Clr Drug Dosing ml/min Est GFR ( Amer) ml/min Est GFR (Non-Af Amer) ml/min BUN/Creatinine Ratio (10-20) Glucose (70-99) mg/dl POC Glucose 173 H (70-99) mg/dl Calcium (8.5-10.1) mg/dl Magnesium (1.8-2.4) mg/dl Total Bilirubin (0.2-1) mg/dl AST (15-37) U/L ALT (12-78) U/L Alkaline Phosphatase (45-117) U/L Troponin I (0-0.045) ng/ml Total Protein (6.4-8.2) gm/dl Albumin (3.4-5.0) gm/dl Globulin (2.5-4.0) gm/dl Albumin/Globulin Ratio (0.9-2) Lyme Disease IgG Ab (Negative) Lyme Disease IgM Ab (Negative) COVID-19 Eval Order SARS-CoV-2 (PCR) (Negative) Blood Type A Negative Antibody Screen NEGATIVE 03/09/21 03/09/21 03/09/21 Range/Units 10:51 10:51 10:59 WBC (4.8-10.8) K/uL RBC (4.7-6.1) M/uL Hgb (14.0-18.0) g/dL Hct (42-52) % MCV (80-100) fL MCH (25-34) pg MCHC (32-36) g/dL RDW Std Deviation (36.4-46.3) fL RDW Coeff of Lilia (11.5-14.5) % Plt Count (130-400) K/uL MPV (7.4-10.4) fL Immature Gran % (Auto) % Neut % (Auto) % Lymph % (Auto) % [place] % (Auto) % Eos % (Auto) % Baso % (Auto) % Neut # (Auto) (1.4-6.5) K/uL Lymph # (Auto) (1.2-3.4) K/uL [place] # (Auto) (0.11-0.59) K/uL Eos # (Auto) (0-0.5) K/uL Baso # (Auto) (0-0.2) K/uL Immature Gran # (Auto) (0.00-0.02) K/uL PT 11.0 (9.0-12.0) Seconds INR 1.1 (0.9-1.1) APTT 28.6 (21.0-31.0) Seconds PTT Ratio 1.1 Sodium 139 (136-145) mmol/L Potassium 3.5 (3.5-5.1) mmol/L Chloride 107 (98-107) mmol/L Carbon Dioxide 29 (21-32) mmol/L Anion Gap 4.0 (3-11) BUN 18 (7-18) mg/dl Creatinine 0.93 (0.6-1.4) mg/dl Est Cr Clr Drug Dosing 85.9 ml/min Est GFR ( Amer) 93.4 ml/min Est GFR (Non-Af Amer) 80.6 ml/min BUN/Creatinine Ratio 19.4 (10-20) Glucose 164 H (70-99) mg/dl POC Glucose (70-99) mg/dl Calcium 8.1 L (8.5-10.1) mg/dl Magnesium 2.3 (1.8-2.4) mg/dl Total Bilirubin 0.9 (0.2-1) mg/dl AST 14 L (15-37) U/L ALT 45 (12-78) U/L Alkaline Phosphatase 83 (45-117) U/L Troponin I < 0.015 (0-0.045) ng/ml Total Protein 5.4 L (6.4-8.2) gm/dl Albumin 2.6 L (3.4-5.0) gm/dl Globulin 2.8 (2.5-4.0) gm/dl Albumin/Globulin Ratio 0.9 (0.9-2) Lyme Disease IgG Ab Negative (Negative) Lyme Disease IgM Ab Negative (Negative) COVID-19 Eval Order SARS-CoV-2 (PCR) (Negative) Blood Type Antibody Screen 03/09/21 03/09/21 Range/Units 11:15 11:15 WBC (4.8-10.8) K/uL RBC (4.7-6.1) M/uL Hgb (14.0-18.0) g/dL Hct (42-52) % MCV (80-100) fL MCH (25-34) pg MCHC (32-36) g/dL RDW Std Deviation (36.4-46.3) fL RDW Coeff of Lilia (11.5-14.5) % Plt Count (130-400) K/uL MPV (7.4-10.4) fL Immature Gran % (Auto) % Neut % (Auto) % Lymph % (Auto) % [place] % (Auto) % Eos % (Auto) % Baso % (Auto) % Neut # (Auto) (1.4-6.5) K/uL Lymph # (Auto) (1.2-3.4) K/uL [place] # (Auto) (0.11-0.59) K/uL Eos # (Auto) (0-0.5) K/uL Baso # (Auto) (0-0.2) K/uL Immature Gran # (Auto) (0.00-0.02) K/uL PT (9.0-12.0) Seconds INR (0.9-1.1) APTT (21.0-31.0) Seconds PTT Ratio Sodium (136-145) mmol/L Potassium (3.5-5.1) mmol/L Chloride (98-107) mmol/L Carbon Dioxide (21-32) mmol/L Anion Gap (3-11) BUN (7-18) mg/dl Creatinine (0.6-1.4) mg/dl Est Cr Clr Drug Dosing ml/min Est GFR ( Amer) ml/min Est GFR (Non-Af Amer) ml/min BUN/Creatinine Ratio (10-20) Glucose (70-99) mg/dl POC Glucose (70-99) mg/dl Calcium (8.5-10.1) mg/dl Magnesium (1.8-2.4) mg/dl Total Bilirubin (0.2-1) mg/dl AST (15-37) U/L ALT (12-78) U/L Alkaline Phosphatase (45-117) U/L Troponin I (0-0.045) ng/ml Total Protein (6.4-8.2) gm/dl Albumin (3.4-5.0) gm/dl Globulin (2.5-4.0) gm/dl Albumin/Globulin Ratio (0.9-2) Lyme Disease IgG Ab (Negative) Lyme Disease IgM Ab (Negative) COVID-19 Eval Order Covid19 at [facility] SARS-CoV-2 (PCR) NEGATIVE (Negative) Blood Type Antibody Screen Administered Medications Discontinued Medications Ioversol (Optiray 320 125ml) 115 ml IV ONCE ONE Stop: 03/09/21 10:50 Last Admin: 03/09/21 10:49 Dose: 115 ml Documented by: [id number] Imaging Data Radiologist's Impression: Chest X-Ray 03/09/21 10:24 XR chest 1V portable INDICATION: [place] ^Stroke Like Symptoms . TECHNIQUE: Single frontal radiograph of the chest was obtained. Comparison: None available at the time of this dictation. FINDINGS: Stable right portacatheter. The cardiomediastinal silhouette is normal. The lungs are clear. No evidence of pleural effusion or pneumothorax. IMPRESSION: No acute chest disease. ACT 112: Negative or not required by law. Electronically signed by: Ayo De Los Santos M.D. 03/09/2021 11:[address] 03/09/21 10:24 CT head/brain wo con, CT angio neck with con, CT angio head w con CLINICAL HISTORY: 75 years-old Male with Stroke Like Symptoms. Acute strokelike symptoms TECHNIQUE: Multiple axial CT images of the head were obtained without contrast. CTA had and neck was also obtained following the intravenous administration of 115 mL Optiray 320. 3-D coronal and sagittal MIPS were obtained from the axial data set and were submitted for review. A dose lowering technique was utilized adhering to the principles of ALARA. CT DOSE: 1281.32 mGy.cm COMPARISON: Brain MRI 09/02/2020, head CT 09/01/2020. FINDINGS: CT HEAD: No acute intracranial hemorrhage, midline shift, intracranial mass, hydrocephalus, territorial ischemia or abnormal extra-axial collection. Age- related involutional changes. Patchy white matter hypodensities suggestive of chronic microvascular ischemic disease. Chronic lacunar infarcts of the basal ganglia and payton radiata. Cerebral vascular calcifications. The calvarium is intact. Prior bilateral lens repair. The paranasal sinuses, mastoid air cells, and middle ear cavities are clear. CTA HEAD AND NECK: Atherosclerotic plaque of the thoracic aortic arch. Patency of the innominate and imaged subclavian arteries. The common carotid arteries are widely patent. Mild atherosclerotic plaque the carotid bulbs. There are several small saccular outpouchings involving the proximal cervical segment of the right ICA measuring up to 3 mm on image 222 series 4. Moderate atherosclerotic plaque of the cavernous and supraclinoid segments of the internal carotid arteries with mild multifocal luminal narrowing. Mild multifocal luminal narrowing of the middle cerebral arteries. 3 mm saccular aneurysm arises from the right anterolateral as pect of the anterior communicating artery on image 122 series 5. Anterior cerebral arteries are patent and otherwise unremarkable. Patent and codominant vertebral arteries. The basilar and posterior cerebral arteries are patent. The cerebral venous sinuses are patent. There is no abnormal intracranial enhancement. Lung apices are clear. No pneumothorax. Unremarkable soft tissues. Degenerative changes of the spine. IMPRESSION: 1. No acute intracranial abnormality. 2. Atherosclerotic vascular disease without high-grade stenosis or arterial occlusion identified. 3. 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 4. Mild atheromatous plaque of the carotid bulbs without significant stenosis. There are several areas of tiny saccular outpouching involving the proximal cervical segment of the right ICA measuring up to 3 mm which may represent ulcerative plaques versus less likely saccular aneurysms. ACT 112: Negative or not required by law. The above report was generated using voice recognition software. It may contain grammatical, syntax or spelling errors. Electronically signed by: Magno Haney M.D. 03/09/2021 11:11 AM Head CTA 03/09/21 10:24 CT head/brain wo con, CT angio neck with con, CT angio head w con CLINICAL HISTORY: 75 years-old Male with Stroke Like Symptoms. Acute strokelike symptoms TECHNIQUE: Multiple axial CT images of the head were obtained without contrast. CTA had and neck was also obtained following the intravenous administration of 115 mL Optiray 320. 3-D coronal and sagittal MIPS were obtained from the axial data set and were submitted for review. A dose lowering technique was utilized adhering to the principles of ALARA. CT DOSE: 1281.32 mGy.cm COMPARISON: Brain MRI 09/02/2020, head CT 09/01/2020. FINDINGS: CT HEAD: No acute intracranial hemorrhage, midline shift, intracranial mass, hydrocephalus, territorial ischemia or abnormal extra-axial collection. Age- related involutional changes. Patchy white matter hypodensities suggestive of chronic microvascular ischemic disease. Chronic lacunar infarcts of the basal ganglia and payton radiata. Cerebral vascular calcifications. The calvarium is intact. Prior bilateral lens repair. The paranasal sinuses, ma stoid air cells, and middle ear cavities are clear. CTA HEAD AND NECK: Atherosclerotic plaque of the thoracic aortic arch. Patency of the innominate and imaged subclavian arteries. The common carotid arteries are widely patent. Mild atherosclerotic plaque the carotid bulbs. There are several small saccular outpouchings involving the proximal cervical segment of the right ICA measuring up to 3 mm on image 222 series 4. Moderate atherosclerotic plaque of the c avernous and supraclinoid segments of the internal carotid arteries with mild multifocal luminal narrowing. Mild multifocal luminal narrowing of the middle cerebral arteries. 3 mm saccular aneurysm arises from the right anterolateral aspect of the anterior communicating artery on image 122 series 5. Anterior cerebral arteries are patent and otherwise unremarkable. Patent and codominant vertebral arteries. The basilar and posterior cerebral arteries are patent. The cerebral venous sinuses are patent. There is no abnormal intracranial enhancement. Lung apices are clear. No pneumothorax. Unremarkable soft tissues. Degenerative changes of the spine. IMPRESSION: 1. No acute intracranial abnormality. 2. Atherosclerotic vascular disease without high-grade stenosis or arterial occlusion identified. 3. 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 4. Mild atheromatous plaque of the carotid bulbs without significant stenosis. There are several areas of tiny saccular outpouching involving the proximal cervical segment of the right ICA measuring up to 3 mm which may represent ulcerative plaques versus less likely saccular aneurysms. ACT 112: Negative or not required by law. The above report was generated using voice recognition software. It may contain grammatical, syntax or spelling errors. Electronically signed by: Magno Haney M.D. 03/09/2021 11:11 AM Neck CTA 03/09/21 10:24 CT head/brain wo con, CT angio neck with con, CT angio head w con CLINICAL HISTORY: 75 years-old Male with Stroke Like Symptoms. Acute strokelike symptoms TECHNIQUE: Multiple axial CT images of the head were obtained without contrast. CTA had and neck was also obtained following the intravenous administration of 115 mL Optiray 320. 3-D coronal and sagittal MIPS were obtained from the axial data set and were submitted for review. A dose lowering technique was utilized adhering to the principles of ALARA. CT DOSE: 1281.32 mGy.cm COMPARISON: Brain MRI 09/02/2020, head CT 09/01/2020. FINDINGS: CT HEAD: No acute intracranial hemorrhage, midline shift, intracranial mass, hydrocephalus, territorial ischemia or abnormal extra-axial collection. Age- related involutional changes. Patchy white matter hypodensities suggestive of chronic microvascular ischemic disease. Chronic lacunar infarcts of the basal ganglia and payton radiata. Cerebral vascular calcifications. The calvarium is intact. Prior bilateral lens repair. The paranasal sinuses, mastoid air cells, and middle ear cavities are clear. CTA HEAD AND NECK: Atherosclerotic plaque of the thoracic aortic arch. Patency of the innominate and imaged subclavian arteries. The common carotid arteries are widely patent. Mild atherosclerotic plaque the carotid bulbs. There are several small saccular outpouchings involving the proximal cervical segment of the right ICA measuring up to 3 mm on image 222 series 4. Moderate atherosclerotic plaque of the cavernous and supraclinoid segments of the internal carotid arteries with mild multifocal luminal narrowing. Mild multifocal luminal narrowing of the middle cerebral arteries. 3 mm saccular aneurysm arises from the right anterolateral aspect of the anterior communicating artery on image 122 series 5. Anterior cerebral arteries are patent and otherwise unremarkable. Patent and codominant vertebral arteries. The basilar and posterior cerebral arteries are patent. The cerebral venous sinuses are patent. There is no abnormal intracranial enhancement. Lung apices are clear. No pneumothorax. Unremarkable soft tissues. Degenerative changes of the spine. IMPRESSION: 1. No acute intracranial abnormality. 2. Atherosclerotic vascular disease without high-grade stenosis or arterial occlusion identified. 3. 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 4. Mild atheromatous plaque of the carotid bulbs without significant stenosis. There are several areas of tiny saccular outpouching involving the proximal cervical segment of the right ICA measuring up to 3 mm which may represent ulcerative plaques versus less likely saccular aneurysms. ACT 112: Negative or not required by law. The above report was generated using voice recognition software. It may contain grammatical, syntax or spelling errors. Electronically signed by: Magno Haney M.D. 03/09/2021 11:11 AM Discharge Plan Visit Data Chief Complaint: Stroke Alert Stated Complaint: STROKE ALERT ED Provider: Cyril Erwin Discharge Problem: Slurring of speech, Facial droop Patient Disposition: Admitted As Inpatient Forms Stand Alone Forms: My [facility] Prescriptions Prescriptions: No Action polyethylene glycol 3350 [Miralax] 17 gram/dose powder 17 gm PO DAILY PRN (Reason: constipation) Qty: 119 RF: 2 atorvastatin 40 mg tablet 40 mg PO QPM Qty: 90 RF: 3 clopidogrel 75 mg tablet 75 mg PO DAILY Qty: 30 RF: 5 temazepam 15 mg capsule 15 mg PO HS PRN (Reason: sleep) Qty: 90 RF: 1 Ocrevus 30 mg/mL solution 600 mg IV Q6MO Qty: 20 RF: 1 venlafaxine 150 mg capsule,extended release 24hr 150 mg PO HS 90 Days Qty: 90 RF: 1 quetiapine 200 mg tablet 200 mg PO HS 90 Days Qty: 90 RF: 1 Combivent Respimat 20-100 mcg/actuation mist 1 puff inhalation QID Qty: 4 RF: 5 tolterodine 4 mg capsule,extended release 24hr 4 mg PO DAILY 30 Days Qty: 30 RF: 3 cholecalciferol (vitamin D3) 125 mcg (5,000 unit) capsule 5,000 unit PO DAILY RF: 0 gabapentin 300 mg capsule 300 mg PO BID Qty: 180 RF: 1 losartan 50 mg tablet 50 mg PO DAILY Qty: 90 RF: 3 lansoprazole [Prevacid] 30 mg capsule,delayed release(DR/EC) 30 mg PO DAILY Qty: 30 RF: 11 albuterol sulfate 2.5 mg /3 mL (0.083 %) Solution For Nebulization 2.5 mg INHALATION Q4H PRN (Reason: Shortness Of Breath) RF: 0 cyanocobalamin (vitamin B-12) [Vitamin B-12] 1,000 mcg Tablet 1,000 mcg PO QAM RF: 0 docusate sodium [Stool Softener] 100 mg Capsule 100 mg PO UD PRN (Reason: constipation) RF: 0 fluticasone propion-salmeterol 500-50 mcg/dose blister with device 1 inh inhalation BID RF: 0 Referrals Referrals: Jude De La Rosa MD [Primary Care Provider] -
--- NOTE | 2021-03-09 11:07 | XRay Report ---
XR chest 1V portable INDICATION: [place] ^Stroke Like Symptoms . TECHNIQUE: Single frontal radiograph of the chest was obtained. Comparison: None available at the time of this dictation. FINDINGS: Stable right portacatheter. The cardiomediastinal silhouette is normal. The lungs are clear. No evide nce of pleural effusion or pneumothorax. IMPRESSION: No acute chest disease. ACT 112: Negative or not required by law. Electronically signed by: Ayo De Los Santos M.D. 03/09/2021 11:05 AM
[2021-03-09 11:08] LABS: Basophils # (auto) 0.01 K/uL (0-0.2); Basophils % (auto) 0.2 %; Eosinophils # (auto) 0.12 K/uL (0-0.5); Eosinophils % (auto) 2.1 %; Hematocrit (blood only) 37.2 % (42-52); Hemoglobin 12.8 g/dL (14.0-18.0); Lymphocytes # (auto) 1.32 K/uL (1.2-3.4); Lymphocytes % (auto) 22.8 %; Mean Corpuscular Hemoglobin 30.2 pg (25-34); Mean Corpuscular Hgb Conc 34.4 g/dL (32-36); Mean Corpuscular Volume 87.7 fL (80-100); Mean Platelet Volume 10.1 fL (7.4-10.4); Monocytes # (auto) 0.54 K/uL (0.11-0.59); Monocytes % (auto) 9.3 %; Neutrophils # (auto) 3.79 K/uL (1.4-6.5); Neutrophils % (auto) 65.6 %; Platelet Count 144 K/uL (130-400); RDW Coefficient of Variation 13.9 % (11.5-14.5); RDW Standard Deviation 44.7 fL (36.4-46.3); Red Blood Count 4.24 M/uL (4.7-6.1); White Blood Count 5.78 K/uL (4.8-10.8)
--- NOTE | 2021-03-09 11:12 | CT Scan Report ---
CT head/brain wo con, CT angio neck with con, CT angio head w con CLINICAL HISTORY: 75 years-old Male with Stroke Like Symptoms. Acute strokelike symptoms TECHNIQUE: Multiple axial CT images of the head were obtained without contrast. CTA had and neck was also obtained following the intravenous administration of 115 mL Optiray 320. 3-D coronal and sagitta l MIPS were obtained from the axial data set and were submitted for review. A dose lowering technique was utilized adhering to the principles of ALARA. CT DOSE: 1281.32 mGy.cm COMPARISON: Brain MRI 09/02/2020, head CT 09/01/2020. FINDINGS: CT HEAD: No acute intracranial hemorrhage, midline shift, intracranial mass, hydrocephalus, territorial ischem ia or abnormal extra-axial collection. Age-related involutional changes. Patchy white matter hypodens ities suggestive of chronic microvascular ischemic disease. Chronic lacunar infarcts of the basal scottie glia and payton radiata. Cerebral vascular calcifications. The calvarium is intact. Prior bilateral lens repair. The paranasal sinuses, mastoid air cells, and m iddle ear cavities are clear. CTA HEAD AND NECK: Atherosclerotic plaque of the thoracic aortic arch. Patency of the innominate and imaged subclavian a rteries. The common carotid arteries are widely patent. Mild atherosclerotic plaque the carotid bulbs . There are several small saccular outpouchings involving the proximal cervical segment of the right ICA measuring up to 3 mm on image 222 series 4. Moderate atherosclerotic plaque of the cavernous and supraclinoid segments of the internal carotid arteries with mild multifocal luminal narrowing. Mild m ultifocal luminal narrowing of the middle cerebral arteries. 3 mm saccular aneurysm arises from the r ight anterolateral aspect of the anterior communicating artery on image 122 series 5. Anterior cerebr al arteries are patent and otherwise unremarkable. Patent and codominant vertebral arteries. The basilar and posterior cerebral arteries are patent. The cerebral venous sinuses are patent. There is no abnormal intracranial enhancement. Lung apices are clear. No pneumothorax. Unremarkable soft tissues. Degenerative changes of the spine. IMPRESSION: 1. No acute intracranial abnormality. 2. Atherosclerotic vascular disease without high-grade stenosis or arterial occlusion identified. 3. 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 4. Mild atheromatous plaque of the carotid bulbs without significant stenosis. There are several area s of tiny saccular outpouching involving the proximal cervical segment of the right ICA measuring up to 3 mm which may represent ulcerative plaques versus less likely saccular aneurysms. ACT 112: Negative or not required by law. The above report was generated using voice recognition software. It may contain grammatical, syntax o r spelling errors. Electronically signed by: Magno Haney M.D. 03/09/2021 11:11 AM
[2021-03-09 11:20] LABS: INR 1.1 (0.9-1.1); Partial Thromboplastin Ratio 1.1; Partial Thromboplastin Time 28.6 Seconds (21.0-31.0)
[2021-03-09 11:24] LABS: Alanine Aminotransferase 45 U/L (12-78); Albumin Level 2.6 gm/dl (3.4-5.0); BUN Creatinine Ratio 19.4 (10-20); Blood Urea Nitrogen 18 mg/dl (7-18); Calcium 8.1 mg/dl (8.5-10.1); Carbon Dioxide 29 mmol/L (21-32); Chloride 107 mmol/L (98-107); Creatinine Clr Calc Pharmacy 85.9 ml/min; Est GFR (African American) 93.4 ml/min; Est GFR (Non-African American) 80.6 ml/min; Glucose 164 mg/dl (70-99); Magnesium 2.3 mg/dl (1.8-2.4); Potassium 3.5 mmol/L (3.5-5.1); Sodium 139 mmol/L (136-145)
--- NOTE | 2021-03-09 11:58 | History & Physical Report ---
Date of Service March 09, 2021 Assessment & Plan (1) Slurring of speech: Plan: Slurring of speech/dysphagia/ambulatory dysfunction/residual right hemiparesis/transient neurologic symptoms- Symptoms are more suggestive of a possible TIA as opposed to MS flare. Admit to monitored bed with stroke without TPA protocol order set Consult PT/OT/speech/neurology Continue clopidogrel, and add aspirin N.p.o. except medications, until cleared by speech (2) Dysphagia: Plan: See above (3) Ambulatory dysfunction: Plan: See above (4) Cerebral aneurysm, nonruptured: Plan: Patient with known previous aneurysm, unchanged on current imaging (5) Hemiparesis affecting right side as late effect of cerebrovascular accident: Plan: See above On examination, strength on the right side was very close to the left side (6) Transient neurological symptoms: Plan: See above (7) Hypertension: (8) COPD (chronic obstructive pulmonary disease): Plan: Hold Advair. Have DuoNebs available as needed (9) Multiple sclerosis: (10) Depression with anxiety: Plan: Resume venlafaxine, temazepam, quetiapine, gabapentin if cleared by speech (11) Gastro-esophageal reflux: Plan: Placed on famotidine 20 mg IV every 12 hours (12) Hyperglycemia: Plan: History of hyperglycemia without diagnosis of diabetes Glucose 164 upon admission Check hemoglobin A1c If blood sugar elevated in a.m., will add Accu-Cheks and coverage at that time History of Present Illness Chief Complaint: The patient presents to the emergency department due to family noticing this morning slurred speech, dysarthria, and ambulatory dysfunction, which his reports appear to be a slight worsening of his chronic right weakness Primary Care Provider: Jude De La Rosa MD The patient is a 75-year-old male with a past medical history including multiple sclerosis, closed head injury, nonruptured cerebral aneurysm, left carotid stenosis, hemiparesis affecting right side as late effect CVA, left-sided weakness, lumbar DDD, gait disturbance, hypertension, chronic low back pain, lumbar radiculopathy, COPD, depression with anxiety, bilateral sensorineural hearing loss, GERD and hyperglycemia. Patient's daughter reports that she had tried to contact the patient yesterday during the day, but did not succeed, and he did not hear the phone ringing. His son notes this morning symptoms of difficulty speech, difficulty swallowing, and worsening of his right-sided weakness. It was also noted the patient was starting to have difficulty with choking while eating last evening. Allergies Allergy/AdvReac Type Severity Reaction Status Date / Time latex Allergy Unknown unknown Verified 03/09/21 12:12 adhesive AdvReac Intermediate RASH UNDER Verified 03/09/21 12:12 TAPES Home Medications Medication Instructions Recorded Confirmed Type albuterol sulfate 2.5 mg INHALATION Q4H PRN 09/05/18 03/09/21 History cyanocobalamin (vitamin B-12) 1,000 mcg PO QAM 09/05/18 03/09/21 History 1,000 mcg tablet (Vitamin B-12) docusate sodium 100 mg capsule 100 mg PO UD PRN 01/08/19 03/09/21 History (Stool Softener) polyethylene glycol 3350 17 17 gm PO DAILY PRN #119 gm 10/14/19 03/09/21 Rx gram/dose oral powder (Miralax) lansoprazole 30 mg capsule,delayed 30 mg PO DAILY #30 cap 03/03/20 03/09/21 Rx release (Prevacid) losartan 50 mg tablet 50 mg PO DAILY #90 tab 04/05/20 03/09/21 Rx atorvastatin 40 mg tablet 40 mg PO QPM #90 tab 05/10/20 03/09/21 Rx clopidogrel 75 mg tablet 75 mg PO DAILY #30 tab 08/26/20 03/09/21 Rx cholecalciferol (vitamin D3) 125 5,000 unit PO DAILY 09/01/20 03/09/21 History mcg (5,000 unit) capsule gabapentin 300 mg capsule 300 mg PO BID #180 cap 10/07/20 03/09/21 Rx temazepam 15 mg capsule 15 mg PO HS PRN #90 cap 12/10/20 03/09/21 Rx ocrelizumab 30 mg/mL intravenous 600 mg IV Q6MO #20 ml 12/29/20 03/09/21 Rx solution (Ocrevus) quetiapine 200 mg tablet 200 mg PO HS 90 Days #90 tab 01/03/21 03/09/21 Rx venlafaxine 150 mg 150 mg PO HS 90 Days #90 cap 01/03/21 03/09/21 Rx capsule,extended release 24 hr ipratropium 20 mcg-albuterol 100 1 puff INHALATION QID #4 gm 01/04/21 03/09/21 Rx mcg/actuation mist for inhalation (Combivent Respimat) tolterodine 4 mg capsule,extended 4 mg PO DAILY 30 Days #30 cap 03/02/21 03/09/21 Rx release 24 hr fluticasone 500 mcg-salmeterol 50 1 inh INHALATION BID 03/09/21 03/09/21 History mcg/dose blistr powdr for inhalation Past Med/Surg History Medical History (Updated 03/09/21 @ 13:33 by Jacky Farias MD) Acute foreign body of left ear canal Altered mental status COPD (chronic obstructive pulmonary disease) Depression with anxiety Eyebrow laceration Facial abrasion Fall Lumbar radiculopathy Multiple sclerosis Syncope Tinnitus, bilateral Surgical History History of colonoscopy History of open heart surgery S/P cataract surgery S/P tonsillectomy Family History Father , age 78 of cancer (uncertain type) Hypertension Hearing loss Colorectal cancer Mother , age 81 of cancer (uncertain type) Diabetes Hypertension Hearing loss Stroke Breast cancer Sister Hypertension Hearing loss Breast cancer Grandmother (Paternal) Hypertension Brother Hearing loss Social History Smoking Status: Former smoker packs per day: 2; Years Smoked: 30; Number of Years Since Quit: 30; Second Hand Exposure: No; Hx Alcohol Use: Yes Alcohol type: beer Alcohol Intake Frequency: Monthly or Less Hx Substance Use: No Preferred Language: Italian Communication Ability: Effective Visual Impairment: Limited Hearing Ability: Use of Hearing Aid Swine Nutritionist Required: No Beliefs That Will Affect Care: None marital status: / Current Living Situation: Family Current Living Situation Comment: lives with grandson current occupational status: retired and disabled current occupation: Retired maintenance department @ [employer] How many Children do You have: 3 Feels Safe at Home: Yes Seatbelt Use: never Sunscreen Use: No Assistive Devices: Walker Review of Systems Review of Systems: The patient denies chest pain, palpitations, shortness of breath, dyspnea on exertion, lower extremity swelling, sore throat, fevers, chills, sweats, nausea, vomiting, diarrhea , constipation, abdominal pain, pelvic pain, blood in urine or stool, dysuria, urinary frequency or urgency, loss of consciousness, rash, abnormal bruising or bleeding, generalized arthralgias or myalgias, back or neck pain, or night sweats. The review of systems is otherwise negative other than for that already noted above, and at least 10 systems have been reviewed. Physical Exam Physical Exam: The patient is awake, somewhat lethargic, well developed and well nourished, normocephalic and atraumatic, lying in bed and in no acute distress. HEENT--PERRL, EOMI, mucous membranes and oropharynx mildly dry. Neck--supple. No JVD. No bruits. Thyroid normal, trachea midline, no adenopathy. Heart--normal S1 and S2. No murmurs, rubs or gallops. Lungs--clear bilaterally, no respiratory distress, no accessory muscle use. Abdomen--normal bowel sounds and soft. Nontender. Nondistended, no hernias or masses, no organomegaly. Extremities--no cyanosis or clubbing. No edema. Dermatologic--normal skin turgor, normal color, no abnormal lymph nodes, no rash. Neurologic--cranial nerves II through XII grossly intact. Equal strength bilat erally upper and lower extremities Rheumatologic--normal range of motion but slow Psychiatric--normal affect. Results & Data Results & Data ([facility]) Vital Signs (Past 12 Hours) Vital Signs Temp Pulse Pulse Resp BP BP Pulse Ox 03/09/21 11:10 63 18 130/75 97 03/09/21 11:00 63 17 140/78 97 03/09/21 10:50 68 16 95 03/09/21 10:48 68 21 95 03/09/21 10:43 98.4 F 68 18 138/78 95 03/09/21 10:32 98.4 F Laboratory Results Laboratory Results WBC 5.78 K/uL (4.8-10.8) 03/09/21 10:51 RBC 4.24 M/uL (4.7-6.1) L 03/09/21 10:51 Hgb 12.8 g/dL (14.0-18.0) L 03/09/21 10:51 Hct 37.2 % (42-52) L 03/09/21 10:51 MCV 87.7 fL (80-100) 03/09/21 10:51 MCH 30.2 pg (25-34) 03/09/21 10:51 MCHC 34.4 g/dL (32-36) 03/09/21 10:51 RDW Std Deviation 44.7 fL (36.4-46.3) 03/09/21 10:51 RDW Coeff of Lilia 13.9 % (11.5-14.5) 03/09/21 10:51 Plt Count 144 K/uL (130-400) 03/09/21 10:51 MPV 10.1 fL (7.4-10.4) 03/09/21 10:51 Immature Gran % (Auto) 0.0 % 03/09/21 10:51 Neut % (Auto) 65.6 % 03/09/21 10:51 Lymph % (Auto) 22.8 % 03/09/21 10:51 [place] % (Auto) 9.3 % 03/09/21 10:51 Eos % (Auto) 2.1 % 03/09/21 10:51 Baso % (Auto) 0.2 % 03/09/21 10:51 Neut # (Auto) 3.79 K/uL (1.4-6.5) 03/09/21 10:51 Lymph # (Auto) 1.32 K/uL (1.2-3.4) 03/09/21 10:51 [place] # (Auto) 0.54 K/uL (0.11-0.59) 03/09/21 10:51 Eos # (Auto) 0.12 K/uL (0-0.5) 03/09/21 10:51 Baso # (Auto) 0.01 K/uL (0-0.2) 03/09/21 10:51 Immature Gran # (Auto) 0.00 K/uL (0.00-0.02) 03/09/21 10:51 PT 11.0 Seconds (9.0-12.0) 03/09/21 10:51 INR 1.1 (0.9-1.1) 03/09/21 10:51 APTT 28.6 Seconds (21.0-31.0) 03/09/21 10:51 PTT Ratio 1.1 03/09/21 10:51 Sodium 139 mmol/L (136-145) 03/09/21 10:51 Potassium 3.5 mmol/L (3.5-5.1) 03/09/21 10:51 Chloride 107 mmol/L (98-107) 03/09/21 10:51 Carbon Dioxide 29 mmol/L (21-32) 03/09/21 10:51 Anion Gap 4.0 (3-11) 03/09/21 10:51 BUN 18 mg/dl (7-18) 03/09/21 10:51 Creatinine 0.93 mg/dl (0.6-1.4) 03/09/21 10:51 Est Cr Clr Drug Dosing 85.9 ml/min 03/09/21 10:51 Est GFR ( Amer) 93.4 ml/min 03/09/21 10:51 Est GFR (Non-Af Amer) 80.6 ml/min 03/09/21 10:51 BUN/Creatinine Ratio 19.4 (10-20) 03/09/21 10:51 Glucose 164 mg/dl (70-99) H 03/09/21 10:51 POC Glucose 173 mg/dl (70-99) H 03/09/21 10:46 Estimat Average Glucose 123 mg/dl 03/09/21 10:51 Hemoglobin A1c 5.9 % (4.5-5.6) H 03/09/21 10:51 Calcium 8.1 mg/dl (8.5-10.1) L 03/09/21 10:51 Magnesium 2.3 mg/dl (1.8-2.4) 03/09/21 10:51 Total Bilirubin 0.9 mg/dl (0.2-1) 03/09/21 10:51 AST 14 U/L (15-37) L 03/09/21 10:51 ALT 45 U/L (12-78) 03/09/21 10:51 Alkaline Phosphatase 83 U/L (45-117) 03/09/21 10:51 Troponin I < 0.015 ng/ml (0-0.045) 03/09/21 10:51 Total Protein 5.4 gm/dl (6.4-8.2) L 03/09/21 10:51 Albumin 2.6 gm/dl (3.4-5.0) L 03/09/21 10:51 Globulin 2.8 gm/dl (2.5-4.0) 03/09/21 10:51 Albumin/Globulin Ratio 0.9 (0.9-2) 03/09/21 10:51 Triglycerides 84 mg/dl (0-150) 03/09/21 10:51 Cholesterol 95 mg/dl (0-200) 03/09/21 10:51 LDL Cholesterol, Calc 35 mg/dl 03/09/21 10:51 VLDL Cholesterol, Calc 17 mg/dl 03/09/21 10:51 HDL Cholesterol 43 mg/dl 03/09/21 10:51 Cholesterol/HDL Ratio 2 03/09/21 10:51 Lyme Disease IgG Ab Negative (Negative) 03/09/21 10:59 Lyme Disease IgM Ab Negative (Negative) 03/09/21 10:59 COVID-19 Eval Order Covid19 at [facility] 03/09/21 11:15 SARS-CoV-2 (PCR) NEGATIVE (Negative) 03/09/21 11:15 Blood Type A Negative 03/09/21 10:51 Antibody Screen NEGATIVE 03/09/21 10:51 Impressions Chest X-Ray 03/09/21 10:24 XR chest 1V portable INDICATION: [place] ^Stroke Like Symptoms . TECHNIQUE: Single frontal radiograph of the chest was obtained. Comparison: None available at the time of this dictation. FINDINGS: Stable right portacatheter. The cardiomediastinal silhouette is normal. The lungs are clear. No evidence of pleural effusion or pneumothorax. IMPRESSION: No acute chest disease. ACT 112: Negative or not required by law. Electronically signed by: Ayo De Los Santos M.D. 03/09/2021 11:[address] 03/09/21 10:24 CT head/brain wo con, CT angio neck with con, CT angio head w con CLINICAL HISTORY: 75 years-old Male with Stroke Like Symptoms. Acute strokelike symptoms TECHNIQUE: Multiple axial CT images of the head were obtained without contrast. CTA had and neck was also obtained following the intravenous administration of 115 mL Optiray 320. 3-D coronal and sagittal MIPS were obtained from the axial data set and were submitted for review. A dose lowering technique was utilized adhering to the principles of ALARA. CT DOSE: 1281.32 mGy.cm COMPARISON: Brain MRI 09/02/2020, head CT 09/01/2020. FINDINGS: CT HEAD: No acute intracranial hemorrhage, midline shift, intracranial mass, hydrocephalus, territorial ischemia or abnormal extra-axial collection. Age- related involutional changes. Patchy white matter hypodensities suggestive of chronic microvascular ischemic disease. Chronic lacunar infarcts of the basal ganglia and payton radiata. Cerebral vascular calcifications. The calvarium is intact. Prior bilateral lens repair. The paranasal sinuses, mastoid air cells, and middle ear cavities are clear. CTA HEAD AND NECK: Atherosclerotic plaque of the thoracic aortic arch. Patency of the innominate and imaged subclavian arteries. The common carotid arteries are widely patent. Mild atherosclerotic plaque the carotid bulbs. There are several small saccular outpouchings involving the proximal cervical segment of the right ICA measuring up to 3 mm on image 222 series 4. Moderate atherosclerotic plaque of the cavernous and supraclinoid segments of the internal carotid arteries with mild multifocal luminal narrowing. Mild multifocal luminal narrowing of the middle cerebral arteries. 3 mm saccular aneurysm arises from the right anterolateral aspect of the anterior communicating artery on image 122 series 5. Anterior cerebral arteries are patent and otherwise unremarkable. Patent and codominant vertebral arteries. The basilar and posterior cerebral arteries are patent. The cerebral venous sinuses are patent. There is no abnormal intracranial enhancement. Lung apices are clear. No pneumothorax. Unremarkable soft tissues. Degenerative changes of the spine. IMPRESSION: 1. No acute intracranial abnormality. 2. Atherosclerotic vascular disease without high-grade stenosis or arterial occlusion identified. 3. 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 4. Mild atheromatous plaque of the carotid bulbs without significant stenosis. There are several areas of tiny saccular outpouching involving the proximal cervical segment of the right ICA measuring up to 3 mm which may represent ulcerative plaques versus less likely saccular aneurysms. ACT 112: Negative or not required by law. The above report was generated using voice recognition software. It may contain grammatical, syntax or spelling errors. Electronically signed by: Magno Haney M.D. 03/09/2021 11:11 AM Head CTA 03/09/21 10:24 CT head/brain wo con, CT angio neck with con, CT angio head w con CLINICAL HISTORY: 75 years-old Male with Stroke Like Symptoms. Acute strokelike symptoms TECHNIQUE: Multiple axial CT images of the head were obtained without contrast. CTA had and neck was also obtained following the intravenous administration of 115 mL Optiray 320. 3-D coronal and sagittal MIPS were obtained from the axial data set and were submitted for review. A dose lowering technique was utilized adhering to the principles of ALARA. CT DOSE: 1281.32 mGy.cm COMPARISON: Brain MRI 09/02/2020, head CT 09/01/2020. FINDINGS: CT HEAD: No acute intracranial hemorrhage, midline shift, intracranial mass, hydrocephalus, territorial ischemia or abnormal extra-axial collection. Age- related involutional changes. Patchy white matter hypodensities suggestive of chronic microvascular ischemic disease. Chronic lacunar infarcts of the basal ganglia and payton radiata. Cerebral vascular calcifications. The calvarium is intact. Prior bilateral lens repair. The paranasal sinuses, mastoid air cells, and middle ear cavities are clear. CTA HEAD AND NECK: Atherosclerotic plaque of the thoracic aortic arch. Patency of the innominate and imaged subclavian arteries. The common carotid arteries are widely patent. Mild atherosclerotic plaque the carotid bulbs. There are several small saccular outpouchings involving the proximal cervical segment of the right ICA measuring up to 3 mm on image 222 series 4. Moderate atherosclerotic plaque of the cavernous and supraclinoid segments of the internal carotid arteries with mild multifocal luminal narrowing. Mild multifocal luminal narrowing of the middle cerebral arteries. 3 mm saccular aneurysm arises from the right anterolateral aspect of the anterior communicating artery on image 122 series 5. Anterior cerebral arteries are patent and otherwise unremarkable. Patent and codominant vertebral arteries. The basilar and posterior cerebral arteries are patent. The cerebral venous sinuses are patent. There is no abnormal intracranial enhancement. Lung apices are clear. No pneumothorax. Unremarkable soft tissues. Degenerative changes of the spine. IMPRESSION: 1. No acute intracranial abnormality. 2. Atherosclerotic vascular disease without high-grade stenosis or arterial occlusion identified. 3. 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 4. Mild atheromatous plaque of the carotid bulbs without significant stenosis. There are several areas of tiny saccular outpouching involving the proximal cervical segment of the right ICA measuring up to 3 mm which may represent ulcerative plaques versus less likely saccular aneurysms. ACT 112: Negative or not required by law. The above report was generated using voice recognition software. It may contain grammatical, syntax or spelling errors. Electronically signed by: Magno Haney M.D. 03/09/2021 11:11 AM Neck CTA 03/09/21 10:24 CT head/brain wo con, CT angio neck with con, CT angio head w con CLINICAL HISTORY: 75 years-old Male with Stroke Like Symptoms. Acute strokelike symptoms TECHNIQUE: Multiple axial CT images of the head were obtained without contrast. CTA had and neck was also obtained following the intravenous administration of 115 mL Optiray 320. 3-D coronal and sagittal MIPS were obtained from the axial data set and were submitted for review. A dose lowering technique was utilized adhering to the principles of ALARA. CT DOSE: 1281.32 mGy.cm COMPARISON: Brain MRI 09/02/2020, head CT 09/01/2020. FINDINGS: CT HEAD: No acute intracranial hemorrhage, midline shift, intracranial mass, hydrocephalus, territorial ischemia or abnormal extra-axial collection. Age- related involutional changes. Patchy white matter hypodensities suggestive of chronic microvascular ischemic disease. Chronic lacunar infarcts of the basal ganglia and payton radiata. Cerebral vascular calcifications. The calvarium is intact. Prior bilateral lens repair. The paranasal sinuses, mastoid air cells, and middle ear cavities are clear. CTA HEAD AND NECK: Atherosclerotic plaque of the thoracic aortic arch. Patency of the innominate and imaged subclavian arteries. The common carotid arteries are widely patent. Mild atherosclerotic plaque the carotid bulbs. There are several small saccular outpouchings involving the proximal cervical segment of the right ICA measuring up to 3 mm on image 222 series 4. Moderate atherosclerotic plaque of the cavernous and supraclinoid segments of the internal carotid arteries with mild multifocal luminal narrowing. Mild multifocal luminal narrowing of the middle cerebral arteries. 3 mm saccular aneurysm arises from the right anterolateral aspect of the anterior communicating artery on image 122 series 5. Anterior cerebral arteries are patent and otherwise unremarkable. Patent and codominant vertebral arteries. The basilar and posterior cerebral arteries are patent. The cerebral venous sinuses are patent. There is no abnormal intracranial enhancement. Lung apices are clear. No pneumothorax. Unremarkable soft tissues. Degenerative changes of the spine. IMPRESSION: 1. No acute intracranial abnormality. 2. Atherosclerotic vascular disease without high-grade stenosis or arterial occlusion identified. 3. 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 4. Mild atheromatous plaque of the carotid bulbs without significant stenosis. There are several areas of tiny saccular outpouching involving the proximal cervical segment of the right ICA measuring up to 3 mm which may represent ulcerative plaques versus less likely saccular aneurysms. ACT 112: Negative or not required by law. The above report was generated using voice recognition software. It may contain grammatical, syntax or spelling errors. Electronically signed by: Magno Haney M.D. 03/09/2021 11:11 AM Diagnostic Findings [facility], [id number] Magnetic Resonance Report Patient: Sherry PARIS Date: 03/09/21MR#: [id number]: [address] ID:[id number]: [address]: 1945[facility] Zip: [place] [address]Qfu: [id number]: EDSex: MRoom/Bed:Att Phy:Diagnosis: STROKE ALERTPri Phy: Jude De La Rosa, NEGRAervice Date: 03/09/21Fa Phy:Interpreting Phy: Gera Medina MDAdmit Phy: Ordering Phy: Cyril Erwin M.D. cc: ~ MR brain MS wo/w con CLINICAL HISTORY: Multiple sclerosis, right-sided weakness, slurred speech COMPARISON STUDY: MRI of the brain September 02, 2020. Head CT and CTA of the head performed earlier today. TECHNIQUE: Utilizing a 1.5 Aleyda magnet and dedicated coil, multiplanar, multi echo imaging of the brain was performed pre and postcontrast ministration according to the multiple sclerosis protocol. Intravenous injection of 10 cc of Gadavist was uneventful. FINDINGS: There are no foci of acute diffusion to suggest acute infarct. No acute intracranial hemorrhage, midline shift or mass effect is present. Ventricular system is stable. Basal cisterns are patent. No extra-axial collections are present. Moderate atrophy is again noted. Numerous old lacunar infarcts within the bilateral basal ganglia and thalami are noted. The majority of these were present on prior MRI of September 02, 2020. An 8 mm lacunar infarct within the left internal capsule is new since that exam but not acute. There is no intracranial mass or pathologic enhancement. Periventricular white matter T2 hyperintensity is similar to prior MRI. IMPRESSION: 1. No acute intracranial findings. 2. Numerous old lacunar infarcts within the bilateral basal ganglia, thalami and periventricular white matter. 3. No significant change in periventricular white matter T2 hyperintensity. 4. No intracranial mass or pathologic enhancement. ACT 112: Negative or not required by law. Electronically signed by: Gera Medina M.D. 03/09/2021 2:54 PM Dictated: 03/09/21 1445Transcribed: 03/09/21 1445 Code Status & VTE Plan Code Status Full code VTE Prophylaxis Plan VTE Prophylaxis will be ordered: Yes PG Care Time/CCT Total # of Minutes Spent Total Time Spent with Patient: Total time spent is greater than 50% in coordination of care (as documented) at patient's floor/unit and/or counseling p atient: Coding Level of Care Code 60806 Initial Inpt Care Lvl 3 Diagnoses Slurring of speech R47.81 Dysphagia R13.10 Ambulatory dysfunction R26.2 Cerebral aneurysm, nonruptured I67.1 Hemiparesis affecting right side as late effect of cerebrovascular accident I69.351 Transient neurological symptoms R29.818 Hypertension I10 Hypertension type: essential hypertension COPD (chronic obstructive pulmonary disease) J44.9 COPD type: unspecified COPD Multiple sclerosis G35 Depression with anxiety F41.8 Gastro-esophageal reflux K21.9 Esophagitis presence: esophagitis presence not specified Hyperglycemia R73.9 (1) COPD (chronic obstructive pulmonary disease) COPD type: unspecified COPD Qualified Code(s): J44.9 - Chronic obstructive pulmonary disease, unspecified (2) Gastro-esophageal reflux Esophagitis presence: esophagitis presence not specified Qualified Code(s): K21.9 - Gastro-esophageal reflux disease without esophagitis (3) Hypertension Hypertension type: essential hypertension Qualified Code(s): I10 - Essential (primary) hypertension
[2021-03-09 12:00] LABS: Lyme Ab IgG w/WB Rflx Negative (Negative)
[2021-03-09 12:00] LABS: Albumin Globulin Ratio 0.9 (0.9-2); Alkaline Phosphatase 83 U/L (45-117); Bilirubin,Total 0.9 mg/dl (0.2-1); Globulin 2.8 gm/dl (2.5-4.0); Total Protein 5.4 gm/dl (6.4-8.2); Troponin I < 0.015 ng/ml (0-0.045)
[2021-03-09 12:01] LABS: Lyme Ab IgM w/WB Rflx Negative (Negative)
[2021-03-09 12:21] LABS: Aspartate Aminotransferase 14 U/L (15-37)
[2021-03-09 13:12] LABS: Chol HDL Ratio 2; Cholesterol 95 mg/dl (0-200); HDL Cholesterol 43 mg/dl; LDL Cholesterol Calculated 35 mg/dl; Triglycerides 84 mg/dl (0-150); VLDL Cholesterol 17 mg/dl
[2021-03-09 13:30] LABS: Estimated Average Glucose 123 mg/dl; Hemoglobin A1C 5.9 % (4.5-5.6)
[2021-03-09] MEDS ORDERED: GADOBUTROL 65ML VIAL IV ONE (14:25)
--- NOTE | 2021-03-09 14:55 | Magnetic Resonance Report ---
MR brain MS wo/w con CLINICAL HISTORY: Multiple sclerosis, right-sided weakness, slurred speech COMPARISON STUDY: MRI of the brain September 02, 2020. Head CT and CTA of the head performed earlier alo vuong TECHNIQUE: Utilizing a 1.5 Aleyda magnet and dedicated coil, multiplanar, multi echo imaging of the br ain was performed pre and postcontrast ministration according to the multiple sclerosis protocol. Int ravenous injection of 10 cc of Gadavist was uneventful. FINDINGS: There are no foci of acute diffusion to suggest acute infarct. No acute intracranial hemorr marlene, midline shift or mass effect is present. Ventricular system is stable. Basal cisterns are paten t. No extra-axial collections are present. Moderate atrophy is again noted. Numerous old lacunar infa rcts within the bilateral basal ganglia and thalami are noted. The majority of these were present on prior MRI of September 02, 2020. An 8 mm lacunar infarct within the left internal capsule is new since cesar t exam but not acute. There is no intracranial mass or pathologic enhancement. Periventricular white matter T2 hyperintensity is similar to prior MRI. IMPRESSION: 1. No acute intracranial findings. 2. Numerous old lacunar infarcts within the bilateral basal ganglia, thalami and periventricular whit e matter. 3. No significant change in periventricular white matter T2 hyperintensity. 4. No intracranial mass or pathologic enhancement. ACT 112: Negative or not required by law. Electronically signed by: Gera Medina M.D. 03/09/2021 2:54 PM
[2021-03-09] MEDS ORDERED: PHARMACIST DISCHARGE MED REC CONSULT PRN (15:09)
[2021-03-09] MEDS ORDERED: ALBUT/IPRATROP 3MG/0.5MG NEB 3 ML VIAL NEB PRN (15:18)
[2021-03-09] MEDS ORDERED: FAMOTIDINE 20MG IV PUSH 20 MG/5 ML SYR IV ONE (15:30)
--- NOTE | 2021-03-09 17:54 | Electrocardiogram Report ---
Test Reason : Blood Pressure : / mmHG Vent. Rate : 064 BPM Atrial Rate : 064 BPM P-R Int : 174 ms QRS Dur : 104 ms QT Int : 452 ms P-R-T Axes : 066 035 069 degrees QTc Int : 466 ms Normal sinus rhythm Normal ECG When compared with ECG of 01-SEP-2020 21:08, No significant change was found Confirmed by Marino Larsen ([id number]) on 03/09/2021 5:53:59 PM Referred By: REFERRED SELF Confirmed By:Ron Larsen
[2021-03-09] MEDS ORDERED: POLYETHYLENE (MIRALAX) 17 GM PACK PO PRN (23:00)
[2021-03-09] MEDS ORDERED: TEMAZEPAM 15 MG CAPSULE PO PRN (23:00)
[2021-03-09] MEDS ORDERED: ONDANSETRON INJ 2 MG/ML 2 ML VIAL IV PRN (23:00)
[2021-03-09] MEDS ORDERED: DOCUSATE SODIUM 100 MG CAP PO PRN (23:00)
[2021-03-09 23:37] LABS: Hematocrit (blood only) 41.5 % (42-52); Hemoglobin 14.3 g/dL (14.0-18.0)
[2021-03-09] MEDS: ENOXAPARIN INJ 40 MG/0.4 ML SYR SQ SCH (23:55)
[2021-03-09] MEDS: ATORVASTATIN 40 MG TAB PO SCH (23:56)
[2021-03-09] MEDS: NSS + 20MEQ KCL 20 MEQ/1,000 ML BAG IV SCH (23:56)
[2021-03-09] MEDS: GABAPENTIN 300 MG CAP PO SCH (23:56)
[2021-03-09] MEDS: VENLAFAXINE HCL XR 150 MG CAPXR PO SCH (23:56)
[2021-03-10 06:58] LABS: Basophils # (auto) 0.02 K/uL (0-0.2); Basophils % (auto) 0.2 %; Eosinophils # (auto) 0.23 K/uL (0-0.5); Eosinophils % (auto) 2.9 %; Hematocrit (blood only) 41.5 % (42-52); Hemoglobin 14.3 g/dL (14.0-18.0); Immature Granulocytes # (auto) 0.02 K/uL (0.00-0.02); Immature Granulocytes % (auto) 0.2 %; Lymphocytes # (auto) 2.35 K/uL (1.2-3.4); Lymphocytes % (auto) 29.2 %; Mean Corpuscular Hemoglobin 29.7 pg (25-34); Mean Corpuscular Hgb Conc 34.5 g/dL (32-36); Mean Corpuscular Volume 86.1 fL (80-100); Monocytes # (auto) 0.67 K/uL (0.11-0.59); Monocytes % (auto) 8.3 %; Neutrophils # (auto) 4.77 K/uL (1.4-6.5); Neutrophils % (auto) 59.2 %; Platelet Count 161 K/uL (130-400); RDW Coefficient of Variation 13.9 % (11.5-14.5); RDW Standard Deviation 43.7 fL (36.4-46.3); Red Blood Count 4.82 M/uL (4.7-6.1); White Blood Count 8.06 K/uL (4.8-10.8)
[2021-03-10 07:21] LABS: Albumin Globulin Ratio 0.9 (0.9-2); Albumin Level 3.1 gm/dl (3.4-5.0); BUN Creatinine Ratio 17.3 (10-20); Bilirubin,Total 1.1 mg/dl (0.2-1); Creatinine Clr Calc Pharmacy 93.7 ml/min; Est GFR (Non-African American) 86.3 ml/min; Globulin 3.4 gm/dl (2.5-4.0); Potassium 4.2 mmol/L (3.5-5.1); Total Protein 6.5 gm/dl (6.4-8.2)
[2021-03-10] MEDS: TOLTERODINE TARTRATE LA 4 MG CAPCR PO SCH (07:39)
[2021-03-10] MEDS: CHOLECALCIFEROL 1,000 UNITS 25 MCG TAB PO SCH (07:40)
[2021-03-10] MEDS: CYANOCOBALAMIN 500 MCG TABLET (VITAMIN B-12) PO SCH (07:41)
[2021-03-10] MEDS: GABAPENTIN 300 MG CAP PO SCH ×2 (07:42→20:00)
[2021-03-10] MEDS: LOSARTAN POTASSIUM 50 MG TAB PO SCH (07:42)
[2021-03-10] MEDS: PANTOprazole 40 MG TAB PO SCH (07:42)
[2021-03-10] MEDS: FLUTICASONE/VILANTEROL 200/25MCG 14 PUFFS/INHALER INH SCH (07:42)
[2021-03-10] MEDS: ASPIRIN 81 MG ECTAB PO SCH (07:42)
[2021-03-10] MEDS: CLOPIDOGREL BISULFATE 75 MG TAB PO SCH (07:42)
[2021-03-10] MEDS ORDERED: Influenza Vaccine-High Dose (Fluzone-HD) PF 65+ 0.7 ML SYR IM ONE (08:00)
--- NOTE | 2021-03-10 08:51 | Hospitalist Progress Note ---
Date of Service March 10, 2021 Assessment & Plan (1) Slurring of speech: Plan: possible TIA images of brain did not support CVA, Slurring of speech/dysphagia/ambulatory dysfunction/residual right hemiparesis/transient neurologic symptoms- also must consider MS flare, after discussion with neurology and review of images of his cervical spine showing persistent plaques we'll give a dose of Solu-Medrol and monitor his progress stroke without TPA protocol order set utilized on presentation Consult PT/OT/feels patient able to go home cared for by family. Speech is cleared for swallowing normal food however if further evaluation is warranted instrumental assessment will be performed Continue clopidogrel, added aspirin continue atorvastatin (2) Dysphagia: Plan: See above (3) Ambulatory dysfunction: Plan: See above (4) Cerebral aneurysm, nonruptured: Plan: Patient with known previous aneurysm, viewed current imaging no acute events seems unchanged, MRI of brain 03/09, multiple small lacunar infarcts nothing seems acute (5) Hemiparesis affecting right side as late effect of cerebrovascular accident: Plan: mild residual hemiplegia remains from previous stroke since there is no cerebral changes on CT or MRI but cervical spine changes of plaques consistent with MS this likely may be what is originating his subjective feeling of worsening right leg weakness. steroid bolus will be utilized to see if he improves (6) Hypertension: Plan: typically takes losartan, initially with permissive hypertension, will follow after todays losartan to decide if adjustment is needed (7) COPD (chronic obstructive pulmonary disease): Plan: Breo elipta substituted for Advair. Have DuoNebs available as needed (8) Multiple sclerosis: Plan: typically on ocrelizumab with neurology oversight We'll try 1 dose of 1 g Solu-Medrol and evaluate for clinical improvement (9) Depression with anxiety: Plan: venlafaxine, temazepam, quetiapine, gabapentin (10) Gastro-esophageal reflux: Plan: Transition to p.o. famotidine (11) Hyperglycemia: Plan: History of hyperglycemia without diagnosis of diabetes Glucose 164 upon admission normal hemoglobin A1c effectively rules out diabetes Plan: Daughter updated plans to have patient come up with her for a few weeks after discharge trying to get a room ready for him at this time in her home Admission and Anticipated Discharge Date Admission Date: March 09, 2021 Subjective pt states has not had recurrence of his dysphagia or speech problems he still remains weak mostly with his right leg has difficulty getting out of a chair however did well with physical and occupational therapy evaluation. This time he seems to be adamant against going to rehab did not fully disclose his family is planning on him to go home with to live with them he feels he wants to go home go by himself cared for by his grandson Review of Systems Review of Systems: Moderate distress and fatigue no headache, no visual changes no speech or swallowing issues no chest pain, pressure or palpitations no shortness of breath, cough or wheezes no abdominal pain, nausea or vomiting, no dysuria, hematuria or frequency no focal joint pain or swelling no back pain, CVA tenderness or radicular pain no bruising, bleeding or rashes Patient has right leg weakness which is discernible compared to left. Seems to be mostly quadriceps and hamstrings and affects his balance in some ways no complaints of anxiety or depression.. Physical Exam Physical Exam: The patient appeared well nourished and normally developed. Vital signs as documented. Head exam is normocephalic atraumatic Neck is without JVD, thyromegaly, or carotid bruits. Lungs are clear to auscultation, no focal loss of breath sounds Cardiac exam, Rhythm is regular.. Systolic murmur is heard at the base Abdominal exam reveals normal bowel sounds, soft non tender, no masses Extremities are nonedematous and both pedal pulses are present Neurologic exam is alert and oriented, decreased strength to his proximal muscles of his right leg 4-5 compared to left Skin is without bruises or rashes Psychologically is without concerns for anxiety or depression Results & Data Results & Data ([facility]) Vital Signs (Past 12 Hours) Vital Signs Temp Pulse Resp BP Pulse Ox 03/10/21 07:29 98.2 F 70 19 181/111 H 95 03/10/21 04:24 97.7 F 66 16 163/93 H 96 03/09/21 23:23 69 177/84 H 03/09/21 22:35 98.2 F 81 20 195/66 H 94 03/09/21 20:47 63 20 199/101 H 95 PG Care Time/CCT Total # of Minutes Spent Total Time Spent with Patient: Total time spent is greater than 50% in coordina tion of care (as documented) at patient's floor/unit and/or counseling patient: Coding Level of Care Code 20832 Subseq Hosp Care Lvl 3 Diagnoses Slurring of speech R47.81 Dysphagia R13.10 Ambulatory dysfunction R26.2 Cerebral aneurysm, nonruptured I67.1 Hemiparesis affecting right side as late effect of cerebrovascular accident I69.351 Hypertension I10 Hypertension type: essential hypertension COPD (chronic obstructive pulmonary disease) J44.9 COPD type: unspecified COPD Multiple sclerosis G35 Depression with anxiety F41.8 Gastro-esophageal reflux K21.9 Esophagitis presence: esophagitis presence not specified Hyperglycemia R73.9 (1) COPD (chronic obstructive pulmonary disease) COPD type: unspecified COPD Qualified Code(s): J44.9 - Chronic obstructive pulmonary disease, unspecified (2) Gastro-esophageal reflux Esophagitis presence: esophagitis presence not specified Qualified Code(s): K21.9 - Gastro-esophageal reflux disease without esophagitis (3) Hypertension Hypertension type: essential hypertension Qualified Code(s): I10 - Essential (primary) hypertension
[2021-03-10] MEDS ORDERED: FAMOTIDINE 20 MG in SYRINGE 3 ML IV SCH (09:00)
[2021-03-10] MEDS ORDERED: CYANOCOBALAMIN (VITAMIN B-12) 2,500 MCG TAB.SUBL SL SCH (09:00)
[2021-03-10] MEDS: NSS + 20MEQ KCL 20 MEQ/1,000 ML BAG IV SCH (10:28)
--- NOTE | 2021-03-10 10:28 | Neurology Consultation ---
Date of Consultation March 10, 2021 Assessment & Plan (1) Multiple sclerosis: Multiple sclerosis, progressive phase. No evidence of new or acute MS lesion or stroke on brain MRI. No significant vascular occlusive lesion on CT angiography of the head and neck, does have 2 small incidental 3 mm saccular aneurysms. Patient has had chronic intermittent right-sided weakness for the past year. I note that an MRI done in December 2019 suggested either an acute left basal ganglia infarct at that time versus an active focus of demyelination. I had evaluated this patient during an admission to the [facility] this past September for pseudoprogression in his MS in the context of a urinary tract infection. I again suspect pseudoprogression or pseudorelapse in this patient at this point in time. Patient's Tysabri was switched to Ocrevus this past December. Ocrevus is a highly active MS therapy with a very low incidence of breakthrough disease. There is no indication to switch his Ocrevus at this point in time. Likewise, given that there is no evidence of an acute or new MS lesion, I would not recommend treatment with a corticosteroid at this point in time. Would recommend checking a urinalysis and culture. I will order an up-to-date MRI of the cervical and thoracic spine to assess for any new MS lesions in the spinal cord. Patient should continue with Plavix and atorvastatin. Consultations with PT/OT/speech therapy. If the above spinal cord MRIs reveal any evidence of new or active MS lesions would then likely recommend treatment with Solu-Medrol. I will advise further if necessary pending completion of these test. History of Present Illness Reason for Consultation: MS symptoms vs TIA Requesting Physician: Jacky Farias MD Attending Physician: Bill Dhaliwal MD History of Present Illness The patient is a 75-year-old male who is known to the neurology service, he typically follows with Dr. Jackson or January Hernandez for management of multiple sclerosis diagnosed 15 years ago. I last evaluated this patient during admission to the hospital this past September in the setting of progressive weakness complicated by a fall at home. He underwent MRI of the brain, cervical, and thoracic spine at that point in time. These tests were negative for new or active MS lesions. No MS plaque burden within the thoracic spinal cord but does have chronic cervical spine and brain demyelinating lesions. He does have scattered bihemispheric "black holes" that could be related to either chronic MS plaques or possibly old lacunar infarcts as described by radiology. In fact, he did have an MRI completed last December that revealed an acute lesion within the left basal ganglia that was interpreted as being due to either a small subacute infarct or possibly focus of demyelination. He is on clopidogrel and atorvastatin. The patient had been on Tysabri for 10 years for management of his multiple sclerosis although he is COLLEEN virus antibody positive. Tysabri was subsequently discontinued in favor of Ocrevus, had his first infusion this past December. The patient presented to the emergency department yesterday complaining of a recurrence of right-sided weakness with some associated slurred speech. He admits that he has been experiencing these symptoms intermittently over the past few months although there was apparently some acute change yesterday morning while sitting at a table doing some bills. He is not really able to better qualify his neurologic symptoms at this point in time but does feel as if he is back to his usual self. He denies any recent infection or signs or symptoms suggestive of systemic illness. Given his reported change in neurologic status he was admitted to the hospital for further evaluation and management with a differential diagnosis of MS flare versus TIA. Allergies Allergy/AdvReac Type Severity Reaction Status Date / Time latex Allergy Unknown unknown Verified 03/09/21 12:12 adhesive AdvReac Intermediate RASH UNDER Verified 03/09/21 12:12 TAPES Home Medications Medication Instructions Recorded Confirmed Type albuterol sulfate 2.5 mg INHALATION Q4H PRN 09/05/18 03/09/21 History cyanocobalamin (vitamin B-12) 1,000 mcg PO QAM 09/05/18 03/09/21 History 1,000 mcg tablet (Vitamin B-12) docusate sodium 100 mg capsule 100 mg PO UD PRN 01/08/19 03/09/21 History (Stool Softener) polyethylene glycol 3350 17 17 gm PO DAILY PRN #119 gm 10/14/19 03/09/21 Rx gram/dose oral powder (Miralax) lansoprazole 30 mg capsule,delayed 30 mg PO DAILY #30 cap 03/03/20 03/09/21 Rx release (Prevacid) losartan 50 mg tablet 50 mg PO DAILY #90 tab 04/05/20 03/09/21 Rx atorvastatin 40 mg tablet 40 mg PO QPM #90 tab 05/10/20 03/09/21 Rx clopidogrel 75 mg tablet 75 mg PO DAILY #30 tab 08/26/20 03/09/21 Rx cholecalciferol (vitamin D3) 125 5,000 unit PO DAILY 09/01/20 03/09/21 History mcg (5,000 unit) capsule gabapentin 300 mg capsule 300 mg PO BID #180 cap 10/07/20 03/09/21 Rx temazepam 15 mg capsule 15 mg PO HS PRN #90 cap 12/10/20 03/09/21 Rx ocrelizumab 30 mg/mL intravenous 600 mg IV Q6MO #20 ml 12/29/20 03/09/21 Rx solution (Ocrevus) quetiapine 200 mg tablet 200 mg PO HS 90 Days #90 tab 01/03/21 03/09/21 Rx venlafaxine 150 mg 150 mg PO HS 90 Days #90 cap 01/03/21 03/09/21 Rx capsule,extended release 24 hr ipratropium 20 mcg-albuterol 100 1 puff INHALATION QID #4 gm 01/04/21 03/09/21 Rx mcg/actuation mist for inhalation (Combivent Respimat) tolterodine 4 mg capsule,extended 4 mg PO DAILY 30 Days #30 cap 03/02/21 03/09/21 Rx release 24 hr fluticasone 500 mcg-salmeterol 50 1 inh INHALATION BID 03/09/21 03/09/21 History mcg/dose blistr powdr for inhalation Patient History Medical History (Updated 03/10/21 @ 08:49 by Bill Dhaliwal MD) Acute foreign body of left ear canal Altered mental status COPD (chronic obstructive pulmonary disease) Depression with anxiety Eyebrow laceration Facial abrasion Fall Lumbar radiculopathy Multiple sclerosis Syncope Tinnitus, bilateral Surgical History History of colonoscopy History of open heart surgery S/P cataract surgery S/P tonsillectomy Family History Father , age 78 of cancer (uncertain type) Hypertension Hearing loss Colorectal cancer Mother , age 81 of cancer (uncertain type) Diabetes Hypertension Hearing loss Stroke Breast cancer Sister Hypertension Hearing loss Breast cancer Grandmother (Paternal) Hypertension Brother Hearing loss Social History Smoking Status: Former smoker packs per day: 2; Years Smoked: 30; Number of Years Since Quit: 30; Second Hand Exposure: No; Hx Alcohol Use: No Hx Substance Use: No Preferred Language: Sinhala Communication Ability: Effective Visual Impairment: Limited Hearing Ability: Use of Hearing Aid Master Scheduler Required: No Beliefs That Will Affect Care: None marital status: / Current Living Situation: Family Current Living Situation Comment: lives with grandson current occupational status: retired and disabled current occupation: Retired maintenance department @ [employer] How many Children do You have: 3 Feels Safe at Home: Yes Seatbelt Use: never Sunscreen Use: No Assistive Devices: Walker Review of Systems 2 Constitutional: no fever and no chills Eyes: no blind spots and no diplopia Ear, Nose, Mouth, Throat: no ear pain and no hearing loss Respiratory: no cough and no dyspnea Cardiovascular: no chest pain and no palpitations Gastrointestinal: no constipation and no diarrhea/loose stools Genitourinary: no urinary incontinence or no urinary urgency Musculoskeletal: + muscle weakness; no back pain and no neck pain Integumentary: no rash and no lesions Neurologic: as per Subjective / HPI, + gait abnormality, + unsteadiness, + localized weakness, + loss of sensation, + lack of coordination and + confusion; no headache(s) Psychiatric: no behavioral changes, no depression, no abnormal sleep pattern and no anxiety Hematologic / Lymphatic: no easy bruising and no lymphadenopathy Exam (Neuro) Constitutional: well developed and well nourished; no acute distress Eyes: normal visual glover by confrontation, PERRL, normal accommodation and EOM intact bilaterally; no fundoscopic abnormality, no nystagmus and no papilledema Cardiovascular: Vessels: normal carotid upstroke; no carotid bruit Neurologic: Oriented to:: Person, Place and Time Memory: Short Term Intact and Remote Intact Attention: Span Intact and Concentration Intact Language: Naming Objects and Repeating Phrases Speech Fluency: Dysarthria (mild) and Slowed Speech Aphasia: negative Aphasia Fund of Knowledge: Past History and Vocabulary; negative Current Events Cranial Nerves: Normal II (Visual glover full to confrontation, visual acuity normal), III, IV, (Pupils equal round reactive to light and accommodation, eye movements normal), V (Facial sensation intact), VII (There is no facial droop or weakness), VIII (Hearing intact), IX, X (Palate elevates to midline), XI (Shoulder shrug intact) and XII (Tongue protrudes to midline) Motor Strength: negative Normal Lower Extremities, Normal Upper Extremities or Pronator Drift Spasticity: Arms and Legs Muscle Bulk/Involuntary Movements: Intention Tremor; negative Muscle Atrophy Sensation: negative Light Touch Intact, Pain/Temperature Intact, Vibration Intact or Proprioception Intact Coordination: Normal, Finger-Nose Abnormal and Heel-Hemphill Abnormal; negative Limited Balance or Dysdiadochokinesia Deep Tendon Reflexes: Rt Triceps: 2+, Lt Triceps: 2+, Rt Biceps: 2+, Lt Biceps: 2+, Rt Brachioradialis: 2+, Lt Brachioradialis: 2+, Rt Patellar: 2+, Lt Patellar: 2+, Rt Ankle: 2+ and Lt Ankle: 2+ Special Tests: negative Babinski Present Details: Gait cannot be safely tested in the context of patient's current neurological/medical status. Patient exhibits slow, mildly dysarthric speech. Processing speed reduced. He exhibits mild generalized weakness and difficulty with motor control, ataxic arm and leg movements. Bilateral intention tremor. Dysmetria with [id number] and [id number] bilaterally. Does not have an obvious hemiparesis. Results & Data ([facility]) Vital Signs (Past 12 Hours) Vital Signs Temp Pulse Pulse Resp BP Pulse Ox 03/10/21 08:00 72 03/10/21 07:29 36.8 C 70 19 181/111 H 95 03/10/21 04:24 36.5 C 66 16 163/93 H 96 03/09/21 23:23 69 177/84 H 03/09/21 22:35 36.8 C 81 20 195/66 H 94 Laboratory Results WBC 8.06, hemoglobin 14.3, hematocrit 41.5, platelet count 161, sodium 141, potassium 4.2, BUN 15, creatinine 0.84, glucose 100, hemoglobin A1c 5.9, calcium 9.0, AST 15, ALT 39, troponin less than 0.015, triglycerides 84, cholesterol 95, LDL 35, VLDL 17, HDL 43, Lyme antibody screening negative, SARS-CoV-[address] Findings [address] of the head including CT angiography of the head and neck negative for acute process. There is evidence of atherosclerotic vascular disease without high- grade stenosis or arterial occlusion. Incidental 3 mm saccular aneurysms of the anterior communicating artery and cervical segment of the right internal carotid artery noted. Contrast enhanced brain MRI, MS protocol was completed as well. No evidence of acute abnormality. Numerous bihemispheric black holes noted potentially consistent with old lacunar infarcts or possibly old MS lesions. Periventricular white matter T2 hyperintensity observed, Priest's fingers. 8 mm lacunar infarct (versus old MS lesion) within the left internal capsule noted as well, new compared with previous brain MRI done in September 2020. Reviewed the images as well as the radiologist's interpretation of these tests. Electrocardiogram reveals a normal sinus rhythm, 64 bpm. An echocardiogram completed last March, March 08, 2020, revealed mild concentric left ventricular hypertrophy, no wall motion abnormalities, ejection fraction 65 to 70%, intact interatrial septum, normal left atrial size. A 48-hour Holter monitor completed last January did not reveal any significant arrhythmia. Although there were isolated APD's, isolated nonsustained SVT/atrial tach. Coding Level of Care Code 50877 Initial Inpt Care Lvl 3 Diagnoses Multiple sclerosis G35
[2021-03-10] MEDS ORDERED: LORazepam 0.5 MG/1 ML VIAL IV PRN (11:08)
[2021-03-10 11:13] LABS: Appearance Urine Clear (Clear); Bilirubin Urine Negative (Negative); Blood Urine Negative (Negative); Color Urine Dark Yellow; Glucose Urine UA Negative (Negative); Ketones Urine Negative (Negative); Leukocyte Esterase Urine Negative (Negative); Nitrite Urine Negative (Negative); Protein Urine Negative (Negative); Specific Gravity Urine 1.027 (1.000-1.030); Urobilinogen Urine Negative (Negative); pH Urine 7.5 (4.5-7.5)
[2021-03-10] MEDS ORDERED: LORazepam 2 MG/4 ML VIAL ONE (11:16)
[2021-03-10 11:20] LABS: Hematocrit (blood only) 43.5 % (42-52); Hemoglobin 14.9 g/dL (14.0-18.0)
[2021-03-10] MEDS ORDERED: GADOBUTROL 65ML VIAL IV ONE (13:07)
--- NOTE | 2021-03-10 14:10 | Magnetic Resonance Report ---
MRI OF THE CERVICAL SPINE WITH AND WITHOUT CONTRAST CLINICAL HISTORY: Multiple sclerosis. COMPARISON: MRI of the cervical spine September 02, 2020. TECHNIQUE: Utilizing a 1.5 Aleyda magnet and dedicated coil, multiplanar, multiecho imaging of the ce rvical spine was performed before and after intravenous administration of 9.7 of Gadavist. FINDINGS: Several foci of increased T2 signal within the cervical cord are unchanged since MRI of September 02, 2020 . These include foci at the C2, C3 and C4 levels. There is no cord enhancement to suggest active demy elination. No new foci of demyelination are identified on this examination. The appearance of the cer vical spine is similar to previous MRI. Paravertebral soft tissues are unremarkable. There is no intr acanalicular mass or fluid collection. Increased T2 signal within the C7-T1 intervertebral disc is un changed. There is extensive osteophytosis of the cervical spine. Partial fusion of C5-C7 is again not ed. C2-C3: Central canal is patent. There are is mild left neural foraminal stenosis. Right neural tucker en is patent. C3-C4: Central canal is patent. Severe left and moderate to severe right neural foraminal stenosis i s present. C4-C5: Central canal is patent. There is severe bilateral neural foraminal stenosis. C5-C6: Central canal is patent. There is moderate bilateral neural foraminal stenosis. C6-C7: Central canal is patent. Neural foramen are patent. C7-T1: Central canal and neural foramen are patent. IMPRESSION: 1. No change in several T2 hyperintense foci within the cervical cord since MRI of September 02, 2020. The se represent sites of demyelination. No evidence for active demyelination. No new plaques. 2. No change in appearance of the cervical spine. Multilevel degenerative changes, as described above . No central canal stenosis. Severe multilevel neural foraminal stenosis which is similar to prior ex am. ACT 112: Negative or not required by law. Electronically signed by: Gera Medina M.D. 03/10/2021 2:09 PM
--- NOTE | 2021-03-10 14:23 | Magnetic Resonance Report ---
THORACIC SPINE MRI WITH AND WITHOUT CONTRAST HISTORY: Multiple sclerosis. Weakness. TECHNIQUE: Multiplanar multisequence MRI of the thoracic spine was performed both before and after th e intravenous administration of contrast. COMPARISON: Thoracic spine MRI 09/02/2020. FINDINGS: The thoracic spinal cord demonstrates a normal signal intensity. No abnormal enhancement within the t horacic spinal cord to suggest active demyelination. There is mild diffuse atrophy from the T1-T10 le kiara of the thoracic spinal cord, unchanged. No disc herniations. No significant central canal or neur al foraminal narrowing within the thoracic region. No acute fracture or subluxation within the thorac ic spine. Prevertebral soft tissues are unremarkable. Multiple fused vertebral bodies within the mid to lower thoracic spine, unchanged. Stable fluid signal within the C7-T1 disc space. No endplate eros gary change. Multilevel disc space narrowing and facet arthrosis within the majority of the thoracic s pine remains unchanged. IMPRESSION: 1. No abnormal signal or enhancement within the thoracic spinal cord. No demyelinating plaques identi fied. 2. Mild diffuse atrophy of the majority of the thoracic spinal cord, unchanged. 3. No significant central canal or neural foraminal narrowing within the thoracic spine. 4. Degenerative changes are again noted. ACT 112: Negative or not required by law. Electronically signed by: Augie Fernandez M.D. 03/10/2021 2:21 PM
--- NOTE | 2021-03-10 16:19 | XCELERA ---
[id number]
[2021-03-10] MEDS ORDERED: methylPREDNISolone 1,000 MG in DEXTROSE 5% 250 ML IV STA (16:56)
[2021-03-10] MEDS: VENLAFAXINE HCL XR 150 MG CAPXR PO SCH (20:00)
[2021-03-10] MEDS: ATORVASTATIN 40 MG TAB PO SCH (20:01)
[2021-03-10] MEDS: FAMOTIDINE 20 MG TAB PO SCH (20:01)
[2021-03-10] MEDS: ENOXAPARIN INJ 40 MG/0.4 ML SYR SQ SCH (22:49)
[2021-03-11 08:03] LABS: Hematocrit (blood only) 43.2 % (42-52); Hemoglobin 15.3 g/dL (14.0-18.0); Immature Granulocytes # (auto) 0.01 K/uL (0.00-0.02); Immature Granulocytes % (auto) 0.1 %; Lymphocytes # (auto) 0.72 K/uL (1.2-3.4); Lymphocytes % (auto) 10.1 %; Mean Corpuscular Hemoglobin 29.7 pg (25-34); Mean Corpuscular Hgb Conc 35.4 g/dL (32-36); Mean Corpuscular Volume 83.9 fL (80-100); Mean Platelet Volume 10.2 fL (7.4-10.4); Monocytes # (auto) 0.02 K/uL (0.11-0.59); Monocytes % (auto) 0.3 %; Neutrophils # (auto) 6.41 K/uL (1.4-6.5); Neutrophils % (auto) 89.5 %; Platelet Count 189 K/uL (130-400); RDW Coefficient of Variation 13.5 % (11.5-14.5); Red Blood Count 5.15 M/uL (4.7-6.1); White Blood Count 7.16 K/uL (4.8-10.8)
[2021-03-11 08:32] LABS: Albumin Level 3.4 gm/dl (3.4-5.0); BUN Creatinine Ratio 18.6 (10-20); Calcium 8.8 mg/dl (8.5-10.1); Creatinine Clr Calc Pharmacy 74.4 ml/min; Est GFR (African American) 79.7 ml/min; Est GFR (Non-African American) 68.8 ml/min; Potassium 3.9 mmol/L (3.5-5.1)
[2021-03-11 08:34] LABS: Bilirubin,Total 1.5 mg/dl (0.2-1); Globulin 3.5 gm/dl (2.5-4.0); Total Protein 6.9 gm/dl (6.4-8.2)
[2021-03-11] MEDS: ASPIRIN 81 MG ECTAB PO SCH (08:35)
[2021-03-11] MEDS: CHOLECALCIFEROL 1,000 UNITS 25 MCG TAB PO SCH (08:35)
[2021-03-11] MEDS: CLOPIDOGREL BISULFATE 75 MG TAB PO SCH (08:35)
[2021-03-11] MEDS: GABAPENTIN 300 MG CAP PO SCH (08:36)
[2021-03-11] MEDS: FAMOTIDINE 20 MG TAB PO SCH (08:36)
[2021-03-11] MEDS: FLUTICASONE/VILANTEROL 200/25MCG 14 PUFFS/INHALER INH SCH (08:36)
[2021-03-11] MEDS: CYANOCOBALAMIN 500 MCG TABLET (VITAMIN B-12) PO SCH (08:36)
[2021-03-11] MEDS: PANTOprazole 40 MG TAB PO SCH (08:37)
[2021-03-11] MEDS: LOSARTAN POTASSIUM 50 MG TAB PO SCH (08:37)
[2021-03-11] MEDS: TOLTERODINE TARTRATE LA 4 MG CAPCR PO SCH (08:37)
[2021-03-11] MEDS ORDERED: STROKE PATIENT DISCHARGE STA (11:16)
--- NOTE | 2021-03-11 14:13 | Pharmacy Report ---
Pharmacist Stroke Counseling - Date of Service March 11, 2021 - Scope: Pharmacy has been consulted to provide medication discharge counseling for this patient admitted with [transient ischemic attack] as per the Pharmacist Discharge Counseling for Stroke Patients Protocol. - Medications on Discharge: Home Medications Medication Instructions Recorded Confirmed albuterol sulfate 2.5 mg INHALATION Q4H PRN 09/05/18 03/09/21 cyanocobalamin (vitamin B-12) 1,000 mcg PO QAM 09/05/18 03/09/21 1,000 mcg tablet (Vitamin B-12) docusate sodium 100 mg capsule 100 mg PO UD PRN 01/08/19 03/09/21 (Stool Softener) cholecalciferol (vitamin D3) 125 5,000 unit PO DAILY 09/01/20 03/09/21 mcg (5,000 unit) capsule fluticasone 500 mcg-salmeterol 50 1 inh INHALATION BID 03/09/21 03/09/21 mcg/dose blistr powdr for inhalation Medication Instructions Recorded polyethylene glycol 3350 17 17 gm PO DAILY PRN #119 gm 10/14/19 gram/dose oral powder (Miralax) lansoprazole 30 mg capsule,delayed 30 mg PO DAILY #30 cap 03/03/20 release (Prevacid) losartan 50 mg tablet 50 mg PO DAILY #90 tab 04/05/20 atorvastatin 40 mg tablet 40 mg PO QPM #90 tab 05/10/20 clopidogrel 75 mg tablet 75 mg PO DAILY #30 tab 08/26/20 gabapentin 300 mg capsule 300 mg PO BID #180 cap 10/07/20 temazepam 15 mg capsule 15 mg PO HS PRN #90 cap 12/10/20 ocrelizumab 30 mg/mL intravenous 600 mg IV Q6MO #20 ml 12/29/20 solution (Ocrevus) quetiapine 200 mg tablet 200 mg PO HS 90 Days #90 tab 01/03/21 venlafaxine 150 mg 150 mg PO HS 90 Days #90 cap 01/03/21 capsule,extended release 24 hr ipratropium 20 mcg-albuterol 100 1 puff INHALATION QID #4 gm 01/04/21 mcg/actuation mist for inhalation (Combivent Respimat) tolterodine 4 mg capsule,extended 4 mg PO DAILY 30 Days #30 cap 03/02/21 release 24 hr aspirin 81 mg tablet,delayed 81 mg PO QAM #90 tab 03/11/21 release prednisone 20 mg tablet 20 mg PO UD #20 tab 03/11/21 - Action: The above medications, specifically ones for stroke treatment/prophylaxis, have been reviewed in detail with the patient and/or patient computer help desk representative(s) prior to discharge. This includes indication, common adverse reactions, drug interactions, and medication administration. Medication counseling has been employed using the teach-back method to ensure understanding. - Outcome: The patient and/or patient computer help desk representative(s) have demonstrated understanding of the medications. Additional comments: Talked with patient about new medications on discharge. No questions/concerns from patient. No pertinent positives on interview Thank you for allowing pharmacy to be involved in the care of this patient. Please call [phone] with any additional questions
--- NOTE | 2021-03-11 19:46 | Discharge Summary ---
Date of Service March 11, 2021 Admission HPI Per Admitting Provider The patient is a 75-year-old male with a past medical history including multiple sclerosis, closed head injury, nonruptured cerebral aneurysm, left carotid stenosis, hemiparesis affecting right side as late effect CVA, left-sided weakness, lumbar DDD, gait disturbance, hypertension, chronic low back pain, lumbar radiculopathy, COPD, depression with anxiety, bilateral sensorineural hearing loss, GERD and hyperglycemia. Patient's daughter reports that she had tried to contact the patient yesterday during the day, but did not succeed, and he did not hear the phone ringing. His son notes this morning symptoms of di fficulty speech, difficulty swallowing, and worsening of his right-sided weakness. It was also noted the patient was starting to have difficulty with choking while eating last evening. Principal Diagnosis TIA versus MS flare Discharge Exam The patient appeared chronically ill does have some baseline lower extremity weakness right leg greater than left Vital signs as documented. Lungs are clear to auscultation and appear unlabored Cardiac exam, Rhythm is regular.. No murmurs, rubs or gallops. Abdominal exam reveals normal bowel sounds, soft non tender, no masses Extremities are nonedematous and both pedal pulses are normal. Neurologic exam is alert and oriented, baseline focal loss of strength right lower extremity with some ambulation difficulties Skin is without bruises or rashes Psychologically is without concerns for anxiety or depression. Discharge Data Allergies Allergy/AdvReac Type Severity Reaction Status Date / Time latex Allergy Unknown unknown Verified 03/09/21 12:12 adhesive AdvReac Intermediate RASH UNDER Verified 03/09/21 12:12 TAPES Consultations 03/09/21 11:21 ED Decision to Admit Stat 03/09/21 23:00 Consult Neurology Routine Ordered Studies 03/09/21 10:24 CT angio head w con Stat CT angio neck with con Stat CT head/brain wo con Stat 03/09/21 11:20 MR brain MS wo/w con Stat 03/10/21 10:28 MR cervical spine wo/w con Routine MR thoracic spine wo/w con Routine Hospital Course (1) Slurring of speech: possible TIA images of brain did not support CVA, Slurring of speech/dysphagia/ambulatory dysfunction/residual right hemiparesis/transient neurologic symptoms- also must consider MS flare, after discussion with neurology and review of images of his cervical spine showing persistent plaques we'll give a dose of Solu-Medrol and monitor his progress stroke without TPA protocol order set utilized on presentation Consult PT/OT/feels patient able to go home cared for by family. Speech is cleared for swallowing normal food Continue clopidogrel, added aspirin continue atorvastatin For the possibility of MS flare with his cervical spine impacting both his speech swallowing and lower extremities he was given gauze milligrams of Solu- Medrol in the evening of 03/10 he feels subjective improvement subsequently will be on a prednisone taper at home and follow-up with neurology as an outpatient. He was noted he had a low-grade temperature or 99.5 temperature prior to going home he did have a negative urinalysis on the 7 prior to ruling out encephalopathy as cause of his weakness (2) Dysphagia: See above (3) Ambulatory dysfunction: See above (4) Cerebral aneurysm, nonruptured: Patient with known previous aneurysm, viewed current imaging no acute events seems unchanged, MRI of brain 03/09, multiple small lacunar infarcts nothing seems acute (5) Hemiparesis affecting right side as late effect of cerebrovascular accident: mild residual hemiplegia remains from previous stroke since there is no cerebral changes on CT or MRI but cervical spine changes of plaques consistent with MS this likely may be what is originating his subjective feeling of worsening right leg weakness. steroid bolus will be utilized to see if he improves (6) Hypertension: typically takes losartan, initially with permissive hypertension, will follow after todays losartan to decide if adjustment is needed (7) COPD (chronic obstructive pulmonary disease): Breo elipta substituted for Advair. Have DuoNebs available as needed (8) Multiple sclerosis: typically on ocrelizumab with neurology oversight Subjective improvement after 1 dose of 1 g Solu-Medrol and patient will be home on tapering prednisone (9) Depression with anxiety: venlafaxine, temazepam, quetiapine, gabapentin (10) Gastro-esophageal reflux: Transition to p.o. famotidine (11) Hyperglycemia: History of hyperglycemia without diagnosis of diabetes Glucose 164 upon admission normal hemoglobin A1c effectively rules out diabetes Daughter updated plans to have patient come up with her for a few weeks after discharge trying to get a room ready for him at this time in her home Total Time Total Time Spent Total Time Spent (In Minutes): It required greater than 30 minutes to prepare this patient for discharge Discharge Plan Discharge Items Patient Disposition: Home - Home Health Services Reason For Visit: WEAKNESS, DYSPHAGIA, DYSARTHRIA Discharge Diagnosis: tia multiple sclerosis Activity: Per Instructions section Activity Comment: please follow up with physical therapy as an outpt Non-emergency contact: Primary Care Provider and Neurologist Call non-emergency contact if: you have any medication questions and your symptoms worsen Follow-up/Referrals: Brandon Jackson MD [Physician] - (Dr. Jackson is unavailable.) Jude De La Rosa MD [Primary Care Provider] - 03/17/21 11:00 am (Please follow up with Dr. De La Rosa on 03/17/21 at 11:00 am. Please arrive to the office at 10:45 am for your appointment. If you are unable to keep this appointment, please call the office to reschedule at [phone].) January Hernandez PA-C [Physician [employer]] - 06/20/21 11:00 am (Dr. Jackson is unavailable. Please follow up with January Hernandez PA-C on Sunday06/20/21 at 11:00 am. Please arrive to the office at 10:45 am for your appointment. Office will call with sooner appointment date and time, if available. If you are unable to keep this appointment, please call the office to reschedule at [phone].) Diet: Regular Addtl Attending Provider Instructions: plese restart your aspirin once a day for 81 mg, you symptoms likley represented a transient ischemic attack but we cannot rule out some affects of the multiple sclerosis seen on your mri of your cervical spine please see outpatient physical therapy please consider living with your daughter for imcreased help during the day you will be given a tapering dose of streroids Pending Studies at Discharge: No Stand-Alone Forms: [employer], Smoking Cessation Medications and DC Order Prescriptions: New aspirin 81 mg Tablet,Delayed Release (Dr/Ec) 81 mg PO QAM Qty: 90 RF: 0 prednisone 20 mg tablet 20 mg PO UD Qty: 20 RF: 0 Continued polyethylene glycol 3350 [Miralax] 17 gram/dose powder 17 gm PO DAILY PRN (Reason: constipation) Qty: 119 RF: 2 atorvastatin 40 mg tablet 40 mg PO QPM Qty: 90 RF: 3 clopidogrel 75 mg tablet 75 mg PO DAILY Qty: 30 RF: 5 temazepam 15 mg capsule 15 mg PO HS PRN (Reason: sleep) Qty: 90 RF: 1 Ocrevus 30 mg/mL solution 600 mg IV Q6MO Qty: 20 RF: 1 venlafaxine 150 mg capsule,extended release 24hr 150 mg PO HS 90 Days Qty: 90 RF: 1 quetiapine 200 mg tablet 200 mg PO HS 90 Days Qty: 90 RF: 1 Combivent Respimat 20-100 mcg/actuation mist 1 puff inhalation QID Qty: 4 RF: 5 tolterodine 4 mg capsule,extended release 24hr 4 mg PO DAILY 30 Days Qty: 30 RF: 3 cholecalciferol (vitamin D3) 125 mcg (5,000 unit) capsule 5,000 unit PO DAILY RF: 0 gabapentin 300 mg capsule 300 mg PO BID Qty: 180 RF: 1 losartan 50 mg tablet 50 mg PO DAILY Qty: 90 RF: 3 lansoprazole [Prevacid] 30 mg capsule,delayed release(DR/EC) 30 mg PO DAILY Qty: 30 RF: 11 albuterol sulfate 2.5 mg /3 mL (0.083 %) Solution For Nebulization 2.5 mg INHALATION Q4H PRN (Reason: Shortness Of Breath) RF: 0 cyanocobalamin (vitamin B-12) [Vitamin B-12] 1,000 mcg Tablet 1,000 mcg PO QAM RF: 0 docusate sodium [Stool Softener] 100 mg Capsule 100 mg PO UD PRN (Reason: constipation) RF: 0 fluticasone propion-salmeterol 500-50 mcg/dose blister with device 1 inh inhalation BID RF: 0 Discharge Orders: Discharge Order (Routine); Ordered 03/11/21 Ordered By: Bill Dhaliwal Admission Data Admit Date/Time: 03/09/21 11:50 Attending Provider: Bill Dhaliwal Admit Provider: Jacky Farias Primary Care Provider: Jude De La Rosa Other Providers: Jacky Farias ; Brandon Jackson ; [facility] Other Interventions: Discharge Summary Assessment (RN) Last Done: 03/11/21 12:19 Coding Level of Care Code D/C DAY MANAGEMENT >30 MINS Diagnoses Slurring of speech R47.81 Dysphagia R13.10 Ambulatory dysfunction R26.2 Cerebral aneurysm, nonruptured I67.1 Hemiparesis affecting right side as late effect of cerebrovascular accident I69.351 Hypertension I10 Hypertension type: essential hypertension COPD (chronic obstructive pulmonary disease) J44.9 COPD type: unspecified COPD Multiple sclerosis G35 Depression with anxiety F41.8 Gastro-esophageal reflux K21.9 Esophagitis presence: esophagitis presence not specified Hyperglycemia R73.9
== END 2021-03-11 15:54 | disposition home health service (06) | DRG 59 ==
LOC: ED 10:31 → SUATTDRO 11:50 → 2S 11:50
DX: I69.351 Hemiplegia and hemiparesis following cerebral infarction affecting right dominant side; Z82.49 Family history of ischemic heart disease and other diseases of the circulatory system; Z82.3 Family history of stroke; G45.9 Transient cerebral ischemic attack, unspecified; Z79.899 Other long term (current) drug therapy; R40.2412 Glasgow coma scale score 13-15, at arrival to emergency department; Z87.891 Personal history of nicotine dependence; J44.9 Chronic obstructive pulmonary disease, unspecified; F41.8 Other specified anxiety disorders; I10 Essential (primary) hypertension; Z83.3 Family history of diabetes mellitus; K21.9 Gastro-esophageal reflux disease without esophagitis; I67.1 Cerebral aneurysm, nonruptured; R29.702 NIHSS score 2; Z91.048 Other nonmedicinal substance allergy status; R73.9 Hyperglycemia, unspecified; Z91.040 Latex allergy status; G35 Multiple sclerosis; Z79.02 Long term (current) use of antithrombotics/antiplatelets

== ENCOUNTER 2021-09-21 10:59 | Observation (INO) ==
--- NOTE | 2021-09-21 11:27 | Emergency Department Note ---
Impression & Plan Weakness, Slurred speech, Stroke-like symptoms, Acute dehydration ED Provider Note NAME: JEANIE PARIS Sr AGE: 75 SEX: M : 1945 ARRIVES VIA: Ambulance INFORMANT: [Patient][daughter] ED PROVIDER(S): [Ralf Johnson MD] CHIEF COMPLAINT: Stroke symptoms HISTORY OF PRESENT ILLNESS: The patient is a 75-year-old male who presents to the ER with at least 2 days of increasing weakness, fatigue and loss of the ability to really help himself at home. He is living with his daughter who is also the power of energy attorney. The patient was in our ED 2 days ago and diagnosed with bronchitis. He was placed on Zithromax. The patient did have his gabapentin decreased several weeks ago, he is on medications for MS. Patient has had previous CVAs with persisting right-sided weakness. There has been no fever, no real cough. His urine has been dark and foul- smelling. He has not had much to eat or drink as he has no appetite. He has not complained of any abdominal pain, there has been no vomiting or diarrhea. No fever recorded. REVIEW OF SYSTEMS: See HPI for pertinent positives and negatives. A total of ten systems were reviewed and were otherwise negative. PMHx/PSHx: See Below SOCIAL HISTORY: See Below. PHYSICAL EXAM: GENERAL: Patient is in no acute distress. HEENT: No acute trauma, normocephalic atraumatic, mucous membranes very dry, no nasal congestion, no scleral icterus. NECK: No stridor, no adenopathy, no meningismus, trachea is midline. LUNGS: Clear to auscultation bilaterally when listening anterior, no wheeze, no rhonchi, breath sounds equal. HEART: Subtle systolic murmur, regular rate and rhythm. ABDOMEN: Soft, nontender, bowel sounds positive, no hernias, no peritonitis. EXTREMITIES: No cyanosis or edema, full range of motion of all the joints without pain or difficulty, no signs for acute trauma. NEUROLOGIC: Sleepy but awakes to voice, no obvious extremity deficit. Able to follow commands. Speech is slightly slurred. SKIN: No rash, no jaundice, no diaphoresis. Groin: No rash. DIFFERENTIAL DIAGNOSIS: Infection, UTI, COVID-19, pneumonia, dehydration, metabolic abnormality, hypo/hyperglycemia, electrolyte disturbance, anemia, hypoxia, cardiac sources, intracerebral event, toxicologic issues, stroke, TIA, MS flare, as well as other pathologies. EMERGENCY DEPARTMENT COURSE/PROCEDURES: ECG: Indication was weakness. The ECG shows a normal sinus rhythm with a rate of 85. The QTc is 483. There is no ST elevation, no PVCs. Continuous Cardiac Monitoring: An order was placed for continuous cardiac monitoring. The monitor shows a rate of 87 with normal sinus rhythm. Critical Care Note: I have personally spent 38 minutes of critical care time in the direct management of this patient. This includes bedside care, interpretation of diagnostic studies, and testing, discussion with consultants, patient, and family members, and other required patient management activities. This 38 minutes is in excess of all separately billable procedures. MEDICAL DECISION MAKING: There is no leukocytosis. A mild anemia was noted. There is a normal platelet count. Normal INR. Potassium was a bit low at 3.2, no renal failure. Lactic acid level was not elevated making sepsis less likely. No liver enzyme elevation. Ammonia level was not elevated. ECG shows a normal sinus rhythm, no ischemia. Cardiac enzyme testing x1 is not consistent with acute cardiac injury. The patient appears to be in a euthyroid state. Respiratory bio fire panel was completely negative. Chest x-ray did not show pneumonia or CHF. Brain CT showed no acute bleed or mass-effect. Urinalysis result is currently pending. On exam, patient appeared dehydrated and had some speech slur. He appeared somnolent. The patient was aggressively managed given the possibility of sepsis or stroke. He received IV saline for hydration, 1.5 L. He was given IV potassium. The patient does seem a bit more awake and interactive. Possibly, his symptoms are all from dehydration. I do think further care in the hospital is warranted. This is a second visit in just a few days. He is not functioning well at home. I spoke with the patient's daughter, I spoke with the patient, I talked to case management. The on-call hospitalist was consulted. Past Med/Surg History Medical History (Updated 09/21/21 @ 19:24 by Ralf Johnson MD) Acute foreign body of left ear canal Altered mental status COPD (chronic obstructive pulmonary disease) Depression with anxiety Eyebrow laceration Facial abrasion Fall Lumbar radiculopathy Multiple sclerosis Syncope Tinnitus, bilateral Surgical History History of colonoscopy History of open heart surgery S/P cataract surgery S/P tonsillectomy Family History Father , age 78 of cancer (uncertain type) Hypertension Hearing loss Colorectal cancer Mother , age 81 of cancer (uncertain type) Diabetes Hypertension Hearing loss Stroke Breast cancer Sister Hypertension Hearing loss Breast cancer Grandmother (Paternal) Hypertension Brother Hearing loss Social History Smoking Status: Former smoker Tobacco Type: Cigarettes packs per day: 2; Years Smoked: 30; Number of Years Since Quit: 30; Second Hand Exposure: No; Hx Alcohol Use: No Hx Substance Use: No Preferred Language: Slovenian Communication Ability: Effective Visual Impairment: Limited Hearing Ability: Use of Hearing Aid Air Pollution Inspector Required: No Beliefs That Will Affect Care: None marital status: / Current Living Situation: Family Current Living Situation Comment: lives with grandson current occupational status: retired and disabled current occupation: Retired maintenance department @ [employer] How many Children do You have: 3 Feels Safe at Home: Yes Seatbelt Use: never Sunscreen Use: No Assistive Devices: Denture - Upper and Walker Allergies Allergies Allergy/AdvReac Type Severity Reaction Status Date / Time latex Allergy Unknown unknown Verified 09/21/21 14:21 adhesive AdvReac Intermediate RASH UNDER Verified 09/21/21 14:21 TAPES Home Meds Home Medications Medication Instructions Recorded Confirmed docusate sodium 100 mg capsule 100 mg PO HS 01/08/19 09/21/21 (Stool Softener) cholecalciferol (vitamin D3) 125 5,000 unit PO DAILY 09/01/20 09/21/21 mcg (5,000 unit) capsule albuterol sulfate 90 mcg/actuation 2 puff INHALATION Q4 PRN 09/19/21 09/21/21 aerosol inhaler fluticasone 500 mcg-salmeterol 50 1 ea INHALATION BID 09/19/21 09/21/21 mcg/dose blistr powdr for inhalation gabapentin 300 mg capsule 300 mg PO HS 09/19/21 09/21/21 ipratropium 20 mcg-albuterol 100 2 puff INHALATION QID PRN 09/19/21 09/21/21 mcg/actuation mist for inhalation (Combivent Respimat) lansoprazole 30 mg capsule,delayed 30 mg PO QAM 09/19/21 09/21/21 release (Prevacid) losartan 50 mg tablet 50 mg PO QAM 09/19/21 09/21/21 metformin 500 mg tablet,extended 500 mg PO QAM 09/19/21 09/21/21 release 24 hr msxjjlivhsmk-xkubahdn-orsvcu tablet 1 tab PO QAM 09/19/21 09/21/21 temazepam 15 mg capsule 15 mg PO HS 09/19/21 09/21/21 tolterodine 4 mg capsule,extended 4 mg PO QAM 09/19/21 09/21/21 release 24 hr vitamin B complex 1 tab PO QAM 09/19/21 09/21/21 Previous Rx's Medication Instructions Recorded polyethylene glycol 3350 17 17 gm PO DAILY PRN #119 gm 10/14/19 gram/dose oral powder (Miralax) aspirin 81 mg tablet,delayed 81 mg PO QAM #90 tab 03/11/21 release ocrelizumab 30 mg/mL intravenous 600 mg IV Q6MO #20 ml 05/12/21 solution (Ocrevus) clopidogrel 75 mg tablet 75 mg PO DAILY #90 tab 05/25/21 quetiapine 200 mg tablet 200 mg PO HS 90 Days #90 tab 05/25/21 venlafaxine 150 mg 150 mg PO HS 90 Days #90 cap 05/25/21 capsule,extended release 24 hr atorvastatin 40 mg tablet 40 mg PO QPM #90 tab 05/30/21 azithromycin 250 mg tablet 250 mg PO DAILY 4 Days #4 tab 09/19/21 Results & Data (ED) Vital Signs Vital Signs - 24 hr 09/21/21 11:05 09/21/21 11:15 09/21/21 11:20 Temperature 36.7 C Temperature Source Oral Pulse Rate 87 84 Pulse Rate [Apical] Pulse Rate from SpO2 Sensor 84 Pulse Rhythm [Apical] Respiratory Rate 14 19 Respiratory Effort / Characteristics Non-Labored Respiratory Depth Normal Blood Pressure 127/73 Blood Pressure [Left Arm] Blood Pressure Mean 91 Blood Pressure Mean [Left Arm] Pulse Oximetry 99 96 99 Oxygen Delivery Method Room Air Room Air Room Air Sepsis Recent Fever Within 48 Hours No Sepsis New/Unexplained Change in Mental Status No Sepsis Action Taken by Nursing No Action Required 09/21/21 11:30 09/21/21 11:44 09/21/21 11:45 Temperature Temperature Source Pulse Rate 80 79 77 Pulse Rate [Apical] Pulse Rate from SpO2 Sensor 76 79 77 Pulse Rhythm [Apical] Respiratory Rate 17 19 18 Respiratory Effort / Characteristics Respiratory Depth Blood Pressure 115/74 Blood Pressure [Left Arm] Blood Pressure Mean 87 Blood Pressure Mean [Left Arm] Pulse Oximetry 94 95 95 Oxygen Delivery Method Room Air Room Air Room Air Sepsis Recent Fever Within 48 Hours Sepsis New/Unexplained Change in Mental Status Sepsis Action Taken by Nursing 09/21/21 12:00 09/21/21 12:50 09/21/21 14:00 Temperature Temperature Source Pulse Rate 71 Pulse Rate [Apical] 64 67 Pulse Rate from SpO2 Sensor 72 Pulse Rhythm [Apical] Regular Regular Respiratory Rate 14 16 16 Respiratory Effort / Characteristics Non-Labored Non-Labored Respiratory Depth Normal Normal Blood Pressure 145/80 H Blood Pressure [Left Arm] 159/85 H 159/84 H Blood Pressure Mean 101 Blood Pressure Mean [Left Arm] 109 109 Pulse Oximetry 97 99 97 Oxygen Delivery Method Room Air Room Air Room Air Sepsis Recent Fever Within 48 Hours Sepsis New/Unexplained Change in Mental Status Sepsis Action Taken by [facility] Medications Current Medication List: was personally reviewed by me Laboratory Data Attestation: I reviewed the patient's lab results. Result diagrams: 09/21/21 11:40 09/21/21 11:40 Lab Results 09/21/21 09/21/21 09/21/21 Range/Units 11:40 11:40 11:40 WBC 6.69 (4.8-10.8) K/uL RBC 4.49 L (4.7-6.1) M/uL Hgb 13.8 L (14.0-18.0) g/dL Hct 40.2 L (42-52) % MCV 89.5 (80-100) fL MCH 30.7 (25-34) pg MCHC 34.3 (32-36) g/dL RDW Std Deviation 42.3 (36.4-46.3) fL RDW Coeff of Lilia 13.0 (11.5-14.5) % Plt Count 152 (130-400) K/uL MPV 10.8 H (7.4-10.4) fL Immature Gran % (Auto) 0.1 % Neut % (Auto) 64.6 % Lymph % (Auto) 23.8 % [place] % (Auto) 7.5 % Eos % (Auto) 3.7 % Baso % (Auto) 0.3 % Neut # (Auto) 4.32 (1.4-6.5) K/uL Lymph # (Auto) 1.59 (1.2-3.4) K/uL [place] # (Auto) 0.50 (0.11-0.59) K/uL Eos # (Auto) 0.25 (0-0.5) K/uL Baso # (Auto) 0.02 (0-0.2) K/uL Immature Gran # (Auto) 0.01 (0.00-0.02) K/uL PT 11.4 (9.0-12.0) Seconds INR 1.1 (0.9-1.1) Sodium (136-145) mmol/L Potassium (3.5-5.1) mmol/L Chloride (98-107) mmol/L Carbon Dioxide (21-32) mmol/L Anion Gap (3-11) BUN (6-23) mg/dl Creatinine (0.6-1.4) mg/dl Est Cr Clr Drug Dosing Est GFR ( Amer) ml/min Est GFR (Non-Af Amer) ml/min BUN/Creatinine Ratio (10-20) Glucose (70-99(Fasting)) mg/dl Lactate (0.4-2.0) mmol/L Calcium (8.5-10.1) mg/dl Magnesium (1.7-2.4) mg/dl Total Bilirubin (0.2-1.0) mg/dl AST (13-39) U/L ALT (7-52) U/L Alkaline Phosphatase (34-104) U/L Ammonia (18-72) umol/L Troponin I High Sens 5.3 (0-20) pg/ml Total Protein (6.0-8.3) gm/dl Albumin (3.4-5.0) gm/dl Globulin (2.5-4.0) gm/dl Albumin/Globulin Ratio (0.9-2) TSH (0.300-4.500) uIu/ml Adenovirus (PCR) (NotDetected) B. pertussis DNA (PCR) (NotDetected) B.parapertussis DNA PCR (NotDetected) C. pneumoniae DNA (PCR) (NotDetected) Coronavirus OC43 (PCR) (NotDetected) Coronavirus HKU1 (PCR) (NotDetected) Coronavirus 229E (PCR) (NotDetected) SARS-CoV-2 (PCR) (NotDetected) Coronavirus NL63 (PCR) (NotDetected) Human Metapneumovir PCR (NotDetected) Influenza Type A (PCR) (NotDetected) Influenza Type B (PCR) (NotDetected) M. pneumoniae (PCR) (NotDetected) Parainfluenza 1 (PCR) (NotDetected) Parainfluenza 2 (PCR) (NotDetected) Parainfluenza 3 (PCR) (NotDetected) Parainfluenza 4 (PCR) (NotDetected) RSV (PCR) (NotDetected) Entero/Rhino (PCR) (NotDetected) 09/21/21 09/21/21 09/21/21 Range/Units 11:40 11:40 11:40 WBC (4.8-10.8) K/uL RBC (4.7-6.1) M/uL Hgb (14.0-18.0) g/dL Hct (42-52) % MCV (80-100) fL MCH (25-34) pg MCHC (32-36) g/dL RDW Std Deviation (36.4-46.3) fL RDW Coeff of Lilia (11.5-14.5) % Plt Count (130-400) K/uL MPV (7.4-10.4) fL Immature Gran % (Auto) % Neut % (Auto) % Lymph % (Auto) % [place] % (Auto) % Eos % (Auto) % Baso % (Auto) % Neut # (Auto) (1.4-6.5) K/uL Lymph # (Auto) (1.2-3.4) K/uL [place] # (Auto) (0.11-0.59) K/uL Eos # (Auto) (0-0.5) K/uL Baso # (Auto) (0-0.2) K/uL Immature Gran # (Auto) (0.00-0.02) K/uL PT (9.0-12.0) Seconds INR (0.9-1.1) Sodium 140 (136-145) mmol/L Potassium 3.2 L (3.5-5.1) mmol/L Chloride 105 (98-107) mmol/L Carbon Dioxide 31 (21-32) mmol/L Anion Gap 4 (3-11) BUN 28 H (6-23) mg/dl Creatinine 0.77 D (0.6-1.4) mg/dl Est Cr Clr Drug Dosing Not Reportable Est GFR ( Amer) 103.6 ml/min Est GFR (Non-Af Amer) 89.4 ml/min BUN/Creatinine Ratio 36.4 H (10-20) Glucose 137 H (70-99(Fasting)) mg/dl Lactate 1.4 (0.4-2.0) mmol/L Calcium 8.7 (8.5-10.1) mg/dl Magnesium 1.8 (1.7-2.4) mg/dl Total Bilirubin 0.7 (0.2-1.0) mg/dl AST 16 (13-39) U/L ALT 19 (7-52) U/L Alkaline Phosphatase 70 (34-104) U/L Ammonia 20.0 (18-72) umol/L Troponin I High Sens (0-20) pg/ml Total Protein 5.8 L (6.0-8.3) gm/dl Albumin 3.5 (3.4-5.0) gm/dl Globulin 2.3 L (2.5-4.0) gm/dl Albumin/Globulin Ratio 1.5 (0.9-2) TSH (0.300-4.500) uIu/ml Adenovirus (PCR) (NotDetected) B. pertussis DNA (PCR) (NotDetected) B.parapertussis DNA PCR (NotDetected) C. pneumoniae DNA (PCR) (NotDetected) Coronavirus OC43 (PCR) (NotDetected) Coronavirus HKU1 (PCR) (NotDetected) Coronavirus 229E (PCR) (NotDetected) SARS-CoV-2 (PCR) (NotDetected) Coronavirus NL63 (PCR) (NotDetected) Human Metapneumovir PCR (NotDetected) Influenza Type A (PCR) (NotDetected) Influenza Type B (PCR) (NotDetected) M. pneumoniae (PCR) (NotDetected) Parainfluenza 1 (PCR) (NotDetected) Parainfluenza 2 (PCR) (NotDetected) Parainfluenza 3 (PCR) (NotDetected) Parainfluenza 4 (PCR) (NotDetected) RSV (PCR) (NotDetected) Entero/Rhino (PCR) (NotDetected) 09/21/21 09/21/21 Range/Units 11:40 11:40 WBC (4.8-10.8) K/uL RBC (4.7-6.1) M/uL Hgb (14.0-18.0) g/dL Hct (42-52) % MCV (80-100) fL MCH (25-34) pg MCHC (32-36) g/dL RDW Std Deviation (36.4-46.3) fL RDW Coeff of Lilia (11.5-14.5) % Plt Count (130-400) K/uL MPV (7.4-10.4) fL Immature Gran % (Auto) % Neut % (Auto) % Lymph % (Auto) % [place] % (Auto) % Eos % (Auto) % Baso % (Auto) % Neut # (Auto) (1.4-6.5) K/uL Lymph # (Auto) (1.2-3.4) K/uL [place] # (Auto) (0.11-0.59) K/uL Eos # (Auto) (0-0.5) K/uL Baso # (Auto) (0-0.2) K/uL Immature Gran # (Auto) (0.00-0.02) K/uL PT (9.0-12.0) Seconds INR (0.9-1.1) Sodium (136-145) mmol/L Potassium (3.5-5.1) mmol/L Chloride (98-107) mmol/L Carbon Dioxide (21-32) mmol/L Anion Gap (3-11) BUN (6-23) mg/dl Creatinine (0.6-1.4) mg/dl Est Cr Clr Drug Dosing Est GFR ( Amer) ml/min Est GFR (Non-Af Amer) ml/min BUN/Creatinine Ratio (10-20) Glucose (70-99(Fasting)) mg/dl Lactate (0.4-2.0) mmol/L Calcium (8.5-10.1) mg/dl Magnesium (1.7-2.4) mg/dl Total Bilirubin (0.2-1.0) mg/dl AST (13-39) U/L ALT (7-52) U/L Alkaline Phosphatase (34-104) U/L Ammonia (18-72) umol/L Troponin I High Sens (0-20) pg/ml Total Protein (6.0-8.3) gm/dl Albumin (3.4-5.0) gm/dl Globulin (2.5-4.0) gm/dl Albumin/Globulin Ratio (0.9-2) TSH 0.643 (0.300-4.500) uIu/ml Adenovirus (PCR) Not Detected (NotDetected) B. pertussis DNA (PCR) Not Detected (NotDetected) B.parapertussis DNA PCR Not Detected (NotDetected) C. pneumoniae DNA (PCR) Not Detected (NotDetected) Coronavirus OC43 (PCR) Not Detected (NotDetected) Coronavirus HKU1 (PCR) Not Detected (NotDetected) Coronavirus 229E (PCR) Not Detected (NotDetected) SARS-CoV-2 (PCR) Not Detected (NotDetected) Coronavirus NL63 (PCR) Not Detected (NotDetected) Human Metapneumovir PCR Not Detected (NotDetected) Influenza Type A (PCR) Not Detected (NotDetected) Influenza Type B (PCR) Not Detected (NotDetected) M. pneumoniae (PCR) Not Detected (NotDetected) Parainfluenza 1 (PCR) Not Detected (NotDetected) Parainfluenza 2 (PCR) Not Detected (NotDetected) Parainfluenza 3 (PCR) Not Detected (NotDetected) Parainfluenza 4 (PCR) Not Detected (NotDetected) RSV (PCR) Not Detected (NotDetected) Entero/Rhino (PCR) Not Detected (NotDetected) Administered Medications Insulin Aspart (Insulin Aspart Per Unit) 0 units SC ACHS MUKUL Stop: 10/21/21 16:29 Last Admin: 09/21/21 16:54 Dose: Not Given Documented by: [id number] Discontinued Medications Sodium Chloride (Nss 1000ml) 1,000 mls @ 999 mls/hr IV .Q1H1M MUKUL Stop: 09/21/21 12:30 Last Infusion: 09/21/21 13:00 Dose: 0 mls/hr Documented by: [id number] Admin: 09/21/21 11:42 Dose: 999 mls/hr Documented by: [id number] Potassium Chloride (K Diego / Wtr) 10 meq in 100 mls @ 100 mls/hr IV ONE ONE; Protocol Stop: 09/21/21 14:05 Last Infusion: 09/21/21 14:47 Dose: 0 mls/hr Documented by: [id number] Admin: 09/21/21 13:48 Dose: 100 mls/hr Documented by: [id number] Sodium Chloride (Nss 1000ml) 500 mls @ 999 mls/hr IV .Q31M ONE Stop: 09/21/21 13:55 Last Infusion: 09/21/21 14:47 Dose: 0 mls/hr Documented by: [id number] Admin: 09/21/21 13:28 Dose: 999 mls/hr Documented by: [id number] Imaging Data Radiologist's Impression: Chest X-Ray 09/21/21 11:20 XR chest 1V portable CLINICAL HISTORY: weakness COMPARISON STUDY: Chest radiograph and chest CT September 19, 2021. FINDINGS: Right subclavian Ljzsjd-v-Eghv is in place. There is no pneumothorax or pleural effusion. Cardiomediastinal silhouette is stable. No evidence for pulmonary edema. No consolidation to suggest pneumonia. No change in appearance of the chest. Multiple old left-sided rib fractures are incidentally noted. IMPRESSION: No acute cardiopulmonary findings. ACT 112: Negative or not required by law. Electronically signed by: Gera Medina M.D. 09/21/2021 12:[address] 09/21/21 11:20 CT head/brain wo con CLINICAL HISTORY: 75 years-old Male with confusion. Acutely altered mental status TECHNIQUE: Multiple axial CT images of the head were obtained without contrast. A dose lowering technique was utilized adhering to the principles of ALARA. CT DOSE: 614.27 mGy.cm COMPARISON: Head CT 09/19/2021 FINDINGS: No acute intracranial hemorrhage, midline shift, intracranial mass, hydrocephalus, territorial ischemia or abnormal extra-axial collection. Age- related involutional changes. White matter hypodensities suggestive of chronic microvascular ischemic disease. Numerous chronic appearing infarcts of the payton radiata and basal ganglia. Cerebral vascular calcifications. The calvarium is intact. Prior bilateral lens repair. The paranasal sinuses, mastoid air cells, and middle ear cavities are clear. IMPRESSION: No acute intracranial abnormality. ACT 112: Negative or not required by law. The above report was generated using voice recognition software. It may contain grammatical, syntax or spelling errors. Electronically signed by: Magno Haney M.D. 09/21/2021 12:51 PM Discharge Plan Visit Data Chief Complaint: Stroke/CVA Symptoms ED Provider: Ralf Johnson Discharge Problem: Weakness, Slurred speech, Stroke-like symptoms, Acute dehydration Patient Disposition: Admitted As Inpatient Condition: Fair Discharge Instructions Interventions: ED Discharge Assessment Last Done: 09/21/21 16:07
[2021-09-21] MEDS ORDERED: SODIUM CHLORIDE 0.9% 1000ML 1,000 ML IV SCH (11:30)
[2021-09-21 12:09] LABS: Basophils # (auto) 0.02 K/uL (0-0.2); Basophils % (auto) 0.3 %; Eosinophils # (auto) 0.25 K/uL (0-0.5); Eosinophils % (auto) 3.7 %; Hematocrit (blood only) 40.2 % (42-52); Hemoglobin 13.8 g/dL (14.0-18.0); Immature Granulocytes # (auto) 0.01 K/uL (0.00-0.02); Immature Granulocytes % (auto) 0.1 %; Lymphocytes # (auto) 1.59 K/uL (1.2-3.4); Lymphocytes % (auto) 23.8 %; Mean Corpuscular Hemoglobin 30.7 pg (25-34); Mean Corpuscular Hgb Conc 34.3 g/dL (32-36); Mean Corpuscular Volume 89.5 fL (80-100); Mean Platelet Volume 10.8 fL (7.4-10.4); Monocytes % (auto) 7.5 %; Neutrophils # (auto) 4.32 K/uL (1.4-6.5); Neutrophils % (auto) 64.6 %; Platelet Count 152 K/uL (130-400); RDW Standard Deviation 42.3 fL (36.4-46.3); Red Blood Count 4.49 M/uL (4.7-6.1); White Blood Count 6.69 K/uL (4.8-10.8)
--- NOTE | 2021-09-21 12:09 | XRay Report ---
XR chest 1V portable CLINICAL HISTORY: weakness COMPARISON STUDY: Chest radiograph and chest CT September 19, 2021. FINDINGS: Right subclavian Nezvku-g-Haqz is in place. There is no pneumothorax or pleural effusion. C ardiomediastinal silhouette is stable. No evidence for pulmonary edema. No consolidation to suggest p neumonia. No change in appearance of the chest. Multiple old left-sided rib fractures are incidentall y noted. IMPRESSION: No acute cardiopulmonary findings. ACT 112: Negative or not required by law. Electronically signed by: Gera Medina M.D. 09/21/2021 12:07 PM
[2021-09-21 12:23] LABS: INR 1.1 (0.9-1.1); Prothrombin Time 11.4 Seconds (9.0-12.0)
[2021-09-21 12:50] LABS: Alanine Aminotransferase 19 U/L (7-52); Albumin Globulin Ratio 1.5 (0.9-2); Albumin Level 3.5 gm/dl (3.4-5.0); Alkaline Phosphatase 70 U/L (34-104); Anion Gap 4 (3-11); Aspartate Aminotransferase 16 U/L (13-39); BUN Creatinine Ratio 36.4 (10-20); Bilirubin,Total 0.7 mg/dl (0.2-1.0); Blood Urea Nitrogen 28 mg/dl (6-23); Calcium 8.7 mg/dl (8.5-10.1); Carbon Dioxide 31 mmol/L (21-32); Chloride 105 mmol/L (98-107); Est GFR (African American) 103.6 ml/min; Est GFR (Non-African American) 89.4 ml/min; Globulin 2.3 gm/dl (2.5-4.0); Glucose 137 mg/dl (70-99(Fasting)); Magnesium 1.8 mg/dl (1.7-2.4); Potassium 3.2 mmol/L (3.5-5.1); Sodium 140 mmol/L (136-145); Total Protein 5.8 gm/dl (6.0-8.3)
--- NOTE | 2021-09-21 12:53 | CT Scan Report ---
CT head/brain wo con CLINICAL HISTORY: 75 years-old Male with confusion. Acutely altered mental status TECHNIQUE: Multiple axial CT images of the head were obtained without contrast. A dose lowering tech nique was utilized adhering to the principles of ALARA. CT DOSE: 614.27 mGy.cm COMPARISON: Head CT 09/19/2021 FINDINGS: No acute intracranial hemorrhage, midline shift, intracranial mass, hydrocephalus, territorial ischem ia or abnormal extra-axial collection. Age-related involutional changes. White matter hypodensities s uggestive of chronic microvascular ischemic disease. Numerous chronic appearing infarcts of the coron a radiata and basal ganglia. Cerebral vascular calcifications. The calvarium is intact. Prior bilater al lens repair. The paranasal sinuses, mastoid air cells, and middle ear cavities are clear. IMPRESSION: No acute intracranial abnormality. ACT 112: Negative or not required by law. The above report was generated using voice recognition software. It may contain grammatical, syntax o r spelling errors. Electronically signed by: Magno Haney M.D. 09/21/2021 12:51 PM
[2021-09-21] MEDS ORDERED: POTASSIUM CHLORIDE / WTR 10 MEQ/100 ML PLCT IV ONE (13:06)
[2021-09-21 13:07] LABS: Adenovirus PCR Not Detected (NotDetected); Bordetella parapertussis PCR Not Detected (NotDetected); Bordetella pertussis PCR Not Detected (NotDetected); Chlamydia pneumoniae PCR Not Detected (NotDetected); Coronavirus 229E PCR Not Detected (NotDetected); Coronavirus CoV-2 (COVID19)PCR Not Detected (NotDetected); Coronavirus HKU1 PCR Not Detected (NotDetected); Coronavirus NL63 PCR Not Detected (NotDetected); Coronavirus OC43PCR Not Detected (NotDetected); Human Metapneumovirus PCR Not Detected (NotDetected); Influenza A PCR Not Detected (NotDetected); Influenza B PCR Not Detected (NotDetected); Mycoplasma pneumoniae PCR Not Detected (NotDetected); Parainfluenza Virus 1 PCR Not Detected (NotDetected); Parainfluenza Virus 2 PCR Not Detected (NotDetected); Parainfluenza Virus 3 PCR Not Detected (NotDetected); Parainfluenza Virus 4 PCR Not Detected (NotDetected); Respiratory Syncytial VirusPCR Not Detected (NotDetected); Rhinovirus/Enterovirus PCR Not Detected (NotDetected)
[2021-09-21] MEDS ORDERED: SODIUM CHLORIDE 0.9% 1000ML 500 ML IV ONE (13:25)
--- NOTE | 2021-09-21 15:45 | Electrocardiogram Report ---
Test Reason : Blood Pressure : / mmHG Vent. Rate : 085 BPM Atrial Rate : 085 BPM P-R Int : 168 ms QRS Dur : 106 ms QT Int : 406 ms P-R-T Axes : 054 034 091 degrees QTc Int : 483 ms Normal sinus rhythm Prolonged QT Abnormal ECG When compared with ECG of 19-SEP-2021 18:42, Nonspecific T wave abnormality no longer evident in Inferior leads Nonspecific T wave abnormality, improved in Lateral leads QT has lengthened Confirmed by Marino Larsen ([id number]) on 09/21/2021 3:44:54 PM Referred By: Confirmed By:Ron Larsen
[2021-09-21] MEDS ORDERED: GLUCAGON FOR INJ 1 MG VIAL SQ PRN (16:25)
[2021-09-21] MEDS ORDERED: CARBOHYDRATES FOR HYPOGLYCEMIA PO PRN (16:25)
[2021-09-21] MEDS ORDERED: DEXTROSE 50% 50 ML SYRINGE IV PRN (16:25)
[2021-09-21] MEDS ORDERED: GLUCOSE 40% GEL 15 GM TUBE PO PRN (16:25)
[2021-09-21] MEDS ORDERED: IPRATROPIUM BROMIDE/ALBUTEROL respimat INH INH PRN (16:25)
[2021-09-21] MEDS ORDERED: POLYETHYLENE (MIRALAX) 17 GM PACK PO PRN (16:25)
[2021-09-21] MEDS ORDERED: ACETAMINOPHEN 325 MG TAB PO PRN (16:25)
[2021-09-21] MEDS ORDERED: ONDANSETRON INJ 2 MG/ML 2 ML VIAL IV PRN (16:25)
[2021-09-21] MEDS ORDERED: GLUCOSE 10 TABS/TUBE PO PRN (16:25)
[2021-09-21] MEDS ORDERED: ALBUTEROL HFA 8 GM INHALER INH PRN ×2 (16:25→16:49)
[2021-09-21] MEDS ORDERED: IPRATROPIUM BROMIDE HFA INHALER INH PRN (16:49)
[2021-09-21] MEDS: INSULIN ASPART PER UNIT SC SCH ×2 (16:54→21:39)
--- NOTE | 2021-09-21 16:59 | History & Physical Report ---
Date of Service September 21, 2021 Assessment & Plan (1) Syncope: Plan: Two episodes (one on 09/19 & one on 09/21). Both sound orthostatic/vasovagal to me from daughter's description. First one, he stood up, then passed out, the other, his BP was low, and he was trying to speak, but very lethargic and not speaking clearly. - Telemetry - Lower home losartan - PT/OT - MRI brain to r/o further CVA or MS event (2) Multiple sclerosis: Plan: Follows with Dr. Jackson. He was on Tysabri for many years and was recently switched to Ocrevus. - TEARER evaluation as daughter reports some trouble with swallowing - Seen by Dr. Jackson on 08/11 -> Daughter noted these issues with Dr. Jackson at this time. He decreased gabapentin to evening only and decreased Seroquel as well to evening only. There's some confusion here. His note indicates decreasing dose to 100 mg, but I don't see it decreased on med list. -> Hold gabapentin all together. Decrease Seroquel to 100 mg HS. (3) Bronchitis: Plan: Did have leukocytosis and bronchitis on CTA chest on 09/19. - Finish azithromycin x 2 doses (4) H/O: stroke: Plan: Prior CVA/TIA. Last episode appears to be a hospitalization in 03/2021 for slurred speech that neurology notes indicate was thought to be TIA. - Continue DAPT - Continue statin - MRI as above (5) Hypertension: Plan: As above, BP was actually low at home during syncope. - Lower home losartan dose (and switch to PM dosing) (6) Overactive bladder: Plan: On tolterodine for overactive bladder. - Continue medication, but monitor PVRs as it could lead to retention (7) Depression with anxiety: Plan: With some prior anger issues, though recent neurology notes do not indicate this is an ongoing issue. - Continue venlafaxine - Hold temazepam - Lower Seroquel dose as per prior neurology note (8) Diabetes: Plan: A1c was 5.6% in 07/2021. - Hold metformin - Sliding scale insulin (9) COPD (chronic obstructive pulmonary disease): Plan: No wheezing on exam today. - Continue home maintenance inhaler - Albuterol PRN (10) DVT prophylaxis: Plan: Lovenox 40 mg SQ daily DNR/DNI - Per patient with daughter confirming this is his long-standing wish. Admission and Anticipated Discharge Date Admission Date: September 21, 2021 History of Present Illness Primary Care Provider: Jude De La Rosa MD 75yo M w/ hx of MS and CVAs who presents with worsening weakness, confusion, and syncopal episode. The patient's daughter reports most of this history. He sleeps through the interview, wakes up, answers questions, then falls back to sleep. The patient's daughter reports that for at least the last month or so, his mobility has fallen. He had been walking behind his walker and moving well, but over the last month, he has become increasingly hunched over and been pushing his walker far out in front of him. Additionally, he has been not eating or drinking as much at home and started to have a slide in terms of his ability to function on his own. Despite this, he remains very independent and completes his ADLs on his own with modification such as just taking sponge baths at the sink instead of letting anyone help him with bathing. The daughter notes that he was started on metformin in early September in response to ongoing sugars in the 230 - 240 range. On 09/19, the patient passed out, and he was brought to the ER. Per the daughter, he was transitioning from the seat of his car to standing. His grandson was helping him, but he fully passed out without warning. In the ER, he was diagnosed with bronchitis and started on azithromycin. This morning, his daughter came to the kitchen to find him leaning over the table, almost falling over. He was trying to reach for some food. She helped him sit down and checked his blood pressure, which she reports as being in the 70/40 range for at least 10 - 15 minutes. During this time, he was speaking some, but not making sense or articulating well. She reports that when she arrived at the ER, his BP was normal, but that it was still low when EMS arrived. The patient wakes up with some verbal prompting. He denies all ROS, reporting he is fine. He then falls back to sleep shortly after that. Allergies Allergy/AdvReac Type Severity Reaction Status Date / Time latex Allergy Unknown unknown Verified 09/21/21 14:21 adhesive AdvReac Intermediate RASH UNDER Verified 09/21/21 14:21 TAPES Home Medications Medication Instructions Recorded Confirmed Type docusate sodium 100 mg capsule 100 mg PO HS 01/08/19 09/21/21 History (Stool Softener) polyethylene glycol 3350 17 17 gm PO DAILY PRN #119 gm 10/14/19 09/21/21 Rx gram/dose oral powder (Miralax) cholecalciferol (vitamin D3) 125 5,000 unit PO DAILY 09/01/20 09/21/21 History mcg (5,000 unit) capsule aspirin 81 mg tablet,delayed 81 mg PO QAM #90 tab 03/11/21 09/21/21 Rx release ocrelizumab 30 mg/mL intravenous 600 mg IV Q6MO #20 ml 05/12/21 09/21/21 Rx solution (Ocrevus) clopidogrel 75 mg tablet 75 mg PO DAILY #90 tab 05/25/21 09/21/21 Rx quetiapine 200 mg tablet 200 mg PO HS 90 Days #90 tab 05/25/21 09/21/21 Rx venlafaxine 150 mg 150 mg PO HS 90 Days #90 cap 05/25/21 09/21/21 Rx capsule,extended release 24 hr atorvastatin 40 mg tablet 40 mg PO QPM #90 tab 05/30/21 09/21/21 Rx albuterol sulfate 90 mcg/actuation 2 puff INHALATION Q4 PRN 09/19/21 09/21/21 History aerosol inhaler azithromycin 250 mg tablet 250 mg PO DAILY 4 Days #4 tab 09/19/21 09/21/21 Rx fluticasone 500 mcg-salmeterol 50 1 ea INHALATION BID 09/19/21 09/21/21 History mcg/dose blistr powdr for inhalation gabapentin 300 mg capsule 300 mg PO HS 09/19/21 09/21/21 History ipratropium 20 mcg-albuterol 100 2 puff INHALATION QID PRN 09/19/21 09/21/21 History mcg/actuation mist for inhalation (Combivent Respimat) lansoprazole 30 mg capsule,delayed 30 mg PO QAM 09/19/21 09/21/21 History release (Prevacid) losartan 50 mg tablet 50 mg PO QAM 09/19/21 09/21/21 History metformin 500 mg tablet,extended 500 mg PO QAM 09/19/21 09/21/21 History release 24 hr oqzqtlcwfcws-rqkyzyea-obssoy tablet 1 tab PO QAM 09/19/21 09/21/21 History temazepam 15 mg capsule 15 mg PO HS 09/19/21 09/21/21 History tolterodine 4 mg capsule,extended 4 mg PO QAM 09/19/21 09/21/21 History release 24 hr vitamin B complex 1 tab PO QAM 09/19/21 09/21/21 History Past Med/Surg History Medical History (Updated 09/21/21 @ 19:52 by Renny Russ MD) Acute foreign body of left ear canal Altered mental status COPD (chronic obstructive pulmonary disease) Depression with anxiety Eyebrow laceration Facial abrasion Fall Lumbar radiculopathy Multiple sclerosis Syncope Tinnitus, bilateral Surgical History History of colonoscopy History of open heart surgery S/P cataract surgery S/P tonsillectomy Family History Father , age 78 of cancer (uncertain type) Hypertension Hearing loss Colorectal cancer Mother , age 81 of cancer (uncertain type) Diabetes Hypertension Hearing loss Stroke Breast cancer Sister Hypertension Hearing loss Breast cancer Grandmother (Paternal) Hypertension Brother Hearing loss Social History Smoking Status: Former smoker Tobacco Type: Cigarettes packs per day: 2; Years Smoked: 30; Number of Years Since Quit: 30; Second Hand Exposure: No; Hx Alcohol Use: No Hx Substance Use: No Preferred Language: Turkmen Communication Ability: Effective Visual Impairment: Limited Hearing Ability: Use of Hearing Aid Flight Agent Required: No Beliefs That Will Affect Care: None marital status: / Current Living Situation: Family Current Living Situation Comment: lives with grandson current occupational status: retired and disabled current occupation: Retired maintenance department @ [employer] How many Children do You have: 3 Feels Safe at Home: Yes Seatbelt Use: never Sunscreen Use: No Assistive Devices: Denture - Upper and Walker Review of Systems Review of Systems: All systems reviewed & are unremarkable except as noted in HPI & below Physical Exam Constitutional: WD/WN, vitals as above + lethargic Eyes: EOM intact bilaterally; no conjunctival abnormality ENMT: external ear and nose normal, oropharynx normal Neck: trachea midline, no thyromegaly normal visual inspection Respiratory: normal respiratory effort, lungs clear to auscultation no respiratory distress Cardiovascular: RRR, no murmur, no edema Gastrointestinal (Abdomen): Inspection/Auscultation: abdomen normal to inspection; abdomen not distended Musculoskeletal: no cyanosis or clubbing, extremities motor strength 5/5 Skin: no rashes, warm and dry Neurologic: moves all extremities and awake Psychiatric: Orientation: alert, oriented to person and cooperative Results & Data Results & Data ([facility]) Vital Signs (Past 12 Hours) Vital Signs Temp Pulse Pulse Resp BP BP Pulse Ox 09/21/21 16:00 66 16 164/93 H 98 09/21/21 14:00 67 16 159/84 H 97 09/21/21 12:50 64 16 159/85 H 99 09/21/21 12:00 71 14 145/80 H 97 09/21/21 11:45 77 18 95 09/21/21 11:44 79 19 115/74 95 09/21/21 11:30 80 17 94 09/21/21 11:20 99 09/21/21 11:15 84 19 96 09/21/21 11:05 36.7 C 87 14 127/73 99 Code Status & VTE Plan VTE Prophylaxis Plan VTE Prophylaxis will be ordered: Yes PG Care Time/CCT Total # of Minutes Spent Total Time Spent with Patient: Total time spent is greater than 50% in coordination of care (as documented) at patient's floor/unit and/or counseling patient: Coding Level of Care Code 12152 Initial Inpt Care Lvl 3 Diagnoses Syncope R55 Syncope type: unspecified Bronchitis J40 H/O: stroke Z86.73 Hypertension I10 Hypertension type: essential hypertension Multiple sclerosis G35 Depression with anxiety F41.8 Diabetes E11.9 COPD (chronic obstructive pulmonary disease) J44.9 COPD type: unspecified COPD DVT prophylaxis Z29.9 Overactive bladder N32.81 (1) Syncope Syncope type: unspecified Qualified Code(s): R55 - Syncope and collapse (2) COPD (chronic obstructive pulmonary disease) COPD type: unspecified COPD Qualified Code(s): J44.9 - Chronic obstructive pulmonary disease, unspecified (3) Hypertension Hypertension type: essential hypertension Qualified Code(s): I10 - Essential (primary) hypertension
[2021-09-21] MEDS ORDERED: QUEtiapine FUMARATE 200 MG TAB PO SCH (21:00)
[2021-09-21] MEDS: DOCUSATE SODIUM 100 MG CAP PO SCH (21:38)
[2021-09-21] MEDS: ATORVASTATIN 40 MG TAB PO SCH (21:38)
[2021-09-21] MEDS: VENLAFAXINE HCL XR 150 MG CAPXR PO SCH (21:39)
[2021-09-21] MEDS: QUEtiapine FUMARATE 100 MG TABLET PO SCH (21:40)
[2021-09-21] MEDS ORDERED: LORazepam 2 MG/1 ML VIAL IV PRN (22:21)
[2021-09-22 06:57] LABS: Appearance Urine Clear (Clear); Bilirubin Urine Negative (Negative); Blood Urine Negative (Negative); Color Urine Yellow; Glucose Urine UA Negative (Negative); Ketones Urine Negative (Negative); Leukocyte Esterase Urine Negative (Negative); Nitrite Urine Negative (Negative); Protein Urine Negative (Negative); Specific Gravity Urine 1.019 (1.000-1.030); Urobilinogen Urine Negative (Negative); pH Urine 6.5 (4.5-7.5)
--- NOTE | 2021-09-22 07:08 | Communication Note ---
Date of Service: September 22, 2021 post void residual 200
[2021-09-22 07:46] LABS: Hemoglobin 13.9 g/dL (14.0-18.0); Mean Corpuscular Hemoglobin 31.2 pg (25-34); Mean Corpuscular Hgb Conc 34.8 g/dL (32-36); Mean Corpuscular Volume 89.9 fL (80-100); Mean Platelet Volume 11.1 fL (7.4-10.4); Platelet Count 153 K/uL (130-400); RDW Coefficient of Variation 12.9 % (11.5-14.5); RDW Standard Deviation 42.4 fL (36.4-46.3); Red Blood Count 4.45 M/uL (4.7-6.1); White Blood Count 8.22 K/uL (4.8-10.8)
[2021-09-22] MEDS: AZITHROMYCIN 250 MG TAB PO SCH (08:04)
[2021-09-22] MEDS: CLOPIDOGREL BISULFATE 75 MG TAB PO SCH (08:04)
[2021-09-22] MEDS: ASPIRIN 81 MG ECTAB PO SCH (08:04)
[2021-09-22] MEDS: TOLTERODINE TARTRATE LA 4 MG CAPCR PO SCH (08:04)
[2021-09-22] MEDS: FLUTICASONE/VILANTEROL 200/25MCG 14 PUFFS/INHALER INH SCH (08:05)
[2021-09-22] MEDS: INSULIN ASPART PER UNIT SC SCH ×4 (08:07→22:11)
[2021-09-22] MEDS: ENOXAPARIN INJ 40 MG/0.4 ML SYR SQ SCH (08:07)
[2021-09-22] MEDS: PANTOprazole 40 MG TAB PO SCH (08:08)
[2021-09-22 08:40] LABS: BUN Creatinine Ratio 25.4 (10-20); Calcium 8.3 mg/dl (8.5-10.1); Creatinine Clr Calc Pharmacy 106.2 ml/min; Est GFR (African American) 107.1 ml/min; Est GFR (Non-African American) 92.4 ml/min; Magnesium 1.9 mg/dl (1.7-2.4); Potassium 3.4 mmol/L (3.5-5.1)
--- NOTE | 2021-09-22 09:22 | Magnetic Resonance Report ---
MRI OF THE BRAIN WITHOUT CONTRAST CLINICAL HISTORY: Weakness. Fatigue. Falls. CVA vs MS. COMPARISON STUDY: MRI of the brain March 09, 2021. Head CT September 21, 2021. TECHNIQUE: Utilizing a 1.5 Aleyda magnet and dedicated coil, multiplanar, multiecho imaging of the bra in was performed without IV contrast. Thin cut FLAIR imaging was performed. FINDINGS: There are no foci of restricted diffusion to suggest acute infarct. No acute intracranial h emorrhage, midline shift or mass effect is present. Ventricular system is stable. Basal cisterns are patent. There are nodular axial collections. Moderate to marked atrophy is again noted. No intracrani al masses are identified on this unenhanced exam. Flow-voids for the major intracranial vessels are p resent. Note is again made of numerous old lacunar infarcts within the bilateral basal ganglia, thala mi and periventricular white matter. These are similar to prior MRI. Periventricular white matter T2 hyperintensity is also unchanged and could reflect previous demyelination. Small vessel disease could appear similar. The appearance of the brain is unchanged. Calvarial signal is within normal limits. Orbits are unremarkable. There is no evidence for sinusitis. Trace fluid within the right mastoid air cells is present. IMPRESSION: 1. No acute intracranial findings. 2. Numerous old lacunar infarcts within the bilateral basal ganglia, thalami and periventricular whit e matter. 3. No change in appearance of the brain since MRI of March 19, 2021. 4. Periventricular white matter T2 hyperintense foci which are similar to prior exam. These could ref lect previous sites of demyelination. Small vessel disease could appear similar. ACT 112: Negative or not required by law. Electronically signed by: Gera Medina M.D. 09/22/2021 9:20 AM
--- NOTE | 2021-09-22 20:34 | Hospitalist Progress Note ---
Date of Service September 22, 2021 Assessment & Plan (1) Syncope: Plan: Two episodes (one on 09/19 & one on 09/21). Both sound orthostatic/vasovagal to me from daughter's description. First one, he stood up, then passed out, the other, his BP was low, and he was trying to speak, but very lethargic and not speaking clearly. - Telemetry - Lower home losartan -goal is to maintain bP slightly higher than normal. -concerned over orthostatic hypoertension or overtreatment of Blood pressure. - PT/OT eval s recommending rehab. - MRI brain to r/o further CVA or MS event (2) Multiple sclerosis: Plan: Follows with Dr. Jackson. He was on Tysabri for many years and was recently switched to Ocrevus. - SALES TEAM MEMBER evaluation as daughter reports some trouble with swallowing - Seen by Dr. Jackson on 08/11 -> Daughter noted these issues with Dr. Jackson at this time. He decreased gabapentin to evening only and decreased Seroquel as well to evening only. There's some confusion here. His note indicates decreasing dose to 100 mg, but I don't see it decreased on med list. -> Hold gabapentin all together. Decrease Seroquel to 100 mg HS. (3) Bronchitis: Plan: Did have leukocytosis and bronchitis on CTA chest on 09/19. - Finish azithromycin x 2 doses (4) H/O: stroke: Plan: Prior CVA/TIA. Last episode appears to be a hospitalization in 03/2021 for slurred speech that neurology notes indicate was thought to be TIA. - Continue DAPT - Continue statin - MRI as above (5) Hypertension: Plan: As above, BP was actually low at home during syncope. - Lower home losartan dose (and switch to PM dosing) (6) Overactive bladder: Plan: On tolterodine for overactive bladder. - Continue medication, but monitor PVRs as it could lead to retention (7) Depression with anxiety: Plan: With some prior anger issues, though recent neurology notes do not indicate this is an ongoing issue. - Continue venlafaxine - Hold temazepam - Lower Seroquel dose as per prior neurology note (8) Diabetes: Plan: A1c was 5.6% in 07/2021. - Hold metformin - Sliding scale insulin (9) COPD (chronic obstructive pulmonary disease): Plan: No wheezing on exam today. - Continue home maintenance inhaler - Albuterol PRN (10) DVT prophylaxis: Plan: Lovenox 40 mg SQ daily DNR/DNI - Per patient with daughter confirming this is his long-standing wish. Admission and Anticipated Discharge Date Admission Date: September 21, 2021 Subjective Patient reports feeling well. Patient has no new complaints. updated family. Review of Systems Review of Systems: All systems reviewed & are unremarkable except as noted in HPI & below Physical Exam Physical Exam: Constitutional:J WD/WN, vitals as a toby + lethargic Eyes: EOM intact bilater ally; no conjuncti neelam abnormality ENMT: external ear and n ose normal, oropha rynx normal Neck: trachea midline, n o thyromegaly nor mal visual inspect ion Respiratory: normal respiratory effort, lungs chago ar to auscultation no respiratory d istress Cardiovascular:J RRR, no murmur, no edema Gastrointestinal ( Abdomen): Inspection/Auscult ation: abdomen nor mal to inspection; abdomen not diste nded Musculoskeletal: no cyanosis or clu bbing, extremities motor strength 5/ 5 Skin: no rashes, warm an d dry Neurologic: moves all extremit ies and awake Psychiatric: Orientation: alert , oriented to pers on and cooperative Results & Data Results & Data ([facility]) Vital Signs (Past 12 Hours) Vital Signs Temp Pulse Pulse Resp BP Pulse Ox 09/22/21 16:17 74 09/22/21 15:09 36.7 C 68 19 166/83 H 94 09/22/21 10:50 36.6 C 80 19 152/88 H 94 PG Care Time/CCT Total # of Minutes Spent Total Time Spent with Patient: Total time spent is greater than 50% in coordination of care (as documented) at patient's floor/unit and/or counseling patient: Coding Level of Care Code 65880 Subseq Hosp Care Lvl 2 Diagnoses Syncope R55 Syncope type: unspecified Multiple sclerosis G35 Bronchitis J40 H/O: stroke Z86.73 Hypertension I10 Hypertension type: essential hypertension Overactive bladder N32.81 Depression with anxiety F41.8 Diabetes E11.9 COPD (chronic obstructive pulmonary disease) J44.9 COPD type: unspecified COPD DVT prophylaxis Z29.9 (1) Syncope Syncope type: unspecified Qualified Code(s): R55 - Syncope and collapse (2) COPD (chronic obstructive pulmonary disease) COPD type: unspecified COPD Qualified Code(s): J44.9 - Chronic obstructive pulmonary disease, unspecified (3) Hypertension Hypertension type: essential hypertension Qualified Code(s): I10 - Essential (primary) hypertension
[2021-09-22] MEDS ORDERED: LOSARTAN POTASSIUM 25 MG TAB PO SCH (21:00)
[2021-09-22] MEDS: QUEtiapine FUMARATE 100 MG TABLET PO SCH (22:12)
[2021-09-22] MEDS: VENLAFAXINE HCL XR 150 MG CAPXR PO SCH (22:12)
[2021-09-22] MEDS: ATORVASTATIN 40 MG TAB PO SCH (22:13)
[2021-09-22] MEDS: DOCUSATE SODIUM 100 MG CAP PO SCH (22:13)
[2021-09-23 08:00] LABS: Hematocrit (blood only) 40.1 % (42-52); Hemoglobin 14.4 g/dL (14.0-18.0); Mean Corpuscular Hemoglobin 31.2 pg (25-34); Mean Corpuscular Hgb Conc 35.9 g/dL (32-36); Mean Corpuscular Volume 86.8 fL (80-100); Mean Platelet Volume 10.6 fL (7.4-10.4); Platelet Count 164 K/uL (130-400); RDW Coefficient of Variation 12.8 % (11.5-14.5); RDW Standard Deviation 40.5 fL (36.4-46.3); Red Blood Count 4.62 M/uL (4.7-6.1); White Blood Count 6.11 K/uL (4.8-10.8)
[2021-09-23] MEDS: INSULIN ASPART PER UNIT SC SCH ×2 (08:16→12:21)
[2021-09-23] MEDS: FLUTICASONE/VILANTEROL 200/25MCG 14 PUFFS/INHALER INH SCH (08:21)
[2021-09-23] MEDS: TOLTERODINE TARTRATE LA 4 MG CAPCR PO SCH (08:22)
[2021-09-23] MEDS: PANTOprazole 40 MG TAB PO SCH (08:22)
[2021-09-23] MEDS: CLOPIDOGREL BISULFATE 75 MG TAB PO SCH (08:22)
[2021-09-23] MEDS: AZITHROMYCIN 250 MG TAB PO SCH (08:22)
[2021-09-23] MEDS: ASPIRIN 81 MG ECTAB PO SCH (08:22)
[2021-09-23] MEDS: ENOXAPARIN INJ 40 MG/0.4 ML SYR SQ SCH (08:23)
[2021-09-23 08:37] LABS: BUN Creatinine Ratio 18.6 (10-20); Calcium 8.5 mg/dl (8.5-10.1); Creatinine Clr Calc Pharmacy 107.7 ml/min; Est GFR (African American) 107.8 ml/min; Potassium 3.5 mmol/L (3.5-5.1)
[2021-09-23] MEDS ORDERED: HEPARIN 100 UNIT/ML 5ML FLUSH FLUSH PRN (14:25)
--- NOTE | 2021-09-24 14:48 | Discharge Summary ---
Date of Service September 23, 2021 Admission HPI Per Admitting Provider 75yo M w/ hx of MS and CVAs who presents with worsening weakness, confusion, and syncopal episode. The patient's daughter reports most of this history. He sleeps through the interview, wakes up, answers questions, then falls back to sleep. The patient's daughter reports that for at least the last month or so, his mobility has fallen. He had been walking behind his walker and moving well, but over the last month, he has become increasingly hunched over and been pushing his walker far out in front of him. Additionally, he has been not eating or drinking as much at home and started to have a slide in terms of his ability to function on his own. Despite this, he remains very independent and completes his ADLs on his own with modification such as just taking sponge baths at the sink instead of letting anyone help him with bathing. The daughter notes that he was started on metformin in early September in response to ongoing sugars in the 230 - 240 range. On 09/19, the patient passed out, and he was brought to the ER. Per the daughter, he was transitioning from the seat of his car to standing. His grandson was helping him, but he fully passed out without warning. In the ER, he was diagnosed with bronchitis and started on azithromycin. This morning, his daughter came to the kitchen to find him leaning over the table, almost falling over. He was trying to reach for some food. She helped him sit down and checked his blood pressure, which she reports as being in the 70/40 range for at least 10 - 15 minutes. During this time, he was speaking some, but not making sense or articulating well. She reports that when she arrived at the ER, his BP was normal, but that it was still low when EMS arrived. The patient wakes up with some verbal prompting. He denies all ROS, reporting he is fine. He then falls back to sleep shortly after that. Principal Diagnosis syncope Discharge Exam \Constitutional: WD/WN, vitals as above Eyes: EOM intact bilaterally; no conjunctival abnormality ENMT: external ear and nose normal, oropharynx normal Neck: trachea midline, no thyromegaly normal visual inspection Respiratory: normal respiratory effort, lungs clear to auscultation no respiratory distress Cardiovascular: RRR, no murmur, no edema Gastrointestinal (Abdomen): Inspection/Auscultation: abdomen normal to inspection; abdomen not distended Musculoskeletal: no cyanosis or clubbing, extremities motor strength 5/5 Skin: no rashes, warm and dry Neurologic: moves all extremities and awake Psychiatric: Orientation: alert, oriented to person and cooperative Discharge Data Allergies Allergy/AdvReac Type Severity Reaction Status Date / Time latex Allergy Unknown unknown Verified 09/21/21 14:21 adhesive AdvReac Intermediate RASH UNDER Verified 09/21/21 14:21 TAPES Consultations 09/21/21 13:30 ED Decision to Admit Stat Ordered Studies 09/21/21 11:20 CT head/brain wo con Stat 09/21/21 19:57 MR brain wo con Routine Hospital Course (1) Syncope: Two episodes (one on 09/19 & one on 09/21). Both sound orthostatic/vasovagal to me from daughter's description. First one, he stood up, then passed out, the other, his BP was low, and he was trying to speak, but very lethargic and not speaking clearly. - Telemetry - Lowered home losartan -goal is to maintain bP slightly higher than normal. Once his blood pressure improved, patient was no longer symptomatic. -monitored over course of over 36h - PT eval states ok to go home. will discharge on home health. - MRI brain to r/o further CVA or MS event Could also be secondary to temazepam and gabapentin. These medications will be held. If required may consider restarting gabapentin at a lower dose, will defer to PCP. (2) Multiple sclerosis: Follows with Dr. Jackson. He was on Tysabri for many years and was recently switched to Ocrevus. - FINISHING MACHINE TENDER evaluation as daughter reports some trouble with swallowing - Seen by Dr. Jackson on 08/11 -> Daughter noted these issues with Dr. Jackson at this time. He decreased gabapentin to evening only and decreased Seroquel as well to evening only. There's some confusion here. His note indicates decreasing dose to 100 mg, but I don't see it decreased on med list. -> Hold gabapentin all together. Recommend decreasing seroquel to 100 mg PO HS. will defer to PCP. (3) Bronchitis: Did have leukocytosis and bronchitis on CTA chest on 09/19. - Finish azithromycin x 2 doses (4) H/O: stroke: Prior CVA/TIA. Last episode appears to be a hospitalization in 03/2021 for slurred speech that neurology notes indicate was thought to be TIA. - Continue DAPT - Continue statin - MRI as above (5) Hypertension: As above, BP was actually low at home during syncope. - Lower home losartan dose (and switch to PM dosing) (6) Overactive bladder: On tolterodine for overactive bladder. - Continue medication, but monitor PVRs as it could lead to retention (7) Depression with anxiety: With some prior anger issues, though recent neurology notes do not indicate this is an ongoing issue. - Continue venlafaxine - Hold temazepam and gabapentin - Lower Seroquel dose as per prior neurology note (8) Diabetes: A1c was 5.6% in 07/2021. - Hold metformin - Sliding scale insulin (9) COPD (chronic obstructive pulmonary disease): No wheezing on exam today. - Continue home maintenance inhaler - Albuterol PRN (10) DVT prophylaxis: Lovenox 40 mg SQ daily DNR/DNI - Per patient with daughter confirming this is his long-standing wish. Total Time Total Time Spent Total Time Spent (In Minutes): 35 Discharge Plan Discharge Items Patient Disposition: Home - Self-Care Reason For Visit: SYNCOPE, LOW BLOOD PRESSURE Discharge Diagnosis: syncope Condition on Discharge: Fair Activity: Resume your previous activity Lifting: None Non-emergency contact: Primary Care Provider Call non-emergency contact if: you have any medication questions Follow-up/Referrals: Jude De La Rosa MD [Primary Care Provider] - 09/26/21 10:30 am (With Yessi Leija) Diet: Carb Consistent or DM2 Diet Comment: minced and moist Addtl Attending Provider Instructions: You have been hospitalized for an acute medical problem. During your stay at [facility], we have made an effort to correct the problem that brought you to the hospital while keeping you as comfortable as possible. Me dications were used to bring your condition under control and your discharge instructions will include directions for any medications you should take after leaving the hospital. Please make sure you see your Primary Care Provider as part of your follow up plan. Your episode of passing out likely occurred from low blood pressure. will recommend cutting back on your blood pressure medication. Holding temazepam and gabapentin as this may cause confusion. If needed, would consider restarting gabapentin at a lower dose but will defer to PCP. Please see PCP in 1-2 weeks. Pending Studies at Discharge: No Stand-Alone Forms: My [facility], Smoking Cessation Medications and DC Order Prescriptions: New losartan 25 mg Tablet 25 mg PO HS Qty: 30 RF: 0 Continued polyethylene glycol 3350 [Miralax] 17 gram/dose powder 17 gm PO DAILY PRN (Reason: constipation) Qty: 119 RF: 2 Ocrevus 30 mg/mL solution 600 mg IV Q6MO Qty: 20 RF: 1 atorvastatin 40 mg tablet 40 mg PO QPM Qty: 90 RF: 3 cholecalciferol (vitamin D3) 125 mcg (5,000 unit) capsule 5,000 unit PO DAILY RF: 0 quetiapine 200 mg tablet 200 mg PO HS 90 Days Qty: 90 RF: 3 venlafaxine 150 mg capsule,extended release 24hr 150 mg PO HS 90 Days Qty: 90 RF: 3 clopidogrel 75 mg tablet 75 mg PO DAILY Qty: 90 RF: 3 docusate sodium [Stool Softener] 100 mg Capsule 100 mg PO HS RF: 0 aspirin 81 mg Tablet,Delayed Release (Dr/Ec) 81 mg PO QAM Qty: 90 RF: 0 tolterodine 4 mg capsule,extended release 24hr 4 mg PO QAM RF: 0 lansoprazole [Prevacid] 30 mg capsule,delayed release(DR/EC) 30 mg PO QAM RF: 0 metformin 500 mg tablet extended release 24 hr 500 mg PO QAM RF: 0 Combivent Respimat 20-100 mcg/actuation mist 2 puff inhalation QID PRN (Reason: Shortness Of Breath Or Wheezing) RF: 0 vitamin B complex Tablet 1 tab PO QAM RF: 0 vqssnofavieg-wepeybdm-zsbpes Tablet 1 tab PO QAM RF: 0 fluticasone propion-salmeterol 500-50 mcg/dose blister with device 1 ea INHALATION BID RF: 0 albuterol sulfate 90 mcg/actuation HFA aerosol inhaler 2 puff INHALATION Q4 PRN (Reason: Shortness Of Breath Or Wheezing) RF: 0 Discontinued losartan 50 mg tablet 50 mg PO QAM RF: 0 temazepam 15 mg capsule 15 mg PO HS RF: 0 gabapentin 300 mg capsule 300 mg PO HS RF: 0 Discharge Orders: Discharge Order (Routine); Ordered 09/23/21 Ordered By: Marco Antonio Martinez Admission Data Admit Date/Time: 09/21/21 14:40 Attending Provider: Marco Antonio Martinez Admit Provider: Renny Russ Primary Care Provider: Jude De La Rosa Other Providers: Renny Russ ; [facility],Health ; [place],Care ; [facility] Other Interventions: Discharge Summary Assessment (RN) Last Done: 09/23/21 15:57 Coding Level of Care Code D/C DAY MANAGEMENT >30 MINS Diagnoses Syncope R55 Syncope type: unspecified Multiple sclerosis G35 Bronchitis J40 H/O: stroke Z86.73 Hypertension I10 Hypertension type: essential hypertension Overactive bladder N32.81 Depression with anxiety F41.8 Diabetes E11.9 COPD (chronic obstructive pulmonary disease) J44.9 COPD type: unspecified COPD DVT prophylaxis Z29.9
== END 2021-09-23 16:52 | disposition home or self-care (01) ==
LOC: ED 10:59 → 2N 14:40 → INTOOBSV 14:40 → SUATTDRO 14:40 → 2N 16:07

== ENCOUNTER 2022-03-15 16:37 | Inpatient (IN) ==
[2022-03-15 18:11] LABS: Hematocrit (blood only) 40.1 % (40.1-51.0); Hemoglobin 14.1 g/dl (14.0-18.0); Mean Corpuscular Hemoglobin 31.1 pg (25.0-34.0); Mean Corpuscular Hgb Conc 35.2 g/dL (32.0-36.0); Mean Corpuscular Volume 88.3 fL (80.0-100.0); Mean Platelet Volume 10.4 fL (9.4-12.4); Platelet Count 148 K/uL (130-400); RDW Coefficient of Variation 12.9 % (11.5-14.5); RDW Standard Deviation 41.8 fL (36.4-46.3); Red Blood Count 4.54 M/uL (4.63-6.08); White Blood Count 7.32 K/ul (4.8-10.8)
[2022-03-15 18:29] LABS: Albumin Globulin Ratio 1.7 (0.9-2); Albumin Level 3.8 gm/dl (3.4-5.0); BUN Creatinine Ratio 28.9 (10-20); Bilirubin,Total 1.1 mg/dl (0.2-1.0); Calcium 8.4 mg/dl (8.5-10.1); Creatinine Clr Calc Pharmacy 92.2 ml/min; Est GFR (African American) 103.4 ml/min; Est GFR (Non-African American) 89.2 ml/min; Globulin 2.3 gm/dl (2.5-4.0); Magnesium 1.9 mg/dl (1.7-2.4); Potassium 3.4 mmol/L (3.5-5.1); Total Protein 6.1 gm/dl (6.0-8.3)
--- NOTE | 2022-03-15 18:51 | History & Physical Report ---
Date of Service March 15, 2022 Assessment & Plan (1) Acute CVA (cerebrovascular accident): Plan: Hammad is a 76 year old male w/ PmHx Multiple sclerosis, TIA (last 03/2021), Depression and anxiety, lubar radiculopathy admitted for new CVA not requiring thrombolytics. Acute CVA/Hx of CVA: -MRI brain w/ evidence of acute punctate lacunar infarct within the R caudate head. -MRI Cervical Spine w/o acute changes. -No focal neuro signs on physical exam. -A1c 5.5 and lipid panel WNL from 11/28/21. -Ordered repeat lipid panel, A1c for AM. Ordered repeat echo, last performed 03/10/21. -Consult Neurology for further recommendations. -Continue ASA 81mg, Plavix 75mg for now, will await further recs from neuro. -Fall precautions in place, PT/OT eval pending. Multiple Sclerosis: -MRI of cervical spine and brain w/o evidence of worsening of demyelination or new lesions. -On ocrelizumab outpatient. -Most likely contributing to worsening dysphagia and gait. -Appreciate neuro recs. HTN: -On losartan 25mg at home. -BP has been 140's-150's systolic, 70's-90's diastolic. -Holding losartan with new stroke. Gait disturbance: -Worsening over past few months and more so over past week. -?MS vs stroke related. -Plan as above. COPD: -Continue home albuterol and ipatropium/albuterol PRN. Depression/anxiety: -Continue home venlafaxine. GERD: -Continue home lansoprazole. Overactive bladder: -Continue home tolterodine. DVT prophylaxis: ASA 81mg, Plavix 75mg, SCDs F/E/N/GI: Speech eval pending, most likely soft easy to chew diet. Code Status: DNR/DNI Dispo: Med/Surg Telemetry. (2) Gait disturbance: (3) Hypertension: (4) COPD (chronic obstructive pulmonary disease): (5) Multiple sclerosis: (6) Depression with anxiety: (7) Gastro-esophageal reflux: (8) Hyperglycemia: (9) H/O: stroke: (10) Esophageal dysmotility: History of Present Illness Chief Complaint: Acute stroke on MRI outpatient. Primary Care Provider: Jude De La Rosa MD Hammad is a 76 year old male w/ PmHx of TIA (last March of 2021), Multiple Sclerosis, COPD, depression and anxiety, lumbar radiculopathy who presented to the ER for discovery of new stroke on MRI earlier today. Patient is with his daughter who says the patient has had several changes over the past 2 months. These include increased difficulty with gait, worsening of tremor in his upper extremities, and worsening of short and care home memory. Patient usually uses an electric scooter to ambulate outside, uses a walker to ambulate short distances. He wants to use a cane however this makes his family nervous since he is more unsteady with the cane. He's also had increased frequency of falls over the past few months, the last one was a few days prior witnessed by his son. He went to his neurology office over concern of these new findings and it was determined they would get an MRI to check for any progression of his MS or the possibility of new stroke. He had an MRI of the neck and head/brain on 03/15 and a new acute punctate lacunar infarct within the R caudate head was visualized. He was told to go to the ER for further workup and evaluation. His last stroke was March of last year, he has seen PT/OT in the past for. He also has difficulty with swallowing which his daughter in the room says is from the MS and he usually takes to soft liquidy food and stays away from dry foods. Otherwise patient does not endorse any new symptoms of focal weakness, numbness/tingling, syncope, head trauma, denies fevers, chills, shortness of breath, chest pain, palpitations, constipation. His daughter says he's had darker urine, may not be well hydrated. Allergies Allergy/AdvReac Type Severity Reaction Status Date / Time latex Allergy Unknown unknown Verified 03/15/22 18:03 adhesive AdvReac Intermediate RASH UNDER Verified 03/15/22 18:03 TAPES Home Medications Medication Instructions Recorded Confirmed Type docusate sodium 100 mg capsule 100 mg PO HS 01/08/19 03/15/22 History (Stool Softener) polyethylene glycol 3350 17 17 gm PO DAILY PRN constipation 10/14/19 03/15/22 Rx gram/dose oral powder (Miralax) #119 grams cholecalciferol (vitamin D3) 125 5,000 unit PO DAILY 09/01/20 03/15/22 History mcg (5,000 unit) capsule aspirin 81 mg tablet,delayed 81 mg PO QAM #90 tabs 03/11/21 03/15/22 Rx release venlafaxine 150 mg 150 mg PO HS 90 days #90 caps 05/25/21 03/15/22 Rx capsule,extended release 24 hr atorvastatin 40 mg tablet 40 mg PO QPM #90 tabs 05/30/21 03/15/22 Rx albuterol sulfate 90 mcg/actuation 2 puff inhalation Q4 PRN Shortness 09/19/21 03/15/22 History aerosol inhaler Of Breath Or Wheezing fluticasone 500 mcg-salmeterol 50 1 ea inhalation BID 09/19/21 03/15/22 History mcg/dose blistr powdr for inhalation ipratropium 20 mcg-albuterol 100 2 puff inhalation QID PRN 09/19/21 03/15/22 History mcg/actuation mist for inhalation Shortness Of Breath Or Wheezing (Combivent Respimat) lansoprazole 30 mg capsule,delayed 30 mg PO QAM 09/19/21 03/15/22 History release (Prevacid) fjnydzjliivl-ctcsvuif-lzrzhk tablet 1 tab PO QAM 09/19/21 03/15/22 History vitamin B complex 1 tab PO QAM 09/19/21 03/15/22 History lancets 33 gauge (OneTouch Delashu #100 ea 09/27/21 02/20/22 Rx Lancets) blood sugar diagnostic (OneTouch #100 ea 09/29/21 02/20/22 Rx Ultra Test strips) blood-glucose meter (OneTouch #1 ea 09/29/21 02/20/22 Rx Ultra2 Meter kit) quetiapine 100 mg tablet 100 mg PO HS 90 days #90 tabs 09/29/21 03/15/22 Rx losartan 25 mg tablet 25 mg PO HS #90 tabs 10/06/21 03/15/22 Rx ocrelizumab 30 mg/mL intravenous 600 mg (20 mL) IV .COMPLEX #20 mL 11/02/21 03/15/22 Rx solution (Ocrevus) clopidogrel 75 mg tablet 75 mg PO DAILY #90 tabs 11/22/21 03/15/22 Rx tolterodine 4 mg capsule,extended 4 mg PO QAM bladder control #30 11/22/21 03/15/22 Rx release 24 hr caps metformin 500 mg tablet,extended 500 mg PO QAM #90 tabs 11/28/21 03/15/22 Rx release 24 hr melatonin 3 mg capsule 3 mg PO HS PRN Sleep 02/20/22 03/15/22 History diazepam 5 mg tablet (Valium) 5 mg PO .COMPLEX #2 tabs 02/21/22 03/15/22 Rx Past Med/Surg History Medical History (Updated 02/27/22 @ 18:59 by Danay Espinal PA-C) Acute foreign body of left ear canal Altered mental status COPD (chronic obstructive pulmonary disease) Depression with anxiety Eyebrow laceration Facial abrasion Fall Lumbar radiculopathy Multiple sclerosis Syncope Tinnitus, bilateral Surgical History History of colonoscopy History of open heart surgery S/P cataract surgery S/P tonsillectomy Family History Father , age 78 of cancer (uncertain type) Hypertension Hearing loss Colorectal cancer Mother , age 81 of cancer (uncertain type) Diabetes Hypertension Hearing loss Stroke Breast cancer Sister Hypertension Hearing loss Breast cancer Grandmother (Paternal) Hypertension Brother Hearing loss Social History Smoking Status: Former smoker Tobacco Type: Cigarettes packs per day: 2; Years Smoked: 30; Number of Years Since Quit: 30; Second Hand Exposure: No; Hx Alcohol Use: No Hx Substance Use: No Preferred Language: Guinean Communication Ability: Effective Visual Impairment: Limited Hearing Ability: Use of Hearing Aid Biomedical Engineering Technologist Required: No Beliefs That Will Affect Care: None marital status: / Current Living Situation: Family Current Living Situation Comment: lives with grandson current occupational status: retired and disabled current occupation: Retired maintenance department @ [employer] How many Children do You have: 3 Feels Safe at Home: Yes Seatbelt Use: never Sunscreen Use: No Assistive Devices: Glasses, Walker and Wheelchair Review of Systems Review of Systems: As per HPI. Physical Exam Constitutional: WD/WN, vitals as above Eyes: PERRL, conjunctivae normal, anicteric sclerae ENMT: external ear and nose normal, oropharynx normal Skin anterior to the R ear with scabbing (daughter says he picks at this area). Neck: normal visual inspection Respiratory: normal respiratory effort, lungs clear to auscultation Cardiovascular: S1 and S2, III/ holosystolic murmur most prominent at the left lower sternal border. Gastrointestinal (Abdomen): normal bowel sounds, soft, nontender, no hepatosplenomegaly Musculoskeletal: no cyanosis or clubbing, extremities motor strength 5/5 Skin: Port in place on R upper chest for ocrelizumab infusions. Neurologic: PERRL, EOMI, accommodation nl, no face palsy, no dysarthria CN's II-XI intact bilaterally Motor/Sensory: + tremor (mild tremor, more noteable on left ) Finger to nose with mild tremor, worse on the R; heel to varma normal bilaterally. Psychiatric: Orientation: oriented x 3 Results & Data Results & Data ([facility]) Vital Signs (Past 12 Hours) Vital Signs Temp Pulse Resp BP Pulse Ox O2 Del Method 03/15/22 16:43 70 Room Air 03/15/22 16:43 98 Room Air 03/15/22 16:40 36.5 C 84 16 150/90 H 96 Room Air Supervising Physician Co-Signing Physician Notes Patient seen and examined, chart reviewed, case discussed with Chip Adhikari MD and I agree with the assessment and plan as above except as otherwise noted Labs and images reviewed Hammad is a 76-year-old male with a history of COPD, MS, depression/anxiety, hyperglycemia, CVA, DM, and overactive bladder who presented as an outpatient for evaluation of confusion. MRI showed an acute punctate lacunar infarct within the right caudate, old lacunar infarcts and patient was recommended by neurology to present to the ER for completion of stroke evaluation, PT/OT, and potential placement. patient reports he has had worsened balance in the last week, more so than normal and does not feel that this has changed today. Rhoq-az-kmtc is normal, patient with bilateral difficulty on finger-nose more pronounced on the right greater than left, slightly worse than normal per patient and family Recent head/neck CTA performed 10/2021 with no hemodynamic significant stenosis. BP 156/77 at evaluation. Sinus rhythm. Echo 03/2021 was with normal LV SF, injection of contrast showed no interarterial shunt at that time. PT/OT pending. Agree with additional work-up/management above. Continue aspirin/Plavix, repeat lipids pending, A1c pending.PT/OT. Resident Activity Tracking Resident Involvement: Resident Care Provided Care Provided: Adult Hospital Medicine (1) Hypertension Hypertension type: essential hypertension Qualified Code(s): I10 - Essential (primary) hypertension (2) COPD (chronic obstructive pulmonary disease) COPD type: unspecified COPD Qualified Code(s): J44.9 - Chronic obstructive pulmonary disease, unspecified (3) Gastro-esophageal reflux Esophagitis presence: esophagitis presence not specified Qualified Code(s): K21.9 - Gastro-esophageal reflux disease without esophagitis
[2022-03-15 20:14] LABS: INR 1.1 (0.9-1.1); Partial Thromboplastin Time 27.3 Seconds (21.0-31.0); Prothrombin Time 11.4 Seconds (9.0-12.0)
[2022-03-15] MEDS ORDERED: ACETAMINOPHEN 325 MG TAB PO PRN (22:38)
[2022-03-15] MEDS ORDERED: ALBUTEROL HFA 8 GM INHALER INH PRN (22:38)
[2022-03-15] MEDS ORDERED: PHARMACIST DISCHARGE MED REC CONSULT PRN (22:38)
[2022-03-15] MEDS ORDERED: POLYETHYLENE (MIRALAX) 17 GM PACK PO PRN (22:38)
[2022-03-15] MEDS ORDERED: INFLUENZA VACCINE HIGH DOSE PF 65+ 0.7 ML SYR IM ONE (23:01)
[2022-03-15] MEDS ORDERED: MELATONIN 3 MG TAB PO PRN (23:09)
--- NOTE | 2022-03-15 23:17 | Emergency Department Note ---
History of Present Illness General Chief Complaint: TIA Symptoms Stated Complaint: MINI STROKE Time Seen by Provider: 03/15/22 17:36 History of Present Illness Provider Complaint: + abnormal lab (abnormal MRI) Description of abnormal result: abnormal MRI Associated symptoms: no fever, no chest pain, no shortness of breath, no malaise or no nausea HPI narrative: reports that the patient has had increased weakness more tremor. She also reports that the patient has had a more wide gait and worsening memory since yesterday Home Medications Medication Instructions Recorded Confirmed Type docusate sodium 100 mg capsule 100 mg PO HS 01/08/19 03/15/22 History (Stool Softener) polyethylene glycol 3350 17 17 gm PO DAILY PRN constipation 10/14/19 03/15/22 Rx gram/dose oral powder (Miralax) #119 grams cholecalciferol (vitamin D3) 125 5,000 unit PO DAILY 09/01/20 03/15/22 History mcg (5,000 unit) capsule aspirin 81 mg tablet,delayed 81 mg PO QAM #90 tabs 03/11/21 03/15/22 Rx release venlafaxine 150 mg 150 mg PO HS 90 days #90 caps 05/25/21 03/15/22 Rx capsule,extended release 24 hr atorvastatin 40 mg tablet 40 mg PO QPM #90 tabs 05/30/21 03/15/22 Rx albuterol sulfate 90 mcg/actuation 2 puff inhalation Q4 PRN Shortness 09/19/21 03/15/22 History aerosol inhaler Of Breath Or Wheezing fluticasone 500 mcg-salmeterol 50 1 ea inhalation BID 09/19/21 03/15/22 History mcg/dose blistr powdr for inhalation ipratropium 20 mcg-albuterol 100 2 puff inhalation QID PRN 09/19/21 03/15/22 History mcg/actuation mist for inhalation Shortness Of Breath Or Wheezing (Combivent Respimat) lansoprazole 30 mg capsule,delayed 30 mg PO QAM 09/19/21 03/15/22 History release (Prevacid) pmhfwqhsgfpw-qklbqifi-sepswg tablet 1 tab PO QAM 09/19/21 03/15/22 History vitamin B complex 1 tab PO QAM 09/19/21 03/15/22 History lancets 33 gauge (OneTouch Delica #100 ea 09/27/21 02/20/22 Rx Lancets) blood sugar diagnostic (OneTouch #100 ea 09/29/21 02/20/22 Rx Ultra Test strips) blood-glucose meter (OneTouch #1 ea 09/29/21 02/20/22 Rx Ultra2 Meter kit) quetiapine 100 mg tablet 100 mg PO HS 90 days #90 tabs 09/29/21 03/15/22 Rx losartan 25 mg tablet 25 mg PO HS #90 tabs 10/06/21 03/15/22 Rx ocrelizumab 30 mg/mL intravenous 600 mg (20 mL) IV .COMPLEX #20 mL 11/02/21 03/15/22 Rx solution (Ocrevus) clopidogrel 75 mg tablet 75 mg PO DAILY #90 tabs 11/22/21 03/15/22 Rx tolterodine 4 mg capsule,extended 4 mg PO QAM bladder control #30 11/22/21 03/15/22 Rx release 24 hr caps metformin 500 mg tablet,extended 500 mg PO QAM #90 tabs 11/28/21 03/15/22 Rx release 24 hr melatonin 3 mg capsule 3 mg PO HS PRN Sleep 02/20/22 03/15/22 History diazepam 5 mg tablet (Valium) 5 mg PO .COMPLEX #2 tabs 02/21/22 03/15/22 Rx Allergies Allergy/AdvReac Type Severity Reaction Status Date / Time latex Allergy Unknown unknown Verified 03/15/22 18:03 adhesive AdvReac Intermediate RASH UNDER Verified 03/15/22 18:03 TAPES Past Med/Surg History Medical History (Updated 03/15/22 @ 23:22 by Sami Trujillo) Acute foreign body of left ear canal Altered mental status COPD (chronic obstructive pulmonary disease) Depression with anxiety Eyebrow laceration Facial abrasion Fall Lumbar radiculopathy Multiple sclerosis Syncope Tinnitus, bilateral Surgical History History of colonoscopy History of open heart surgery S/P cataract surgery S/P tonsillectomy Family History Father , age 78 of cancer (uncertain type) Hypertension Hearing loss Colorectal cancer Mother , age 81 of cancer (uncertain type) Diabetes Hypertension Hearing loss Stroke Breast cancer Sister Hypertension Hearing loss Breast cancer Grandmother (Paternal) Hypertension Brother Hearing loss Social History Smoking Status: Former smoker Tobacco Type: Cigarettes packs per day: 2; Years Smoked: 30; Number of Years Since Quit: 30; Second Hand Exposure: No; Do You Dip or Chew Tobacco: No; Hx Alcohol Use: No Hx Substance Use: No Preferred Language: Faroese Communication Ability: Effective Visual Impairment: Limited Hearing Ability: Use of Hearing Aid Early Childhood Education Specialist Required: No Beliefs That Will Affect Care: None marital status: / Current Living Situation: Family Current Living Situation Comment: Lives with daughter current occupational status: retired and disabled current occupation: Retired maintenance department @ [employer] How many Children do You have: 3 Other Information That Helps Us Care for You: No Feels Safe at Home: Yes Safety Concerns: Feels Safe At This Time Seatbelt Use: never Sunscreen Use: No Assistive Devices: Cane and Scooter/Electric Scooter Review of Systems A total of 10 systems reviewed and were otherwise negative Physical Exam Vital Signs: Vital Signs - 24 hr 03/15/22 16:40 03/15/22 16:43 03/15/22 16:43 Temperature 36.5 C Temperature Source Temporal Artery Sc an Pulse Rate 84 70 Pulse Rhythm Regular Respiratory Rate 16 Respiratory Effort / Characteristics Non-Labored Respiratory Depth Normal Blood Pressure 150/90 H Blood Pressure Blanka n 110 Pulse Oximetry 96 98 Oxygen Delivery Me thod Room Air Room Air Room Air Sepsis Recent Feve r Within 48 Hours No Sepsis New/Unexpla ined Change in Men camila Status No Sepsis Action Take n by Nursing No Action Required 03/15/22 17:42 03/15/22 17:57 03/15/22 18:00 Temperature Temperature Source Pulse Rate 78 75 Pulse Rhythm Respiratory Rate 23 18 Respiratory Effort / Characteristics Respiratory Depth Blood Pressure 141/83 H Blood Pressure Blanka n 102 Pulse Oximetry Oxygen Delivery Me thod Sepsis Recent Feve r Within 48 Hours Sepsis New/Unexpla ined Change in Men camila Status Sepsis Action Take n by Nursing 03/15/22 18:00 03/15/22 18:10 03/15/22 18:20 Temperature Temperature Source Pulse Rate 72 75 72 Pulse Rhythm Respiratory Rate 24 23 22 Respiratory Effort / Characteristics Respiratory Depth Blood Pressure Blood Pressure Blanka n Pulse Oximetry Oxygen Delivery Me thod Sepsis Recent Feve r Within 48 Hours Sepsis New/Unexpla ined Change in Men camila Status Sepsis Action Take n by Nursing 03/15/22 18:30 03/15/22 18:30 03/15/22 18:40 Temperature Temperature Source Pulse Rate 71 70 Pulse Rhythm Respiratory Rate 21 24 Respiratory Effort / Characteristics Respiratory Depth Blood Pressure 156/77 H Blood Pressure Blanka n 103 Pulse Oximetry Oxygen Delivery Me thod Sepsis Recent Feve r Within 48 Hours Sepsis New/Unexpla ined Change in Men camila Status Sepsis Action Take n by Nursing 03/15/22 18:50 03/15/22 18:37 03/15/22 20:00 Temperature Temperature Source Pulse Rate 71 Pulse Rhythm Respiratory Rate 22 14 Respiratory Effort / Characteristics Non-Labored Respiratory Depth Normal Blood Pressure Blood Pressure Blanka n Pulse Oximetry Oxygen Delivery Me thod Sepsis Recent Feve r Within 48 Hours Sepsis New/Unexpla ined Change in Men camila Status Sepsis Action Take n by Nursing 03/15/22 19:00 03/15/22 19:00 03/15/22 19:10 Temperature Temperature Source Pulse Rate 71 68 Pulse Rhythm Respiratory Rate 16 17 Respiratory Effort / Characteristics Respiratory Depth Blood Pressure 145/79 H Blood Pressure Blanka n 101 Pulse Oximetry Oxygen Delivery Me thod Sepsis Recent Feve r Within 48 Hours Sepsis New/Unexpla ined Change in Men camila Status Sepsis Action Take n by Nursing 03/15/22 19:20 Temperature Temperature Source Pulse Rate 71 Pulse Rhythm Respiratory Rate Respiratory Effort / Characteristics Respiratory Depth Blood Pressure Blood Pressure Blanka n Pulse Oximetry Oxygen Delivery Me thod Sepsis Recent Feve r Within 48 Hours Sepsis New/Unexpla ined Change in Men camila Status Sepsis Action Take n by Nursing Physical Exam: Physical Exam HENT: Exam performed. - Head: Normocephalic and atraumatic. - Right Ear: External ear normal. No mastoid tenderness. - Left Ear: External ear normal. No mastoid tenderness. - Mouth/Throat: The oropharynx is clear and moist. No trismus in the jaw. No dental abscesses or uvula swelling. No oropharyngeal exudate or tonsillar abscesses. EYES: Conjunctivae and EOM are normal. Pupils are equal, round, and reactive to light. Right eye exhibits no discharge. Left eye exhibits no discharge. No scleral icterus. NECK: Normal range of motion. Neck supple. No JVD present. No spinous process tenderness present. CV: Normal rate, regular rhythm, normal heart sounds and intact distal pulses. There is no peripheral edema. Palpable radial pulses bue. PULM/CHEST: Effort normal and breath sounds normal. No respiratory distress. No stridor. He has no wheezes. He has no rales. - Chest Wall: He exhibits no tenderness. ABD: The abdomen is soft. NEURO: Right-sided tremor and weakness. SKIN: Warm and dry. Course Course 1736: The patient was evaluated in room C12. A complete history and physical exam was performed Medical Decision Making Laboratory Data Result diagrams: 03/15/22 17:58 03/15/22 17:58 Lab Results 03/15/22 03/15/22 03/15/22 Range/Units 17:58 17:58 17:58 WBC 7.32 (4.8-10.8) K/ul RBC 4.54 L (4.63-6.08) M/uL Hgb 14.1 (14.0-18.0) g/dl Hct 40.1 (40.1-51.0) % MCV 88.3 (80.0-100.0) fL MCH 31.1 (25.0-34.0) pg MCHC 35.2 (32.0-36.0) g/dL RDW Std Deviation 41.8 (36.4-46.3) fL RDW Coeff of Lilia 12.9 (11.5-14.5) % Plt Count 148 (130-400) K/uL MPV 10.4 (9.4-12.4) fL PT Cancelled INR Cancelled APTT Cancelled PTT Ratio Cancelled Sodium 139 (136-145) mmol/L Potassium 3.4 L (3.5-5.1) mmol/L Chloride 106 (98-107) mmol/L Carbon Dioxide 26 (21-32) mmol/L Anion Gap 7 (3-11) BUN 22 (6-23) mg/dl Creatinine 0.76 (0.6-1.4) mg/dl Est Cr Clr Drug Dosing 92.2 ml/min Est GFR ( Amer) 103.4 ml/min Est GFR (Non-Af Amer) 89.2 ml/min BUN/Creatinine Ratio 28.9 H (10-20) Glucose 134 H (70-99(Fasting)) mg/dl Calcium 8.4 L (8.5-10.1) mg/dl Magnesium 1.9 (1.7-2.4) mg/dl Total Bilirubin 1.1 H (0.2-1.0) mg/dl AST 13 (13-39) U/L ALT 15 (7-52) U/L Alkaline Phosphatase 72 (34-104) U/L Total Protein 6.1 (6.0-8.3) gm/dl Albumin 3.8 (3.4-5.0) gm/dl Globulin 2.3 L (2.5-4.0) gm/dl Albumin/Globulin Ratio 1.7 (0.9-2) SARS-CoV-2, RNA, NAAT (NEGATIVE) 03/15/22 03/15/22 Range/Units 18:00 19:46 WBC (4.8-10.8) K/ul RBC (4.63-6.08) M/uL Hgb (14.0-18.0) g/dl Hct (40.1-51.0) % MCV (80.0-100.0) fL MCH (25.0-34.0) pg MCHC (32.0-36.0) g/dL RDW Std Deviation (36.4-46.3) fL RDW Coeff of Lilia (11.5-14.5) % Plt Count (130-400) K/uL MPV (9.4-12.4) fL PT 11.4 INR 1.1 APTT 27.3 PTT Ratio 1.0 Sodium (136-145) mmol/L Potassium (3.5-5.1) mmol/L Chloride (98-107) mmol/L Carbon Dioxide (21-32) mmol/L Anion Gap (3-11) BUN (6-23) mg/dl Creatinine (0.6-1.4) mg/dl Est Cr Clr Drug Dosing ml/min Est GFR ( Amer) ml/min Est GFR (Non-Af Amer) ml/min BUN/Creatinine Ratio (10-20) Glucose (70-99(Fasting)) mg/dl Calcium (8.5-10.1) mg/dl Magnesium (1.7-2.4) mg/dl Total Bilirubin (0.2-1.0) mg/dl AST (13-39) U/L ALT (7-52) U/L Alkaline Phosphatase (34-104) U/L Total Protein (6.0-8.3) gm/dl Albumin (3.4-5.0) gm/dl Globulin (2.5-4.0) gm/dl Albumin/Globulin Ratio (0.9-2) SARS-CoV-2, RNA, NAAT NEGATIVE (NEGATIVE) ECG Data Indication: weakness Rate (beats per minute): 83 Rhythm: normal sinus Findings: no ST depression, no ST elevation or no prolonged QT MDM Narrative Cardiac monitoring: An order was placed for continuous cardiac monitoring. The monitor shows a rate of 80 with sinus rhythm EMR reviewed. Patient had an outpatient MRI done today which showed acute punctate lacunar infarct within the right caudate head. [facility]. Impression & Plan Acute CVA (cerebrovascular accident) Discharge Plan Visit Data Chief Complaint: TIA Symptoms Stated Complaint: MINI STROKE ED Provider: Sami Trujillo Discharge Problem: Acute CVA (cerebrovascular accident) Patient Disposition: Admitted As Inpatient Discharge Instructions Interventions: ED Discharge Assessment Last Done: 03/15/22 21:21
[2022-03-15] MEDS: VENLAFAXINE HCL XR 150 MG CAPXR PO SCH (23:56)
[2022-03-15] MEDS: ATORVASTATIN 40 MG TAB PO SCH (23:56)
[2022-03-15] MEDS: DOCUSATE SODIUM 100 MG CAP PO SCH (23:56)
[2022-03-15] MEDS: QUEtiapine FUMARATE 100 MG TABLET PO SCH (23:56)
[2022-03-16 06:42] LABS: Hemoglobin 13.2 g/dl (14.0-18.0); Mean Corpuscular Hemoglobin 31.2 pg (25.0-34.0); Mean Corpuscular Hgb Conc 35.7 g/dL (32.0-36.0); Mean Corpuscular Volume 87.5 fL (80.0-100.0); Mean Platelet Volume 10.9 fL (9.4-12.4); Platelet Count 131 K/uL (130-400); RDW Coefficient of Variation 12.8 % (11.5-14.5); RDW Standard Deviation 40.7 fL (36.4-46.3); Red Blood Count 4.23 M/uL (4.63-6.08); White Blood Count 7.39 K/ul (4.8-10.8)
[2022-03-16 07:00] LABS: Basophils # (auto) 0.04 K/uL (0-0.2); Basophils % (auto) 0.5 %; Eosinophils # (auto) 0.19 K/uL (0-0.50); Eosinophils % (auto) 2.6 %; Immature Granulocytes # (auto) 0.01 K/uL (0.00-0.02); Immature Granulocytes % (auto) 0.1 %; Lymphocytes # (auto) 1.68 K/uL (1.2-3.4); Lymphocytes % (auto) 22.7 %; Monocytes # (auto) 0.68 K/uL (0.24-0.82); Monocytes % (auto) 9.2 %; Neutrophils # (auto) 4.79 K/uL (1.4-6.5); Neutrophils % (auto) 64.9 %
[2022-03-16 07:04] LABS: BUN Creatinine Ratio 32.9 (10-20); Calcium 8.5 mg/dl (8.5-10.1); Chol HDL Ratio 2.5 (0-5); Creatinine Clr Calc Pharmacy 100.1 ml/min; Est GFR (Non-African American) 92.3 ml/min; Potassium 3.4 mmol/L (3.5-5.1)
[2022-03-16] MEDS ORDERED: POTASSIUM CHLORIDE CRTAB 20 MEQ TABCR PO STA ×2 (07:47→11:31)
[2022-03-16 07:51] LABS: Estimated Average Glucose 108 mg/dl; Hemoglobin A1C 5.4 % (4.5-5.6)
--- NOTE | 2022-03-16 09:53 | Hospitalist Progress Note ---
Date of Service March 16, 2022 Assessment & Plan (1) Acute CVA (cerebrovascular accident): Plan: Hammad is a 76 year old male w/ PmHx Multiple sclerosis, TIA (last 03/2021), Depression and anxiety, lubar radiculopathy admitted for new CVA not requiring thrombolytics. Acute R-sided lacunar ischemic stroke with previous history of CVA -MRI brain- acute punctate lacunar infarct within the R caudate head -MRI cervical spine- no acute changes, stable demyelination from MS -A1C 5.3, lipid panel normal on admission -Echocardiogram pending, 03/24 echocardiogram- unremarkable, mild/moderate aortic regurgitation -Continue aspirin, Plavix, atorvastatin -Fall precautions, aspiration precautions, PT/OT evaluatins pending- pt will very likely require placement for rehab -Neurology consulted, awaiting recommendations Multiple sclerosis: -MRI of cervical spine and brain w/o evidence of worsening of demyelination or new lesions. -There is likely some contribution from MS to her dysphagia and progressive gait disturbance -Do not suspect an MS exacerbation requiring steroid therapy currently HTN: -On losartan 25mg at home, held on admission due to permissive hypertension -BP stable at present COPD: -Continue home albuterol and ipratropium/albuterol PRN. Depression/anxiety: -Continue home venlafaxine. GERD: -Continue home lansoprazole. Overactive bladder: -Continue home tolterodine. DVT prophylaxis: ASA 81mg, Plavix 75mg, SCDs F/E/N/GI: Minced and moist diet Code Status: DNR/DNI Dispo: Medical/surgical with telemetry (2) Gait disturbance: (3) Hypertension: (4) COPD (chronic obstructive pulmonary disease): (5) Multiple sclerosis: (6) Depression with anxiety: (7) Gastro-esophageal reflux: (8) Hyperglycemia: (9) H/O: stroke: (10) Esophageal dysmotility: Admission and Anticipated Discharge Date Admission Date: March 15, 2022 Supervising Physician Co-Signing Physician Notes I personally examined the patient and verified all marquez points of history and exam, discussed case, and agree with decision making with Dr Montano. Feeling okay just weak. Does feel up to going home, but notes tomorrow he will have better family support. PT and OT input appreciated. Neurology input appreciated. Vitals noted, in general he is awake and alert pleasant no distress. HEENT normocephalic atraumatic mucous membranes moist. Breathing unlabored no accessory muscle use good effort. Skin shows no rashes no pallor or icterus. Neuro shows chronic appearing weakness. Strokenoted on MRI. Outpatient PT/OT. Overall seems to be largely maximized for secondary risk reductionappreciate neurology recommendations for escalated antiplateletand will have him follow-up with his primary neurologist. While escalating his statin dose could potentially provide more plaque stabilization, with his LDL already at 49, I do worry about increased risk of bleeding. He is not a smoker and his A1c is respectable, he is already on an ARB. MS related weaknessoutpatient PT/OT. DVT prophylaxisdual antiplatelet and ambulation. Subjective No acute events overnight. Pt laying in bed at time of evaluation. Denies any acute complaints, states he has not had any new weakness, numbness, vision change, slurred speech. Feels well and is aware of the acute stroke he experienced. Review of Systems Review of Systems: Per subjective Physical Exam Constitutional: WD/WN, vitals as above Eyes: PERRL, conjunctivae normal, anicteric sclerae ENMT: external ear and nose normal, oropharynx normal Neck: normal visual inspection Respiratory: normal respiratory effort, lungs clear to auscultation Gastrointestinal (Abdomen): normal bowel sounds, soft, nontender, no hepatosplenomegaly Musculoskeletal: no cyanosis or clubbing, extremities motor strength 5/5 Neurologic: PERRL, EOMI, accommodation nl, no face palsy, no dysarthria CN's II-XI intact bilaterally +Finger nose finger dysmetria, mildly reduced strength of LUE compared to full strength of RUE, intact sensorium, clear speech Psychiatric: Orientation: oriented x 3 Results & Data Results & Data ([facility]) Vital Signs (Past 12 Hours) Vital Signs Temp Pulse Pulse Resp BP Pulse Ox O2 Del Method 03/16/22 08:08 36.5 C 63 20 109/64 92 Room Air 03/16/22 07:19 61 03/16/22 03:20 36.6 C 67 18 145/77 H 94 Room Air 03/16/22 01:35 69 03/16/22 00:01 36.6 C 67 18 139/75 92 Room Air 03/15/22 22:38 36.6 C 69 16 180/88 H 97 Room Air Resident Activity Tracking Resident Involvement: Resident Care Provided Care Provided: Adult Hospital Medicine (1) COPD (chronic obstructive pulmonary disease) COPD type: unspecified COPD Qualified Code(s): J44.9 - Chronic obstructive pulmonary disease, unspecified (2) Gastro-esophageal reflux Esophagitis presence: esophagitis presence not specified Qualified Code(s): K21.9 - Gastro-esophageal reflux disease without esophagitis (3) Hypertension Hypertension type: essential hypertension Qualified Code(s): I10 - Essential (primary) hypertension
[2022-03-16] MEDS: PANTOprazole 40 MG TAB PO SCH (10:30)
[2022-03-16] MEDS: TOLTERODINE TARTRATE LA 4 MG CAPCR PO SCH (10:30)
[2022-03-16] MEDS: ASPIRIN 81 MG ECTAB PO SCH (10:30)
[2022-03-16] MEDS: CLOPIDOGREL BISULFATE 75 MG TAB PO SCH (10:30)
--- NOTE | 2022-03-16 15:05 | Neurology Consultation ---
Date of Consultation March 16, 2022 Assessment & Plan (1) CVA (cerebral vascular accident): Impression: The patient has history of multiple TIA/CVAs. Based on worsening generalized weakness and ambulation, brain MRI was done, which showed acute lacunar infarct in right caudate head. Based on history and MRI findings, the most likely underlying mechanism is small vessel disease. The patient has been on double antiplatelet treatment. Blood pressure and hyperlipidemia have been well treated. Plan/recommendations: We do recommend increasing aspirin dosage to 325 mg with Plavix 75 mg daily. Management of hyperlipidemia. Patient will stay on current statin. Goal LDL level is lower than 70. Management of hypertension and diabetes mellitus. Goal blood pressure is below 130/80. There is no indication for another echocardiogram. Zio patch for outpatient cardiac rhythm monitoring to investigate for paroxysmal atrial fibrillation. Outpatient physical therapy. The patient is neurologically stable and can be discharged home. Follow-up with his regular neurologist in a month. (2) Gait disturbance: Impression: The patient has long history of ambulation difficulty. He is currently on his baseline and can ambulate with walker independently. Multiple sclerosis, small vessel disease and related several lacunar infarcts, and possible diabetic peripheral polyneuropathy are likely contributors to the patient's poor balance. Plan: Outpatient physical therapy. Fall precautions are explained to the patient. (3) Multiple sclerosis: Impression: The patient was diagnosed with multiple sclerosis over 20 years ago. He is currently on Ocrevus infusion treatment. Current imaging studies did not show acute lesion to suggest MS exacerbation. Plan: The patient will be followed by his regular neurologist as scheduled before. Plan Thank you for the consultation. History of Present Illness Reason for Consultation: Generalized weakness, worsening ambulation. Requesting Physician: Faustino Mccoy DO Attending Physician: Faustino Mccoy DO History of Present Illness The patient is 76-year-old gentleman, with long history of multiple sclerosis, and recurrent TIA/CVA, who was brought to emergency department yesterday, after his daughter noticed some worsening ambulation and generalized weakness. The patient denies any new neurological symptoms. Apparently, he has residual right-sided weakness/stiffness from prior strokes versus multiple sclerosis. He has not fallen down recently. He has been treated on different disease modifying treatments, was on Tysabri for a long time, which was switched to Ocrevus. The patient has been followed by local neurologist regularly and last visit was a month ago. The patient has significant cerebral small vessel disease and related lacunar infarcts. On this admission, the patient had brain MRI and cervical spine MRI with and without contrast, which showed chronic demyelinating plaques but no contrast-enhancing lesion. There was a acute ischemic lacunar stroke, within the right caudate head. MRI also showed old lacunar infarcts in bilateral basal ganglia, thalami, and periventricular white matter. The patient has been on double antiplatelet treatment as well as statin. The last serum LDL level was lower than 70. Cardiac monitoring has been showing sinus rhythm. Recent echocardiogram was unremarkable. The patient denies swallowing difficulty although, he was investigated for dysphagia in October 2021. He has no symptoms to suggest infectious process. He can ambulate with w alker which is baseline for him. His mental status has not been changed recently. He has been compliant on current treatment. I have reviewed the patient's chart including imaging studies and visualized them personally. I have discussed the case with the patient and answered his questions in detail. Allergies Allergy/AdvReac Type Severity Reaction Status Date / Time latex Allergy Unknown unknown Verified 03/15/22 18:03 adhesive AdvReac Intermediate RASH UNDER Verified 03/15/22 18:03 TAPES Home Medications Medication Instructions Recorded Confirmed Type docusate sodium 100 mg capsule 100 mg PO HS 01/08/19 03/15/22 History (Stool Softener) polyethylene glycol 3350 17 17 gm PO DAILY PRN constipation 10/14/19 03/15/22 Rx gram/dose oral powder (Miralax) #119 grams cholecalciferol (vitamin D3) 125 5,000 unit PO DAILY 09/01/20 03/15/22 History mcg (5,000 unit) capsule aspirin 81 mg tablet,delayed 81 mg PO QAM #90 tabs 03/11/21 03/15/22 Rx release venlafaxine 150 mg 150 mg PO HS 90 days #90 caps 05/25/21 03/15/22 Rx capsule,extended release 24 hr atorvastatin 40 mg tablet 40 mg PO QPM #90 tabs 05/30/21 03/15/22 Rx albuterol sulfate 90 mcg/actuation 2 puff inhalation Q4 PRN Shortness 09/19/21 03/15/22 History aerosol inhaler Of Breath Or Wheezing fluticasone 500 mcg-salmeterol 50 1 ea inhalation BID 09/19/21 03/15/22 History mcg/dose blistr powdr for inhalation ipratropium 20 mcg-albuterol 100 2 puff inhalation QID PRN 09/19/21 03/15/22 History mcg/actuation mist for inhalation Shortness Of Breath Or Wheezing (Combivent Respimat) lansoprazole 30 mg capsule,delayed 30 mg PO QAM 09/19/21 03/15/22 History release (Prevacid) jkwqaipekzod-wxkjeayg-ztqakj tablet 1 tab PO QAM 09/19/21 03/15/22 History vitamin B complex 1 tab PO QAM 09/19/21 03/15/22 History lancets 33 gauge (OneTouch Delica #100 ea 09/27/21 02/20/22 Rx Lancets) blood sugar diagnostic (OneTouch #100 ea 09/29/21 02/20/22 Rx Ultra Test strips) blood-glucose meter (OneTouch #1 ea 09/29/21 02/20/22 Rx Ultra2 Meter kit) quetiapine 100 mg tablet 100 mg PO HS 90 days #90 tabs 09/29/21 03/15/22 Rx losartan 25 mg tablet 25 mg PO HS #90 tabs 10/06/21 03/15/22 Rx ocrelizumab 30 mg/mL intravenous 600 mg (20 mL) IV .COMPLEX #20 mL 11/02/21 03/15/22 Rx solution (Ocrevus) clopidogrel 75 mg tablet 75 mg PO DAILY #90 tabs 11/22/21 03/15/22 Rx tolterodine 4 mg capsule,extended 4 mg PO QAM bladder control #30 11/22/21 03/15/22 Rx release 24 hr caps metformin 500 mg tablet,extended 500 mg PO QAM #90 tabs 11/28/21 03/15/22 Rx release 24 hr melatonin 3 mg capsule 3 mg PO HS PRN Sleep 02/20/22 03/15/22 History diazepam 5 mg tablet (Valium) 5 mg PO .COMPLEX #2 tabs 02/21/22 03/15/22 Rx Patient History Medical History (Updated 03/16/22 @ 16:22 by Ryan Javier MD) Acute foreign body of left ear canal Altered mental status COPD (chronic obstructive pulmonary disease) Depression with anxiety Eyebrow laceration Facial abrasion Fall Lumbar radiculopathy Multiple sclerosis Multiple sclerosis Syncope Tinnitus, bilateral Surgical History History of colonoscopy History of open heart surgery S/P cataract surgery S/P tonsillectomy Family History Father , age 78 of cancer (uncertain type) Hypertension Hearing loss Colorectal cancer Mother , age 81 of cancer (uncertain type) Diabetes Hypertension Hearing loss Stroke Breast cancer Sister Hypertension Hearing loss Breast cancer Grandmother (Paternal) Hypertension Brother Hearing loss Social History Smoking Status: Former smoker Tobacco Type: Cigarettes packs per day: 2; Years Smoked: 30; Number of Years Since Quit: 30; Second Hand Exposure: No; Do You Dip or Chew Tobacco: No; Hx Alcohol Use: No Hx Substance Use: No Preferred Language: Tuvaluan Communication Ability: Effective Visual Impairment: Limited Hearing Ability: Use of Hearing Aid Lead Php Developer Required: No Beliefs That Will Affect Care: None marital status: / Current Living Situation: Family Current Living Situation Comment: Lives with daughter current occupational status: retired and disabled current occupation: Retired maintenance department @ [employer] How many Children do You have: 1 Other Information That Helps Us Care for You: No Feels Safe at Home: Yes Safety Concerns: Feels Safe At This Time Seatbelt Use: never Sunscreen Use: No Assistive Devices: Cane, Scooter/Electric Scooter and Wheelchair Review of Systems Review of Systems: All systems reviewed & are unremarkable except as noted in HPI & below Physical Exam Physical Exam: General Examination: Constitutional: Well developed person in no acute distress. HEENT: Normal exam with inspection. CV: Hearth rhythm is regular. Neck: Supple, no carotid bruits. Lungs: Non-labored and comfortable breathing. Abdomen: Soft, non-tender, non-distended. Skin: No rash or ecchymosis. Extremities: No edema or cyanosis NEUROLOGICAL EXAMINATION: Mental Status: Alert and oriented to place, person and time. Cranial Nerves: II-XII are intact. No nystagmus. Funduscopy: Normal looking optic discs. Motor: 5-/5 in upper extremities except right hand axle polisher is 4+/5. Right leg strength is 4+ to 5-/5, left leg strength is 5-/5. Tone: Slightly increased tome in right upper and lower extremities. Sensory: Intact to all sensory modalities except decreased sensation in feet Coordination: No dysmetria with FTN testing. Speech: Fluent. Comprehension is intact. Gait: Unsteady, wide-based with right spastic steppage. Can ambulate independently with walker. DTRs: 2+ in upper extremities and 1+ in lower extremities. No Babinski. Musculoskeletal: Normal muscle bulk, no atrophy. Results & Data ([facility]) Vital Signs (Past 12 Hours) Vital Signs Temp Pulse Pulse Resp BP Pulse Ox O2 Del Method 03/16/22 11:28 36.4 C L 66 19 132/75 94 Room Air 03/16/22 08:08 36.5 C 63 20 109/64 92 Room Air 03/16/22 07:19 61 03/16/22 03:20 36.6 C 67 18 145/77 H 94 Room Air Laboratory Results Laboratory Results - last 24 hr 03/15/22 03/15/22 03/15/22 17:58 17:58 17:58 WBC 7.32 RBC 4.54 L Hgb 14.1 Hct 40.1 MCV 88.3 MCH 31.1 MCHC 35.2 RDW Std Deviation 41.8 RDW Coeff of Lilia 12.9 Plt Count 148 MPV 10.4 Immature Gran % (Auto) Neut % (Auto) Lymph % (Auto) Cowley % (Auto) Eos % (Auto) Baso % (Auto) Neut # (Auto) Lymph # (Auto) Cowley # (Auto) Eos # (Auto) Baso # (Auto) Immature Gran # (Auto) PT Cancelled INR Cancelled APTT Cancelled PTT Ratio Cancelled Sodium 139 Potassium 3.4 L Chloride 106 Carbon Dioxide 26 Anion Gap 7 BUN 22 Creatinine 0.76 Est Cr Clr Drug Dosing 92.2 Est GFR ( Amer) 103.4 Est GFR (Non-Af Amer) 89.2 BUN/Creatinine Ratio 28.9 H Glucose 134 H POC Glucose Estimat Average Glucose Hemoglobin A1c Calcium 8.4 L Magnesium 1.9 Total Bilirubin 1.1 H AST 13 ALT 15 Alkaline Phosphatase 72 Total Protein 6.1 Albumin 3.8 Globulin 2.3 L Albumin/Globulin Ratio 1.7 Triglycerides Cholesterol LDL Cholesterol, Calc VLDL Cholesterol, Calc HDL Cholesterol Cholesterol/HDL Ratio Hepatitis C Ab (EIA) Hep C Ab Signal/Cutoff SARS-CoV-2, RNA, NAAT 03/15/22 03/15/22 03/15/22 18:00 19:46 22:17 WBC RBC Hgb Hct MCV MCH MCHC RDW Std Deviation RDW Coeff of Lilia Plt Count MPV Immature Gran % (Auto) Neut % (Auto) Lymph % (Auto) Cowley % (Auto) Eos % (Auto) Baso % (Auto) Neut # (Auto) Lymph # (Auto) Cowley # (Auto) Eos # (Auto) Baso # (Auto) Immature Gran # (Auto) PT 11.4 INR 1.1 APTT 27.3 PTT Ratio 1.0 Sodium Potassium Chloride Carbon Dioxide Anion Gap BUN Creatinine Est Cr Clr Drug Dosing Est GFR ( Amer) Est GFR (Non-Af Amer) BUN/Creatinine Ratio Glucose POC Glucose 110 H Estimat Average Glucose Hemoglobin A1c Calcium Magnesium Total Bilirubin AST ALT Alkaline Phosphatase Total Protein Albumin Globulin Albumin/Globulin Ratio Triglycerides Cholesterol LDL Cholesterol, Calc VLDL Cholesterol, Calc HDL Cholesterol Cholesterol/HDL Ratio Hepatitis C Ab (EIA) Hep C Ab Signal/Cutoff SARS-CoV-2, RNA, NAAT NEGATIVE 03/16/22 03/16/22 03/16/22 05:45 05:45 05:45 WBC 7.39 RBC 4.23 L Hgb 13.2 L Hct 37.0 L MCV 87.5 MCH 31.2 MCHC 35.7 RDW Std Deviation 40.7 RDW Coeff of Lilia 12.8 Plt Count 131 MPV 10.9 Immature Gran % (Auto) 0.1 Neut % (Auto) 64.9 Lymph % (Auto) 22.7 Cowley % (Auto) 9.2 Eos % (Auto) 2.6 Baso % (Auto) 0.5 Neut # (Auto) 4.79 Lymph # (Auto) 1.68 Cowley # (Auto) 0.68 Eos # (Auto) 0.19 Baso # (Auto) 0.04 Immature Gran # (Auto) 0.01 PT INR APTT PTT Ratio Sodium 140 Potassium 3.4 L Chloride 106 Carbon Dioxide 29 Anion Gap 5 BUN 23 Creatinine 0.70 Est Cr Clr Drug Dosing 100.1 Est GFR ( Amer) 107.0 Est GFR (Non-Af Amer) 92.3 BUN/Creatinine Ratio 32.9 H Glucose 99 POC Glucose Estimat Average Glucose Hemoglobin A1c Calcium 8.5 Magnesium Total Bilirubin AST ALT Alkaline Phosphatase Total Protein Albumin Globulin Albumin/Globulin Ratio Triglycerides 66 Cholesterol 103 LDL Cholesterol, Calc 49 VLDL Cholesterol, Calc 13 HDL Cholesterol 41 Cholesterol/HDL Ratio 2.5 Hepatitis C Ab (EIA) Pending Hep C Ab Signal/Cutoff Pending SARS-CoV-2, RNA, NAAT 03/16/22 03/16/22 03/16/22 05:45 07:43 11:40 WBC RBC Hgb Hct MCV MCH MCHC RDW Std Deviation RDW Coeff of Lilia Plt Count MPV Immature Gran % (Auto) Neut % (Auto) Lymph % (Auto) Cowley % (Auto) Eos % (Auto) Baso % (Auto) Neut # (Auto) Lymph # (Auto) Cowley # (Auto) Eos # (Auto) Baso # (Auto) Immature Gran # (Auto) PT INR APTT PTT Ratio Sodium Potassium Chloride Carbon Dioxide Anion Gap BUN Creatinine Est Cr Clr Drug Dosing Est GFR ( Amer) Est GFR (Non-Af Amer) BUN/Creatinine Ratio Glucose POC Glucose 93 149 H Estimat Average Glucose 108 Hemoglobin A1c 5.4 Calcium Magnesium Total Bilirubin AST ALT Alkaline Phosphatase Total Protein Albumin Globulin Albumin/Globulin Ratio Triglycerides Cholesterol LDL Cholesterol, Calc VLDL Cholesterol, Calc HDL Cholesterol Cholesterol/HDL Ratio Hepatitis C Ab (EIA) Hep C Ab Signal/Cutoff SARS-CoV-2, RNA, NAAT Diagnostic Findings Brain MRI-- 1. An acute punctate lacunar infarct within the right caudate head. 2. Old lacunar infarcts again noted within the bilateral basal ganglia, thalami, and periventricular white matter. 3. No change in the periventricular white matter T2 hyperintense foci which may represent chronic microvascular ischemic change or a demyelinating disease. 4. This report was called/faxed to the referring physician following dictation. ACT 112: Negative or not required by law. Electronically signed by: Augie Fernandez M.D. 03/15/2022 C-spine MRI-- 1. Unchanged T2 hyperintense foci within the cervical spinal cord suggestive of demyelinating plaques. No new lesions are identified. 2. No abnormal enhancement to suggest active demyelination. 3. Discogenic degeneration with spondylitic spurring and facet arthrosis redemonstrated resulting in multilevel neural foraminal narrowing without significant central canal stenosis. Findings also appear generally stable from the prior study. ACT 112: Negative or not required by law. The above report was generated using voice recognition software. It may contain grammatical, syntax or spelling errors. Dictated: 03/15/2022
--- NOTE | 2022-03-16 18:25 | Billing Data ---
Date of Service March 16, 2022 Coding Level of Care Code 32068 Subseq Hosp Care Lvl 3
--- NOTE | 2022-03-16 18:56 | XCELERA ---
[id number]
[2022-03-16] MEDS: ATORVASTATIN 40 MG TAB PO SCH (21:29)
[2022-03-16] MEDS: DOCUSATE SODIUM 100 MG CAP PO SCH (21:30)
[2022-03-16] MEDS: VENLAFAXINE HCL XR 150 MG CAPXR PO SCH (21:30)
[2022-03-16] MEDS: QUEtiapine FUMARATE 100 MG TABLET PO SCH (21:30)
--- NOTE | 2022-03-16 22:44 | Electrocardiogram Report ---
Test Reason : Blood Pressure : / mmHG Vent. Rate : 082 BPM Atrial Rate : 082 BPM P-R Int : 166 ms QRS Dur : 104 ms QT Int : 396 ms P-R-T Axes : 072 018 069 degrees QTc Int : 462 ms Normal sinus rhythm Normal ECG When compared with ECG of 21-SEP-2021 11:05, No significant change was found Confirmed by Adam Botello ([id number]) on 03/16/2022 10:44:04 PM Referred By: REFERRED SELF Confirmed By:Adam Botello
[2022-03-17 07:10] LABS: Basophils # (auto) 0.05 K/uL (0-0.2); Basophils % (auto) 0.8 %; Eosinophils # (auto) 0.24 K/uL (0-0.50); Eosinophils % (auto) 3.7 %; Hematocrit (blood only) 38.5 % (40.1-51.0); Hemoglobin 13.4 g/dl (14.0-18.0); Immature Granulocytes # (auto) 0.01 K/uL (0.00-0.02); Immature Granulocytes % (auto) 0.2 %; Lymphocytes % (auto) 24.7 %; Mean Corpuscular Hemoglobin 30.6 pg (25.0-34.0); Mean Corpuscular Hgb Conc 34.8 g/dL (32.0-36.0); Mean Corpuscular Volume 87.9 fL (80.0-100.0); Mean Platelet Volume 10.6 fL (9.4-12.4); Monocytes # (auto) 0.71 K/uL (0.24-0.82); Neutrophils # (auto) 3.87 K/uL (1.4-6.5); Neutrophils % (auto) 59.6 %; Platelet Count 105 K/uL (130-400); RDW Coefficient of Variation 12.7 % (11.5-14.5); Red Blood Count 4.38 M/uL (4.63-6.08); White Blood Count 6.48 K/ul (4.8-10.8)
[2022-03-17 07:12] LABS: BUN Creatinine Ratio 23.5 (10-20); Calcium 8.6 mg/dl (8.5-10.1); Est GFR (African American) 108.3 ml/min; Est GFR (Non-African American) 93.4 ml/min; Potassium 3.5 mmol/L (3.5-5.1)
[2022-03-17] MEDS: TOLTERODINE TARTRATE LA 4 MG CAPCR PO SCH (08:13)
[2022-03-17] MEDS: ASPIRIN 81 MG ECTAB PO SCH (08:13)
[2022-03-17] MEDS: CLOPIDOGREL BISULFATE 75 MG TAB PO SCH (08:13)
[2022-03-17] MEDS: PANTOprazole 40 MG TAB PO SCH (08:14)
[2022-03-17] MEDS ORDERED: STROKE PATIENT DISCHARGE STA (10:25)
--- NOTE | 2022-03-17 10:49 | Pharmacy Report ---
Pharmacist Stroke Counseling - Date of Service March 17, 2022 - Scope: Pharmacy has been consulted to provide medication discharge counseling for this patient admitted with ischemic stroke as per the Pharmacist Discharge Counseling for Stroke Patients Protocol. - Medications on Discharge: Home Medications Medication Instructions Recorded Confirmed docusate sodium 100 mg capsule 100 mg PO HS 01/08/19 03/15/22 (Stool Softener) cholecalciferol (vitamin D3) 125 5,000 unit PO DAILY 09/01/20 03/15/22 mcg (5,000 unit) capsule albuterol sulfate 90 mcg/actuation 2 puff inhalation Q4 PRN Shortness 09/19/21 03/15/22 aerosol inhaler Of Breath Or Wheezing fluticasone 500 mcg-salmeterol 50 1 ea inhalation BID 09/19/21 03/15/22 mcg/dose blistr powdr for inhalation ipratropium 20 mcg-albuterol 100 2 puff inhalation QID PRN 09/19/21 03/15/22 mcg/actuation mist for inhalation Shortness Of Breath Or Wheezing (Combivent Respimat) lansoprazole 30 mg capsule,delayed 30 mg PO QAM 09/19/21 03/15/22 release (Prevacid) yruycwfbosxw-pkifytlw-hfnouk tablet 1 tab PO QAM 09/19/21 03/15/22 vitamin B complex 1 tab PO QAM 09/19/21 03/15/22 melatonin 3 mg capsule 3 mg PO HS PRN Sleep 02/20/22 03/15/22 New Rx's Medication Instructions Recorded polyethylene glycol 3350 17 17 gm PO DAILY PRN constipation 10/14/19 gram/dose oral powder (Miralax) #119 grams aspirin 81 mg tablet,delayed 81 mg PO QAM #90 tabs 03/11/21 release venlafaxine 150 mg 150 mg PO HS 90 days #90 caps 05/25/21 capsule,extended release 24 hr atorvastatin 40 mg tablet 40 mg PO QPM #90 tabs 05/30/21 lancets 33 gauge (OneTouch Delica #100 ea 09/27/21 Lancets) blood sugar diagnostic (Oneuch #100 ea 09/29/21 Ultra Test strips) blood-glucose meter (OneTouch #1 ea 09/29/21 Ultra2 Meter kit) quetiapine 100 mg tablet 100 mg PO HS 90 days #90 tabs 09/29/21 losartan 25 mg tablet 25 mg PO HS #90 tabs 10/06/21 ocrelizumab 30 mg/mL intravenous 600 mg (20 mL) IV .COMPLEX #20 mL 11/02/21 solution (Ocrevus) clopidogrel 75 mg tablet 75 mg PO DAILY #90 tabs 11/22/21 tolterodine 4 mg capsule,extended 4 mg PO QAM bladder control #30 11/22/21 release 24 hr caps metformin 500 mg tablet,extended 500 mg PO QAM #90 tabs 11/28/21 release 24 hr diazepam 5 mg tablet (Valium) 5 mg PO .COMPLEX #2 tabs 02/21/22 - Action: The above medications, specifically ones for stroke treatment/prophylaxis, have been reviewed in detail with the patient prior to discharge. This includes indication, common adverse reactions, drug interactions, and medication administration. Medication counseling has been employed using the teach-back method to ensure understanding. - Outcome: The patient has demonstrated understanding of the medications. Additional comments: -patient stable on medications for years no questions Thank you for allowing pharmacy to be involved in the care of this patient. Please call [phone] with any additional questions
--- NOTE | 2022-03-17 12:17 | Discharge Summary ---
Date of Service March 17, 2022 Admission HPI Per Admitting Provider Hammad is a 76 year old male w/ PmHx of TIA (last March of 2021), Multiple Sclerosis, COPD, depression and anxiety, lumbar radiculopathy who presented to the ER for discovery of new stroke on MRI earlier today. Patient is with his daughter who says the patient has had several changes over the past 2 months. These include increased difficulty with gait, worsening of tremor in his upper extremities, and worsening of short and jail memory. Patient usually uses an electric scooter to ambulate outside, uses a walker to ambulate short distances. He wants to use a cane however this makes his family nervous since he is more unsteady with the cane. He's also had increased frequency of falls over the past few months, the last one was a few days prior witnessed by his son. He went to his neurology office over concern of these new findings and it was determined they would get an MRI to check for any progression of his MS or the possibility of new stroke. He had an MRI of the neck and head/brain on 03/15 and a new acute punctate lacunar infarct within the R caudate head was visualized. He was told to go to the ER for further workup and evaluation. His last stroke was March of last year, he has seen PT/OT in the past for. He also has difficulty with swallowing which his daughter in the room says is from the MS and he usually takes to soft liquidy food and stays away from dry foods. Otherwise patient does not endorse any new symptoms of focal weakness, numbness/tingling, syncope, head trauma, denies fevers, chills, shortness of breath, chest pain, palpitations, constipation. His daughter says he's had darker urine, may not be well hydrated. Admission Exam Per Admitting Provider Constitutional: WD/WN, vitals as above Eyes: PERRL, conjunctivae normal, anicteric sclerae ENMT: external ear and nose normal, oropharynx normal Skin anterior to the R ear with scabbing (daughter says he picks at this area). Neck: normal visual inspection Respiratory: normal respiratory effort, lungs clear to auscultation Cardiovascular: S1 and S2, III/ holosystolic murmur most prominent at the left lower sternal border. Gastrointestinal (Abdomen): normal bowel sounds, soft, nontender, no hepatosplenomegaly Musculoskeletal: no cyanosis or clubbing, extremities motor strength 5/5 Skin: Port in place on R upper chest for ocrelizumab infusions. Neurologic: PERRL, EOMI, accommodation nl, no face palsy, no dysarthria CN's II-XI intact bilaterally Motor/Sensory: + tremor (mild tremor, more noteable on left ) Finger to nose with mild tremor, worse on the R; heel to varma normal bilaterally. Psychiatric: Orientation: oriented x 3 Principal Diagnosis Acute lacunar ischemic stroke Discharge Exam Constitutional: WD/WN, vitals as above Eyes: PERRL, conjunctivae normal, anicteric sclerae ENMT: external ear and nose normal, oropharynx normal Neck: normal visual inspection Respiratory: normal respiratory effort, lungs clear to auscultation Gastrointestinal (Abdomen): normal bowel sounds, soft, nontender, no hepatosplenomegaly Musculoskeletal: no cyanosis or clubbing, extremities motor strength 5/5 Neurologic: PERRL, EOMI, accommodation nl, no face palsy, no dysarthria CN's II-XI intact bilaterally +Finger nose finger dysmetria, mildly reduced strength of LUE compared to full strength of RUE, intact sensorium, clear speech Psychiatric: Orientation: oriented x 3 Discharge Data Allergies Allergy/AdvReac Type Severity Reaction Status Date / Time latex Allergy Unknown unknown Verified 03/15/22 18:03 adhesive AdvReac Intermediate RASH UNDER Verified 03/15/22 18:03 TAPES Consultations 03/15/22 17:51 ED Decision to Admit Stat 03/15/22 22:38 Consult Neurology Routine Hospital Course (1) Acute CVA (cerebrovascular accident): Hammad is a 76 year old male w/ PmHx Multiple sclerosis, TIA (last 03/2021), Depression and anxiety, lubar radiculopathy admitted for new CVA not requiring thrombolytics. Acute R-sided lacunar ischemic stroke with previous history of CVA -MRI brain- acute punctate lacunar infarct within the R caudate head -MRI cervical spine- no acute changes, stable demyelination from MS -A1C 5.3, lipid panel normal on admission -Echocardiogram unremarkable -Continued aspirin 81 mg, Plavix 75 mg, atorvastatin 40 mg -Neurology consulted- recommended increase of aspirin to 325 mg and outpatient f/u -Aspirin 325 mg and Plavix 75 mg poses questionable bleeding risk to patient, defer to PCP at outpatient f/u -Pt discharged home with family support and close PCP f/u, also to facilitate outpatient PT/OT as pt would benefit from rehab but did not qualify for inpatient rehab Multiple sclerosis: -MRI of cervical spine and brain w/o evidence of worsening of demyelination or new lesions. -There is likely some contribution from MS to her dysphagia and progressive gait disturbance -Do not suspect an MS exacerbation requiring steroid therapy HTN: -On losartan 25mg at home, held on admission due to permissive hypertension -BP stable during hospital stay (2) Gait disturbance: (3) Hypertension: (4) COPD (chronic obstructive pulmonary disease): (5) Multiple sclerosis: (6) Depression with anxiety: (7) Gastro-esophageal reflux: (8) Hyperglycemia: (9) H/O: stroke: (10) Esophageal dysmotility: Total Time Total Time Spent Total Time Spent (In Minutes): 30 Discharge Plan Discharge Items Patient Disposition: Home - Home Health Services Reason For Visit: POST CVA MONITORING Discharge Diagnosis: Ischemic stroke Activity: Resume your previous activity Non-emergency contact: Primary Care Provider and Neurologist Call non-emergency contact if: you have any medication questions and your symptoms worsen Follow-up/Referrals: Jude De La Rosa MD [Primary Care Provider] - (PLEASE KEEP YOUR SCHEDULED APPOINTMENT.) Danay Espinal PA-C [Physician Manager Drug] - 03/20/22 11:45 am (THIS APPOINTMENT WILL BE WITH DANIEL GUILLEN.) Diet: Carb Consistent or DM2 Addtl Attending Provider Instructions: You were admitted to the hospital for stroke. This stroke occurred in the right side of your brain. It did appear to be a small stroke but it is vital in the aftermath of any stroke to improve your strength as much as possible. You will receive outpatient physical/occupational therapy to help in this goal. The support of your family at home will be crucial here. A discharge summary will be sent to your primary care physician to ensure co ntinuity of care. Please bring this discharge summary with you to your next office appointment so that your provider can review it at that time. Follow-up appointments: Make a follow-up appointment with your PCP within the next week. It is very important that you follow up with them shortly after discharge from the hospital. We have requested a neurology follow up appointment for you with Danay Ferrer. Medications: Your medication list has been reviewed and reconciled upon discharge to ensure accuracy and continuity of care. An updated list of all your medications is included with y our hospital discharge paperwork. Please review this list closely, and make note of any changes. Take your medications as instructed; do not skip a dose of your medicines. Make sure all of your doctors know every medicine you are taking (including xzzy-xon-xgsquum medicines, vitamins, and supplements). Call your primary care provider before taking any new medicines (including bblz-oam-lwewmue medicines, vitamins, and supplements), because some of these may interact with your current medications, or may make your symptoms worse. Tell your primary care provider if you cannot afford your medications. CONTACT YOUR PRIMARY CARE PROVIDER if you experience any of the following: Weakness Numbness Dizziness Headache Vision change Difficulty following your treatment plan, or difficulty taking medications CALL 911 OR GO TO THE EMERGENCY DEPARTMENT if you experience any of the following: Sudden, severe abdominal pain or nausea/vomiting Severe chest pain, or chest pain that radiates (moves) to your jaw or arm Sudden, severe shortness of breath or difficulty breathing Thank you for allowing us to participate in your care. Pending Studies at Discharge: No Stand-Alone Forms: Medications to Prevent Stroke, My [facility] [employer], Smoking Cessation Medications and DC Order Prescriptions: Continued polyethylene glycol 3350 [Miralax] 17 gram/dose powder 17 gm PO DAILY PRN (Reason: constipation) Qty: 119 2RF atorvastatin 40 mg tablet 40 mg PO QPM Qty: 90 3RF (DME) lancets [OneTouch Delica Lancets] 33 gauge misc See Rx Instructions .Route Qty: 100 3RF Rx Instructions: As directed (DME) OneTouch Ultra Test Strip See Rx Instructions .Route Qty: 100 3RF Rx Instructions: test once a day (DME) blood-glucose meter [OneTouch Ultra2 Meter] Kit See Rx Instructions .Route Qty: 1 0RF Rx Instructions: TEST ONCE A DAY quetiapine 100 mg tablet 100 mg PO HS 90 Days Qty: 90 3RF losartan 25 mg tablet 25 mg PO HS Qty: 90 3RF Ocrevus 30 mg/mL solution 600 mg IV .COMPLEX Qty: 20 1RF Rx Instructions: DUE IN MAY 2022. 600mg IV every 6 months. 30 mins before each infusion, premedicate w/ methylprednisolone 100mg iv,Diphenhydramine 25mg iv,and Actaminophen 500mg PO. ; May give an additional 25mg diphenhydramine IV during infusion PRN; diazepam [Valium] 5 mg tablet 5 mg PO .COMPLEX Qty: 2 0RF Rx Instructions: Take one tab 30 minutes prior to procedure, make repeat at time of procedure if needed. cholecalciferol (vitamin D3) 125 mcg (5,000 unit) capsule 5,000 unit PO DAILY venlafaxine 150 mg capsule,extended release 24hr 150 mg PO HS 90 Days Qty: 90 3RF metformin 500 mg tablet extended release 24 hr 500 mg PO QAM Qty: 90 3RF clopidogrel 75 mg tablet 75 mg PO DAILY Qty: 90 3RF tolterodine 4 mg capsule,extended release 24hr 4 mg PO QAM Qty: 30 6RF melatonin 3 mg capsule 3 mg PO HS PRN (Reason: Sleep) docusate sodium [Stool Softener] 100 mg Capsule 100 mg PO HS aspirin 81 mg Tablet,Delayed Release (Dr/Ec) 81 mg PO QAM Qty: 90 0RF lansoprazole [Prevacid] 30 mg capsule,delayed release(DR/EC) 30 mg PO QAM Combivent Respimat 20-100 mcg/actuation mist 2 puff inhalation QID PRN (Reason: Shortness Of Breath Or Wheezing) vitamin B complex Tablet 1 tab PO QAM [id number] Tablet 1 tab PO QAM fluticasone propion-salmeterol 500-50 mcg/dose blister with device 1 ea INHALATION BID albuterol sulfate 90 mcg/actuation HFA aerosol inhaler 2 puff INHALATION Q4 PRN (Reason: Shortness Of Breath Or Wheezing) Discharge Orders: Discharge Order (Routine); Ordered 03/17/22 Ordered By: Ginette Montano Admission Data Admit Date/Time: 03/15/22 20:13 Attending Provider: Faustino Mccoy Admit Provider: Chip Adhikari Primary Care Provider: Jude De La Rosa Other Providers: Sanchez Benites ; Ladarius Maloney ; Brandon Jackson ; [facility] Other Interventions: Discharge Summary Assessment (RN) Last Done: 03/17/22 12:12 Supervising Physician Co-Signing Physician Notes I personally examined the patient and verified all marquez points of history and exam, discussed case, and agree with decision making with Dr Montano. Feels okay and feels up to going home. Presents while Dr. Montano discusses with the patient's daughtershe has concerns about his weakness at home, but does understand that he is doing well enough with PT and OT here that approval for SNF or rehab would likely be impossible. Has close follow-up already scheduled. Vitals noted, in general he is awake and alert pleasant no distress. HEENT normocephalic atraumatic mucous membranes moist. Breathing unlabored no accessory muscle use good effort. Skin shows no rashes no pallor or icterus. Neuro shows chronic appearing weakness. Strokenoted on MRI. Outpatient PT/OT. Overall seems to be largely maximized for secondary risk reductionappreciate neurology recommendations for escalated antiplateletand will have him follow-up with his primary neurologist. While escalating his statin dose could potentially provide more plaque stabilization, with his LDL already at 49, I do worry about increased risk of bleeding. He is not a smoker and his A1c is respectable, he is already on an ARB. Stable for home MS related weaknessoutpatient PT/OT. Dr. Montano empathized with daughter's concerns about his overall weakness, but she also understood that at this point he is not weak enough for us to really be able to get him qualified for an inpatient rehab setting. DVT prophylaxisdual antiplatelet and ambulation utilized during his stay.
--- NOTE | 2022-03-17 17:17 | Billing Data ---
Date of Service March 17, 2022 Coding Level of Care Code D/C DAY MANAGEMENT <30 MINS
== END 2022-03-17 14:04 | disposition home health service (06) | DRG 66 ==
LOC: ED 16:37 → SUATTDRO 20:13 → 2W 20:13

== ENCOUNTER 2022-06-08 16:04 | Inpatient (IN) ==
[2022-06-08 16:51] LABS: Basophils # (auto) 0.05 K/uL (0-0.2); Basophils % (auto) 0.6 %; Eosinophils # (auto) 0.05 K/uL (0-0.50); Eosinophils % (auto) 0.6 %; Hematocrit (blood only) 46.6 % (40.1-51.0); Hemoglobin 16.6 g/dl (14.0-18.0); Immature Granulocytes # (auto) 0.02 K/uL (0.00-0.02); Immature Granulocytes % (auto) 0.2 %; Lymphocytes % (auto) 22.7 %; Mean Corpuscular Hemoglobin 30.2 pg (25.0-34.0); Mean Corpuscular Hgb Conc 35.6 g/dL (32.0-36.0); Mean Corpuscular Volume 84.7 fL (80.0-100.0); Mean Platelet Volume 10.1 fL (9.4-12.4); Monocytes # (auto) 0.76 K/uL (0.24-0.82); Monocytes % (auto) 9.1 %; Neutrophils % (auto) 66.8 %; Platelet Count 193 K/uL (130-400); RDW Coefficient of Variation 12.3 % (11.5-14.5); RDW Standard Deviation 37.3 fL (36.4-46.3); White Blood Count 8.38 K/ul (4.8-10.8)
[2022-06-08 17:11] LABS: Alanine Aminotransferase 16 U/L (7-52); Albumin Globulin Ratio 1.5 (0.9-2); Albumin Level 4.3 gm/dl (3.4-5.0); Alkaline Phosphatase 73 U/L (34-104); Anion Gap 6 (3-11); Aspartate Aminotransferase 15 U/L (13-39); BUN Creatinine Ratio 21.4 (10-20); Bilirubin,Total 1.8 mg/dl (0.2-1.0); Blood Urea Nitrogen 18 mg/dl (6-23); Calcium 9.2 mg/dl (8.5-10.1); Carbon Dioxide 31 mmol/L (21-32); Chloride 102 mmol/L (98-107); Est GFR (African American) 99.3 ml/min; Est GFR (Non-African American) 85.7 ml/min; Globulin 2.8 gm/dl (2.5-4.0); Glucose 113 mg/dl (70-99(Fasting)); Lipase 23 U/L (11-82); Potassium 3.8 mmol/L (3.5-5.1); Sodium 139 mmol/L (136-145); Total Protein 7.1 gm/dl (6.0-8.3)
[2022-06-08] MEDS ORDERED: SODIUM CHLORIDE 0.9% 1000ML 2,000 ML IV ONE (17:25)
[2022-06-08] MEDS ORDERED: METOCLOPRAMIDE HCL INJ 5 MG/ML 2 ML VIAL IV ONE (17:25)
[2022-06-08] MEDS ORDERED: FAMOTIDINE 20MG IV PUSH 20 MG/5 ML SYR IV STA (17:25)
[2022-06-08] MEDS ORDERED: SUCRALFATE 1 GM/10 ML UDC PO STA (17:25)
[2022-06-08 17:26] LABS: Magnesium 2.2 mg/dl (1.7-2.4)
--- NOTE | 2022-06-08 18:05 | XRay Report ---
XR KUB/Abdomen 1 view CLINICAL HISTORY: constipation TECHNIQUE: 1 view of the abdomen was obtained. Comparison: Comparison is made to CT abdomen pelvis 06/07/2022 FINDINGS: Lung bases are unremarkable. Degenerative changes are seen in the visualized skeleton. The bowel gas pattern is nonobstructive. Small stool burden is seen. IMPRESSION: No acute abnormality, in particular no evidence of fecal impaction. ACT 112: Negative or not required by law. Electronically signed by: yAo De Los Santos M.D. 06/08/2022 6:04 PM
[2022-06-08 18:06] LABS: Appearance Urine Cloudy (Clear); Bacteria Urine Automated Negative (Negative); Bilirubin Urine Negative (Negative); Blood Urine Negative (Negative); Color Urine Dark Yellow; Glucose Urine UA Negative (Negative); Ketones Urine Negative (Negative); Leukocyte Esterase Urine Negative (Negative); Nitrite Urine Negative (Negative); Protein Urine Negative (Negative); Specific Gravity Urine 1.024 (1.000-1.030); Urobilinogen Urine Negative (Negative); pH Urine 5.5 (4.5-7.5)
[2022-06-08 18:07] LABS: Troponin I High Sensitivity 9.7 pg/ml (0-20)
[2022-06-08 18:14] LABS: Calcium Oxalate Crystals Urine Present (None Prsent); Mucus Urine Present (None Prsent); RBC Urine Automated 0-4 /hpf (0-4)
[2022-06-08 18:17] LABS: Bilirubin Direct 0.3 mg/dl (0-0.2); Phosphorus 3.4 mg/dl (2.5-4.9)
--- NOTE | 2022-06-08 18:34 | Emergency Department Note ---
Impression & Plan Generalized weakness, Multiple sclerosis, Dehydration, Ambulatory dysfunction, Nausea ED Provider Note NAME: JEANIE PARIS Sr AGE: 76 SEX: M ARRIVES VIA: Walk-In INFORMANT: Patient ED PROVIDER(S): Jair Hinton MD CHIEF COMPLAINT: Weakness, dehydration, placement PLAN: Disposition: Admit MEDICAL DECISION MAKING: The patient is a pleasant 76-year-old gentleman with a past medical history of MS, history of CVA, hypertension, GERD who presents to the emergency department accompanied by his daughter for evaluation of increasing generalized weakness with ongoing nausea after being seen emergency department on Sunday for nausea and vomiting and decreased oral intake where there is concern for dehydration. Patient had a CT scan of the abdomen pelvis that was unremarkable and otherwise demonstrated evidence of mild constipation. His blood work was also unremarkable and he was hydrated with 1 L of normal saline. The patient and his daughter report that he continued to have nausea and therefore has not been eating or drinking much. She reports that with his MS typically is able to ambulate with a walker however now has been too weak to even do that and has needed a wheelchair. They report that they contacted their neurologist and PCP and were instructed to return to the emergency department. Per the daughter's report, they are concerned for dehydration and feel that he will need to be placed in a longterm/nursing home facility. They deny fevers, chills, cough, congestion, urinary symptoms. On evaluation the patient is fatigued appearing but no acute distress, afebrile heart in the 90s and blood pressure 150s/90s and vital signs otherwise stable. He appears clinically dry. He has no focal neurologic deficits. He exhibits generalized weakness throughout with 4/5 strength in all extremities. EKG without overt acute ischemia. WBC, H/H and platelets within normal limits. Chemistry without metabolic acidosis. Bilirubin 1.8 with direct bilirubin 0.3, nonspecific with alk phos within normal limits and LFTs otherwise normal. High-sensitivity troponin 9.7, within normal limits. CPK within normal limits. Lipase not elevated. TSH within normal limits. UA with out convincing evidence of infection. KUB performed and demonstrates evidence of constipation without evidence of obstruction. The patient's daughter expresses concern that the patient needs placed in nursing home facility as he has not been doing well at home and this is the recommendation of his neurologist and primary care doctor and therefore feels this is the only option for the patient. Case was discussed with Dr. Benites [facility] hospitalist, who will evaluate the patient for admission. Triage Nursing notes reviewed and agree them. Prior medical records reviewed Vital Signs: reviewed Differential diagnosis: Infection, dehydration, metabolic abnormality, hypo/hyperglycemia, electrolyte disturbance, anemia, hypoxia, cardiac sources, intracerebral event, toxicologic, neurologic, as well as other pathologies. ER treatment provided: See below. Diagnostics interpreted by me: ECG: Sinus rhythm, 81 bpm, PACs, no overt ST elevation or depression, QTC 473, QS 98 Cardiac Monitoring: An order for continuous cardiac monitoring was placed and demonstrated Sinus rhythm, 81 bpm, PACs. Laboratory studies: See below Imaging studies: See below Consultation(s): Dr. Benites [facility] hospitalist HPI: The patient is a pleasant 76-year-old gentleman with a past medical history of MS, history of CVA, hypertension, GERD who presents to the emergency department accompanied by his daughter for evaluation of increasing generalized weakness with ongoing nausea after being seen emergency department on Sunday for nausea and vomiting and decreased oral intake where there is concern for dehydration. Patient had a CT scan of the abdomen pelvis that was unremarkable and otherwise demonstrated evidence of mild constipation. His blood work was also unremarkable and he was hydrated with 1 L of normal saline. The patient and his daughter report that he continued to have nausea and therefore has not been eating or drinking much. She reports that with his MS typically is able to ambulate with a walker however now has been too weak to even do that and has needed a wheelchair. They report that they contacted their neurologist and PCP and were instructed to return to the emergency department. Per the daughter's report, they are concerned for dehydration and feel that he will need to be placed in a longterm/nursing home facility. They deny fevers, chills, cough, congestion, urinary symptoms. ROS: See above HPI for pertinent positives & negatives. A total of 10 systems reviewed and were otherwise negative. VITALS:See Below PHYSICAL EXAMINATION: GENERAL: Awake, alert, fatigued-appearing, in no distress HENT: Normocephalic, atraumatic. Oropharynx with dry mucous membranes and otherwise unremarkable. EYES: Normal conjunctiva. Sclera non-icteric. EOMI. No nystamgus. PEARRL. NECK: Supple. No nuchal rigidity. FROM. No JVD. RESPIRATORY: Clear to auscultation. CARDIAC: Regular rate, normal rhythm. Extremities warm and well perfused. Pulses equal. ABDOMEN: Soft, non-distended. No tenderness to palpation. No rebound or guarding. No masses. RECTAL: Deferred. MUSCULOSKELETAL: Chest examination reveals no tenderness. The back is symmetrical on inspection without obvious abnormality. There is no CVA tenderness to palpation. No joint edema. LOWER EXTREMITIES: Calves are equal size bilaterally and non-tender. No edema. No discoloration. NEURO: No focal sensory or motor deficits noted. Generalized weakness of all extremities with 4/5 strength. SKIN: No rash or jaundice noted. Jair Hinton MD Past Med/Surg History Medical History Acute foreign body of left ear canal Altered mental status COPD (chronic obstructive pulmonary disease) Depression with anxiety Eyebrow laceration Facial abrasion Fall Lumbar radiculopathy Multiple sclerosis Multiple sclerosis Syncope Tinnitus, bilateral Surgical History History of colonoscopy History of open heart surgery S/P cataract surgery S/P tonsillectomy Family History Father , age 78 of cancer (uncertain type) Hypertension Hearing loss Colorectal cancer Mother , age 81 of cancer (uncertain type) Diabetes Hypertension Hearing loss Stroke Breast cancer Sister Hypertension Hearing loss Breast cancer Grandmother (Paternal) Hypertension Brother Hearing loss Social History Smoking Status: Former smoker Tobacco Type: Cigarettes packs per day: 2; Second Hand Exposure: No; Hx Alcohol Use: No Hx Substance Use: No Preferred Language: Tajik Communication Ability: Effective Visual Impairment: Limited Hearing Ability: Use of Hearing Aid Sorter Pricer Required: No Beliefs That Will Affect Care: None marital status: / Current Living Situation: Family Current Living Situation Comment: Lives with daughter current occupational status: retired and disabled current occupation: Retired maintenance department @ [employer] How many Children do You have: 1 Feels Safe at Home: Yes Seatbelt Use: never Sunscreen Use: No Assistive Devices: Cane, Scooter/Electric Scooter and Wheelchair Allergies Allergies Allergy/AdvReac Type Severity Reaction Status Date / Time latex Allergy Unknown unknown Verified 06/08/22 18:59 adhesive AdvReac Intermediate RASH UNDER Verified 06/08/22 18:59 TAPES Home Meds Home Medications Medication Instructions Recorded Confirmed cholecalciferol (vitamin D3) 125 5,000 unit PO DAILY 09/01/20 06/08/22 mcg (5,000 unit) capsule ipratropium 20 mcg-albuterol 100 2 puff inhalation QID PRN 09/19/21 06/08/22 mcg/actuation mist for inhalation Shortness Of Breath Or Wheezing (Combivent Respimat) docusate sodium 250 mg capsule 250 mg PO HS 06/08/22 06/08/22 mecobalamin (vitamin B12) 1,000 1,000 mcg sublingual DAILY 06/08/22 06/08/22 mcg disintegrating tablet,sublingual Previous Rx's Medication Instructions Recorded polyethylene glycol 3350 17 17 gm PO DAILY PRN constipation 10/14/19 gram/dose oral powder (Miralax) #119 grams aspirin 81 mg tablet,delayed 81 mg PO QAM #90 tabs 03/11/21 release lancets 33 gauge (OneTouch Delica #100 ea 09/27/21 Lancets) blood sugar diagnostic (OneTouch #100 ea 09/29/21 Ultra Test strips) blood-glucose meter (OneTouch #1 ea 09/29/21 Ultra2 Meter kit) quetiapine 100 mg tablet 100 mg PO HS 90 days #90 tabs 09/29/21 metformin 500 mg tablet,extended 500 mg PO QAM #90 tabs 03/20/22 release 24 hr albuterol sulfate 90 mcg/actuation 2 puff inhalation Q4 PRN Shortness 04/11/22 aerosol inhaler Of Breath Or Wheezing #8.5 grams fluticasone 500 mcg-salmeterol 50 1 ea inhalation BID #60 ea 04/11/22 mcg/dose blistr powdr for inhalation miscellaneous medical supply #1 ea 05/05/22 ocrelizumab 30 mg/mL intravenous 600 mg (20 mL) IV .COMPLEX #20 mL 05/10/22 solution (Ocrevus) atorvastatin 40 mg tablet 40 mg PO QPM #90 tabs 05/30/22 clopidogrel 75 mg tablet 75 mg PO DAILY #90 tabs 05/30/22 lansoprazole 30 mg capsule,delayed 30 mg PO QAM #90 caps 05/30/22 release (Prevacid) losartan 25 mg tablet 25 mg PO BID #180 tabs 05/30/22 tolterodine 4 mg capsule,extended 4 mg PO QAM bladder control #90 05/30/22 release 24 hr caps venlafaxine 150 mg 150 mg PO HS 90 days #90 caps 05/30/22 capsule,extended release 24 hr Results & Data (ED) Vital Signs Vital Signs - 24 hr 06/08/22 16:05 06/08/22 16:08 06/08/22 18:41 Temperature 36.5 C Temperature Source Temporal Artery Scan Pulse Rate - Lying 72 Pulse Rate - Sitting 82 Pulse Rate - Standing 80 Pulse Rate 92 H Pulse Rate from SpO2 Sensor Pulse Rhythm Regular Regular Respiratory Rate 20 Respiratory Effort / Characteristics Non-Labored Spontaneous Respiratory Depth Normal Respiratory Pattern Regular Blood Pressure - Lying 168/92 H Blood Pressure - Sitting 160/100 H Blood Pressure- Standing 154/104 H Blood Pressure 155/90 H Blood Pressure Mean 111 Pulse Oximetry 91 Oxygen Delivery Method Room Air Room Air Sepsis Recent Fever Within 48 Hours No Sepsis New/Unexplained Change in Mental Status No Sepsis Action Taken by Nursing No Action Required 06/08/22 17:32 06/08/22 18:00 06/08/22 18:00 Temperature Temperature Source Pulse Rate - Lying Pulse Rate - Sitting Pulse Rate - Standing Pulse Rate 72 64 Pulse Rate from SpO2 Sensor 71 63 Pulse Rhythm Respiratory Rate 27 H 25 H Respiratory Effort / Characteristics Respiratory Depth Respiratory Pattern Blood Pressure - Lying Blood Pressure - Sitting Blood Pressure- Standing Blood Pressure 163/89 H Blood Pressure Mean 113 Pulse Oximetry 96 98 Oxygen Delivery Method Sepsis Recent Fever Within 48 Hours Sepsis New/Unexplained Change in Mental Status Sepsis Action Taken by Nursing 06/08/22 18:30 06/08/22 18:37 06/08/22 18:37 Temperature Temperature Source Pulse Rate - Lying Pulse Rate - Sitting Pulse Rate - Standing Pulse Rate 70 70 Pulse Rate from SpO2 Sensor 70 Pulse Rhythm Respiratory Rate 6 L 21 Respiratory Effort / Characteristics Respiratory Depth Respiratory Pattern Blood Pressure - Lying Blood Pressure - Sitting Blood Pressure- Standing Blood Pressure 168/92 H Blood Pressure Mean 117 Pulse Oximetry 97 Oxygen Delivery Method Sepsis Recent Fever Within 48 Hours Sepsis New/Unexplained Change in Mental Status Sepsis Action Taken by Nursing 06/08/22 18:38 06/08/22 18:39 06/08/22 18:40 Temperature Temperature Source Pulse Rate - Lying Pulse Rate - Sitting Pulse Rate - Standing Pulse Rate 74 Pulse Rate from SpO2 Sensor 77 78 Pulse Rhythm Respiratory Rate 20 Respiratory Effort / Characteristics Respiratory Depth Respiratory Pattern Blood Pressure - Lying Blood Pressure - Sitting Blood Pressure- Standing Blood Pressure 160/100 H Blood Pressure Mean 120 Pulse Oximetry 98 97 Oxygen Delivery Method Sepsis Recent Fever Within 48 Hours Sepsis New/Unexplained Change in Mental Status Sepsis Action Taken by Nursing 06/08/22 18:40 Temperature Temperature Source Pulse Rate - Lying Pulse Rate - Sitting Pulse Rate - Standing Pulse Rate Pulse Rate from SpO2 Sensor Pulse Rhythm Respiratory Rate Respiratory Effort / Characteristics Respiratory Depth Respiratory Pattern Blood Pressure - Lying Blood Pressure - Sitting Blood Pressure- Standing Blood Pressure 154/104 H Blood Pressure Mean 120 Pulse Oximetry Oxygen Delivery Method Sepsis Recent Fever Within 48 Hours Sepsis New/Unexplained Change in Mental Status Sepsis Action Taken by Nursing Laboratory Data Attestation: I reviewed the patient's lab results. 06/08/22 16:31 06/08/22 16:31 Lab Results 06/08/22 06/08/22 06/08/22 Range/Units 16:31 16:31 16:31 WBC 8.38 (4.8-10.8) K/ul RBC 5.50 (4.63-6.08) M/uL Hgb 16.6 (14.0-18.0) g/dl Hct 46.6 (40.1-51.0) % MCV 84.7 (80.0-100.0) fL MCH 30.2 (25.0-34.0) pg MCHC 35.6 (32.0-36.0) g/dL RDW Std Deviation 37.3 (36.4-46.3) fL RDW Coeff of Lilia 12.3 (11.5-14.5) % Plt Count 193 (130-400) K/uL MPV 10.1 (9.4-12.4) fL Immature Gran % (Auto) 0.2 % Neut % (Auto) 66.8 % Lymph % (Auto) 22.7 % [place] % (Auto) 9.1 % Eos % (Auto) 0.6 % Baso % (Auto) 0.6 % Neut # (Auto) 5.60 (1.4-6.5) K/uL Lymph # (Auto) 1.90 (1.2-3.4) K/uL [place] # (Auto) 0.76 (0.24-0.82) K/uL Eos # (Auto) 0.05 (0-0.50) K/uL Baso # (Auto) 0.05 (0-0.2) K/uL Immature Gran # (Auto) 0.02 (0.00-0.02) K/uL Sodium 139 (136-145) mmol/L Potassium 3.8 (3.5-5.1) mmol/L Chloride 102 (98-107) mmol/L Carbon Dioxide 31 (21-32) mmol/L Anion Gap 6 (3-11) BUN 18 (6-23) mg/dl Creatinine 0.84 (0.6-1.4) mg/dl Est Cr Clr Drug Dosing Not Reportable Est GFR ( Amer) 99.3 ml/min Est GFR (Non-Af Amer) 85.7 ml/min BUN/Creatinine Ratio 21.4 H (10-20) Glucose 113 H (70-99(Fasting)) mg/dl Calcium 9.2 (8.5-10.1) mg/dl Phosphorus (2.5-4.9) mg/dl Magnesium (1.7-2.4) mg/dl Total Bilirubin 1.8 H (0.2-1.0) mg/dl Direct Bilirubin (0-0.2) mg/dl AST 15 (13-39) U/L ALT 16 (7-52) U/L Alkaline Phosphatase 73 (34-104) U/L Total Creatine Kinase (30-223) U/L Troponin I High Sens (0-20) pg/ml C-Reactive Protein (0-0.5) mg/dl Total Protein 7.1 (6.0-8.3) gm/dl Albumin 4.3 (3.4-5.0) gm/dl Globulin 2.8 (2.5-4.0) gm/dl Albumin/Globulin Ratio 1.5 (0.9-2) Lipase 23 (11-82) U/L Procalcitonin (0-0.5) ng/ml TSH Cancelled Urine Color Urine Appearance (Clear) Urine pH (4.5-7.5) Ur Specific [place] (1.000-1.030) Urine Protein (Negative) Urine Glucose (UA) (Negative) Urine Ketones (Negative) Urine Blood (Negative) Urine Nitrite (Negative) Urine Bilirubin (Negative) Urine Urobilinogen (Negative) Ur Leukocyte Esterase (Negative) Urine WBC (Auto) (0-5) /hpf Urine RBC (Auto) (0-4) /hpf U Hyaline Cast (Auto) (0-5) /lpf U Epithel Cells (Auto) (0-5) /lpf Urine Bacteria (Auto) (Negative) Urine Crystals Calcium Oxalate Crystal (None Prsent) Urine Mucus (None Prsent) SARS-CoV-2, RNA, NAAT (NEGATIVE) 06/08/22 06/08/22 06/08/22 Range/Units 16:31 16:31 16:31 WBC (4.8-10.8) K/ul RBC (4.63-6.08) M/uL Hgb (14.0-18.0) g/dl Hct (40.1-51.0) % MCV (80.0-100.0) fL MCH (25.0-34.0) pg MCHC (32.0-36.0) g/dL RDW Std Deviation (36.4-46.3) fL RDW Coeff of Lilia (11.5-14.5) % Plt Count (130-400) K/uL MPV (9.4-12.4) fL Immature Gran % (Auto) % Neut % (Auto) % Lymph % (Auto) % [place] % (Auto) % Eos % (Auto) % Baso % (Auto) % Neut # (Auto) (1.4-6.5) K/uL Lymph # (Auto) (1.2-3.4) K/uL [place] # (Auto) (0.24-0.82) K/uL Eos # (Auto) (0-0.50) K/uL Baso # (Auto) (0-0.2) K/uL Immature Gran # (Auto) (0.00-0.02) K/uL Sodium (136-145) mmol/L Potassium (3.5-5.1) mmol/L Chloride (98-107) mmol/L Carbon Dioxide (21-32) mmol/L Anion Gap (3-11) BUN (6-23) mg/dl Creatinine (0.6-1.4) mg/dl Est Cr Clr Drug Dosing Est GFR ( Amer) ml/min Est GFR (Non-Af Amer) ml/min BUN/Creatinine Ratio (10-20) Glucose (70-99(Fasting)) mg/dl Calcium (8.5-10.1) mg/dl Phosphorus (2.5-4.9) mg/dl Magnesium 2.2 (1.7-2.4) mg/dl Total Bilirubin (0.2-1.0) mg/dl Direct Bilirubin (0-0.2) mg/dl AST (13-39) U/L ALT (7-52) U/L Alkaline Phosphatase (34-104) U/L Total Creatine Kinase (30-223) U/L Troponin I High Sens 9.7 (0-20) pg/ml C-Reactive Protein < 0.50 (0-0.5) mg/dl Total Protein (6.0-8.3) gm/dl Albumin (3.4-5.0) gm/dl Globulin (2.5-4.0) gm/dl Albumin/Globulin Ratio (0.9-2) Lipase (11-82) U/L Procalcitonin (0-0.5) ng/ml TSH 0.980 Urine Color Urine Appearance (Clear) Urine pH (4.5-7.5) Ur Specific [place] (1.000-1.030) Urine Protein (Negative) Urine Glucose (UA) (Negative) Urine Ketones (Negative) Urine Blood (Negative) Urine Nitrite (Negative) Urine Bilirubin (Negative) Urine Urobilinogen (Negative) Ur Leukocyte Esterase (Negative) Urine WBC (Auto) (0-5) /hpf Urine RBC (Auto) (0-4) /hpf U Hyaline Cast (Auto) (0-5) /lpf U Epithel Cells (Auto) (0-5) /lpf Urine Bacteria (Auto) (Negative) Urine Crystals Calcium Oxalate Crystal (None Prsent) Urine Mucus (None Prsent) SARS-CoV-2, RNA, NAAT (NEGATIVE) 06/08/22 06/08/22 06/08/22 Range/Units 16:31 17:37 17:54 WBC (4.8-10.8) K/ul RBC (4.63-6.08) M/uL Hgb (14.0-18.0) g/dl Hct (40.1-51.0) % MCV (80.0-100.0) fL MCH (25.0-34.0) pg MCHC (32.0-36.0) g/dL RDW Std Deviation (36.4-46.3) fL RDW Coeff of Lilia (11.5-14.5) % Plt Count (130-400) K/uL MPV (9.4-12.4) fL Immature Gran % (Auto) % Neut % (Auto) % Lymph % (Auto) % [place] % (Auto) % Eos % (Auto) % Baso % (Auto) % Neut # (Auto) (1.4-6.5) K/uL Lymph # (Auto) (1.2-3.4) K/uL [place] # (Auto) (0.24-0.82) K/uL Eos # (Auto) (0-0.50) K/uL Baso # (Auto) (0-0.2) K/uL Immature Gran # (Auto) (0.00-0.02) K/uL Sodium (136-145) mmol/L Potassium (3.5-5.1) mmol/L Chloride (98-107) mmol/L Carbon Dioxide (21-32) mmol/L Anion Gap (3-11) BUN (6-23) mg/dl Creatinine (0.6-1.4) mg/dl Est Cr Clr Drug Dosing Est GFR ( Amer) ml/min Est GFR (Non-Af Amer) ml/min BUN/Creatinine Ratio (10-20) Glucose (70-99(Fasting)) mg/dl Calcium (8.5-10.1) mg/dl Phosphorus 3.4 (2.5-4.9) mg/dl Magnesium (1.7-2.4) mg/dl Total Bilirubin (0.2-1.0) mg/dl Direct Bilirubin 0.3 H (0-0.2) mg/dl AST (13-39) U/L ALT (7-52) U/L Alkaline Phosphatase (34-104) U/L Total Creatine Kinase 63 (30-223) U/L Troponin I High Sens (0-20) pg/ml C-Reactive Protein (0-0.5) mg/dl Total Protein (6.0-8.3) gm/dl Albumin (3.4-5.0) gm/dl Globulin (2.5-4.0) gm/dl Albumin/Globulin Ratio (0.9-2) Lipase (11-82) U/L Procalcitonin < 0.05 (0-0.5) ng/ml TSH Urine Color Dark Yellow Urine Appearance Cloudy A (Clear) Urine pH 5.5 (4.5-7.5) Ur Specific [place] 1.024 (1.000-1.030) Urine Protein Negative (Negative) Urine Glucose (UA) Negative (Negative) Urine Ketones Negative (Negative) Urine Blood Negative (Negative) Urine Nitrite Negative (Negative) Urine Bilirubin Negative (Negative) Urine Urobilinogen Negative (Negative) Ur Leukocyte Esterase Negative (Negative) Urine WBC (Auto) 1-5 (0-5) /hpf Urine RBC (Auto) 0-4 (0-4) /hpf U Hyaline Cast (Auto) 1-5 (0-5) /lpf U Epithel Cells (Auto) 10-20 H (0-5) /lpf Urine Bacteria (Auto) Negative (Negative) Urine Crystals Not Reportable Calcium Oxalate Crystal Present A (None Prsent) Urine Mucus Present A (None Prsent) SARS-CoV-2, RNA, NAAT (NEGATIVE) 06/08/22 Range/Units 18:52 WBC (4.8-10.8) K/ul RBC (4.63-6.08) M/uL Hgb (14.0-18.0) g/dl Hct (40.1-51.0) % MCV (80.0-100.0) fL MCH (25.0-34.0) pg MCHC (32.0-36.0) g/dL RDW Std Deviation (36.4-46.3) fL RDW Coeff of Lilia (11.5-14.5) % Plt Count (130-400) K/uL MPV (9.4-12.4) fL Immature Gran % (Auto) % Neut % (Auto) % Lymph % (Auto) % [place] % (Auto) % Eos % (Auto) % Baso % (Auto) % Neut # (Auto) (1.4-6.5) K/uL Lymph # (Auto) (1.2-3.4) K/uL [place] # (Auto) (0.24-0.82) K/uL Eos # (Auto) (0-0.50) K/uL Baso # (Auto) (0-0.2) K/uL Immature Gran # (Auto) (0.00-0.02) K/uL Sodium (136-145) mmol/L Potassium (3.5-5.1) mmol/L Chloride (98-107) mmol/L Carbon Dioxide (21-32) mmol/L Anion Gap (3-11) BUN (6-23) mg/dl Creatinine (0.6-1.4) mg/dl Est Cr Clr Drug Dosing Est GFR ( Amer) ml/min Est GFR (Non-Af Amer) ml/min BUN/Creatinine Ratio (10-20) Glucose (70-99(Fasting)) mg/dl Calcium (8.5-10.1) mg/dl Phosphorus (2.5-4.9) mg/dl Magnesium (1.7-2.4) mg/dl Total Bilirubin (0.2-1.0) mg/dl Direct Bilirubin (0-0.2) mg/dl AST (13-39) U/L ALT (7-52) U/L Alkaline Phosphatase (34-104) U/L Total Creatine Kinase (30-223) U/L Troponin I High Sens (0-20) pg/ml C-Reactive Protein (0-0.5) mg/dl Total Protein (6.0-8.3) gm/dl Albumin (3.4-5.0) gm/dl Globulin (2.5-4.0) gm/dl Albumin/Globulin Ratio (0.9-2) Lipase (11-82) U/L Procalcitonin (0-0.5) ng/ml TSH Urine Color Urine Appearance (Clear) Urine pH (4.5-7.5) Ur Specific [place] (1.000-1.030) Urine Protein (Negative) Urine Glucose (UA) (Negative) Urine Ketones (Negative) Urine Blood (Negative) Urine Nitrite (Negative) Urine Bilirubin (Negative) Urine Urobilinogen (Negative) Ur Leukocyte Esterase (Negative) Urine WBC (Auto) (0-5) /hpf Urine RBC (Auto) (0-4) /hpf U Hyaline Cast (Auto) (0-5) /lpf U Epithel Cells (Auto) (0-5) /lpf Urine Bacteria (Auto) (Negative) Urine Crystals Calcium Oxalate Crystal (None Prsent) Urine Mucus (None Prsent) SARS-CoV-2, RNA, NAAT NEGATIVE (NEGATIVE) Administered Medications Atorvastatin Calcium (Atorvastatin 40 Mg Tab) 40 mg PO QPM MUKUL Stop: 07/08/22 20:59 Last Admin: 06/08/22 20:50 Dose: 40 mg Documented By: KARISHMA Fluticasone/Vilanterol (Fluticasone/Vilanterol 100/25mcg 14 Puffs/Inhaler) 1 puffs INH DAILY MUKUL Stop: 07/08/22 19:44 Last Admin: 06/08/22 20:49 Dose: Not Given Documented By: KARISHMA Lactated Ringer's (Lr) 1,000 mls @ 80 mls/hr IV .[id number] MUKUL Stop: 06/09/22 07:44 Last Admin: 06/08/22 19:30 Dose: 80 mls/hr Documented By: LEON Losartan Potassium (Losartan Potassium 25 Mg Tab) 25 mg PO BID MUKUL Stop: 07/08/22 20:59 Last Admin: 06/08/22 20:50 Dose: 25 mg Documented By: KARISHMA Quetiapine Fumarate (Quetiapine Fumarate 100 Mg Tablet) 100 mg PO [facility] Stop: 07/08/22 20:59 Last Admin: 06/08/22 20:50 Dose: 100 mg Documented By: KARISHMA Venlafaxine HCl (Venlafaxine Hcl Xr 150 Mg Capxr) 150 mg PO [facility] Stop: 07/08/22 20:59 Last Admin: 06/08/22 20:49 Dose: 150 mg Documented By: KARISHMA Discontinued Medications Sodium Chloride (Nss 1000ml) 2,000 mls @ 999 mls/hr IV .Q2H1M ONE Stop: 06/08/22 19:25 Last Infusion: 06/08/22 21:10 Dose: 0 mls/hr Documented By: Admin: 06/08/22 17:40 Dose: 999 mls/hr Documented By: LEON Famotidine (Pepcid 20mg Iv Push) 20 mg in 5 mls @ 2.5 mls/min IV NOW STA Stop: 06/08/22 17:26 Last Admin: 06/08/22 17:39 Dose: 2.5 mls/min Documented By: LEON Metoclopramide HCl (Metoclopramide Hcl Inj 5 Mg/Ml 2 Ml Vial) 5 mg IV ONE ONE Stop: 06/08/22 17:26 Last Admin: 06/08/22 17:39 Dose: 5 mg Documented By: LEON Sucralfate (Sucralfate 1 Gm/10 Ml Udc) 1 gm PO NOW STA Stop: 06/08/22 17:26 Last Admin: 06/08/22 17:45 Dose: 1 gm Documented By: LEON Imaging Data Radiologist's Impression: KUB X-Ray 06/08/22 17:28 XR KUB/Abdomen 1 view CLINICAL HISTORY: constipation TECHNIQUE: 1 view of the abdomen was obtained. Comparison: Comparison is made to CT abdomen pelvis 06/07/2022 FINDINGS: Lung bases are unremarkable. Degenerative changes are seen in the visualized skeleton. The bowel gas pattern is nonobstructive. Small stool burden is seen. IMPRESSION: No acute abnormality, in particular no evidence of fecal impaction. ACT 112: Negative or not required by law. Electronically signed by: Ayo De Los Santos M.D. 06/08/2022 6:04 PM Discharge Plan Visit Data Chief Complaint: Illness Stated Complaint: ILLNESS ED Provider: Jair Hinton Discharge Problem: Generalized weakness, Multiple sclerosis, Dehydration, Ambulatory dysfunction, Nausea Discharge Instructions Interventions: ED Discharge Assessment Last Done: 06/08/22 19:51
--- NOTE | 2022-06-08 18:41 | History & Physical Report ---
Date of Service June 08, 2022 Assessment & Plan (1) Weakness: Plan: 76-year-old male with past medical history of MS, CVA, DM 2, hypertension, depression, GERD, overactive bladder who presents with continued progressive global weakness and decline and poor appetite. Was recently seen in the hospital, no infectious etiology was found was given fluids and discharged home. Patient is continue to have a poor appetite, although without nausea/vomiting or abdominal pain, and feels globally weak. Patient reports he feels overall just wiped out and more weak, no particular areas. Weakness, generalized decline. Mild hypokalemia on admission With history of MS of the brain and spine and lacunar infarcts last noted 03/2022 Patient denies focal weakness on exam or vision change, but notes he is just not hungry and feels more weak. Daughter request evaluation and consideration of [facility] due to his difficulty ambulating with available services at home Recently seen for nausea, also reported nausea and ER provider but reported this was not present at time of hospitalist assessment. We will continue PPI and history of GERD and ongoing reports of nausea On exam no vision change. Extremity strength is actually with normal tumbler tender strength bilaterally, 4+ hip strength with slightly more difficulty elevating the left leg from bedside but able to resist force against gravity, and normal ankle dorsiflexion/plantarflexion with intact soft touch bilaterally. Slight left arm resting tremor. Denies infectious symptoms including dysuria, cough, fever/night sweats. Does generally feel cold but this has not changed recently. No leukocytosis, hemoglobin normal, creatinine is not elevated BUN/creatinine ratio slightly elevated suggesting some volume depletion. Supportive care, will give additional 1 L of fluid and encourage p.o. No transaminitis, no acute EKG changes, troponin is not elevated, TSH is normal Received Reglan/Pepcid in ER. Patient denies that he is having actual stomach pain/upset at time of assessment, notes he is just generally not hungry. Follow clinically, can continue antiemetics and famotidine if he gets benefit from these. Alex Heck for appetite stimulation. Nutrition consult placed Phosphorus/magnesium pending KUB without significant fecal impaction MS With recent MRI showing no spinal/brain involvement On every 6 months ocrelizumab last received 1 month ago. No recent steroid treatment Recent follow-up with neurology, do not suspect that this is an MS flare. If clinical suspicion rises or focal deficits repeat MRI History of CVA No new deficits, no focal deficits on neuro exam Continue aspirin, Plavix, statin Depression/anxiety Continue venlafaxine, Seroquel COPD Lungs are without significant wheezing on evaluation, patient denies sputum change in cough. No evidence of acute exacerbation on admission Continue Advair, albuterol as needed Hypertension Continue losartan History of type II DM, on metformin monotherapy Last A1c approximately 5% Glucose 113 Given low glucose, poor p.o. intake, and A1c less than 6% will defer SSI therapy at this time for risk of hypoglycemia. If rising greater than 140 fasting or 180 postprandial add very conservative weight-based SSI at that point DVT prophylaxis: SCDs, dose reduced Lovenox given age/BMI and DAPT Diet: Regular, nutrition consult placed. Aspiration precautions. Disposition: Medical/surgical CODE STATUS: DNR/DNI (2) Carotid stenosis, left: (3) Acute CVA (cerebrovascular accident): (4) Gastro-esophageal reflux: (5) Muscle weakness (generalized): (6) Multiple sclerosis: History of Present Illness Primary Care Provider: Jude De La Rosa MD Needs placement. Followed with PCP/Neuro Hammad is seen at the bedside with his Was in a few days ago for 3 days of vomiting. Was seen in the ER, got an IV bag of fluid and went home Talked to Dr. Leon and Dr. Jackson. Recommended beign seen in ER due to continued progressive failure to thrive with decreasing appetite and PO intake and weakness. Minimal PO intake, pt with reduced appetite. Only taking a gatorade and some sips per day. Denies hunger, nausea, and vomiting at bedside, has been seen for some nausea limiting appetite previously and in the past week. Overall patient reports just not hungry Discussed as outpt w/ neurology. Do not think its 2/2 a MS flare, but rather chronic decline with hx of high medical burden, recent strokes, and overall poor intake Long periods without showing due to poor strength but does not want hep from caregivers No pain. No fevers, chills, sweats, vomiting/diarrhea. Recommended for contineud care at [facility] by outpt providers, could not continue care at home and came to the ER for assistance. No lab abnormalities For MS takes Orcavest last may, not due for 5 months No recent steroids in last few months Eval in end Oct, no evidence of flare contributing to decline MS flares typically with greatly increased strength overall and difficulty with walker, and some 'floaters' in vision. None of these currently, did have a retinal tear with was repaired in [place], no problems since. Following wih Dr. Gomes and Dr. Dickerson. No urinary sx +cold, but no fevers/sweats. No cough. No congestion No chest pain, no chest pressure Medical History: Reviewed Medications: Reviewed Surgical History: Reviewed Allergies: Reviewed Social History: Former smoker 25 years ago. No alcohol. Code Status: DNR/DNI. Allergies Allergy/AdvReac Type Severity Reaction Status Date / Time latex Allergy Unknown unknown Verified 06/08/22 18:59 adhesive AdvReac Intermediate RASH UNDER Verified 06/08/22 18:59 TAPES Home Medications Medication Instructions Recorded Confirmed Type polyethylene glycol 3350 17 17 gm PO DAILY PRN constipation 10/14/19 06/08/22 Rx gram/dose oral powder (Miralax) #119 grams cholecalciferol (vitamin D3) 125 5,000 unit PO DAILY 09/01/20 06/08/22 History mcg (5,000 unit) capsule aspirin 81 mg tablet,delayed 81 mg PO QAM #90 tabs 03/11/21 06/08/22 Rx release ipratropium 20 mcg-albuterol 100 2 puff inhalation QID PRN 09/19/21 03/23/22 History mcg/actuation mist for inhalation Shortness Of Breath Or Wheezing (Combivent Respimat) lancets 33 gauge (OneTouch Delica #100 ea 09/27/21 03/23/22 Rx Lancets) blood sugar diagnostic (OneTouch #100 ea 09/29/21 03/23/22 Rx Ultra Test strips) blood-glucose meter (ZefanclubTouch #1 ea 09/29/21 03/23/22 Rx Ultra2 Meter kit) quetiapine 100 mg tablet 100 mg PO HS 90 days #90 tabs 09/29/21 06/08/22 Rx metformin 500 mg tablet,extended 500 mg PO QAM #90 tabs 03/20/22 06/08/22 Rx release 24 hr albuterol sulfate 90 mcg/actuation 2 puff inhalation Q4 PRN Shortness 04/11/22 06/08/22 Rx aerosol inhaler Of Breath Or Wheezing #8.5 grams fluticasone 500 mcg-salmeterol 50 1 ea inhalation BID #60 ea 04/11/22 06/08/22 Rx mcg/dose blistr powdr for inhalation miscellaneous medical supply #1 ea 05/05/22 Rx ocrelizumab 30 mg/mL intravenous 600 mg (20 mL) IV .COMPLEX #20 mL 05/10/22 06/08/22 Rx solution (Ocrevus) atorvastatin 40 mg tablet 40 mg PO QPM #90 tabs 05/30/22 06/08/22 Rx clopidogrel 75 mg tablet 75 mg PO DAILY #90 tabs 05/30/22 06/08/22 Rx lansoprazole 30 mg capsule,delayed 30 mg PO QAM #90 caps 05/30/22 06/08/22 Rx release (Prevacid) losartan 25 mg tablet 25 mg PO BID #180 tabs 05/30/22 06/08/22 Rx tolterodine 4 mg capsule,extended 4 mg PO QAM bladder control #90 05/30/22 06/08/22 Rx release 24 hr caps venlafaxine 150 mg 150 mg PO HS 90 days #90 caps 05/30/22 06/08/22 Rx capsule,extended release 24 hr docusate sodium 250 mg capsule 250 mg PO HS 06/08/22 06/08/22 History mecobalamin (vitamin B12) 1,000 1,000 mcg sublingual DAILY 06/08/22 06/08/22 History mcg disintegrating tablet,sublingual Past Med/Surg History Medical History Acute foreign body of left ear canal Altered mental status COPD (chronic obstructive pulmonary disease) Depression with anxiety Eyebrow laceration Facial abrasion Fall Lumbar radiculopathy Multiple sclerosis Multiple sclerosis Syncope Tinnitus, bilateral Surgical History History of colonoscopy History of open heart surgery S/P cataract surgery S/P tonsillectomy Family History Father , age 78 of cancer (uncertain type) Hypertension Hearing loss Colorectal cancer Mother , age 81 of cancer (uncertain type) Diabetes Hypertension Hearing loss Stroke Breast cancer Sister Hypertension Hearing loss Breast cancer Grandmother (Paternal) Hypertension Brother Hearing loss Social History Smoking Status: Former smoker Tobacco Type: Cigarettes packs per day: 2; Second Hand Exposure: No; Hx Alcohol Use: No Hx Substance Use: No Preferred Language: Armenian Communication Ability: Effective Visual Impairment: Limited Hearing Ability: Use of Hearing Aid Bottle Hop Required: No Beliefs That Will Affect Care: None marital status: / Current Living Situation: Family Current Living Situation Comment: Lives with daughter current occupational status: retired and disabled current occupation: Retired maintenance department @ [employer] How many Children do You have: 1 Feels Safe at Home: Yes Seatbelt Use: never Sunscreen Use: No Assistive Devices: Cane, Scooter/Electric Scooter and Wheelchair Review of Systems Review of Systems: All systems reviewed & are unremarkable except as noted in HPI & below Physical Exam Physical Exam: General: A&Ox3. NAD. Cooperative. HEENT: Atraumatic, normocephalic. PERLLA. Vision/hearing intact. MM tacky. T ongue protrudes midline. Pulm: Diminished. -wheezes, -rales, -rhonchi. Symmetrical chest rise. No increased work of breathing. No respiratory distress. Cardiac: RRR, -mrg. Radial pulses intact and symmetrical. Abdominal: Nontender, nondistended, soft. BS present. CRANIAL NERVES: II: Pupils equal and reactive, no relative afferent pupillary defect, no VF cuts III, IV, : EOM intact, no gaze preference or deviation, no nystagmus. V: normal sensation in V1, V2, and V3 segments bilaterally VII: no asymmetry, no nasolabial fold flattening VIII: normal hearing to speech IX, X: normal palatal elevation, no uvular deviation XI: 5/5 head turn and 5/5 shoulder shrug bilaterally XII: midline tongue protrusion MOTOR: RUE: 5/5 Elbow flexion/extension, wrist flexion/extension 5/5 tumbler tender strength, finger flexion/extension, interosseus LUE: 5/5 Elbow flexion/extension, wrist flexion/extension 5/5 tumbler tender strength, finger flexion/extension, interosseus RLE: 4+/5 to hip flexion, 5/5 ankle dorsiflexion/plantarflexion LLE: 4+/5 to hip flexion, 5/5 ankle dorsiflexion/plantarflexion REFLEXES: 2/4 patellar, bicepts, and achilles DTR without asymmetry. Bilateral flexor planter response, no Espinosa's, no clonus SENSORY: Normal to touch in upper and lower extremities without deficit or asymmetry No hemineglect, no extinction to double sided stimulation (visual & tactile) Romberg absent COORD: On exam no vision change. Extremity strength is actually with normal tumbler tender strength bilaterally, 4+ hip strength with slightly more difficulty elevating the left leg from bedside but able to resist force against gravity, and normal ankle dorsiflexion/plantarflexion with intact soft touch bilaterally. Slight left arm resting tremor. Results & Data Results & Data ([facility]) Vital Signs (Past 12 Hours) Vital Signs Temp Pulse Resp BP Pulse Ox O2 Del Method 06/08/22 16:08 Room Air 06/08/22 16:05 36.5 C 92 H 20 155/90 H 91 Room Air PG Care Time/CCT Total # of Minutes Spent Total Time Spent with Patient: Total time spent is greater than 50% in coordination of care (as documented) at patient's floor/unit and/or counseling patient: Coding Level of Care Code 63330 INT INP/OBS CARE 2/55MIN Diagnoses Weakness R53.1 Carotid stenosis, left I65.22 Acute CVA (cerebrovascular accident) I63.9 Gastro-esophageal reflux K21.9 Esophagitis presence: esophagitis presence not specified Muscle weakness (generalized) M62.81 Multiple sclerosis G35 (1) Gastro-esophageal reflux Esophagitis presence: esophagitis presence not specified Qualified Code(s): K21.9 - Gastro-esophageal reflux disease without esophagitis
[2022-06-08] MEDS ORDERED: ALBUTEROL HFA 8 GM INHALER INH PRN (19:12)
[2022-06-08] MEDS ORDERED: LACTATED RINGER'S 1,000 ML IV SCH (19:15)
[2022-06-08] MEDS ORDERED: ACETAMINOPHEN 325 MG TAB PO PRN (19:43)
[2022-06-08] MEDS: VENLAFAXINE HCL XR 150 MG CAPXR PO SCH (20:49)
[2022-06-08] MEDS: FLUTICASONE/VILANTEROL 100/25MCG 14 PUFFS/INHALER INH SCH (20:49)
[2022-06-08] MEDS: ATORVASTATIN 40 MG TAB PO SCH (20:50)
[2022-06-08] MEDS: QUEtiapine FUMARATE 100 MG TABLET PO SCH (20:50)
[2022-06-08] MEDS: LOSARTAN POTASSIUM 25 MG TAB PO SCH (20:50)
[2022-06-08] MEDS: FAMOTIDINE 20 MG in SYRINGE 3 ML IV SCH (23:32)
[2022-06-09 06:43] LABS: Hematocrit (blood only) 36.4 % (40.1-51.0); Mean Corpuscular Hemoglobin 30.7 pg (25.0-34.0); Mean Corpuscular Hgb Conc 35.7 g/dL (32.0-36.0); Mean Corpuscular Volume 85.8 fL (80.0-100.0); Mean Platelet Volume 10.3 fL (9.4-12.4); Platelet Count 139 K/uL (130-400); RDW Coefficient of Variation 12.3 % (11.5-14.5); Red Blood Count 4.24 M/uL (4.63-6.08); White Blood Count 6.57 K/ul (4.8-10.8)
[2022-06-09 06:51] LABS: Basophils # (auto) 0.03 K/uL (0-0.2); Basophils % (auto) 0.5 %; Eosinophils # (auto) 0.15 K/uL (0-0.50); Eosinophils % (auto) 2.3 %; Immature Granulocytes # (auto) 0.02 K/uL (0.00-0.02); Immature Granulocytes % (auto) 0.3 %; Lymphocytes # (auto) 1.86 K/uL (1.2-3.4); Lymphocytes % (auto) 28.3 %; Monocytes # (auto) 0.83 K/uL (0.24-0.82); Monocytes % (auto) 12.6 %; Neutrophils # (auto) 3.68 K/uL (1.4-6.5)
[2022-06-09 06:55] LABS: BUN Creatinine Ratio 24.3 (10-20); Calcium 7.9 mg/dl (8.5-10.1); Creatinine Clr Calc Pharmacy 94.7 ml/min; Est GFR (African American) 104.6 ml/min; Est GFR (Non-African American) 90.2 ml/min; Magnesium 1.9 mg/dl (1.7-2.4); Phosphorus 3.6 mg/dl (2.5-4.9)
[2022-06-09] MEDS: PANTOprazole 40 MG TAB PO SCH (09:51)
[2022-06-09] MEDS: TOLTERODINE TARTRATE LA 4 MG CAPCR PO SCH (09:51)
[2022-06-09] MEDS ORDERED: POTASSIUM CHLORIDE CRTAB 20 MEQ TABCR PO STA (10:46)
[2022-06-09] MEDS: FAMOTIDINE 20 MG in SYRINGE 3 ML IV SCH ×2 (10:57→20:42)
[2022-06-09] MEDS: FLUTICASONE/VILANTEROL 100/25MCG 14 PUFFS/INHALER INH SCH (10:57)
[2022-06-09] MEDS: CLOPIDOGREL BISULFATE 75 MG TAB PO SCH (10:58)
[2022-06-09] MEDS: ASPIRIN 81 MG ECTAB PO SCH (10:58)
[2022-06-09] MEDS: ENOXAPARIN INJ 30 MG/0.3 ML SYR SQ SCH ×2 (10:59→20:46)
[2022-06-09] MEDS: LOSARTAN POTASSIUM 25 MG TAB PO SCH ×2 (10:59→20:43)
--- NOTE | 2022-06-09 15:10 | Hospitalist Progress Note ---
Date of Service June 09, 2022 Assessment & Plan (1) Weakness: Plan: 76-year-old male with past medical history of MS, CVA, DM 2, hypertension, depression, GERD, overactive bladder who presents with continued progressive global weakness and decline and poor appetite. Was recently seen in the hospital, no infectious etiology was found was given fluids and discharged home. Patient is continue to have a poor appetite, although without nausea/vomiting or abdominal pain, and feels globally weak. Patient reports he feels overall just wiped out and more weak, no particular areas. Weakness, generalized decline. Most likely deconditioning No evidence of MS flare up and no evidence of new stroke on MRI (2) Multiple sclerosis: Plan: MS With recent MRI showing no spinal/brain involvement On every 6 months ocrelizumab last received 1 month ago. No recent steroid treatment Recent follow-up with neurology, do not suspect that this is an MS flare. If clinical suspicion rises or focal deficits repeat MRI (3) Acute CVA (cerebrovascular accident): Plan: History of CVA No new deficits, no focal deficits on neuro exam Continue aspirin, Plavix, statin (4) Diabetes: Plan: History of type II DM, on metformin monotherapy Last A1c approximately 5% Glucose 113 Given low glucose, poor p.o. intake, and A1c less than 6% will defer SSI therapy at this time for risk of hypoglycemia. If rising greater than 140 fasting or 180 postprandial add very conservative weight-based SSI at that point (5) Muscle weakness (generalized): Plan: most likely deconditioning (6) Hypertension: Plan: BP stable Continue losartan (7) COPD (chronic obstructive pulmonary disease): Plan: COPD Lungs are without significant wheezing on evaluation, patient denies sputum change in cough. No evidence of acute exacerbation on admission Continue Advair, albuterol as needed (8) Gastro-esophageal reflux: (9) Carotid stenosis, left: Plan DVT prophylaxis: SCDs, dose reduced Lovenox given age/BMI and DAPT Diet: Regular, nutrition consult placed. Aspiration precautions. Disposition: awaiting placement in SNF CODE STATUS: DNR/DNI Admission and Anticipated Discharge Date Admission Date: June 08, 2022 Subjective patient seen and examined, no new complaints Review of Systems Review of Systems: All systems reviewed are negative, apart from the ones contained in the history. Physical Exam Physical Exam: The patient is awake, alert and oriented 3, well developed and well nourished, normocephalic and atraumatic, lying in bed and in no acute distress. HEENT--PERRL, EOMI, mucous membranes and oropharynx mildly dry Neck--supple. No JVD. No bruits. Thyroid normal, trachea midline, no adenopa thy. Heart--normal S1 and S2. No murmurs, rubs or gallops. Lungs--clear bilaterally, no respiratory distress, no accessory muscle use. Abdomen--normal bowel sounds and soft. Mild epigastric and left sided abdominal pain Extremities--no cyanosis or clubbing. No edema. Dermatologic--normal skin turgor, normal color, no abnormal lymph nodes, no rash. Neurologic--cranial nerves II through XII grossly intact. Rheumatologic--normal range of motion. Psychiatric--normal affect. Results & Data Results & Data ([facility]) Vital Signs (Past 12 Hours) Vital Signs Temp Pulse Resp BP Pulse Ox O2 Del Method 06/09/22 07:25 Room Air 06/09/22 07:41 97.7 F 64 16 148/81 H 94 Room Air PG Care Time/CCT Total # of Minutes Spent Total Time Spent with Patient: Total time spent is greater than 50% in coordination of care (as documented) at patient's floor/unit and/or counseling patient: Coding Level of Care Code 99036 SUB INP/OBS CARE 2/35MIN Diagnoses Weakness R53.1 Multiple sclerosis G35 Acute CVA (cerebrovascular accident) I63.9 Diabetes E11.9 Muscle weakness (generalized) M62.81 Hypertension I10 Hypertension type: essential hypertension COPD (chronic obstructive pulmonary disease) J44.9 COPD type: unspecified COPD Gastro-esophageal reflux K21.9 Esophagitis presence: esophagitis presence not specified Carotid stenosis, left I65.22 Time Spent (min) 35 (1) Gastro-esophageal reflux Esophagitis presence: esophagitis presence not specified Qualified Code(s): K21.9 - Gastro-esophageal reflux disease without esophagitis (2) Hypertension Hypertension type: essential hypertension Qualified Code(s): I10 - Essential (primary) hypertension (3) COPD (chronic obstructive pulmonary disease) COPD type: unspecified COPD Qualified Code(s): J44.9 - Chronic obstructive pulmonary disease, unspecified
--- NOTE | 2022-06-09 15:53 | Electrocardiogram Report ---
Test Reason : Blood Pressure : / mmHG Vent. Rate : 081 BPM Atrial Rate : 081 BPM P-R Int : 156 ms QRS Dur : 098 ms QT Int : 408 ms P-R-T Axes : 070 020 053 degrees QTc Int : 473 ms Sinus rhythm with Premature atrial complexes Otherwise normal ECG When compared with ECG of 07-JUN-2022 04:24, No significant change was found Confirmed by Darryn Spencer [id number]) on 06/09/2022 3:52:39 PM Referred By: REFERRED SELF Confirmed By:Darryn Spencer
[2022-06-09] MEDS: VENLAFAXINE HCL XR 150 MG CAPXR PO SCH (20:43)
[2022-06-09] MEDS: QUEtiapine FUMARATE 100 MG TABLET PO SCH (20:43)
[2022-06-09] MEDS: ATORVASTATIN 40 MG TAB PO SCH (20:46)
[2022-06-10 06:44] LABS: Hemoglobin 13.2 g/dl (14.0-18.0); Mean Corpuscular Hemoglobin 30.8 pg (25.0-34.0); Mean Corpuscular Hgb Conc 36.7 g/dL (32.0-36.0); Mean Corpuscular Volume 84.1 fL (80.0-100.0); Mean Platelet Volume 10.3 fL (9.4-12.4); Platelet Count 148 K/uL (130-400); RDW Coefficient of Variation 12.3 % (11.5-14.5); RDW Standard Deviation 37.7 fL (36.4-46.3); Red Blood Count 4.28 M/uL (4.63-6.08); White Blood Count 5.63 K/ul (4.8-10.8)
[2022-06-10 07:12] LABS: BUN Creatinine Ratio 22.1 (10-20); Calcium 7.9 mg/dl (8.5-10.1); Creatinine Clr Calc Pharmacy 81.5 ml/min; Est GFR (African American) 98.3 ml/min; Est GFR (Non-African American) 84.8 ml/min; Potassium 3.5 mmol/L (3.5-5.1)
[2022-06-10] MEDS: TOLTERODINE TARTRATE LA 4 MG CAPCR PO SCH (08:23)
[2022-06-10] MEDS: CLOPIDOGREL BISULFATE 75 MG TAB PO SCH (08:23)
[2022-06-10] MEDS: PANTOprazole 40 MG TAB PO SCH (08:23)
[2022-06-10] MEDS: LOSARTAN POTASSIUM 25 MG TAB PO SCH ×2 (08:23→21:32)
[2022-06-10] MEDS: ENOXAPARIN INJ 30 MG/0.3 ML SYR SQ SCH ×2 (08:24→21:31)
[2022-06-10] MEDS: ASPIRIN 81 MG ECTAB PO SCH ×2 (08:24→12:48)
[2022-06-10] MEDS: FLUTICASONE/VILANTEROL 100/25MCG 14 PUFFS/INHALER INH SCH (08:24)
[2022-06-10] MEDS: FAMOTIDINE 20 MG in SYRINGE 3 ML IV SCH ×2 (08:30→21:31)
[2022-06-10] MEDS ORDERED: POLYETHYLENE (MIRALAX) 17 GM PACK PO ONE (10:45)
--- NOTE | 2022-06-10 13:51 | Hospitalist Progress Note ---
Date of Service June 10, 2022 Assessment & Plan (1) Weakness: Plan: 76-year-old male with past medical history of MS, CVA, DM 2, hypertension, depression, GERD, overactive bladder who presents with continued progressive global weakness and decline and poor appetite. Was recently seen in the hospital, no infectious etiology was found was given fluids and discharged home. -Weakness, generalized decline. Most likely deconditioning -No evidence of MS flare up and no evidence of new stroke on MRI -Participating in PT -Awaiting SNF (2) Multiple sclerosis: Plan: MS With recent MRI showing no spinal/brain involvement On every 6 months ocrelizumab last received 1 month ago. No recent steroid treatment Recent follow-up with neurology, do not suspect that this is an MS flare. If clinical suspicion rises or focal deficits repeat MRI (3) Acute CVA (cerebrovascular accident): Plan: History of CVA No new deficits, no focal deficits on neuro exam Continue aspirin, Plavix, statin (4) Diabetes: Plan: History of type II DM, on metformin monotherapy Last A1c approximately 5% Glucose 113 Given low glucose, poor p.o. intake, and A1c less than 6% will defer SSI therapy at this time for risk of hypoglycemia. If rising greater than 140 fasting or 180 postprandial add very conservative weight-based SSI at that point (5) Muscle weakness (generalized): Plan: most likely deconditioning (6) Hypertension: Plan: BP stable Continue losartan (7) COPD (chronic obstructive pulmonary disease): Plan: COPD Lungs are without significant wheezing on evaluation, patient denies sputum change in cough. No evidence of acute exacerbation on admission Continue Advair, albuterol as needed (8) Gastro-esophageal reflux: (9) Carotid stenosis, left: Plan DVT prophylaxis: SCDs, dose reduced Lovenox given age/BMI and DAPT Diet: Regular, nutrition consult placed. Aspiration precautions. Disposition: awaiting placement in SNF CODE STATUS: DNR/DNI Admission and Anticipated Discharge Date Admission Date: June 09, 2022 Subjective patient seen and examined, no new complaints, participating in PT Review of Systems Review of Systems: All systems reviewed are negative, apart from the ones contained in the history. Physical Exam Physical Exam: The patient is awake, alert and oriented 3, well developed and well nourished, normocephalic and atraumatic, lying in bed and in no acute distress. HEENT--PERRL, EOMI, mucous membranes and oropharynx mildly dry Neck--supple. No JVD. No bruits. Thyroid normal, trachea midline, no adenopathy. Heart--normal S1 and S2. No murmurs, rubs or gallops. Lungs--clear bilaterally, no respiratory distress, no accessory muscle use. Abdomen--normal bowel sounds and soft. Mild epigastric and left sided abdominal pain Extremities--no cyanosis or clubbing. No edema. Dermatologic--normal skin turgor, normal color, no abnormal lymph nodes, no rash . Neurologic--cranial nerves II through XII grossly intact. Rheumatologic--normal range of motion. Psychiatric--normal affect. Results & Data Results & Data ([facility]) Vital Signs (Past 12 Hours) Vital Signs Temp Pulse Resp BP Pulse Ox O2 Del Method 06/10/22 07:19 97.5 F L 63 16 121/78 95 Room Air PG Care Time/CCT Total # of Minutes Spent Total Time Spent with Patient: Total time spent is greater than 50% in coordination of care (as documented) at patient's floor/unit and/or counseling patient: Coding Level of Care Code 82339 SUB INP/OBS CARE 2/35MIN Diagnoses Weakness R53.1 Multiple sclerosis G35 Acute CVA (cerebrovascular accident) I63.9 Diabetes E11.9 Muscle weakness (generalized) M62.81 Hypertension I10 Hypertension type: essential hypertension COPD (chronic obstructive pulmonary disease) J44.9 COPD type: unspecified COPD Gastro-esophageal reflux K21.9 Esophagitis presence: esophagitis presence not specified Carotid stenosis, left I65.22 Time Spent (min) 35 (1) Hypertension Hypertension type: essential hypertension Qualified Code(s): I10 - Essential (primary) hypertension (2) COPD (chronic obstructive pulmonary disease) COPD type: unspecified COPD Qualified Code(s): J44.9 - Chronic obstructive pulmonary disease, unspecified (3) Gastro-esophageal reflux Esophagitis presence: esophagitis presence not specified Qualified Code(s): K21.9 - Gastro-esophageal reflux disease without esophagitis
[2022-06-10] MEDS: VENLAFAXINE HCL XR 150 MG CAPXR PO SCH (21:32)
[2022-06-10] MEDS: ATORVASTATIN 40 MG TAB PO SCH (21:32)
[2022-06-10] MEDS: QUEtiapine FUMARATE 100 MG TABLET PO SCH (21:32)
[2022-06-11 06:34] LABS: Hematocrit (blood only) 37.6 % (40.1-51.0); Hemoglobin 13.7 g/dl (14.0-18.0); Mean Corpuscular Hemoglobin 30.2 pg (25.0-34.0); Mean Corpuscular Hgb Conc 36.4 g/dL (32.0-36.0); Mean Platelet Volume 10.6 fL (9.4-12.4); Platelet Count 147 K/uL (130-400); RDW Coefficient of Variation 12.3 % (11.5-14.5); RDW Standard Deviation 37.2 fL (36.4-46.3); Red Blood Count 4.53 M/uL (4.63-6.08); White Blood Count 5.59 K/ul (4.8-10.8)
[2022-06-11 06:59] LABS: BUN Creatinine Ratio 28.4 (10-20); Creatinine Clr Calc Pharmacy 86.5 ml/min; Est GFR (African American) 100.8 ml/min; Est GFR (Non-African American) 86.9 ml/min; Potassium 3.4 mmol/L (3.5-5.1)
[2022-06-11] MEDS: TOLTERODINE TARTRATE LA 4 MG CAPCR PO SCH (09:07)
[2022-06-11] MEDS: FAMOTIDINE 20 MG in SYRINGE 3 ML IV SCH ×2 (09:07→20:14)
[2022-06-11] MEDS: CLOPIDOGREL BISULFATE 75 MG TAB PO SCH (09:07)
[2022-06-11] MEDS: LOSARTAN POTASSIUM 25 MG TAB PO SCH ×2 (09:07→20:15)
[2022-06-11] MEDS: ASPIRIN 81 MG ECTAB PO SCH (09:08)
[2022-06-11] MEDS: ENOXAPARIN INJ 30 MG/0.3 ML SYR SQ SCH ×2 (09:08→21:10)
[2022-06-11] MEDS: POLYETHYLENE (MIRALAX) 17 GM PACK PO SCH (09:08)
[2022-06-11] MEDS: FLUTICASONE/VILANTEROL 100/25MCG 14 PUFFS/INHALER INH SCH (09:08)
[2022-06-11] MEDS: PANTOprazole 40 MG TAB PO SCH (09:08)
--- NOTE | 2022-06-11 13:49 | Hospitalist Progress Note ---
Date of Service June 11, 2022 Assessment & Plan (1) Weakness: Plan: 76-year-old male with past medical history of MS, CVA, DM 2, hypertension, depression, GERD, overactive bladder who presents with continued progressive global weakness and decline and poor appetite. Was recently seen in the hospital, no infectious etiology was found was given fluids and discharged home. -Weakness, generalized decline. Most likely deconditioning -No evidence of MS flare up and no evidence of new stroke on MRI -Participating in PT -Awaiting SNF placement (2) Multiple sclerosis: Plan: MS With recent MRI showing no spinal/brain involvement On every 6 months ocrelizumab last received 1 month ago. No recent steroid treatment Recent follow-up with neurology, do not suspect that this is an MS flare. (3) Acute CVA (cerebrovascular accident): Plan: History of CVA No new deficits, no focal deficits on neuro exam Continue aspirin, Plavix, statin (4) Diabetes: Plan: History of type II DM, on metformin monotherapy Last A1c approximately 5% Glucose under fair control (5) Muscle weakness (generalized): Plan: most likely deconditioning (6) Hypertension: Plan: BP stable Continue losartan (7) COPD (chronic obstructive pulmonary disease): Plan: COPD Lungs are without significant wheezing on evaluation, patient denies sputum change in cough. No evidence of acute exacerbation on admission Continue Advair, albuterol as needed (8) Gastro-esophageal reflux: (9) Carotid stenosis, left: Plan DVT prophylaxis: SCDs, dose reduced Lovenox given age/BMI and DAPT Diet: Regular, nutrition consult placed. Aspiration precautions. Disposition: awaiting placement in SNF CODE STATUS: DNR/DNI Admission and Anticipated Discharge Date Admission Date: June 09, 2022 Subjective patient seen and examined, no new complaints, participating in PT, awaiting SNF Review of Systems Review of Systems: All systems reviewed are negative, apart from the ones contained in the history. Physical Exam Physical Exam: The patient is awake, alert and oriented 3, well developed and well nourished, normocephalic and atraumatic, lying in bed and in no acute distress. HEENT--PERRL, EOMI, mucous membranes and oropharynx mildly dry Neck--supple. No JVD. No bruits. Thyroid normal, trachea midline, no adenopat hy. Heart--normal S1 and S2. No murmurs, rubs or gallops. Lungs--clear bilaterally, no respiratory distress, no accessory muscle use. Abdomen--normal bowel sounds and soft. Mild epigastric and left sided abdominal pain Extremities--no cyanosis or clubbing. No edema. Dermatologic--normal skin turgor, normal color, no abnormal lymph nodes, no rash. Neurologic--cranial nerves II through XII grossly intact. Rheumatologic--normal range of motion. Psychiatric--normal affect. Results & Data Results & Data ([facility]) Vital Signs (Past 12 Hours) Vital Signs Temp Pulse Resp BP Pulse Ox O2 Del Method 06/11/22 07:35 97.7 F 67 16 143/86 H 94 Room Air PG Care Time/CCT Total # of Minutes Spent Total Time Spent with Patient: Total time spent is greater than 50% in coordination of care (as documented) at patient's floor/unit and/or counseling patient: Coding Level of Care Code 59405 SUB INP/OBS CARE 2/35MIN Diagnoses Weakness R53.1 Multiple sclerosis G35 Acute CVA (cerebrovascular accident) I63.9 Diabetes E11.9 Muscle weakness (generalized) M62.81 Hypertension I10 Hypertension type: essential hypertension COPD (chronic obstructive pulmonary disease) J44.9 COPD type: unspecified COPD Gastro-esophageal reflux K21.9 Esophagitis presence: esophagitis presence not specified Carotid stenosis, left I65.22 Time Spent (min) 35 (1) Hypertension Hypertension type: essential hypertension Qualified Code(s): I10 - Essential (primary) hypertension (2) COPD (chronic obstructive pulmonary disease) COPD type: unspecified COPD Qualified Code(s): J44.9 - Chronic obstructive pulmonary disease, unspecified (3) Gastro-esophageal reflux Esophagitis presence: esophagitis presence not specified Qualified Code(s): K21.9 - Gastro-esophageal reflux disease without esophagitis
[2022-06-11] MEDS: QUEtiapine FUMARATE 100 MG TABLET PO SCH (20:14)
[2022-06-11] MEDS: VENLAFAXINE HCL XR 150 MG CAPXR PO SCH (20:15)
[2022-06-11] MEDS: ATORVASTATIN 40 MG TAB PO SCH (20:15)
[2022-06-12] MEDS: ASPIRIN 81 MG ECTAB PO SCH (08:08)
[2022-06-12] MEDS: CLOPIDOGREL BISULFATE 75 MG TAB PO SCH (08:08)
[2022-06-12] MEDS: LOSARTAN POTASSIUM 25 MG TAB PO SCH ×2 (08:09→20:21)
[2022-06-12] MEDS: FLUTICASONE/VILANTEROL 100/25MCG 14 PUFFS/INHALER INH SCH (08:09)
[2022-06-12] MEDS: PANTOprazole 40 MG TAB PO SCH (08:10)
[2022-06-12] MEDS: POLYETHYLENE (MIRALAX) 17 GM PACK PO SCH (08:10)
[2022-06-12] MEDS: TOLTERODINE TARTRATE LA 4 MG CAPCR PO SCH (08:10)
[2022-06-12] MEDS: FAMOTIDINE 20 MG in SYRINGE 3 ML IV SCH ×2 (09:58→20:24)
[2022-06-12] MEDS: ENOXAPARIN INJ 30 MG/0.3 ML SYR SQ SCH ×2 (09:58→20:30)
--- NOTE | 2022-06-12 15:27 | Hospitalist Progress Note ---
Date of Service June 12, 2022 Assessment & Plan (1) Weakness: Plan: 76-year-old male with past medical history of MS, CVA, DM 2, hypertension, depression, GERD, overactive bladder who presents with continued progressive global weakness and decline and poor appetite. Was recently seen in the hospital, no infectious etiology was found was given fluids and discharged home. -Weakness, generalized decline. Most likely deconditioning -No evidence of MS flare up and no evidence of new stroke on MRI -Participating in PT -Vital signs stable, tolerating diet -Awaiting SNF placement (2) Multiple sclerosis: Plan: MS With recent MRI showing no spinal/brain involvement On every 6 months ocrelizumab last received 1 month ago. No recent steroid treatment Recent follow-up with neurology, do not suspect that this is an MS flare. (3) Acute CVA (cerebrovascular accident): Plan: History of CVA No new deficits, no focal deficits on neuro exam Continue aspirin, Plavix, statin (4) Diabetes: Plan: History of type II DM, on metformin monotherapy Last A1c approximately 5% Glucose under fair control (5) Muscle weakness (generalized): Plan: most likely deconditioning (6) Hypertension: Plan: BP stable Continue losartan (7) COPD (chronic obstructive pulmonary disease): Plan: COPD Lungs are without significant wheezing on evaluation, patient denies sputum change in cough. No evidence of acute exacerbation on admission Continue Advair, albuterol as needed (8) Gastro-esophageal reflux: (9) Carotid stenosis, left: Plan DVT prophylaxis: SCDs, dose reduced Lovenox given age/BMI and DAPT Diet: Regular, nutrition consult placed. Aspiration precautions. Disposition: awaiting placement in SNF CODE STATUS: DNR/DNI Admission and Anticipated Discharge Date Admission Date: June 09, 2022 Subjective patient seen and examined, no new complaints, participating in PT, awaiting SNF, no new complaints Review of Systems Review of Systems: All systems reviewed are negative, apart from the ones contained in the history. Physical Exam Physical Exam: The patient is awake, alert and oriented 3, well developed and well nourished, normocephalic and atraumatic, lying in bed and in no acute distress. HEENT--PERRL, EOMI, mucous membranes and oropharynx mildly dry Neck--supple. No JVD. No bruits. Thyroid normal, trachea midline, no adenopathy. Heart--normal S1 and S2. No murmurs, rubs or gallops. Lungs--clear bilaterally, no respiratory distress, no accessory muscle use. Abdomen--normal bowel sounds and soft. Mild epigastric and left sided abdominal pain Extremities--no cyanosis or clubbing. No edema. Dermatologic--normal skin turgor, normal color, no abnormal lymph nodes, no rash. Neurologic--cranial nerves II through XII grossly intact. Rheumatologic--normal range of motion. Psychiatric--normal affect. Results & Data Results & Data ([facility]) Vital Signs (Past 12 Hours) Vital Signs Temp Pulse Resp BP Pulse Ox O2 Del Method 06/12/22 07:38 97.3 F L 59 L 18 129/74 93 Room Air PG Care Time/CCT Total # of Minutes Spent Total Time Spent with Patient: Total time spent is greater than 50% in coordination of care (as documented) at patient's floor/unit and/or counseling patient: Coding Level of Care Code 20031 SUB INP/OBS CARE 2/35MIN Diagnoses Weakness R53.1 Multiple sclerosis G35 Acute CVA (cerebrovascular accident) I63.9 Diabetes E11.9 Muscle weakness (generalized) M62.81 Hypertension I10 Hypertension type: essential hypertension COPD (chronic obstructive pulmonary disease) J44.9 COPD type: unspecified COPD Gastro-esophageal reflux K21.9 Esophagitis presence: esophagitis presence not specified Carotid stenosis, left I65.22 Time Spent (min) 35 (1) Hypertension Hypertension type: essential hypertension Qualified Code(s): I10 - Essential (primary) hypertension (2) COPD (chronic obstructive pulmonary disease) COPD type: unspecified COPD Qualified Code(s): J44.9 - Chronic obstructive pulmonary disease, unspecified (3) Gastro-esophageal reflux Esophagitis presence: esophagitis presence not specified Qualified Code(s): K21.9 - Gastro-esophageal reflux disease without esophagitis
[2022-06-12] MEDS: ATORVASTATIN 40 MG TAB PO SCH (20:21)
[2022-06-12] MEDS: VENLAFAXINE HCL XR 150 MG CAPXR PO SCH (20:22)
[2022-06-12] MEDS: QUEtiapine FUMARATE 100 MG TABLET PO SCH (20:22)
[2022-06-13 06:56] LABS: Hematocrit (blood only) 37.7 % (40.1-51.0); Hemoglobin 13.3 g/dl (14.0-18.0); Mean Corpuscular Hemoglobin 30.4 pg (25.0-34.0); Mean Corpuscular Hgb Conc 35.3 g/dL (32.0-36.0); Mean Corpuscular Volume 86.3 fL (80.0-100.0); Mean Platelet Volume 10.2 fL (9.4-12.4); Platelet Count 151 K/uL (130-400); RDW Coefficient of Variation 12.3 % (11.5-14.5); RDW Standard Deviation 38.8 fL (36.4-46.3); Red Blood Count 4.37 M/uL (4.63-6.08)
[2022-06-13 07:38] LABS: BUN Creatinine Ratio 27.8 (10-20); Calcium 8.3 mg/dl (8.5-10.1); Creatinine Clr Calc Pharmacy 88.7 ml/min; Est GFR (African American) 101.8 ml/min; Est GFR (Non-African American) 87.8 ml/min; Potassium 3.6 mmol/L (3.5-5.1)
[2022-06-13] MEDS: ASPIRIN 81 MG ECTAB PO SCH (09:56)
[2022-06-13] MEDS: CLOPIDOGREL BISULFATE 75 MG TAB PO SCH (09:56)
[2022-06-13] MEDS: FLUTICASONE/VILANTEROL 100/25MCG 14 PUFFS/INHALER INH SCH (09:56)
[2022-06-13] MEDS: PANTOprazole 40 MG TAB PO SCH (09:57)
[2022-06-13] MEDS: LOSARTAN POTASSIUM 25 MG TAB PO SCH ×2 (09:58→21:51)
[2022-06-13] MEDS: POLYETHYLENE (MIRALAX) 17 GM PACK PO SCH (09:58)
[2022-06-13] MEDS: TOLTERODINE TARTRATE LA 4 MG CAPCR PO SCH (09:58)
[2022-06-13] MEDS: ENOXAPARIN INJ 30 MG/0.3 ML SYR SQ SCH ×2 (09:59→21:51)
[2022-06-13] MEDS: FAMOTIDINE 20 MG in SYRINGE 3 ML IV SCH ×2 (10:06→22:21)
--- NOTE | 2022-06-13 13:54 | Hospitalist Progress Note ---
Date of Service June 13, 2022 Assessment & Plan (1) Weakness: Plan: 76-year-old male with past medical history of MS, CVA, DM 2, hypertension, depression, GERD, overactive bladder who presents with continued progressive global weakness and decline and poor appetite. Was recently seen in the hospital, no infectious etiology was found was given fluids and discharged home. -Weakness, generalized decline. Most likely physical deconditioning -No evidence of MS flare up and no evidence of new stroke on MRI -Participating in PT -Vital signs stable, tolerating diet -Awaiting SNF placement (2) Multiple sclerosis: Plan: MS With recent MRI showing no spinal/brain involvement On every 6 months ocrelizumab last received 1 month ago. No recent steroid treatment Recent follow-up with neurology, do not suspect that this is an MS flare. (3) Acute CVA (cerebrovascular accident): Plan: History of CVA No new deficits, no focal deficits on neuro exam Continue aspirin, Plavix, statin (4) Diabetes: Plan: History of type II DM, on metformin monotherapy Last A1c approximately 5% Glucose under fair control (5) Muscle weakness (generalized): Plan: most likely deconditioning participating in PT (6) Hypertension: Plan: BP stable Continue losartan (7) COPD (chronic obstructive pulmonary disease): Plan: COPD Lungs are without significant wheezing on evaluation, patient denies sputum change in cough. No evidence of acute exacerbation on admission Continue Advair, albuterol as needed (8) Gastro-esophageal reflux: (9) Carotid stenosis, left: Plan DVT prophylaxis: SCDs, dose reduced Lovenox given age/BMI and DAPT Diet: Regular, nutrition consult placed. Aspiration precautions. Disposition: awaiting placement in SNF CODE STATUS: DNR/DNI Admission and Anticipated Discharge Date Admission Date: June 09, 2022 Subjective patient seen and examined, no new complaints, participating in PT, awaiting SNF, no new complaints, tolerating diet Review of Systems Review of Systems: All systems reviewed are negative, apart from the ones contained in the history. Physical Exam Physical Exam: The patient is awake, alert and oriented 3, well developed and well nourished, normocephalic and atraumatic, lying in bed and in no acute distress. HEENT--PERRL, EOMI, mucous membranes and oropharynx mildly dry Neck--supple. No JVD. No bruits. Thyroid normal, trachea midline, no adenopathy. Heart--normal S1 and S2. No murmurs, rubs or gallops. Lungs--clear bilaterally, no respiratory distress, no accessory muscle use. Abdomen--normal bowel sounds and soft. Mild epigastric and left sided abdominal pain Extremities--no cyanosis or clubbing. No edema. Dermatologic--normal skin turgor, normal color, no abnormal lymph nodes, no rash. Neurologic--cranial nerves II through XII grossly intact. Rheumatologic--normal range of motion. Psychiatric--normal affect. Results & Data Results & Data ([facility]) Vital Signs (Past 12 Hours) Vital Signs Temp Pulse Resp BP Pulse Ox O2 Del Method 06/13/22 07:32 97.9 F 63 16 135/72 94 Room Air PG Care Time/CCT Total # of Minutes Spent Total Time Spent with Patient: Total time spent is greater than 50% in coordination of care (as documented) at patient's floor/unit and/or counseling patient: Coding Level of Care Code 18476 SUB INP/OBS CARE 2/35MIN Diagnoses Weakness R53.1 Multiple sclerosis G35 Acute CVA (cerebrovascular accident) I63.9 Diabetes E11.9 Muscle weakness (generalized) M62.81 Hypertension I10 Hypertension type: essential hypertension COPD (chronic obstructive pulmonary disease) J44.9 COPD type: unspecified COPD Gastro-esophageal reflux K21.9 Esophagitis presence: esophagitis presence not specified Carotid stenosis, left I65.22 Time Spent (min) 35 (1) Hypertension Hypertension type: essential hypertension Qualified Code(s): I10 - Essential (primary) hypertension (2) COPD (chronic obstructive pulmonary disease) COPD type: unspecified COPD Qualified Code(s): J44.9 - Chronic obstructive pulmonary disease, unspecified (3) Gastro-esophageal reflux Esophagitis presence: esophagitis presence not specified Qualified Code(s): K21.9 - Gastro-esophageal reflux disease without esophagitis
[2022-06-13] MEDS: VENLAFAXINE HCL XR 150 MG CAPXR PO SCH (21:50)
[2022-06-13] MEDS: QUEtiapine FUMARATE 100 MG TABLET PO SCH (21:51)
[2022-06-13] MEDS: ATORVASTATIN 40 MG TAB PO SCH (21:51)
[2022-06-14] MEDS: ENOXAPARIN INJ 30 MG/0.3 ML SYR SQ SCH ×2 (09:12→20:15)
[2022-06-14] MEDS: FLUTICASONE/VILANTEROL 100/25MCG 14 PUFFS/INHALER INH SCH (09:12)
[2022-06-14] MEDS: LOSARTAN POTASSIUM 25 MG TAB PO SCH ×2 (09:12→20:16)
[2022-06-14] MEDS: ASPIRIN 81 MG ECTAB PO SCH (09:12)
[2022-06-14] MEDS: CLOPIDOGREL BISULFATE 75 MG TAB PO SCH (09:12)
[2022-06-14] MEDS: POLYETHYLENE (MIRALAX) 17 GM PACK PO SCH (09:12)
[2022-06-14] MEDS: PANTOprazole 40 MG TAB PO SCH (09:13)
[2022-06-14] MEDS: TOLTERODINE TARTRATE LA 4 MG CAPCR PO SCH (09:13)
[2022-06-14] MEDS: FAMOTIDINE 20 MG in SYRINGE 3 ML IV SCH ×2 (09:19→20:11)
--- NOTE | 2022-06-14 13:42 | Hospitalist Progress Note ---
Date of Service June 14, 2022 Assessment & Plan (1) Weakness: Plan: 76-year-old male with past medical history of MS, CVA, DM 2, hypertension, depression, GERD, overactive bladder who presents with continued progressive global weakness and decline and poor appetite. Was recently seen in the hospital, no infectious etiology was found was given fluids and discharged home. -Patient presented with Weakness, generalized decline. Most likely physical deconditioning -No evidence of MS flare up and no evidence of new stroke on MRI -Participating in PT -Vital signs stable, tolerating diet -Awaiting SNF placement (2) Multiple sclerosis: Plan: MS With recent MRI showing no spinal/brain involvement On every 6 months ocrelizumab last received 1 month ago. No recent steroid treatment Recent follow-up with neurology, do not suspect that this is an MS flare. (3) Acute CVA (cerebrovascular accident): Plan: History of CVA No new deficits, no focal deficits on neuro exam Continue aspirin, Plavix, statin (4) Diabetes: Plan: History of type II DM, on metformin monotherapy Last A1c approximately 5% Glucose under fair control (5) Muscle weakness (generalized): Plan: most likely deconditioning participating in PT (6) Hypertension: Plan: BP stable Continue losartan (7) COPD (chronic obstructive pulmonary disease): Plan: COPD Lungs are without significant wheezing on evaluation, patient denies sputum change in cough. No evidence of acute exacerbation on admission Continue Advair, albuterol as needed (8) Gastro-esophageal reflux: (9) Carotid stenosis, left: Plan DVT prophylaxis: SCDs, dose reduced Lovenox given age/BMI and DAPT Diet: Regular, nutrition consult placed. Aspiration precautions. Disposition: awaiting placement in SNF CODE STATUS: DNR/DNI Admission and Anticipated Discharge Date Admission Date: June 09, 2022 Subjective patient seen and examined, no new complaints, participating in PT, awaiting SNF, no new complaints, tolerating diet Review of Systems Review of Systems: All systems reviewed are negative, apart from the ones contained in the history. Physical Exam Physical Exam: The patient is awake, alert and oriented 3, well developed and well nourished, normocephalic and atraumatic, lying in bed and in no acute distress. HEENT--PERRL, EOMI, mucous membranes and oropharynx mildly dry Neck--supple. No JVD. No bruits. Thyroid normal, trachea midline, no adenopathy. Heart--normal S1 and S2. No murmurs, rubs or gallops. Lungs--clear bilaterally, no respiratory distress, no accessory muscle use. Abdomen--normal bowel sounds and soft. Mild epigastric and left sided abdominal pain Extremities--no cyanosis or clubbing. No edema. Dermatologic--normal skin turgor, normal color, no abnormal lymph nodes, no rash. Neurologic--cranial nerves II through XII grossly intact. Rheumatologic--normal range of motion. Psychiatric--normal affect. Results & Data Results & Data ([facility]) Vital Signs (Past 12 Hours) Vital Signs Temp Pulse Resp BP Pulse Ox O2 Del Method 06/14/22 07:06 97.7 F 71 14 112/70 93 Room Air PG Care Time/CCT Total # of Minutes Spent Total Time Spent with Patient: Total time spent is greater than 50% in coordination of care (as documented) at patient's floor/unit and/or counseling patient: Coding Level of Care Code 12831 SUB INP/OBS CARE 2/35MIN Diagnoses Weakness R53.1 Multiple sclerosis G35 Acute CVA (cerebrovascular accident) I63.9 Diabetes E11.9 Muscle weakness (generalized) M62.81 Hypertension I10 Hypertension type: essential hypertension COPD (chronic obstructive pulmonary disease) J44.9 COPD type: unspecified COPD Gastro-esophageal reflux K21.9 Esophagitis presence: esophagitis presence not specified Carotid stenosis, left I65.22 Time Spent (min) 35 (1) Hypertension Hypertension type: essential hypertension Qualified Code(s): I10 - Essential (primary) hypertension (2) COPD (chronic obstructive pulmonary disease) COPD type: unspecified COPD Qualified Code(s): J44.9 - Chronic obstructive pulmonary disease, unspecified (3) Gastro-esophageal reflux Esophagitis presence: esophagitis presence not specified Qualified Code(s): K 21.9 - Gastro-esophageal reflux disease without esophagitis
[2022-06-14] MEDS: ATORVASTATIN 40 MG TAB PO SCH (20:16)
[2022-06-14] MEDS: VENLAFAXINE HCL XR 150 MG CAPXR PO SCH (20:16)
[2022-06-14] MEDS: QUEtiapine FUMARATE 100 MG TABLET PO SCH (20:16)
[2022-06-15] MEDS: POLYETHYLENE (MIRALAX) 17 GM PACK PO SCH (08:20)
[2022-06-15] MEDS: FLUTICASONE/VILANTEROL 100/25MCG 14 PUFFS/INHALER INH SCH (08:20)
[2022-06-15] MEDS: LOSARTAN POTASSIUM 25 MG TAB PO SCH ×2 (08:20→20:06)
[2022-06-15] MEDS: PANTOprazole 40 MG TAB PO SCH (08:20)
[2022-06-15] MEDS: CLOPIDOGREL BISULFATE 75 MG TAB PO SCH (08:20)
[2022-06-15] MEDS: TOLTERODINE TARTRATE LA 4 MG CAPCR PO SCH (08:20)
[2022-06-15] MEDS: ASPIRIN 81 MG ECTAB PO SCH (08:20)
[2022-06-15] MEDS: ENOXAPARIN INJ 30 MG/0.3 ML SYR SQ SCH ×2 (08:21→20:06)
[2022-06-15] MEDS: FAMOTIDINE 20 MG in SYRINGE 3 ML IV SCH ×2 (08:22→20:11)
--- NOTE | 2022-06-15 12:41 | Hospitalist Progress Note ---
Date of Service June 15, 2022 Assessment & Plan (1) Weakness: Plan: 76-year-old male with past medical history of MS, CVA, DM 2, hypertension, depression, GERD, overactive bladder who presents with continued progressive global weakness and decline and poor appetite. Was recently seen in the hospital, no infectious etiology was found was given fluids and discharged home. -Patient presented with Weakness, generalized decline. Most likely physical deconditioning -No evidence of MS flare up and no evidence of new stroke on MRI -Participating in PT -Vital signs stable, tolerating diet -Awaiting SNF placement (2) Multiple sclerosis: Plan: MS With recent MRI showing no spinal/brain involvement On every 6 months ocrelizumab last received 1 month ago. No recent steroid treatment Recent follow-up with neurology, do not suspect that this is an MS flare. (3) Acute CVA (cerebrovascular accident): Plan: History of CVA No new deficits, no focal deficits on neuro exam Continue aspirin, Plavix, statin (4) Diabetes: Plan: History of type II DM, on metformin monotherapy Last A1c approximately 5% Glucose under fair control (5) Muscle weakness (generalized): Plan: most likely deconditioning participating in PT (6) Hypertension: Plan: BP stable Continue losartan (7) COPD (chronic obstructive pulmonary disease): Plan: COPD Lungs are without significant wheezing on evaluation, patient denies sputum change in cough. No evidence of acute exacerbation on admission Continue Advair, albuterol as needed (8) Gastro-esophageal reflux: (9) Carotid stenosis, left: Plan DVT prophylaxis: SCDs, dose reduced Lovenox given age/BMI and DAPT Diet: Regular, nutrition consult placed. Aspiration precautions. Disposition: awaiting placement in SNF, according to SW, no beds anticipated this week at center care CODE STATUS: DNR/DNI Admission and Anticipated Discharge Date Admission Date: June 09, 2022 Subjective patient seen and examined, no new complaints, participating in PT, awaiting SNF, no new complaints, tolerating diet Review of Systems Review of Systems: All systems reviewed are negative, apart from the ones contained in the history. Physical Exam Physical Exam: The patient is awake, alert and oriented 3, well developed and well nourished, normocephalic and atraumatic, lying in bed and in no acute distress. HEENT--PERRL, EOMI, mucous membranes and oropharynx mildly dry Neck--supple. No JVD. No bruits. Thyroid normal, trachea midline, no adenopathy. Heart--normal S1 and S2. No murmurs, rubs or gallops. Lungs--clear bilaterally, no respiratory distress, no accessory muscle use. Abdomen--normal bowel sounds and soft. Mild epigastric and left sided abdominal pain Extremities--no cyanosis or clubbing. No edema. Dermatologic--normal skin turgor, normal color, no abnormal lymph nodes, no rash. Neurologic--cranial nerves II through XII grossly intact. Rheumatologic--normal range of motion. Psychiatric--normal affect. Results & Data Results & Data ([facility]) Vital Signs (Past 12 Hours) Vital Signs Temp Pulse Resp BP Pulse Ox O2 Del Method 06/15/22 08:01 97.9 F 65 18 148/83 H 95 Room Air PG Care Time/CCT Total # of Minutes Spent Total Time Spent with Patient: Total time spent is greater than 50% in coordination of care (as documented) at patient's floor/unit and/or counseling patient: Coding Level of Care Code 30882 SUB INP/OBS CARE 2/35MIN Diagnoses Weakness R53.1 Multiple sclerosis G35 Acute CVA (cerebrovascular accident) I63.9 Diabetes E11.9 Muscle weakness (generalized) M62.81 Hypertension I10 Hypertension type: essential hypertension COPD (chronic obstructive pulmonary disease) J44.9 COPD type: unspecified COPD Gastro-esophageal reflux K21.9 Esophagitis presence: esophagitis presence not specified Carotid stenosis, left I65.22 Time Spent (min) 35 (1) Hypertension Hypertension type: essential hypertension Qualified Code(s): I10 - Essential (primary) hypertension (2) COPD (chronic obstructive pulmonary disease) COPD type: unspecified COPD Qualified Code(s): J44.9 - Chronic obstructive pulmonary disease, unspecified (3) Gastro-esophageal reflux Esophagitis presence: esophagitis presence not specified Qualified Code(s): K21.9 - Gastro-esophageal reflux disease without esophagitis
[2022-06-15] MEDS: VENLAFAXINE HCL XR 150 MG CAPXR PO SCH (20:05)
[2022-06-15] MEDS: QUEtiapine FUMARATE 100 MG TABLET PO SCH (20:06)
[2022-06-15] MEDS: ATORVASTATIN 40 MG TAB PO SCH (20:06)
[2022-06-16] MEDS: ASPIRIN 81 MG ECTAB PO SCH (09:15)
[2022-06-16] MEDS: CLOPIDOGREL BISULFATE 75 MG TAB PO SCH (09:15)
[2022-06-16] MEDS: LOSARTAN POTASSIUM 25 MG TAB PO SCH ×2 (09:16→20:40)
[2022-06-16] MEDS: PANTOprazole 40 MG TAB PO SCH (09:16)
[2022-06-16] MEDS: FLUTICASONE/VILANTEROL 100/25MCG 14 PUFFS/INHALER INH SCH (09:16)
[2022-06-16] MEDS: TOLTERODINE TARTRATE LA 4 MG CAPCR PO SCH (09:16)
[2022-06-16] MEDS: POLYETHYLENE (MIRALAX) 17 GM PACK PO SCH (09:17)
[2022-06-16] MEDS: ENOXAPARIN INJ 30 MG/0.3 ML SYR SQ SCH ×2 (09:17→20:41)
[2022-06-16] MEDS: FAMOTIDINE 20 MG in SYRINGE 3 ML IV SCH ×2 (09:20→20:40)
--- NOTE | 2022-06-16 14:03 | Hospitalist Progress Note ---
Date of Service June 16, 2022 Assessment & Plan (1) Weakness: Plan: 76-year-old male with past medical history of MS, CVA, DM 2, hypertension, depression, GERD, overactive bladder who presents with continued progressive global weakness and decline and poor appetite. Was recently seen in the hospital, no infectious etiology was found was given fluids and discharged home. -Patient presented with Weakness, generalized decline. Most likely physical deconditioning -No evidence of MS flare up and no evidence of new stroke on MRI -Participating in PT -Vital signs stable, tolerating diet -Awaiting SNF placement (2) Multiple sclerosis: Plan: MS With recent MRI showing no spinal/brain involvement On every 6 months ocrelizumab last received 1 month ago. No recent steroid treatment Recent follow-up with neurology, do not suspect that this is an MS flare. (3) Acute CVA (cerebrovascular accident): Plan: History of CVA No new deficits, no focal deficits on neuro exam Continue aspirin, Plavix, statin (4) Diabetes: Plan: History of type II DM, on metformin monotherapy Last A1c approximately 5% Glucose under fair control (5) Muscle weakness (generalized): Plan: most likely deconditioning participating in PT (6) Hypertension: Plan: BP trending up Continue losartan, will add Amlodipine 5mg daily (7) COPD (chronic obstructive pulmonary disease): Plan: COPD Lungs are without significant wheezing on evaluation, patient denies sputum change in cough. No evidence of acute exacerbation on admission Continue Advair, albuterol as needed (8) Gastro-esophageal reflux: (9) Carotid stenosis, left: Plan DVT prophylaxis: SCDs, dose reduced Lovenox given age/BMI and DAPT Diet: Regular, nutrition consult placed. Aspiration precautions. Disposition: awaiting placement in SNF, according to , no beds anticipated this week at [facility] CODE STATUS: DNR/DNI Admission and Anticipated Discharge Date Admission Date: June 09, 2022 Subjective patient seen and examined, no new complaints, participating in PT, awaiting SNF, no new complaints, tolerating diet Review of Systems Review of Systems: All systems reviewed are negative, apart from the ones contained in the history. Physical Exam Physical Exam: The patient is awake, alert and oriented 3, well developed and well nourished, normocephalic and atraumatic, lying in bed and in no acute distress. HEENT--PERRL, EOMI, mucous membranes and oropharynx mildly dry Neck--supple. No JVD. No bruits. Thyroid normal, trachea midline, no adenopathy. Heart--normal S1 and S2. No murmurs, rubs or gallops. Lungs--clear bilaterally, no respiratory distress, no accessory muscle use. Abdomen--normal bowel sounds and soft. Mild epigastric and left sided abdominal pain Extremities--no cyanosis or clubbing. No edema. Dermatologic--normal skin turgor, normal color, no abnormal lymph nodes, no rash. Neurologic--cranial nerves II through XII grossly intact. Rheumatologic--normal range of motion. Psychiatric--normal affect. Results & Data Results & Data ([facility]) Vital Signs (Past 12 Hours) Vital Signs Temp Pulse Resp BP BP Pulse Ox O2 Del Method 06/16/22 07:03 99.1 F 64 16 178/87 H 167/90 H 93 Room Air PG Care Time/CCT Total # of Minutes Spent Total Time Spent with Patient: Total time spent is greater than 50% in coordination of care (as documented) at patient's floor/unit and/or counseling patient: Coding Level of Care Code 65436 SUB INP/OBS CARE 2/35MIN Diagnoses Weakness R53.1 Multiple sclerosis G35 Acute CVA (cerebrovascular accident) I63.9 Diabetes E11.9 Muscle weakness (generalized) M62.81 Hypertension I10 Hypertension type: essential hypertension COPD (chronic obstructive pulmonary disease) J44.9 COPD type: unspecified COPD Gastro-esophageal reflux K21.9 Esophagitis presence: esophagitis presence not specified Carotid stenosis, left I65.22 Time Spent (min) 35 (1) Hypertension Hypertension type: essential hypertension Qualified Code(s): I10 - Essential (primary) hypertension (2) COPD (chronic obstructive pulmonary disease) COPD type: unspecified COPD Qualified Code(s): J44.9 - Chronic obstructive pulmonary disease, unspecified (3) Gastro-esophageal reflux Esophagitis presence: esophagitis presence not specified Qualified Code(s): K21.9 - Gastro-esophageal reflux disease without esophagitis
[2022-06-16] MEDS ORDERED: amLODIPine BESYLATE 5 MG TAB PO ONE (14:15)
[2022-06-16] MEDS: VENLAFAXINE HCL XR 150 MG CAPXR PO SCH (20:40)
[2022-06-16] MEDS: QUEtiapine FUMARATE 100 MG TABLET PO SCH (20:41)
[2022-06-16] MEDS: ATORVASTATIN 40 MG TAB PO SCH (20:41)
[2022-06-17] MEDS: CLOPIDOGREL BISULFATE 75 MG TAB PO SCH (08:50)
[2022-06-17] MEDS: amLODIPine BESYLATE 5 MG TAB PO SCH (08:50)
[2022-06-17] MEDS: PANTOprazole 40 MG TAB PO SCH (08:50)
[2022-06-17] MEDS: ASPIRIN 81 MG ECTAB PO SCH (08:50)
[2022-06-17] MEDS: TOLTERODINE TARTRATE LA 4 MG CAPCR PO SCH (08:50)
[2022-06-17] MEDS: LOSARTAN POTASSIUM 25 MG TAB PO SCH ×2 (08:50→20:00)
[2022-06-17] MEDS: ENOXAPARIN INJ 30 MG/0.3 ML SYR SQ SCH ×2 (08:52→20:00)
[2022-06-17] MEDS: POLYETHYLENE (MIRALAX) 17 GM PACK PO SCH (08:52)
[2022-06-17] MEDS: FLUTICASONE/VILANTEROL 100/25MCG 14 PUFFS/INHALER INH SCH (08:53)
[2022-06-17] MEDS: FAMOTIDINE 20 MG in SYRINGE 3 ML IV SCH ×2 (08:59→20:00)
--- NOTE | 2022-06-17 13:26 | Hospitalist Progress Note ---
Date of Service June 17, 2022 Assessment & Plan (1) Weakness: Plan: 76-year-old male with past medical history of MS, CVA, DM 2, hypertension, depression, GERD, overactive bladder who presents with continued progressive global weakness and decline and poor appetite. Was recently seen in the hospital, no infectious etiology was found was given fluids and discharged home. -Patient presented with Weakness, generalized decline. Most likely physical deconditioning -No evidence of MS flare up and no evidence of new stroke on MRI -Participating in PT -Vital signs stable, tolerating diet -Awaiting SNF placement (2) Multiple sclerosis: Plan: MS With recent MRI showing no spinal/brain involvement On every 6 months ocrelizumab last received 1 month ago. No recent steroid treatment Recent follow-up with neurology, do not suspect that this is an MS flare. (3) Acute CVA (cerebrovascular accident): Plan: History of CVA No new deficits, no focal deficits on neuro exam Continue aspirin, Plavix, statin (4) Diabetes: Plan: History of type II DM, on metformin monotherapy Last A1c approximately 5% Glucose under fair control (5) Muscle weakness (generalized): Plan: most likely deconditioning participating in PT (6) Hypertension: Plan: BP trending up Continue losartan, will add Amlodipine 5mg daily (7) COPD (chronic obstructive pulmonary disease): Plan: COPD Lungs are without significant wheezing on evaluation, patient denies sputum change in cough. No evidence of acute exacerbation on admission Continue Advair, albuterol as needed (8) Gastro-esophageal reflux: (9) Carotid stenosis, left: Plan DVT prophylaxis: SCDs, dose reduced Lovenox given age/BMI and DAPT Diet: Regular, nutrition consult placed. Aspiration precautions. Disposition: awaiting placement in SNF, according to , no beds anticipated this week at [place] CODE STATUS: DNR/DNI Admission and Anticipated Discharge Date Admission Date: June 09, 2022 Subjective patient seen and examined, no new complaints, participating in PT, awaiting SNF, no new complaints, tolerating diet Review of Systems Review of Systems: All systems reviewed are negative, apart from the ones contained in the history. Physical Exam Physical Exam: The patient is awake, alert and oriented 3, well developed and well nourished, normocephalic and atraumatic, lying in bed and in no acute distress. HEENT--PERRL, EOMI, mucous membranes and oropharynx mildly dry Neck--supple. No JVD. No bruits. Thyroid normal, trachea midline, no adenopathy. Heart--normal S1 and S2. No murmurs, rubs or gallops. Lungs--clear bilaterally, no respiratory distress, no accessory muscle use. Abdomen--normal bowel sounds and soft. Mild epigastric and left sided abdominal pain Extremities--no cyanosis or clubbing. No edema. Dermatologic--normal skin turgor, normal color, no abnormal lymph nodes, no rash. Neurologic--cranial nerves II through XII grossly intact. Rheumatologic--normal range of motion. Psychiatric--normal affect. Results & Data Results & Data ([facility]) Vital Signs (Past 12 Hours) Vital Signs Temp Pulse Resp BP Pulse Ox O2 Del Method 06/17/22 07:35 97.5 F L 63 16 126/79 94 Room Air 06/17/22 07:42 97.5 F L 63 16 126/79 94 Room Air PG Care Time/CCT Total # of Minutes Spent Total Time Spent with Patient: Total time spent is greater than 50% in coordination of care (as documented) at patient's floor/unit and/or counseling patient: Coding Level of Care Code 17529 SUB INP/OBS CARE 2/35MIN Diagnoses Weakness R53.1 Multiple sclerosis G35 Acute CVA (cerebrovascular accident) I63.9 Diabetes E11.9 Muscle weakness (generalized) M62.81 Hypertension I10 Hypertension type: essential hypertension COPD (chronic obstructive pulmonary disease) J44.9 COPD type: unspecified COPD Gastro-esophageal reflux K21.9 Esophagitis presence: esophagitis presence not specified Carotid stenosis, left I65.22 Time Spent (min) 35 (1) Hypertension Hypertension type: essential hypertension Qualified Code(s): I10 - Essential (primary) hypertension (2) COPD (chronic obstructive pulmonary disease) COPD type: unspecified COPD Qualified Code(s): J44.9 - Chronic obstructive pulmonary disease, unspecified (3) Gastro-esophageal reflux Esophagitis presence: esophagitis presence not specified Qualified Code(s): K21.9 - Gastro-esophageal reflux disease without esophagitis
[2022-06-17] MEDS: QUEtiapine FUMARATE 100 MG TABLET PO SCH (20:00)
[2022-06-17] MEDS: VENLAFAXINE HCL XR 150 MG CAPXR PO SCH (20:00)
[2022-06-17] MEDS: ATORVASTATIN 40 MG TAB PO SCH (20:00)
[2022-06-18] MEDS: FAMOTIDINE 20 MG in SYRINGE 3 ML IV SCH (08:22)
[2022-06-18] MEDS: ENOXAPARIN INJ 30 MG/0.3 ML SYR SQ SCH ×2 (08:27→20:16)
[2022-06-18] MEDS: FLUTICASONE/VILANTEROL 100/25MCG 14 PUFFS/INHALER INH SCH (08:28)
[2022-06-18] MEDS: ASPIRIN 81 MG ECTAB PO SCH (08:29)
[2022-06-18] MEDS: PANTOprazole 40 MG TAB PO SCH (08:30)
[2022-06-18] MEDS: LOSARTAN POTASSIUM 25 MG TAB PO SCH ×2 (08:30→20:16)
[2022-06-18] MEDS: amLODIPine BESYLATE 5 MG TAB PO SCH (08:30)
[2022-06-18] MEDS: POLYETHYLENE (MIRALAX) 17 GM PACK PO SCH (08:30)
[2022-06-18] MEDS: TOLTERODINE TARTRATE LA 4 MG CAPCR PO SCH (08:30)
[2022-06-18] MEDS: CLOPIDOGREL BISULFATE 75 MG TAB PO SCH (08:30)
--- NOTE | 2022-06-18 12:52 | Hospitalist Progress Note ---
Date of Service June 18, 2022 Assessment & Plan (1) Weakness: Plan: 76-year-old male with past medical history of MS, CVA, DM 2, hypertension, depression, GERD, overactive bladder who presents with continued progressive global weakness and decline and poor appetite. Was recently seen in the hospital, no infectious etiology was found was given fluids and discharged home. -Patient presented with Weakness, generalized decline. Most likely physical deconditioning -No evidence of MS flare up and no evidence of new stroke on MRI -Participating in PT -Vital signs stable, tolerating diet -Awaiting SNF placement (2) Multiple sclerosis: Plan: MS With recent MRI showing no spinal/brain involvement On every 6 months ocrelizumab last received 1 month ago. No recent steroid treatment Recent follow-up with neurology, do not suspect that this is an MS flare. (3) Acute CVA (cerebrovascular accident): Plan: History of CVA No new deficits, no focal deficits on neuro exam Continue aspirin, Plavix, statin (4) Diabetes: Plan: History of type II DM, on metformin monotherapy Last A1c approximately 5% Glucose under fair control (5) Muscle weakness (generalized): Plan: most likely deconditioning participating in PT (6) Hypertension: Plan: BP stable Continue losartan, will add Amlodipine 5mg daily (7) COPD (chronic obstructive pulmonary disease): Plan: COPD Lungs are without significant wheezing on evaluation, patient denies sputum change in cough. No evidence of acute exacerbation on admission Continue Advair, albuterol as needed (8) Gastro-esophageal reflux: (9) Carotid stenosis, left: Plan DVT prophylaxis: SCDs, dose reduced Lovenox given age/BMI and DAPT Diet: Regular, nutrition consult placed. Aspiration precautions. Disposition: awaiting placement in SNF, according to SW, [facility] beds [facility] CODE STATUS: DNR/DNI Admission and Anticipated Discharge Date Admission Date: June 09, 2022 Subjective patient seen and examined, no new complaints, participating in PT, awaiting SNF, no new complaints, tolerating diet Review of Systems Review of Systems: All systems reviewed are negative, apart from the ones contained in the history. Physical Exam Physical Exam: The patient is awake, alert and oriented 3, well developed and well nourished, normocephalic and atraumatic, lying in bed and in no acute distress. HEENT--PERRL, EOMI, mucous membranes and oropharynx mildly dry Neck--supple. No JVD. No bruits. Thyroid normal, trachea midline, no adenopathy. Heart--normal S1 and S2. No murmurs, rubs or gallops. Lungs--clear bilaterally, no respiratory distress, no accessory muscle use. Abdomen--normal bowel sounds and soft. Mild epigastric and left sided abdominal pain Extremities--no cyanosis or clubbing. No edema. Dermatologic--normal skin turgor, normal color, no abnormal lymph nodes, no rash. Neurologic--cranial nerves II through XII grossly intact. Rheumatologic--normal range of motion. Psychiatric--normal affect. Results & Data Results & Data ([facility]) Vital Signs (Past 12 Hours) Vital Signs Temp Pulse Resp BP Pulse Ox O2 Del Method 06/18/22 07:55 97.5 F L 66 16 112/69 94 Room Air PG Care Time/CCT Total # of Minutes Spent Total Time Spent with Patient: Total time spent is greater than 50% in coordination of care (as documented) at patient's floor/unit and/or counseling patient: Coding Level of Care Code 05255 SUB INP/OBS CARE 2/35MIN Diagnoses Weakness R53.1 Multiple sclerosis G35 Acute CVA (cerebrovascular accident) I63.9 Diabetes E11.9 Muscle weakness (generalized) M62.81 Hypertension I10 Hypertension type: essential hypertension COPD (chronic obstructive pulmonary disease) J44.9 COPD type: unspecified COPD Gastro-esophageal reflux K21.9 Esophagitis presence: esophagitis presence not specified Carotid stenosis, left I65.22 Time Spent (min) 35 (1) Hypertension Hypertension type: essential hypertension Qualified Code(s): I10 - Essential (primary) hypertension (2) COPD (chronic obstructive pulmonary disease) COPD type: unspecified COPD Qualified Code(s): J44.9 - Chronic obstructive pulmonary disease, unspecified (3) Gastro-esophageal reflux Esophagitis presence: esophagitis presence not specified Qualified Code(s): K21.9 - Gastro-esophageal reflux disease without esophagitis
[2022-06-18] MEDS: VENLAFAXINE HCL XR 150 MG CAPXR PO SCH (20:16)
[2022-06-18] MEDS: QUEtiapine FUMARATE 100 MG TABLET PO SCH (20:16)
[2022-06-18] MEDS: FAMOTIDINE 20 MG TAB PO SCH (20:16)
[2022-06-18] MEDS: ATORVASTATIN 40 MG TAB PO SCH (20:16)
[2022-06-19] MEDS: CLOPIDOGREL BISULFATE 75 MG TAB PO SCH (09:01)
[2022-06-19] MEDS: PANTOprazole 40 MG TAB PO SCH (09:01)
[2022-06-19] MEDS: amLODIPine BESYLATE 5 MG TAB PO SCH (09:01)
[2022-06-19] MEDS: POLYETHYLENE (MIRALAX) 17 GM PACK PO SCH (09:01)
[2022-06-19] MEDS: FAMOTIDINE 20 MG TAB PO SCH ×2 (09:01→20:00)
[2022-06-19] MEDS: LOSARTAN POTASSIUM 25 MG TAB PO SCH ×2 (09:01→20:00)
[2022-06-19] MEDS: TOLTERODINE TARTRATE LA 4 MG CAPCR PO SCH (09:01)
[2022-06-19] MEDS: FLUTICASONE/VILANTEROL 100/25MCG 14 PUFFS/INHALER INH SCH (09:01)
[2022-06-19] MEDS: ASPIRIN 81 MG ECTAB PO SCH (09:01)
[2022-06-19] MEDS: ENOXAPARIN INJ 30 MG/0.3 ML SYR SQ SCH ×2 (09:02→20:01)
--- NOTE | 2022-06-19 12:25 | Hospitalist Progress Note ---
Date of Service June 19, 2022 Assessment & Plan (1) Weakness: Plan: 76-year-old male with past medical history of MS, CVA, DM 2, hypertension, depression, GERD, overactive bladder who presents with continued progressive global weakness and decline and poor appetite. Was recently seen in the hospital, no infectious etiology was found was given fluids and discharged home. -Patient presented with Weakness, generalized decline. Most likely physical deconditioning -No evidence of MS flare up and no evidence of new stroke on MRI -Participating in PT -Vital signs stable, tolerating diet -Awaiting SNF placement (2) Multiple sclerosis: Plan: MS With recent MRI showing no spinal/brain involvement On every 6 months ocrelizumab last received 1 month ago. No recent steroid treatment Recent follow-up with neurology, do not suspect that this is an MS flare. (3) Acute CVA (cerebrovascular accident): Plan: History of CVA No new deficits, no focal deficits on neuro exam Continue aspirin, Plavix, statin (4) Diabetes: Plan: History of type II DM, on metformin monotherapy Last A1c approximately 5% Glucose under fair control (5) Muscle weakness (generalized): Plan: most likely deconditioning participating in PT (6) Hypertension: Plan: BP stable Continue losartan, will add Amlodipine 5mg daily (7) COPD (chronic obstructive pulmonary disease): Plan: COPD Lungs are without significant wheezing on evaluation, patient denies sputum change in cough. No evidence of acute exacerbation on admission Continue Advair, albuterol as needed (8) Gastro-esophageal reflux: (9) Carotid stenosis, left: Plan DVT prophylaxis: SCDs, dose reduced Lovenox given age/BMI and DAPT Diet: Regular, nutrition consult placed. Aspiration precautions. Disposition: awaiting placement in SNF, according to SW, [facility] CODE STATUS: DNR/DNI Admission and Anticipated Discharge Date Admission Date: June 09, 2022 Subjective patient seen and examined, no new complaints, participating in PT, awaiting SNF, no new complaints, tolerating diet Review of Systems Review of Systems: All systems reviewed are negative, apart from the ones contained in the history. Physical Exam Physical Exam: The patient is awake, alert and oriented 3, well developed and well nourished, normocephalic and atraumatic, lying in bed and in no acute distress. HEENT--PERRL, EOMI, mucous membranes and oropharynx mildly dry Neck--supple. No JVD. No bruits. Thyroid normal, trachea midline, no adenopathy. Heart--normal S1 and S2. No murmurs, rubs or gallops. Lungs--clear bilaterally, no respiratory distress, no accessory muscle use. Abdomen--normal bowel sounds and soft. Mild epigastric and left sided abdominal pain Extremities--no cyanosis or clubbing. No edema. Dermatologic--normal skin turgor, normal color, no abnormal lymph nodes, no rash. Neurologic--cranial nerves II through XII grossly intact. Rheumatologic--normal range of motion. Psychiatric--normal affect. Results & Data Results & Data ([facility]) Vital Signs (Past 12 Hours) Vital Signs Temp Pulse Resp BP Pulse Ox O2 Del Method 06/19/22 07:30 98.2 F 69 16 152/77 H 95 Room Air PG Care Time/CCT Total # of Minutes Spent Total Time Spent with Patient: Total time spent is greater than 50% in coordination of care (as documented) at patient's floor/unit and/or counseling patient: Coding Level of Care Code 87330 SUB INP/OBS CARE 2/35MIN Diagnoses Weakness R53.1 Multiple sclerosis G35 Acute CVA (cerebrovascular accident) I63.9 Diabetes E11.9 Muscle weakness (generalized) M62.81 Hypertension I10 Hypertension type: essential hypertension COPD (chronic obstructive pulmonary disease) J44.9 COPD type: unspecified COPD Gastro-esophageal reflux K21.9 Esophagitis presence: esophagitis presence not specified Carotid stenosis, left I65.22 Time Spent (min) 35 (1) Hypertension Hypertension type: essential hypertension Qualified Code(s): I10 - Essential (primary) hypertension (2) COPD (chronic obstructive pulmonary disease) COPD type: unspecified COPD Qualified Code(s): J44.9 - Chronic obstructive pulmonary disease, unspecified (3) Gastro-esophageal reflux Esophagitis presence: esophagitis presence not specified Qualified Code(s): K21.9 - Gastro-esophageal reflux disease without esophagitis
[2022-06-19] MEDS: VENLAFAXINE HCL XR 150 MG CAPXR PO SCH (20:00)
[2022-06-19] MEDS: ATORVASTATIN 40 MG TAB PO SCH (20:01)
[2022-06-19] MEDS: QUEtiapine FUMARATE 100 MG TABLET PO SCH (20:01)
[2022-06-20] MEDS: POLYETHYLENE (MIRALAX) 17 GM PACK PO SCH (08:23)
[2022-06-20] MEDS: PANTOprazole 40 MG TAB PO SCH (08:23)
[2022-06-20] MEDS: LOSARTAN POTASSIUM 25 MG TAB PO SCH ×2 (08:24→20:26)
[2022-06-20] MEDS: amLODIPine BESYLATE 5 MG TAB PO SCH (08:24)
[2022-06-20] MEDS: TOLTERODINE TARTRATE LA 4 MG CAPCR PO SCH (08:24)
[2022-06-20] MEDS: CLOPIDOGREL BISULFATE 75 MG TAB PO SCH (08:24)
[2022-06-20] MEDS: FAMOTIDINE 20 MG TAB PO SCH ×2 (08:25→20:26)
[2022-06-20] MEDS: ASPIRIN 81 MG ECTAB PO SCH (08:25)
[2022-06-20] MEDS: FLUTICASONE/VILANTEROL 100/25MCG 14 PUFFS/INHALER INH SCH (08:26)
[2022-06-20] MEDS: ENOXAPARIN INJ 30 MG/0.3 ML SYR SQ SCH ×2 (09:39→20:26)
--- NOTE | 2022-06-20 12:34 | Hospitalist Progress Note ---
Date of Service June 20, 2022 Assessment & Plan (1) Weakness: Plan: 76-year-old male with past medical history of MS, CVA, DM 2, hypertension, depression, GERD, overactive bladder who presents with continued progressive global weakness and decline and poor appetite. Was recently seen in the hospital, no infectious etiology was found was given fluids and discharged home. -Patient presented with Weakness, generalized decline. Most likely physical deconditioning -No evidence of MS flare up and no evidence of new stroke on MRI -Participating in PT -Vital signs stable, tolerating diet -Awaiting SNF placement (2) Multiple sclerosis: Plan: MS With recent MRI showing no spinal/brain involvement On every 6 months ocrelizumab last received 1 month ago. No recent steroid treatment Recent follow-up with neurology, do not suspect that this is an MS flare. (3) Acute CVA (cerebrovascular accident): Plan: History of CVA No new deficits, no focal deficits on neuro exam Continue aspirin, Plavix, statin (4) Diabetes: Plan: History of type II DM, on metformin monotherapy Last A1c approximately 5% Glucose under fair control (5) Muscle weakness (generalized): Plan: most likely deconditioning participating in PT (6) Hypertension: Plan: BP stable Continue losartan, will add Amlodipine 5mg daily (7) COPD (chronic obstructive pulmonary disease): Plan: COPD Lungs are without significant wheezing on evaluation, patient denies sputum change in cough. No evidence of acute exacerbation on admission Continue Advair, albuterol as needed (8) Gastro-esophageal reflux: Plan: stable (9) Carotid stenosis, left: Plan DVT prophylaxis: SCDs, dose reduced Lovenox given age/BMI and DAPT Diet: Regular, nutrition consult placed. Aspiration precautions. Disposition: awaiting placement in SNF, according to SW, no beds anticipated this week at [facility] [place] CODE STATUS: DNR/DNI Admission and Anticipated Discharge Date Admission Date: June 09, 2022 Subjective patient seen and examined, participating in PT, awaiting SNF, tolerating diet, said he didnt sleep well Review of Systems Review of Systems: All systems reviewed are negative, apart from the ones contained in the history. Physical Exam Physical Exam: The patient is awake, alert and oriented 3, well developed and well nourished, normocephalic and atraumatic, lying in bed and in no acute distress. HEENT--PERRL, EOMI, mucous membranes and oropharynx mildly dry Neck--supple. No JVD. No bruits. Thyroid normal, trachea midline, no adenopathy. Heart--normal S1 and S2. No murmurs, rubs or gallops. Lungs--clear bilaterally, no respiratory distress, no accessory muscle use. Abdomen--normal bowel sounds and soft. Mild epigastric and left sided abdominal pain Extremities--no cyanosis or clubbing. No edema. Dermatologic--normal skin turgor, normal color, no abnormal lymph nodes, no rash. Neurologic--cranial nerves II through XII grossly intact. Rheumatologic--normal range of motion. Psychiatric--normal affect. Results & Data Results & Data ([facility]) Vital Signs (Past 12 Hours) Vital Signs Temp Pulse Resp BP Pulse Ox O2 Del Method 06/20/22 07:30 Nasal Cannula 06/20/22 08:21 98.1 F 70 17 107/67 96 Room Air 06/20/22 08:00 97.0 F L 70 16 97/59 L 95 Room Air PG Care Time/CCT Total # of Minutes Spent Total Time Spent with Patient: Total time spent is greater than 50% in coordination of care (as documented) at patient's floor/unit and/or counseling patient: Coding Level of Care Code 50326 SUB INP/OBS CARE 2/35MIN Diagnoses Weakness R53.1 Multiple sclerosis G35 Acute CVA (cerebrovascular accident) I63.9 Diabetes E11.9 Muscle weakness (generalized) M62.81 Hypertension I10 Hypertension type: essential hypertension COPD (chronic obstructive pulmonary disease) J44.9 COPD type: unspecified COPD Gastro-esophageal reflux K21.9 Esophagitis presence: esophagitis presence not specified Carotid stenosis, left I65.22 Time Spent (min) 35 (1) Hypertension Hypertension type: essential hypertension Qualified Code(s): I10 - Essential (primary) hypertension (2) COPD (chronic obstructive pulmonary disease) COPD type: unspecified COPD Qualified Code(s): J44.9 - Chronic obstructive pulmonary disease, unspecified (3) Gastro-esophageal reflux Esophagitis presence: esophagitis presence not specified Qualified Code(s): K21.9 - Gastro-esophageal reflux disease without esophagitis
[2022-06-20] MEDS: ATORVASTATIN 40 MG TAB PO SCH (20:25)
[2022-06-20] MEDS: MELATONIN 3 MG TAB PO PRN (20:25)
[2022-06-20] MEDS: VENLAFAXINE HCL XR 150 MG CAPXR PO SCH (20:25)
[2022-06-20] MEDS: QUEtiapine FUMARATE 100 MG TABLET PO SCH (20:26)
[2022-06-21] MEDS: LOSARTAN POTASSIUM 25 MG TAB PO SCH ×2 (08:06→20:58)
[2022-06-21] MEDS: CLOPIDOGREL BISULFATE 75 MG TAB PO SCH (08:07)
[2022-06-21] MEDS: amLODIPine BESYLATE 5 MG TAB PO SCH (08:08)
[2022-06-21] MEDS: TOLTERODINE TARTRATE LA 4 MG CAPCR PO SCH (08:08)
[2022-06-21] MEDS: PANTOprazole 40 MG TAB PO SCH (08:08)
[2022-06-21] MEDS: ASPIRIN 81 MG ECTAB PO SCH (08:08)
[2022-06-21] MEDS: FLUTICASONE/VILANTEROL 100/25MCG 14 PUFFS/INHALER INH SCH (08:09)
[2022-06-21] MEDS: FAMOTIDINE 20 MG TAB PO SCH ×2 (08:09→20:58)
[2022-06-21] MEDS: POLYETHYLENE (MIRALAX) 17 GM PACK PO SCH (08:10)
[2022-06-21] MEDS: ENOXAPARIN INJ 30 MG/0.3 ML SYR SQ SCH ×2 (09:37→20:58)
--- NOTE | 2022-06-21 12:50 | Hospitalist Progress Note ---
Date of Service June 21, 2022 Assessment & Plan (1) Weakness: Plan: 76-year-old male with past medical history of MS, CVA, DM 2, hypertension, depression, GERD, overactive bladder who presents with continued progressive global weakness and decline and poor appetite. Was recently seen in the hospital, no infectious etiology was found was given fluids and discharged home. -Patient presented with Weakness, generalized decline. Most likely physical deconditioning -No evidence of MS flare up and no evidence of new stroke on MRI -Participating in PT -Vital signs stable, tolerating diet -Awaiting SNF placement (2) Multiple sclerosis: Plan: MS With recent MRI showing no spinal/brain involvement On every 6 months ocrelizumab last received 1 month ago. No recent steroid treatment Recent follow-up with neurology, do not suspect that this is an MS flare. (3) Acute CVA (cerebrovascular accident): Plan: History of CVA No new deficits, no focal deficits on neuro exam Continue aspirin, Plavix, statin (4) Diabetes: Plan: History of type II DM, on metformin monotherapy Last A1c approximately 5% Glucose under fair control (5) Muscle weakness (generalized): Plan: most likely deconditioning participating in PT (6) Hypertension: Plan: BP stable Continue losartan, will add Amlodipine 5mg daily (7) COPD (chronic obstructive pulmonary disease): Plan: COPD Lungs are without significant wheezing on evaluation, patient denies sputum change in cough. No evidence of acute exacerbation on admission Continue Advair, albuterol as needed (8) Gastro-esophageal reflux: Plan: stable (9) Carotid stenosis, left: Plan DVT prophylaxis: SCDs, dose reduced Lovenox given age/BMI and DAPT Diet: Regular, nutrition consult placed. Aspiration precautions. Disposition: awaiting placement in SNF, according to SW, no beds [facility], daughter now open to other alternatives to [facility]. CODE STATUS: DNR/DNI Admission and Anticipated Discharge Date Admission Date: June 09, 2022 Subjective patient seen and examined, participating in PT, awaiting SNF, tolerating diet, said he didnt sleep well Review of Systems Review of Systems: All systems reviewed are negative, apart from the ones contained in the history. Physical Exam 2 Physical Exam: The patient is awake, alert and oriented 3, well developed and well nourished, normocephalic and atraumatic, lying in bed and in no acute distr ess. HEENT--PERRL, EOMI, mucous membranes and oropharynx mildly dry Neck--supple. No JVD. No bruits. Thyroid normal, trachea midline, no adenopathy. Heart--normal S1 and S2. No murmurs, rubs or gallops. Lungs--clear bilaterally, no respiratory distress, no accessory muscle use. Abdomen--normal bowel sounds and soft. Mild epigastric and left sided abdominal pain Extremities--no cyanosis or clubbing. No edema. Dermatologic--normal skin turgor, normal color, no abnormal lymph nodes, no rash. Neurologic--cranial nerves II through XII grossly intact. Rheumatologic--normal range of motion. Psychiatric--normal affect. Results & Data Results & Data ([facility]) Vital Signs (Past 12 Hours) Vital Signs Temp Pulse Resp BP Pulse Ox O2 Del Method 06/21/22 07:31 97.5 F L 63 16 135/82 94 Room Air PG Care Time/CCT Total # of Minutes Spent Total Time Spent with Patient: Total time spent is greater than 50% in coordination of care (as documented) at patient's floor/unit and/or counseling patient: Coding Level of Care Code 99600 SUB INP/OBS CARE 2/35MIN Diagnoses Weakness R53.1 Multiple sclerosis G35 Acute CVA (cerebrovascular accident) I63.9 Diabetes E11.9 Muscle weakness (generalized) M62.81 Hypertension I10 Hypertension type: essential hypertension COPD (chronic obstructive pulmonary disease) J44.9 COPD type: unspecified COPD Gastro-esophageal reflux K21.9 Esophagitis presence: esophagitis presence not specified Carotid stenosis, left I65.22 Time Spent (min) 35 (1) Hypertension Hypertension type: essential hypertension Qualified Code(s): I10 - Essential (primary) hypertension (2) COPD (chronic obstructive pulmonary disease) COPD type: unspecified COPD Qualified Code(s): J44.9 - Chronic obstructive pulmonary disease, unspecified (3) Gastro-esophageal reflux Esophagitis presence: esophagitis presence not specified Qualified Code(s): K21.9 - Gastro-esophageal reflux disease without esophagitis
[2022-06-21] MEDS: VENLAFAXINE HCL XR 150 MG CAPXR PO SCH (20:58)
[2022-06-21] MEDS: MELATONIN 3 MG TAB PO PRN (20:58)
[2022-06-21] MEDS: ATORVASTATIN 40 MG TAB PO SCH (20:58)
[2022-06-21] MEDS: QUEtiapine FUMARATE 100 MG TABLET PO SCH (20:58)
[2022-06-22] MEDS: POLYETHYLENE (MIRALAX) 17 GM PACK PO SCH (08:42)
[2022-06-22] MEDS: LOSARTAN POTASSIUM 25 MG TAB PO SCH ×2 (08:43→20:51)
[2022-06-22] MEDS: amLODIPine BESYLATE 5 MG TAB PO SCH (08:43)
[2022-06-22] MEDS: TOLTERODINE TARTRATE LA 4 MG CAPCR PO SCH (08:43)
[2022-06-22] MEDS: PANTOprazole 40 MG TAB PO SCH (08:44)
[2022-06-22] MEDS: ASPIRIN 81 MG ECTAB PO SCH (08:44)
[2022-06-22] MEDS: ENOXAPARIN INJ 30 MG/0.3 ML SYR SQ SCH ×2 (08:45→20:53)
[2022-06-22] MEDS: FLUTICASONE/VILANTEROL 100/25MCG 14 PUFFS/INHALER INH SCH (08:45)
[2022-06-22] MEDS: FAMOTIDINE 20 MG TAB PO SCH ×2 (12:05→20:52)
[2022-06-22] MEDS: CLOPIDOGREL BISULFATE 75 MG TAB PO SCH (12:05)
--- NOTE | 2022-06-22 14:37 | Hospitalist Progress Note ---
Date of Service June 22, 2022 Assessment & Plan (1) Weakness: Plan: 76-year-old male with past medical history of MS, CVA, DM 2, hypertension, depression, GERD, overactive bladder who presents with continued progressive global weakness and decline and poor appetite. Was recently seen in the hospital, no infectious etiology was found was given fluids and discharged home. -Patient presented with Weakness, generalized decline. Most likely physical deconditioning -No evidence of MS flare up and no evidence of new stroke on MRI -Participating in PT -Vital signs stable, tolerating diet -Awaiting SNF placement, no beds available so far (2) Multiple sclerosis: Plan: MS With recent MRI showing no spinal/brain involvement On every 6 months ocrelizumab last received 1 month ago. No recent steroid treatment Recent follow-up with neurology, do not suspect that this is an MS flare. (3) Acute CVA (cerebrovascular accident): Plan: History of CVA No new deficits, no focal deficits on neuro exam Continue aspirin, Plavix, statin (4) Diabetes: Plan: History of type II DM, on metformin monotherapy Last A1c approximately 5% Glucose under fair control (5) Muscle weakness (generalized): Plan: most likely deconditioning participating in PT (6) Hypertension: Plan: BP stable Continue losartan, will add Amlodipine 5mg daily (7) COPD (chronic obstructive pulmonary disease): Plan: COPD Lungs are without significant wheezing on evaluation, patient denies sputum change in cough. No evidence of acute exacerbation on admission Continue Advair, albuterol as needed (8) Gastro-esophageal reflux: Plan: stable (9) Carotid stenosis, left: Plan DVT prophylaxis: SCDs, dose reduced Lovenox given age/BMI and DAPT Diet: Regular, nutrition consult placed. Aspiration precautions. Disposition: awaiting placement in SNF, according to SW, no beds anticipated [facility] at [facility], daughter now open to other alternatives to [facility]. CODE STATUS: DNR/DNI Admission and Anticipated Discharge Date Admission Date: June 09, 2022 Subjective patient seen and examined, participating in PT, awaiting SNF, tolerating diet, slept better Review of Systems Review of Systems: All systems reviewed are negative, apart from the ones contained in the history. Physical Exam Physical Exam: The patient is awake, alert and oriented 3, well developed and well nourished, normocephalic and atraumatic, lying in bed and in no acute distress. HEENT--PERRL, EOMI, mucous membranes and oropharynx mildly dry Neck--supple. No JVD. No bruits. Thyroid normal, trachea midline, no adenopathy. Heart--normal S1 and S2. No murmurs, rubs or gallops. Lungs--clear bilaterally, no respiratory distress, no accessory muscle use. Abdomen--normal bowel sounds and soft. Mild epigastric and left sided abdominal pain Extremities--no cyanosis or clubbing. No edema. Dermatologic--normal skin turgor, normal color, no abnormal lymph nodes, no rash. Neurologic--cranial nerves II through XII grossly intact. Rheumatologic--normal range of motion. Psychiatric--normal affect. Results & Data Results & Data ([facility]) Vital Signs (Past 12 Hours) Vital Signs Temp Pulse Resp BP Pulse Ox O2 Del Method 06/22/22 07:31 98.4 F 62 16 136/75 95 Room Air PG Care Time/CCT Total # of Minutes Spent Total Time Spent with Patient: Total time spent is greater than 50% in coordination of care (as documented) at patient's floor/unit and/or counseling patient: Coding Level of Care Code 08927 SUB INP/OBS CARE 2/35MIN Diagnoses Weakness R53.1 Multiple sclerosis G35 Acute CVA (cerebrovascular accident) I63.9 Diabetes E11.9 Muscle weakness (generalized) M62.81 Hypertension I10 Hypertension type: essential hypertension COPD (chronic obstructive pulmonary disease) J44.9 COPD type: unspecified COPD Gastro-esophageal reflux K21.9 Esophagitis presence: esophagitis presence not specified Carotid stenosis, left I65.22 Time Spent (min) 35 (1) Hypertension Hypertension type: essential hypertension Qualified Code(s): I10 - Essential (primary) hypertension (2) COPD (chronic obstructive pulmonary disease) COPD type: unspecified COPD Qualified Code(s): J44.9 - Chronic obstructive pulmonary disease, unspecified (3) Gastro-esophageal reflux Esophagitis presence: esophagitis presence not specified Qualified Code(s): K21.9 - Gastro-esophageal reflux disease without esophagitis
[2022-06-22] MEDS: MELATONIN 3 MG TAB PO PRN (20:51)
[2022-06-22] MEDS: QUEtiapine FUMARATE 100 MG TABLET PO SCH (20:52)
[2022-06-22] MEDS: VENLAFAXINE HCL XR 150 MG CAPXR PO SCH (20:52)
[2022-06-22] MEDS: ATORVASTATIN 40 MG TAB PO SCH (20:52)
[2022-06-23] MEDS: FAMOTIDINE 20 MG TAB PO SCH ×2 (08:37→20:23)
[2022-06-23] MEDS: CLOPIDOGREL BISULFATE 75 MG TAB PO SCH (08:37)
[2022-06-23] MEDS: LOSARTAN POTASSIUM 25 MG TAB PO SCH ×2 (08:38→20:24)
[2022-06-23] MEDS: ASPIRIN 81 MG ECTAB PO SCH (08:38)
[2022-06-23] MEDS: PANTOprazole 40 MG TAB PO SCH (08:38)
[2022-06-23] MEDS: POLYETHYLENE (MIRALAX) 17 GM PACK PO SCH (08:38)
[2022-06-23] MEDS: amLODIPine BESYLATE 5 MG TAB PO SCH (08:38)
[2022-06-23] MEDS: ENOXAPARIN INJ 30 MG/0.3 ML SYR SQ SCH ×2 (08:39→20:36)
[2022-06-23] MEDS: TOLTERODINE TARTRATE LA 4 MG CAPCR PO SCH (08:39)
[2022-06-23] MEDS: FLUTICASONE/VILANTEROL 100/25MCG 14 PUFFS/INHALER INH SCH (08:48)
--- NOTE | 2022-06-23 12:34 | Hospitalist Progress Note ---
Date of Service June 23, 2022 Assessment & Plan (1) Weakness: Plan: 76-year-old male with past medical history of MS, CVA, DM 2, hypertension, depression, GERD, overactive bladder who presents with continued progressive global weakness and decline and poor appetite. Was recently seen in the hospital, no infectious etiology was found was given fluids and discharged home. -Patient presented with Weakness, generalized decline. Most likely physical deconditioning -No evidence of MS flare up and no evidence of new stroke on MRI -Participating in PT -Vital signs stable, tolerating diet -Awaiting SNF placement, no beds available so far (2) Multiple sclerosis: Plan: MS With recent MRI showing no spinal/brain involvement On every 6 months ocrelizumab last received 1 month ago. No recent steroid treatment Recent follow-up with neurology, do not suspect that this is an MS flare. (3) Acute CVA (cerebrovascular accident): Plan: History of CVA No new deficits, no focal deficits on neuro exam Continue aspirin, Plavix, statin (4) Diabetes: Plan: History of type II DM, on metformin monotherapy Last A1c approximately 5% Glucose under fair control (5) Muscle weakness (generalized): Plan: most likely deconditioning participating in PT (6) Hypertension: Plan: BP stable Continue losartan, will add Amlodipine 5mg daily (7) COPD (chronic obstructive pulmonary disease): Plan: COPD Lungs are without significant wheezing on evaluation, patient denies sputum change in cough. No evidence of acute exacerbation on admission Continue Advair, albuterol as needed (8) Gastro-esophageal reflux: Plan: stable (9) Carotid stenosis, left: Plan DVT prophylaxis: SCDs, dose reduced Lovenox given age/BMI and DAPT Diet: Regular, nutrition consult placed. Aspiration precautions. Disposition: awaiting placement in SNF, according to SW, no beds anticipated [facility] at [facility], daughter now open to other alternatives to [facility]. CODE STATUS: DNR/DNI Admission and Anticipated Discharge Date Admission Date: June 09, 2022 Subjective patient seen and examined, participating in PT, usually ambulating the hallways, awaiting SNF, tolerating diet, Review of Systems Review of Systems: All systems reviewed are negative, apart from the ones contained in the history. Physical Exam Physical Exam: The patient is awake, alert and oriented 3, well developed and well nourished, normocephalic and atraumatic, lying in bed and in no acute distress. HEENT--PERRL, EOMI, mucous membranes and oropharynx mildly dry Neck--supple. No JVD. No bruits. Thyroid normal, trachea midline, no adenopathy. Heart--normal S1 and S2. No murmurs, rubs or gallops. Lungs--clear bilaterally, no respiratory distress, no accessory muscle use. Abdomen--normal bowel sounds and soft. Mild epigastric and left sided abdominal pain Extremities--no cyanosis or clubbing. No edema. Dermatologic--normal skin turgor, normal color, no abnormal lymph nodes, no rash. Neurologic--cranial nerves II through XII grossly intact. Rheumatologic--normal range of motion. Psychiatric--normal affect. Results & Data Results & Data ([facility]) Vital Signs (Past 12 Hours) Vital Signs Temp Pulse Resp BP Pulse Ox O2 Del Method 06/23/22 07:37 97.5 F L 72 18 126/78 94 Room Air PG Care Time/CCT Total # of Minutes Spent Total Time Spent with Patient: Total time spent is greater than 50% in coordination of care (as documented) at patient's floor/unit and/or counseling patient: Coding Level of Care Code 19151 SUB INP/OBS CARE 2/35MIN Diagnoses Weakness R53.1 Multiple sclerosis G35 Acute CVA (cerebrovascular accident) I63.9 Diabetes E11.9 Muscle weakness (generalized) M62.81 Hypertension I10 Hypertension type: essential hypertension COPD (chronic obstructive pulmonary disease) J44.9 COPD type: unspecified COPD Gastro-esophageal reflux K21.9 Esophagitis presence: esophagitis presence not specified Carotid stenosis, left I65.22 Time Spent (min) 35 (1) Hypertension Hypertension type: essential hypertension Qualified Code(s): I10 - Essential (primary) hypertension (2) COPD (chronic obstructive pulmonary disease) COPD type: unspecified COPD Qualified Code(s): J44.9 - Chronic obstructive pulmonary disease, unspecified (3) Gastro-esophageal reflux Esophagitis presence: esophagitis presence not specified Qualified Code(s): K21.9 - Gastro-esophageal reflux disease without esophagitis
[2022-06-23] MEDS: ATORVASTATIN 40 MG TAB PO SCH (20:24)
[2022-06-23] MEDS: QUEtiapine FUMARATE 100 MG TABLET PO SCH (20:24)
[2022-06-23] MEDS: VENLAFAXINE HCL XR 150 MG CAPXR PO SCH (20:24)
[2022-06-24 07:54] LABS: Hematocrit (blood only) 38.9 % (40.1-51.0); Hemoglobin 13.7 g/dl (14.0-18.0); Mean Corpuscular Hemoglobin 30.4 pg (25.0-34.0); Mean Corpuscular Hgb Conc 35.2 g/dL (32.0-36.0); Mean Corpuscular Volume 86.4 fL (80.0-100.0); Mean Platelet Volume 10.1 fL (9.4-12.4); Platelet Count 150 K/uL (130-400); RDW Coefficient of Variation 12.9 % (11.5-14.5); RDW Standard Deviation 40.4 fL (36.4-46.3); White Blood Count 5.76 K/ul (4.8-10.8)
[2022-06-24] MEDS: CLOPIDOGREL BISULFATE 75 MG TAB PO SCH (08:07)
[2022-06-24] MEDS: amLODIPine BESYLATE 5 MG TAB PO SCH (08:07)
[2022-06-24] MEDS: POLYETHYLENE (MIRALAX) 17 GM PACK PO SCH (08:08)
[2022-06-24] MEDS: LOSARTAN POTASSIUM 25 MG TAB PO SCH ×2 (08:08→20:16)
[2022-06-24] MEDS: PANTOprazole 40 MG TAB PO SCH (08:08)
[2022-06-24] MEDS: ASPIRIN 81 MG ECTAB PO SCH (08:08)
[2022-06-24] MEDS: TOLTERODINE TARTRATE LA 4 MG CAPCR PO SCH (08:08)
[2022-06-24] MEDS: ENOXAPARIN INJ 30 MG/0.3 ML SYR SQ SCH ×2 (08:09→20:17)
[2022-06-24] MEDS: FAMOTIDINE 20 MG TAB PO SCH ×2 (08:09→20:15)
[2022-06-24 08:40] LABS: Calcium 8.3 mg/dl (8.5-10.1); Potassium 3.8 mmol/L (3.5-5.1)
[2022-06-24 08:45] LABS: BUN Creatinine Ratio 32.4 (10-20); Creatinine Clr Calc Pharmacy 94.7 ml/min; Est GFR (African American) 104.6 ml/min; Est GFR (Non-African American) 90.2 ml/min
[2022-06-24] MEDS: FLUTICASONE/VILANTEROL 100/25MCG 14 PUFFS/INHALER INH SCH (11:25)
--- NOTE | 2022-06-24 12:29 | Hospitalist Progress Note ---
Date of Service June 24, 2022 Assessment & Plan (1) Right leg DVT: Plan: He has 2 nonocclusive thrombi in his RLE on doppler today. It is uncertain how old these are; nonocclussive nature suggests but does not confirm that they may be chronic. Either way they should be treated. He is not very mobile, has been hospitalized for lengthy period of time, etc. 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 Anticoagulation is NOT contraindicated despite these small aneurysms per Dr Bach. I then called and spoke with the on-call crane hooker at [facility]. Dr Edmund Gomes of that group operated on Mr Ornelas's right eye on 05/12/22 in [place]. He had a vitreous hemorrhage as well as retinal detachment. He underwent vitrectomy and retinal repair with gas bubble, etc. The on-call crane hooker stated it was permissible to start full-strength anticoagulation for the DVT given the surgery was on 05/12/22. He already received his PM lovenox by the time I had made all of the above phone calls. Thus, will stop the lovenox and start eliquis in the AM. As for aspirin and plavix will need to contact neurology to see which of these can be stopped moving forward. The asa/plavix were being used for secondary prevention of stroke. He has had multiple strokes in the past. (2) Retinal detachment, right: Plan: s/p surgery for such in [place] 05/12/22 as in #1 above (3) Cerebral aneurysm, nonruptured: Plan: 3mm saccular aneurysm of ant. communicating artery seen on prior CTAs. Additionally, ?small saccular aneurysm vs ulcerated plaque of R ICA on past CTA. see #1 above. These should be followed with yearly CTAs. (4) Weakness: Plan: exact etiology uncertain. no MS flare. no infectious etiologies found this admission. CBC, TSH, B12 all wnl this admission or in recent past. cont PT/OT. will be placed in SNF post-d/c for rehab. (5) Multiple sclerosis: Plan: With recent MRI showing no spinal/brain involvement On every 6 months ocrelizumab last received 1 month ago. No recent steroid treatment Recent follow-up with neurology in the office and MS thought to be stable (06/08/22) (6) Acute CVA (cerebrovascular accident): Plan: Multiple CVAs - ischemic in nature - over the last several years. Most recent fall 2021 WHILE taking asa/plavix. The asa at that time was increased to 325mg daily. He remains on asa albeit at lower dose of 81mg. He is also on statin and plavix. Now that anticoagulation is being considered will need to contact neurology re: their opinion about dropping the asa or plavix so as to avoid "triple therapy." (7) Diabetes: Plan: all HbA1c's dating back to 2019 have been <6.5% most recent in fall 2021 it was well below 6% no Rx needed (8) Muscle weakness (generalized): Plan: cont PT/OT he has made progress while here - walked 200 feet with PT yesterday (9) Hypertension: Plan: Controlled Cont losartan Cont Amlodipine (10) COPD (chronic obstructive pulmonary disease): Plan: No flare at this time Cont inhalers (11) Gastro-esophageal reflux: Plan: Cont PPI (12) Carotid stenosis, left: Plan: 10/2021 CTA neck did not show any significant stenosis Plan updated pt's daughter extensively by phone this evening very complex care coordination today - multiple calls to [facility], and his daughter; extensive chart review; etc. total time today 80 minutes Admission and Anticipated Discharge Date Admission Date: June 09, 2022 Subjective patient sitting in chair denies any new complaints we discussed post-discharge plans including SNF placement for rehab he is eating well drinking ok Review of Systems Review of Systems: gen - energy is ok; appetite is ok; no fevers cv - no chest pain; he was not aware of RLE edema pulm - no dyspnea or cough GI - no abd pain or nausea/emesis neuro - denies h/o ICH eyes - had retinal surgery in [place] in May (retinal detachment) Physical Exam Physical Exam: gen - NAD, pleasant eyes - conjunctiva/sclera mildly injected; left sclera/conjunctiva wnl mouth - MMM neck - no JVD heart - RRR, s1 s2, no murmur lungs - CTA b/l abd - soft NT ND BS+ ext - 1+ edema R foot/ankle; no edema L foot/ankle; pulses 2+ b/l Results & Data Results & Data ([facility]) Vital Signs (Past 12 Hours) Vital Signs Temp Pulse Resp BP Pulse Ox O2 Del Method 06/24/22 07:19 36.5 C 69 18 133/75 94 Room Air Laboratory Results Laboratory Results - last 24 hr 06/24/22 06/24/22 07:34 07:34 WBC 5.76 RBC 4.50 L Hgb 13.7 L Hct 38.9 L MCV 86.4 MCH 30.4 MCHC 35.2 RDW Std Deviation 40.4 RDW Coeff of Lilia 12.9 Plt Count 150 MPV 10.1 Sodium 139 Potassium 3.8 Chloride 108 H Carbon Dioxide 28 Anion Gap 3 BUN 24 H Creatinine 0.74 Est Cr Clr Drug Dosing 94.7 Est GFR ( Amer) 104.6 Est GFR (Non-Af Amer) 90.2 BUN/Creatinine Ratio 32.4 H Glucose 88 Calcium 8.3 L Diagnostic Findings Venous Doppler Study 06/24/22 12:28 US venous doppler LE RT CLINICAL HISTORY: RLE edema; prolonged hospital stay; r/o DVT TECHNIQUE: Right lower extremity real-time compression venous ultrasound with Color Doppler imaging. Utilizing real-time ultrasonic imaging multiple real time high-resolution ultrasonic images with compression and noncompression maneuvers of the deep venous system in addition to color doppler imaging were performed from the common femoral vein through the proximal calf veins. COMPARISON: None available at the time of this dictation. FINDINGS/IMPRESSION: There is a nonocclusive thrombus in the profunda femoris vein. A nonocclusive thrombus is also seen in the peroneal vein. ACT 112: Negative or not required by law. Electronically signed by: Ayo De Los Santos M.D. 06/24/2022 4:37 PM PG Care Time/CCT Total # of Minutes Spent Total Time Spent with Patient: Total time spent is greater than 50% in coordination of care (as documented) at patient's floor/unit and/or counseling patient: Prolonged Care Time Prolonged Care Time: Yes Total Prolonged Care Time: 80 Coding Level of Care Code 23061 SUB INP/OBS CARE 3/50MIN (25 - SIGNIFICANT, SEPARATELY IDENTIFIABLE ) Diagnoses Right leg DVT I82.401 Retinal detachment, right H33.21 Cerebral aneurysm, nonruptured I67.1 Weakness R53.1 Multiple sclerosis G35 Acute CVA (cerebrovascular accident) I63.9 Diabetes E11.9 Muscle weakness (generalized) M62.81 Hypertension I10 Hypertension type: essential hypertension COPD (chronic obstructive pulmonary disease) J44.9 COPD type: unspecified COPD Gastro-esophageal reflux K21.9 Esophagitis presence: esophagitis presence not specified Carotid stenosis, left I65.22 Additional Codes Prolonged Care Time - Prolonged Care Time: Yes ([id number]) (1) COPD (chronic obstructive pulmonary disease) COPD type: unspecified COPD Qualified Code(s): J44.9 - Chronic obstructive pulmonary disease, unspecified (2) Gastro-esophageal reflux Esophagitis presence: esophagitis presence not specified Qualified Code(s): K21.9 - Gastro-esophageal reflux disease without esophagitis (3) Hypertension Hypertension type: essential hypertension Qualified Code(s): I10 - Essential (primary) hypertension
--- NOTE | 2022-06-24 16:39 | Ultrasound Report ---
US venous doppler LE RT CLINICAL HISTORY: RLE edema; prolonged hospital stay; r/o DVT TECHNIQUE: Right lower extremity real-time compression venous ultrasound with Color Doppler imaging. Utilizing real-time ultrasonic imaging multiple real time high-resolution ultrasonic images with comp ression and noncompression maneuvers of the deep venous system in addition to color doppler imaging w ere performed from the common femoral vein through the proximal calf veins. COMPARISON: None available at the time of this dictation. FINDINGS/IMPRESSION: There is a nonocclusive thrombus in the profunda femoris vein. A nonocclusive thrombus is also seen i n the peroneal vein. ACT 112: Negative or not required by law. Electronically signed by: Ayo De Los Santos M.D. 06/24/2022 4:37 PM
[2022-06-24] MEDS: ATORVASTATIN 40 MG TAB PO SCH (20:16)
[2022-06-24] MEDS: VENLAFAXINE HCL XR 150 MG CAPXR PO SCH (20:16)
[2022-06-24] MEDS: QUEtiapine FUMARATE 100 MG TABLET PO SCH (20:16)
[2022-06-25] MEDS: FLUTICASONE/VILANTEROL 100/25MCG 14 PUFFS/INHALER INH SCH (08:33)
[2022-06-25] MEDS: POLYETHYLENE (MIRALAX) 17 GM PACK PO SCH (08:34)
[2022-06-25] MEDS: PANTOprazole 40 MG TAB PO SCH (08:34)
[2022-06-25] MEDS: amLODIPine BESYLATE 5 MG TAB PO SCH (08:34)
[2022-06-25] MEDS: TOLTERODINE TARTRATE LA 4 MG CAPCR PO SCH (08:35)
[2022-06-25] MEDS: FAMOTIDINE 20 MG TAB PO SCH ×2 (08:35→20:51)
[2022-06-25] MEDS: LOSARTAN POTASSIUM 25 MG TAB PO SCH ×2 (08:35→20:51)
[2022-06-25] MEDS ORDERED: APIXABAN 5 MG TABLET PO SCH (09:00)
[2022-06-25] MEDS: APIXABAN 5 MG TABLET PO SCH ×2 (11:00→20:51)
--- NOTE | 2022-06-25 20:38 | Hospitalist Progress Note ---
Date of Service June 25, 2022 Assessment & Plan (1) Right leg DVT: Plan: He has 2 nonocclusive thrombi in his RLE on doppler 06/24/22. It is uncertain how old these are; however- nonocclusive nature suggests but does not confirm that they may be chronic. Either way they should be treated. He is not very mobile, has been hospitalized for lengthy period of time, etc. 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 Anticoagulation is NOT contraindicated despite these small aneurysms per Dr Bach. They do require yearly radiological exams. I then called and spoke with the on-call riffler tender at [facility]. Dr Edmund Gomes of that group operated on Mr Ornelas's right eye on 05/12/22 in [place]. He had a vitreous hemorrhage as well as retinal detachment. He underwent vitrectomy and retinal repair with gas bubble, etc. The on-call riffler tender stated it was permissible to start full-strength anticoagulation for the DVT given the surgery was on 05/12/22. Spoke briefly with neurology regarding his anti-platelet agents. Given we are starting anticoagulation we can stop asa/plavix to reduce his bleeding risk. Spoke briefly with vascular surgery - given the clots appear chronic - can simply start Eliquis at 5mg twice daily (rather than 1 week of 10mg BID). Discussed all of this in detail with patient today. 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 Additionally, ?small saccular aneurysm vs ulcerated plaque of R ICA on past CTA. see #1 above. These should be followed with yearly CTAs. (4) Weakness: Plan: exact etiology uncertain. no MS flare. no infectious etiologies found this admission. CBC, TSH, B12 all wnl this admission or in recent past. cont PT/OT. will be placed in SNF post-d/c for rehab. (5) Multiple sclerosis: Plan: With recent MRI showing no spinal/brain involvement On every 6 months ocrelizumab last received 1 month ago. No recent steroid treatment Recent follow-up with neurology in the office and MS thought to be stable (06/08/22) (6) Acute CVA (cerebrovascular accident): Plan: Multiple CVAs - ischemic in nature - over the last several years. Most recent fall 2021 WHILE taking asa/plavix. The asa at that time was increased to 325mg daily. He remains on asa albeit at lower dose of 81mg. He is also on statin and plavix. Now that anticoagulation is being started will stop asa/plavix. Will place a formal consult to neuro on Sunday to ensure this is best plan moving forward. (7) Diabetes: Plan: all HbA1c's dating back to 2019 have been <6.5% most recent in fall 2021 it was well below 6% no Rx needed (8) Muscle weakness (generalized): Plan: cont PT/OT he has made progress while here - walked 200 feet with PT recently (9) Hypertension: Plan: Controlled Cont losartan Cont Amlodipine (10) COPD (chronic obstructive pulmonary disease): Plan: No flare at this time Cont inhalers (11) Gastro-esophageal reflux: Plan: Cont PPI (12) Carotid stenosis, left: Plan: 10/2021 CTA neck did not show any significant stenosis Plan updated pt's daughter extensively by phone 06/24/22 Admission and Anticipated Discharge Date Admission Date: June 09, 2022 Subjective no events overnight or today eating well denies complaints we had lengthy discussion about the RLE doppler showing DVTs I counseled him that I had spoken [place] [facility] presence of small aneurysm previously seen on head CTA, spoke with [facility] to ensure it was safe to use anticoagulation given his eye surgery in early 05/2022, spoke with neurology regarding his anti-platelet agents and anticoagulation, and that I had spoken with vascular surgery. plan moving forward is to stop his asa/plavix and just use Eliquis 5mg BID. he states he picked a scab on his right arm and it bled today. Review of Systems Review of Systems: cv - no chest pain pulm - no dyspnea GI - no pain Physical Exam Physical Exam: gen - NAD, pleasant eyes - conjunctiva/sclera mildly injected; left sclera/conjunctiva wnl - no change; no drainage either eye mouth - MMM neck - no JVD heart - RRR, s1 s2, no murmur lungs - CTA b/l abd - soft NT ND BS+ ext - <1+ edema R foot/ankle; no edema L foot/ankle; pulses 2+ b/l Results & Data Results & Data ([facility]) Vital Signs (Past 12 Hours) Vital Signs Temp Pulse Resp BP Pulse Ox O2 Del Method 06/25/22 14:47 36.9 C 74 16 129/69 94 Room Air Laboratory Results Laboratory Results - last 48 hr 06/24/22 06/24/22 07:34 07:34 WBC 5.76 RBC 4.50 L Hgb 13.7 L Hct 38.9 L MCV 86.4 MCH 30.4 MCHC 35.2 RDW Std Deviation 40.4 RDW Coeff of Lilia 12.9 Plt Count 150 MPV 10.1 Sodium 139 Potassium 3.8 Chloride 108 H Carbon Dioxide 28 Anion Gap 3 BUN 24 H Creatinine 0.74 Est Cr Clr Drug Dosing 94.7 Est GFR ( Amer) 104.6 Est GFR (Non-Af Amer) 90.2 BUN/Creatinine Ratio 32.4 H Glucose 88 Calcium 8.3 L PG Care Time/CCT Total # of Minutes Spent Total Time Spent with Patient: Total time spent is greater than 50% in coordination of care (as documented) at patient's floor/unit and/or counseling patient: Coding Level of Care Code 68415 SUB INP/OBS CARE 2/35MIN Diagnoses Right leg DVT I82.401 Retinal detachment, right H33.21 Cerebral aneurysm, nonruptured I67.1 Weakness R53.1 Multiple sclerosis G35 Acute CVA (cerebrovascular accident) I63.9 Diabetes E11.9 Muscle weakness (generalized) M62.81 Hypertension I10 Hypertension type: essential hypertension COPD (chronic obstructive pulmonary disease) J44.9 COPD type: unspecified COPD Gastro-esophageal reflux K21.9 Esophagitis presence: esophagitis presence not specified Carotid stenosis, left I65.22 (1) COPD (chronic obstructive pulmonary disease) COPD type: unspecified COPD Qualified Code(s): J44.9 - Chronic obstructive pulmonary disease, unspecified (2) Gastro-esophageal reflux Esophagitis presence: esophagitis presence not specified Qualified Code(s): K21.9 - Gastro-esophageal reflux disease without esophagitis (3) Hypertension Hypertension type: essential hypertension Qualified Code(s): I10 - Essential (primary) hypertension
[2022-06-25] MEDS: VENLAFAXINE HCL XR 150 MG CAPXR PO SCH (20:50)
[2022-06-25] MEDS: QUEtiapine FUMARATE 100 MG TABLET PO SCH (20:51)
[2022-06-25] MEDS: ATORVASTATIN 40 MG TAB PO SCH (20:51)
[2022-06-26 07:43] LABS: BUN Creatinine Ratio 26.9 (10-20); Calcium 8.5 mg/dl (8.5-10.1); Creatinine Clr Calc Pharmacy 104.6 ml/min; Est GFR (African American) 108.9 ml/min; Potassium 3.8 mmol/L (3.5-5.1)
[2022-06-26] MEDS: POLYETHYLENE (MIRALAX) 17 GM PACK PO SCH (08:51)
[2022-06-26] MEDS: APIXABAN 5 MG TABLET PO SCH ×2 (08:51→20:33)
[2022-06-26] MEDS: FAMOTIDINE 20 MG TAB PO SCH ×2 (08:51→20:34)
[2022-06-26] MEDS: TOLTERODINE TARTRATE LA 4 MG CAPCR PO SCH (08:51)
[2022-06-26] MEDS: PANTOprazole 40 MG TAB PO SCH (08:51)
[2022-06-26] MEDS: FLUTICASONE/VILANTEROL 100/25MCG 14 PUFFS/INHALER INH SCH (08:51)
[2022-06-26] MEDS: amLODIPine BESYLATE 5 MG TAB PO SCH ×2 (08:51→20:34)
[2022-06-26] MEDS: LOSARTAN POTASSIUM 25 MG TAB PO SCH ×2 (08:51→20:33)
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
[2022-06-26] MEDS: QUEtiapine FUMARATE 100 MG TABLET PO SCH (20:33)
[2022-06-26] MEDS: ATORVASTATIN 40 MG TAB PO SCH (20:33)
[2022-06-26] MEDS: VENLAFAXINE HCL XR 150 MG CAPXR PO SCH (20:34)
[2022-06-26] MEDS: MELATONIN 3 MG TAB PO PRN (20:36)
[2022-06-27] MEDS: LOSARTAN POTASSIUM 25 MG TAB PO SCH ×2 (07:52→20:45)
[2022-06-27] MEDS: amLODIPine BESYLATE 5 MG TAB PO SCH ×2 (07:52→20:45)
[2022-06-27] MEDS: FAMOTIDINE 20 MG TAB PO SCH ×2 (07:52→20:45)
[2022-06-27] MEDS: APIXABAN 5 MG TABLET PO SCH ×2 (07:53→20:45)
[2022-06-27] MEDS: FLUTICASONE/VILANTEROL 100/25MCG 14 PUFFS/INHALER INH SCH (07:53)
[2022-06-27] MEDS: PANTOprazole 40 MG TAB PO SCH (07:53)
[2022-06-27] MEDS: POLYETHYLENE (MIRALAX) 17 GM PACK PO SCH (07:53)
[2022-06-27] MEDS: TOLTERODINE TARTRATE LA 4 MG CAPCR PO SCH (07:53)
[2022-06-27 08:41] LABS: Hematocrit (blood only) 40.8 % (40.1-51.0); Hemoglobin 14.1 g/dl (14.0-18.0); Mean Corpuscular Hemoglobin 30.1 pg (25.0-34.0); Mean Corpuscular Hgb Conc 34.6 g/dL (32.0-36.0); Mean Corpuscular Volume 87.2 fL (80.0-100.0); Mean Platelet Volume 9.7 fL (9.4-12.4); Platelet Count 122 K/uL (130-400); RDW Coefficient of Variation 13.1 % (11.5-14.5); RDW Standard Deviation 41.8 fL (36.4-46.3); Red Blood Count 4.68 M/uL (4.63-6.08); White Blood Count 5.11 K/ul (4.8-10.8)
[2022-06-27] MEDS: VENLAFAXINE HCL XR 150 MG CAPXR PO SCH (20:45)
[2022-06-27] MEDS: MELATONIN 3 MG TAB PO PRN (20:45)
[2022-06-27] MEDS: ATORVASTATIN 40 MG TAB PO SCH (20:45)
[2022-06-27] MEDS: QUEtiapine FUMARATE 100 MG TABLET PO SCH (20:45)
[2022-06-28] MEDS: APIXABAN 5 MG TABLET PO SCH ×2 (11:10→21:12)
[2022-06-28] MEDS: TOLTERODINE TARTRATE LA 4 MG CAPCR PO SCH (11:10)
[2022-06-28] MEDS: FLUTICASONE/VILANTEROL 100/25MCG 14 PUFFS/INHALER INH SCH (11:10)
[2022-06-28] MEDS: POLYETHYLENE (MIRALAX) 17 GM PACK PO SCH (11:10)
[2022-06-28] MEDS: PANTOprazole 40 MG TAB PO SCH (11:10)
[2022-06-28] MEDS: FAMOTIDINE 20 MG TAB PO SCH ×2 (11:10→21:11)
[2022-06-28 11:17] LABS: Basophils # (auto) 0.02 K/uL (0-0.2); Basophils % (auto) 0.3 %; Eosinophils # (auto) 0.17 K/uL (0-0.50); Eosinophils % (auto) 2.9 %; Hematocrit (blood only) 38.7 % (40.1-51.0); Hemoglobin 13.6 g/dl (14.0-18.0); Immature Granulocytes # (auto) 0.01 K/uL (0.00-0.02); Immature Granulocytes % (auto) 0.2 %; Lymphocytes # (auto) 1.43 K/uL (1.2-3.4); Lymphocytes % (auto) 24.7 %; Mean Corpuscular Hemoglobin 30.5 pg (25.0-34.0); Mean Corpuscular Hgb Conc 35.1 g/dL (32.0-36.0); Mean Corpuscular Volume 86.8 fL (80.0-100.0); Mean Platelet Volume 10.2 fL (9.4-12.4); Monocytes # (auto) 0.78 K/uL (0.24-0.82); Monocytes % (auto) 13.4 %; Neutrophils # (auto) 3.39 K/uL (1.4-6.5); Neutrophils % (auto) 58.5 %; Platelet Count 131 K/uL (130-400); RDW Standard Deviation 41.1 fL (36.4-46.3); Red Blood Count 4.46 M/uL (4.63-6.08)
[2022-06-28] MEDS: amLODIPine BESYLATE 5 MG TAB PO SCH ×2 (11:19→21:12)
[2022-06-28] MEDS: LOSARTAN POTASSIUM 25 MG TAB PO SCH ×2 (11:20→21:11)
[2022-06-28 11:53] LABS: Calcium 8.4 mg/dl (8.5-10.1); Creatinine Clr Calc Pharmacy 80.5 ml/min; Est GFR (African American) 97.8 ml/min; Est GFR (Non-African American) 84.4 ml/min; Potassium 3.8 mmol/L (3.5-5.1)
--- NOTE | 2022-06-28 18:53 | Hospitalist Progress Note ---
Date of Service June 28, 2022 Assessment & Plan (1) Right leg DVT: Plan: He has 2 nonocclusive thrombi in his RLE on doppler 06/24/22. It is uncertain how old these are; however- nonocclusive nature suggests but does not confirm that they may be chronic. Either way they should be treated. He is not very mobile, has been hospitalized for lengthy period of time, etc. 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 Anticoagulation is NOT contraindicated despite these small aneurysms per Dr Bach. They do require yearly radiological exams. I then called and spoke with the on-call operations and maintenance manager at [facility]. Dr Edmund Gomes of that group operated on Mr Ornelas's right eye on 05/12/22 in [place]. He had a vitreous hemorrhage as well as retinal detachment. He underwent vitrectomy and retinal repair with gas bubble, etc. The on-call operations and maintenance manager stated it was permissible to start full-strength anticoagulation for the DVT given the surgery was on 05/12/22. Spoke briefly with neurology regarding his anti-platelet agents. Given we are starting anticoagulation we can stop asa/plavix to reduce his bleeding risk. Spoke briefly with vascular surgery - given the clots appear chronic - can simply start Eliquis at 5mg twice daily (rather than 1 week of 10mg BID). Discussed all of this in detail with patient. (2) Retinal detachment, right: Plan: s/p surgery for such in [place] 05/12/22 as in #1 above (3) Cerebral aneurysm, nonruptured: Plan: 3mm saccular aneurysm of ant. communicating artery seen on prior CTAs. Additionally, ?small saccular aneurysm vs ulcerated plaque of R ICA on past CTA. see #1 above. These should be followed with yearly CTAs. (4) Weakness: Plan: exact etiology uncertain. no MS flare. no infectious etiologies found this admission. CBC, TSH, B12 all wnl this admission or in recent past. cont PT/OT. will be placed in SNF post-d/c for rehab. (5) Multiple sclerosis: Plan: With recent MRI showing no spinal/brain involvement On every 6 months ocrelizumab last received 1 month ago. No recent steroid treatment Recent follow-up with neurology in the office and MS thought to be stable (06/08/22) (6) Acute CVA (cerebrovascular accident): Plan: Multiple CVAs - ischemic in nature - over the last several years. Most recent fall 2021 WHILE taking asa/plavix. The asa at that time was increased to 325mg daily. He remains on asa albeit at lower dose of 81mg. He is also on statin and plavix. Now that anticoagulation is being started will stop asa/plavix. Will place a formal consult to neuro on Sunday to ensure this is best plan moving forward. (7) Diabetes: Plan: all HbA1c's dating back to 2019 have been <6.5% most recent in fall 2021 it was well below 6% no Rx needed (8) Muscle weakness (generalized): Plan: cont PT/OT to rehab post-discharge (9) Hypertension: Plan: Controlled Cont losartan Cont Amlodipine (10) COPD (chronic obstructive pulmonary disease): Plan: No flare at this time Cont inhalers (11) Gastro-esophageal reflux: Plan: Cont PPI (12) Carotid stenosis, left: Plan: 10/2021 CTA neck did not show any significant stenosis (13) Fall: Plan: fortunately no injuries from today's fall/event Plan updated pt's daughter extensively by phone 06/24/22 Admission and Anticipated Discharge Date Admission Date: June 09, 2022 Subjective Episode of fall near syncope today Review of Systems Review of Systems: cv - no chest pain pulm - no dyspnea gen - chronic fatigue GI - no pain musculo - no pain in any limb or joint Physical Exam Physical Exam: gen - NAD, pleasant eyes - conjunctiva/sclera mildly injected; left sclera/conjunctiva wnl mouth - MMM neck - no JVD heart - RRR, s1 s2, no murmur lungs - CTA b/l abd - soft NT ND BS+ ext - trace edema R foot/ankle; no edema L foot/ankle; pulses 2+ b/l musculo - no signs of trauma to either shoulder, arms, legs, pelvis, back, etc. Results & Data Results & Data ([facility]) Vital Signs (Past 12 Hours) Vital Signs Temp Pulse Resp BP Pulse Ox O2 Del Method 06/28/22 18:16 Room Air 06/28/22 15:31 36.6 C 68 18 115/72 94 Room Air 06/28/22 08:42 36.3 C L 67 18 104/65 95 Room Air PG Care Time/CCT Total # of Minutes Spent Total Time Spent with Patient: Total time spent is greater than 50% in coordination of care (as documented) at patient's floor/unit and/or counseling patient: Coding Level of Care Code 49124 SUB INP/OBS CARE 2/35MIN Diagnoses Right leg DVT I82.401 Retinal detachment, right H33.21 Cerebral aneurysm, nonruptured I67.1 Weakness R53.1 Multiple sclerosis G35 Acute CVA (cerebrovascular accident) I63.9 Diabetes E11.9 Muscle weakness (generalized) M62.81 Hypertension I10 Hypertension type: essential hypertension COPD (chronic obstructive pulmonary disease) J44.9 COPD type: unspecified COPD Gastro-esophageal reflux K21.9 Esophagitis presence: esophagitis presence not specified Carotid stenosis, left I65.22 Fall W19.XXXA (1) COPD (chronic obstructive pulmonary disease) COPD type: unspecified COPD Qualified Code(s): J44.9 - Chronic obstructive pulmonary disease, unspecified (2) Gastro-esophageal reflux Esophagitis presence: esophagitis presence not specified Qualified Code(s): K21.9 - Gastro-esophageal reflux disease without esophagitis (3) Hypertension Hypertension type: essential hypertension Qualified Code(s): I10 - Essential (primary) hypertension
[2022-06-28] MEDS: MELATONIN 3 MG TAB PO PRN (21:11)
[2022-06-28] MEDS: VENLAFAXINE HCL XR 150 MG CAPXR PO SCH (21:12)
[2022-06-28] MEDS: ATORVASTATIN 40 MG TAB PO SCH (21:12)
[2022-06-28] MEDS: QUEtiapine FUMARATE 100 MG TABLET PO SCH (21:12)
[2022-06-29] MEDS: PANTOprazole 40 MG TAB PO SCH (09:32)
[2022-06-29] MEDS: FAMOTIDINE 20 MG TAB PO SCH ×2 (09:32→21:40)
[2022-06-29] MEDS: TOLTERODINE TARTRATE LA 4 MG CAPCR PO SCH (09:32)
[2022-06-29] MEDS: FLUTICASONE/VILANTEROL 100/25MCG 14 PUFFS/INHALER INH SCH (09:32)
[2022-06-29] MEDS: POLYETHYLENE (MIRALAX) 17 GM PACK PO SCH (09:32)
[2022-06-29] MEDS: APIXABAN 5 MG TABLET PO SCH ×2 (09:32→21:41)
--- NOTE | 2022-06-29 10:19 | Hospitalist Progress Note ---
Date of Service June 29, 2022 Assessment & Plan (1) Right leg DVT: Plan: He has 2 nonocclusive thrombi in his RLE on doppler 06/24/22. It is uncertain how old these are; however- nonocclusive nature suggests but does not confirm that they may be chronic. Either way they should be treated. He is not very mobile, has been hospitalized for lengthy period of time, etc. 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 Anticoagulation is NOT contraindicated despite these small aneurysms per Dr Bach. They do require yearly radiological exams. I then called and spoke with the on-call clinical specialist at [facility]. Dr Edmund Gomes of that group operated on Mr Ornelas's right eye on 05/12/22 in [place]. He had a vitreous hemorrhage as well as retinal detachment. He underwent vitrectomy and retinal repair with gas bubble, etc. The on-call clinical specialist stated it was permissible to start full-strength anticoagulation for the DVT given the surgery was on 05/12/22. Spoke briefly with neurology regarding his anti-platelet agents. Given we are starting anticoagulation we can stop asa/plavix to reduce his bleeding risk. Spoke briefly with vascular surgery - given the clots appear chronic - can simply start Eliquis at 5mg twice daily (rather than 1 week of 10mg BID). Discussed all of this in detail with patient. (2) Retinal detachment, right: Plan: s/p surgery for such in [place] 05/12/22 as in #1 above (3) Cerebral aneurysm, nonruptured: Plan: 3mm saccular aneurysm of ant. communicating artery seen on prior CTAs. Additionally, ?small saccular aneurysm vs ulcerated plaque of R ICA on past CTA. see #1 above. These should be followed with yearly CTAs. (4) Weakness: Plan: exact etiology uncertain. no MS flare. no infectious etiologies found this admission. CBC, TSH, B12 all wnl this admission or in recent past. cont PT/OT. will be placed in SNF post-d/c for rehab. (5) Multiple sclerosis: Plan: With recent MRI showing no spinal/brain involvement On every 6 months ocrelizumab last received 1 month ago. No recent steroid treatment Recent follow-up with neurology in the office and MS thought to be stable (06/08/22) (6) Acute CVA (cerebrovascular accident): Plan: Multiple CVAs - ischemic in nature - over the last several years. Most recent fall 2021 WHILE taking asa/plavix. The asa at that time was increased to 325mg daily. He remains on asa albeit at lower dose of 81mg. He is also on statin and plavix. Now that anticoagulation is being started will stop asa/plavix. Will place a formal consult to neuro on Sunday to ensure this is best plan moving forward. (7) Diabetes: Plan: all HbA1c's dating back to 2019 have been <6.5% most recent in fall 2021 it was well below 6% no Rx needed (8) Muscle weakness (generalized): Plan: cont PT/OT to rehab post-discharge (9) Hypertension: Plan: Controlled Cont losartan Cont Amlodipine (10) COPD (chronic obstructive pulmonary disease): Plan: No flare at this time Cont inhalers (11) Gastro-esophageal reflux: Plan: Cont PPI (12) Carotid stenosis, left: Plan: 10/2021 CTA neck did not show any significant stenosis (13) Fall: Plan: fortunately no injuries from today's fall/event Plan updated pt's daughter extensively by phone 06/24/22 Admission and Anticipated Discharge Date Admission Date: June 09, 2022 Subjective Had an episode of near syncope today, BP meds has been held, blood pressure is running low side, monitor for now, patient is ready to be discharged, pending placement Physical Exam Physical Exam: gen - NAD, pleasant eyes - conjunctiva/sclera mildly injected; left sclera/conjunctiva wnl mouth - MMM neck - no JVD heart - RRR, s1 s2, no murmur lungs - CTA b/l abd - soft NT ND BS+ ext - trace edema R foot/ankle; no edema L foot/ankle; pulses 2+ b/l musculo - no signs of trauma to either shoulder, arms, legs, pelvis, back, etc. Results & Data Results & Data ([facility]) Vital Signs (Past 12 Hours) Vital Signs Temp Pulse Resp BP Pulse Ox O2 Del Method 06/29/22 07:30 36.8 C 62 16 130/82 95 Room Air PG Care Time/CCT Total # of Minutes Spent Total Time Spent with Patient: Total time spent is greater than 50% in coordination of care (as documented) at patient's floor/unit and/or counseling patient: Coding Level of Care Code 54947 SUB INP/OBS CARE 2/35MIN Diagnoses Right leg DVT I82.401 Retinal detachment, right H33.21 Cerebral aneurysm, nonruptured I67.1 Weakness R53.1 Multiple sclerosis G35 Acute CVA (cerebrovascular accident) I63.9 Diabetes E11.9 Muscle weakness (generalized) M62.81 Hypertension I10 Hypertension type: essential hypertension COPD (chronic obstructive pulmonary disease) J44.9 COPD type: unspecified COPD Gastro-esophageal reflux K21.9 Esophagitis presence: esophagitis presence not specified Carotid stenosis, left I65.22 Fall W19.XXXA (1) Hypertension Hypertension type: essential hypertension Qualified Code(s): I10 - Essential (primary) hypertension (2) COPD (chronic obstructive pulmonary disease) COPD type: unspecified COPD Qualified Code(s): J44.9 - Chronic obstructive pulmonary disease, unspecified (3) Gastro-esophageal reflux Esophagitis presence: esophagitis presence not specified Qualified Code(s): K21.9 - Gastro-esophageal reflux disease without esophagitis
[2022-06-29] MEDS: LOSARTAN POTASSIUM 25 MG TAB PO SCH ×2 (10:31→21:42)
[2022-06-29] MEDS: amLODIPine BESYLATE 5 MG TAB PO SCH ×2 (10:31→21:41)
--- NOTE | 2022-06-29 12:23 | Hospitalist Progress Note ---
Date of Service June 27, 2022 Assessment & Plan (1) Right leg DVT: Plan: He has 2 nonocclusive thrombi in his RLE on doppler 06/24/22. It is uncertain how old these are; however- nonocclusive nature suggests but does not confirm that they may be chronic. Either way they should be treated. 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 Anticoagulation is NOT contraindicated despite these small aneurysms per Dr Bach. They do require yearly radiological exams. I then called and spoke with the on-call dry wall nailer at [facility]. Dr Edmund Gomes of that group operated on Mr Ornelas's right eye on 05/12/22 in [place]. He had a vitreous hemorrhage as well as retinal detachment. He underwent vitrectomy and retinal repair with gas bubble, etc. The on-call dry wall nailer stated it was permissible to start full-strength anticoagulation for the DVT given the surgery was on 05/12/22. Spoke briefly with neurology regarding his anti-platelet agents. Given we are starting anticoagulation we can stop asa/plavix to reduce his bleeding risk. Spoke briefly with vascular surgery - given the clots appear chronic - can simply start Eliquis at 5mg twice daily (rather than 1 week of 10mg BID). Thus far tolerating Eliquis without any bleeding issues. (2) Retinal detachment, right: Plan: s/p surgery for such in [place] 05/12/22 as in #1 above No visual issues at this time. (3) Cerebral aneurysm, nonruptured: Plan: 3mm saccular aneurysm of ant. communicating artery seen on prior CTAs. Additionally, ?small saccular aneurysm vs ulcerated plaque of R ICA on past CTA. see #1 above. These should be followed with yearly CTAs. (4) Weakness: Plan: exact etiology uncertain. no MS flare. no infectious etiologies found this admission. CBC, TSH, B12 all wnl this admission or in recent past. cont PT/OT. will be placed in SNF post-d/c for rehab. (5) Multiple sclerosis: Plan: 03/15/22 - MRI brain/cervical spine showing no active demyelination. On every 6 months ocrelizumab; last dose received 1 month ago. Recent follow-up with [facility] neurology in the office on 06/08/22; MS thought to be stable at that time. (6) Acute CVA (cerebrovascular accident): Plan: Multiple CVAs - ischemic in nature - over the last several years. Most recent stroke event 2021 WHILE taking asa/plavix. The asa at that time was increased to 325mg daily. He remains on asa albeit at lower dose of 81mg. He is also on statin and plavix. Now that anticoagulation (Eliquis) is being started will stop asa/plavix. (7) Diabetes: Plan: all HbA1c's dating back to 2019 have been <6.5% most recent in fall 2021 - 5.4%; not even in pre-DM range no Rx needed (8) Muscle weakness (generalized): Plan: cont PT/OT to rehab post-discharge (9) Hypertension: Plan: Uncontrolled thus increased amlodipine to 5mg BID 06/26/22 Cont losartan BPs improved with adjustments (10) COPD (chronic obstructive pulmonary disease): Plan: No flare at this time Cont inhalers (11) Gastro-esophageal reflux: Plan: Cont PPI (12) Carotid stenosis, left: Plan: 10/2021 CTA neck did not show any significant stenosis (13) Fall: Plan: fall on 06/26/22 - fortunately no injuries from that event patient did not have syncope did not hit his head no signs of trauma on exam following the fall Plan updated pt's daughter extensively by phone 06/24/22 awaiting SNF placement Admission and Anticipated Discharge Date Admission Date: June 09, 2022 Subjective no issues overnight he states "I feel really good today" denies any new complaints eating well denies visual changes R eye no cp no dyspnea no abd pain Review of Systems Review of Systems: gen - appetite is wnl cv - no chest pain pulm - no cough GI - no abd pain Physical Exam Physical Exam: gen - NAD, pleasant eyes - conjunctiva/sclera mildly injected - improved from prior exams; left sclera/conjunctiva wnl mouth - MMM neck - no JVD heart - RRR, s1 s2, no murmur lungs - CTA b/l abd - soft NT ND BS+ ext - trace edema b/l ankles, pulses 2+ b/l Results & Data Results & Data ([facility]) Vital Signs (Past 12 Hours) Vital Signs 1/24/23 Time: 1540 BP 145/74, RR 18, Temp 36.6 C, Pulse 72, O2 sats 93% in Room air Laboratory Results CBC: WBC 5 Hb 14.1 Platelets 122 Magnesium - 2 PG Care Time/CCT Total # of Minutes Spent Total Time Spent with Patient: Total time spent is greater than 50% in coordination of care (as documented) at patient's floor/unit and/or counseling patient: Coding Level of Care Code 41401 SUB INP/OBS CARE 06/28MIN Diagnoses Right leg DVT I82.401 Retinal detachment, right H33.21 Cerebral aneurysm, nonruptured I67.1 Weakness R53.1 Multiple sclerosis G35 Acute CVA (cerebrovascular accident) I63.9 Diabetes E11.9 Muscle weakness (generalized) M62.81 Hypertension I10 Hypertension type: essential hypertension COPD (chronic obstructive pulmonary disease) J44.9 COPD type: unspecified COPD Gastro-esophageal reflux K21.9 Esophagitis presence: esophagitis presence not specified Carotid stenosis, left I65.22 Fall W19.XXXA (1) Hypertension Hypertension type: essential hypertension Qualified Code(s): I10 - Essential (primary) hypertension (2) COPD (chronic obstructive pulmonary disease) COPD type: unspecified COPD Qualified Code(s): J44.9 - Chronic obstructive pulmonary disease, unspecified (3) Gastro-esophageal reflux Esophagitis presence: esophagitis presence not specified Qualified Code(s): K21.9 - Gastro-esophageal reflux disease without esophagitis
--- NOTE | 2022-06-29 18:13 | Hospitalist Progress Note ---
Date of Service June 29, 2022 Assessment & Plan (1) Right leg DVT: Plan: He has 2 nonocclusive thrombi in his RLE on doppler 06/24/22. It is uncertain how old these are; however- nonocclusive nature suggests but does not confirm that they may be chronic. Either way they should be treated. 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 Anticoagulation is NOT contraindicated despite these small aneurysms per Dr Bach. They do require yearly radiological exams. called and spoke with the on- call track production engineer at [facility]. Dr Edmund Gomes of that group operated on Mr Ornelas's right eye on 05/12/22 in [place]. He had a vitreous hemorrhage as well as retinal detachment. He underwent vitrectomy and retinal repair with gas bubble, etc. The on-call track production engineer stated it was permissible to start full-strength anticoagulation for the DVT given the surgery was on 05/12/22. Spoke briefly with neurology regarding his anti-platelet agents. Given we are starting anticoagulation we can stop asa/plavix to reduce his bleeding risk. Spoke briefly with vascular surgery - given the clots appear chronic - can simply start Eliquis at 5mg twice daily (rather than 1 week of 10mg BID). Thus far tolerating Eliquis without any bleeding issues. (2) Retinal detachment, right: Plan: s/p surgery for such in [place] 05/12/22 as in #1 above No visual issues at this time. (3) Cerebral aneurysm, nonruptured: Plan: 3mm saccular aneurysm of ant. communicating artery seen on prior CTAs. Additionally, ?small saccular aneurysm vs ulcerated plaque of R ICA on past CTA. see #1 above. These should be followed with yearly CTAs. (4) Weakness: Plan: exact etiology uncertain. no MS flare. no infectious etiologies found this admission. CBC, TSH, B12 all wnl this admission or in recent past. cont PT/OT. will be placed in SNF post-d/c for rehab. (5) Multiple sclerosis: Plan: 03/15/22 - MRI brain/cervical spine showing no active demyelination. On every 6 months ocrelizumab; last dose received 1 month ago. Recent follow-up with [facility] [place] in the office on 06/08/22; MS thought to be stable at that time. (6) Acute CVA (cerebrovascular accident): Plan: Multiple CVAs - ischemic in nature - over the last several years. Most recent stroke event 2021 WHILE taking asa/plavix. The asa at that time was increased to 325mg daily. He remains on asa albeit at lower dose of 81mg. He is also on statin and plavix. Now that anticoagulation (Eliquis) is being started will stop asa/plavix. (7) Diabetes: Plan: all HbA1c's dating back to 2019 have been <6.5% most recent in fall 2021 - 5.4%; not even in pre-DM range no Rx needed (8) Muscle weakness (generalized): Plan: cont PT/OT to rehab post-discharge (9) Hypertension: Plan: Uncontrolled thus increased amlodipine to 5mg BID 06/26/22 Cont losartan BPs improved with adjustments (10) COPD (chronic obstructive pulmonary disease): Plan: No flare at this time Cont inhalers (11) Gastro-esophageal reflux: Plan: Cont PPI (12) Carotid stenosis, left: Plan: 10/2021 CTA neck did not show any significant stenosis (13) Fall: Plan: fall on 06/26/22 - fortunately no injuries from that event patient did not have syncope did not hit his head no signs of trauma on exam following the fall Plan updated pt's daughter extensively by phone 06/24/22 awaiting SNF placement Admission and Anticipated Discharge Date Admission Date: June 09, 2022 Subjective no issues overnight he states "I feel really good today" denies any new complaints eating well denies visual changes R eye no cp no dyspnea no abd pain Review of Systems Review of Systems: gen - appetite is wnl cv - no chest pain pulm - no cough GI - no abd pain Physical Exam Physical Exam: gen - NAD, pleasant eyes - conjunctiva/sclera mildly injected; left sclera/conjunctiva wnl mouth - MMM neck - no JVD heart - RRR, s1 s2, no murmur lungs - CTA b/l abd - soft NT ND BS+ ext - trace edema R foot/ankle; no edema L foot/ankle; pulses 2+ b/l musculo - no signs of trauma to either shoulder, arms, legs, pelvis, back, etc. Results & Data Results & Data ([facility]) Vital Signs (Past 12 Hours) Vital Signs Temp Pulse Resp BP Pulse Ox O2 Del Method 06/29/22 15:12 36.3 C L 76 18 135/74 97 Room Air 06/29/22 09:30 Room Air 06/29/22 07:30 36.8 C 62 16 130/82 95 Room Air PG Care Time/CCT Total # of Minutes Spent Total Time Spent with Patient: Total time spent is greater than 50% in coordination of care (as documented) at patient's floor/unit and/or counseling patient: Coding Level of Care Code 22921 SUB INP/OBS CARE 06/28MIN Diagnoses Right leg DVT I82.401 Retinal detachment, right H33.21 Cerebral aneurysm, nonruptured I67.1 Weakness R53.1 Multiple sclerosis G35 Acute CVA (cerebrovascular accident) I63.9 Diabetes E11.9 Muscle weakness (generalized) M62.81 Hypertension I10 Hypertension type: essential hypertension COPD (chronic obstructive pulmonary disease) J44.9 COPD type: unspecified COPD Gastro-esophageal reflux K21.9 Esophagitis presence: esophagitis presence not specified Carotid stenosis, left I65.22 Fall W19.XXXA (1) Hypertension Hypertension type: essential hypertension Qualified Code(s): I10 - Essential (primary) hypertension (2) COPD (chronic obstructive pulmonary disease) COPD type: unspecified COPD Qualified Code(s): J44.9 - Chronic obstructive pulmonary disease, unspecified (3) Gastro-esophageal reflux Esophagitis presence: esophagitis presence not specified Qualified Code(s): K21.9 - Gastro-esophageal reflux disease without esophagitis
[2022-06-29] MEDS: VENLAFAXINE HCL XR 150 MG CAPXR PO SCH (21:40)
[2022-06-29] MEDS: ATORVASTATIN 40 MG TAB PO SCH (21:41)
[2022-06-29] MEDS: QUEtiapine FUMARATE 100 MG TABLET PO SCH (21:42)
[2022-06-29] MEDS: MELATONIN 3 MG TAB PO PRN (21:44)
[2022-06-30] MEDS: FAMOTIDINE 20 MG TAB PO SCH ×2 (09:22→19:58)
[2022-06-30] MEDS: FLUTICASONE/VILANTEROL 100/25MCG 14 PUFFS/INHALER INH SCH (09:22)
[2022-06-30] MEDS: APIXABAN 5 MG TABLET PO SCH ×2 (09:22→19:58)
[2022-06-30] MEDS: TOLTERODINE TARTRATE LA 4 MG CAPCR PO SCH (09:22)
[2022-06-30] MEDS: LOSARTAN POTASSIUM 25 MG TAB PO SCH ×2 (09:22→19:58)
[2022-06-30] MEDS: amLODIPine BESYLATE 5 MG TAB PO SCH ×2 (09:22→19:58)
[2022-06-30] MEDS: PANTOprazole 40 MG TAB PO SCH (09:23)
[2022-06-30] MEDS: POLYETHYLENE (MIRALAX) 17 GM PACK PO SCH (09:23)
--- NOTE | 2022-06-30 18:29 | Hospitalist Progress Note ---
Date of Service June 30, 2022 Assessment & Plan (1) Right leg DVT: Plan: He has 2 nonocclusive thrombi in his RLE on doppler 06/24/22. It is uncertain how old these are; however- nonocclusive nature suggests but does not confirm that they may be chronic. Either way they should be treated. 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 Anticoagulation is NOT contraindicated despite these small aneurysms per Dr Bach. They do require yearly radiological exams. called and spoke with the on- call information security officer at [facility]. Dr Edmund Gomes of that group operated on Mr Ornelas's right eye on 05/12/22 in [place]. He had a vitreous hemorrhage as well as retinal detachment. He underwent vitrectomy and retinal repair with gas bubble, etc. The on-call information security officer stated it was permissible to start full-strength anticoagulation for the DVT given the surgery was on 05/12/22. Spoke briefly with neurology regarding his anti-platelet agents. Given we are starting anticoagulation we can stop asa/plavix to reduce his bleeding risk. Spoke briefly with vascular surgery - given the clots appear chronic - can simply start Eliquis at 5mg twice daily (rather than 1 week of 10mg BID). Thus far tolerating Eliquis without any bleeding issues. (2) Retinal detachment, right: Plan: s/p surgery for such in [place] 05/12/22 as in #1 above No visual issues at this time. (3) Cerebral aneurysm, nonruptured: Plan: 3mm saccular aneurysm of ant. communicating artery seen on prior CTAs. Additionally, ?small saccular aneurysm vs ulcerated plaque of R ICA on past CTA. see #1 above. These should be followed with yearly CTAs. (4) Weakness: Plan: exact etiology uncertain. no MS flare. no infectious etiologies found this admission. CBC, TSH, B12 all wnl this admission or in recent past. cont PT/OT. will be placed in SNF post-d/c for rehab. (5) Multiple sclerosis: Plan: 03/15/22 - MRI brain/cervical spine showing no active demyelination. On every 6 months ocrelizumab; last dose received 1 month ago. Recent follow-up with [facility] neurology in the office on 06/08/22; MS thought to be stable at that time. (6) Acute CVA (cerebrovascular accident): Plan: Multiple CVAs - ischemic in nature - over the last several years. Most recent stroke event 2021 WHILE taking asa/plavix. The asa at that time was increased to 325mg daily. He remains on asa albeit at lower dose of 81mg. He is also on statin and plavix. Now that anticoagulation (Eliquis) is being started will stop asa/plavix. (7) Diabetes: Plan: all HbA1c's dating back to 2019 have been <6.5% most recent in fall 2021 - 5.4%; not even in pre-DM range no Rx needed (8) Muscle weakness (generalized): Plan: cont PT/OT to rehab post-discharge (9) Hypertension: Plan: Uncontrolled thus increased amlodipine to 5mg BID 06/26/22 Cont losartan BPs improved with adjustments (10) COPD (chronic obstructive pulmonary disease): Plan: No flare at this time Cont inhalers (11) Gastro-esophageal reflux: Plan: Cont PPI (12) Carotid stenosis, left: Plan: 10/2021 CTA neck did not show any significant stenosis (13) Fall: Plan: fall on 06/26/22 - fortunately no injuries from that event patient did not have syncope did not hit his head no signs of trauma on exam following the fall Plan updated pt's daughter extensively by phone 06/24/22 awaiting SNF placement Admission and Anticipated Discharge Date Admission Date: June 09, 2022 Subjective No complaint no acute issue Physical Exam Physical Exam: gen - NAD, pleasant eyes - conjunctiva/sclera mildly injected; left sclera/conjunctiva wnl mouth - MMM neck - no JVD heart - RRR, s1 s2, no murmur lungs - CTA b/l abd - soft NT ND BS+ ext - trace edema R foot/ankle; no edema L foot/ankle; pulses 2+ b/l musculo - no signs of trauma to either shoulder, arms, legs, pelvis, back, etc. Results & Data Results & Data ([facility]) Vital Signs (Past 12 Hours) Vital Signs Temp Pulse Pulse Resp BP BP Pulse Ox 06/30/22 14:51 36.6 C 78 18 156/80 H 95 06/30/22 08:00 01/27/23 07:23 36.5 C 65 18 120/75 94 O2 Del Method 06/30/22 14:51 Room Air 06/30/22 08:00 Room Air 06/30/22 07:23 Room Air PG Care Time/CCT Total # of Minutes Spent Total Time Spent with Patient: Total time spent is greater than 50% in coordination of care (as documented) at patient's floor/unit and/or counseling patient: Coding Level of Care Code 34742 SUB INP/OBS CARE 06/28MIN Diagnoses Right leg DVT I82.401 Retinal detachment, right H33.21 Cerebral aneurysm, nonruptured I67.1 Weakness R53.1 Multiple sclerosis G35 Acute CVA (cerebrovascular accident) I63.9 Diabetes E11.9 Muscle weakness (generalized) M62.81 Hypertension I10 Hypertension type: essential hypertension COPD (chronic obstructive pulmonary disease) J44.9 COPD type: unspecified COPD Gastro-esophageal reflux K21.9 Esophagitis presence: esophagitis presence not specified Carotid stenosis, left I65.22 Fall W19.XXXA (1) Hypertension Hypertension type: essential hypertension Qualified Code(s): I10 - Essential (primary) hypertension (2) COPD (chronic obstructive pulmonary disease) COPD type: unspecified COPD Qualified Code(s): J44.9 - Chronic obstructive pulmonary disease, unspecified (3) Gastro-esophageal reflux Esophagitis presence: esophagitis presence not specified Qualified Code(s): K21.9 - Gastro-esophageal reflux disease without esophagitis
[2022-06-30] MEDS: VENLAFAXINE HCL XR 150 MG CAPXR PO SCH (19:58)
[2022-06-30] MEDS: ATORVASTATIN 40 MG TAB PO SCH (19:58)
[2022-06-30] MEDS: QUEtiapine FUMARATE 100 MG TABLET PO SCH (19:58)
[2022-07-01] MEDS: APIXABAN 5 MG TABLET PO SCH ×2 (09:09→20:03)
[2022-07-01] MEDS: FAMOTIDINE 20 MG TAB PO SCH ×2 (09:09→20:03)
[2022-07-01] MEDS: LOSARTAN POTASSIUM 25 MG TAB PO SCH ×2 (09:09→20:03)
[2022-07-01] MEDS: amLODIPine BESYLATE 5 MG TAB PO SCH ×2 (09:09→20:01)
[2022-07-01] MEDS: PANTOprazole 40 MG TAB PO SCH (09:09)
[2022-07-01] MEDS: POLYETHYLENE (MIRALAX) 17 GM PACK PO SCH (09:09)
[2022-07-01] MEDS: TOLTERODINE TARTRATE LA 4 MG CAPCR PO SCH (09:10)
[2022-07-01] MEDS: FLUTICASONE/VILANTEROL 100/25MCG 14 PUFFS/INHALER INH SCH (09:10)
--- NOTE | 2022-07-01 19:58 | Hospitalist Progress Note ---
Date of Service July 01, 2022 Assessment & Plan (1) Parkinsonian features: Plan: Patient presented to the hospital with cognitive impairment, tremor, impaired gait recurrent falls, patient has multiple risk factor can explain it including history of recurrent CVA, MS, however patient has resting tremor, impaired gait, and pill-rolling movements, we will ask neurology consult for possible Parkinson disease (2) Seborrheic dermatitis: Plan: Started on Nizoral shampoo and hydrocortisone (3) Right leg DVT: Plan: Continue Eliquis (4) Retinal detachment, right: Plan: s/p surgery for such in [place] 05/12/22 as in #1 above No visual issues at this time. 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 Additionally, ?small saccular aneurysm vs ulcerated plaque of R ICA on past CTA. These should be followed with yearly CTAs. (6) Multiple sclerosis: Plan: 03/15/22 - MRI brain/cervical spine showing no active demyelination. On every 6 months ocrelizumab; last dose received 1 month ago. Recent follow-up with [facility] neurology in the office on 06/08/22; MS thought to be stable at that time. (7) Acute CVA (cerebrovascular accident): Plan: Multiple CVAs - ischemic in nature - over the last several years. Most recent stroke event 2021 WHILE taking asa/plavix. The asa at that time was increased to 325mg daily. He remains on asa albeit at lower dose of 81mg. He is also on statin and plavix. Now that anticoagulation (Eliquis) is being started will stop asa/plavix. (8) Diabetes: Plan: all HbA1c's dating back to 2019 have been <6.5% most recent in fall 2021 - 5.4%; not even in pre-DM range no Rx needed (9) Muscle weakness (generalized): Plan: cont PT/OT to rehab post-discharge (10) Hypertension: Plan: Good control, will check for orthostatic orthostatic vital (11) COPD (chronic obstructive pulmonary disease): Plan: No flare at this time Cont inhalers (12) Gastro-esophageal reflux: Plan: Cont PPI (13) Carotid stenosis, left: Plan: 10/2021 CTA neck did not show any significant stenosis Admission and Anticipated Discharge Date Admission Date: June 09, 2022 Subjective The patient is a 76-year-old male with a past medical history significant for MS CVA diabetes type 2 hypertension depression GERD overactive bladder presented to the hospital with generalized weakness poor appetite. Diagnosed with DVT pending placement Physical Exam Physical Exam: gen - NAD, pleasant eyes - conjunctiva/sclera mildly injected; left sclera/conjunctiva wnl mouth - MMM neck - no JVD heart - RRR, s1 s2, no murmur lungs - CTA b/l abd - soft NT ND BS+ ext - trace edema R foot/ankle; no edema L foot/ankle; pulses 2+ b/l musculo - no signs of trauma to either shoulder, arms, legs, pelvis, back, etc. Results & Data Results & Data ([facility]) Vital Signs (Past 12 Hours) Vital Signs Temp Pulse Resp BP Pulse Ox O2 Del Method 07/01/22 15:39 76 93 Room Air 07/01/22 15:22 36.8 C 80 16 143/72 H 91 Room Air PG Care Time/CCT Total # of Minutes Spent Total Time Spent with Patient: Total time spent is greater than 50% in coordination of care (as documented) at patient's floor/unit and/or counseling patient: Coding Level of Care Code 02463 SUB INP/OBS CARE 3/50MIN Diagnoses Parkinsonian features R25.9 Seborrheic dermatitis L21.9 Right leg DVT I82.401 Retinal detachment, right H33.21 Cerebral aneurysm, nonruptured I67.1 Multiple sclerosis G35 Acute CVA (cerebrovascular accident) I63.9 Diabetes E11.9 Muscle weakness (generalized) M62.81 Hypertension I10 Hypertension type: essential hypertension COPD (chronic obstructive pulmonary disease) J44.9 COPD type: unspecified COPD Gastro-esophageal reflux K21.9 Esophagitis presence: esophagitis presence not specified Carotid stenosis, left I65.22 (1) Hypertension Hypertension type: essential hypertension Qualified Code(s): I10 - Essential (primary) hypertension (2) COPD (chronic obstructive pulmonary disease) COPD type: unspecified COPD Qualified Code(s): J44.9 - Chronic obstructive pulmonary disease, unspecified (3) Gastro-esophageal reflux Esophagitis presence: esophagitis presence not specified Qualified Code(s): K21.9 - Gastro-esophageal reflux disease without esophagitis
[2022-07-01] MEDS: ATORVASTATIN 40 MG TAB PO SCH (20:03)
[2022-07-01] MEDS: QUEtiapine FUMARATE 100 MG TABLET PO SCH (20:04)
[2022-07-01] MEDS: VENLAFAXINE HCL XR 150 MG CAPXR PO SCH (20:04)
[2022-07-02] MEDS ORDERED: KETOCONAZOLE 2% CR 15 GM TUBE EXT SCH (06:00)
[2022-07-02] MEDS ORDERED: HYDROCORTISONE 2.5% CR 30 GM TUBE EXT SCH (06:00)
[2022-07-02 06:02] LABS: Hematocrit (blood only) 37.4 % (42.0-52.0); Hemoglobin 13.3 g/dl (14.0-18.0); Mean Corpuscular Hemoglobin 30.6 pg (25.0-34.0); Mean Corpuscular Hgb Conc 35.6 g/dL (32.0-36.0); Mean Corpuscular Volume 86.2 fL (80.0-100.0); Mean Platelet Volume 9.9 fL (9.4-12.4); Platelet Count 179 K/uL (130-400); RDW Coefficient of Variation 12.5 % (11.5-14.5); RDW Standard Deviation 39.9 fL (36.4-46.3); Red Blood Count 4.34 M/uL (4.70-6.10); White Blood Count 6.81 K/ul (4.8-10.8)
[2022-07-02 06:49] LABS: Calcium 8.1 mg/dl (8.5-10.1); Potassium 3.6 mmol/L (3.5-5.1)
[2022-07-02 06:55] LABS: BUN Creatinine Ratio 40.9 (10-20); Creatinine Clr Calc Pharmacy 106.1 ml/min; Est GFR (African American) 109.6 ml/min; Est GFR (Non-African American) 94.6 ml/min
[2022-07-02] MEDS: FLUTICASONE/VILANTEROL 100/25MCG 14 PUFFS/INHALER INH SCH (09:26)
[2022-07-02] MEDS: TOLTERODINE TARTRATE LA 4 MG CAPCR PO SCH (09:27)
[2022-07-02] MEDS: APIXABAN 5 MG TABLET PO SCH ×2 (09:27→20:49)
[2022-07-02] MEDS: PANTOprazole 40 MG TAB PO SCH (09:27)
[2022-07-02] MEDS: LOSARTAN POTASSIUM 25 MG TAB PO SCH ×2 (09:27→20:50)
[2022-07-02] MEDS: FAMOTIDINE 20 MG TAB PO SCH ×2 (09:27→20:50)
[2022-07-02] MEDS: amLODIPine BESYLATE 5 MG TAB PO SCH ×2 (09:27→20:49)
[2022-07-02] MEDS: POLYETHYLENE (MIRALAX) 17 GM PACK PO SCH (09:27)
--- NOTE | 2022-07-02 16:29 | Neurology Consultation ---
Date of Consultation July 02, 2022 Assessment & Plan (1) Tremor: Impression: The patient has pill-rolling resting tremor in both hands, which is mild, and does not affect his quality of life much. He does not have any obvious additional parkinsonian symptoms to suggest primary Parkinson's disease. He has been on Seroquel, which might occasionally cause extrapyramidal side effects. He also has slight action induced tremor. Bilateral basal ganglia lacunar infarcts might contribute to the patient's tremor. Plan/recommendations: The patient does not have significant parkinsonism at this time to indicate treatment. If tremor worsens, then next step would be consideration of holding neurolepti c medications for few months, to find out whether Seroquel was responsible for the patient's resting tremor. His tremor and potential future parkinsonian evolvement should be monitored at neurology clinic. We do not have any additional recommendations at this time. Follow-up at neurology clinic as scheduled before. (2) History of CVA (cerebrovascular accident): Impression: The patient has history of multiple transient ischemic attacks and cerebrovascular accidents. Underlying mechanism was likely small vessel disease. Based on recurrent stroke, long-term cardiac rhythm monitoring was recommended before. However, during this hospitalization, the patient was already started on Eliquis for other indication and antiplatelet medications were stopped after consulting with neurology. He is already on statin. Plan: Eliquis and statin for secondary stroke prevention. (3) Generalized weakness: Impression: As seen in history of present illness, the patient was having progressive generalized weakness, probably worsening depression, poor oral intake, and eventually was hospitalized. He has done very well with physical therapy, with improvement no generalized deconditioning and weakness. Plan/recommendations: The patient should continue being physically active after discharge. If indicated, outpatient physical therapy might be considered. Symptoms of depression should be monitored as it might cause poor motivation and sedentary lifestyle. (4) Dehydration: (5) Ambulatory dysfunction: Impression: On this admission, with physical therapy, the patient is ambulation has been improved, back to his baseline. He has MS, cerebrovascular accidents, diabetes induced peripheral polyneuropathy, which contributes to the patient's ambulatory dysfunction. (6) Stroke-like symptoms: (7) Cerebral aneurysm, nonruptured: Impression: This has been followed by vascular/neurosurgery. (8) Carotid stenosis, left: Impression: There is no indication for intervention at this time. The patient will be follow-up with vascular surgery and annual ultrasounds. (9) Multiple sclerosis: Impression: There is no clinical history or imaging findings to suggest MS exacerbation or progression at this time. The patient has been stable on Ocrevus. He has appointment with neurology clinic. (10) Depression with anxiety: Impression: On admission, the patient was likely suffering from worsening depression. His mood has been improved significantly during hospital stay. Thank you for the consultation. Please contact with neurology for any future concerns or questions. History of Present Illness Reason for Consultation: Evaluate for parkinsonism Requesting Physician: Les Yoder MD Attending Physician: Les Yoder MD History of Present Illness The patient is an 76-year-old pleasant gentleman, who is well-known to neurology, with history of multiple sclerosis, recurrent cerebrovascular accidents, diabetes mellitus with peripheral polyneuropathy, who was hospitalized because of progressive global weakness, some cognitive decline, poor appetite and motivation. He was complaining of generalized weakness, and he he was somewhat depressed, not eating and drinking well, and was sedentary for many months. He was hospitalized on 06/08/2022, and hospital stay was complicated with deep venous thrombosis, and the patient was switched from double antiplatelet treatment to Eliquis. He tolerates his medication well. With physical therapy, the patient's strength, and ambulation has been improved significantly, even better than his baseline. He was hospitalized with ambul ation difficulty, and leg weakness, and imaging study showed small lacunar infarct. The patient had had MRI studies of head and cervical spine done, which showed chronic demyelinating plaques but no contrast-enhancement or interval progression, in March 2022. Hospitalist physician noticed that the patient was having pill-rolling resting tremor, which raise concern for parkinsonism, and neurology consultation is requested. The patient reports that he has been having tremor in his hands, in rest, but mostly with action, for last few years. He has not noticed any significant progression. He complains of poor handwriting. However, he can feed himself without significant difficulty. Even though he has soft voice, but he denies any progressive voice quality changes. He and his family did not notice any facial expression change to suggest hypomimia. He denies stiffness in muscles, during ambulation. He can stand up without difficulty, and can ambulate with walker, without shuffling or festination. He also denies symptoms to suggest REM sleep behavior disorder. His mood has been improved during this hospitalization as well as his generalized strength and oral intake. He has been on Seroquel 100 mg daily for a long time for unclear indication. Apparently, Seroquel has not typical neuroleptic to cause extrapyramidal side effects but occasionally, this medication might cause extrapyramidal side effects. However, the patient has only mild tremor, which does not affect his quality of life and we are not certain about indication of this medication. The patient denies family history of Parkinson's disease. He has a bilateral basal ganglia lacunar ischemic strokes, which might induce tremor. The patient does not think that his hand tremor has been worsening. I have reviewed the patient's chart including imaging studies and prior clinic notes. I have discussed the case with the patient and answer his questions in detail. Allergies Allergy/AdvReac Type Severity Reaction Status Date / Time latex Allergy Unknown unknown Verified 06/08/22 18:59 adhesive AdvReac Intermediate RASH UNDER Verified 06/08/22 18:59 TAPES Home Medications Medication Instructions Recorded Confirmed Type polyethylene glycol 3350 17 17 gm PO DAILY PRN constipation 10/14/19 06/08/22 Rx gram/dose oral powder (Miralax) #119 grams cholecalciferol (vitamin D3) 125 5,000 unit PO DAILY 09/01/20 06/08/22 History mcg (5,000 unit) capsule aspirin 81 mg tablet,delayed 81 mg PO QAM #90 tabs 03/11/21 06/08/22 Rx release ipratropium 20 mcg-albuterol 100 2 puff inhalation QID PRN 09/19/21 06/08/22 History mcg/actuation mist for inhalation Shortness Of Breath Or Wheezing (Combivent Respimat) lancets 33 gauge (OneTouch Delica #100 ea 09/27/21 03/23/22 Rx Lancets) blood sugar diagnostic (OneTouch #100 ea 09/29/21 03/23/22 Rx Ultra Test strips) blood-glucose meter (Vilant SystemsTouch #1 ea 09/29/21 03/23/22 Rx Ultra2 Meter kit) quetiapine 100 mg tablet 100 mg PO HS 90 days #90 tabs 09/29/21 06/08/22 Rx metformin 500 mg tablet,extended 500 mg PO QAM #90 tabs 03/20/22 06/08/22 Rx release 24 hr albuterol sulfate 90 mcg/actuation 2 puff inhalation Q4 PRN Shortness 04/11/22 06/08/22 Rx aerosol inhaler Of Breath Or Wheezing #8.5 grams fluticasone 500 mcg-salmeterol 50 1 ea inhalation BID #60 ea 04/11/22 06/08/22 Rx mcg/dose blistr powdr for inhalation miscellaneous medical supply #1 ea 05/05/22 Rx atorvastatin 40 mg tablet 40 mg PO QPM #90 tabs 05/30/22 06/08/22 Rx clopidogrel 75 mg tablet 75 mg PO DAILY #90 tabs 05/30/22 06/08/22 Rx lansoprazole 30 mg capsule,delayed 30 mg PO QAM #90 caps 05/30/22 06/08/22 Rx release (Prevacid) losartan 25 mg tablet 25 mg PO BID #180 tabs 05/30/22 06/08/22 Rx tolterodine 4 mg capsule,extended 4 mg PO QAM bladder control #90 05/30/22 06/08/22 Rx release 24 hr caps venlafaxine 150 mg 150 mg PO HS 90 days #90 caps 05/30/22 06/08/22 Rx capsule,extended release 24 hr docusate sodium 250 mg capsule 250 mg PO HS 06/08/22 06/08/22 History mecobalamin (vitamin B12) 1,000 1,000 mcg sublingual DAILY 06/08/22 06/08/22 History mcg disintegrating tablet,sublingual ocrelizumab 30 mg/mL intravenous 600 mg (20 mL) IV .COMPLEX #20 mL 06/09/22 Rx solution (Ocrevus) Patient History Medical History Acute foreign body of left ear canal Altered mental status COPD (chronic obstructive pulmonary disease) Depression with anxiety Eyebrow laceration Facial abrasion Fall Lumbar radiculopathy Multiple sclerosis Multiple sclerosis Syncope Tinnitus, bilateral Surgical History History of colonoscopy History of open heart surgery S/P cataract surgery S/P tonsillectomy Family History Father , age 78 of cancer (uncertain type) Hypertension Hearing loss Colorectal cancer Mother , age 81 of cancer (uncertain type) Diabetes Hypertension Hearing loss Stroke Breast cancer Sister Hypertension Hearing loss Breast cancer Grandmother (Paternal) Hypertension Brother Hearing loss Social History Smoking Status: Former smoker Tobacco Type: Cigarettes packs per day: 2; Cigarettes Per Day: 2 packs; Smoking End Date: 40 years ago; Second Hand Exposure: No; Do You Dip or Chew Tobacco: No; Tobacco Cessation Education Requested by Patient: No Hx Alcohol Use: Yes Alcohol type: beer Alcohol Intake Frequency: Monthly or Less Hx Substance Use: No Preferred Language: Belarusian Communication Ability: Effective Visual Impairment: Limited Hearing Ability: Use of Hearing Aid Dress Shoe Inspector Required: No Beliefs That Will Affect Care: None marital status: / Current Living Situation: Other Current Living Situation Comment: lives with daughter current occupational status: retired and disabled current occupation: Retired maintenance department @ [employer] How many Children do You have: 1 Other Information That Helps Us Care for You: No Feels Safe at Home: Yes Safety Concerns: Feels Safe At This Time Seatbelt Use: never Sunscreen Use: No Assistive Devices: Cane, Scooter/Electric Scooter and Walker Review of Systems Review of Systems: All systems reviewed & are unremarkable except as noted in HPI & below Physical Exam Physical Exam: General Examination: Constitutional: Well developed person in no acute distress. HENT: Normal exam with inspection. CV: Hearth rhythm is regular. Neck: Supple, no carotid bruits. Lungs: Non-labored and comfortable breathing. Abdomen: Soft, non-tender, non-distended. Skin: No rash or ecchymosis. Extremities: No edema or cyanosis NEUROLOGICAL EXAMINATION: Mental Status: Alert and oriented to place, person and time. Cranial Nerves: II-XII are intact. No nystagmus. Funduscopy: Normal looking optic discs. Motor: 5-/5 in all extremities without asymmetry. 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 Tone: Normal without spasticity or rigidity. Sensory: Decreased sensation in feet. Coordination: No dysmetria with FTN and HTS testing. Speech: Fluent. Comprehension is intact. Slight hypophonia. Gait: He can stand up from chair and walks with walker as usual. No shuffling or festination. Wide based walking pattern.No ataxia. Musculoskeletal: Normal muscle bulk, no atrophy. NELSON: No bradykinesia Slight pill-rolling hand tremors + action tremor is noticed, slightly worse on the left. No drooling, mask facies. Hand writing is somewhat poor but without micrographia. Results & Data ([facility]) Vital Signs (Past 12 Hours) Vital Signs Temp Pulse Pulse Resp BP Pulse Ox O2 Del Method 07/02/22 15:07 36.5 C 78 18 159/67 H 95 Room Air 07/02/22 09:15 Room Air 07/02/22 07:36 36.7 C 66 16 130/71 93 Room Air Laboratory Results Laboratory Results - last 24 hr 07/02/22 07/02/22 05:41 05:41 WBC 6.81 RBC 4.34 L Hgb 13.3 L Hct 37.4 L MCV 86.2 MCH 30.6 MCHC 35.6 RDW Std Deviation 39.9 RDW Coeff of Lilia 12.5 Plt Count 179 MPV 9.9 Sodium 140 Potassium 3.6 Chloride 109 H Carbon Dioxide 27 Anion Gap 4 BUN 27 H Creatinine 0.66 Est Cr Clr Drug Dosing 106.1 Est GFR ( Amer) 109.6 Est GFR (Non-Af Amer) 94.6 BUN/Creatinine Ratio 40.9 H Glucose 87 Calcium 8.1 L Diagnostic Findings KUB X-Ray 06/08/22 17:28 XR KUB/Abdomen 1 view CLINICAL HISTORY: constipation TECHNIQUE: 1 view of the abdomen was obtained. Comparison: Comparison is made to CT abdomen pelvis 06/07/2022 FINDINGS: Lung bases are unremarkable. Degenerative changes are seen in the visualized skeleton. The bowel gas pattern is nonobstructive. Small stool burden is seen. IMPRESSION: No acute abnormality, in particular no evidence of fecal impaction. ACT 112: Negative or not required by law. Electronically signed by: Ayo De Los Santos M.D. 06/08/2022 6:04 PM Venous Doppler Study 06/24/22 12:28 US venous doppler LE RT CLINICAL HISTORY: RLE edema; prolonged hospital stay; r/o DVT TECHNIQUE: Right lower extremity real-time compression venous ultrasound with Color Doppler imaging. Utilizing real-time ultrasonic imaging multiple real time high-resolution ultrasonic images with compression and noncompression maneuvers of the deep venous system in addition to color doppler imaging were performed from the common femoral vein through the proximal calf veins. COMPARISON: None available at the time of this dictation. FINDINGS/IMPRESSION: There is a nonocclusive thrombus in the profunda femoris vein. A nonocclusive thrombus is also seen in the peroneal vein. ACT 112: Negative or not required by law. Electronically signed by: Ayo De Los Santos M.D. 06/24/2022 4:37 PM
--- NOTE | 2022-07-02 17:45 | Hospitalist Progress Note ---
Date of Service July 02, 2022 Assessment & Plan (1) Parkinsonian features: Plan: Patient presented to the hospital with cognitive impairment, tremor, impaired gait recurrent falls, patient has multiple risk factor can explain it including history of recurrent CVA, MS, however patient has resting tremor, impaired gait, and pill-rolling movements, appreciate neurology consult (2) Seborrheic dermatitis: Plan: Started on Nizoral shampoo and hydrocortisone doing better (3) Right leg DVT: Plan: Continue Eliquis (4) Retinal detachment, right: Plan: s/p surgery for such in [place] 05/12/22 as in #1 above No visual issues at this time. 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 Additionally, ?small saccular aneurysm vs ulcerated plaque of R ICA on past CTA. These should be followed with yearly CTAs. (6) Multiple sclerosis: Plan: 03/15/22 - MRI brain/cervical spine showing no active demyelination. On every 6 months ocrelizumab; last dose received 1 month ago. Recent follow-up with [facility] neurology in the office on 06/08/22; MS thought to be stable at that time. (7) Acute CVA (cerebrovascular accident): Plan: Multiple CVAs - ischemic in nature - over the last several years. Most recent stroke event 2021 WHILE taking asa/plavix. The asa at that time was increased to 325mg daily. He remains on asa albeit at lower dose of 81mg. He is also on statin and plavix. Now that anticoagulation (Eliquis) is being started will stop asa/plavix. (8) Diabetes: Plan: all HbA1c's dating back to 2019 have been <6.5% most recent in fall 2021 - 5.4%; not even in pre-DM range no Rx needed (9) Muscle weakness (generalized): Plan: cont PT/OT to rehab post-discharge (10) Hypertension: Plan: Good control, will check for orthostatic orthostatic vital (11) COPD (chronic obstructive pulmonary disease): Plan: No flare at this time Cont inhalers (12) Gastro-esophageal reflux: Plan: Cont PPI (13) Carotid stenosis, left: Plan: 10/2021 CTA neck did not show any significant stenosis Admission and Anticipated Discharge Date Admission Date: June 09, 2022 Subjective The patient is a 76-year-old male with a past medical history significant for MS CVA diabetes type 2 hypertension depression GERD overactive bladder presented to the hospital with generalized weakness poor appetite. Diagnosed with DVT pending placement Physical Exam Physical Exam: gen - NAD, pleasant eyes - conjunctiva/sclera mildly injected; left sclera/conjunctiva wnl mouth - MMM neck - no JVD heart - RRR, s1 s2, no murmur lungs - CTA b/l abd - soft NT ND BS+ ext - trace edema R foot/ankle; no edema L foot/ankle; pulses 2+ b/l musculo - no signs of trauma to either shoulder, arms, legs, pelvis, back, etc. Results & Data Results & Data ([facility]) Vital Signs (Past 12 Hours) Vital Signs Temp Pulse Pulse Resp BP Pulse Ox O2 Del Method 07/02/22 15:07 36.5 C 78 18 159/67 H 95 Room Air 07/02/22 09:15 Room Air 07/02/22 07:36 36.7 C 66 16 130/71 93 Room Air PG Care Time/CCT Total # of Minutes Spent Total Time Spent with Patient: Total time spent is greater than 50% in coordination of care (as documented) at patient's floor/unit and/or counseling patient: Coding Level of Care Code 00844 SUB INP/OBS CARE 06/28MIN Diagnoses Parkinsonian features R25.9 Seborrheic dermatitis L21.9 Right leg DVT I82.401 Retinal detachment, right H33.21 Cerebral aneurysm, nonruptured I67.1 Multiple sclerosis G35 Acute CVA (cerebrovascular accident) I63.9 Diabetes E11.9 Muscle weakness (generalized) M62.81 Hypertension I10 Hypertension type: essential hypertension COPD (chronic obstructive pulmonary disease) J44.9 COPD type: unspecified COPD Gastro-esophageal reflux K21.9 Esophagitis presence: esophagitis presence not specified Carotid stenosis, left I65.22 (1) Hypertension Hypertension type: essential hypertension Qualified Code(s): I10 - Essential (primary) hypertension (2) COPD (chronic obstructive pulmonary disease) COPD type: unspecified COPD Qualified Code(s): J44.9 - Chronic obstructive pulmonary disease, unspecified (3) Gastro-esophageal reflux Esophagitis presence: esophagitis presence not specified Qualified Code(s): K21.9 - Gastro-esophageal reflux disease without esophagitis
[2022-07-02] MEDS: ATORVASTATIN 40 MG TAB PO SCH (20:49)
[2022-07-02] MEDS: QUEtiapine FUMARATE 100 MG TABLET PO SCH (20:50)
[2022-07-02] MEDS: VENLAFAXINE HCL XR 150 MG CAPXR PO SCH (20:50)
[2022-07-03] MEDS: FLUTICASONE/VILANTEROL 100/25MCG 14 PUFFS/INHALER INH SCH (08:33)
[2022-07-03] MEDS: amLODIPine BESYLATE 5 MG TAB PO SCH ×2 (08:34→20:51)
[2022-07-03] MEDS: LOSARTAN POTASSIUM 25 MG TAB PO SCH ×2 (08:34→20:51)
[2022-07-03] MEDS: TOLTERODINE TARTRATE LA 4 MG CAPCR PO SCH (08:34)
[2022-07-03] MEDS: FAMOTIDINE 20 MG TAB PO SCH ×2 (08:34→20:51)
[2022-07-03] MEDS: APIXABAN 5 MG TABLET PO SCH ×2 (08:34→20:51)
[2022-07-03] MEDS: POLYETHYLENE (MIRALAX) 17 GM PACK PO SCH (08:35)
[2022-07-03] MEDS: PANTOprazole 40 MG TAB PO SCH (08:36)
[2022-07-03] MEDS: ATORVASTATIN 40 MG TAB PO SCH (20:51)
[2022-07-03] MEDS: VENLAFAXINE HCL XR 150 MG CAPXR PO SCH (20:52)
[2022-07-03] MEDS: QUEtiapine FUMARATE 100 MG TABLET PO SCH (20:52)
--- NOTE | 2022-07-03 22:38 | Hospitalist Progress Note ---
Date of Service July 03, 2022 Assessment & Plan (1) Hypertension: Plan: Increase the dose of Norvasc to 10 mg daily on 07/03 Increase the dose of losartan 100 mg daily on 07/03 (2) Parkinsonian features: Plan: Patient presented to the hospital with cognitive impairment, tremor, impaired gait recurrent falls, patient has multiple risk factor can explain it including history of recurrent CVA, MS, however patient has resting tremor, impaired gait, and pill-rolling movements, appreciate neurology consult (3) Seborrheic dermatitis: Plan: Started on Nizoral shampoo and hydrocortisone doing better (4) Right leg DVT: Plan: Continue Eliquis (5) Retinal detachment, right: Plan: s/p surgery for such in [place] 05/12/22 as in #1 above No visual issues at this time. 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 Additionally, ?small saccular aneurysm vs ulcerated plaque of R ICA on past CTA. These should be followed with yearly CTAs. (7) Multiple sclerosis: Plan: 03/15/22 - MRI brain/cervical spine showing no active demyelination. On every 6 months ocrelizumab; last dose received 1 month ago. Recent follow-up with [facility] neurology in the office on 06/08/22; MS thought to be stable at that time. (8) Acute CVA (cerebrovascular accident): Plan: Multiple CVAs - ischemic in nature - over the last several years. Most recent stroke event 2021 WHILE taking asa/plavix. The asa at that time was increased to 325mg daily. He remains on asa albeit at lower dose of 81mg. He is also on statin and plavix. Now that anticoagulation (Eliquis) is being started will stop asa/plavix. (9) Diabetes: Plan: all HbA1c's dating back to 2019 have been <6.5% most recent in fall 2021 - 5.4%; not even in pre-DM range no Rx needed (10) Muscle weakness (generalized): Plan: cont PT/OT to rehab post-discharge (11) COPD (chronic obstructive pulmonary disease): Plan: No flare at this time Cont inhalers (12) Gastro-esophageal reflux: Plan: Cont PPI (13) Carotid stenosis, left: Plan: 10/2021 CTA neck did not show any significant stenosis Admission and Anticipated Discharge Date Admission Date: June 09, 2022 Subjective The patient is a 76-year-old male with a past medical history significant for MS CVA diabetes type 2 hypertension depression GERD overactive bladder presented to the hospital with generalized weakness poor appetite. Diagnosed with DVT pending placement Review of Systems Review of Systems: gen - appetite is wnl cv - no chest pain pulm - no cough GI - no abd pain Physical Exam Physical Exam: gen - NAD, pleasant eyes - conjunctiva/sclera mildly injected; left sclera/conjunctiva wnl mouth - MMM neck - no JVD heart - RRR, s1 s2, no murmur lungs - CTA b/l abd - soft NT ND BS+ ext - trace edema R foot/ankle; no edema L foot/ankle; pulses 2+ b/l musculo - no signs of trauma to either shoulder, arms, legs, pelvis, back, etc. Results & Data Results & Data ([facility]) Vital Signs (Past 12 Hours) Vital Signs Temp Pulse Pulse Resp BP BP Pulse Ox 07/03/22 20:50 07/03/22 21:41 162/87 H 07/03/22 20:46 36.8 C 72 20 170/82 H 200/77 H 94 07/03/22 15:53 36.8 C 78 18 162/91 H 96 O2 Del Method 07/03/22 20:50 Room Air 07/03/22 21:41 07/03/22 20:46 Room Air 07/03/22 15:53 Room Air PG Care Time/CCT Total # of Minutes Spent Total Time Spent with Patient: Total time spent is greater than 50% in coordination of care (as documented) at patient's floor/unit and/or counseling patient: Coding Level of Care Code 37844 SUB INP/OBS CARE 2/35MIN Diagnoses Hypertension I10 Hypertension type: essential hypertension Parkinsonian features R25.9 Seborrheic dermatitis L21.9 Right leg DVT I82.401 Retinal detachment, right H33.21 Cerebral aneurysm, nonruptured I67.1 Multiple sclerosis G35 Acute CVA (cerebrovascular accident) I63.9 Diabetes E11.9 Muscle weakness (generalized) M62.81 COPD (chronic obstructive pulmonary disease) J44.9 COPD type: unspecified COPD Gastro-esophageal reflux K21.9 Esophagitis presence: esophagitis presence not specified Carotid stenosis, left I65.22 (1) Hypertension Hypertension type: essential hypertension Qualified Code(s): I10 - Essential (primary) hypertension (2) COPD (chronic obstructive pulmonary disease) COPD type: unspecified COPD Qualified Code(s): J44.9 - Chronic obstructive pulmonary disease, unspecified (3) Gastro-esophageal reflux Esophagitis presence: esophagitis presence not specified Qualified Code(s): K21.9 - Gastro-esophageal reflux disease without esophagitis
[2022-07-04] MEDS: FAMOTIDINE 20 MG TAB PO SCH (08:03)
[2022-07-04] MEDS: APIXABAN 5 MG TABLET PO SCH (08:04)
[2022-07-04] MEDS: TOLTERODINE TARTRATE LA 4 MG CAPCR PO SCH (08:06)
[2022-07-04] MEDS: PANTOprazole 40 MG TAB PO SCH (08:06)
[2022-07-04] MEDS: POLYETHYLENE (MIRALAX) 17 GM PACK PO SCH (08:07)
[2022-07-04] MEDS: FLUTICASONE/VILANTEROL 100/25MCG 14 PUFFS/INHALER INH SCH (08:07)
[2022-07-04] MEDS ORDERED: amLODIPine BESYLATE 5 MG TAB PO SCH ×2 (09:00)
[2022-07-04] MEDS ORDERED: LOSARTAN POTASSIUM 50 MG TAB PO SCH ×2 (09:00)
--- NOTE | 2022-07-04 17:59 | Discharge Summary ---
Date of Service July 04, 2022 Admission HPI Per Admitting Provider Needs placement. Followed with PCP/Neuro Hammad is seen at the bedside with his Was in a few days ago for 3 days of vomiting. Was seen in the ER, got an IV bag of fluid and went home Talked to Dr. Leon and Dr. Jackson. Recommended beign seen in ER due to continued progressive failure to thrive with decreasing appetite and PO intake and weakness. Minimal PO intake, pt with reduced appetite. Only taking a gatorade and some sips per day. Denies hunger, nausea, and vomiting at bedside, has been seen for some nausea limiting appetite previously and in the past week. Overall patient reports just not hungry Discussed as outpt w/ neurology. Do not think its 2/2 a MS flare, but rather chronic decline with hx of high medical burden, recent strokes, and overall poor intake Long periods without showing due to poor strength but does not want hep from caregivers No pain. No fevers, chills, sweats, vomiting/diarrhea. Recommended for contineud care at [facility] by outpt providers, could not continue care at home and came to the ER for assistance. No lab abnormalities For MS takes Orcavest last may, not due for 5 months No recent steroids in last few months Eval in end Oct, no evidence of flare contributing to decline MS flares typically with greatly increased strength overall and difficulty with walker, and some 'floaters' in vision. None of these currently, did have a retinal tear with was repaired in [place], no problems since. Following [facility] Dr. Gomes and Dr. Dickerson. No urinary sx +cold, but no fevers/sweats. No cough. No congestion No chest pain, no chest pressure Medical History: Reviewed Medications: Reviewed Surgical History: Reviewed Allergies: Reviewed Social History: Former smoker 25 years ago. No alcohol. Code Status: DNR/DNI. Principal Diagnosis DVT seborrheic dermatitis, generalized weakness recurrent falls multifactorial Discharge Exam gen - NAD, pleasant eyes - conjunctiva/sclera mildly injected; left sclera/conjunctiva wnl mouth - MMM neck - no JVD heart - RRR, s1 s2, no murmur lungs - CTA b/l abd - soft NT ND BS+ ext - trace edema R foot/ankle; no edema L foot/ankle; pulses 2+ b/l musculo - no signs of trauma to either shoulder, arms, legs, pelvis, back, etc. Discharge Data Allergies Allergy/AdvReac Type Severity Reaction Status Date / Time latex Allergy Unknown unknown Verified 06/08/22 18:59 adhesive AdvReac Intermediate RASH UNDER Verified 06/08/22 18:59 TAPES Consultations 06/08/22 18:37 ED Decision to Admit Stat 07/01/22 19:55 Consult Neurology Routine Ordered Studies 06/24/22 12:28 US venous doppler LE RT Routine Hospital Course (1) Hypertension: Increase the dose of Norvasc to 10 mg daily on 07/03 Increase the dose of losartan 100 mg daily on 07/03 (2) Parkinsonian features: Patient presented to the hospital with cognitive impairment, tremor, impaired gait recurrent falls, patient has multiple risk factor can explain it including history of recurrent CVA, MS, however patient has resting tremor, impaired gait, and pill-rolling movements, appreciate neurology consult (3) Seborrheic dermatitis: Started on Nizoral shampoo and hydrocortisone doing better (4) Right leg DVT: Continue Eliquis (5) Retinal detachment, right: s/p surgery for such in [place] 05/12/22 as in #1 above No visual issues at this time. 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 Additionally, ?small saccular aneurysm vs ulcerated plaque of R ICA on past CTA. These should be followed with yearly CTAs. (7) Multiple sclerosis: 03/15/22 - MRI brain/cervical spine showing no active demyelination. On every 6 months ocrelizumab; last dose received 1 month ago. Recent follow-up with [facility] neurolog[facility] in the office on 06/08/22; MS thought to be stable at that time. (8) Acute CVA (cerebrovascular accident): Multiple CVAs - ischemic in nature - over the last several years. Most recent stroke event 2021 WHILE taking asa/plavix. The asa at that time was increased to 325mg daily. He remains on asa albeit at lower dose of 81mg. He is also on statin and plavix. Now that anticoagulation (Eliquis) is being started stopped asa/plavix. (9) Diabetes: all HbA1c's dating back to 2019 have been <6.5% most recent in fall 2021 - 5.4%; not even in pre-DM range no Rx needed (10) Muscle weakness (generalized): cont PT/OT to rehab post-discharge (11) COPD (chronic obstructive pulmonary disease): No flare at this time Cont inhalers (12) Gastro-esophageal reflux: Cont PPI (13) Carotid stenosis, left: 10/2021 CTA neck did not show any significant stenosis Total Time Total Time Spent Total Time Spent (In Minutes): 45 min Discharge Plan Discharge Items Patient Disposition: Transfer Correction Fac Reason For Visit: WEAKNESS, HX MS Discharge Diagnosis: DVT, seborrheic dermatitis Activity: Resume your previous activity Lifting: Gradually increase as tolerated Bathing: No limitations Sexual Activity: When tolerated Exercise/Sports: Gradually increase as tolerated Weightbearing: Full weightbearing Non-emergency contact: Primary Care Provider Call non-emergency contact if: your symptoms worsen Follow-up/Referrals: Jude De La Rosa MD [Primary Care Provider] - Diet: Heart Healthy Addtl Attending Provider Instructions: Please follow with Primary care doctor in one week Pending Studies at Discharge: No Stand-Alone Forms: My [facility] Skilled Items Patient informed of condition?: Yes DNR: Yes Discharge Level of Care: Skilled Communicable Disease: No Discharge Prognosis: Stable Lines: None Urinary Catheter: No Medications and DC Order Prescriptions: New losartan 50 mg Tablet 100 mg PO DAILY 60 Days Qty: 120 0RF polyethylene glycol 3350 [Miralax] 17 gram Powder In Packet 17 g PO DAILY Qty: 30 0RF amlodipine [Norvasc] 5 mg Tablet 10 mg PO DAILY Qty: 60 0RF famotidine 20 mg Tablet 20 mg PO DAILY Qty: 60 0RF hydrocortisone 2.5 % Cream 1 applic EXT SuTh@0600 Qty: 2 0RF ketoconazole 2 % Cream 1 applic EXT SuTh@0600 Qty: 1 0RF Eliquis 5 mg Tablet 5 mg PO BID Qty: 120 0RF Continued polyethylene glycol 3350 [Miralax] 17 gram/dose powder 17 gm PO DAILY PRN (Reason: constipation) Qty: 119 2RF (DME) lancets [OneTouch Delica Lancets] 33 gauge misc See Rx Instructions .Route Qty: 100 3RF Rx Instructions: As directed (DME) OneTouch Ultra Test Strip See Rx Instructions .Route Qty: 100 3RF Rx Instructions: test once a day (DME) blood-glucose meter [OneTouch Ultra2 Meter] Kit See Rx Instructions .Route Qty: 1 0RF Rx Instructions: TEST ONCE A DAY quetiapine 100 mg tablet 100 mg PO HS 90 Days Qty: 90 3RF albuterol sulfate 90 mcg/actuation HFA aerosol inhaler 2 puff INHALATION Q4 PRN (Reason: Shortness Of Breath Or Wheezing) Qty: 8.5 11RF fluticasone propion-salmeterol 500-50 mcg/dose blister with device 1 ea INHALATION BID Qty: 60 11RF (DME) miscellaneous medical supply Misc See Rx Instructions .Route Qty: 1 0RF Rx Instructions: Standard Hospital Bed Mattress lansoprazole [Prevacid] 30 mg capsule,delayed release(DR/EC) 30 mg PO QAM Qty: 90 0RF atorvastatin 40 mg tablet 40 mg PO QPM Qty: 90 3RF clopidogrel 75 mg tablet 75 mg PO DAILY Qty: 90 3RF tolterodine 4 mg capsule,extended release 24hr 4 mg PO QAM Qty: 90 3RF venlafaxine 150 mg capsule,extended release 24hr 150 mg PO HS 90 Days Qty: 90 3RF Ocrevus 30 mg/mL solution 600 mg IV .COMPLEX Qty: 20 1RF Rx Instructions: 600mg IV every 6 months. cholecalciferol (vitamin D3) 125 mcg (5,000 unit) capsule 5,000 unit PO DAILY mecobalamin (vitamin B12) 1,000 mcg tablet,disintegrating 1,000 mcg sublingual DAILY Rx Instructions: place tablet under tongue and allow to dissolve for at least30 secs before swallowing aspirin 81 mg Tablet,Delayed Release (Dr/Ec) 81 mg PO QAM Qty: 90 0RF docusate sodium 250 mg Capsule 250 mg PO HS Discontinued metformin 500 mg tablet extended release 24 hr 500 mg PO QAM Qty: 90 3RF losartan 25 mg tablet 25 mg PO BID Qty: 180 3RF Combivent Respimat 20-100 mcg/actuation mist 2 puff inhalation QID PRN (Reason: Shortness Of Breath Or Wheezing) Discharge Orders: Discharge Order (Routine); Ordered 07/04/22 Ordered By: Les Yoder Admission Data Admit Date/Time: 06/09/22 15:50 Attending Provider: Les Yoder Admit Provider: Sanchez Benites Primary Care Provider: Jude De La Rosa Other Providers: Sanchez Benites ; [facility] ; Ryan Javier Other Interventions: Discharge Summary Assessment (RN) Last Done: 07/04/22 12:55 Coding Level of Care Code HOSP INP/OBS DISCH >30 MIN Diagnoses Hypertension I10 Hypertension type: essential hypertension Parkinsonian features R25.9 Seborrheic dermatitis L21.9 Right leg DVT I82.401 Retinal detachment, right H33.21 Cerebral aneurysm, nonruptured I67.1 Multiple sclerosis G35 Acute CVA (cerebrovascular accident) I63.9 Diabetes E11.9 Muscle weakness (generalized) M62.81 COPD (chronic obstructive pulmonary disease) J44.9 COPD type: unspecified COPD Gastro-esophageal reflux K21.9 Esophagitis presence: esophagitis presence not specified Carotid stenosis, left I65.22
== END 2022-07-04 13:43 | DRG 556 ==
LOC: EDINP 16:04 → ED 16:04 → SUATTDRO 19:06 → 3N 22:00 → SUATTDRO 06-09 15:50